=== PATIENT | male | born 1940 | race Two or more races ===

== ENCOUNTER 2016-10-23 18:45 | Observation (INO) | payer MEDICARE ==
[2016-10-23] MEDS ORDERED: KETOROLAC 30 MG/ML 1 ML VIAL IVP STA (19:10)
[2016-10-23] MEDS ORDERED: SODIUM CHLORIDE 0.9% 1,000 ML IV STA (19:10)
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
[2016-10-23 20:13] LABS: Basophils # (A) 0.1 k/uL (0-0.2); Basophils % (A) 1 %; CHCM 35.3; Eosinophils # (A) 0.3 k/uL (0-0.7); Eosinophils % (A) 3 %; HCT 35.2 % (39.0-53.0); HDW 2.99; HGB 11.7 gm/dL (13.0-17.5); Luc # (Auto) 0.11; Luc % (Auto) 1; Lymphocytes # (A) 1.9 k/uL (1.0-4.8); Lymphocytes % (A) 21 %; MCH 32.2 pg (25.0-35.0); MCHC 33.3 g/dL (31.0-37.0); MCV 96.9 fL (80.0-100.0); Mean Platelet Volume 9.2; Monocytes # (A) 0.6 k/uL (0-1.0); Monocytes % (A) 6 %; Neutrophils # (A) 6.1 k/uL (1.3-7.7); Neutrophils % (A) 68 %; RBC 3.63 m/uL (4.30-5.90); RDW 13.5 % (11.5-15.5)
--- NOTE | 2016-10-23 20:15 | XR ---
EXAMINATION TYPE: XR chest 2V DATE OF EXAM: 10/23/2016 8:05 PM COMPARISON: 02/18/2016 HISTORY: Chest pain TECHNIQUE: Frontal and lateral views of the chest are obtained. FINDINGS: There is no heart failure nor confluent pneumonic infiltrate. There is a small linear dens ity in the left lower lobe. There are no hilar masses. There are chest leads. Bony thorax is intact. IMPRESSION: Minimal subsegmental atelectasis at the left lung base is new compared to old exam. Norm al heart.
[2016-10-23 20:25] LABS: Calcium 8.7 mg/dL (8.4-10.2); Magnesium 2.1 mg/dL (1.6-2.3); Potassium 4.6 mmol/L (3.5-5.1); Total Bilirubin 0.4 mg/dL (0.2-1.3); Total Protein 6.5 g/dL (6.3-8.2)
[2016-10-23 20:29] LABS: Partial Thromboplastin Time 30.4 sec (22.0-30.0); Prothrombin Time 10.5 sec (9.0-12.0)
[2016-10-23 20:38] LABS: Creatine Kinase 53 U/L (55-170)
[2016-10-23 20:52] LABS: Creatine Kinase MB 0.6 ng/mL (0.0-2.4); Troponin I <0.012 ng/mL (0.000-0.034)
[2016-10-23] MEDS ORDERED: NITROGLYCERIN SL TABS 0.4 MG TAB SUBLINGUAL PRN (22:39)
[2016-10-23] MEDS ORDERED: LORazepam 1 MG TAB PO PRN (22:41)
[2016-10-23] MEDS ORDERED: ZOLPIDEM 10 MG TAB PO PRN (22:41)
[2016-10-23] MEDS ORDERED: HEPARIN SODIUM,PORCINE 5,000 UNIT/ML 1 ML VIAL IV STA (22:44)
[2016-10-23] MEDS: HEPARIN SODIUM,PORCINE/D5W PMX 25,000 UNIT in DEXTROSE/WATER 1 500ML.BAG IV SCH (23:23)
[2016-10-23 23:59] LABS: Glucose,Whole Blood 152 mg/dL (75-99)
[2016-10-24 00:30] VITALS: BMI 26.7
[2016-10-24 03:50] LABS: Creatine Kinase 54 U/L (55-170)
[2016-10-24 04:02] LABS: Creatine Kinase MB 0.7 ng/mL (0.0-2.4); Troponin I <0.012 ng/mL (0.000-0.034)
[2016-10-24] MEDS: NITROGLYCERIN OINT 1 INCH/GM PACKET TOPICAL SCH ×3 (05:59→19:24)
[2016-10-24 07:35] LABS: Glucose,Whole Blood 106 mg/dL (75-99)
[2016-10-24] MEDS: INSULIN LISPRO (humaLOG) 300 UNIT/3 ML VIAL SQ SCH ×4 (08:10→20:35)
[2016-10-24] MEDS: HEPARIN SODIUM,PORCINE/D5W PMX 25,000 UNIT in DEXTROSE/WATER 1 500ML.BAG IV SCH (08:17)
[2016-10-24 08:19] LABS: Cholesterol 117 mg/dL (<200); HDL Cholesterol 36 mg/dL (40-60); Triglycerides 153 mg/dL (<150)
[2016-10-24] MEDS ORDERED: ISOSORBIDE MONONITRATE ER 30 MG TAB.ER.24H PO SCH (09:00)
[2016-10-24 09:04] LABS: Creatine Kinase 73 U/L (55-170)
[2016-10-24 09:18] LABS: Creatine Kinase MB 1.2 ng/mL (0.0-2.4); Troponin I <0.012 ng/mL (0.000-0.034)
--- NOTE | 2016-10-24 10:03 | NM ---
EXAMINATION TYPE: NM pul vent and perfuse DATE OF EXAM: 10/24/2016 9:56 AM COMPARISON: Chest radiograph dated 10/23/2016 HISTORY: Chest pain TECHNIQUE: Utilizing inhalation of 71.2 mCi Tc 99m DTPA aerosol and intravenous injection of 5.4 mCi of Tc 99m MAA, ventilation and perfusion images are acquired post injection in multiple projections. FINDINGS: Small left basilar nonsegmental matched defect is present corresponding to the left basilar atelectas is seen on chest radiograph dated 10/23/2016. Otherwise there is normal radiotracer distribution is no latricia in the remainder of the lungs. There is no evidence of mismatched defects. IMPRESSION: 1. Single nonsegmental matched defect of the left lower lobe corresponding to the left basilar ectasi s noted on the chest radiograph of 10/23/2016. 2. No mismatched defects to suggest pulmonary embolus. Very low probability for pulmonary embolus.
[2016-10-24] MEDS: SODIUM BICARBONATE TAB 650 MG TAB PO SCH ×3 (10:49→20:25)
[2016-10-24] MEDS: ASPIRIN 325 MG TAB PO SCH (10:49)
[2016-10-24] MEDS: traMADol 50 MG TAB PO SCH ×3 (10:49→20:24)
[2016-10-24] MEDS: OXYBUTYNIN CHLORIDE 5 MG TAB PO SCH ×2 (10:50→20:23)
[2016-10-24] MEDS: CILOSTAZOL 100 MG TAB PO SCH ×2 (10:50→20:22)
[2016-10-24] MEDS: PROPRANOLOL 20 MG TAB PO SCH ×3 (10:51→20:25)
[2016-10-24] MEDS: LISINOPRIL 5 MG TAB PO SCH (10:51)
[2016-10-24] MEDS: ATORVASTATIN 40 MG TAB PO SCH (10:51)
[2016-10-24] MEDS: LINAGLIPTIN 5 MG TABLET PO SCH (10:51)
[2016-10-24] MEDS: SERTRALINE 100 MG TAB PO SCH ×2 (10:51→20:24)
[2016-10-24 12:23] LABS: Glucose,Whole Blood 117 mg/dL (75-99)
--- NOTE | 2016-10-24 13:14 | CONS ---
DATE OF CONSULTATION: CHIEF COMPLAINT: Chest pain. Sunday is a 76-year-old gentleman with history of coronary artery disease, status post angioplasty, hypertension, bipolar mood disorder and dyslipidemia who presented to the hospital complaining of chest pain. He describes it as a sharp, precordial pain without definite radiation to neck, arm or back, unrelated to exertion and associated with diaphoresis. He went with these symptoms to his county administrator recently and he was to undergo a stress test as outpatient. He states that the chest discomfort has responded to nitroglycerin but pain also seemed to be chest wall pain. EKG does not show any ischemic changes. Cardiac enzymes have been negative. A d-dimer was done that was slightly elevated. Hence, he went on to have a V/Q scan that is low probability. He had a chest x-ray, which I reviewed and seems fairly benign. EKG is within normal limits. Past medical history is significant for hypertension, diabetes, dyslipidemia, bipolar mood disorder, coronary artery disease, status post angioplasty. Medications include Januvia, Neurontin, tramadol, Requip, Ambien, Zoloft, Seroquel, Inderal, Ditropan, lisinopril, Ativan, Imdur, Pletal, Lipitor and aspirin. ALLERGIES: There are no known drug allergies. Family history is negative for premature coronary artery disease. Social history is negative for smoking, EtOH abuse, or drug abuse. REVIEW OF SYSTEMS: HEENT is unremarkable. CARDIAC: As described above. RESPIRATORY: Negative. GI: Negative. GENITOURINARY: Negative. ALLERGY/IMMUNOLOGY: Negative. SKIN: Negative. ENDOCRINE: Negative. DERM: Negative. CONSTITUTIONAL: Negative. Rest of the system review is not relevant. On exam, comfortable at rest. Vital signs are stable. There is no jugular venous distention. Carotid upstroke is normal. There is no bruit. Chest exam reveals good air entry bilaterally. Heart exam reveals first and second heart sounds. No gallop. No murmur. Abdomen is soft, nontender. Exam of the extremities did not reveal edema. Peripheral pulses are felt. Patient had an echo done which I reviewed, shows normal function and wall motion. EKG is normal. Cardiac enzymes are normal. ASSESSMENT: 1. Chest pain. 2. Coronary artery disease, status post angioplasty. 3. Uncontrolled hypertension. 4. Dyslipidemia. PLAN: Patient's chest discomfort seems atypical and probably noncardiac in origin. I am going to stop the IV heparin, increase the dose of Zestril to 10 mg daily for more optimal control of his blood pressure. He is stable to be discharged home, keep his outpatient followup with Dr. Chow in the office and have an outpatient stress test and followup.
[2016-10-24 13:59] LABS: Hemoglobin A1C 6.2 % (4.2-6.1)
--- NOTE | 2016-10-24 14:06 | ECHOF ---
Referral Reason:cp MEASUREMENTS -------- HEIGHT: 170.2 cm WEIGHT: 77.6 kg BP: 171/74 IVSd: 1.0 cm (0.6 - 1.1) LVIDd: 3.8 cm (3.9 - 5.3) LVPWd: 1.0 cm (0.6 - 1.1) LVIDs: 2.4 cm LA Diam: 3.3 cm (2.7 - 3.8) RVIDd: 2.7 cm (< 3.3) Ao Diam: 3.4 cm (2.0 - 3.7) AV Cusp: 2.4 cm (1.5 - 2.6) EPSS: 0.2 cm MV E Burton: 0.96 m/s MV DecT: 279 ms MV A Burton: 1.07 m/s MV E/A Ratio: 0.89 MV EF SLOPE: 92.75 mm/s (70 - 150) MV EXCURSION: 16.70 mm (> 18.000) FINDINGS -------- Sinus rhythm. This was a technically good study. The left ventricular size is normal. Left ventricular wall thickness is normal. Overall left ventricular systolic function is normal with, an EF between 55 - 60 %. The right ventricle is normal in size. The left atrium is normal in size. The right atrium is normal in size. Aortic valve is trileaflet and is mildly thickened. Mild mitral annular calcification present. There is trace mitral regurgitation. The tricuspid valve appears structurally normal. No regurgitation noted Trace/mild (physiologic) pulmonic regurgitation. CONCLUSIONS -------- 1. Sinus rhythm. 2. Mild mitral annular calcification present. 3. There is trace mitral regurgitation. 4. The tricuspid valve appears structurally normal. 5. Trace/mild (physiologic) pulmonic regurgitation. 6. This was a technically good study. 7. The left ventricular size is normal. 8. Left ventricular wall thickness is normal. 9. Overall left ventricular systolic function is normal with, an EF between 55 - 60 %. 10. The right ventricle is normal in size. 11. The left atrium is normal in size. 12. The right atrium is normal in size. 13. Aortic valve is trileaflet and is mildly thickened. IRRIGATOR VALVE PIPE: Janette Christine [facility]
--- NOTE | 2016-10-24 16:53 | HP ---
This dictation is both H&P and Discharge Summary. DATE OF ADMISSION: A 76-year-old gentleman came in with complaints of chest pain in the left substernal area, appears to be noncardiac and patient had an echocardiogram which is essentially within normal limits. Patient had chest pain which completely resolved at this point of time, was hypertensive and severe nonradiating, not associated with shortness of breath. Patient complained of a bit of pleuritic component because of which patient had a V/Q scan which is essentially negative. Patient's kidney function is not normal. Patient's baseline creatinine appears to be around 1.5 during his last hospitalization and it has gone up to 2.03 today and patient is complaining of multiple episodes of diarrhea today morning, which he says completely resolved at this point of time. Will try and obtain a C. diff testing and if patient does not have any diarrhea, patient will discharged later today in the next couple of hours and if patient's IV fluids are discontinued, I will continue with IV fluids until he is discharged home and also patient is on MAKEDA inhibitor, which will be discontinued, and will use amlodipine because of his kidney dysfunction which is acute renal failure and patient will follow with Dr. Reilly Higginbotham as an outpatient. Patient is cleared for discharge from cardiology perspective. Patient denied any shortness of breath. Patient's chest pain has been completely resolved at this point of time. Patient says it may be related to acid reflux, too. Patient denied any nausea. The patient denied any fever, chills. Patient denied any flulike symptoms. REVIEW OF SYSTEMS: CARDIOVASCULAR: As described in HPI. GASTROINTESTINAL: As described in HPI. CONSTITUTIONAL: No fever, no malaise, no fatigue. HEENT: No recent visual problems or hearing problems. Denied any sore throat. PULMONARY: No shortness of breath, no cough, no hemoptysis. NEUROLOGICAL: No headaches, no weakness, no numbness. HEMATOLOGICAL: Denies any bleeding or petechiae. GENITOURINARY: Denies any burning micturition, frequency, or urgency. MUSCULOSKELETAL/RHEUMATOLOGICAL: Denies any joint pain, swelling, or any muscle pain. ENDOCRINE: Denies any polyuria or polydipsia. The rest of the 14 point review of systems is negative. Home medications include: 1. Atorvastatin. 2. Isosorbide mononitrate. 3. Lorazepam. 4. Oxybutynin. 5. Propranolol. 6. Aspirin. 7. Sertraline. 8. Lisinopril. 9. Cilostazol. 10. Nitroglycerin. 11. Seroquel. 12. Ambien. 13. Ropinirole. 14. Gabapentin. 15. Sodium bicarbonate. 16. Sitagliptin. 17. Tramadol. ALLERGIES: No known drug allergies. 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 FAMILY HISTORY: Significant for mother with hyperlipidemia, hypertension, and brain cancer. Father with hyperlipidemia and hypertension. PHYSICAL EXAMINATION: VITAL SIGNS: Temperature 98.1, pulse of 88, respiratory rate of 18, blood pressure 187/83, saturating at 98% on room air. GENERAL: The patient is alert and oriented x3, not in any acute distress. Well developed, well nourished. HEENT: Pupils are round and equally reacting to light. EOMI. No scleral icterus. No conjunctival pallor. Normocephalic, atraumatic. No pharyngeal erythema. No thyromegaly. CARDIOVASCULAR: S1 and S2 present. No murmurs, rubs, or gallops. PULMONARY: Chest is clear to auscultation, no wheezing or crackles. ABDOMEN: Soft, nontender, nondistended, normoactive bowel sounds. No palpable organomegaly. MUSCULOSKELETAL: No joint swelling or deformity. EXTREMITIES: No cyanosis, clubbing, or pedal edema. NEUROLOGICAL: Gross neurological examination did not reveal any focal deficits. SKIN: No rashes. LABORATORY DATA: CBC, CMP are abnormal for elevated creatinine of 2.03. Baseline creatinine as mentioned above, BUN of 28. Troponins are negative. LDL is 50. EKG did not show any acute ST-T wave changes. ASSESSMENT AND PLAN: 1. Chest pain, appears to be noncardiac. Ruled out acute coronary artery syndrome and ruled out unstable angina. Patient is cleared for discharge from cardiology perspective. Patient had an echocardiogram, did not show any significant wall motion abnormalities. Patient will be discharged today. 2. Acute renal failure, chronic kidney disease. MAKEDA inhibitor will be discontinued and patient will be started on amlodipine instead and patient will be given IV hydration before his discharge, probably related to diarrhea. 3. Chronic kidney disease stage III, probably related to diabetic nephropathy and excessive dyslipidemia. 4. Coronary artery disease, status post angioplasty. 5. Hypertension. 6. Hyperlipidemia. Will repeat basic metabolic profile again. If there is improvement in creatinine or close to his baseline, then patient will be discharged and will make sure patient does not have any diarrhea, patient probably has viral diarrhea, and C. diff testing will be obtained if he has diarrhea again. Ini that situation, patient was hold his discharge. If patient is diarrhea free and if his creatinine improves close to his baseline, patient will be discharged today. DISCHARGE DIET: Cardiac and ADA 1800 calorie diet. Follow with Dr. Reilly Higginbotham in 3 to 5 days. Activity as tolerated. Follow with Cardiology as scheduled. Patient will be given 14 days of empiric Prilosec for possibility of gastroesophageal reflux disease contributing to his admission symptoms.
[2016-10-24 16:55] LABS: Glucose,Whole Blood 245 mg/dL (75-99)
[2016-10-24 17:05] LABS: Calcium 8.8 mg/dL (8.4-10.2); Potassium 4.9 mmol/L (3.5-5.1)
[2016-10-24] MEDS: SODIUM CHLORIDE 0.9% 1,000 ML IV SCH ×2 (19:23→20:39)
[2016-10-24 20:35] LABS: Glucose,Whole Blood 117 mg/dL (75-99)
[2016-10-24] MEDS ORDERED: QUEtiapine 50 MG TAB PO SCH (21:00)
[2016-10-24] MEDS ORDERED: GABAPENTIN 400 MG CAP PO SCH (21:00)
[2016-10-25] MEDS: traMADol 50 MG TAB PO SCH ×2 (05:18→09:06)
[2016-10-25 06:41] LABS: Glucose,Whole Blood 97 mg/dL (75-99)
[2016-10-25 07:31] LABS: Calcium 8.2 mg/dL (8.4-10.2); Potassium 4.2 mmol/L (3.5-5.1)
[2016-10-25 07:55] VITALS: RESP 18
--- NOTE | 2016-10-25 08:35 | PN ---
Sunday is a 76-year-old gentleman who is admitted to hospital with atypical chest pain, ruled out for myocardial infarction, doing well. Was supposed to go home, but did not apparently because of elevated BUN and creatinine. His echocardiogram shows normal LV function. On exam, comfortable at rest. Vital signs are stable. There is no jugular venous distention. Chest exam reveals good air entry bilaterally. Heart exam reveals first and second heart sounds. No gallop. Abdomen is soft, nontender. Exam of the extremities did not reveal any edema. Peripheral pulses are felt. ASSESSMENT: 1. Chest pain, myocardial infarction ruled out. 2. Renal insufficiency. PLAN: Patient already had outpatient echocardiogram stress test set. He is going to keep this appointment and pursue it further.
[2016-10-25] MEDS: INSULIN LISPRO (humaLOG) 300 UNIT/3 ML VIAL SQ SCH ×2 (08:59→13:30)
[2016-10-25] MEDS: SODIUM BICARBONATE TAB 650 MG TAB PO SCH (09:05)
[2016-10-25] MEDS: PROPRANOLOL 20 MG TAB PO SCH (09:05)
[2016-10-25] MEDS: SERTRALINE 100 MG TAB PO SCH (09:05)
[2016-10-25] MEDS: CILOSTAZOL 100 MG TAB PO SCH (09:05)
[2016-10-25] MEDS: OXYBUTYNIN CHLORIDE 5 MG TAB PO SCH (09:06)
[2016-10-25] MEDS: ASPIRIN 325 MG TAB PO SCH (09:06)
[2016-10-25] MEDS: LINAGLIPTIN 5 MG TABLET PO SCH (09:06)
[2016-10-25] MEDS: ATORVASTATIN 40 MG TAB PO SCH (09:06)
[2016-10-25] MEDS: LISINOPRIL 5 MG TAB PO SCH (10:59)
[2016-10-25 12:24] LABS: Glucose,Whole Blood 95 mg/dL (75-99)
[2016-10-25 12:56] VITALS: BP 181/80; TEMP 98.1
[2016-10-25 13:09] VITALS: PULSE 88
--- NOTE | 2016-10-26 12:49 | DS ---
DATE OF ADMISSION: 10/23/2016 DATE OF DISCHARGE: 10/25/2016 Patient is a 76-year-old admitted with diarrhea and chest pain. Patient was ruled out acute coronary artery syndrome and patient was cleared for discharge from Cardiology perspective. Patient's kidney function did not improve in spite of IV fluids. I will still go ahead and discharge the patient as patient's diarrhea resolved. I am hoping his kidney function will improve. Patient is insisting on discharge at this time and patient has mildly elevated creatinine from his baseline of around 1.6 to 2.08. I will repeat the BMP and encourage him to drink lots of water at home and repeat electrolytes will be done and patient will follow with Dr. Reilly Higginbotham as an outpatient. Because of the worsening renal function, I discontinued MAKEDA inhibitor. Patient was started on calcium channel bryan instead and patient is seen and examined on the day of discharge. Vitals are stable. PHYSICAL EXAMINATION: GENERAL: The patient is alert and oriented x3, not in any acute distress. Well developed, well nourished. HEENT: Pupils are round and equally reacting to light. EOMI. No scleral icterus. No conjunctival pallor. Normocephalic, atraumatic. No pharyngeal erythema. No thyromegaly. CARDIOVASCULAR: S1 and S2 present. No murmurs, rubs, or gallops. PULMONARY: Chest is clear to auscultation, no wheezing or crackles. ABDOMEN: Soft, nontender, nondistended, normoactive bowel sounds. No palpable organomegaly. MUSCULOSKELETAL: No joint swelling or deformity. EXTREMITIES: No cyanosis, clubbing, or pedal edema. NEUROLOGICAL: Gross neurological examination did not reveal any focal deficits. SKIN: No rashes. FINAL DIAGNOSES: 1. Chest pain, ruled out acute coronary artery syndrome, noncardiac in nature, probably musculoskeletal. 2. Acute renal failure on chronic kidney disease stage III secondary to diabetes mellitus and diabetic nephropathy. 3. Coronary artery disease. 4. Hypertension. 5. Hyperlipidemia. Please refer my to my depart summary for the list of the discharge medications. Activity as tolerated. Cardiac diet. Follow up with Dr. Reilly Higginbotham in 3 to 7 days.
== END 2016-10-25 14:15 | disposition home or self-care (01) ==
LOC: EC 18:45 → 3OBS 22:39
PROVIDERS: ADMIT Family Medicine; ATTEND Family Medicine
DX: R07.89 Other chest pain (principal); I12.9 Hypertensive chronic kidney disease with stage 1 through stage 4 chronic kidney disease, or unspecified chronic kidney disease; E11.22 Type 2 diabetes mellitus with diabetic chronic kidney disease; E11.21 Type 2 diabetes mellitus with diabetic nephropathy; N17.9 Acute kidney failure, unspecified; N18.3 Chronic kidney disease, stage 3 (moderate); E11.40 Type 2 diabetes mellitus with diabetic neuropathy, unspecified; R19.7 Diarrhea, unspecified; E78.5 Hyperlipidemia, unspecified; R79.89 Other specified abnormal findings of blood chemistry; F31.9 Bipolar disorder, unspecified; F41.9 Anxiety disorder, unspecified; G25.81 Restless legs syndrome; M54.9 Dorsalgia, unspecified; G89.29 Other chronic pain; I25.10 Atherosclerotic heart disease of native coronary artery without angina pectoris; Z79.82 Long term (current) use of aspirin; Z79.899 Other long term (current) drug therapy; Z79.84 Long term (current) use of oral hypoglycemic drugs; Z79.891 Long term (current) use of opiate analgesic; Z85.038 Personal history of other malignant neoplasm of large intestine; Z87.891 Personal history of nicotine dependence; Z98.61 Coronary angioplasty status; Z79.02 Long term (current) use of antithrombotics/antiplatelets; Z82.49 Family history of ischemic heart disease and other diseases of the circulatory system
CPT/HCPCS: 96375; 96376; 99285; 36415; 93005; 93306; 85379; 83880; 80061; 80053; 80048 ×2; 82150; 83036; 82550 ×2; 82553 ×2; 83690; 83735; 84484 ×2; 85025; 85610; 85730 ×2; 80299; 71020; 78582; G0378 ×3; A9540; A9567; J1644 ×3; J1885; 87324; 96366

== ENCOUNTER → 2016-12-04 | Outpatient (CLI) | payer MEDICARE ==
[2016-12-04 11:56] LABS: Basophils # (A) 0.1 k/uL (0-0.2); Basophils % (A) 1 %; CHCM 34.3; Eosinophils # (A) 0.3 k/uL (0-0.7); Eosinophils % (A) 4 %; HCT 37.5 % (39.0-53.0); HDW 3.15; HGB 12.4 gm/dL (13.0-17.5); Luc # (Auto) 0.11; Luc % (Auto) 1; Lymphocytes # (A) 1.5 k/uL (1.0-4.8); Lymphocytes % (A) 19 %; MCHC 33.1 g/dL (31.0-37.0); MCV 99.7 fL (80.0-100.0); Mean Platelet Volume 8.3; Monocytes # (A) 0.4 k/uL (0-1.0); Monocytes % (A) 4 %; Neutrophils % (A) 72 %; RBC 3.77 m/uL (4.30-5.90); WBC 8.3 k/uL (3.8-10.6); WBC (Perox) 8.29
[2016-12-04 12:13] LABS: Magnesium 2.3 mg/dL (1.6-2.3); Potassium 4.4 mmol/L (3.5-5.1); Uric Acid 5.8 mg/dL (3.5-8.5)
[2016-12-04 12:21] LABS: % Iron Saturation 45.6 % (20-50)
[2016-12-04 12:28] LABS: Appearance,Urine Clear (Clear); Bilirubin,Urine Negative (Negative); Glucose,Urine (UA) Negative (Negative); Ketones,Urine Negative (Negative); Leukocyte Esterase,Urine Negative (Negative); Nitrite,Urine Negative (Negative); Protein,Urine Negative (Negative); Specific Gravity,Urine 1.008 (1.001-1.035); UA Billing (MACRO vs. MICRO) CHEM; Urobilinogen,Urine <2.0 mg/dL (<2.0)
== END | disposition home or self-care (01) ==
LOC: LABWHC1 11:23
PROVIDERS: ATTEND Internal Medicine
DX: N18.4 Chronic kidney disease, stage 4 (severe) (principal); N39.0 Urinary tract infection, site not specified; D64.9 Anemia, unspecified; E55.9 Vitamin D deficiency, unspecified; E21.3 Hyperparathyroidism, unspecified; M10.9 Gout, unspecified
CPT/HCPCS: 36415; 80048; 81003; 82306; 82728; 83540; 83550; 83735; 83970; 84100; 84550; 85025

== ENCOUNTER 2017-01-25 06:47 | Day surgery (SDC) | payer MEDICARE ==
[2017-01-21 11:13] VITALS: BMI 27.8
[~2017-01-25 06:47] MED LIST: LACTATED RINGERS 1,000 ML IV SCH
[2017-01-25 07:22] VITALS: RESP 18; TEMP 98.1
[2017-01-25 07:22] LABS: Glucose,Whole Blood 144 mg/dL (75-99)
[2017-01-25] MEDS ORDERED: PHENYLEPHRINE-0.9% NACL SYG 1 MG/10 ML SYRINGE ONE (07:32)
[2017-01-25] MEDS ORDERED: GLYCOPYRROLATE 0.2 MG/ML 2 ML VIAL ONE (07:32)
[2017-01-25] MEDS ORDERED: ePHEDrine 50 MG/ML 1 ML AMP ONE (07:32)
[2017-01-25] MEDS ORDERED: PROPOFOL 10 MG/ML 20 ML VIAL IV ONE (07:32)
--- NOTE | 2017-01-25 08:04 | P.PCN ---
Date of Procedure: 01/25/17 Preoperative Diagnosis: Prior colon cancer Postoperative Diagnosis: Diverticuli, internal hemorrhoids, no recurrent cancer Procedure(s) Performed: Colonoscopy Implants: Anesthesia: MAC Surgeon: Lashon Robert Estimated Blood Loss (ml): 0 IV fluids (ml): 400 Pathology: none sent Condition: stable Disposition: PACU Indications for Procedure: History of colon cancer Operative Findings: No evidence of recurrent cancer, extensive diverticuli, internal hemorrhoids Description of Procedure: Mr. Duncan was taken to the endoscopy suite and was placed in the left lateral decubitus position. Sedation was administered. Rectal examination did not reveal any lesions of concern. Patient was noted to have good sphincter tone. Colonoscope was passed through the anus into the rectum. Was passed through the sigmoid colon up to the splenic flexure. Was passed through the transverse colon to the area of the anastomosis. Circumferential observation mucosa did not reveal any evidence of recurrent cancer at the anastomosis. No mucosal lesions of concern were seen in the transverse colon. As the scope was withdrawn no mucosal lesions of concern were seen in the left colon or sigmoid colon. The patient was noted to have moderate to extensive sigmoid diverticuli with some tortuosity of the sigmoid colon. The scope was brought down into the rectum where it was retroflexed. Internal hemorrhoids were identified. Approximately 6 minutes were taken to withdraw the scope from the area of the anastomosis to the rectum. We discussed preoperative with the the possibility of an EGD and this will most likely be performed at a later time. At this time the patient wished to proceed with colonoscopy. Impression/plan: 1. No evidence of recurrent cancer 2. Sigmoid diverticuli with tortuosity of the sigmoid colon 3. Internal hemorrhoids Plan: 1. Close surveillance 2. Conservative management of diverticuli and hemorrhoids
--- NOTE | 2017-01-25 08:05 | P.DS ---
Providers Attending physician: Lashon Robert Primary care physician: Stated None Plan - Discharge Summary Discharge Medication List Atorvastatin Calcium [Lipitor] 40 mg PO DAILY 01/28/14 [History] Isosorbide Mononitrate [Imdur] 30 mg PO DAILY 01/28/14 [History] LORazepam [Ativan] 2 mg PO BID PRN 01/28/14 [History] Oxybutynin Chloride [Ditropan] 5 mg PO TID 01/28/14 [History] Aspirin EC [Ecotrin] 325 mg PO DAILY 02/18/16 [History] Sertraline [Zoloft] 100 mg PO BID 02/18/16 [History] Cilostazol [Pletal] 50 mg PO BID 08/09/16 [History] Nitroglycerin Sl Tabs [Nitrostat] 0.4 mg SUBLINGUAL Q5M PRN 08/09/16 [History] QUEtiapine [SEROquel] 50 mg PO DAILY 08/09/16 [History] Zolpidem [Ambien] 10 mg PO HS 08/20/16 [History] rOPINIRole HCL [Requip] 0.5 mg PO HS 08/20/16 [History] Gabapentin 800 mg PO HS 10/23/16 [History] Sodium Bicarbonate Tab 300 mg PO TID 10/23/16 [History] sitaGLIPtin [Januvia] 50 mg PO DAILY 10/23/16 [History] traMADol HCL [traMADol HCL ER] 50 mg PO Q6H PRN 10/23/16 [History] Omeprazole [PriLOSEC] 40 mg PO [id number]-[id number] #14 capsule. 10/24/16 [Rx] Atenolol [Tenormin] 50 mg PO DAILY 01/21/17 [History] Ferrous Sulfate [Feosol] 325 mg PO DAILY 01/21/17 [History] Furosemide [Lasix] 40 mg PO BID 01/21/17 [History] HYDROcodone/APAP 10-325MG [[place] 10-325] 1 tab PO Q6H PRN 01/21/17 [History] Lisinopril [Zestril] 5 mg PO DAILY 01/21/17 [History] Multivitamins, Thera [Multivitamin (formulary)] 1 tab PO DAILY 01/21/17 [History ] Follow up Appointment(s)/Referral(s): Lashon Robert MD [STAFF PHYSICIAN] - 3 Days Activity/Diet/Wound Care/Special Instructions: Diverticular diet Discharge Disposition: HOME SELF-CARE
[2017-01-25 08:33] VITALS: BP 121/61; PULSE 62
== END 2017-01-25 08:57 | disposition home or self-care (01) ==
LOC: ORWHC2ENDO 06:47
PROVIDERS: ATTEND Surgery
DX: Z12.11 Encounter for screening for malignant neoplasm of colon (principal); Z85.038 Personal history of other malignant neoplasm of large intestine; K57.30 Diverticulosis of large intestine without perforation or abscess without bleeding; K64.8 Other hemorrhoids; Q43.8 Other specified congenital malformations of intestine; I10 Essential (primary) hypertension; E78.5 Hyperlipidemia, unspecified; I25.10 Atherosclerotic heart disease of native coronary artery without angina pectoris; E11.9 Type 2 diabetes mellitus without complications; N19 Unspecified kidney failure; K21.9 Gastro-esophageal reflux disease without esophagitis; Z79.84 Long term (current) use of oral hypoglycemic drugs; Z79.891 Long term (current) use of opiate analgesic; Z79.899 Other long term (current) drug therapy
CPT/HCPCS: J2370; J2704; G0105

== ENCOUNTER → 2017-02-04 | Outpatient (CLI) | payer MEDICARE ==
[2017-02-04 11:14] LABS: Appearance,Urine Clear (Clear); Bilirubin,Urine 2+ (Negative); Glucose,Urine (UA) Negative (Negative); Ketones,Urine Negative (Negative); Leukocyte Esterase,Urine Negative (Negative); Nitrite,Urine Negative (Negative); PH, Urine 5.5 (5.0-8.0); Protein,Urine Negative (Negative); Specific Gravity,Urine 1.009 (1.001-1.035); UA Billing (MACRO vs. MICRO) CHEM; Urobilinogen,Urine <2.0 mg/dL (<2.0)
[2017-02-04 11:15] LABS: Basophils % (A) 0 %; CH 34.2; CHCM 34.2; Eosinophils # (A) 0.2 k/uL (0-0.7); Eosinophils % (A) 3 %; HCT 36.8 % (39.0-53.0); HDW 2.99; HGB 12.4 gm/dL (13.0-17.5); Luc # (Auto) 0.06; Luc % (Auto) 1; Lymphocytes # (A) 1.1 k/uL (1.0-4.8); Lymphocytes % (A) 13 %; MCH 33.8 pg (25.0-35.0); MCHC 33.6 g/dL (31.0-37.0); MCV 100.7 fL (80.0-100.0); Monocytes # (A) 0.3 k/uL (0-1.0); Monocytes % (A) 4 %; Neutrophils # (A) 6.2 k/uL (1.3-7.7); Neutrophils % (A) 79 %; RBC 3.66 m/uL (4.30-5.90); RDW 13.6 % (11.5-15.5); WBC 7.9 k/uL (3.8-10.6); WBC (Perox) 8.51
[2017-02-04 11:47] LABS: Calcium 8.6 mg/dL (8.4-10.2); Magnesium 2.1 mg/dL (1.6-2.3); Phosphorous 4.6 mg/dL (2.5-4.5); Potassium 4.2 mmol/L (3.5-5.1); Uric Acid 7.5 mg/dL (3.5-8.5)
== END | disposition home or self-care (01) ==
LOC: LABWHC1 10:46
PROVIDERS: ATTEND Nurse Practitioner Family
DX: D64.9 Anemia, unspecified (principal); E83.39 Other disorders of phosphorus metabolism; E55.9 Vitamin D deficiency, unspecified; M10.9 Gout, unspecified; N39.0 Urinary tract infection, site not specified; N18.4 Chronic kidney disease, stage 4 (severe)
CPT/HCPCS: 36415; 80048; 81003; 82306; 82728; 83540; 83550; 83735; 83970; 84100; 84550; 85025

== ENCOUNTER 2017-02-19 04:38 | Emergency (ER) | payer MEDICARE ==
[2017-02-19 04:44] VITALS: BP 172/79; PULSE 61; RESP 20; TEMP 97.9
[2017-02-19] MEDS ORDERED: KETOROLAC 60 MG/2 ML VIAL IM STA (04:56)
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
== END 2017-02-19 05:08 | disposition home or self-care (01) ==
LOC: EC 04:38
DX: E11.40 Type 2 diabetes mellitus with diabetic neuropathy, unspecified (principal); I25.10 Atherosclerotic heart disease of native coronary artery without angina pectoris; E78.5 Hyperlipidemia, unspecified; I10 Essential (primary) hypertension; G25.81 Restless legs syndrome; F41.9 Anxiety disorder, unspecified; F32.9 Major depressive disorder, single episode, unspecified; N28.9 Disorder of kidney and ureter, unspecified; Z79.82 Long term (current) use of aspirin; Z79.84 Long term (current) use of oral hypoglycemic drugs; Z79.899 Other long term (current) drug therapy; Z87.891 Personal history of nicotine dependence
CPT/HCPCS: 99283; 96372; J1885

== ENCOUNTER 2017-03-18 02:08 | Emergency (ER) | payer MEDICARE ==
[2017-03-18 02:17] VITALS: BP 112/68; PULSE 70; RESP 18; TEMP 98.5
[2017-03-18] MEDS ORDERED: MORPHINE SULFATE 10 MG/ML SYRINGE IM STA (02:31)
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
== END 2017-03-18 03:04 | disposition home or self-care (01) ==
LOC: EC 02:08
DX: E11.40 Type 2 diabetes mellitus with diabetic neuropathy, unspecified (principal); I25.10 Atherosclerotic heart disease of native coronary artery without angina pectoris; E78.5 Hyperlipidemia, unspecified; G25.81 Restless legs syndrome; F41.9 Anxiety disorder, unspecified; F32.9 Major depressive disorder, single episode, unspecified; Z79.84 Long term (current) use of oral hypoglycemic drugs; Z79.899 Other long term (current) drug therapy; Z87.891 Personal history of nicotine dependence
CPT/HCPCS: 99283; 96372; J2270

== ENCOUNTER 2017-03-30 00:51 | Emergency (ER) | payer MEDICARE ==
[2017-03-30] MEDS ORDERED: KETOROLAC 30 MG/ML 1 ML VIAL IM STA (01:32)
[2017-03-30] MEDS ORDERED: MORPHINE SULFATE 4 MG/ML SYRINGE IM STA (01:33)
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
[2017-03-30 02:38] VITALS: BP 128/62; PULSE 64; RESP 15; TEMP 97.5
--- NOTE | 2017-03-30 02:45 | XR ---
EXAM: XR Right Knee, 3 views CLINICAL HISTORY: Reason: Right knee pain TECHNIQUE: Three views of the right knee. COMPARISON: No relevant prior studies available. FINDINGS: Bones/joints: The bones are osteopenic. There is advanced tricompartmental degenerative change, with slight medial shift of the femoral condyles in relation to the tibial plateau on the frontal view. No evidence of dislocation or acute fracture seen. Small suprapatellar joint effusion. Soft tissues: Unremarkable. Vasculature: Diffuse arterial vascular calcifications. IMPRESSION: 1. Osteopenia with marked tricompartmental degenerative changes. No superimposed acute fracture. 2. Small suprapatellar joint effusion is nonspecific.
== END 2017-03-30 02:37 | disposition home or self-care (01) ==
LOC: EC 00:51
DX: G62.9 Polyneuropathy, unspecified (principal); M17.11 Unilateral primary osteoarthritis, right knee; G25.81 Restless legs syndrome; I25.10 Atherosclerotic heart disease of native coronary artery without angina pectoris; E11.9 Type 2 diabetes mellitus without complications; E78.5 Hyperlipidemia, unspecified; I10 Essential (primary) hypertension; F32.9 Major depressive disorder, single episode, unspecified; F41.9 Anxiety disorder, unspecified; Z85.038 Personal history of other malignant neoplasm of large intestine; Z87.891 Personal history of nicotine dependence; Z79.82 Long term (current) use of aspirin; Z79.84 Long term (current) use of oral hypoglycemic drugs; Z79.899 Other long term (current) drug therapy
CPT/HCPCS: 99283; 96372 ×2; 73562; J2270; J1885

== ENCOUNTER → 2017-04-02 | Outpatient (CLI) | payer MEDICARE ==
[2017-04-02 12:04] LABS: Basophils % (A) 0 %; CHCM 34.4; Eosinophils # (A) 0.3 k/uL (0-0.7); Eosinophils % (A) 3 %; HCT 37.1 % (39.0-53.0); HDW 3.13; HGB 12.9 gm/dL (13.0-17.5); Luc # (Auto) 0.14; Luc % (Auto) 1; Lymphocytes # (A) 1.5 k/uL (1.0-4.8); Lymphocytes % (A) 14 %; MCH 34.7 pg (25.0-35.0); MCHC 34.8 g/dL (31.0-37.0); MCV 99.5 fL (80.0-100.0); Mean Platelet Volume 8.7; Monocytes # (A) 0.5 k/uL (0-1.0); Monocytes % (A) 4 %; Neutrophils # (A) 8.1 k/uL (1.3-7.7); Neutrophils % (A) 77 %; RBC 3.72 m/uL (4.30-5.90); RDW 13.8 % (11.5-15.5); WBC 10.5 k/uL (3.8-10.6)
[2017-04-02 12:06] LABS: Appearance,Urine Clear (Clear); Bilirubin,Urine 1+ (Negative); Glucose,Urine (UA) Negative (Negative); Ketones,Urine Negative (Negative); Leukocyte Esterase,Urine Negative (Negative); Nitrite,Urine Negative (Negative); Protein,Urine Trace (Negative); Specific Gravity,Urine 1.011 (1.001-1.035); UA Billing (MACRO vs. MICRO) CHEM; Urobilinogen,Urine <2.0 mg/dL (<2.0)
--- NOTE | 2017-04-02 12:07 | XR ---
EXAMINATION TYPE: XR knee complete RT DATE OF EXAM: 04/02/2017 CLINICAL HISTORY: pain TECHNIQUE: Three views of the right knee are obtained. COMPARISON: None. FINDINGS: There is no acute fracture/dislocation. Several degenerative narrowing all compartments. The overlying soft tissue appears unremarkable. IMPRESSION: There is no acute fracture or dislocation.ICD 10 NO FRACTURE, INITIAL EVALUATION
[2017-04-02 12:15] LABS: Magnesium 2.5 mg/dL (1.6-2.3); Phosphorous 3.9 mg/dL (2.5-4.5); Uric Acid 7.6 mg/dL (3.5-8.5)
[2017-04-02 13:01] LABS: Potassium 5.7 mmol/L (3.5-5.1)
== END | disposition home or self-care (01) ==
LOC: LABWHC1 11:22
PROVIDERS: ATTEND Family Medicine
DX: M23.91 Unspecified internal derangement of right knee (principal); N18.4 Chronic kidney disease, stage 4 (severe); D63.1 Anemia in chronic kidney disease; E55.9 Vitamin D deficiency, unspecified; E21.3 Hyperparathyroidism, unspecified; M10.9 Gout, unspecified; N39.0 Urinary tract infection, site not specified
CPT/HCPCS: 36415; 80048; 81003; 82728; 83540; 83550; 83735; 83970; 84100; 84550; 85025

== ENCOUNTER 2017-04-08 12:26 | Emergency (ER) | payer MEDICARE ==
[2017-04-08] MEDS ORDERED: ASPIRIN 325 MG TAB PO STA (13:19)
[2017-04-08] MEDS ORDERED: MORPHINE SULFATE 4 MG/ML SYRINGE IVP STA (13:19)
[2017-04-08 14:22] LABS: Appearance,Urine Clear (Clear); Bilirubin,Urine Negative (Negative); Glucose,Urine (UA) Negative (Negative); Ketones,Urine Negative (Negative); Leukocyte Esterase,Urine Negative (Negative); Nitrite,Urine Negative (Negative); Protein,Urine Negative (Negative); Specific Gravity,Urine 1.005 (1.001-1.035); UA Billing (MACRO vs. MICRO) CHEM; Urobilinogen,Urine <2.0 mg/dL (<2.0)
[2017-04-08 14:27] LABS: Basophils % (A) 1 %; CHCM 35.2; Eosinophils # (A) 0.2 k/uL (0-0.7); Eosinophils % (A) 3 %; HCT 34.6 % (39.0-53.0); HDW 2.93; HGB 12.1 gm/dL (13.0-17.5); Luc # (Auto) 0.06; Luc % (Auto) 1; Lymphocytes # (A) 1.1 k/uL (1.0-4.8); Lymphocytes % (A) 13 %; MCH 34.9 pg (25.0-35.0); MCHC 34.9 g/dL (31.0-37.0); MCV 100.1 fL (80.0-100.0); Mean Platelet Volume 9.4; Monocytes # (A) 0.3 k/uL (0-1.0); Monocytes % (A) 4 %; Neutrophils # (A) 6.8 k/uL (1.3-7.7); Neutrophils % (A) 79 %; RBC 3.46 m/uL (4.30-5.90); RDW 13.8 % (11.5-15.5); WBC 8.6 k/uL (3.8-10.6); WBC (Perox) 9.16
[2017-04-08 14:36] LABS: Calcium 8.2 mg/dL (8.4-10.2)
[2017-04-08 14:43] LABS: Potassium 4.8 mmol/L (3.5-5.1)
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
--- NOTE | 2017-04-08 15:30 | US ---
EXAMINATION TYPE: US venous doppler duplex LE BI DATE OF EXAM: 04/08/2017 3:15 PM COMPARISON: CLINICAL HISTORY: Pain. Bilateral leg pain, no hx of DVT or on blood thinners SIDE PERFORMED: Bilateral TECHNIQUE: The lower extremity deep venous system is examined utilizing real time linear array sonog johnathan with graded compression, doppler sonography and color-flow sonography. VESSELS IMAGED: External Iliac Vein (EIV) Common Femoral Vein Deep Femoral Vein Greater Saphenous Vein * Femoral Vein Popliteal Vein Small Saphenous Vein * Proximal Calf Veins (* superficial vessels) Right Leg: Appears negative for DVT Complex cystic lesion seen in posterior knee = 4.3x 2.8 x 1.6 cm Left Leg: Appears negative for DVT IMPRESSION: 1. THIS EXAMINATION IS NEGATIVE FOR DVT IN BOTH LEGS. 2. COMPLEX 4.3 CM POPLITEAL FOSSA CYST.
--- NOTE | 2017-04-08 15:32 | XR ---
EXAMINATION TYPE: XR chest 2V DATE OF EXAM: 04/08/2017 HISTORY: lower extremity pain. REFERENCE: Previous study dated 10/23/2016. FINDINGS: The patient has taken a relatively poor inspiration. Lungs appear clear. Pleural spaces are clear. The heart projects at the upper limits of normal. There is some unfolding of the thoracic aor ta. IMPRESSION: NO ACUTE INTRATHORACIC ABNORMALITY.
[2017-04-08 16:32] VITALS: BP 135/71; PULSE 62; RESP 16; TEMP 96.7
== END 2017-04-08 16:52 | disposition home or self-care (01) ==
LOC: EC 12:26
DX: G62.9 Polyneuropathy, unspecified (principal); E11.9 Type 2 diabetes mellitus without complications; E78.5 Hyperlipidemia, unspecified; I10 Essential (primary) hypertension; I25.10 Atherosclerotic heart disease of native coronary artery without angina pectoris; F41.9 Anxiety disorder, unspecified; F32.9 Major depressive disorder, single episode, unspecified; G25.81 Restless legs syndrome; Z85.038 Personal history of other malignant neoplasm of large intestine; Z87.891 Personal history of nicotine dependence; Z79.82 Long term (current) use of aspirin; Z79.84 Long term (current) use of oral hypoglycemic drugs; Z79.899 Other long term (current) drug therapy
CPT/HCPCS: 36415; 93005; 83880; 80048; 83605; 84484; 85025; 81003; 71020; 93970; 99284; 96374; J2270

== ENCOUNTER 2017-04-19 14:28 | Emergency (ER) | payer MEDICARE ==
[2017-04-19 14:46] VITALS: BP 118/76; PULSE 69; RESP 20; TEMP 97.4
[2017-04-19] MEDS ORDERED: LORazepam 2 MG/ML SYRINGE IM STA (15:07)
[2017-04-19] MEDS ORDERED: KETOROLAC 60 MG/2 ML VIAL IM STA (15:07)
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
== END 2017-04-19 15:25 | disposition home or self-care (01) ==
LOC: EC 14:28
DX: G25.81 Restless legs syndrome (principal); G62.9 Polyneuropathy, unspecified; F41.9 Anxiety disorder, unspecified; I25.10 Atherosclerotic heart disease of native coronary artery without angina pectoris; E11.9 Type 2 diabetes mellitus without complications; E78.5 Hyperlipidemia, unspecified; I10 Essential (primary) hypertension; Z85.038 Personal history of other malignant neoplasm of large intestine; Z87.891 Personal history of nicotine dependence; Z79.82 Long term (current) use of aspirin; Z79.84 Long term (current) use of oral hypoglycemic drugs; Z79.899 Other long term (current) drug therapy
CPT/HCPCS: 99283; 96372 ×2; J2060; J1885

== ENCOUNTER 2017-05-04 23:41 | Emergency (ER) | payer MEDICARE ==
[2017-05-05] MEDS ORDERED: SODIUM CHLORIDE 0.9% 1,000 ML IV STA ×2 (00:18)
[2017-05-05] MEDS ORDERED: ONDANSETRON 4 MG/2 ML VIAL IVP STA (00:18)
[2017-05-05 01:03] LABS: Basophils % (A) 0 %; CH 35.3; Eosinophils % (A) 0 %; HCT 34.9 % (39.0-53.0); HDW 2.89; HGB 11.7 gm/dL (13.0-17.5); Luc # (Auto) 0.04; Luc % (Auto) 0; Lymphocytes # (A) 0.7 k/uL (1.0-4.8); Lymphocytes % (A) 6 %; MCH 34.1 pg (25.0-35.0); MCHC 33.6 g/dL (31.0-37.0); MCV 101.5 fL (80.0-100.0); Macrocytosis Slight; Mean Platelet Volume 9.7; Monocytes # (A) 0.3 k/uL (0-1.0); Monocytes % (A) 2 %; Neutrophils # (A) 10.9 k/uL (1.3-7.7); Neutrophils % (A) 91 %; RBC 3.44 m/uL (4.30-5.90); RDW 13.6 % (11.5-15.5); WBC 11.9 k/uL (3.8-10.6); WBC (Perox) 12.12
[2017-05-05 01:14] LABS: Calcium 8.9 mg/dL (8.4-10.2); Potassium 4.3 mmol/L (3.5-5.1); Total Bilirubin 0.5 mg/dL (0.2-1.3); Total Protein 6.9 g/dL (6.3-8.2)
--- NOTE | 2017-05-05 01:21 | CT ---
EXAM: CT Head Without Intravenous Contrast CLINICAL HISTORY: Weakness TECHNIQUE: Axial computed tomography images of the head/brain without intravenous contrast. CTDI is 57.4 mGy and DLP is 957.5 mGy-cm. This CT exam was performed using one or more of the following dose reduction techniques: automated exposure control, adjustment of the mA and/or kV according to patient size, and/or use of iterative reconstruction technique. COMPARISON: 05/28/2014 FINDINGS: Brain: No acute intracranial hemorrhage, loss of lake-white differentiation, or significant mass effect. Ventricular and sulcal prominence commensurate with the patient's age. Areas of hypoattenuation in the periventricular white matter bilaterally are compatible with the sequela of chronic small vessel ischemic disease. Ventricles: Unremarkable. No ventriculomegaly. Bones/joints: The calvarium is intact. Soft tissues: Unremarkable. Sinuses: Mild mucosal thickening in the ethmoid sinuses. Mastoid air cells: Unremarkable. Orbits: Left globe prosthesis. Remote fracture of the medial wall of the left orbit. IMPRESSION: No acute intracranial abnormality.
--- NOTE | 2017-05-05 01:33 | XR ---
EXAM: XR Chest, 2 Views CLINICAL HISTORY: Reason: Weakness TECHNIQUE: Frontal and lateral views of the chest. COMPARISON: 04/08/2017 FINDINGS: Lungs: Unremarkable. No consolidation. Pleural space: Unremarkable. No pneumothorax. Heart: Stable cardiomediastinal silhouette. Mediastinum: See above. Bones/joints: No acute osseous abnormality. Upper abdomen: Persistent elevation of the right hemidiaphragm. IMPRESSION: No acute cardiopulmonary process.
[2017-05-05 01:37] LABS: Appearance,Urine Clear (Clear); Bilirubin,Urine Negative (Negative); Glucose,Urine (UA) 3+ (Negative); Ketones,Urine Negative (Negative); Leukocyte Esterase,Urine Negative (Negative); Nitrite,Urine Negative (Negative); Protein,Urine Negative (Negative); Specific Gravity,Urine 1.007 (1.001-1.035); UA Billing (MACRO vs. MICRO) CHEM; Urobilinogen,Urine <2.0 mg/dL (<2.0)
[2017-05-05 01:42] LABS: Creatine Kinase 64 U/L (55-170)
[2017-05-05] MEDS ORDERED: INSULIN REGULAR 100 UNIT/ML VIAL SQ ONE (01:50)
[2017-05-05 01:55] LABS: Creatine Kinase MB 0.8 ng/mL (0.0-2.4); Troponin I <0.012 ng/mL (0.000-0.034)
[2017-05-05 02:02] LABS: Partial Thromboplastin Time 32.3 sec (22.0-30.0); Prothrombin Time 10.6 sec (9.0-12.0)
[2017-05-05 02:40] LABS: Glucose,Whole Blood 239 mg/dL (75-99)
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
[2017-05-05 03:12] VITALS: BP 128/82; PULSE 80; RESP 16; TEMP 97.9
== END 2017-05-05 03:11 | disposition home or self-care (01) ==
LOC: EC 23:41
DX: E11.65 Type 2 diabetes mellitus with hyperglycemia (principal); R26.81 Unsteadiness on feet; I25.10 Atherosclerotic heart disease of native coronary artery without angina pectoris; E78.5 Hyperlipidemia, unspecified; I10 Essential (primary) hypertension; F32.9 Major depressive disorder, single episode, unspecified; F41.9 Anxiety disorder, unspecified; E11.40 Type 2 diabetes mellitus with diabetic neuropathy, unspecified; Z85.038 Personal history of other malignant neoplasm of large intestine; Z87.891 Personal history of nicotine dependence; Z79.82 Long term (current) use of aspirin; Z79.899 Other long term (current) drug therapy
CPT/HCPCS: 36415; 93005; 80053; 82550; 82553; 83605; 84484; 85025; 85610; 85730; 81003; 71020; 70450; 99285; 96374; 96361 ×2; J2405

== ENCOUNTER → 2017-05-28 | Outpatient (CLI) | payer MEDICARE ==
[2017-05-28 11:55] LABS: Calcium 8.8 mg/dL (8.4-10.2); Magnesium 2.6 mg/dL (1.6-2.3); Phosphorous 4.3 mg/dL (2.5-4.5); Potassium 4.8 mmol/L (3.5-5.1); Total Bilirubin 0.4 mg/dL (0.2-1.3); Uric Acid 8.2 mg/dL (3.5-8.5)
== END | disposition home or self-care (01) ==
LOC: LABWHC1 11:03
PROVIDERS: ATTEND Internal Medicine
DX: N18.4 Chronic kidney disease, stage 4 (severe) (principal); E21.3 Hyperparathyroidism, unspecified; E55.9 Vitamin D deficiency, unspecified; M10.9 Gout, unspecified
CPT/HCPCS: 36415; 80053; 82306; 83735; 83970; 84100; 84550

== ENCOUNTER → 2017-07-20 | Outpatient (CLI) | payer MEDICARE ==
[2017-07-20 14:43] LABS: Calcium 8.6 mg/dL (8.4-10.2); Magnesium 2.2 mg/dL (1.6-2.3); Phosphorus 3.7 mg/dL (2.5-4.5); Potassium 4.4 mmol/L (3.5-5.1); Total Bilirubin 0.3 mg/dL (0.2-1.3); Total Protein 6.5 g/dL (6.3-8.2); Uric Acid 4.8 mg/dL (3.5-8.5)
== END ==
LOC: LABWHC1 13:39
PROVIDERS: ATTEND Nurse Practitioner Family
DX: E55.9 Vitamin D deficiency, unspecified (principal); M10.9 Gout, unspecified; E21.3 Hyperparathyroidism, unspecified; N18.4 Chronic kidney disease, stage 4 (severe)
CPT/HCPCS: 36415; 80053; 82306; 83735; 83970; 84100; 84550

== ENCOUNTER → 2017-08-03 | Outpatient (CLI) | payer MEDICARE ==
--- NOTE | 2017-08-03 13:43 | XR ---
EXAMINATION TYPE: XR chest 2V DATE OF EXAM: 08/03/2017 COMPARISON: 05/05/2017 INDICATION: Acute bronchitis TECHNIQUE: Frontal and lateral views of the chest are obtained. FINDINGS: The heart size is normal. The pulmonary vasculature is normal. The lungs are clear. IMPRESSION: 1. No acute pulmonary process.
== END | disposition home or self-care (01) ==
LOC: RADXRMAIN 13:23
PROVIDERS: ATTEND Family Medicine
DX: J20.9 Acute bronchitis, unspecified (principal)
CPT/HCPCS: 71020

== ENCOUNTER 2017-08-28 16:47 | Emergency (ER) | payer MEDICARE ==
[2017-08-28 17:07] VITALS: RESP 18
[2017-08-28] MEDS ORDERED: ONDANSETRON 4 MG/2 ML VIAL IVP STA (17:21)
[2017-08-28] MEDS ORDERED: HYDROmorphone 1 MG/ML 1 ML SYRINGE IVP STA (17:24)
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
[2017-08-28 18:23] LABS: Basophils # (A) 0.1 k/uL (0-0.2); Basophils % (A) 1 %; CH 33.6; CHCM 32.5; Eosinophils # (A) 0.4 k/uL (0-0.7); Eosinophils % (A) 5 %; HCT 36.1 % (39.0-53.0); HDW 2.77; HGB 11.7 gm/dL (13.0-17.5); Luc # (Auto) 0.05; Luc % (Auto) 1; Lymphocytes % (A) 14 %; MCH 33.7 pg (25.0-35.0); MCHC 32.4 g/dL (31.0-37.0); MCV 104.1 fL (80.0-100.0); Macrocytosis Slight; Monocytes # (A) 0.3 k/uL (0-1.0); Monocytes % (A) 5 %; Neutrophils # (A) 5.3 k/uL (1.3-7.7); Neutrophils % (A) 75 %; RBC 3.47 m/uL (4.30-5.90); RDW 14.3 % (11.5-15.5); WBC 7.1 k/uL (3.8-10.6); WBC (Perox) 7.43
[2017-08-28 18:26] LABS: Appearance,Urine Clear (Clear); Bilirubin,Urine 3+ (Negative); Glucose,Urine (UA) Negative (Negative); Ketones,Urine Negative (Negative); Leukocyte Esterase,Urine Negative (Negative); Nitrite,Urine Negative (Negative); Protein,Urine Trace (Negative); Specific Gravity,Urine 1.018 (1.001-1.035); UA Billing (MACRO vs. MICRO) CHEM; Urobilinogen,Urine <2.0 mg/dL (<2.0)
[2017-08-28 18:34] LABS: Potassium 4.3 mmol/L (3.5-5.1); Total Bilirubin 0.4 mg/dL (0.2-1.3); Total Protein 6.9 g/dL (6.3-8.2)
--- NOTE | 2017-08-28 18:46 | XR ---
EXAMINATION TYPE: 3 views thoracic spine. 3 views lumbar spine. DATE OF EXAM: 08/28/2017 COMPARISON: NONE HISTORY: 77-year-old male with chronic back pain FINDINGS: Thoracic spine: 12 rib-bearing thoracic vertebral bodies. All pedicles are visualized. Gentle S-shaped angulation of the thoracolumbar spine. Moderate endplate spondylosis lower thoracic spine and thoracolumbar junctio n. Vertebral body heights are preserved. Cervical spondylosis is noted. Alignment appears maintained. Lumbar spine: Degenerated levoconvex curvature with 5 lumbar type vertebral bodies. Bulky left lateral endplate spo ndylosis. Severe disc/endplate degenerative change with multiple levels of significant disc interspac e narrowing and vacuum phenomenon with endplate sclerosis and spondylosis. Vertebral body heights are preserved and alignment is maintained. Hypertrophic facet arthropathy throughout. IMPRESSION: 1. Mild degenerated S-shaped curvature of the thoracolumbar spine. 2. No vertebral compression collapse or malalignment seen. 3. Moderate spondylotic change lower thoracic spine and thoracolumbar junction. 4. Moderate to severe disc/endplate degenerative change throughout the lumbar spine as well as hypert rophic facet arthropathy.
[2017-08-28 19:02] LABS: INR 1.1 (<1.2); Prothrombin Time 10.3 sec (9.0-12.0)
--- NOTE | 2017-08-28 20:26 | US ---
EXAMINATION TYPE: US abdomen limited DATE OF EXAM: 08/28/2017 COMPARISON: NONE CLINICAL HISTORY: 77-year-old male with back pain and abdominal pain with diarrhea . TECHNIQUE: Multiple sonographic images of the right upper quadrant are obtained. FINDINGS: CHANNELER OUTSOLE NOTES: Limited due to patient's ability to hold breath and bowel gas from patient eating four hours ago. Liver Length: 15.4 cm Gallbladder Wall: 0.3 cm CBD: 0.3 cm Right Kidney: 9.2 x 4.3 x 4.7 cm Pancreas: Obscured by bowel gas Liver: Only portions are visualized. The visualized portions show no gross abnormality. Gallbladder: No abnormal gallbladder distention, wall thickening, pericholecystic fluid, or shadowin g calculi. Evidence for sonographic Sal[place]'s sign: No CBD: Normal caliber. Right Kidney: Measures slightly small and appears increased echogenicity. Findings suggest underlyin g chronic medical renal disease. No hydronephrosis. IMPRESSION: 1. Exam limitations as mentioned above. There are limited views of the liver. The pancreas is obscure d. 2. No evidence for cholelithiasis, acute cholecystitis, or biliary ductal dilatation.
[2017-08-28 21:03] VITALS: BP 146/67; PULSE 67; TEMP 98
== END 2017-08-28 21:03 | disposition home or self-care (01) ==
LOC: EC 16:47
DX: K85.90 Acute pancreatitis without necrosis or infection, unspecified (principal); M47.815 Spondylosis without myelopathy or radiculopathy, thoracolumbar region; M46.96 Unspecified inflammatory spondylopathy, lumbar region; R74.8 Abnormal levels of other serum enzymes; R93.421 Abnormal radiologic findings on diagnostic imaging of right kidney; R19.7 Diarrhea, unspecified; E78.5 Hyperlipidemia, unspecified; I10 Essential (primary) hypertension; I25.10 Atherosclerotic heart disease of native coronary artery without angina pectoris; E11.9 Type 2 diabetes mellitus without complications; G25.81 Restless legs syndrome; G62.9 Polyneuropathy, unspecified; G89.29 Other chronic pain; N28.9 Disorder of kidney and ureter, unspecified; F32.9 Major depressive disorder, single episode, unspecified; F41.9 Anxiety disorder, unspecified; Z87.891 Personal history of nicotine dependence; Z79.1 Long term (current) use of non-steroidal anti-inflammatories (NSAID); Z79.82 Long term (current) use of aspirin; Z79.84 Long term (current) use of oral hypoglycemic drugs; Z79.899 Other long term (current) drug therapy; Z85.038 Personal history of other malignant neoplasm of large intestine; Z90.49 Acquired absence of other specified parts of digestive tract
CPT/HCPCS: 36415; 80053; 83690; 85025; 85610; 85730; 81003; 72072; 72100; 76705; 99284; 96374; 96375; J2405; J1170

== ENCOUNTER → 2017-09-19 | Outpatient (CLI) | payer MEDICARE ==
--- NOTE | 2017-09-19 12:51 | MR ---
EXAMINATION TYPE: MR lumbar spine wo con DATE OF EXAM: 09/19/2017 COMPARISON: Radiographs of the lumbar spine dated 08/28/2017 HISTORY: Radiculopathy, lumbar region. Chronic low back pain with no known injury. TECHNIQUE: Multiplanar, multisequence images of the lumbar spine were acquired. The lumbar spine maintains normal vertebral body heights and alignment. Bone marrow signal is within normal limits. Conus medullaris is unremarkable terminating at L1. Multilevel disc desiccation, inter vertebral disc space narrowing, anterior osteophytes, and facet arthropathy are noted. T12-L1: There is a broad-based disc bulge, left eccentric resulting in moderate left and mild right n eural foraminal narrowing. Facet arthropathy and ligamentum flavum buckling contribute to mild spinal canal stenosis at this level. L1-L2: There is a right eccentric broad-based disc bulge, facet arthropathy, and ligamentum flavum bu ckling that together create severe right neural foraminal narrowing, mild left neural foraminal narro wing, and moderate spinal canal stenosis with buckling of the nerve roots. L2-L3: There is near complete intervertebral disc height loss. Posterior disc osteophyte complexes pr otrude into the neural foramen bilaterally, right greater than left creating severe right neural fora katrin narrowing and moderate left neural foraminal narrowing. Facet arthropathy and ligamentum flavum buckling contribute to mild spinal canal stenosis and buckling of the nerve roots. L3-L4: There is a large right lateral disc herniation with a foraminal component resulting in severe right neural foraminal narrowing impinging upon the L3 nerve root. Mild left neural foraminal narrowi ng is seen. Extensive ligamentum flavum buckling and facet arthropathy are seen creating severe spina l canal stenosis at this level with buckling of the nerve roots. L4-L5: There is a right foraminal disc herniation superimposed upon a right eccentric broad-based dis c bulge. Facet arthropathy and ligamentum flavum buckling are also seen creating severe right neural foraminal narrowing and moderate left neural foraminal narrowing as well as severe spinal canal steno sis and buckling of the nerve roots. L5-S1: A broad-based disc bulge is seen in combination with facet arthropathy and ligamentum flavum b uckling creating mild spinal canal stenosis and mild bilateral neural foraminal narrowing. IMPRESSION: 1. Large right lateral disc herniation with a foraminal component at L3-L4 resulting in severe right neural foraminal narrowing impinging on the L3 nerve root. Ligamentum flavum buckling and facet arthr opathy contribute to severe spinal canal stenosis with buckling of the nerve roots at this level. 2. Right foraminal disc herniation superimposed on a broad-based disc bulge at L4-L5 creating severe right neural foraminal narrowing and moderate left neural foraminal narrowing is most severe spinal c anal stenosis and buckling of the nerve roots. 3. Multilevel degenerative disc disease creating variable degrees of neural foraminal stenosis as luz cribed above with mild spinal canal stenosis at T12-L1, moderate spinal canal stenosis at L1-L2, mild spinal canal stenosis at L2-L3, severe spinal canal stenosis at L3-L5, and mild spinal canal stenosi s at L5-S1.
== END | disposition home or self-care (01) ==
LOC: RADMRIMAIN 11:38
PROVIDERS: ATTEND Family Medicine
DX: M48.07 Spinal stenosis, lumbosacral region (principal); M48.04 Spinal stenosis, thoracic region; M99.73 Connective tissue and disc stenosis of intervertebral foramina of lumbar region; M51.15 Intervertebral disc disorders with radiculopathy, thoracolumbar region
CPT/HCPCS: 72148

== ENCOUNTER 2017-09-20 13:21 | Emergency (ER) | payer MEDICARE ==
[2017-09-20 14:01] VITALS: BP 107/58; PULSE 88; RESP 18; TEMP 98
[2017-09-20] MEDS ORDERED: KETOROLAC 30 MG/ML 1 ML VIAL IM STA (15:55)
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
== END 2017-09-20 16:39 | disposition home or self-care (01) ==
LOC: EC 13:21
DX: G89.29 Other chronic pain (principal); M54.5 Low back pain; I25.10 Atherosclerotic heart disease of native coronary artery without angina pectoris; E11.9 Type 2 diabetes mellitus without complications; E78.5 Hyperlipidemia, unspecified; I10 Essential (primary) hypertension; G25.81 Restless legs syndrome; F41.9 Anxiety disorder, unspecified; G62.9 Polyneuropathy, unspecified; F32.9 Major depressive disorder, single episode, unspecified; Z87.891 Personal history of nicotine dependence; Z85.038 Personal history of other malignant neoplasm of large intestine; Z79.52 Long term (current) use of systemic steroids; Z79.82 Long term (current) use of aspirin; Z79.84 Long term (current) use of oral hypoglycemic drugs; Z79.899 Other long term (current) drug therapy
CPT/HCPCS: 99283; 96372; J1885

== ENCOUNTER → 2017-10-22 | Outpatient (CLI) | payer MEDICARE ==
--- NOTE | 2017-10-22 14:37 | XR ---
EXAMINATION TYPE: XR chest 2V DATE OF EXAM: 10/22/2017 COMPARISON: 08/03/2017 HISTORY: Shortness of breath TECHNIQUE: Frontal and lateral views of the chest are obtained. FINDINGS: Scattered senescent parenchymal changes noted. Hyperinflation compatible with COPD. No evidence for infiltrate. No evidence for atelectasis. Heart size is stable. Mediastinal structures are stable and grossly unremarkable. No evidence for hilar prominence. Degenerative changes dorsal spine. IMPRESSION: 1. No evidence for acute pulmonary disease.
== END | disposition home or self-care (01) ==
LOC: RADXRMAIN 11:02
PROVIDERS: ATTEND Family Medicine
DX: J44.9 Chronic obstructive pulmonary disease, unspecified (principal)
CPT/HCPCS: 71046

== ENCOUNTER 2017-10-26 06:55 | Day surgery (SDC) | payer MEDICARE ==
[2017-10-24 10:08] VITALS: BMI 28.1
[2017-10-26 07:25] VITALS: TEMP 98
[2017-10-26 07:26] LABS: Glucose,Whole Blood 130 mg/dL (75-99)
[2017-10-26] MEDS ORDERED: PROPOFOL 10 MG/ML 20 ML VIAL IV ONE (07:41)
--- NOTE | 2017-10-26 07:59 | P.PCN ---
Date of Procedure: 10/26/17 Procedure(s) Performed: BRIEF HISTORY: Patient is a 77-year-old, pleasant, white male, scheduled for an upper endoscopy as a part of evaluation of intermittent dysphagia to solids for the last few months duration. He is hence scheduled for an upper endoscopy with a possible dilation. PROCEDURE PERFORMED: Esophagogastroduodenoscopy with biopsy. PREOPERATIVE DIAGNOSIS: Intermittent dysphagia to solids of 6 months duration. IV sedation per anesthesia. PROCEDURE: After informed consent was obtained, the patient was brought into the endoscopy unit. IV sedation was administered by Anesthesia under continuous monitoring. Initially the Olympus GIF-140 video endoscope was inserted into the mouth. Esophagus intubated without any difficulty. It was gradually advanced into the stomach and duodenum and carefully examined. The bulb and the second part of the duodenum appeared normal. The scope at this time was withdrawn to the stomach, adequately insufflated with air, and upon careful examination, mucosa of the antrum, had mild diffuse gastritis and biopsies were done from this area. The body, cardia and the fundus appeared normal. The scope was then withdrawn into the esophagus. The GE junction was located at 39 cm from the incisors. The esophagus appeared normal. There were no erosions or ulcerations seen and the patient tolerated the procedure well. IMPRESSION: 1. Mild antral gastritis. 2. Normal-appearing esophagus with no evidence of esophagitis or esophageal stricture. RECOMMENDATIONS: The findings of this examination were discussed with the patient as well as his family. He was advised to continue with Prilosec 20 mg daily and follow antireflux measures. He will be seen in office in 4-6 weeks.
[2017-10-26 08:14] VITALS: BP 162/77; PULSE 98; RESP 18
== END 2017-10-26 08:51 | disposition home or self-care (01) ==
LOC: ORWHC2ENDO 06:55
PROVIDERS: ATTEND Internal Medicine Gastroenterology
DX: K29.50 Unspecified chronic gastritis without bleeding (principal); I10 Essential (primary) hypertension; E78.5 Hyperlipidemia, unspecified; J44.9 Chronic obstructive pulmonary disease, unspecified; E11.9 Type 2 diabetes mellitus without complications; N19 Unspecified kidney failure; Z79.84 Long term (current) use of oral hypoglycemic drugs; Z79.891 Long term (current) use of opiate analgesic; Z79.899 Other long term (current) drug therapy
CPT/HCPCS: 88305; 43239; J2704

== ENCOUNTER 2017-11-18 10:39 | Emergency (ER) | payer MEDICARE ==
[2017-11-18 11:00] VITALS: BP 115/52; PULSE 61; RESP 18; TEMP 97.6
[2017-11-18] MEDS ORDERED: KETOROLAC 60 MG/2 ML VIAL IM STA (12:41)
[2017-11-18] MEDS ORDERED: ORPHENADRINE 30 MG/ML 2 ML VIAL IM STA (12:41)
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
== END 2017-11-18 13:14 | disposition home or self-care (01) ==
LOC: EC 10:39
DX: M54.9 Dorsalgia, unspecified (principal); M79.604 Pain in right leg; M79.605 Pain in left leg; R05 Cough; I25.10 Atherosclerotic heart disease of native coronary artery without angina pectoris; J44.9 Chronic obstructive pulmonary disease, unspecified; E78.5 Hyperlipidemia, unspecified; I10 Essential (primary) hypertension; G25.81 Restless legs syndrome; E11.40 Type 2 diabetes mellitus with diabetic neuropathy, unspecified; G20 Parkinson's disease; F32.9 Major depressive disorder, single episode, unspecified; F41.9 Anxiety disorder, unspecified; Z85.038 Personal history of other malignant neoplasm of large intestine; Z87.891 Personal history of nicotine dependence; Z79.84 Long term (current) use of oral hypoglycemic drugs; Z79.82 Long term (current) use of aspirin; Z79.899 Other long term (current) drug therapy
CPT/HCPCS: 99283; 96372 ×2; J2360; J1885

== ENCOUNTER 2017-11-23 22:32 | Emergency (ER) | payer MEDICARE ==
[2017-11-23 22:39] VITALS: PULSE 64; TEMP 99.8
[2017-11-23 22:46] LABS: Glucose,Whole Blood 185 mg/dL (75-99)
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
[2017-11-23 23:26] LABS: Basophils # (A) 0.1 k/uL (0-0.2); Basophils % (A) 1 %; Eosinophils # (A) 1.1 k/uL (0-0.7); Eosinophils % (A) 12 %; HCT 31.9 % (39.0-53.0); HGB 10.9 gm/dL (13.0-17.5); Lymphocytes # (A) 1.4 k/uL (1.0-4.8); Lymphocytes % (A) 16 %; MCH 34.5 pg (25.0-35.0); MCHC 34.3 g/dL (31.0-37.0); MCV 100.6 fL (80.0-100.0); Mean Platelet Volume 8.1; Monocytes # (A) 0.6 k/uL (0-1.0); Monocytes % (A) 6 %; Neutrophils # (A) 5.8 k/uL (1.3-7.7); Neutrophils % (A) 64 %; Platelet Count 348 k/uL (150-450); RBC 3.17 m/uL (4.30-5.90); RDW 13.3 % (11.5-15.5); VBG PH 7.33 (7.31-7.41); WBC 9.1 k/uL (3.8-10.6)
[2017-11-23 23:35] LABS: Albumin 3.9 g/dL (3.5-5.0); Calcium 8.7 mg/dL (8.4-10.2); Potassium 4.9 mmol/L (3.5-5.1); Total Bilirubin 0.2 mg/dL (0.2-1.3); Total Protein 6.5 g/dL (6.3-8.2)
[2017-11-24 00:05] VITALS: BP 158/70; RESP 16
== END 2017-11-24 00:18 | disposition home or self-care (01) ==
LOC: EC 22:32
DX: E11.65 Type 2 diabetes mellitus with hyperglycemia (principal); E11.22 Type 2 diabetes mellitus with diabetic chronic kidney disease; I25.10 Atherosclerotic heart disease of native coronary artery without angina pectoris; J44.9 Chronic obstructive pulmonary disease, unspecified; E78.5 Hyperlipidemia, unspecified; I12.9 Hypertensive chronic kidney disease with stage 1 through stage 4 chronic kidney disease, or unspecified chronic kidney disease; N18.6 End stage renal disease; G62.9 Polyneuropathy, unspecified; F41.9 Anxiety disorder, unspecified; G25.81 Restless legs syndrome; F32.9 Major depressive disorder, single episode, unspecified; Z87.891 Personal history of nicotine dependence; Z85.038 Personal history of other malignant neoplasm of large intestine; Z79.82 Long term (current) use of aspirin; Z79.84 Long term (current) use of oral hypoglycemic drugs; Z79.899 Other long term (current) drug therapy
CPT/HCPCS: 36415; 80053; 82803; 85025; 99284

== ENCOUNTER → 2017-11-29 | Outpatient (CLI) | payer MEDICARE ==
--- NOTE | 2017-11-29 16:06 | CT ---
EXAMINATION TYPE: CT chest wo con DATE OF EXAM: 11/29/2017 COMPARISON: Prior CTA chest abdomen and pelvis September 26, 2012. HISTORY: Dyspnea upon exertion CT DLP: 354.1 mGycm. Automated Exposure Control for Dose Reduction was Utilized. TECHNIQUE: CT scan of the thorax is performed without IV contrast. High resolution protocol with 1 m m sequences obtained at 10 mm intervals in supine technique. Patient could not perform prone sequence evaluation due to recent back surgery. FINDINGS: LUNGS: There are some bibasilar linear scarring and/or atelectasis. There is no suspicious peripheral reticulation or distortion otherwise identified. No significant focal consolidation is seen. There i s mild central cylindrical bronchiectasis seen best near axial image 16 new from prior. No large pare nchymal mass is present. No pleural effusion or pneumothorax is seen. MEDIASTINUM: Lack of IV contrast is noted to limit evaluation for mediastinal and especially hilar ad enopathy. There are no definitive greater than 1 cm hilar or mediastinal lymph nodes. No cardiomega ly or pericardial effusion is seen. There is severe three-vessel coronary artery calcification. OTHER: There is prominent multilevel spurring in the spine. IMPRESSION: New bibasilar linear scarring and/or atelectasis. New central mild bronchiectasis. No fernando picious peripheral fibrosis otherwise noted bilaterally.
== END | disposition home or self-care (01) ==
LOC: RADCTMAIN 15:37
PROVIDERS: ATTEND Internal Medicine Critical Care Medicine
DX: J47.9 Bronchiectasis, uncomplicated (principal); E11.9 Type 2 diabetes mellitus without complications
CPT/HCPCS: 71250

== ENCOUNTER → 2018-01-09 | Outpatient (CLI) | payer MEDICARE ==
[2018-01-09 12:02] LABS: HGB 11.1 gm/dL (13.0-17.5); MCH 33.2 pg (25.0-35.0); MCHC 32.7 g/dL (31.0-37.0); MCV 101.6 fL (80.0-100.0); Macrocytosis Slight; Mean Platelet Volume 9.6; Platelet Count 187 k/uL (150-450); RBC 3.35 m/uL (4.30-5.90); RDW 13.1 % (11.5-15.5)
[2018-01-09 12:04] LABS: Albumin 3.8 g/dL (3.5-5.0); Calcium 8.6 mg/dL (8.4-10.2); Magnesium 2.3 mg/dL (1.6-2.3); Phosphorus 4.2 mg/dL (2.5-4.5); Potassium 4.2 mmol/L (3.5-5.1); Total Bilirubin 0.4 mg/dL (0.2-1.3); Total Protein 6.3 g/dL (6.3-8.2); Uric Acid 6.9 mg/dL (3.5-8.5)
[2018-01-09 17:47] LABS: Parathyroid Hormone Intact 127.6 pg/mL (14.0-72.0)
[2018-01-09 17:48] LABS: Iron Saturation 13.29 (15.00-50.00)
[2018-01-09 17:56] LABS: Vitamin D 25 Hydroxy 22.1 ng/mL (30.0-100.0)
== END | disposition home or self-care (01) ==
LOC: LABWHC1 11:21
PROVIDERS: ATTEND Nurse Practitioner Family
DX: N39.0 Urinary tract infection, site not specified (principal); E83.39 Other disorders of phosphorus metabolism; M10.9 Gout, unspecified; N18.3 Chronic kidney disease, stage 3 (moderate); N25.81 Secondary hyperparathyroidism of renal origin; D63.1 Anemia in chronic kidney disease
CPT/HCPCS: 36415; 80053; 82306; 82728; 83540; 83550; 83735; 83970; 84100; 84550; 85027

== ENCOUNTER → 2018-02-11 | Outpatient (CLI) | payer MEDICARE ==
[2018-02-11 12:07] LABS: MCH 33.8 pg (25.0-35.0); MCHC 33.3 g/dL (31.0-37.0); MCV 101.5 fL (80.0-100.0); Macrocytosis Slight; Mean Platelet Volume 9.9; Platelet Count 165 k/uL (150-450); RBC 3.84 m/uL (4.30-5.90); RDW 13.7 % (11.5-15.5)
[2018-02-11 12:12] LABS: Appearance,Urine Clear (Clear); Bilirubin,Urine Negative (Negative); Blood,Urine Negative (Negative); Color,Urine Light Yellow; Glucose,Urine (UA) Negative (Negative); Ketones,Urine Negative (Negative); Leukocyte Esterase,Urine Negative (Negative); Nitrite,Urine Negative (Negative); Protein,Urine Negative (Negative); Urobilinogen,Urine <2.0 mg/dL (<2.0)
[2018-02-11 12:17] LABS: INR 1.1 (<1.2); Partial Thromboplastin Time 31.2 sec (22.0-30.0); Prothrombin Time 10.3 sec (9.0-12.0)
[2018-02-11 12:18] LABS: Albumin 4.3 g/dL (3.5-5.0); Calcium 9.1 mg/dL (8.4-10.2); Total Bilirubin 0.5 mg/dL (0.2-1.3); Total Protein 7.1 g/dL (6.3-8.2)
[2018-02-11 12:21] LABS: Potassium 4.7 mmol/L (3.5-5.1)
== END | disposition home or self-care (01) ==
LOC: LABWHC1 11:34
PROVIDERS: ATTEND Orthopaedic Surgery Sports Medicine
DX: Z01.812 Encounter for preprocedural laboratory examination (principal); Z79.01 Long term (current) use of anticoagulants
CPT/HCPCS: 36415; 80053; 81003; 85027; 85610; 85730; 87070

== ENCOUNTER 2018-02-22 06:54 | Day surgery (SDC) | payer MEDICARE ==
[2018-02-17 15:43] VITALS: BMI 28.1
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
[~2018-02-22 06:54] MED LIST changes: +LIDOCAINE 1% 20 ML VIAL (10MG/ML) FOR IV START INTRADERMA PRN; +MIDAZOLAM 2 MG/2 ML VIAL IV PRN
[2018-02-22 07:36] LABS: Glucose,Whole Blood 152 mg/dL (75-99)
[2018-02-22 08:02] VITALS: RESP 16; TEMP 98.1
[2018-02-22] MEDS ORDERED: PROPOFOL 10 MG/ML 20 ML VIAL IV ONE (08:57)
--- NOTE | 2018-02-22 09:31 | P.PCN ---
Date of Procedure: 02/22/18 Description of Procedure: PREOPERATIVE DIAGNOSIS: History of colon cancer Status post right hemicolectomy POSTOPERATIVE DIAGNOSIS: History of colon cancer Status post right hemicolectomy Multiple tubular adenomas throughout the colon. External hemorrhoids, grade 2. Poor colonic prep Severe sigmoid diverticulosis OPERATION: Colonoscopy to the ileocolic anastomosis Colonoscopy with multiple hot snare polypectomy Colonoscopy with multiple cold forceps biopsies. SURGEON: Santa Jorge MD. ANESTHESIA: MAC. INDICATIONS: The patient is a 77-year-old male with history of colon cancer. He presents for surveillance. Benefits and risks were described and informed consent was obtained. DESCRIPTION OF PROCEDURE: The patient had undergone Gatorade, MiraLAX and Dulcolax prep. He had been brought into the operating room and laid in the left lateral decubitus position. After adequate intravenous sedation, the rectum was examined with 2% lidocaine jelly. Prostatic fossa was without abnormality. No external hemorrhoids were encountered. The rectal tone was within normal limits. No lesions were palpated in the rectal vault. An Olympus colonoscope was advanced until the ileocecal anastomosis was viewed. The prep was poor with semisolid stool throughout the sigmoid colon. The scope was slowly withdrawn. Severe scattered diverticulosis was encountered. Multiple colonic polyps were found and cold forcep biopsy or snare polypectomy. No evidence of focal colitis was found. Retroflexion of the scope demonstrated grade 2 internal hemorrhoids without active bleeding or inflammation. The colon was desufflated. The patient had tolerated the procedure well. Withdrawal time was over 6 minutes. FINDINGS: Internal hemorrhoids, grade 2 No external hemorrhoids No arteriovenous malformations. Severe sigmoid diverticulosis. Ileocolic anastomosis without stricture. Removal of 5 polyps from the colon: - Snare polypectomy 10 cm from the anal verge, 8 mm tubulovillous adenoma polyp , rectum - Snare polypectomy 70 cm from the anal verge, 5 mm flat villous adenoma polyp, proximal transverse colon - Snare polypectomy 40 cm from the anal verge, 4 mm flat villous adenoma polyp, descending colon - Cold forceps biopsy at 41 cm from the anal verge, 4 mm polyp, descending, - Cold forceps biopsy at distal transverse colon, 4 mm polyp. No focal colitis. RECOMMENDATIONS: Given severity of tubular adenomas, recommend repeat colonoscopy 1 year, 2019. Plan - Discharge Summary New Discharge Prescriptions: No Action Oxybutynin Chloride [Ditropan] 5 mg PO TID Isosorbide Mononitrate [Imdur] 30 mg PO DAILY Atorvastatin Calcium [Lipitor] 40 mg PO DAILY Sertraline [Zoloft] 100 mg PO BID QUEtiapine [SEROquel] 50 mg PO DAILY Nitroglycerin Sl Tabs [Nitrostat] 0.4 mg SUBLINGUAL Q5M PRN PRN Reason: Chest Pain Cilostazol [Pletal] 50 mg PO DAILY rOPINIRole HCL [Requip] 0.5 mg PO HS sitaGLIPtin [Januvia] 25 mg PO BID Gabapentin 800 mg PO BID Omeprazole [PriLOSEC] 40 mg PO AC-BRKFST #14 capsule. Multivitamins, Thera [Multivitamin (formulary)] 1 tab PO DAILY Furosemide [Lasix] 40 mg PO DAILY Ferrous Sulfate [Iron (65 MG Elemental)] 325 mg PO DAILY Atenolol [Tenormin] 50 mg PO DAILY Lisinopril [Zestril] 5 mg PO DAILY Ergocalciferol (Vitamin D2) [Vitamin D2] 50,000 unit PO Q14D Albuterol Inhaler [Ventolin Hfa Inhaler] 2 puff INHALATION RT-Q6H PRN PRN Reason: Shortness Of Breath Albuterol Nebulized [Ventolin Nebulized] 2.5 mg INHALATION RT-TID Calcitriol 0.25 mcg PO MOFR Primidone [Mysoline] 150 mg PO BID Sodium Bicarb 0.5 tab PO TID ALPRAZolam 1 mg PO DAILY #30 tablet oxyCODONE-APAP 5-325MG [Percocet 5-325 mg] 1 tab PO Q12H PRN PRN Reason: Severe Pain Discharge Medication List Atorvastatin Calcium [Lipitor] 40 mg PO DAILY 01/28/14 [History] Isosorbide Mononitrate [Imdur] 30 mg PO DAILY 01/28/14 [History] Oxybutynin Chloride [Ditropan] 5 mg PO TID 01/28/14 [History] Sertraline [Zoloft] 100 mg PO BID 02/18/16 [History] Cilostazol [Pletal] 50 mg PO DAILY 08/09/16 [History] Nitroglycerin Sl Tabs [Nitrostat] 0.4 mg SUBLINGUAL Q5M PRN 11/28/16 [History] QUEtiapine [SEROquel] 50 mg PO DAILY 08/09/16 [History] rOPINIRole HCL [Requip] 0.5 mg PO HS 08/20/16 [History] Gabapentin 800 mg PO BID 10/23/16 [History] sitaGLIPtin [Januvia] 25 mg PO BID 10/23/16 [History] Omeprazole [PriLOSEC] 40 mg PO REECE #14 capsule. 10/24/16 [Rx] Atenolol [Tenormin] 50 mg PO DAILY 01/21/17 [History] Ferrous Sulfate [Iron (65 MG Elemental)] 325 mg PO DAILY 01/21/17 [History] Furosemide [Lasix] 40 mg PO DAILY 01/21/17 [History] Lisinopril [Zestril] 5 mg PO DAILY 01/21/17 [History] Multivitamins, Thera [Multivitamin (formulary)] 1 tab PO DAILY 01/21/17 [History ] Ergocalciferol (Vitamin D2) [Vitamin D2] 50,000 unit PO Q14D 04/08/17 [History] Albuterol Inhaler [Ventolin Hfa Inhaler] 2 puff INHALATION RT-Q6H PRN 10/27/17 [ History] Albuterol Nebulized [Ventolin Nebulized] 2.5 mg INHALATION RT-TID 10/27/17 [ History] Calcitriol 0.25 mcg PO MOFR 10/27/17 [History] Primidone [Mysoline] 150 mg PO BID 10/27/17 [History] Sodium Bicarb 0.5 tab PO TID 10/27/17 [History] ALPRAZolam 1 mg PO DAILY #30 tablet 11/07/17 [Rx] oxyCODONE-APAP 5-325MG [Percocet 5-325 mg] 1 tab PO Q12H PRN 11/23/17 [History]
[2018-02-22 10:00] VITALS: BP 146/82; PULSE 64
[2018-02-22 10:10] LABS: Glucose,Whole Blood 167 mg/dL (75-99)
== END 2018-02-22 10:05 | disposition home or self-care (01) ==
LOC: ORWHC2ENDO 06:54
PROVIDERS: ATTEND Surgery Plastic and Reconstructive Surgery
DX: Z12.11 Encounter for screening for malignant neoplasm of colon (principal); D12.8 Benign neoplasm of rectum; K63.5 Polyp of colon; N28.9 Disorder of kidney and ureter, unspecified; K21.9 Gastro-esophageal reflux disease without esophagitis; G47.33 Obstructive sleep apnea (adult) (pediatric); I25.10 Atherosclerotic heart disease of native coronary artery without angina pectoris; J44.9 Chronic obstructive pulmonary disease, unspecified; E11.9 Type 2 diabetes mellitus without complications; E78.5 Hyperlipidemia, unspecified; I10 Essential (primary) hypertension; G25.81 Restless legs syndrome; G89.29 Other chronic pain; K64.4 Residual hemorrhoidal skin tags; K57.30 Diverticulosis of large intestine without perforation or abscess without bleeding; K64.8 Other hemorrhoids; D12.3 Benign neoplasm of transverse colon; F32.9 Major depressive disorder, single episode, unspecified; Z85.038 Personal history of other malignant neoplasm of large intestine; Z95.5 Presence of coronary angioplasty implant and graft; Z87.891 Personal history of nicotine dependence; Z82.49 Family history of ischemic heart disease and other diseases of the circulatory system; Z90.49 Acquired absence of other specified parts of digestive tract; Z79.899 Other long term (current) drug therapy; Z79.84 Long term (current) use of oral hypoglycemic drugs
CPT/HCPCS: 88305; 45385; 45380; J2704

== ENCOUNTER 2018-03-02 10:01 | Inpatient (IN) | payer MEDICARE ==
[2018-02-22 10:09] VITALS: BMI 28.1
[~2018-03-02 10:01] MED LIST changes: -LACTATED RINGERS 1,000 ML IV SCH; -LIDOCAINE 1% 20 ML VIAL (10MG/ML) FOR IV START INTRADERMA PRN; -MIDAZOLAM 2 MG/2 ML VIAL IV PRN; +ROPIVACAINE 246.25 MG, EPINEPHrine 0.5 MG, KETOROLAC 30 MG, cloNIDine HCL/PF 80 MCG, WA... MISCELLANE ONE
[2018-03-02] MEDS ORDERED: LACTATED RINGERS 1,000 ML IV ONE ×2 (12:48→15:10)
[2018-03-02] MEDS ORDERED: LIDOCAINE 1% 20 ML VIAL (10MG/ML) FOR IV START INTRADERMA ONE (12:49)
[2018-03-02] MEDS ORDERED: INSULIN ASPART 100 UNIT/ML 1 ML 10 ML VIAL SQ ONE (12:51)
[2018-03-02 13:13] LABS: Glucose,Whole Blood 236 mg/dL (75-99)
[2018-03-02] MEDS ORDERED: ONDANSETRON 4 MG/2 ML VIAL ONE (13:19)
[2018-03-02] MEDS ORDERED: SUCCINYLCHOLINE CHLORIDE 100 MG/5 ML SYR IV ONE (13:24)
[2018-03-02] MEDS ORDERED: PROPOFOL 10 MG/ML 20 ML VIAL IV ONE (13:24)
[2018-03-02] MEDS ORDERED: MIDAZOLAM 2 MG/2 ML VIAL ONE (13:24)
[2018-03-02] MEDS ORDERED: NEOSTIGMINE 1 MG/ML 10 ML VIAL ONE (13:24)
[2018-03-02] MEDS ORDERED: GLYCOPYRROLATE 0.2 MG/ML 2 ML VIAL ONE (13:24)
[2018-03-02] MEDS ORDERED: fentaNYL (PF) 50 MCG/ML 2 ML AMP ONE (13:24)
[2018-03-02] MEDS ORDERED: HYDROmorphone (PF) 1 MG/ML ONE (13:24)
[2018-03-02] MEDS ORDERED: ePHEDrine SULFATE/0.9% NACL/PF 50 MG/5 ML SYRINGE IV ONE (13:24)
[2018-03-02] MEDS ORDERED: ROCURONIUM BROMIDE 10 MG/ML 10 ML VIAL IV ONE (13:24)
[2018-03-02] MEDS ORDERED: SODIUM CHLORIDE 0.9% 100 ML BAG ONE (13:24)
[2018-03-02] MEDS ORDERED: LIDOCAINE 1% INJ 10MG/ML (20 ML MDV) ONE (13:24)
[2018-03-02] MEDS ORDERED: TRANEXAMIC ACID 1,000 MG/10 ML VIAL ONE (13:24)
[2018-03-02] MEDS ORDERED: LABETALOL 5 MG/ML VIAL MDV ONE (13:24)
[2018-03-02] MEDS ORDERED: BISACODYL 10 MG SUPP RECTAL PRN (13:39)
[2018-03-02] MEDS ORDERED: MAGNESIUM HYDROXIDE 2,400 MG/10 ML CUP PO PRN (13:39)
[2018-03-02] MEDS ORDERED: HYDROmorphone 0.5 MG/0.5 ML SYRINGE IVP PRN ×3 (13:39)
[2018-03-02] MEDS ORDERED: NALOXONE 0.4 MG/ML 1 ML VIAL IV PRN (13:39)
[2018-03-02] MEDS ORDERED: traMADol 50 MG TAB PO PRN (13:39)
[2018-03-02] MEDS ORDERED: DIAZEPAM 5 MG TAB PO PRN (13:39)
[2018-03-02] MEDS ORDERED: NA PHOS,M-B/NA PHOS,DI-BA 133 ML ENEMA RECTAL PRN (13:39)
[2018-03-02] MEDS ORDERED: ONDANSETRON 4 MG/2 ML VIAL IVP PRN (13:39)
[2018-03-02] MEDS ORDERED: ACETAMINOPHEN TAB 325 MG TAB PO PRN (13:39)
[2018-03-02] MEDS ORDERED: hydrOXYzine PAMOATE 25 MG CAP PO PRN (13:39)
[2018-03-02] MEDS ORDERED: TEMAZEPAM 15 MG CAP PO PRN (13:39)
[2018-03-02] MEDS ORDERED: oxyCODONE-APAP 5-325MG 1 EACH TAB PO PRN (13:42)
[2018-03-02] MEDS ORDERED: ceFAZolin 3,000 MG in SODIUM CHLORIDE 0.9% IRRIGATIO 3,000 ML IRRIGATION ONE (13:55)
[2018-03-02] MEDS: HYDROmorphone 1 MG/ML 1 ML SYRINGE IVP ONE ×2 (15:32→15:36)
--- NOTE | 2018-03-02 15:39 | XR ---
EXAMINATION TYPE: XR knee limited RT DATE OF EXAM: 03/02/2018 CLINICAL HISTORY: Right knee pain and arthritis status post total knee replacement. TECHNIQUE: Portable AP and crosstable lateral views of the right knee are obtained immediately posto peratively. COMPARISON: None FINDINGS: Metallic hardware from total right knee arthroplasty is seen and appears satisfactory in a lignment and position. There is evidence of recent surgery with diffuse subcutaneous gas and soft ti ssue swelling noted. IMPRESSION: METALLIC HARDWARE FROM TOTAL RIGHT KNEE ARTHROPLASTY IS SATISFACTORY IN ALIGNMENT.
[2018-03-02 15:46] LABS: Glucose,Whole Blood 187 mg/dL (75-99)
--- NOTE | 2018-03-02 16:19 | OP ---
OPERATIVE REPORT DATE OF PROCEDURE: 03/02/2018 SURGEON: Heber Salinas MD. RAIL SPLITTER: ANDRESSA Acevedo. PREOPERATIVE DIAGNOSIS: Right knee osteoarthrosis. POSTOPERATIVE DIAGNOSIS: Right knee osteoarthrosis. OPERATION: Right total knee arthroplasty. ANESTHESIA: General endotracheal. ESTIMATED BLOOD LOSS: 100 mL. TOURNIQUET TIME: 52 minutes at 250 mmHg. COMPLICATIONS: None apparent. DRAINS: None. DISPOSITION: Postanesthesia care unit. INDICATIONS: Mr. Duncan is a very pleasant 77-year-old male with longstanding history of right knee pain. History and physical examination are consist with advanced right knee osteoarthrosis. He has been through a very significant course of nonoperative management up to this point. Further treatment options were discussed and he has decided to go forward with a right total knee arthroplasty. The risks of procedure were discussed with him in detail. These risks include, but are not limited to risk of infection, nerve damage, bleeding, pain and risk of deep vein thrombosis which could lead to fatal pulmonary embolism. There is also risk of loosening of the implant which could require revision operation. The patient understands these risks. All of his questions were answered to his satisfaction. An appropriate informed consent was obtained. The patient identified in the preoperative holding area. Surgical sites marked by both the patient and myself. He was given 2 g of Ancef IV for prophylactic purposes. He is then transferred for to the operative suite, where he was placed supine on the operative table. A general anesthetic was then administered and dosed per the Anesthesia Department without apparent complication. Examination under anesthesia was then performed. The patient was 5-7 degrees shy of full extension. He had 100 degrees of flexion. The medial collateral ligament, lateral collateral ligament posterior cruciate ligaments were stable. Tourniquet was then placed high on the right upper thigh well-padded in preparation for surgery. The patient's right lower extremity was then prepped and draped in usual sterile fashion. Standard surgical pause undertaken to ensure that we were operating the correct site and that appropriate preoperative antibiotics were given. All staff in the room agreement and we proceeded. The outlines of the of the patella were marked surgical pen. A planned 12 cm vertical incision centered over the patella was marked surgical pen. The leg was then exsanguinated with an Esmarch dressing. The knee was then flexed and the tourniquet was inflated to 250 mmHg. The total tourniquet time for the procedure was 52 minutes. Incision was then made with a 10 blade scalpel. Dissection was carried down sharply overlying fascia. Great care was taken to minimize the skin flaps. The knee was then exposed using a standard medial parapatellar approach. A small cuff of quadriceps tendon was left for suturing. He was in quite a bit of varus preoperatively. A standard medial release was then made. Superficial medial collateral ligament was dissected off of the bone around the posterior aspect of the proximal tibia. The medial meniscus was then excised as well. The lateral meniscus was also released anteriorly. The leg was then externally rotated. The patella was everted and the knee was flexed. The retractors were then placed to protect the collateral ligaments. I then proceeded to remove the infrapatellar fat pad. This was excised sharply tangentially with with fibers of the patellar tendon. I then proceeded to remove peripheral osteophytes. This was done with a rongeur. I then proceeded with the distal femoral resection. He did have a flexion contracture. I planned to take an extra 2 mm resection off the distal femur. The femoral canal was then entered in the midline of the femur approximately 10 mm anterior to the origin of the posterior cruciate ligament. The gavin was then advanced down the center of the femur and placed intramedullary. Based on the preoperative radiographs, the angle between the anatomic and mechanical axis of the femur was approximately 4-5 degrees. The valgus angle of the distal femoral cutting guide was then set at 4 degrees for the right knee. This distal femoral cutting guide was then advanced over the intramedullary gavin. This was seated firmly against the femur. I then as mentioned planned to take 11 mm off the distal femur. The cutting block was then secured onto the femur with pins. The jig was removed. The distal femoral cut was made through the slot of the block. The pins then removed the distal femoral cut. The cutting block was removed. The accuracy of the distal femoral cuts was checked with 2 flat bars. I then proceed with femoral sizing. Posterior referencing sizing guide was held firmly against the resected distal surface of the femur. The posterior condyles were resting on the posterior plane of the guide. The sizing stylus was then placed on the anterior femur. The size was measured as a size 8. I then assessed for femoral rotation. The plan was for 3 degrees of external rotation. Three degrees of external rotation was placed onto the jig. These holes were then marked. I then confirmed the rotation by 3 separate methods. This was done using epicondylar axis as well as Whitesides line and posterior referencing. It was deemed that the external rotation was proper. I then went forward with placing the femoral cutting block. This was placed over the previously placed pin holes. The Chris wing was then placed onto the anterior slots to ensure that we would not notch the anterior femur with the anterior femoral cut. I then proceeded with the anterior femoral cut. This was flush with the anterior cortex of the femur. The posterior cuts were then made followed by the anterior chamfer cut, then the posterior chamfer cut. The cutting block was then removed. Throughout the resection, the collateral ligaments were protected with retractors. I then placed a trial size 8 femur. It fit very nice medial-lateral and fit flush with the distal end of the femur. The drill holes were then made. I then proceeded with the tibial cut. I planned for cruciate retaining knee. The guide was then placed and set for varus valgus and for slope. The height was set for approximate 2 mm resection from the medial tibial plateau which was the lower side. I was happy with the alignment amount of resection. The cutting block was then pinned to the proximal tibia. The alignment gavin was removed. The proximal tibial region was resected with a reciprocating saw. Again this was done with retractors protecting the collateral ligaments as well as the posterior cruciate ligament. I then proceed that proceeded to evaluate the flexion extension gaps. A 10 mm block was placed. The flexion-extension gaps were equal. I then proceed to resection of the fairly extensive posterior osteophytes. This was done using a curved osteotome. This resected the posterior osteophytes and posterior capsule stripping was also done off the posterior aspect of the femur at this time. The osteophytes were then removed. I then proceeded with resection of patella. The thickness of patella was measured using the caliper. The thickness was 24 mm. The thickness of the anticipated patellar dome was taken into account. The resection was then performed and confirmed to be equal in 4 quadrants using a caliper. Approximately 14 mm of bone remained after the resection. A 29 x 8 mm standard patellar trial was then placed. The holes were drilled. The trial was then placed. I then proceeded with sizing the tibial plate. A size E tibial plate fit very nicely. I then placed the trial femur the tibial tray and patellar button. A 10 mm trial tibial insert was also placed. This was then increased up to a 12 mm trial tibial insert. The components fit very nicely. He had full extension and flexion. The extension and flexion gaps were equal and stable to both varus and valgus stress. The patella tracked appropriately. Tibial tray rotation was marked with a Bovie. This was externally rotated properly. I then proceeded with tibial preparation. I first drilled the femoral holes removed femoral component. The tibial tray was then set for proper external rotation as well as mediolateral placement onto the tibia. It was then pinned into place. I then proceeded with punching the keel. I then decided to proceed with cementing of all of our components. The knee was thoroughly irrigated with sterile saline solution via pulse lavage. The lateral geniculate artery was identified and cauterized. All blood was removed from the bone of the tibia femur and patella with pulse lavage. I then proceed with cementing. Two packs of antibiotic bone cement were prepared on the back table by the certified surgical technologist. I then proceed with cementing the tibia first. The cement was impacted into the keel as well as deeply seated into the bone. A second coat of cement was then placed. The tibia was then impacted into place. Excess cement was removed with [place]'s and jokers. I then proceeded with cementing the femoral component. The femoral component was also cemented using standard technique. Excess cement was removed. A 12 mm trial insert was then placed into the knee. It was brought into full extension with a constant axial load placed until the cement had hardened. The patellar component was then cemented. This was held firmly with a compressive device until the cement had dried. When the cement had dried, the knee was taken out of extension. All excess cement was removed from around the prosthesis. I then trialed the knee with a 12 mm insert. The knee came into full extension. It was stable to both varus and valgus stress. The flexion-extension gaps were appropriate. I decided to go for the 12 mm cross-linked cruciate-retaining tibial insert. Polyethylene was then placed onto the tibial tray and locked. The knee was then reduced. The knee was again further irrigated with sterile saline solution with antibiotic added. The tourniquet was then deflated. The total tourniquet time for the procedure was 52 minutes at 250 mmHg. Final components were Yulia Persona size 8 cruciate-retaining femoral component, a size E tibial tray, a 12 mm medial congruent cruciate-retaining polyethylene insert, and a 29 x 8 mm patella. I then proceeded with closure. Again, the knee was thoroughly irrigated. The quadriceps tendon and the medial retinaculum were reapproximated with #2 Ethibond suture. The extensor mechanism was then closed with a running Quill suture. Subcutaneous tissues were then closed with 2-0 Vicryl interrupted suture. The skin was closed with a running 3-0 Quill suture. Dermabond was applied to the incision. Sterile compressive dressings were applied. All sponge and needle counts were deemed correct prior to closure. The patient tolerated the procedure without apparent complication. He was transferred recovery room in stable condition. MMODL / IJN: [id number] /
[2018-03-02 16:59] LABS: Glucose,Whole Blood 186 mg/dL (75-99)
[2018-03-02] MEDS ORDERED: NITROGLYCERIN SL TABS 0.4 MG TAB SUBLINGUAL PRN (17:25)
[2018-03-02] MEDS: LACTATED RINGERS 1,000 ML IV SCH (17:45)
[2018-03-02] MEDS ORDERED: WARFARIN 5 MG TAB PO ONE (18:00)
[2018-03-02] MEDS: INSULIN ASPART 100 UNIT/ML 1 ML 10 ML VIAL SQ SCH ×2 (18:20→21:35)
[2018-03-02] MEDS: ALBUTEROL NEBULIZED 2.5 MG/3 ML INHALATION SCH (19:43)
[2018-03-02 21:11] LABS: Glucose,Whole Blood 190 mg/dL (75-99)
[2018-03-02] MEDS: GABAPENTIN 400 MG CAP PO SCH (21:38)
[2018-03-02] MEDS: SERTRALINE 100 MG TAB PO SCH (21:38)
[2018-03-02] MEDS: PRIMIDONE 50 MG TAB PO SCH (21:38)
[2018-03-02] MEDS: SENNOSIDES-DOCUSATE SODIUM 1 EACH TAB PO SCH (21:39)
--- NOTE | 2018-03-02 22:30 | CONS ---
CONSULTATION DATE OF SERVICE: 03/02/2018. I am covering for Dr. Higginbotham. REASON FOR CONSULTATION: Medical management regarding CAD and COPD, requested by Orthopedic Surgery. HISTORY OF PRESENT ILLNESS: This 77-year-old gentleman with a past history of CAD, COPD, diabetes mellitus, hypertension, hyperlipidemia, history of renal disease, history of colon cancer, back surgery, being for Dr. Reilly Higginbotham in the outpatient setting, is admitted after right knee surgery. The patient has taken Coumadin previously. There is no history of any fevers or rigors. No headache, loss of consciousness, chest pain , palpitations, hematochezia or melena at this time. Minimal hoarseness is complained of by the patient. PAST MEDICAL HISTORY: CAD, COPD, diabetes type 2, hypertension, hyperlipidemia, history of colon cancer, back surgery. HOME MEDICATIONS: 1. Januvia 25 mg p.o. daily. 2. Requip 0.5 mg at bedtime. 3. Oxycodone 5 mg b.i.d. p.r.n. 4. Coumadin 7.5 mg and 2.5 mg. 5. Sodium bicarbonate 325 mg p.o. t.i.d. 6. Zoloft 100 mg p.o. b.i.d. 7. Seroquel 50 mg p.o. daily. 8. Mysoline 150 mg p.o. b.i.d. 9. Ditropan 5 mg p.o. t.i.d. 10.Prilosec 40 mg p.o. breakfast. 11.Nitrostat 0.4 mg p.r.n. 12.Multivitamins 1 p.o. daily. 13.Zestril 5 mg p.o. daily. 14.Imdur 30 mg. 15.Gabapentin 800 mg p.o. b.i.d. 16.Lasix 40 mg p.o. daily. 17.Vitamin D2, 50,000 p.o. 14 days. 18.Pletal 50 mg p.o. daily. 19.Calcitriol 0.25 mcg p.o. Tuesday and Tuesday. 20.Lipitor 40 mg p.o. daily. 21.Tenormin 50 mg p.o. 22.Ventolin 2.5 t.i.d. 23.Ventolin HFA 2 puffs every 6 hours p.r.n. 24.Alprazolam 1 mg p.o. daily. ALLERGIES: None. FAMILY HISTORY: History of cancer, hypertension, hyperlipidemia, brain cancer in the family. SOCIAL HISTORY: Previous history of smoking, no history of current smoking. No alcohol intake. REVIEW OF SYSTEMS: ENT: No diminished hearing. No diminished vision. CARDIOVASCULAR: As mentioned. RESPIRATORY: As mentioned. GI: No nausea or vomiting. : No dysuria or hematuria. NERVOUS SYSTEM: As mentioned. ALLERGIES: No history of asthma or hayfever. MUSCULOSKELETAL: As mentioned. HEMATOLOGY: As mentioned. ENDOCRINE: History of diabetes. CONSTITUTIONAL: As mentioned earlier. RHEUMATOLOGY: Negative. PSYCHIATRY: As mentioned earlier. PHYSICAL EXAMINATION: Alert oriented x2. Pulse is 90, blood pressure is 160/84, respirations 20, temp is normal. Pulse ox is 98% on room air. HEENT: conjunctivae normal. Oral mucosa moist NECK: No jugular venous distention. No lymph node enlargement. CARDIOVASCULAR SYSTEM: S1 and S2. No S3 or S4. RESPIRATORY: Breath sounds diminished in the bases. Few scattered rhonchi. No crackles. ABDOMEN: Soft, nontender. No masses. EXTREMITIES: Status post right knee arthroplasty. NERVOUS SYSTEM: Higher functions as mentioned earlier. Moves all 4 limbs. No focal motor or sensory deficit. LYMPHATICS: No masses felt in the neck, axillae or groin. SKIN: No ulcer, rash or bleeding. LABS: Accu-Cheks 236, 187, 186. ASSESSMENT: 1. Status post right total knee arthroplasty. 2. Diabetes type 2. 3. Coronary artery disease. 4. Chronic obstructive pulmonary disease. 5. Diabetes type 2. 6. Hypertension. 7. Hyperlipidemia. 8. History of renal disease. 9. History of syndrome. 10.History of colon cancer. 11.History of peripheral neuropathy. 12.History of Parkinson disease. 13.Chronic back pain. 14.History of degenerative joint disease. 15.History of gait dysfunction. 16.History of bowel resection. 17.Status post left glass eye. 18.Anxiety, depression. 19.Remote history of nicotine dependence. RECOMMENDATIONS AND DISCUSSION: This 77-year-old gentleman who presented with multiple complex medical issues. We will monitor the patient closely. Continue the current management and symptomatic treatment. Resume resuming the home medications. PT/OT evaluation. Monitor blood sugars closely. I would also recommend repeat labs in the morning and continue to monitor. We will follow the patient closely with you. The patient has follow up with Dr. Reilly Higginbotham closely after discharge. Thank you, Dr. Salnias, for letting us participate in this care of this patient. MMODL / IJN: [id number] / MTDD
[2018-03-02] MEDS ORDERED: IPRATROPIUM-ALBUTEROL 3 ML NEB INHALATION PRN (23:21)
--- NOTE | 2018-03-02 23:25 | XR ---
EXAMINATION TYPE: XR chest 1V DATE OF EXAM: 03/02/2018 COMPARISON: 11/23/2017 HISTORY: Short of breath TECHNIQUE: Single frontal view of the chest is obtained. FINDINGS: There is no heart failure nor confluent pneumonic infiltrate. Heart size is normal. Thorac ic aorta is atheromatous. There is no evidence of pleural effusion. IMPRESSION: No active cardiopulmonary disease. No change.
[2018-03-03] MEDS: ceFAZolin IN SWFI 2 GM/20 ML SYRINGE IVP SCH ×2 (00:21→07:28)
[2018-03-03] MEDS: SODIUM BICARBONATE TAB 650 MG TAB PO SCH ×4 (00:22→22:27)
[2018-03-03] MEDS: OXYBUTYNIN CHLORIDE 5 MG TAB PO SCH ×4 (00:23→22:27)
[2018-03-03] MEDS: LACTATED RINGERS 1,000 ML IV SCH ×2 (04:23→20:03)
[2018-03-03] MEDS ORDERED: ACETAMINOPHEN TAB 500 MG TAB PO ONE (06:00)
[2018-03-03] MEDS ORDERED: ceFAZolin IN SWFI 2 GM/20 ML SYRINGE IVP ONE (06:00)
[2018-03-03] MEDS ORDERED: TRANEXAMIC ACID 1,000 MG in SODIUM CHLORIDE 0.9% 50 ML IVPB ONE ×4 (06:00)
[2018-03-03] MEDS ORDERED: ONDANSETRON 4 MG/2 ML VIAL IVP ONE (06:00)
[2018-03-03 07:06] LABS: Glucose,Whole Blood 277 mg/dL (75-99)
[2018-03-03 07:40] LABS: Basophils % (A) 0 %; Eosinophils # (A) 0.2 k/uL (0-0.7); Eosinophils % (A) 2 %; HCT 34.4 % (39.0-53.0); HGB 11.6 gm/dL (13.0-17.5); Lymphocytes # (A) 0.8 k/uL (1.0-4.8); Lymphocytes % (A) 7 %; MCH 33.7 pg (25.0-35.0); MCHC 33.7 g/dL (31.0-37.0); Mean Platelet Volume 8.9; Monocytes # (A) 0.6 k/uL (0-1.0); Monocytes % (A) 6 %; Neutrophils # (A) 8.9 k/uL (1.3-7.7); Neutrophils % (A) 84 %; Platelet Count 153 k/uL (150-450); RBC 3.44 m/uL (4.30-5.90); RDW 13.8 % (11.5-15.5); WBC 10.6 k/uL (3.8-10.6)
[2018-03-03] MEDS: ALBUTEROL NEBULIZED 2.5 MG/3 ML INHALATION SCH ×3 (07:43→18:45)
[2018-03-03 07:44] LABS: INR 1.6 (<1.2); Prothrombin Time 15.1 sec (9.0-12.0)
[2018-03-03] MEDS: INSULIN ASPART 100 UNIT/ML 1 ML 10 ML VIAL SQ SCH ×4 (07:47→20:29)
[2018-03-03] MEDS: PANTOPRAZOLE 40 MG TABLET PO SCH (07:48)
[2018-03-03 07:59] LABS: Albumin 3.9 g/dL (3.5-5.0); Calcium 8.7 mg/dL (8.4-10.2); Potassium 4.7 mmol/L (3.5-5.1); Total Bilirubin 0.3 mg/dL (0.2-1.3); Total Protein 6.2 g/dL (6.3-8.2)
[2018-03-03] MEDS ORDERED: CALCITRIOL 0.25 MCG CAP PO SCH (09:00)
[2018-03-03] MEDS: ATENOLOL 50 MG TAB PO SCH (09:20)
[2018-03-03] MEDS: ALPRAZolam 1 MG TAB PO SCH (09:20)
[2018-03-03] MEDS: ATORVASTATIN 40 MG TAB PO SCH (09:21)
[2018-03-03] MEDS: ISOSORBIDE MONONITRATE ER 30 MG TAB.ER.24H PO SCH (09:21)
[2018-03-03] MEDS: GABAPENTIN 400 MG CAP PO SCH ×2 (09:21→20:22)
[2018-03-03] MEDS: FUROSEMIDE 40 MG TAB PO SCH (09:21)
[2018-03-03] MEDS: LINAGLIPTIN 5 MG TABLET PO SCH (09:22)
[2018-03-03] MEDS: SERTRALINE 100 MG TAB PO SCH ×2 (09:22→20:22)
[2018-03-03] MEDS: PRIMIDONE 50 MG TAB PO SCH ×2 (09:22→20:22)
[2018-03-03] MEDS: QUEtiapine 50 MG TAB PO SCH (09:22)
[2018-03-03] MEDS: LISINOPRIL 5 MG TAB PO SCH (09:22)
[2018-03-03] MEDS: MULTIVITAMINS, THERA 1 EACH TAB PO SCH (09:23)
--- NOTE | 2018-03-03 09:38 | P.PN ---
Subjective Progress Note Date: 03/03/18 Principal diagnosis: S/P Right TKA Patient is seen at bedside this morning. He is postop day #1 from Right Total Knee arthroplasty. He has mild pain at the surgical site as expected but denies any new complaints. He denies numbness, tingling or calf pain. Review of systems is negative for fever, chills, chest pain, shortness of breath or other Objective - Vital Signs Vital signs: Vital Signs Temp 99.2 F 03/03/18 08:15 Pulse 83 03/03/18 08:15 Resp 16 03/03/18 08:15 BP 161/83 03/03/18 08:15 Pulse Ox 96 03/03/18 08:15 Intake & Output 03/02/18 03/03/18 03/03/18 18:59 06:59 18:59 Intake Total 1201 Output Total 100 450 Balance 1101 -450 Weight 81.647 kg Intake: IV 1201 Output: Urine 450 Estimated Blood Loss 100 Other: # Voids 3 - Exam Inspection reveals a benign surgical wound. There is no active bleeding or drainage. Neurovascular status is intact throughout the lower extremity with motor and sensation fully intact. Calf is soft and nontender. 2+ dorsalis pedis pulse and less than 2 second cap refill is present - Constitutional General appearance: Present: no acute distress - Psychiatric Psychiatric: Present: A&O x's 3, appropriate affect, intact judgment & insight - Labs CBC & Chem 7: 03/03/18 07:00 03/03/18 07:00 Labs: Abnormal Lab Results - Last 24 Hours (Table) 03/02/18 03/02/18 03/02/18 Range/Units 12:44 15:43 16:36 RBC (4.30-5.90) m/uL Hgb (13.0-17.5) gm/dL Hct (39.0-53.0) % Neutrophils # (1.3-7.7) k/uL Lymphocytes # (1.0-4.8) k/uL PT (9.0-12.0) sec INR (<1.2) BUN (9-20) mg/dL Creatinine (0.66-1.25) mg/dL Glucose (74-99) mg/dL POC Glucose (mg/dL) 236 H 187 H 186 H (75-99) mg/dL Alkaline Phosphatase (38-126) U/L Total Protein (6.3-8.2) g/dL 03/02/18 03/03/18 03/03/18 Range/Units 20:58 06:58 07:00 RBC (4.30-5.90) m/uL Hgb (13.0-17.5) gm/dL Hct (39.0-53.0) % Neutrophils # (1.3-7.7) k/uL Lymphocytes # (1.0-4.8) k/uL PT (9.0-12.0) sec INR (<1.2) BUN 30 H (9-20) mg/dL Creatinine 1.76 H (0.66-1.25) mg/dL Glucose 253 H (74-99) mg/dL POC Glucose (mg/dL) 190 H 277 H (75-99) mg/dL Alkaline Phosphatase 214 H (38-126) U/L Total Protein 6.2 L (6.3-8.2) g/dL 03/03/18 03/03/18 Range/Units 07:00 07:00 RBC 3.44 L (4.30-5.90) m/uL Hgb 11.6 L (13.0-17.5) gm/dL Hct 34.4 L (39.0-53.0) % Neutrophils # 8.9 H (1.3-7.7) k/uL Lymphocytes # 0.8 L (1.0-4.8) k/uL PT 15.1 H (9.0-12.0) sec INR 1.6 H (<1.2) BUN (9-20) mg/dL Creatinine (0.66-1.25) mg/dL Glucose (74-99) mg/dL POC Glucose (mg/dL) (75-99) mg/dL Alkaline Phosphatase (38-126) U/L Total Protein (6.3-8.2) g/dL Assessment and Plan (1) Osteoarthritis of right knee Narrative/Plan: He will continue with routine postop orthopedic protocol including pain management, wound care, physical therapy, DVT prophylaxis and medical management. Expect that he will D/C to home or Rehab in next few days. Current Visit: Yes Status: Acute Priority: Medium Code(s): M17.11 - UNILATERAL PRIMARY OSTEOARTHRITIS, RIGHT KNEE SNOMED Code(s): 789636000216667 Time with Patient: Less than 30
[2018-03-03] MEDS: oxyCODONE-APAP 5-325MG 1 EACH TAB PO PRN ×2 (10:11→17:49)
[2018-03-03 11:01] LABS: Glucose,Whole Blood 242 mg/dL (75-99)
--- NOTE | 2018-03-03 12:01 | CDI ---
Last Revision, August 2017 Documentation Clarification Form Date: 03/03/2018 12:00:00 AM From: Pamela Bacon RN, CCDS Admit Date: 03/02/2018 10:01:00 AM Patient Name: Sunday Duncan Visit Number: [id number] Discharge Date: ATTENTION: The Clinical Documentation Specialists (CDI) and [facility] Coding Staff appreciate your assistance in clarifying documentation. Please respond to the clarification below the line at the bottom and electronically sign. The CDI & [facility] Coding staff will review the response and follow-up if needed. Please note: Queries are made part of the Legal Health Record. If you have any questions, please contact the author of this message via ITS. Dr. Corrine Tubbs History/Risk Factors: Renal disease, CAD, COPD, Diabetes mellitus, Hypertension , Colon cancer Clinical Indicators: 03/02/18 your medical consultation has noted a history of renal failure with his current BUN 30, Cr 1.76, GFR 36 Baseline BUN/CR/GFR: not noted; Treatment: Monitor Labs IV fluids@ 75 mls/hr In order to capture the severity of condition, please further clarify if the condition signifies: CKD Stage 1 (GFR > 90) CKD Stage 2 (GFR 60-89) CKD Stage 3 (GFR 30-59) CKD Stage 4 (GFR 15-29) Other, please specify Unable to determine Please continue to document in your progress notes and discharge summary in order to capture severity of illness and risk of mortality. Include clinical findings that support your diagnosis. CKD Stage 3 (GFR 30-59) MTDD
--- NOTE | 2018-03-03 15:47 | PN ---
PROGRESS NOTE DATE OF SERVICE: 03/03/2018 This 77-year-old gentleman who was admitted after right total knee arthroplasty is being closely monitored. No chest pain. No palpitations. No fever. EXAM: Alert and oriented x3. Pulse 67, blood pressure 93/42, respirations 17, temperature 99.3, pulse ox 91% on room air. HEENT: Conjunctivae normal. NECK: No jugular venous distention. CARDIOVASCULAR: S1, S2 muffled. RESPIRATORY: Breath sounds diminished in the bases. A few rhonchi. No crackles. ABDOMEN: Soft. LEGS: Status post surgery. NERVOUS SYSTEM: No focal deficits. LABS: WBC 7.2, hemoglobin 7.8, INR is 1.76. ASSESSMENT: 1. Status post right total knee arthroplasty. 2. Diabetes mellitus type 2. 3. Coronary artery disease. 4. Chronic kidney stage 3. 5. Chronic obstructive pulmonary disease. 6. Hypertension. 7. Hyperlipidemia. 8. History of colon cancer. 9. History of peripheral neuropathy. 10.History of Parkinson's. 11.Chronic back pain. 12.Gait dysfunction. 13.History of degenerative joint disease. 14.History of bowel resection. 15.History of glass eye. 16.Anxiety, depression. 17.Remote history of nicotine dependence. 18.Restless legs syndrome. RECOMMENDATION AND DISCUSSION: Continue to monitor. Continue current medications. Monitor PT/INR closely. Otherwise monitor creatinine closely. Increase ambulation. Possible ECF rehab. The rest of the recommendations per Orthopedic surgery. Further recommendations to follow. MMNICAL / ANDREN: [id number] /
[2018-03-03 17:16] LABS: Glucose,Whole Blood 159 mg/dL (75-99)
[2018-03-03] MEDS ORDERED: WARFARIN 5 MG TAB PO ONE (18:00)
[2018-03-03 18:40] LABS: Hemoglobin A1C 7.7 % (4.0-6.0)
[2018-03-03 20:20] LABS: Glucose,Whole Blood 172 mg/dL (75-99)
[2018-03-03] MEDS: SENNOSIDES-DOCUSATE SODIUM 1 EACH TAB PO SCH (20:29)
[2018-03-04] MEDS: oxyCODONE-APAP 5-325MG 1 EACH TAB PO PRN (05:55)
[2018-03-04 07:11] LABS: Glucose,Whole Blood 195 mg/dL (75-99)
[2018-03-04] MEDS: ALBUTEROL NEBULIZED 2.5 MG/3 ML INHALATION SCH ×2 (07:57→13:40)
[2018-03-04 08:25] VITALS: BP 120/68; RESP 16; TEMP 99.2
[2018-03-04] MEDS: LACTATED RINGERS 1,000 ML IV SCH (08:28)
[2018-03-04] MEDS: GABAPENTIN 400 MG CAP PO SCH (08:40)
[2018-03-04] MEDS: ALPRAZolam 1 MG TAB PO SCH (08:40)
[2018-03-04] MEDS: FUROSEMIDE 40 MG TAB PO SCH (08:41)
[2018-03-04] MEDS: ATORVASTATIN 40 MG TAB PO SCH (08:41)
[2018-03-04] MEDS: ISOSORBIDE MONONITRATE ER 30 MG TAB.ER.24H PO SCH (08:41)
[2018-03-04] MEDS: SERTRALINE 100 MG TAB PO SCH (08:41)
[2018-03-04] MEDS: ATENOLOL 50 MG TAB PO SCH (08:41)
[2018-03-04] MEDS: LINAGLIPTIN 5 MG TABLET PO SCH (08:41)
[2018-03-04] MEDS: QUEtiapine 50 MG TAB PO SCH (08:41)
[2018-03-04] MEDS: PRIMIDONE 50 MG TAB PO SCH (08:42)
[2018-03-04] MEDS: PANTOPRAZOLE 40 MG TABLET PO SCH (08:42)
[2018-03-04] MEDS: SODIUM BICARBONATE TAB 650 MG TAB PO SCH (08:42)
[2018-03-04] MEDS: OXYBUTYNIN CHLORIDE 5 MG TAB PO SCH (08:42)
[2018-03-04] MEDS: LISINOPRIL 5 MG TAB PO SCH (08:43)
[2018-03-04] MEDS: INSULIN ASPART 100 UNIT/ML 1 ML 10 ML VIAL SQ SCH ×2 (08:46→12:54)
[2018-03-04 10:22] LABS: INR 2.8 (<1.2)
--- NOTE | 2018-03-04 11:21 | P.DS ---
Providers Date of admission: 03/02/18 10:01 Expected date of discharge: 03/04/18 Attending physician: Heber Salinas Consults: 03/02/18 13:39 Consult Physician Routine Consulting Provider: Reilly Higginbotham Consult Reason/Comments: post op medical management Do you want consulting provider notified?: Yes 03/02/18 17:11 Consult Physician Routine Consulting Provider: Corrine Tubbs Reason/Comments: medical management Do you want consulting provider notified?: Already Contacted Primary care physician: Reilly Higginbotham - Discharge Diagnosis(es) (1) Status post total knee replacement, right Current Visit: Yes Status: Acute (2) Osteoarthritis of right knee Current Visit: Yes Status: Acute Priority: Medium Hospital Course: This is a pleasant 77-year-old male who presented with right knee osteoarthritis who failed outpatient conservative therapy. He was admitted for a right total knee arthroplasty performed by Dr. Heber Salinas. The patient tolerated the procedure well and did well postoperatively. He continues to have some pain at the right knee. He does feel he is ready for discharge to [facility] rehabilitation facility today. His pain has been well-controlled. He has ambulated somewhat with the assistance of physical therapy. Condition on day of discharge stable. Patient will be discharged to [facility]. Patient was cleared preoperatively for surgery by Dr. Reilly Higginbotham. Patient currently denies any nausea, vomiting, fever, or chills. Patient is eating and voiding freely without difficulty. Patient should continue to keep incision over the right knee clean, dry, and intact. May continue to weight- bear as tolerated on the right lower extremity. He may shower without a dressing over the right knee if his dressing remained dry over the next 3 days. He should continue taking medications as prescribed. He will continue with Coumadin 2.5 mg as previous he prescribed an outpatient setting over the next 28 days postoperatively. Patient is known to take Percocet 5 mg/325 mg 1 tab every 12 hours for pain as prescribed in the outpatient setting for his right knee pain and low back pain. He'll be given a prescription for Percocet 5 mg/ 325 mg 1 tab every 6 hours as needed for pain at discharge over the next 7 days , dispensed #28 with plans to return to his baseline at Percocet 5 mg #25 mg 1 tablet every 12 hours as needed for pain following the completion of his Percocet prescription at discharge. An "Opioid Start Talking" form has been completed by the patient and myself. MAPS has been reviewed. Medicine will plan to prescribe his Xanax and complete the med rec prior to discharge. Physical Exam Total Knee Arthroplasty: Status post surgical day number 2 Patient is awake, alert, and oriented 3 Vital signs stable Good chest excursion with deep inspiration and expiration Abdomen soft nontender No signs or symptoms of DVT; no calf pain Dressing is clean, dry, and intact; no erythema, purulence, or signs of infection Some pain with movement of the right knee Patient has full foot and ankle motion without difficulty bilateral lower extremities Dorsiflexion, plantar flexion, and extensor hallucis longus positive sustained bilaterally Neurovascular status left lower extremity intact Capillary refill lower extremity is bilaterally less than 2 seconds Procedures: Right total knee arthroplasty Patient Condition at Discharge: Stable Plan - Discharge Summary Discharge Rx Participant: No New Discharge Prescriptions: New Bisacodyl [Dulcolax] 10 mg RECTAL DAILY PRN supp PRN Reason: Constipation Ipratropium-Albuterol Nebulize [Duoneb 0.5 mg-3 mg/3 ml Soln] 3 ml INHALATION RT-QID ampul.neb Magnesium Hydroxide [Milk of Magnesia Concentrate] 2,400 mg PO DAILY PRN ml PRN Reason: Constipation oxyCODONE-APAP 5-325MG [Percocet 5-325 mg] 1 tab PO Q6HR PRN #28 tab PRN Reason: Pain Continue Oxybutynin Chloride [Ditropan] 5 mg PO TID Isosorbide Mononitrate [Imdur] 30 mg PO DAILY Atorvastatin Calcium [Lipitor] 40 mg PO DAILY Sertraline [Zoloft] 100 mg PO BID QUEtiapine [SEROquel] 50 mg PO DAILY Nitroglycerin Sl Tabs [Nitrostat] 0.4 mg SUBLINGUAL Q5M PRN PRN Reason: Chest Pain Cilostazol [Pletal] 50 mg PO DAILY rOPINIRole HCL [Requip] 0.5 mg PO HS sitaGLIPtin [Januvia] 25 mg PO DAILY Gabapentin 800 mg PO BID Omeprazole [PriLOSEC] 40 mg PO AC-BRKFST #14 capsule. Multivitamins Thera [Multivitamin (formulary)] 1 tab PO DAILY Furosemide [Lasix] 40 mg PO DAILY Atenolol [Tenormin] 50 mg PO DAILY Lisinopril [Zestril] 5 mg PO DAILY Ergocalciferol (Vitamin D2) [Vitamin D2] 50,000 unit PO Q14D Albuterol Inhaler [Ventolin Hfa Inhaler] 2 puff INHALATION RT-Q6H PRN PRN Reason: Shortness Of Breath Calcitriol 0.25 mcg PO MOFR Primidone [Mysoline] 150 mg PO BID ALPRAZolam 1 mg PO DAILY #30 tablet oxyCODONE-APAP 5-325MG [Percocet 5-325 mg] 1 tab PO Q12H PRN PRN Reason: Severe Pain Sodium Bicarbonate 325 mg PO TID Warfarin [Coumadin] 2.5 mg PO ONCE Warfarin [Coumadin] 7.5 mg PO ONCE Discontinued Albuterol Nebulized [Ventolin Nebulized] 2.5 mg INHALATION RT-TID Discharge Medication List Atorvastatin Calcium [Lipitor] 40 mg PO DAILY 01/28/14 [History] Isosorbide Mononitrate [Imdur] 30 mg PO DAILY 01/28/14 [History] Oxybutynin Chloride [Ditropan] 5 mg PO TID 01/28/14 [History] Sertraline [Zoloft] 100 mg PO BID 02/18/16 [History] Cilostazol [Pletal] 50 mg PO DAILY 08/09/16 [History] Nitroglycerin Sl Tabs [Nitrostat] 0.4 mg SUBLINGUAL Q5M PRN 08/09/16 [History] QUEtiapine [SEROquel] 50 mg PO DAILY 08/09/16 [History] rOPINIRole HCL [Requip] 0.5 mg PO HS 08/20/16 [History] Gabapentin 800 mg PO BID 10/23/16 [History] sitaGLIPtin [Januvia] 25 mg PO DAILY 10/23/16 [History] Omeprazole [PriLOSEC] 40 mg PO CHITRA-MILTONKFSJunior #14 capsule. 10/24/16 [Rx] Atenolol [Tenormin] 50 mg PO DAILY 01/21/17 [History] Furosemide [Lasix] 40 mg PO DAILY 01/21/17 [History] Lisinopril [Zestril] 5 mg PO DAILY 01/21/17 [History] Multivitamins, Thera [Multivitamin (formulary)] 1 tab PO DAILY 01/21/17 [History ] Ergocalciferol (Vitamin D2) [Vitamin D2] 50,000 unit PO Q14D 04/08/17 [History] Albuterol Inhaler [Ventolin Hfa Inhaler] 2 puff INHALATION RT-Q6H PRN 10/27/17 [ History] Calcitriol 0.25 mcg PO MOFR 10/27/17 [History] Primidone [Mysoline] 150 mg PO BID 10/27/17 [History] ALPRAZolam 1 mg PO DAILY #30 tablet 11/07/17 [Rx] oxyCODONE-APAP 5-325MG [Percocet 5-325 mg] 1 tab PO Q12H PRN 11/23/17 [History] Sodium Bicarbonate 325 mg PO TID 02/27/18 [History] Warfarin [Coumadin] 2.5 mg PO ONCE 03/02/18 [History] Warfarin [Coumadin] 7.5 mg PO ONCE 03/02/18 [History] Bisacodyl [Dulcolax] 10 mg RECTAL DAILY PRN supp 03/04/18 [Rx] Ipratropium-Albuterol Nebulize [Duoneb 0.5 mg-3 mg/3 ml Soln] 3 ml INHALATION RT -QID ampul.neb 03/04/18 [Rx] Magnesium Hydroxide [Milk of Magnesia Concentrate] 2,400 mg PO DAILY PRN ml [Rx] oxyCODONE-APAP 5-325MG [Percocet 5-325 mg] 1 tab PO Q6HR PRN #28 tab 03/04/18 [ Rx] Follow up Appointment(s)/Referral(s): Heber Salinas MD [STAFF PHYSICIAN] - 10 Days Activity/Diet/Wound Care/Special Instructions: 1. Keep wound clean and dry 2. Take meds as directed 3. Follow-up with Dr. Salinas in office 4. Weight bear as tolerated 5. May shower in 3 days if no bleeding Discharge Disposition: TRANSFER TO SNF/ECF
[2018-03-04 11:41] LABS: Glucose,Whole Blood 146 mg/dL (75-99)
[2018-03-04] MEDS: MULTIVITAMINS, THERA 1 EACH TAB PO SCH (12:54)
[2018-03-04 13:54] VITALS: PULSE 75
--- NOTE | 2018-03-04 16:27 | PN ---
PROGRESS NOTE DATE OF SERVICE: 03/04/2018 This 77-year-old gentleman admitted after right total knee arthroplasty has improved significantly. Patient has diabetes mellitus, uncontrolled. The patient is also on Coumadin for DVT prophylaxis. Patient is being closely monitored. Blood sugar is being monitored. INR is 2.8. Past medical history reviewed. REVIEW OF SYSTEMS: CARDIOVASCULAR SYSTEM: No angina, palpitations. RESPIRATORY SYSTEM: As mentioned earlier. GI: As mentioned earlier. : No dysuria or retention. NERVOUS SYSTEM: No numbness, weakness. Current medications are reviewed and include: 1. Tylenol 650 q.4 p.r.n. 2. Ventolin. 3. DuoNeb q.i.d. and p.r.n. 4. Xanax 1 mg p.o. daily. 5. Tenormin 50 mg daily. 6. Lipitor 40 mg daily. 7. Dulcolax 10 mg p.r.n. 8. Rocaltrol 0.25 mcg Tuesday and Tuesday. 9. Valium 2.5 mg q.8 p.r.n. 10.Vitamin D2 50,000. 11.Lasix 40 mg p.o. daily. 13.Dilaudid. 14.Vistaril. 15.Imdur. 16.Zestril. 17.Milk of Magnesia. 18.Multivitamins. 19.Narcan. 20.Nitrostat. 21.P.r.n. medications. PHYSICAL EXAMINATION: Patient is alert and oriented x3. Pulse is 78, blood pressure 130/68, respirations 16, temperature 99.2, pulse ox 94% on room air. HEENT: Conjunctivae normal. Oral mucosa moist. NECK: No jugular venous distention. No carotid bruit. No lymph node enlargement. CARDIOVASCULAR SYSTEM: S1, S2 muffled. RESPIRATORY SYSTEM: Breath sounds diminished at the bases. A few rhonchi. No crackles. ABDOMEN: Soft, non-tender. LEGS: Status post knee arthroplasty. NERVOUS SYSTEM: Higher functions as mentioned earlier. Moves all 4 limbs. No focal motor or sensory deficit. LYMPHATICS: No lymph node palpable in neck, axillae or groin. SKIN: No ulcer, rash, bleeding. LABS: Accu-Cheks 172, 191, 146. WBC 10.6. Hemoglobin 11.6. INR 2.8. ASSESSMENT: 1. Status post right total knee arthroplasty. 2. Diabetes mellitus, type 2. 3. Coumadin monitoring. 4. Coronary artery disease. 5. Chronic kidney disease, stage III. 6. Chronic obstructive pulmonary disease. 7. Hypertension. 8. Hyperlipidemia. 9. History of colon cancer. 10.History of peripheral neuropathy. 11.History of Parkinson's. 12.History of chronic back pain. 13.History of gait dysfunction. 14.History of degenerative joint disease. 15.History of bowel resection. 16.History of glass eye. 17.History of anxiety, depression. 18.Remote history of nicotine dependence. 19.Restless legs syndrome. RECOMMENDATIONS AND DISCUSSION: In this 77-year-old gentleman who presented with multiple complex medical issues , we will monitor the patient closely, continue I would recommend bronchodilators, DVT prophylaxis. Monitor PT/INR closely. See orders for discharge recommendations. Prognosis guarded. Closely follow up with Dr. Diaz and Dr. Duncan in ECF and Dr. Higginbotham after discharge from [facility]. BRITTANY / ANDREN: [id number] / LORENA
[2018-03-04] MEDS ORDERED: WARFARIN 2.5 MG TAB PO ONE (18:00)
--- NOTE | 2018-03-07 07:24 | CDI ---
Last Revision, August 2017 Documentation Clarification Form Date: 03/07/18 From: Astrid Jimbo Tanvi Mackenzie, Handmade Tile Artist Hours-8:30 am & 5 pm MJt Admit Date: 03/02/2018 10:01:00 AM Patient Name: Sunday Duncan Visit Number: [id number] Discharge Date: 03/04/18 ATTENTION: The Clinical Documentation Specialists (CDI) and [facility] Coding Staff appreciate your assistance in clarifying documentation. Please respond to the clarification below the line at the bottom and electronically sign. The CDI & [facility] Coding staff will review the response and follow-up if needed. Please note: Queries are made part of the Legal Health Record. If you have any questions, please contact the author of this message via ITS. Dr. Corrine Tubbs The patient has diabetes Type II uncontrolled, as indicated in progress note on 03/04. POC glucose: 236, 187, 186, 190, 277, 242, 159, 172, 195, 146 Glucose: 253 Hemoglobin A1c: 7.7 Treatment: Cover with adult NovoLOG sliding scale Per [facility] 2016 - query the provider for clarification whether the patient has hyperglycemia or hypoglycemia so that the appropriate code may be reported - uncontrolled diabetes indicates that the patient's blood sugar is not at an acceptable level, because it is either too high or too low. In order to capture the severity of Illness and necessary documentation specificity, please clarify if Type 2 uncontrolled diabetes is: Hyperglycemia Hypoglycemia Other, please specify Unable to Determine Please continue to document in your progress notes and discharge summary in order to capture severity of illness and risk of mortality. Include clinical findings that support your diagnosis. Hyperglycemia MTDD
[2018-03-14] MEDS ORDERED: ERGOCALCIFEROL 50,000 UNIT CAP PO SCH (09:00)
== END 2018-03-04 14:06 | DRG 470 ==
LOC: 2ORMAIN 10:01 → 3SUR 15:20
PROVIDERS: ADMIT Orthopaedic Surgery Sports Medicine; ATTEND Orthopaedic Surgery Sports Medicine
PROC: 0SRC0J9 Replacement of Right Knee Joint with Synthetic Substitute, Cemented, Open Approach (ICD-10-PCS; principal; 2018-03-02 12:45)
DX: M17.11 Unilateral primary osteoarthritis, right knee (principal); E11.22 Type 2 diabetes mellitus with diabetic chronic kidney disease; E11.42 Type 2 diabetes mellitus with diabetic polyneuropathy; E11.65 Type 2 diabetes mellitus with hyperglycemia; J44.9 Chronic obstructive pulmonary disease, unspecified; G20 Parkinson's disease; N18.3 Chronic kidney disease, stage 3 (moderate); I12.9 Hypertensive chronic kidney disease with stage 1 through stage 4 chronic kidney disease, or unspecified chronic kidney disease; E78.2 Mixed hyperlipidemia; I25.10 Atherosclerotic heart disease of native coronary artery without angina pectoris; G89.29 Other chronic pain; M54.5 Low back pain; G25.81 Restless legs syndrome; K21.9 Gastro-esophageal reflux disease without esophagitis; F32.9 Major depressive disorder, single episode, unspecified; F41.9 Anxiety disorder, unspecified; H91.90 Unspecified hearing loss, unspecified ear; R26.81 Unsteadiness on feet; Z79.01 Long term (current) use of anticoagulants; Z79.82 Long term (current) use of aspirin; Z79.84 Long term (current) use of oral hypoglycemic drugs; Z79.899 Other long term (current) drug therapy; Z85.038 Personal history of other malignant neoplasm of large intestine; Z87.891 Personal history of nicotine dependence; Z90.49 Acquired absence of other specified parts of digestive tract; Z97.0 Presence of artificial eye; Z98.1 Arthrodesis status; Z82.49 Family history of ischemic heart disease and other diseases of the circulatory system; Z80.8 Family history of malignant neoplasm of other organs or systems; Z83.49 Family history of other endocrine, nutritional and metabolic diseases
CPT/HCPCS: 71045; 80053; 83036; 85025; 85610; 88305; 88311; 94640

== ENCOUNTER → 2018-03-31 | Outpatient (CLI) | payer MEDICARE ==
--- NOTE | 2018-03-31 08:41 | US ---
EXAMINATION TYPE: US duplex aorta DATE OF EXAM: 03/31/2018 COMPARISON: MRI lumbar spine September 19, 2017 CLINICAL HISTORY: I70.0 Atherosclerosis of the aorta. Atherosclerosis EXAM MEASUREMENTS: Abdominal Aorta: Proximal: 2.3 x 2.3cm Mid: 1.8 x 2.0cm Distal: 1.7 x 1.7cm Right Iliac: 1.0 x 1.2cm Left Iliac: 0.9 x 1.2cm Visualized portions of abdominal aorta and bilateral proximal iliac arteries appear wnl. IMPRESSION: No ultrasound evidence for abdominal aortic aneurysm. Findings correlate with MRI lumbar spine.
== END | disposition home or self-care (01) ==
LOC: RADUSWWP 07:43
PROVIDERS: ATTEND Family Medicine
DX: I70.0 Atherosclerosis of aorta (principal)
CPT/HCPCS: 93979

== ENCOUNTER → 2018-04-15 | Outpatient (CLI) | payer MEDICARE ==
[2018-04-15 12:07] LABS: HGB 11.2 gm/dL (13.0-17.5); MCH 33.5 pg (25.0-35.0); MCV 101.7 fL (80.0-100.0); RBC 3.34 m/uL (4.30-5.90); WBC 7.9 k/uL (3.8-10.6)
[2018-04-15 12:08] LABS: MCHC 32.9 g/dL (31.0-37.0); Macrocytosis Slight; Mean Platelet Volume 8.5; Platelet Count 219 k/uL (150-450); RDW 15.5 % (11.5-15.5)
[2018-04-15 12:19] LABS: Albumin 3.8 g/dL (3.5-5.0); Calcium 8.7 mg/dL (8.4-10.2); Magnesium 2.4 mg/dL (1.6-2.3); Phosphorus 4.7 mg/dL (2.5-4.5); Potassium 4.9 mmol/L (3.5-5.1); Total Bilirubin 0.2 mg/dL (0.2-1.3); Total Protein 6.3 g/dL (6.3-8.2)
[2018-04-15 16:38] LABS: Parathyroid Hormone Intact 92.5 pg/mL (14.0-72.0)
[2018-04-15 16:48] LABS: Iron Saturation 53.02 (15.00-50.00)
[2018-04-15 17:57] LABS: Vitamin D 25 Hydroxy 37.2 ng/mL (30.0-100.0)
== END | disposition home or self-care (01) ==
LOC: LABWHC1 11:25
PROVIDERS: ATTEND Nurse Practitioner Family
DX: N18.3 Chronic kidney disease, stage 3 (moderate) (principal); D63.1 Anemia in chronic kidney disease; N25.81 Secondary hyperparathyroidism of renal origin; M10.9 Gout, unspecified; E55.9 Vitamin D deficiency, unspecified
CPT/HCPCS: 36415; 80053; 82306; 82728; 83540; 83550; 83735; 83970; 84100; 84550; 85027

== ENCOUNTER 2018-04-27 13:24 | Emergency (ER) | payer MEDICARE ==
[2018-04-27 13:32] VITALS: RESP 18
[2018-04-27] MEDS ORDERED: ONDANSETRON 4 MG/2 ML VIAL IVP STA (13:48)
[2018-04-27] MEDS ORDERED: MORPHINE SULFATE 4 MG/ML SYRINGE IVP STA ×2 (13:48→16:05)
--- NOTE | 2018-04-27 14:02 | ED ---
Extremity Problem HPI - General Chief complaint: Extremity Problem,Nontraumatic Stated complaint: restless leg syndrome Time Seen by Provider: 04/27/18 13:39 Source: patient Mode of arrival: wheelchair Limitations: no limitations - History of Present Illness Initial comments: 78-year-old male patient presents the emergency department today for evaluation of bilateral lower extremity pain. Patient has a past medical history significant for diabetes mellitus, chronic kidney disease with neuropathy to the lower extremities and restless leg syndrome. Patient states that he had sudden onset of increased pain to the lower legs about 30 minutes prior to arrival. Patient states he is having pain from the knee down. Patient states that the right leg hurt worse on the left. Patient did have a knee replacement on the right approximately [address] Salinas. Patient states he's been taking [place] at home for pain but this did not help what he calls "neuropathic pain". Patient states he did have low-grade temperature at 99.5F last night. Patient states that the right knee has been hot and the right lower leg has been swollen. Patient is taking warfarin currently. Patient denies any significant low back pain. Denies any loss of bowel or bladder control. Denies any numbness to the lower extremities. Patient denies any recent rash, chills, shortness breath, chest pain, abdominal pain, nausea, vomiting, diarrhea, constipation, dizziness, weakness, hematuria, dysuria, urinary urgency, urinary frequency, headache, visual changes, or any other complaints. - Related Data Home Medications Medication Instructions Recorded Confirmed Atorvastatin Calcium [Lipitor] 40 mg PO DAILY 01/28/14 04/27/18 Isosorbide Mononitrate [Imdur] 30 mg PO DAILY 01/28/14 04/27/18 Oxybutynin Chloride [Ditropan] 5 mg PO TID 01/28/14 04/27/18 Sertraline [Zoloft] 100 mg PO BID 02/18/16 04/27/18 Nitroglycerin Sl Tabs [Nitrostat] 0.4 mg SUBLINGUAL Q5M PRN 08/09/16 04/27/18 QUEtiapine [SEROquel] 50 mg PO DAILY 08/09/16 04/27/18 rOPINIRole HCL [Requip] 0.5 mg PO HS 08/20/16 04/27/18 Gabapentin 800 mg PO BID 10/23/16 04/27/18 Atenolol [Tenormin] 50 mg PO DAILY 01/21/17 04/27/18 Furosemide [Lasix] 40 mg PO DAILY 01/21/17 04/27/18 Lisinopril [Zestril] 5 mg PO DAILY 01/21/17 04/27/18 Multivitamins, Thera [Multivitamin 1 tab PO DAILY 01/21/17 04/27/18 (formulary)] Ergocalciferol (Vitamin D2) 50,000 unit PO Q14D 04/08/17 04/27/18 [Vitamin D2] Albuterol Inhaler [Ventolin Hfa 2 puff INHALATION RT-Q6H PRN 10/27/17 04/27/18 Inhaler] Calcitriol 0.25 mcg PO MOFR 10/27/17 04/27/18 Primidone [Mysoline] 150 mg PO BID 10/27/17 04/27/18 oxyCODONE-APAP 5-325MG [Percocet 1 tab PO Q12H PRN 11/23/17 04/27/18 5-325 mg] Sodium Bicarbonate 325 mg PO TID 02/27/18 04/27/18 Warfarin [Coumadin] 5 mg PO DAILY 04/27/18 04/27/18 Previous Rx's Medication Instructions Recorded Omeprazole [PriLOSEC] 40 mg PO AC-BRKFST #14 capsule. 10/24/16 ALPRAZolam 1 mg PO DAILY #30 tablet 11/07/17 Bisacodyl [Dulcolax] 10 mg RECTAL DAILY PRN supp 03/04/18 Ipratropium-Albuterol Nebulize 3 ml INHALATION RT-QID ampul.neb 03/04/18 [Duoneb 0.5 mg-3 mg/3 ml Soln] Cephalexin [Keflex] 500 mg PO Q6H #40 cap 04/27/18 Allergies Allergy/AdvReac Type Severity Reaction Status Date / Time No Known Allergies Allergy Verified 04/27/18 13:39 Review of Systems ROS Statement: Those systems with pertinent positive or pertinent negative responses have been documented in the HPI. ROS Other: All systems not noted in ROS Statement are negative. Past Medical History Past Medical History: Diabetes Mellitus, Hyperlipidemia, Hypertension Additional Past Medical History / Comment(s): restless leg sydrome, COLON CANCER , neuropathy, parkinsons, chronic back pain, History of Any Multi-Drug Resistant Organisms: None Reported Past Surgical History: Back Surgery, Bowel Resection, Heart Catheterization, Joint Replacement, Prostate Surgery Additional Past Surgical History / Comment(s): right knee replaced Past Anesthesia/Blood Transfusion Reactions: Previous Problems w/ Anesthesia, Motion Sickness Additional Past Anesthesia/Blood Transfusion Reaction / Comment(s): "couldn't move left arm [post anesthesia]" Past Psychological History: Anxiety, Depression Smoking Status: Former smoker Past Alcohol Use History: None Reported Past Drug Use History: None Reported - Past Family History Mother Family Medical History: Cancer, Hyperlipidemia, Hypertension Additional Family Medical History / Comment(s): ca: brain Father Family Medical History: Hyperlipidemia, Hypertension General Exam Limitations: no limitations General appearance: alert, in no apparent distress, other (This is a well- developed, well-nourished elderly male patient in no acute distress. Vital signs upon presentation are temperature 98.2F, pulse 59, respirations 18, blood pressure 90/55, pulse ox 96% on room air.) Eye exam: Present: normal appearance, PERRL, EOMI. Absent: scleral icterus, conjunctival injection, periorbital swelling ENT exam: Present: normal exam, normal oropharynx, mucous membranes moist Respiratory exam: Present: normal lung sounds bilaterally. Absent: respiratory distress, wheezes, rales, rhonchi, stridor Cardiovascular Exam: Present: regular rate, normal rhythm, normal heart sounds. Absent: systolic murmur, diastolic murmur, rubs, gallop, clicks Extremities exam: Present: full ROM, tenderness (Right anterior knee tenderness) , normal capillary refill, other (There is mild nonpitting edema noted to the right lower leg and foot. Right knee is hot to touch with very mild erythema. Pedal posttibial pulses are 2+ and equal bilaterally. Remainder leg is pink, warm, and dry. Cap refills less than 3 seconds.). Absent: normal inspection, pedal edema, joint swelling, calf tenderness Neurological exam: Present: alert, oriented X3, CN II-XII intact Psychiatric exam: Present: normal affect, normal mood Skin exam: Present: warm, dry, intact, normal color. Absent: rash Course Vital Signs 08/16/18 08/16/18 08/16/18 13:28 15:31 17:37 Temperature 98.2 F 97.6 F Pulse Rate 59 L 66 56 L Respiratory 18 18 18 Rate Blood Pressure 90/55 120/66 146/67 O2 Sat by Pulse 96 96 97 Oximetry Medical Decision Making - Medical Decision Making 78-year-old male patient presented to the emergency department today for evaluation of increased pain related to peripheral neuropathy. Physical examination did reveal some swelling and warmth to the right knee. Patient is status post right total knee approximate 2 months ago. Patient states he has had some low-grade fevers over the last couple of days. Labs reviewed and showed a normal white blood cell count. ESR is 36, and CRP was 29.7. Patient does take warfarin for prevention of blood clots. No calf tenderness or pain. No posterior knee pain or tenderness. I did discuss the case with Dr. Mcclure orthopedic on-call for Dr. Salinas, he recommends placing patient on Keflex for possible joint infection. Patient does have an appointment with Dr. Salinas tomorrow. Patient is urged to keep this appointment. Patient's neuropathic pain is improved upon reevaluation. He will be discharged with instructions to follow-up with his primary care physician to discuss further pain management options related to the neuropathy. Return parameters were discussed in detail. Patient is discharged in stable condition. He verbalizes understanding and agrees with this plan. - Lab Data Result diagrams: 04/27/18 14:17 04/27/18 14:17 Lab Results 04/27/18 04/27/18 04/27/18 Range/Units 14:17 14:17 14:17 WBC 9.7 (3.8-10.6) k/uL RBC 3.40 L (4.30-5.90) m/uL Hgb 11.6 L (13.0-17.5) gm/dL Hct 34.1 L (39.0-53.0) % MCV 100.3 H (80.0-100.0) fL MCH 34.1 (25.0-35.0) pg MCHC 34.0 (31.0-37.0) g/dL RDW 15.1 (11.5-15.5) % Plt Count 188 (150-450) k/uL Neutrophils % 78 % Lymphocytes % 13 % Monocytes % 5 % Eosinophils % 3 % Basophils % 0 % Neutrophils # 7.6 (1.3-7.7) k/uL Lymphocytes # 1.2 (1.0-4.8) k/uL Monocytes # 0.5 (0-1.0) k/uL Eosinophils # 0.3 (0-0.7) k/uL Basophils # 0.0 (0-0.2) k/uL Macrocytosis Slight ESR Cancelled PT 13.1 H (9.0-12.0) sec INR 1.4 H (<1.2) APTT 35.6 H (22.0-30.0) sec Sodium 138 (137-145) mmol/L Potassium 5.2 H (3.5-5.1) mmol/L Chloride 108 H (98-107) mmol/L Carbon Dioxide 19 L (22-30) mmol/L Anion Gap 11 mmol/L BUN 28 H (9-20) mg/dL Creatinine 1.90 H (0.66-1.25) mg/dL Est GFR (CKD-EPI)AfAm 38 (>60 ml/min/1.73 sqM) Est GFR (CKD-EPI)NonAf 33 (>60 ml/min/1.73 sqM) Glucose 175 H (74-99) mg/dL Plasma Lactic Acid Adrian (0.7-2.0) mmol/L Calcium 8.5 (8.4-10.2) mg/dL Total Bilirubin 0.5 (0.2-1.3) mg/dL AST 27 (17-59) U/L ALT 22 (21-72) U/L Alkaline Phosphatase 178 H (38-126) U/L C-Reactive Protein 29.7 H (<10.0) mg/L Total Protein 6.9 (6.3-8.2) g/dL Albumin 4.2 (3.5-5.0) g/dL 04/27/18 04/27/18 Range/Units 14:17 Unknown WBC (3.8-10.6) k/uL RBC (4.30-5.90) m/uL Hgb (13.0-17.5) gm/dL Hct (39.0-53.0) % MCV (80.0-100.0) fL MCH (25.0-35.0) pg MCHC (31.0-37.0) g/dL RDW (11.5-15.5) % Plt Count (150-450) k/uL Neutrophils % % Lymphocytes % % Monocytes % % Eosinophils % % Basophils % % Neutrophils # (1.3-7.7) k/uL Lymphocytes # (1.0-4.8) k/uL Monocytes # (0-1.0) k/uL Eosinophils # (0-0.7) k/uL Basophils # (0-0.2) k/uL Macrocytosis ESR 36 H PT (9.0-12.0) sec INR (<1.2) APTT (22.0-30.0) sec Sodium (137-145) mmol/L Potassium (3.5-5.1) mmol/L Chloride (98-107) mmol/L Carbon Dioxide (22-30) mmol/L Anion Gap mmol/L BUN (9-20) mg/dL Creatinine (0.66-1.25) mg/dL Est GFR (CKD-EPI)AfAm (>60 ml/min/1.73 sqM) Est GFR (CKD-EPI)NonAf (>60 ml/min/1.73 sqM) Glucose (74-99) mg/dL Plasma Lactic Acid Adrian 1.5 (0.7-2.0) mmol/L Calcium (8.4-10.2) mg/dL Total Bilirubin (0.2-1.3) mg/dL AST (17-59) U/L ALT (21-72) U/L Alkaline Phosphatase (38-126) U/L C-Reactive Protein (<10.0) mg/L Total Protein (6.3-8.2) g/dL Albumin (3.5-5.0) g/dL Disposition Clinical Impression: Peripheral neuropathy, Inflammation of joint of right knee Disposition: HOME SELF-CARE Condition: Good Instructions: Peripheral Neuropathy (ED), Knee Pain (ED) Additional Instructions: Take medications as directed. Follow-up with your orthopedic surgeon as you have planned tomorrow. Return here immediately for any new, worsening, or concerning symptoms. Prescriptions: Cephalexin [Keflex] 500 mg PO Q6H #40 cap Is patient prescribed a controlled substance at d/c from ED?: No Referrals: Reilly Higginbotham MD [Primary Care Provider] - 1-2 days Heber Salinas MD [STAFF PHYSICIAN] - 1-2 days Time of Disposition: 17:26
[2018-04-27 14:27] LABS: Basophils % (A) 0 %; Eosinophils # (A) 0.3 k/uL (0-0.7); Eosinophils % (A) 3 %; HCT 34.1 % (39.0-53.0); HGB 11.6 gm/dL (13.0-17.5); Lymphocytes # (A) 1.2 k/uL (1.0-4.8); Lymphocytes % (A) 13 %; MCH 34.1 pg (25.0-35.0); MCV 100.3 fL (80.0-100.0); Macrocytosis Slight; Mean Platelet Volume 9.3; Monocytes # (A) 0.5 k/uL (0-1.0); Monocytes % (A) 5 %; Neutrophils # (A) 7.6 k/uL (1.3-7.7); Neutrophils % (A) 78 %; Platelet Count 188 k/uL (150-450); RDW 15.1 % (11.5-15.5); WBC 9.7 k/uL (3.8-10.6)
[2018-04-27 14:38] LABS: INR 1.4 (<1.2); Partial Thromboplastin Time 35.6 sec (22.0-30.0); Prothrombin Time 13.1 sec (9.0-12.0)
[2018-04-27 14:41] LABS: Albumin 4.2 g/dL (3.5-5.0); C Reactive Protein 29.7 mg/L (<10.0); Calcium 8.5 mg/dL (8.4-10.2); Total Bilirubin 0.5 mg/dL (0.2-1.3); Total Protein 6.9 g/dL (6.3-8.2)
[2018-04-27 14:45] LABS: Potassium 5.2 mmol/L (3.5-5.1)
[2018-04-27] MEDS ORDERED: CEPHALEXIN 500MG STARTER PACK 4 CAP BTL PO STA (17:24)
[2018-04-27 17:39] VITALS: BP 146/67; PULSE 56; TEMP 97.6
== END 2018-04-27 17:50 | disposition home or self-care (01) ==
LOC: EC 13:24
DX: M13.861 Other specified arthritis, right knee (principal); G62.9 Polyneuropathy, unspecified; E11.9 Type 2 diabetes mellitus without complications; E78.5 Hyperlipidemia, unspecified; I10 Essential (primary) hypertension; G25.81 Restless legs syndrome; G20 Parkinson's disease; F32.9 Major depressive disorder, single episode, unspecified; F41.9 Anxiety disorder, unspecified; Z85.038 Personal history of other malignant neoplasm of large intestine; Z87.891 Personal history of nicotine dependence; Z79.01 Long term (current) use of anticoagulants; Z79.899 Other long term (current) drug therapy; Z96.651 Presence of right artificial knee joint; Z95.818 Presence of other cardiac implants and grafts
CPT/HCPCS: 99283; 96374; 96375; 96376; 36415; 80053; 85652; 83605; 85025; 85610; 85730; 86140; 87040; J2270; J2405

== ENCOUNTER 2018-05-28 09:48 | Emergency (ER) | payer MEDICARE ==
[2018-05-28 09:56] VITALS: BP 146/77; PULSE 61; RESP 16; TEMP 97.9
--- NOTE | 2018-05-28 10:42 | ED ---
General Adult HPI - General Chief complaint: Extremity Injury, Upper Stated complaint: Left Arm Pain/Swelling Time Seen by Provider: 05/28/18 10:06 Source: patient, RN notes reviewed Mode of arrival: ambulatory Limitations: no limitations - History of Present Illness Initial comments: Patient is a 78-year-old male presented to the emergency room today with a chief complaint of swelling down the left hand. Patient does admit that he was bitten by his own dog 10 days ago. Patient states that he saw his family doctor following this. He states he has been on antibiotics. He states that the area where he was bitten to the left forearm seems to be healing well. He states that he noticed some swelling down the left hand yesterday. Patient states it has improved somewhat today. Does admit that is somewhat sore with certain movements. States he has been doing physical therapy for his knee. Patient denies any injury or trauma to the area. He denies any other complaints or symptoms. Patient denies any recent fever, chills, shortness of breath, chest pain, back pain, abdominal pain, nausea or vomiting, numbness or tingling, headaches or visual changes, or any other complaints. - Related Data Home Medications Medication Instructions Recorded Confirmed Atorvastatin Calcium [Lipitor] 40 mg PO DAILY 01/28/14 04/27/18 Isosorbide Mononitrate [Imdur] 30 mg PO DAILY 01/28/14 04/27/18 Oxybutynin Chloride [Ditropan] 5 mg PO TID 01/28/14 04/27/18 Sertraline [Zoloft] 100 mg PO BID 02/18/16 04/27/18 Nitroglycerin Sl Tabs [Nitrostat] 0.4 mg SUBLINGUAL Q5M PRN 08/09/16 04/27/18 QUEtiapine [SEROquel] 50 mg PO DAILY 08/09/16 04/27/18 rOPINIRole HCL [Requip] 0.5 mg PO HS 08/20/16 04/27/18 Gabapentin 800 mg PO BID 10/23/16 04/27/18 Atenolol [Tenormin] 50 mg PO DAILY 01/21/17 04/27/18 Furosemide [Lasix] 40 mg PO DAILY 01/21/17 04/27/18 Lisinopril [Zestril] 5 mg PO DAILY 01/21/17 04/27/18 Multivitamins, Thera [Multivitamin 1 tab PO DAILY 01/21/17 04/27/18 (formulary)] Ergocalciferol (Vitamin D2) 50,000 unit PO Q14D 04/08/17 04/27/18 [Vitamin D2] Albuterol Inhaler [Ventolin Hfa 2 puff INHALATION RT-Q6H PRN 10/27/17 04/27/18 Inhaler] Calcitriol 0.25 mcg PO MOFR 10/27/17 04/27/18 Primidone [Mysoline] 150 mg PO BID 10/27/17 04/27/18 oxyCODONE-APAP 5-325MG [Percocet 1 tab PO Q12H PRN 11/23/17 04/27/18 5-325 mg] Sodium Bicarbonate 325 mg PO TID 02/27/18 04/27/18 Warfarin [Coumadin] 5 mg PO DAILY 04/27/18 04/27/18 Previous Rx's Medication Instructions Recorded Omeprazole [PriLOSEC] 40 mg PO AC-BRKFST #14 capsule. 10/24/16 ALPRAZolam 1 mg PO DAILY #30 tablet 11/07/17 Bisacodyl [Dulcolax] 10 mg RECTAL DAILY PRN supp 03/04/18 Ipratropium-Albuterol Nebulize 3 ml INHALATION RT-QID ampul.neb 03/04/18 [Duoneb 0.5 mg-3 mg/3 ml Soln] Cephalexin [Keflex] 500 mg PO Q6H #40 cap 04/27/18 Allergies Allergy/AdvReac Type Severity Reaction Status Date / Time No Known Allergies Allergy Verified 05/28/18 09:53 Review of Systems ROS Statement: Those systems with pertinent positive or pertinent negative responses have been documented in the HPI. ROS Other: All systems not noted in ROS Statement are negative. Past Medical History Past Medical History: Diabetes Mellitus, Hyperlipidemia, Hypertension Additional Past Medical History / Comment(s): restless leg sydrome, COLON CANCER , neuropathy, parkinsons, chronic back pain, History of Any Multi-Drug Resistant Organisms: None Reported Past Surgical History: Back Surgery, Bowel Resection, Heart Catheterization, Joint Replacement, Prostate Surgery Additional Past Surgical History / Comment(s): right knee replaced Past Anesthesia/Blood Transfusion Reactions: Previous Problems w/ Anesthesia, Motion Sickness Additional Past Anesthesia/Blood Transfusion Reaction / Comment(s): "couldn't move left arm [post anesthesia]" Past Psychological History: Anxiety, Depression Smoking Status: Former smoker Past Alcohol Use History: None Reported Past Drug Use History: None Reported - Past Family History Mother Family Medical History: Cancer, Hyperlipidemia, Hypertension Additional Family Medical History / Comment(s): ca: brain Father Family Medical History: Hyperlipidemia, Hypertension General Exam - General Exam Comments Initial Comments: General: The patient is awake and alert, in no distress, and does not appear acutely ill. Eye: Extra-ocular movements are intact. No nystagmus. There is normal conjunctiva bilaterally. No signs of icterus. Ears, nose, mouth and throat: There are moist mucous membranes and no oral lesions. Neck: The neck is supple, there is no tenderness or JVD. Cardiovascular: There is a regular rate and rhythm. No murmur, rub or gallop is appreciated. Respiratory: Lungs are clear to auscultation, respirations are non-labored, breath sounds are equal. No wheezes, stridor, rales, or rhonchi. Musculoskeletal: Normal ROM, no tenderness. Sensation intact. Strength 5/5. Radial Pulses equal bilaterally 2+. Neurological: A&O x 3. CN II-XII intact, There are no obvious motor or sensory deficits. Coordination appears grossly intact. Speech is normal. Skin: Skin is warm and dry and no rashes or lesions are noted. No obvious swelling. No redness or erythema. Puncture wound to the left forearm from dog bite healing well. Psychiatric: Cooperative, appropriate mood & affect, normal judgment. Limitations: no limitations Course Vital Signs 05/28/18 09:53 Temperature 97.9 F Pulse Rate 61 Respiratory 16 Rate Blood Pressure 146/77 O2 Sat by Pulse 96 Oximetry Medical Decision Making - Medical Decision Making Patient doing well at this time. Patient exam unremarkable. Full range of motion. Strength 5/5. Pulses equal bilaterally. Patient will be discharged to follow-up the family physician advised continue previous to prescribe antibiotics. There is no sign of infection at this time. Advised if symptoms increase worsen to return here to the emergency room. Patient states understanding and is in agreement. Disposition Clinical Impression: Hand swelling Disposition: HOME SELF-CARE Condition: Good Instructions: Animal Bite (ED) Additional Instructions: Please follow-up the family doctor this coming week. Please elevate the arm and hand as discussed. Please return to emergency room if symptoms increase or worsen Is patient prescribed a controlled substance at d/c from ED?: No Referrals: Reilly Higginbotham MD [Primary Care Provider] - 1-2 days Time of Disposition: 10:42
== END 2018-05-28 10:48 | disposition home or self-care (01) ==
LOC: EC 09:48
DX: M79.89 Other specified soft tissue disorders (principal); M79.602 Pain in left arm; E78.5 Hyperlipidemia, unspecified; I10 Essential (primary) hypertension; E11.40 Type 2 diabetes mellitus with diabetic neuropathy, unspecified; G25.81 Restless legs syndrome; G20 Parkinson's disease; Z85.038 Personal history of other malignant neoplasm of large intestine; F32.9 Major depressive disorder, single episode, unspecified; F41.9 Anxiety disorder, unspecified; Z87.891 Personal history of nicotine dependence; Z79.899 Other long term (current) drug therapy; Z79.01 Long term (current) use of anticoagulants; Z95.818 Presence of other cardiac implants and grafts; Z96.651 Presence of right artificial knee joint
CPT/HCPCS: 99283

== ENCOUNTER → 2018-06-23 | Outpatient (CLI) | payer MEDICARE ==
[2018-06-23 16:48] LABS: Calcium 8.8 mg/dL (8.4-10.2); Potassium 4.6 mmol/L (3.5-5.1)
== END | disposition home or self-care (01) ==
LOC: LABWHC1 15:59
PROVIDERS: ATTEND Internal Medicine Critical Care Medicine
DX: R06.09 Other forms of dyspnea (principal)
CPT/HCPCS: 36415; 80048

== ENCOUNTER → 2018-07-08 | Outpatient (CLI) | payer MEDICARE ==
[2018-07-08 11:24] LABS: Appearance,Urine Clear (Clear); Bilirubin,Urine Negative (Negative); Blood,Urine Negative (Negative); Color,Urine Yellow; Glucose,Urine (UA) Negative (Negative); Ketones,Urine Negative (Negative); Leukocyte Esterase,Urine Negative (Negative); Mucus,Urine Rare /hpf; Nitrite,Urine Negative (Negative); PH, Urine 6.5 (5.0-8.0); Protein,Urine 1+ (Negative); Specific Gravity,Urine 1.015 (1.001-1.035); Urobilinogen,Urine <2.0 mg/dL (<2.0); WBC,Urine <1 /hpf (0-5)
[2018-07-08 11:28] LABS: HCT 41.3 % (39.0-53.0); HGB 13.6 gm/dL (13.0-17.5); MCH 33.5 pg (25.0-35.0); MCHC 32.9 g/dL (31.0-37.0); Macrocytosis Slight; Mean Platelet Volume 8.5; Platelet Count 196 k/uL (150-450); RBC 4.05 m/uL (4.30-5.90); RDW 13.3 % (11.5-15.5); WBC 9.2 k/uL (3.8-10.6)
[2018-07-08 17:29] LABS: Iron Saturation 53.11 (15.00-50.00)
[2018-07-08 17:36] LABS: Vitamin D 25 Hydroxy 58.8 ng/mL (30.0-100.0)
[2018-07-08 18:00] LABS: Albumin 4.6 g/dL (3.80-4.90); Albumin/Globulin Ratio 2.09 (1.20-2.10); Anion Gap 8.3 mmol/L (4.00-12.00); Calcium 9.2 mg/dL (8.7-10.3); Carbon Dioxide 25.7 mmol/L (21.6-31.8); Globulin 2.2 g/dL (2.1-3.7); Magnesium 2.5 mg/dL (1.5-2.4); Parathyroid Hormone Intact 116.5 pg/mL (14.0-72.0); Phosphorus 3.3 mg/dL (2.4-5.1); Potassium 5.2 mmol/L (3.5-5.5); Total Bilirubin 0.3 mg/dL (0.3-1.2); Total Protein 6.8 g/dL (6.2-8.2); Uric Acid 5.6 mg/dL (3.7-8.7)
== END | disposition home or self-care (01) ==
LOC: LABWHC1 10:11
PROVIDERS: ATTEND Internal Medicine
DX: N18.3 Chronic kidney disease, stage 3 (moderate) (principal); D63.1 Anemia in chronic kidney disease; N39.0 Urinary tract infection, site not specified; R80.9 Proteinuria, unspecified; E21.3 Hyperparathyroidism, unspecified; E55.9 Vitamin D deficiency, unspecified; M10.9 Gout, unspecified
CPT/HCPCS: 36415; 80053; 81001; 82043; 82306; 82570; 82728; 83540; 83550; 83735; 83970; 84100; 84550; 85027

== ENCOUNTER → 2018-10-07 | Outpatient (CLI) | payer MEDICARE ==
[2018-10-08 11:01] LABS: HCT 38.9 % (39.0-53.0); HGB 12.9 gm/dL (13.0-17.5); MCH 35.2 pg (25.0-35.0); MCHC 33.3 g/dL (31.0-37.0); MCV 105.8 fL (80.0-100.0); Macrocytosis Moderate; Mean Platelet Volume 10.6; Platelet Count 168 k/uL (150-450); RBC 3.68 m/uL (4.30-5.90); RDW 13.6 % (11.5-15.5); WBC 9.8 k/uL (3.8-10.6)
[2018-10-08 11:10] LABS: Appearance,Urine Clear (Clear); Bilirubin,Urine Negative (Negative); Blood,Urine Negative (Negative); Color,Urine Light Yellow; Glucose,Urine (UA) Negative (Negative); Ketones,Urine Negative (Negative); Leukocyte Esterase,Urine Negative (Negative); Nitrite,Urine Negative (Negative); PH, Urine 6.5 (5.0-8.0); Protein,Urine Negative (Negative); Specific Gravity,Urine 1.009 (1.001-1.035); Urobilinogen,Urine <2.0 mg/dL (<2.0)
[2018-10-09 10:02] LABS: Iron Saturation 56.13 (15.00-50.00)
[2018-10-09 10:03] LABS: Parathyroid Hormone Intact 210.5 pg/mL (14.0-72.0)
[2018-10-09 10:12] LABS: Vitamin D 25 Hydroxy 55.5 ng/mL (30.0-100.0)
[2018-10-09 12:07] LABS: Albumin 4.4 g/dL (3.80-4.90); Anion Gap 8.3 mmol/L (4.00-12.00); Calcium 8.7 mg/dL (8.7-10.3); Carbon Dioxide 26.7 mmol/L (21.6-31.8); Globulin 2.2 g/dL (1.6-3.3); Magnesium 2.5 mg/dL (1.5-2.4); Phosphorus 3.4 mg/dL (2.4-5.1); Potassium 4.8 mmol/L (3.5-5.5); Total Bilirubin 0.2 mg/dL (0.3-1.2); Total Protein 6.6 g/dL (6.2-8.2); Uric Acid 7.1 mg/dL (3.7-8.7)
== END ==
LOC: LABWHC1 10:36
PROVIDERS: ATTEND Nurse Practitioner Family
DX: N18.3 Chronic kidney disease, stage 3 (moderate) (principal); D63.1 Anemia in chronic kidney disease; N39.0 Urinary tract infection, site not specified; E21.3 Hyperparathyroidism, unspecified; E55.9 Vitamin D deficiency, unspecified; M10.9 Gout, unspecified; R80.9 Proteinuria, unspecified
CPT/HCPCS: 36415; 80053; 81003; 82043; 82306; 82570; 82728; 83540; 83550; 83735; 83970; 84100; 84550; 85027

== ENCOUNTER 2018-12-11 17:41 | Emergency (ER) | payer MEDICARE ==
[2018-12-11 17:53] VITALS: TEMP 98.6
[2018-12-11] MEDS ORDERED: SODIUM CHLORIDE 0.9% 1,000 ML IV STA (18:49)
--- NOTE | 2018-12-11 18:52 | ED ---
General Adult HPI - General Source: patient, family, RN notes reviewed, old records reviewed Mode of arrival: ambulatory Limitations: no limitations <Bao Hernandez - Last Filed: 12/11/18 21:33> <Aldo Cartagena - Last Filed: 12/12/18 07:26> - General Chief complaint: GI Bleed Stated complaint: Blood in stool Time Seen by Provider: 12/11/18 18:36 - History of Present Illness Initial comments: 78-year-old male patient with past medical history of hypertension, type 2 diabetes, atrial fibrillation on Coumadin presented to ED with 1 day of barton colored stools. Patient reports that he has had approximately 3 occurrences of this, first at approximately 8 AM. Patient reports that he had a colonoscopy last year by Dr. Jorge and is scheduled for another one this month. Patient denies any pain. Patient denies any chest pain, abdominal pain, shortness of breath. Patient was seen at this ER yesterday for a separate problem of left eye bleeding, patient is status post globe placement. Patient reports that he has had appropriate follow-up and he is not experiencing any bleeding from his eye. Patient denies other complaints. Systemic: Pt denies fatigue, myalgia, fever/chills, rash. Pt denies weakness, night sweats, weight loss. Neuro: Pt denies headache, visual disturbances, syncope or pre-syncope. HEENT: Pt denies ocular discharge or irritation, otalgia, rhinorrhea, pharyngitis or notable lymphadenopathy. Cardiopulmonary: Pt denies chest pain, SOB, heart palpitations, dyspnea on exertion. Abdominal/GI: Pt denies abdominal pain, n/v/d. : Pt denies dysuria, burning w/ urination, frequency/urgency. Denies new onset urinary or bowel incontinence. MSK: Pt denies myalgia, loss of strength or function in extremities. Neuro: Pt denies new onset weakness, paresthesias. (Bao Hernandez) - Related Data Home Medications Medication Instructions Recorded Confirmed Isosorbide Mononitrate [Imdur] 30 mg PO DAILY 01/28/14 12/11/18 Oxybutynin Chloride [Ditropan] 5 mg PO TID 01/28/14 12/11/18 Sertraline [Zoloft] 100 mg PO BID 02/18/16 12/11/18 QUEtiapine [SEROquel] 50 mg PO HS 08/09/16 12/11/18 rOPINIRole HCL [Requip] 0.5 mg PO HS 08/20/16 12/11/18 Lisinopril [Zestril] 5 mg PO DAILY 01/21/17 12/11/18 Ergocalciferol (Vitamin D2) 50,000 unit PO Q7D 04/08/17 12/11/18 [Vitamin D2] Albuterol Inhaler [Ventolin Hfa 2 puff INHALATION RT-Q6H PRN 10/27/17 12/11/18 Inhaler] Primidone [Mysoline] 150 mg PO BID 10/27/17 12/11/18 Warfarin [Coumadin] 5 mg PO DAILY 04/27/18 12/11/18 Albuterol Nebulized [Ventolin 2.5 mg INHALATION RT-TID 12/11/18 12/11/18 Nebulized] Atenolol [Tenormin] 25 mg PO DAILY 12/11/18 12/11/18 Atorvastatin [Lipitor] 40 mg PO DAILY 12/11/18 12/11/18 Calcitriol 0.25 mcg PO TUTH 12/11/18 12/11/18 Calcium Acetate [Phoslo] 667 mg PO DAILY 12/11/18 12/11/18 Levothyroxine Sodium [Synthroid] 50 mcg PO DAILY 12/11/18 12/11/18 Sodium Bicarbonate Tab 325 mg PO TID 12/11/18 12/11/18 oxyCODONE-APAP 5-325MG [Percocet 1 tab PO DAILY PRN 12/11/18 12/11/18 5-325 mg] traZODone HCL 50 mg PO HS 12/11/18 12/11/18 Previous Rx's Medication Instructions Recorded Omeprazole [PriLOSEC] 40 mg PO REECE #14 capsule. 10/24/16 Amoxic-Pot Clav 875-125Mg 1 tab PO Q12HR #20 tablet 12/09/18 [Augmentin 875-125] Allergies Allergy/AdvReac Type Severity Reaction Status Date / Time No Known Allergies Allergy Verified 12/11/18 19:53 Review of Systems ROS Other: All systems not noted in ROS Statement are negative. <Bao Hernandez - Last Filed: 12/11/18 21:33> ROS Other: All systems not noted in ROS Statement are negative. <Aldo Cartagena - Last Filed: 12/12/18 07:26> ROS Statement: Those systems with pertinent positive or pertinent negative responses have been documented in the HPI. Past Medical History Past Medical History: Diabetes Mellitus, Hyperlipidemia, Hypertension Additional Past Medical History / Comment(s): restless leg sydrome, COLON CANCER, neuropathy, parkinsons, chronic back pain, History of Any Multi-Drug Resistant Organisms: None Reported Past Surgical History: Back Surgery, Bowel Resection, Heart Catheterization, Joint Replacement, Prostate Surgery Additional Past Surgical History / Comment(s): right knee replaced Past Anesthesia/Blood Transfusion Reactions: Previous Problems w/ Anesthesia, Motion Sickness Additional Past Anesthesia/Blood Transfusion Reaction / Comment(s): "couldn't move left arm [post anesthesia]" Past Psychological History: Anxiety, Depression Smoking Status: Former smoker Past Alcohol Use History: None Reported Past Drug Use History: None Reported - Past Family History Mother Family Medical History: Cancer, Hyperlipidemia, Hypertension Additional Family Medical History / Comment(s): ca: brain Father Family Medical History: Hyperlipidemia, Hypertension <Bao Hernandez - Last Filed: 12/11/18 21:33> General Exam Limitations: no limitations <Bao Hernandez - Last Filed: 12/11/18 21:33> - General Exam Comments Initial Comments: Constitutional: NAD, AOX3, Pt has pleasant affect. HEENT: NC/AT, trachea midline, neck supple, no lymphadenopathy. Posterior phary nx non erythematous, without exudates. External ears appear normal, without discharge. Mucous membranes moist. Eyes PERRLA, EOM intact. There is no scleral icterus. No pallor noted. Cardiopulmonary: RRR, no murmurs, rubs or gallops, no JVD noted. Lungs CTAB in anterior and posterior raphael. No peripheral edema. Abdominal exam: Abdomen soft and non-distended. Abdomen non-tender to palpation in all 4 quadrants. Bowel sounds active in LLQ. No hepatosplenomegaly. No ecchymosis Neuro: CN II-XII grossly intact. No nuchal rigidity. MSK: No posterior calf tenderness bilaterally, homans sign negative bilaterally. Posterior tibialis and radial pulse +2 bilaterally. Sensation intact in upper and lower extremities. Full active ROM in upper and lower extremities, 5/5 stregnth. (Bao Hernandez) Course Vital Signs 12/11/18 12/11/18 12/11/18 17:49 19:41 19:59 Temperature 98.6 F Pulse Rate 66 59 L 59 L Respiratory 20 18 18 Rate Blood Pressure 175/86 142/73 154/86 O2 Sat by Pulse 98 96 96 Oximetry 12/11/18 21:49 Temperature 98.6 F Pulse Rate 64 Respiratory 18 Rate Blood Pressure 158/81 O2 Sat by Pulse 98 Oximetry Medical Decision Making - Lab Data Result diagrams: 12/11/18 19:40 12/11/18 19:40 - EKG Data -: EKG Interpreted by Me (and dr vargas) <Bao Hernandez - Last Filed: 12/11/18 21:33> - Lab Data Result diagrams: 12/11/18 19:40 12/11/18 19:40 <Aldo Cartagena - Last Filed: 12/12/18 07:26> - Medical Decision Making 78-year-old male patient with past medical history of hypertension, type 2 diabetes, atrial fibrillation on Coumadin presented to ED with 1 day of barton colored stools. Patient reports that he has had approximately 3 occurrences of this, first at approximately 8 AM. Patient reports that he had a colonoscopy last year by Dr. Jorge and is scheduled for another one this month. Patient denies any pain. Patient denies any chest pain, abdominal pain, shortness of breath. Patient was seen at this ER yesterday for a separate problem of left eye bleeding, patient is status post globe placement. Patient reports that he has had appropriate follow-up and he is not experiencing any bleeding from his eye. Patient denies other complaints. Patient vital signs stable, afebrile. Physical exam did not display acute pathology. Abdominal exam revealed nontender, soft abdomen. No ecchymoses. Laboratory investigations reveal non- impressive CBC, CMP, coagulation studies, UA. Occult blood negative. KUB favored no stridor bowel pattern. EKG not concerning for acute ischemia. Troponin negative. Further history taking revealed the patient has been using a MiraLAX with a red dye the last 2 days for constipation. It is likely that the change in stool colors due to dietary factors. Patient to be discharged, will follow-up with Dr. Jorge tomorrow. Patient also follow up with primary care provider in 1-2 days. Patient return to ER if condition worsens in anyway. Case discussed with Dr. Vargas. (Bao eHrnandez) I saw this patient in conjunction with the physician assistant property manager. I performed independent history and physical exam. Agree with case management. (Aldo Cartagena) - Lab Data Lab Results 12/11/18 12/11/18 12/11/18 Range/Units 19:40 19:40 19:40 WBC 7.3 (3.8-10.6) k/uL RBC 4.35 (4.30-5.90) m/uL Hgb 14.9 (13.0-17.5) gm/dL Hct 43.6 (39.0-53.0) % MCV 100.2 H (80.0-100.0) fL MCH 34.3 (25.0-35.0) pg MCHC 34.3 (31.0-37.0) g/dL RDW 13.6 (11.5-15.5) % Plt Count 147 L (150-450) k/uL Neutrophils % 68 % Lymphocytes % 18 % Monocytes % 6 % Eosinophils % 6 % Basophils % 1 % Neutrophils # 4.9 (1.3-7.7) k/uL Lymphocytes # 1.3 (1.0-4.8) k/uL Monocytes # 0.4 (0-1.0) k/uL Eosinophils # 0.5 (0-0.7) k/uL Basophils # 0.1 (0-0.2) k/uL PT (9.0-12.0) sec INR (<1.2) APTT (22.0-30.0) sec Sodium 140 (137-145) mmol/L Potassium 4.8 (3.5-5.1) mmol/L Chloride 107 (98-107) mmol/L Carbon Dioxide 22 (22-30) mmol/L Anion Gap 11 mmol/L BUN 23 H (9-20) mg/dL Creatinine 1.79 H (0.66-1.25) mg/dL Est GFR (CKD-EPI)AfAm 41 (>60 ml/min/1.73 sqM) Est GFR (CKD-EPI)NonAf 35 (>60 ml/min/1.73 sqM) Glucose 150 H (74-99) mg/dL Calcium 8.6 (8.4-10.2) mg/dL Magnesium 2.4 H (1.6-2.3) mg/dL Total Bilirubin 0.5 (0.2-1.3) mg/dL AST 25 (17-59) U/L ALT 27 (21-72) U/L Alkaline Phosphatase 239 H (38-126) U/L Troponin I (0.000-0.034) ng/mL Total Protein 7.3 (6.3-8.2) g/dL Albumin 4.4 (3.5-5.0) g/dL Urine Color Urine Appearance (Clear) Urine pH (5.0-8.0) Ur Specific [place] (1.001-1.035) Urine Protein (Negative) Urine Glucose (UA) (Negative) Urine Ketones (Negative) Urine Blood (Negative) Urine Nitrite (Negative) Urine Bilirubin (Negative) Urine Urobilinogen (<2.0) mg/dL Ur Leukocyte Esterase (Negative) Urine Mucus (None) /hpf Stool Occult Blood Negative (Negative) Blood Type Blood Type Recheck Antibody Screen Spec Expiration Date 12/11/18 12/11/18 12/11/18 Range/Units 19:40 19:40 19:40 WBC (3.8-10.6) k/uL RBC (4.30-5.90) m/uL Hgb (13.0-17.5) gm/dL Hct (39.0-53.0) % MCV (80.0-100.0) fL MCH (25.0-35.0) pg MCHC (31.0-37.0) g/dL RDW (11.5-15.5) % Plt Count (150-450) k/uL Neutrophils % % Lymphocytes % % Monocytes % % Eosinophils % % Basophils % % Neutrophils # (1.3-7.7) k/uL Lymphocytes # (1.0-4.8) k/uL Monocytes # (0-1.0) k/uL Eosinophils # (0-0.7) k/uL Basophils # (0-0.2) k/uL PT 12.2 H (9.0-12.0) sec INR 1.2 H (<1.2) APTT 42.2 H (22.0-30.0) sec Sodium (137-145) mmol/L Potassium (3.5-5.1) mmol/L Chloride (98-107) mmol/L Carbon Dioxide (22-30) mmol/L Anion Gap mmol/L BUN (9-20) mg/dL Creatinine (0.66-1.25) mg/dL Est GFR (CKD-EPI)AfAm (>60 ml/min/1.73 sqM) Est GFR (CKD-EPI)NonAf (>60 ml/min/1.73 sqM) Glucose (74-99) mg/dL Calcium (8.4-10.2) mg/dL Magnesium (1.6-2.3) mg/dL Total Bilirubin (0.2-1.3) mg/dL AST (17-59) U/L ALT (21-72) U/L Alkaline Phosphatase (38-126) U/L Troponin I <0.012 (0.000-0.034) ng/mL Total Protein (6.3-8.2) g/dL Albumin (3.5-5.0) g/dL Urine Color Urine Appearance (Clear) Urine pH (5.0-8.0) Ur Specific [place] (1.001-1.035) Urine Protein (Negative) Urine Glucose (UA) (Negative) Urine Ketones (Negative) Urine Blood (Negative) Urine Nitrite (Negative) Urine Bilirubin (Negative) Urine Urobilinogen (<2.0) mg/dL Ur Leukocyte Esterase (Negative) Urine Mucus (None) /hpf Stool Occult Blood (Negative) Blood Type O Positive Blood Type Recheck No Antibody Screen NEGATIVE Spec Expiration Date 12/14/2018 - 233912/11/18 Range/Units 20:32 WBC (3.8-10.6) k/uL RBC (4.30-5.90) m/uL Hgb (13.0-17.5) gm/dL Hct (39.0-53.0) % MCV (80.0-100.0) fL MCH (25.0-35.0) pg MCHC (31.0-37.0) g/dL RDW (11.5-15.5) % Plt Count (150-450) k/uL Neutrophils % % Lymphocytes % % Monocytes % % Eosinophils % % Basophils % % Neutrophils # (1.3-7.7) k/uL Lymphocytes # (1.0-4.8) k/uL Monocytes # (0-1.0) k/uL Eosinophils # (0-0.7) k/uL Basophils # (0-0.2) k/uL PT (9.0-12.0) sec INR (<1.2) APTT (22.0-30.0) sec Sodium (137-145) mmol/L Potassium (3.5-5.1) mmol/L Chloride (98-107) mmol/L Carbon Dioxide (22-30) mmol/L Anion Gap mmol/L BUN (9-20) mg/dL Creatinine (0.66-1.25) mg/dL Est GFR (CKD-EPI)AfAm (>60 ml/min/1.73 sqM) Est GFR (CKD-EPI)NonAf (>60 ml/min/1.73 sqM) Glucose (74-99) mg/dL Calcium (8.4-10.2) mg/dL Magnesium (1.6-2.3) mg/dL Total Bilirubin (0.2-1.3) mg/dL AST (17-59) U/L ALT (21-72) U/L Alkaline Phosphatase (38-126) U/L Troponin I (0.000-0.034) ng/mL Total Protein (6.3-8.2) g/dL Albumin (3.5-5.0) g/dL Urine Color Light Yellow Urine Appearance Clear (Clear) Urine pH 6.0 (5.0-8.0) Ur Specific [place] 1.014 (1.001-1.035) Urine Protein 1+ H (Negative) Urine Glucose (UA) Negative (Negative) Urine Ketones Negative (Negative) Urine Blood Negative (Negative) Urine Nitrite Negative (Negative) Urine Bilirubin Negative (Negative) Urine Urobilinogen <2.0 (<2.0) mg/dL Ur Leukocyte Esterase Negative (Negative) Urine Mucus Rare H (None) /hpf Stool Occult Blood (Negative) Blood Type Blood Type Recheck Antibody Screen Spec Expiration Date - EKG Data EKG Comments: Ventricular rate 62, VT interval 188, QRS 98, QT/QTC 414/420. Normal sinus rhythm, normal EKG. No concerns for acute ischemia. (Bao Hernandez) Disposition Is patient prescribed a controlled substance at d/c from ED?: No <Bao Hernandez - Last Filed: 12/11/18 21:33> <Aldo Cartagena - Last Filed: 12/12/18 07:26> Clinical Impression: Abnormal stool color Disposition: HOME SELF-CARE Condition: Stable Instructions (If sedation given, give patient instructions): Gastrointestinal Bleeding (ED) Additional Instructions: Patient to adhere to previously discussed treatment plan and will take medication(s) as directed. Patient to follow up with PCP in 1-2 days. Patient to return to ED if symptoms do not improve. Please follow-up with Dr. Jorge tomorrow and pcp in 1-2 days. Please return to ER if condition worsens in anyway. Please return to ER if any abdominal pain develops. Note that you did not have a GI bleed, instructions are provided for informational purposes regarding GI bleed. Referrals: Reilly Higginbotham MD [Primary Care Provider] - 1-2 days Santa Jorge MD [STAFF PHYSICIAN] - 1-2 days
[2018-12-11 19:42] VITALS: RESP 18
[2018-12-11 20:06] LABS: Basophils # (A) 0.1 k/uL (0-0.2); Basophils % (A) 1 %; Eosinophils # (A) 0.5 k/uL (0-0.7); Eosinophils % (A) 6 %; HCT 43.6 % (39.0-53.0); HGB 14.9 gm/dL (13.0-17.5); Lymphocytes # (A) 1.3 k/uL (1.0-4.8); Lymphocytes % (A) 18 %; MCH 34.3 pg (25.0-35.0); MCHC 34.3 g/dL (31.0-37.0); MCV 100.2 fL (80.0-100.0); Mean Platelet Volume 8.9; Monocytes # (A) 0.4 k/uL (0-1.0); Monocytes % (A) 6 %; Neutrophils # (A) 4.9 k/uL (1.3-7.7); Neutrophils % (A) 68 %; Platelet Count 147 k/uL (150-450); RBC 4.35 m/uL (4.30-5.90); RDW 13.6 % (11.5-15.5); WBC 7.3 k/uL (3.8-10.6)
[2018-12-11 20:15] LABS: INR 1.2 (<1.2); Partial Thromboplastin Time 42.2 sec (22.0-30.0); Prothrombin Time 12.2 sec (9.0-12.0)
[2018-12-11 20:18] LABS: Albumin 4.4 g/dL (3.5-5.0); Calcium 8.6 mg/dL (8.4-10.2); Magnesium 2.4 mg/dL (1.6-2.3); Potassium 4.8 mmol/L (3.5-5.1); Total Bilirubin 0.5 mg/dL (0.2-1.3); Total Protein 7.3 g/dL (6.3-8.2)
[2018-12-11 21:07] LABS: Appearance,Urine Clear (Clear); Bilirubin,Urine Negative (Negative); Blood,Urine Negative (Negative); Color,Urine Light Yellow; Glucose,Urine (UA) Negative (Negative); Ketones,Urine Negative (Negative); Leukocyte Esterase,Urine Negative (Negative); Mucus,Urine Rare /hpf; Nitrite,Urine Negative (Negative); Protein,Urine 1+ (Negative); Specific Gravity,Urine 1.014 (1.001-1.035); Urobilinogen,Urine <2.0 mg/dL (<2.0)
--- NOTE | 2018-12-11 21:10 | XR ---
EXAMINATION TYPE: XR KUB DATE OF EXAM: 12/11/2018 9:02 PM CLINICAL HISTORY: Blood in stool and pain. TECHNIQUE: Two Upright KUB images of the abdomen are obtained. COMPARISON: Abdominal x-ray December 29, 2014. CT abdomen and pelvis December 10, 2015. FINDINGS: Gas is seen in nondistended stomach. There is some paucity of small bowel gas. Gas is seen in nondistended colon along the periphery with scattered air-fluid levels. There is scoliotic curvatu re with multilevel spurring in the spine. Postsurgical change lower lumbar spine is present. Multilev el disc space narrowing and spurring is seen in the upper to mid lumbar spine. No pneumoperitoneum is present. Small right pleural effusion is not excluded. Some sclerosis and narrowing right sacroiliac joint is suspected. IMPRESSION: Overall nonspecific but favor nonobstructive bowel gas pattern.
[2018-12-11 21:50] VITALS: BP 158/81; PULSE 64
== END 2018-12-11 21:49 | disposition home or self-care (01) ==
LOC: EC 17:41
DX: R19.5 Other fecal abnormalities (principal); I48.91 Unspecified atrial fibrillation; E78.5 Hyperlipidemia, unspecified; I10 Essential (primary) hypertension; G25.81 Restless legs syndrome; F41.9 Anxiety disorder, unspecified; F32.9 Major depressive disorder, single episode, unspecified; Z85.038 Personal history of other malignant neoplasm of large intestine; Z95.818 Presence of other cardiac implants and grafts; Z96.651 Presence of right artificial knee joint; Z87.891 Personal history of nicotine dependence; Z79.01 Long term (current) use of anticoagulants; Z79.890 Hormone replacement therapy; Z79.899 Other long term (current) drug therapy
CPT/HCPCS: 36415; 74018; 80053; 81001; 82272; 83735; 84484; 85025; 85610; 85730; 86850; 86900; 86901; 93005; 96360; 99285

== ENCOUNTER 2018-12-18 10:09 | Day surgery (SDC) | payer MEDICARE ==
[2018-12-15 09:20] VITALS: BMI 29.1
[~2018-12-18 10:09] MED LIST changes: +LACTATED RINGERS 1,000 ML IV SCH; -ROPIVACAINE 246.25 MG, EPINEPHrine 0.5 MG, KETOROLAC 30 MG, cloNIDine HCL/PF 80 MCG, WA... MISCELLANE ONE
[2018-12-18] MEDS ORDERED: LACTATED RINGERS 1,000 ML IV ONE (10:29)
[2018-12-18 10:40] LABS: Glucose,Whole Blood 196 mg/dL (75-99)
[2018-12-18 10:46] VITALS: RESP 18; TEMP 97.8
[2018-12-18] MEDS ORDERED: LIDOCAINE 1% 20 ML VIAL (10MG/ML) FOR IV START INTRADERMA ONE (10:46)
[2018-12-18] MEDS ORDERED: LIDOCAINE 1% INJ 10MG/ML (20 ML MDV) ONE (12:35)
[2018-12-18] MEDS ORDERED: PROPOFOL 10 MG/ML 20 ML VIAL IV ONE (12:35)
--- NOTE | 2018-12-18 12:36 | P.GSHP ---
History of Present Illness H&P Date: 12/18/18 CHIEF COMPLAINT: GERD and colon screen HISTORY OF PRESENT ILLNESS: The patient is a 78-year-old male who presents with gastroesophageal reflux disease and need for colon screen. Upper and lower endoscopy were offered for further evaluation and management. PAST MEDICAL HISTORY: Please see list. PAST SURGICAL HISTORY: Please see list. MEDICATIONS: Please see list. ALLERGIES: Please see list. SOCIAL HISTORY: No illicit drug use FAMILY HISTORY: No reports of Crohn disease or ulcerative colitis. REVIEW OF ORGAN SYSTEMS: CONSTITUTIONAL: No reports of fevers or chills. GI: Denies any blood in stools or constipation. PHYSICAL EXAM: VITAL SIGNS: Stable GENERAL: Well-developed pleasant in no acute distress. HEENT: No scleral icterus. Extraocular movements grossly intact. Moist buccal mucosa. NECK: Supple without lymphadenopathy. CHEST: Unlabored respirations. Equal bilateral excursions. CARDIOVASCULAR: Regular rate and rhythm. Distal 2+ pulses. ABDOMEN: Soft, nondistended. MUSCULOSKELETAL: No clubbing, cyanosis, or edema. ASSESSMENT: 1. Gastroesophageal reflux disease 2. Colon screen. PLAN: 1. Recommend proceeding with an upper and lower endoscopy Past Medical History Past Medical History: Atrial Fibrillation, Cancer, Diabetes Mellitus, GERD/Reflux, Hyperlipidemia, Hypertension, Renal Disease, Thyroid Disorder Additional Past Medical History / Comment(s): artificial Left eye, recent bleeding from left eye globe, restless leg sydrome, COLON CANCER, neuropathy, parkinsons, chronic back pain, History of Any Multi-Drug Resistant Organisms: None Reported Past Surgical History: Back Surgery, Bowel Resection, Heart Catheterization, Joint Replacement, Prostate Surgery Additional Past Surgical History / Comment(s): right knee replaced, back sx with titanium gavin Past Anesthesia/Blood Transfusion Reactions: Previous Problems w/ Anesthesia, Motion Sickness Additional Past Anesthesia/Blood Transfusion Reaction / Comment(s): "couldn't move left arm [post anesthesia]" Smoking Status: Former smoker - Past Family History Mother Family Medical History: Cancer, Hyperlipidemia, Hypertension Additional Family Medical History / Comment(s): ca: brain Father Family Medical History: Hyperlipidemia, Hypertension Medications and Allergies Home Medications Medication Instructions Recorded Confirmed Type Isosorbide Mononitrate [Imdur] 30 mg PO DAILY 01/28/14 12/15/18 History Oxybutynin Chloride [Ditropan] 5 mg PO TID 01/28/14 12/15/18 History Sertraline [Zoloft] 100 mg PO BID 02/18/16 12/15/18 History QUEtiapine [SEROquel] 50 mg PO HS 08/09/16 12/15/18 History rOPINIRole HCL [Requip] 0.5 mg PO HS 08/20/16 12/15/18 History Omeprazole [PriLOSEC] 40 mg PO AC-MILTONKT #14 capsule. 10/24/16 12/15/18 Rx Lisinopril [Zestril] 5 mg PO DAILY 01/21/17 12/15/18 History Ergocalciferol (Vitamin D2) 50,000 unit PO WE 04/08/17 12/15/18 History [Vitamin D2] Albuterol Inhaler [Ventolin Hfa 2 puff INHALATION RT-Q6H PRN 10/27/17 12/15/18 History Inhaler] Primidone [Mysoline] 150 mg PO BID 10/27/17 12/15/18 History Warfarin [Coumadin] 5 mg PO DAILY 04/27/18 12/15/18 History Albuterol Nebulized [Ventolin 2.5 mg INHALATION RT-TID 12/11/18 12/15/18 History Nebulized] Atenolol [Tenormin] 25 mg PO DAILY 12/11/18 12/15/18 History Atorvastatin [Lipitor] 40 mg PO DAILY 12/11/18 12/15/18 History Calcitriol 0.25 mcg PO TUTH 12/11/18 12/15/18 History Calcium Acetate [Phoslo] 667 mg PO PC-SUPPER 12/11/18 12/15/18 History Levothyroxine Sodium [Synthroid] 50 mcg PO DAILY 12/11/18 12/15/18 History oxyCODONE-APAP 5-325MG [Percocet 1 tab PO DAILY PRN 12/11/18 12/15/18 History 5-325 mg] Furosemide [Lasix] 40 mg PO DAILY 12/15/18 12/15/18 History Gabapentin 600 mg PO BID 12/15/18 12/15/18 History Gabapentin 800 mg PO BID 12/15/18 12/15/18 History Linagliptin [Tradjenta] 5 mg PO DAILY 12/15/18 12/15/18 History Moxifloxacin HCl [Moxifloxacin] 1 drop LEFT EYE TID 12/15/18 12/15/18 History Suvorexant [Belsomra] 10 mg PO HS 12/15/18 12/15/18 History Allergies Allergy/AdvReac Type Severity Reaction Status Date / Time No Known Allergies Allergy Verified 12/15/18 09:12 Surgical - Exam Vital Signs Temp Pulse Resp BP Pulse Ox 97.8 F 59 L 18 168/86 97 12/18/18 10:30 12/18/18 10:30 12/18/18 10:30 12/18/18 10:30 12/18/18 10:30 Results - Labs Abnormal Lab Results - Last 24 Hours (Table) 12/18/18 Range/Units 10:38 POC Glucose (mg/dL) 196 H (75-99) mg/dL
--- NOTE | 2018-12-18 12:49 | P.PCN ---
Date of Procedure: 12/18/18 Description of Procedure: PREOPERATIVE DIAGNOSIS: Anemia History of chronic anticoagulant use POSTOPERATIVE DIAGNOSIS: Anemia History of chronic anticoagulant use Acute superficial gastritis with bleeding OPERATION: Esophagogastroduodenoscopy with biopsies along antrum. SURGEON: Santa Jorge MD ANESTHESIA: MAC. INDICATIONS: The patient is a 78-year-old male who presents with a history of anemia. Upper endoscopy over for anemia workup. Benefits and risks of the procedure were described. Informed consent was obtained. DESCRIPTION: The patient was brought into the endoscopy suite and laid in the left lateral decubitus position. An Olympus gastroscope was passed along the posterior oropharynx down to the distal esophagus where the squamocolumnar junction was encountered at 35 cm from the incisors. The stomach was entered and no bile reflux was found. Additional findings are listed below. Biopsies with cold forceps were obtained of the antrum. The first through third portion of the duodenum was examined and unremarkable. Retroflexion of the scope confirmed Hill grade 1 lower esophageal valve. The squamocolumnar junction demonstrated no LA grade A erosive esophagitis. The stomach was desufflated. The patient tolerated the procedure well. FINDINGS: Squamocolumnar junction 35 cm from the incisors. Diaphragmatic hiatus at 35 cm. Hill grade 1 lower esophageal valve. No LA grade A erosive esophagitis. No active duodenitis. Chronic gastritis with recent bleed, superficial and acute RECOMMENDATIONS: Upper endoscopy as needed.
--- NOTE | 2018-12-18 13:16 | P.PCN ---
Date of Procedure: 12/18/18 Description of Procedure: PREOPERATIVE DIAGNOSIS: Anemia History of colon cancer with partial colon resection Chronic constipation POSTOPERATIVE DIAGNOSIS: Anemia History of colon cancer with partial colon resection Chronic constipation Multiple tubular adenomas descending colon, transverse colon Internal hemorrhoids, stage 2. Sigmoid diverticulosis OPERATION: Colonoscopy to the ileocecal valve and appendiceal orifice. Colonoscopy with multiple hot snare polypectomies SURGEON: Santa Jorge MD. ANESTHESIA: MAC. INDICATIONS: The patient is a 78-year-old male who presents with anemia and history of colon cancer. Benefits and risks were described and informed consent was obtained. DESCRIPTION OF PROCEDURE: The patient had undergone Gatorade, MiraLAX and Dulcolax prep. He had been brought into the operating room and laid in the left lateral decubitus position. After adequate intravenous sedation, the rectum was examined with 2% lidocaine jelly. External hemorrhoids were encountered. The rectal tone was within normal limits. No lesions were palpated in the rectal vault. An Olympus colonoscope was advanced until the ileocecal valve and appendiceal orifice were clearly viewed. The prep was fair with visualization of the mucosal folds. The scope was removed with visualization of each mucosal fold. Sigmoid diverticulosis was encountered. Multiple colonic polyps were found and cold forcep biopsy or snare polypectomy. No evidence of focal colitis was found. Retroflexion of the scope demonstrated grade 1 internal hemorrhoids without active bleeding or inflammation. The colon was desufflated. The patient had tolerated the procedure well. Withdrawal time was over 6 minutes. FINDINGS: [place] preparation quality scale 2 (1-5) Internal hemorrhoids, grade 2 No external hemorrhoids No arteriovenous malformations Partial colon resection with ileocolic anastomosis Sigmoid diverticulosis Removal of 6 polyps: - Snare polypectomy at ileocolic anastomosis 2, 3 and 5 mm tubulovillous adenoma polyp. - Snare polypectomy at mid transverse colon and 3, 4-mm, 5-mm, and 4-mm flat villous adenoma polyp. - Snare polypectomy at 40 cm from the anal verge, descending colon, 5 mm flat villous adenoma polyp. RECOMMENDATIONS: Lower endoscopy as needed Plan - Discharge Summary Discharge Rx Participant: No New Discharge Prescriptions: No Action Oxybutynin Chloride [Ditropan] 5 mg PO TID Isosorbide Mononitrate [Imdur] 30 mg PO DAILY Sertraline [Zoloft] 100 mg PO BID QUEtiapine [SEROquel] 50 mg PO HS rOPINIRole HCL [Requip] 0.5 mg PO HS Omeprazole [PriLOSEC] 40 mg PO AC-BRKFST #14 capsule. Lisinopril [Zestril] 5 mg PO DAILY Ergocalciferol (Vitamin D2) [Vitamin D2] 50,000 unit PO WE Albuterol Inhaler [Ventolin Hfa Inhaler] 2 puff INHALATION RT-Q6H PRN PRN Reason: Shortness Of Breath Primidone [Mysoline] 150 mg PO BID Warfarin [Coumadin] 5 mg PO DAILY Albuterol Nebulized [Ventolin Nebulized] 2.5 mg INHALATION RT-TID oxyCODONE-APAP 5-325MG [Percocet 5-325 mg] 1 tab PO DAILY PRN PRN Reason: Pain Levothyroxine Sodium [Synthroid] 50 mcg PO DAILY Calcium Acetate [Phoslo] 667 mg PO PC-SUPPER Calcitriol 0.25 mcg PO TUTH Atorvastatin [Lipitor] 40 mg PO DAILY Atenolol [Tenormin] 25 mg PO DAILY Linagliptin [Tradjenta] 5 mg PO DAILY Suvorexant [Belsomra] 10 mg PO HS Gabapentin 800 mg PO BID Gabapentin 600 mg PO BID Furosemide [Lasix] 40 mg PO DAILY Moxifloxacin HCl [Moxifloxacin] 1 drop LEFT EYE TID Discharge Medication List Isosorbide Mononitrate [Imdur] 30 mg PO DAILY 01/28/14 [History] Oxybutynin Chloride [Ditropan] 5 mg PO TID 01/28/14 [History] Sertraline [Zoloft] 100 mg PO BID 02/18/16 [History] QUEtiapine [SEROquel] 50 mg PO HS 08/09/16 [History] rOPINIRole HCL [Requip] 0.5 mg PO HS 08/20/16 [History] Omeprazole [PriLOSEC] 40 mg PO AC-BRKFST #14 capsule. 10/24/16 [Rx] Lisinopril [Zestril] 5 mg PO DAILY 01/21/17 [History] Ergocalciferol (Vitamin D2) [Vitamin D2] 50,000 unit PO WE 04/08/17 [History] Albuterol Inhaler [Ventolin Hfa Inhaler] 2 puff INHALATION RT-Q6H PRN 10/27/17 [History] Primidone [Mysoline] 150 mg PO BID 10/27/17 [History] Warfarin [Coumadin] 5 mg PO DAILY 04/27/18 [History] Albuterol Nebulized [Ventolin Nebulized] 2.5 mg INHALATION RT-TID 12/11/18 [History] Atenolol [Tenormin] 25 mg PO DAILY 12/11/18 [History] Atorvastatin [Lipitor] 40 mg PO DAILY 12/11/18 [History] Calcitriol 0.25 mcg PO TUTH 12/11/18 [History] Calcium Acetate [Phoslo] 667 mg PO PC-SUPPER 12/11/18 [History] Levothyroxine Sodium [Synthroid] 50 mcg PO DAILY 12/11/18 [History] oxyCODONE-APAP 5-325MG [Percocet 5-325 mg] 1 tab PO DAILY PRN 12/11/18 [History] Furosemide [Lasix] 40 mg PO DAILY 12/15/18 [History] Gabapentin 600 mg PO BID 12/15/18 [History] Gabapentin 800 mg PO BID 12/15/18 [History] Linagliptin [Tradjenta] 5 mg PO DAILY 12/15/18 [History] Moxifloxacin HCl [Moxifloxacin] 1 drop LEFT EYE TID 12/15/18 [History] Suvorexant [Belsomra] 10 mg PO HS 12/15/18 [History] Follow up Appointment(s)/Referral(s): Santa Jorge MD [STAFF PHYSICIAN] - 01/09/19 Patient Instructions/Handouts: Colorectal Polyps (DC), Diverticulosis Diet (GEN), Diverticulosis (ED) Activity/Diet/Wound Care/Special Instructions: Restart any blood thinner in 2 days on 12/20/18. Discharge Disposition: HOME SELF-CARE
[2018-12-18 13:45] VITALS: BP 146/67; PULSE 55
== END 2018-12-18 14:18 | disposition home or self-care (01) ==
LOC: ORWHC2ENDO 10:09
PROVIDERS: ATTEND Surgery Plastic and Reconstructive Surgery
DX: K29.31 Chronic superficial gastritis with bleeding (principal); K29.01 Acute gastritis with bleeding; D12.0 Benign neoplasm of cecum; D12.3 Benign neoplasm of transverse colon; D37.4 Neoplasm of uncertain behavior of colon; K57.30 Diverticulosis of large intestine without perforation or abscess without bleeding; K64.1 Second degree hemorrhoids; Z85.038 Personal history of other malignant neoplasm of large intestine; Z98.0 Intestinal bypass and anastomosis status; K21.9 Gastro-esophageal reflux disease without esophagitis; I48.91 Unspecified atrial fibrillation; Z79.01 Long term (current) use of anticoagulants; I12.9 Hypertensive chronic kidney disease with stage 1 through stage 4 chronic kidney disease, or unspecified chronic kidney disease; E11.22 Type 2 diabetes mellitus with diabetic chronic kidney disease; N18.9 Chronic kidney disease, unspecified; E11.40 Type 2 diabetes mellitus with diabetic neuropathy, unspecified; Z79.84 Long term (current) use of oral hypoglycemic drugs; E78.5 Hyperlipidemia, unspecified; G25.81 Restless legs syndrome; E07.9 Disorder of thyroid, unspecified; Z87.891 Personal history of nicotine dependence; F32.9 Major depressive disorder, single episode, unspecified; G89.29 Other chronic pain; M54.9 Dorsalgia, unspecified; G20 Parkinson's disease; Z80.8 Family history of malignant neoplasm of other organs or systems; Z79.890 Hormone replacement therapy; Z79.899 Other long term (current) drug therapy
CPT/HCPCS: 88305; 45380; 45385; 43239; J2001; J2704

== ENCOUNTER → 2018-12-28 | Outpatient (CLI) | payer MEDICARE ==
--- NOTE | 2018-12-28 19:47 | CONS ---
CONSULTATION DATE OF SERVICE: 12/28/2018 78-year-old gentleman has been evaluated in [facility] for multiple sleep problems including difficulties to initiate sleep and multiple awakenings from sleep with nocturia and subsequent difficulty to fall asleep again. HISTORY OF PRESENT ILLNESS/SLEEP-WAKE EVALUATION: SLEEP SCHEDULE: Patient usually goes to bed around 11:30 pm. FALLING ASLEEP: No TV in bedroom, but he has difficulties to fall asleep. Then even if he is falling asleep, he started to wake up from sleep 3 times with nocturia. DURING SLEEP: He wakes up with dry mouth, episodes of panic attack and restless legs. DURING THE DAY/SLEEP WAKE EVALUATION: In the morning, patient wakes up tired, falling asleep during the day, worried about his sleep, has episodes of depression and anxiety. [place] Sleepiness Scale significantly increased to 13. PAST MEDICAL HISTORY: Positive for hypertension, hyperlipidemia, acid reflux, restless legs, according to patient, he has history of atrial fibrillation, COPD, hyperlipidemia. PAST SURGICAL HISTORY: Total right knee replacement. Neck surgery. CURRENT MEDICATIONS: Levothyroxine, lisinopril, isosorbide, atenolol, omeprazole, gabapentin, oxybutynin, furosemide, Ropinirole, Gabapentin, citrulline, Quetiapine, warfarin, Tradjenta, atorvastatin, vitamin D to supplement, Primidone, oxycodone, , albuterol. SOCIAL HISTORY: The patient quit smoking about 40 years ago. Alcohol consumption none. FAMILY HISTORY: Hypertension, hyperlipidemia, arthritis, sinus problems, sleep apnea, headaches, insomnia, acid reflux, diabetes, thyroid problems, restless legs. REVIEW OF SYSTEMS: Multiple awakenings from sleep. Difficulties to initiate sleep, tiredness and sleepiness during the day. Patient sometimes takes naps during the day. PHYSICAL EXAM: Patient in no distress. BP 137/85, HR 70, RR 16, height 64 inches and a half, weight 184.6 pounds, body mass index 31, temperature 97.8, oxygen saturation at room air 94%. Oropharynx showed extremely low position of soft palate. Mallampati 4. Wide neck is 17.25 inches in circumference. Neck Supple, no JVD. Thyroid is not palpable. LUNGS Clear to percussion and to auscultation. Good air exchange. No wheezing or rhonchi. HEART S1, S2 regular. No murmurs, gallops, or rubs. ABDOMEN: Obese. Soft and nontender. Bowel sounds are present. No organomegaly appreciated. EXTREMITIES No clubbing or cyanosis. SANDER MACHINE Awake, alert, and oriented X3. Cranial nerves 2 to 7 intact. There is no fasciculation or atrophy. noted. No focal deficits observed. IMPRESSION: 1. Multiple awakenings from sleep, extremely low position of soft palate, Mallampati 4, wide neck, excessive daytime sleepiness. [place] Sleepiness Scale is 13. Obstructive sleep apnea-hypopnea syndrome. 2. Mild obesity BMI 31. 3. Hypertension. 4. History of restless legs. 5. Hypothyroidism. 6. Acid reflux. 7. History of atrial fibrillation according to patient. 8. History of chronic obstructive pulmonary disease. 9. Status post total right knee replacement. 10.Status post neck surgery. PLAN: 1. Polysomnography for evaluation of patient's breathing during sleep. 2. CPAP/BiPAP titration if sleep study confirms obstructive sleep apnea-hypopnea syndrome. 3. Preferable position during sleep on the side. 4. No driving if patient feels any sleepiness. 5. I will see patient for follow up visit to explain results of testing and following plan. 6. Stimulus control. Paradoxical intention worry time for treatment of insomnia. Thank you very much for referring this patient for consultation. Sincerely, Yared Banks MD, PhD, FAASM Diplomat of [employer] [employer] [employer] [place] [facility] [place] MMODL / ANDREN: [id number] /
== END ==
LOC: SLEEP 13:20
PROVIDERS: ATTEND Internal Medicine
DX: G47.33 Obstructive sleep apnea (adult) (pediatric) (principal); E66.9 Obesity, unspecified; I10 Essential (primary) hypertension; G25.81 Restless legs syndrome; E03.9 Hypothyroidism, unspecified; K21.9 Gastro-esophageal reflux disease without esophagitis; I48.91 Unspecified atrial fibrillation; J44.9 Chronic obstructive pulmonary disease, unspecified; Z96.651 Presence of right artificial knee joint; Z98.890 Other specified postprocedural states; Z99.89 Dependence on other enabling machines and devices; Z68.31 Body mass index [BMI] 31.0-31.9, adult; Z87.891 Personal history of nicotine dependence; Z79.899 Other long term (current) drug therapy
CPT/HCPCS: 99211

== ENCOUNTER → 2019-01-13 | Outpatient (CLI) | payer MEDICARE ==
[2019-01-13 11:27] LABS: HCT 41.1 % (39.0-53.0); HGB 14.2 gm/dL (13.0-17.5); MCH 35.1 pg (25.0-35.0); MCHC 34.6 g/dL (31.0-37.0); MCV 101.3 fL (80.0-100.0); Macrocytosis Slight; Mean Platelet Volume 8.7; Platelet Count 174 k/uL (150-450); RBC 4.06 m/uL (4.30-5.90); RDW 13.2 % (11.5-15.5); WBC 8.7 k/uL (3.8-10.6)
[2019-01-13 12:52] LABS: Appearance,Urine Clear (Clear); Bilirubin,Urine Negative (Negative); Blood,Urine Negative (Negative); Color,Urine Light Yellow; Glucose,Urine (UA) Trace (Negative); Ketones,Urine Negative (Negative); Leukocyte Esterase,Urine Negative (Negative); Nitrite,Urine Negative (Negative); Protein,Urine Trace (Negative); Specific Gravity,Urine 1.007 (1.001-1.035); Urobilinogen,Urine <2.0 mg/dL (<2.0)
[2019-01-13 16:53] LABS: Iron Saturation 47.62 (15.00-50.00)
[2019-01-13 17:02] LABS: Vitamin D 25 Hydroxy 44.6 ng/mL (30.0-100.0)
[2019-01-13 17:32] LABS: Albumin 4.5 g/dL (3.80-4.90); Albumin/Globulin Ratio 2.37 (1.60-3.17); Anion Gap 7.8 mmol/L (4.00-12.00); Calcium 8.5 mg/dL (8.7-10.3); Carbon Dioxide 25.2 mmol/L (21.6-31.8); Globulin 1.9 g/dL (1.6-3.3); Magnesium 2.6 mg/dL (1.5-2.4); Parathyroid Hormone Intact 125.7 pg/mL (14.0-72.0); Phosphorus 3.2 mg/dL (2.4-5.1); Total Bilirubin 0.2 mg/dL (0.3-1.2); Total Protein 6.4 g/dL (6.2-8.2); Uric Acid 5.5 mg/dL (3.7-8.7)
== END | disposition home or self-care (01) ==
LOC: LABWHC1 10:54
PROVIDERS: ATTEND Nurse Practitioner Family
DX: N18.3 Chronic kidney disease, stage 3 (moderate) (principal); D63.1 Anemia in chronic kidney disease; N39.0 Urinary tract infection, site not specified; R80.9 Proteinuria, unspecified; E21.3 Hyperparathyroidism, unspecified; E55.9 Vitamin D deficiency, unspecified; M10.9 Gout, unspecified
CPT/HCPCS: 36415; 80053; 81003; 82043; 82306; 82570; 82728; 83540; 83550; 83735; 83970; 84100; 84550; 85027

== ENCOUNTER 2019-01-20 20:23 | Emergency (ER) | payer MEDICARE ==
[2019-01-20 20:32] VITALS: PULSE 60; TEMP 98.2
[2019-01-20 21:14] LABS: Basophils # (A) 0.1 k/uL (0-0.2); Basophils % (A) 1 %; Eosinophils # (A) 0.7 k/uL (0-0.7); Eosinophils % (A) 9 %; HCT 38.2 % (39.0-53.0); HGB 13.4 gm/dL (13.0-17.5); Lymphocytes # (A) 1.7 k/uL (1.0-4.8); Lymphocytes % (A) 20 %; MCH 35.3 pg (25.0-35.0); MCHC 35.2 g/dL (31.0-37.0); MCV 100.3 fL (80.0-100.0); Mean Platelet Volume 9.6; Monocytes # (A) 0.4 k/uL (0-1.0); Monocytes % (A) 4 %; Neutrophils # (A) 5.8 k/uL (1.3-7.7); Neutrophils % (A) 66 %; Platelet Count 174 k/uL (150-450); RBC 3.81 m/uL (4.30-5.90); RDW 13.6 % (11.5-15.5); WBC 8.8 k/uL (3.8-10.6)
[2019-01-20 21:24] LABS: Albumin 4.3 g/dL (3.5-5.0); Calcium 8.5 mg/dL (8.4-10.2); Magnesium 2.1 mg/dL (1.6-2.3); Potassium 4.6 mmol/L (3.5-5.1); Total Bilirubin 0.3 mg/dL (0.2-1.3)
[2019-01-20 21:28] LABS: Partial Thromboplastin Time 36.6 sec (22.0-30.0); Prothrombin Time 10.7 sec (9.0-12.0)
--- NOTE | 2019-01-20 21:46 | XR ---
EXAMINATION TYPE: XR chest 2V DATE OF EXAM: 01/20/2019 COMPARISON: 03/02/2018 HISTORY: 78-year-old male with chest pain TECHNIQUE: PA and lateral views FINDINGS: Low lung volumes with crowded vascular markings. Mild interstitial prominence appears to be chronic. Heart upper limits of normal in size. Aorta and pulmonary vasculature within normal limits. Eventrati on anterior right hemidiaphragm. Strandy atelectasis in lung bases. No consolidation or pleural effus ion. IMPRESSION: Low lung volumes and chronic appearing changes. No definite acute process.
[2019-01-21 01:22] VITALS: BP 137/76; RESP 10
--- NOTE | 2019-01-21 02:06 | ED ---
Chest Pain HPI - General Chief Complaint: Chest Pain Stated Complaint: Chest pain Time Seen by Provider: 01/20/19 20:51 Source: patient, family Mode of arrival: ambulatory Limitations: no limitations - History of Present Illness Initial Comments: The patient is an 78-year-old male who presents to emergency room with complaint of chest pain. The patient admits to a substernal chest pressure which started this morning. He did take 2 nitro around noon and his pain did subside. The pain then returned several hours later. He took 2 additional nitro and had his bring him to the emergency department as he has never had to take this amount of medication before. He does admit to previous history of heart catheterization however he is unsure if he has a stent placed in his heart. This was approximately 2 years ago. Admits to a stress test last year which was normal. He denies associated nausea, vomiting or diaphoresis with the chest pain. No ripping or tearing sensation to his back. Denies a pleuritic chest pain. Denies cough, hemoptysis, fevers or chills. Denies any abdominal pain. No changes in his bowel or bladder habits. No history of DVT or PE. No lower extremity swelling. The patient does have a history of A. fib and is on Coumadin. He has been taking his medications as instructed. He takes 5 mg every morning. He did take his medications this morning. Denies any recent medication changes. There are no alleviating, precipitating or modifying factors. - Related Data Home Medications Medication Instructions Recorded Confirmed Isosorbide Mononitrate [Imdur] 30 mg PO DAILY 01/28/14 01/20/19 Oxybutynin Chloride [Ditropan] 5 mg PO TID 01/28/14 01/20/19 Sertraline [Zoloft] 100 mg PO BID 02/18/16 01/20/19 QUEtiapine [SEROquel] 50 mg PO HS 08/09/16 01/20/19 rOPINIRole HCL [Requip] 0.5 mg PO HS 08/20/16 01/20/19 Lisinopril [Zestril] 5 mg PO DAILY 01/21/17 01/20/19 Ergocalciferol (Vitamin D2) 50,000 unit PO WE 04/08/17 01/20/19 [Vitamin D2] Albuterol Inhaler [Ventolin Hfa 2 puff INHALATION RT-Q6H PRN 10/27/17 01/20/19 Inhaler] Primidone [Mysoline] 150 mg PO BID 10/27/17 01/20/19 Warfarin [Coumadin] 5 mg PO DAILY 04/27/18 01/20/19 Albuterol Nebulized [Ventolin 2.5 mg INHALATION RT-TID 12/11/18 01/20/19 Nebulized] Atenolol [Tenormin] 25 mg PO DAILY 12/11/18 01/20/19 Atorvastatin [Lipitor] 40 mg PO DAILY 12/11/18 01/20/19 Calcitriol 0.25 mcg PO TUTH 12/11/18 01/20/19 Calcium Acetate [Phoslo] 667 mg PO PC-SUPPER 12/11/18 01/20/19 Levothyroxine Sodium [Synthroid] 50 mcg PO DAILY 12/11/18 01/20/19 oxyCODONE-APAP 5-325MG [Percocet 1 tab PO DAILY PRN 12/11/18 01/20/19 5-325 mg] Furosemide [Lasix] 40 mg PO DAILY 12/15/18 01/20/19 Gabapentin 600 mg PO BID 12/15/18 01/20/19 Gabapentin 800 mg PO BID 12/15/18 01/20/19 Linagliptin [Tradjenta] 5 mg PO DAILY 12/15/18 01/20/19 Suvorexant [Belsomra] 10 mg PO HS 12/15/18 01/20/19 Previous Rx's Medication Instructions Recorded Omeprazole [PriLOSEC] 40 mg PO -BRKFST #14 capsule. 10/24/16 Allergies Allergy/AdvReac Type Severity Reaction Status Date / Time No Known Allergies Allergy Verified 01/20/19 20:52 Review of Systems ROS Statement: Those systems with pertinent positive or pertinent negative responses have been documented in the HPI. ROS Other: All systems not noted in ROS Statement are negative. EKG Findings - EKG Comments: EKG Findings:: EKG demonstrates a normal sinus rhythm with a ventricular rate of 60. [place] interval 194. QRS 100. QTC 430. No acute ST segment elevations or depressions concerning for ischemic changes. Past Medical History Past Medical History: Atrial Fibrillation, Cancer, Diabetes Mellitus, GERD/Reflux, Hyperlipidemia, Hypertension, Renal Disease, Thyroid Disorder Additional Past Medical History / Comment(s): artificial Left eye, recent bleeding from left eye globe, restless leg sydrome, COLON CANCER, neuropathy, parkinsons, chronic back pain, History of Any Multi-Drug Resistant Organisms: None Reported Past Surgical History: Back Surgery, Bowel Resection, Heart Catheterization, Joint Replacement, Prostate Surgery Additional Past Surgical History / Comment(s): right knee replaced, back sx with titanium gavin Past Anesthesia/Blood Transfusion Reactions: Previous Problems w/ Anesthesia, Motion Sickness Additional Past Anesthesia/Blood Transfusion Reaction / Comment(s): "couldn't move left arm [post anesthesia]" Past Psychological History: Anxiety, Depression Smoking Status: Former smoker Past Alcohol Use History: None Reported Past Drug Use History: None Reported - Past Family History Mother Family Medical History: Cancer, Hyperlipidemia, Hypertension Additional Family Medical History / Comment(s): ca: brain Father Family Medical History: Hyperlipidemia, Hypertension General Exam Limitations: no limitations General appearance: alert, in no apparent distress Head exam: Present: atraumatic, normocephalic, normal inspection Eye exam: Present: normal appearance, PERRL, EOMI. Absent: scleral icterus, conjunctival injection, periorbital swelling ENT exam: Present: normal exam, mucous membranes moist Neck exam: Present: normal inspection. Absent: tenderness, meningismus, lymphadenopathy Respiratory exam: Present: normal lung sounds bilaterally. Absent: respiratory distress, wheezes, rales, rhonchi, stridor Cardiovascular Exam: Present: regular rate, normal rhythm, normal heart sounds. Absent: systolic murmur, diastolic murmur, rubs, gallop, clicks GI/Abdominal exam: Present: soft, normal bowel sounds. Absent: distended, tenderness, guarding, rebound, rigid Extremities exam: Present: normal inspection, full ROM, normal capillary refill. Absent: tenderness, pedal edema, joint swelling, calf tenderness Back exam: Present: normal inspection Neurological exam: Present: alert, oriented X3, CN II-XII intact Psychiatric exam: Present: normal affect, normal mood Skin exam: Present: warm, dry, intact, normal color. Absent: rash Course Vital Signs 01/20/19 01/20/19 01/20/19 20:27 20:48 20:50 Temperature 98.2 F Pulse Rate 60 60 59 L Respiratory 22 17 13 Rate Blood Pressure 142/76 137/76 O2 Sat by Pulse 97 95 Oximetry 01/20/19 01/20/19 01/20/19 21:00 21:10 21:20 Temperature Pulse Rate 60 56 L 57 L Respiratory 11 L 10 L 14 Rate Blood Pressure 137/76 137/76 137/76 O2 Sat by Pulse 94 L 96 95 Oximetry 01/20/19 01/20/19 01/20/19 21:30 21:40 21:50 Temperature Pulse Rate 60 Respiratory 10 L Rate Blood Pressure 137/76 137/76 137/76 O2 Sat by Pulse 94 L Oximetry 01/20/19 01/20/19 01/20/19 22:00 22:10 22:20 Temperature Pulse Rate Respiratory Rate Blood Pressure 137/76 137/76 137/76 O2 Sat by Pulse Oximetry 01/20/19 01/20/19 01/20/19 22:30 22:40 22:50 Temperature Pulse Rate Respiratory Rate Blood Pressure 137/76 137/76 137/76 O2 Sat by Pulse Oximetry 01/20/19 01/20/19 01/20/19 23:00 23:10 23:20 Temperature Pulse Rate Respiratory Rate Blood Pressure 137/76 137/76 137/76 O2 Sat by Pulse Oximetry 01/20/19 01/20/19 01/20/19 23:30 23:40 23:50 Temperature Pulse Rate Respiratory Rate Blood Pressure 137/76 137/76 137/76 O2 Sat by Pulse Oximetry 01/21/19 01/21/19 01/21/19 00:00 00:10 00:20 Temperature Pulse Rate Respiratory Rate Blood Pressure 137/76 137/76 137/76 O2 Sat by Pulse Oximetry 01/21/19 01/21/19 01/21/19 00:30 00:40 00:50 Temperature Pulse Rate Respiratory Rate Blood Pressure 137/76 137/76 137/76 O2 Sat by Pulse Oximetry 01/21/19 01/21/19 01/21/19 01:00 01:10 01:20 Temperature Pulse Rate Respiratory Rate Blood Pressure 137/76 137/76 137/76 O2 Sat by Pulse Oximetry Chest Pain MDM - Differential Diagnosis ACS, PE, Pleurisy-Other Subtherapeutic INR, Coumadin coagulopathy - [facility] Patient was placed into trauma 1. He is hooked up to continuous pulse ox and cardiac monitoring. A 12-lead EKG is performed. IV access is established. Laboratory studies were conducted. The patient is pain-free at this time. Chest x-ray was performed. Upon return of the results I did discuss them with the patient. I did recommend admission to the hospital however the patient adamantly refused. I did discuss risks to include increased morbidity or mortality. Patient understood and was able to recite the risks back to me. He demonstrates capacity to make his own decisions. His is at bedside. She does agree with his decision. The patient is willing to wait for a second troponin. This lab is drawn and is normal. The patient remained symptom-free throughout his entire stay. I did inform the patient that he would be leaving AGAINST MEDICAL ADVICE. The patient agreed to this. I informed him that his Coumadin is subtherapeutic. I did inform the patient that he is at risk for a stroke since he is not therapeutic. He must follow up with his primary care physician for repeat blood draws and management of his Coumadin dosing. His creatinine is 1.8 however this is the patient's baseline. The patient understood this. He needs to return to the emergency department should he agreed to admission or have any new or worsening symptoms. The patient was then discharged AGAINST MEDICAL ADVICE Disposition Clinical Impression: Chest pain Disposition: Left Against Medical Advice Condition: Stable Instructions (If sedation given, give patient instructions): Chest Pain (ED) Additional Instructions: Follow-up with your primary care doctor on Tuesday. Take your Coumadin as directed. They will need to recheck your INR level and adjust your Coumadin dose. Return to the emergency department should you have any new or worsening symptoms. I did recommend that you be admitted to the hospital Is patient prescribed a controlled substance at d/c from ED?: No Referrals: Reilly Higginbotham MD [Primary Care Provider] - 1-2 days Time of Disposition: 02:07
== END 2019-01-21 02:25 | disposition left against medical advice (07) ==
LOC: EC 20:23
DX: R07.89 Other chest pain (principal); I48.91 Unspecified atrial fibrillation; E78.5 Hyperlipidemia, unspecified; E11.40 Type 2 diabetes mellitus with diabetic neuropathy, unspecified; I10 Essential (primary) hypertension; E07.9 Disorder of thyroid, unspecified; G25.81 Restless legs syndrome; F41.9 Anxiety disorder, unspecified; F32.9 Major depressive disorder, single episode, unspecified; Z95.818 Presence of other cardiac implants and grafts; Z96.651 Presence of right artificial knee joint; Z85.038 Personal history of other malignant neoplasm of large intestine; Z87.891 Personal history of nicotine dependence; Z79.01 Long term (current) use of anticoagulants; Z79.890 Hormone replacement therapy; Z79.84 Long term (current) use of oral hypoglycemic drugs; Z79.899 Other long term (current) drug therapy
CPT/HCPCS: 36415; 71046; 80053; 83735; 83880; 84484; 85025; 85610; 85730; 93005; 99285

== ENCOUNTER 2019-01-28 18:24 | Observation (INO) | payer MEDICARE ==
--- NOTE | 2019-01-28 19:01 | ED ---
General Adult HPI - General Chief complaint: Chest Pain Stated complaint: CHEST PAIN Time Seen by Provider: 01/28/19 18:37 Source: patient Mode of arrival: ambulatory Limitations: no limitations - History of Present Illness Initial comments: Dictation was produced using [employer] dictation software. please excuse any grammatical, word or spelling errors. Chief Complaint: 78-year-old male with chief complaint of chest pain. History of Present Illness: He-year-old male past medical history of atrial fibrillation, diabetes, dyslipidemia, hypertension presents with chest pain. Patient reports that today he's been having intermittent episodes of dull substernal chest pressure with radiation down the left upper extremity. No associated diaphoresis. No associated nausea. She was seen here in emergency department last week for similar complaint. He was discharged at that time. 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 Patient had cardiac workup performed but however he left AGAINST MEDICAL ADVICE. Patient is pain-free at this time. It has any cough, chills or night sweats. No constitutional symptoms. No vomiting or diarrhea. The ROS documented in this emergency department record has been reviewed and confirmed by me. Those systems with pertinent positive or negative responses have been documented in the HPI. All other systems are other negative and/or noncontributory. PHYSICAL EXAM: General Impression: Alert and oriented x3, not in acute distress HEENT: Normocephalic atraumatic, extra-ocular movements intact, pupils equal and reactive to light bilaterally, mucous membranes moist. Cardiovascular: Heart regular rate and rhythm, S1&S2 audible, no murmurs, rubs or gallops Chest: Lungs clear to auscultation bilaterally, no rhonchi, no wheeze, no rales Abdomen: Bowel sounds present, abdomen soft, non-tender, non-distended, no organomegaly Musculoskeletal: Pulses present and equal in all extremities, no peripheral edema Motor: no focal deficits noted Neurological: CN II-XII grossly intact, no focal motor or sensory deficits noted Skin: Intact with no visualized rashes Psych: Normal affect and mood ED course: 78-year-old male presents chief complaint chest pain. Vital signs upon arrival shows findings within acceptable limits.Clinical presentation consistent with atypical chest pain with typical features. Patient has a lot of risk factors. Laboratory evaluation obtained. CBC coag panel metabolic panel was obtained. Patient has slight elevation of renal markers which appear to be patient's baseline. Cardiac enzymes negative. Chest x-ray shows subtle airspace disease which may represent early pneumonia. Patient denies any cough or pulmonary infectious type symptoms.. Patient reevaluated and denies any symptoms. Patient given aspirin. Patient case assessed with Dr. Roberts who is willing to accept admission. Patient be admitted for suture troponin and cardiology consultation. EKG interpretation: Ventricular rate 63, normal sinus rhythm,. Interval 194, QRS 100, QTC 421. No MT prolongation, no QTC prolongation, no ST or T-wave changes noted. EKG compared to 01/20/2019 showing no changes. Overall, this EKG is unremarkable - Related Data Home Medications Medication Instructions Recorded Confirmed Isosorbide Mononitrate [Imdur] 30 mg PO DAILY 01/28/14 01/28/19 Oxybutynin Chloride [Ditropan] 5 mg PO TID 01/28/14 01/28/19 Sertraline [Zoloft] 100 mg PO BID 02/18/16 01/28/19 QUEtiapine [SEROquel] 50 mg PO HS 08/09/16 01/28/19 rOPINIRole HCL [Requip] 0.5 mg PO HS 08/20/16 01/28/19 Lisinopril [Zestril] 5 mg PO DAILY 01/21/17 01/28/19 Ergocalciferol (Vitamin D2) 50,000 unit PO WE 04/08/17 01/28/19 [Vitamin D2] Albuterol Inhaler [Ventolin Hfa 2 puff INHALATION RT-Q6H PRN 10/27/17 01/28/19 Inhaler] Primidone [Mysoline] 150 mg PO BID 10/27/17 01/28/19 Albuterol Nebulized [Ventolin 2.5 mg INHALATION RT-TID 12/11/18 01/28/19 Nebulized] Atenolol [Tenormin] 25 mg PO DAILY 12/11/18 01/28/19 Atorvastatin [Lipitor] 40 mg PO DAILY 12/11/18 01/28/19 Calcitriol 0.25 mcg PO TUTH 12/11/18 01/28/19 Calcium Acetate [Phoslo] 667 mg PO PC-SUPPER 12/11/18 01/28/19 Levothyroxine Sodium [Synthroid] 50 mcg PO DAILY 12/11/18 01/28/19 oxyCODONE-APAP 5-325MG [Percocet 1 tab PO DAILY PRN 12/11/18 01/28/19 5-325 mg] Furosemide [Lasix] 40 mg PO DAILY 12/15/18 01/28/19 Gabapentin 600 mg PO BID 12/15/18 01/28/19 Gabapentin 800 mg PO BID 12/15/18 01/28/19 Linagliptin [Tradjenta] 5 mg PO DAILY 12/15/18 01/28/19 Suvorexant [Belsomra] 10 mg PO HS 12/15/18 01/28/19 Aspirin 81 mg PO DAILY 01/28/19 01/28/19 Previous Rx's Medication Instructions Recorded Omeprazole [PriLOSEC] 40 mg PO AC-BRKFST #14 capsule. 10/24/16 Allergies Allergy/AdvReac Type Severity Reaction Status Date / Time No Known Allergies Allergy Verified 01/28/19 18:53 Review of Systems ROS Statement: Those systems with pertinent positive or pertinent negative responses have been documented in the HPI. ROS Other: All systems not noted in ROS Statement are negative. Past Medical History Past Medical History: Atrial Fibrillation, Cancer, Diabetes Mellitus, GERD/Reflux, Hyperlipidemia, Hypertension, Renal Disease, Thyroid Disorder Additional Past Medical History / Comment(s): artificial Left eye, recent bleeding from left eye globe, restless leg sydrome, COLON CANCER, neuropathy, parkinsons, chronic back pain, History of Any Multi-Drug Resistant Organisms: None Reported Past Surgical History: Back Surgery, Bowel Resection, Heart Catheterization, Joint Replacement, Prostate Surgery Additional Past Surgical History / Comment(s): right knee replaced, back sx with titanium gavin Past Anesthesia/Blood Transfusion Reactions: Previous Problems w/ Anesthesia, Motion Sickness Additional Past Anesthesia/Blood Transfusion Reaction / Comment(s): "couldn't move left arm [post anesthesia]" Past Psychological History: Anxiety, Depression Smoking Status: Former smoker Past Alcohol Use History: None Reported Past Drug Use History: None Reported - Past Family History Mother Family Medical History: Cancer, Hyperlipidemia, Hypertension Additional Family Medical History / Comment(s): ca: brain Father Family Medical History: Hyperlipidemia, Hypertension General Exam Limitations: no limitations Course Vital Signs 01/28/19 01/28/19 18:30 18:58 Temperature 98.5 F Pulse Rate 60 Pulse Rate [ 62 [employer] ] Respiratory 18 Rate Blood Pressure 173/75 O2 Sat by Pulse 96 Oximetry Medical Decision Making - Lab Data Result diagrams: 01/28/19 19:23 01/28/19 19:23 Lab Results 01/28/19 01/28/19 01/28/19 Range/Units 19:23 19:23 19:23 WBC 9.5 (3.8-10.6) k/uL RBC 3.80 L (4.30-5.90) m/uL Hgb 12.9 L (13.0-17.5) gm/dL Hct 37.8 L (39.0-53.0) % MCV 99.6 (80.0-100.0) fL MCH 33.9 (25.0-35.0) pg MCHC 34.0 (31.0-37.0) g/dL RDW 13.3 (11.5-15.5) % Plt Count 165 (150-450) k/uL Neutrophils % 72 % Lymphocytes % 18 % Monocytes % 4 % Eosinophils % 5 % Basophils % 1 % Neutrophils # 6.8 (1.3-7.7) k/uL Lymphocytes # 1.7 (1.0-4.8) k/uL Monocytes # 0.4 (0-1.0) k/uL Eosinophils # 0.5 (0-0.7) k/uL Basophils # 0.1 (0-0.2) k/uL PT 10.6 (9.0-12.0) sec INR 1.0 (<1.2) APTT 37.3 H (22.0-30.0) sec Sodium 138 (137-145) mmol/L Potassium 5.0 (3.5-5.1) mmol/L Chloride 107 (98-107) mmol/L Carbon Dioxide 22 (22-30) mmol/L Anion Gap 9 mmol/L BUN 30 H (9-20) mg/dL Creatinine 1.97 H (0.66-1.25) mg/dL Est GFR (CKD-EPI)AfAm 36 (>60 ml/min/1.73 sqM) Est GFR (CKD-EPI)NonAf 31 (>60 ml/min/1.73 sqM) Glucose 171 H (74-99) mg/dL Calcium 8.5 (8.4-10.2) mg/dL Magnesium 2.4 H (1.6-2.3) mg/dL Total Bilirubin 0.3 (0.2-1.3) mg/dL AST 21 (17-59) U/L ALT 16 L (21-72) U/L Alkaline Phosphatase 216 H (38-126) U/L Troponin I (0.000-0.034) ng/mL Total Protein 6.8 (6.3-8.2) g/dL Albumin 4.2 (3.5-5.0) g/dL 01/28/19 Range/Units 19:23 WBC (3.8-10.6) k/uL RBC (4.30-5.90) m/uL Hgb (13.0-17.5) gm/dL Hct (39.0-53.0) % MCV (80.0-100.0) fL MCH (25.0-35.0) pg MCHC (31.0-37.0) g/dL RDW (11.5-15.5) % Plt Count (150-450) k/uL Neutrophils % % Lymphocytes % % Monocytes % % Eosinophils % % Basophils % % Neutrophils # (1.3-7.7) k/uL Lymphocytes # (1.0-4.8) k/uL Monocytes # (0-1.0) k/uL Eosinophils # (0-0.7) k/uL Basophils # (0-0.2) k/uL PT (9.0-12.0) sec INR (<1.2) APTT (22.0-30.0) sec Sodium (137-145) mmol/L Potassium (3.5-5.1) mmol/L Chloride (98-107) mmol/L Carbon Dioxide (22-30) mmol/L Anion Gap mmol/L BUN (9-20) mg/dL Creatinine (0.66-1.25) mg/dL Est GFR (CKD-EPI)AfAm (>60 ml/min/1.73 sqM) Est GFR (CKD-EPI)NonAf (>60 ml/min/1.73 sqM) Glucose (74-99) mg/dL Calcium (8.4-10.2) mg/dL Magnesium (1.6-2.3) mg/dL Total Bilirubin (0.2-1.3) mg/dL AST (17-59) U/L ALT (21-72) U/L Alkaline Phosphatase (38-126) U/L Troponin I <0.012 (0.000-0.034) ng/mL Total Protein (6.3-8.2) g/dL Albumin (3.5-5.0) g/dL Disposition Clinical Impression: Chest pain Disposition: ADMITTED IP TO THIS HOSP Condition: Fair Referrals: Reilly Higginbothma MD [Primary Care Provider] - 1-2 days Decision Time: 20:57
[2019-01-28 19:39] LABS: Basophils # (A) 0.1 k/uL (0-0.2); Basophils % (A) 1 %; Eosinophils # (A) 0.5 k/uL (0-0.7); Eosinophils % (A) 5 %; HCT 37.8 % (39.0-53.0); HGB 12.9 gm/dL (13.0-17.5); Lymphocytes # (A) 1.7 k/uL (1.0-4.8); Lymphocytes % (A) 18 %; MCH 33.9 pg (25.0-35.0); MCV 99.6 fL (80.0-100.0); Mean Platelet Volume 9.2; Monocytes # (A) 0.4 k/uL (0-1.0); Monocytes % (A) 4 %; Neutrophils # (A) 6.8 k/uL (1.3-7.7); Neutrophils % (A) 72 %; Platelet Count 165 k/uL (150-450); RDW 13.3 % (11.5-15.5); WBC 9.5 k/uL (3.8-10.6)
--- NOTE | 2019-01-28 19:43 | XR ---
EXAMINATION TYPE: XR chest 2V DATE OF EXAM: 01/28/2019 COMPARISON: NONE HISTORY: Chest pain and arm numbness TECHNIQUE: Frontal and lateral views of the chest are obtained. FINDINGS: Low lung volumes slightly limit evaluation. Airspace disease in the left lower lung. No pl eural effusion, or pneumothorax seen. The cardiac silhouette size is within normal limits. The oss eous structures are intact. IMPRESSION: Subtle airspace disease in the left lower lung. This may represent early pneumonia. Serial radiograph s are recommended.
[2019-01-28 19:46] LABS: Partial Thromboplastin Time 37.3 sec (22.0-30.0); Prothrombin Time 10.6 sec (9.0-12.0)
[2019-01-28 19:51] LABS: Albumin 4.2 g/dL (3.5-5.0); Calcium 8.5 mg/dL (8.4-10.2); Magnesium 2.4 mg/dL (1.6-2.3); Total Bilirubin 0.3 mg/dL (0.2-1.3); Total Protein 6.8 g/dL (6.3-8.2)
[2019-01-28] MEDS ORDERED: ASPIRIN 81 MG PO STA (20:54)
[2019-01-28] MEDS ORDERED: NITROGLYCERIN SL TABS 0.4 MG TAB SUBLINGUAL PRN (20:54)
[2019-01-29 00:07] LABS: Cholesterol 173 mg/dL (<200); HDL Cholesterol 26 mg/dL (40-60)
[2019-01-29] MEDS ORDERED: ALBUTEROL NEBULIZED 2.5 MG/3 ML INHALATION PRN (00:07)
[2019-01-29] MEDS ORDERED: QUEtiapine 50 MG TAB PO SCH (00:15)
[2019-01-29] MEDS ORDERED: SUVOREXANT 10 MG PO SCH (00:15)
[2019-01-29 00:22] LABS: Triglycerides 695 mg/dL (<150)
[2019-01-29] MEDS: SERTRALINE 100 MG TAB PO SCH ×2 (01:00→11:44)
[2019-01-29] MEDS: PRIMIDONE 50 MG TAB PO SCH ×2 (01:00→11:43)
[2019-01-29] MEDS: OXYBUTYNIN CHLORIDE 5 MG TAB PO SCH ×2 (01:16→11:43)
[2019-01-29 06:50] LABS: Glucose,Whole Blood 178 mg/dL (75-99)
[2019-01-29] MEDS: ALBUTEROL NEBULIZED 2.5 MG/3 ML INHALATION SCH ×2 (07:07→13:21)
[2019-01-29] MEDS ORDERED: PANTOPRAZOLE 40 MG TABLET PO SCH (07:30)
[2019-01-29 08:15] VITALS: RESP 18
[2019-01-29] MEDS ORDERED: CAFFEINE CITRATE 60 MG/3 ML VIAL IV PRN ×2 (08:17→08:28)
[2019-01-29] MEDS ORDERED: AMINOPHYLLINE 500 MG/20 ML VIAL IV PRN ×2 (08:17→08:28)
[2019-01-29] MEDS ORDERED: REGADENOSON 0.4 MG/5 ML SYRINGE IV ONE (08:17)
[2019-01-29] MEDS ORDERED: DIPYRIDAMOLE IV ONE (09:00)
[2019-01-29] MEDS ORDERED: SODIUM CHLORIDE 0.9% IV ONE (09:00)
[2019-01-29] MEDS ORDERED: ASPIRIN 325 MG TAB PO SCH (09:00)
--- NOTE | 2019-01-29 09:03 | CONS ---
CONSULTATION CHIEF COMPLAINT: Chest pain. Sunday is an 78-year-old gentleman with history of atrial fibrillation, hypertension, hypothyroidism, dyslipidemia who is admitted to hospital complaining of chest pain. He describes it as precordial chest pain that is sharp, mild intensity, intermittent that radiated to left upper arm. The patient was in the emergency room a week ago and apparently left against medical advice. At the time of my evaluation this morning, he is chest pain-free and hemodynamically stable. EKG shows sinus rhythm with nonspecific intraventricular conduction delay. Three sets of troponins are negative. His triglycerides are elevated at 695. I advised the patient to undergo a stress test for further evaluation and if the stress test shows ischemia, I will ask Dr. Green to do a cardiac cath. PAST MEDICAL HISTORY: Significant for atrial fibrillation, hypertension, dyslipidemia, hypothyroidism. MEDICATIONS: Medications at home include Requip, Percocet, Zoloft, Seroquel, Mysoline, Ditropan, Prilosec, Zestril, Tradjenta, Imdur, Synthroid, Neurontin, Lasix. Lipitor and albuterol. ALLERGIES: There are no known drug allergies. FAMILY HISTORY: Negative for premature coronary artery disease. SOCIAL HISTORY: Negative for smoking, EtOH abuse, or drug abuse. REVIEW OF SYSTEMS: HEENT is unremarkable. CARDIAC: As described above. RESPIRATORY: As described above. GI: Negative. GENITOURINARY: Negative. ALLERGY/IMMUNOLOGY: Negative. SKIN: Negative. MUSCULOSKELETAL: Significant for arthritis. PSYCHOSOCIAL: Negative. ENDOCRINE: Negative. DERM: Negative. CONSTITUTIONAL: Negative. ONCOLOGICAL: Negative. Rest of the system review is not relevant. PHYSICAL EXAMINATION: On exam, patient is comfortable at rest. Afebrile. Vital signs are stable. There is no jugular venous distention. Carotid upstroke is normal. There is no bruit. Chest exam reveals good air entry bilaterally. Heart exam reveals first and second heart sounds. No gallop. Has a systolic murmur at the left lower sternal border. Abdomen is soft. Examination of extremities did not reveal edema. Peripheral pulses are felt. LABS: Labs show that cardiac enzymes are negative. EKG does not reveal acute ischemic changes. ASSESSMENT: Precordial chest pain. PLAN: Patient will have an echocardiogram and stress test for further evaluation. If necessary, he will undergo cardiac catheterization. MMODL / IJN: [id number] /
[2019-01-29] MEDS ORDERED: AMINOPHYLLINE 250 MG/10 ML VIAL IV ONE (10:18)
--- NOTE | 2019-01-29 11:34 | ECHOF ---
Referral Reason: MEASUREMENTS -------- HEIGHT: 170.2 cm WEIGHT: 81.6 kg BP: IVSd: 1.4 cm (0.6 - 1.1) LVIDd: 3.4 cm (3.9 - 5.3) LVPWd: 1.6 cm (0.6 - 1.1) IVSs: 1.4 cm LVIDs: 1.3 cm LVPWs: 1.7 cm LAESV Index (A-L): 16.73 ml/m Ao Diam: 2.5 cm (2.0 - 3.7) AV Cusp: 1.5 cm (1.5 - 2.6) LA Diam: 3.2 cm (2.7 - 3.8) MV EXCURSION: 17.007 mm (> 18.000) MV EF SLOPE: 102 mm/s (70 - 150) EPSS: 0.6 cm MV E Burton: 1.04 m/s MV DecT: 159 ms MV A Burton: 1.11 m/s MV E/A Ratio: 0.94 RAP: 5.00 mmHg RVSP: 10.49 mmHg FINDINGS -------- Sinus rhythm. This was a technically difficult study with suboptimal views. The left ventricular size is normal. There is moderate concentric left ventricular hypertrophy. O verall left ventricular systolic function is normal with, an EF between 55 - 60 %. The right ventricle is normal in size. Normal LA size by volume 22+/-6 ml/m2. The right atrial size is normal. Lumason used Interatrial and interventricular septum intact. The aortic valve is trileaflet and appears structurally normal. There is trace mitral regurgitation. Trace tricuspid regurgitation present. The right ventricular systolic pressure, as measured by Dopp ler, is 10.49mmHg. There is no pulmonic regurgitation present. The aortic root size is normal. IVC Not well visulized. There is no pericardial effusion. CONCLUSIONS -------- 1. Sinus rhythm. 2. This was a technically difficult study with suboptimal views. 3. The left ventricular size is normal. 4. There is moderate concentric left ventricular hypertrophy. 5. Overall left ventricular systolic function is normal with, an EF between 55 - 60 %. 6. The right ventricle is normal in size. 7. Normal LA size by volume 22+/-6 ml/m2. 8. The right atrial size is normal. 9. Lumason used 10. Interatrial and interventricular septum intact. 11. The aortic valve is trileaflet and appears structurally normal. 12. There is trace mitral regurgitation. 13. Trace tricuspid regurgitation present. 14. The right ventricular systolic pressure, as measured by Doppler, is 10.49mmHg. 15. There is no pulmonic regurgitation present. 16. The aortic root size is normal. 17. IVC Not well visulized. 18. There is no pericardial effusion. ONLINE RETAILER: Zaida Miguel RDCS
[2019-01-29 11:56] LABS: Glucose,Whole Blood 192 mg/dL (75-99)
[2019-01-29 12:07] VITALS: BP 167/84; TEMP 98
--- NOTE | 2019-01-29 12:27 | P.HPIM ---
History of Present Illness 78-year-old male presented the emergency room with complaints of chest pain. States he took 3 nitro at home they relief pain for a while and then the pain returned. Patient states she had shortness of breath and not left arm heaviness with some nausea. Patient does has a history of atrial fib intermittent. Patient is a diabetic with hyperlipidemia and hypertension. Also has renal disease and history of colon cancer Review of Systems Cardiovascular: Reports chest pain Respiratory: Reports dyspnea Gastrointestinal: Reports nausea Past Medical History Past Medical History: Atrial Fibrillation, Cancer, Diabetes Mellitus, GERD/Reflux, Hyperlipidemia, Hypertension, Renal Disease, Thyroid Disorder Additional Past Medical History / Comment(s): artificial Left eye, recent bleeding from left eye globe, restless leg sydrome, COLON CANCER, neuropathy, parkinsons, chronic back pain, History of Any Multi-Drug Resistant Organisms: None Reported Past Surgical History: Back Surgery, Bowel Resection, Heart Catheterization, Joint Replacement, Prostate Surgery Additional Past Surgical History / Comment(s): right knee replaced, back sx with titanium gavin Past Anesthesia/Blood Transfusion Reactions: Previous Problems w/ Anesthesia, Motion Sickness Additional Past Anesthesia/Blood Transfusion Reaction / Comment(s): "couldn't move left arm [post anesthesia]" Past Psychological History: Anxiety, Depression Smoking Status: Former smoker Past Alcohol Use History: None Reported Additional Past Alcohol Use History / Comment(s): smoking: started 1961 stopped 1974 Past Drug Use History: None Reported - Past Family History Mother Family Medical History: Cancer, Hyperlipidemia, Hypertension Additional Family Medical History / Comment(s): ca: brain Father Family Medical History: Hyperlipidemia, Hypertension Medications and Allergies Home Medications Medication Instructions Recorded Confirmed Type Isosorbide Mononitrate [Imdur] 30 mg PO DAILY 01/28/14 01/28/19 History Oxybutynin Chloride [Ditropan] 5 mg PO TID 01/28/14 01/28/19 History Sertraline [Zoloft] 100 mg PO BID 02/18/16 01/28/19 History QUEtiapine [SEROquel] 50 mg PO HS 08/09/16 01/28/19 History rOPINIRole HCL [Requip] 0.5 mg PO HS 08/20/16 01/28/19 History Omeprazole [PriLOSEC] 40 mg PO KEKFST #14 capsule. 10/24/16 01/28/19 Rx Lisinopril [Zestril] 5 mg PO DAILY 01/21/17 01/28/19 History Ergocalciferol (Vitamin D2) 50,000 unit PO WE 04/08/17 01/28/19 History [Vitamin D2] Albuterol Inhaler [Ventolin Hfa 2 puff INHALATION RT-Q6H PRN 10/27/17 01/28/19 History Inhaler] Primidone [Mysoline] 150 mg PO BID 10/27/17 01/28/19 History Albuterol Nebulized [Ventolin 2.5 mg INHALATION RT-TID 12/11/18 01/28/19 History Nebulized] Atenolol [Tenormin] 25 mg PO DAILY 12/11/18 01/28/19 History Atorvastatin [Lipitor] 40 mg PO DAILY 12/11/18 01/28/19 History Calcitriol 0.25 mcg PO TUTH 12/11/18 01/28/19 History Calcium Acetate [Phoslo] 667 mg PO PC-SUPPER 12/11/18 01/28/19 History Levothyroxine Sodium [Synthroid] 50 mcg PO DAILY 12/11/18 01/28/19 History oxyCODONE-APAP 5-325MG [Percocet 1 tab PO DAILY PRN 12/11/18 01/28/19 History 5-325 mg] Furosemide [Lasix] 40 mg PO DAILY 12/15/18 01/28/19 History Gabapentin 600 mg PO BID 12/15/18 01/28/19 History Gabapentin 800 mg PO BID 12/15/18 01/28/19 History Linagliptin [Tradjenta] 5 mg PO DAILY 12/15/18 01/28/19 History Suvorexant [Belsomra] 10 mg PO HS 12/15/18 01/28/19 History Aspirin 81 mg PO DAILY 01/28/19 01/28/19 History Allergies Allergy/AdvReac Type Severity Reaction Status Date / Time No Known Allergies Allergy Verified 01/28/19 18:53 Physical Exam Vitals: Vital Signs Temp Pulse Pulse Pulse Resp BP BP 01/29/19 12:00 73 55 L 18 01/29/19 11:45 98.0 F 63 18 01/29/19 08:00 73 55 L 18 01/29/19 07:35 98.1 F 55 L 18 01/29/19 04:00 97.8 F 73 15 163/79 01/29/19 03:57 57 L 15 01/29/19 00:00 57 L 15 01/28/19 23:22 148/65 01/28/19 23:01 98.0 F 57 L 15 166/72 01/28/19 22:37 98.2 F 58 L 18 142/87 01/28/19 21:10 98 F 56 L 18 157/77 01/28/19 19:30 62 18 160/87 01/28/19 18:58 62 01/28/19 18:30 98.5 F 60 18 173/75 BP Pulse Ox 01/29/19 12:00 01/29/19 11:45 167/84 99 01/29/19 08:00 01/29/19 07:35 144/81 97 01/29/19 04:00 97 01/29/19 03:57 01/29/19 00:00 01/28/19 23:22 01/28/19 23:01 98 01/28/19 22:37 98 01/28/19 21:10 98 01/28/19 19:30 98 01/28/19 18:58 01/28/19 18:30 96 Intake and Output 01/28/19 01/29/19 01/29/19 22:59 06:59 14:59 Intake Total 240 Balance 240 Intake: Oral 240 Other: Voiding Method Toilet Toilet # Voids 1 1 Weight 81.647 kg 81.647 kg - Constitutional General appearance: mild distress - EENT Artificial left eye ENT: normal oropharynx Ears: bilateral: normal - Neck Neck: normal ROM - Respiratory Respiratory: bilateral: CTA - Cardiovascular Rhythm: regular - Gastrointestinal General gastrointestinal: soft - Integumentary Integumentary: normal - Neurologic Neurologic: CNII-XII intact - Musculoskeletal Musculoskeletal: gait normal - Psychiatric Psychiatric: A&O x's 3, appropriate affect, intact judgment & insight Results CBC & Chem 7: 01/28/19 19:23 01/28/19 19:23 Labs: Abnormal Lab Results - Last 24 Hours (Table) 01/28/19 01/28/19 01/28/19 Range/Units 19:23 19:23 19:23 RBC 3.80 L (4.30-5.90) m/uL Hgb 12.9 L (13.0-17.5) gm/dL Hct 37.8 L (39.0-53.0) % APTT 37.3 H (22.0-30.0) sec BUN 30 H (9-20) mg/dL Creatinine 1.97 H (0.66-1.25) mg/dL Glucose 171 H (74-99) mg/dL POC Glucose (mg/dL) (75-99) mg/dL Magnesium 2.4 H (1.6-2.3) mg/dL ALT 16 L (21-72) U/L Alkaline Phosphatase 216 H (38-126) U/L Triglycerides (<150) mg/dL HDL Cholesterol (40-60) mg/dL 01/28/19 01/29/19 01/29/19 Range/Units 19:23 06:45 11:36 RBC (4.30-5.90) m/uL Hgb (13.0-17.5) gm/dL Hct (39.0-53.0) % APTT (22.0-30.0) sec BUN (9-20) mg/dL Creatinine (0.66-1.25) mg/dL Glucose (74-99) mg/dL POC Glucose (mg/dL) 178 H 192 H (75-99) mg/dL Magnesium (1.6-2.3) mg/dL ALT (21-72) U/L Alkaline Phosphatase (38-126) U/L Triglycerides 695 H (<150) mg/dL HDL Cholesterol 26 L (40-60) mg/dL Chest x-ray: report reviewed Thrombosis Risk Factor Assmnt - Choose All That Apply Any of the Below Risk Factors Present?: Yes Each Factor Represents 1 point: Obesity (BMI >25) Other Risk Factors: Yes Each Risk Factor Represents 3 Points: Age 75 years or older Other congenital or acquired thrombophilia - If yes, enter type in comment: No Thrombosis Risk Factor Assessment Total Risk Factor Score: 4 Thrombosis Risk Factor Assessment Level: Moderate Risk Assessment and Plan Plan: Assessment Chest pain troponin negative 3 Atrial fib paroxysmal intermittent Diabetes type 2 GERD Hypertension Hyperlipidemia Renal disease Hypothyroidism History of colon cancer Plan Patient has had stress test awaiting report from cardiology Hopeful discharge soon
--- NOTE | 2019-01-29 12:34 | EST ---
EXERCISE STRESS AGE: 78 SEX: M HT: 5'7" WT: 180 PROTOCOL: Persantine Cardiolite Stress Test HEART RATE REST: 59 BLOOD PRESSURE REST: 144/81 MAXIMUM HEART RATE ACHIEVED: 86 MAXIMUM BLOOD PRESSURE: 162/79 85% MPHR: 119 100% MPHR: 140 INDICATIONS: Chest tightness CLINICAL INFORMATION: Baseline EKG shows sinus rhythm, normal axis, normal intervals. Patient was given intravenous Persantine as per protocol. Did not have chest pain or diagnostic ST- segment depression. CONCLUSION: 1. Negative stress test by EKG criteria. 2. Cardiolite portion of the stress test will be reported separately. MMODL / IJN: [id number] /
--- NOTE | 2019-01-29 13:10 | NM ---
EXAMINATION TYPE: NM stress persantine cardiolite DATE OF EXAM: 01/29/2019 COMPARISON: 02/28/2013 HISTORY: Chest pain TECHNIQUE: After the intravenous administration of 9.5 mCi Tc 99m Sestamibi - Cardiolite resting SPE CT images acquired 45 minutes post injection. The patient received 46.5 mg Persantine and 100 mg of Aminophyllin. 24.8 mCi Tc 99m Sestamibi - Stres s images obtained 45 minutes post injection FINDINGS: No fixed or reversible perfusion defects are evident. Gated wall motion appears normal. The ejection fraction of 61% is normal. IMPRESSION: 1. No stress-induced ischemic changes.
[2019-01-29 13:35] VITALS: PULSE 78
[2019-01-29] MEDS ORDERED: CALCIUM CARBONATE 500 MG CHEWABLE PO PRN (13:41)
[2019-01-29] MEDS ORDERED: ACETAMINOPHEN TAB 325 MG TAB PO PRN (13:41)
--- NOTE | 2019-01-29 18:10 | P.DS ---
Providers Date of admission: 01/28/19 20:56 Expected date of discharge: 01/29/19 Attending physician: Reilly Higginbotham Consults: 01/28/19 20:54 Consult Physician Urgent Consulting Provider: Feliciano Green Consult Reason/Comments: chest pain Do you want consulting provider notified?: Yes Primary care physician: Reilly Higginbotham [facility] Course: 78-year-old male presented to the emergency room with complaints of chest pain shortness breath left arm heaviness with nausea patient stated he took nitroglycerin 3 had short amount of relief. Patient was evaluated by cardiology they did Lexiscan negative stress test reported patient cleared for discharge Assessment Chest pain troponin negative 3 negative stress tests Patient atrial fibrillation paroxysmal intermittent Diabetes type 2 GERD History of colon cancer with resection Hypertension Hyperlipidemia History of renal disease Hypothyroidism Plan Follow-up with family physician Dr. Reilly Higginbotham and cardiology Patient Condition at Discharge: Fair Plan - Discharge Summary New Discharge Prescriptions: New Nitroglycerin Sl Tabs [Nitrostat] 0.4 mg SUBLINGUAL Q5M PRN tab PRN Reason: Chest Pain Acetaminophen Tab [Tylenol] 650 mg PO Q6HR PRN tab PRN Reason: Fever And/ Or Pain Continue Oxybutynin Chloride [Ditropan] 5 mg PO TID Isosorbide Mononitrate [Imdur] 30 mg PO DAILY Sertraline [Zoloft] 100 mg PO BID QUEtiapine [SEROquel] 50 mg PO HS rOPINIRole HCL [Requip] 0.5 mg PO HS Omeprazole [PriLOSEC] 40 mg PO AC-BRKFST #14 capsule. Lisinopril [Zestril] 5 mg PO DAILY Ergocalciferol (Vitamin D2) [Vitamin D2] 50,000 unit PO WE Albuterol Inhaler [Ventolin Hfa Inhaler] 2 puff INHALATION RT-Q6H PRN PRN Reason: Shortness Of Breath Primidone [Mysoline] 150 mg PO BID Albuterol Nebulized [Ventolin Nebulized] 2.5 mg INHALATION RT-TID oxyCODONE-APAP 5-325MG [Percocet 5-325 mg] 1 tab PO DAILY PRN PRN Reason: Pain Levothyroxine Sodium [Synthroid] 50 mcg PO DAILY Calcium Acetate [PhosLo] 667 mg PO PC-SUPPER Calcitriol 0.25 mcg PO TUTH Atorvastatin [Lipitor] 40 mg PO DAILY Atenolol [Tenormin] 25 mg PO DAILY Linagliptin [Tradjenta] 5 mg PO DAILY Suvorexant [Belsomra] 10 mg PO HS Gabapentin 600 mg PO BID Furosemide [Lasix] 40 mg PO DAILY Aspirin 81 mg PO DAILY Discontinued Gabapentin 800 mg PO BID Discharge Medication List Isosorbide Mononitrate [Imdur] 30 mg PO DAILY 01/28/14 [History] Oxybutynin Chloride [Ditropan] 5 mg PO TID 01/28/14 [History] Sertraline [Zoloft] 100 mg PO BID 02/18/16 [History] QUEtiapine [SEROquel] 50 mg PO HS 08/09/16 [History] rOPINIRole HCL [Requip] 0.5 mg PO HS 08/20/16 [History] Omeprazole [PriLOSEC] 40 mg PO KEKFSJunior #14 capsule. 10/24/16 [Rx] Lisinopril [Zestril] 5 mg PO DAILY 01/21/17 [History] Ergocalciferol (Vitamin D2) [Vitamin D2] 50,000 unit PO WE 04/08/17 [History] Albuterol Inhaler [Ventolin Hfa Inhaler] 2 puff INHALATION RT-Q6H PRN 10/27/17 [History] Primidone [Mysoline] 150 mg PO BID 10/27/17 [History] Albuterol Nebulized [Ventolin Nebulized] 2.5 mg INHALATION RT-TID 12/11/18 [History] Atenolol [Tenormin] 25 mg PO DAILY 12/11/18 [History] Atorvastatin [Lipitor] 40 mg PO DAILY 12/11/18 [History] Calcitriol 0.25 mcg PO TUTH 12/11/18 [History] Calcium Acetate [PhosLo] 667 mg PO PC-SUPPER 12/11/18 [History] Levothyroxine Sodium [Synthroid] 50 mcg PO DAILY 12/11/18 [History] oxyCODONE-APAP 5-325MG [Percocet 5-325 mg] 1 tab PO DAILY PRN 12/11/18 [History] Furosemide [Lasix] 40 mg PO DAILY 12/15/18 [History] Gabapentin 600 mg PO BID 12/15/18 [History] Linagliptin [Tradjenta] 5 mg PO DAILY 12/15/18 [History] Suvorexant [Belsomra] 10 mg PO HS 12/15/18 [History] Aspirin 81 mg PO DAILY 01/28/19 [History] Acetaminophen Tab [Tylenol] 650 mg PO Q6HR PRN tab 01/29/19 [Rx] Nitroglycerin Sl Tabs [Nitrostat] 0.4 mg SUBLINGUAL Q5M PRN tab 01/29/19 [Rx] Follow up Appointment(s)/Referral(s): Reilly Higginbotham MD [Primary Care Provider] - 02/02/19 9:10 am Feliciano Green MD [STAFF PHYSICIAN] - 2 Weeks Discharge Disposition: HOME SELF-CARE
== END 2019-01-29 15:16 | disposition home or self-care (01) ==
LOC: EC 18:24 → 1SOBS 20:56
PROVIDERS: ADMIT Family Medicine; ATTEND Family Medicine
DX: R07.89 Other chest pain (principal); I48.0 Paroxysmal atrial fibrillation; I10 Essential (primary) hypertension; I45.9 Conduction disorder, unspecified; K21.9 Gastro-esophageal reflux disease without esophagitis; E78.5 Hyperlipidemia, unspecified; E11.42 Type 2 diabetes mellitus with diabetic polyneuropathy; G25.81 Restless legs syndrome; G20 Parkinson's disease; G89.29 Other chronic pain; M54.9 Dorsalgia, unspecified; F41.9 Anxiety disorder, unspecified; F32.9 Major depressive disorder, single episode, unspecified; E03.9 Hypothyroidism, unspecified; N28.9 Disorder of kidney and ureter, unspecified; E78.1 Pure hyperglyceridemia; Z79.82 Long term (current) use of aspirin; Z79.84 Long term (current) use of oral hypoglycemic drugs; Z79.890 Hormone replacement therapy; Z79.891 Long term (current) use of opiate analgesic; Z79.899 Other long term (current) drug therapy; Z97.0 Presence of artificial eye; Z85.038 Personal history of other malignant neoplasm of large intestine; Z96.651 Presence of right artificial knee joint; Z87.891 Personal history of nicotine dependence; Z90.49 Acquired absence of other specified parts of digestive tract; Z82.49 Family history of ischemic heart disease and other diseases of the circulatory system; Z80.8 Family history of malignant neoplasm of other organs or systems; Z83.49 Family history of other endocrine, nutritional and metabolic diseases
CPT/HCPCS: 99285; 36415; 94640; 93005; 93017; 80061; 80053; 83735; 84484 ×2; 85025; 85610; 85730; 71046; 78452; G0378 ×2; C8929; A9500; J0280; Q9950; 93306

== ENCOUNTER 2019-02-08 16:52 | Observation (INO) | payer MEDICARE ==
[2019-02-08 17:28] LABS: Basophils # (A) 0.1 k/uL (0-0.2); Basophils % (A) 1 %; Eosinophils # (A) 0.5 k/uL (0-0.7); Eosinophils % (A) 5 %; HCT 39.9 % (39.0-53.0); HGB 13.2 gm/dL (13.0-17.5); Lymphocytes # (A) 1.9 k/uL (1.0-4.8); Lymphocytes % (A) 20 %; MCH 32.6 pg (25.0-35.0); MCV 98.7 fL (80.0-100.0); Mean Platelet Volume 9.2; Monocytes # (A) 0.4 k/uL (0-1.0); Monocytes % (A) 4 %; Neutrophils # (A) 6.4 k/uL (1.3-7.7); Neutrophils % (A) 69 %; Platelet Count 182 k/uL (150-450); RBC 4.05 m/uL (4.30-5.90); RDW 13.5 % (11.5-15.5); WBC 9.3 k/uL (3.8-10.6)
[2019-02-08 17:35] LABS: INR 0.9 (<1.2); Partial Thromboplastin Time 34.6 sec (22.0-30.0); Prothrombin Time 10.2 sec (9.0-12.0)
[2019-02-08 17:39] LABS: Albumin 4.2 g/dL (3.5-5.0); Calcium 8.8 mg/dL (8.4-10.2); Potassium 5.3 mmol/L (3.5-5.1); Total Bilirubin 0.3 mg/dL (0.2-1.3); Total Protein 6.9 g/dL (6.3-8.2)
[2019-02-08] MEDS ORDERED: ASPIRIN 81 MG PO STA (17:49)
[2019-02-08] MEDS ORDERED: NITROGLYCERIN OINT 1 INCH/GM PACKET TOPICAL STA (17:49)
--- NOTE | 2019-02-08 17:52 | ED ---
General Adult HPI - General Chief complaint: Chest Pain Stated complaint: Chest Pain Time Seen by Provider: 02/08/19 17:30 Source: patient, RN notes reviewed Mode of arrival: wheelchair Limitations: no limitations - History of Present Illness Initial comments: Patient is a pleasant 78-year-old male presenting to the emergency Department with chest discomfort. Patient has been having symptoms intermittently over the past couple of days. Discomfort is not present at this time. Discomfort is somewhat worse exertion. Discomfort feels like pressure in the left central chest. No radiation. Mild associated dyspnea. No nausea or diaphoresis. Patient has had similar symptoms several times over the past couple of months. Patient states he did have a stress test within the past couple of months with Dr. Green. - Related Data Home Medications Medication Instructions Recorded Confirmed Isosorbide Mononitrate [Imdur] 30 mg PO DAILY 01/28/14 02/08/19 Oxybutynin Chloride [Ditropan] 5 mg PO TID 01/28/14 02/08/19 Sertraline [Zoloft] 100 mg PO BID 02/18/16 02/08/19 QUEtiapine [SEROquel] 50 mg PO HS 08/09/16 02/08/19 rOPINIRole HCL [Requip] 0.5 mg PO HS 08/20/16 02/08/19 Lisinopril [Zestril] 5 mg PO DAILY 01/21/17 02/08/19 Ergocalciferol (Vitamin D2) 50,000 unit PO WE 04/08/17 02/08/19 [Vitamin D2] Albuterol Inhaler [Ventolin Hfa 2 puff INHALATION RT-Q6H PRN 10/27/17 02/08/19 Inhaler] Primidone [Mysoline] 150 mg PO BID 10/27/17 02/08/19 Albuterol Nebulized [Ventolin 2.5 mg INHALATION RT-TID 12/11/18 02/08/19 Nebulized] Atenolol [Tenormin] 25 mg PO DAILY 12/11/18 02/08/19 Atorvastatin [Lipitor] 40 mg PO DAILY 12/11/18 02/08/19 Calcitriol 0.25 mcg PO TUTH 12/11/18 02/08/19 Calcium Acetate [PhosLo] 667 mg PO PC-SUPPER 12/11/18 02/08/19 Levothyroxine Sodium [Synthroid] 50 mcg PO DAILY 12/11/18 02/08/19 oxyCODONE-APAP 5-325MG [Percocet 1 tab PO DAILY PRN 12/11/18 02/08/19 5-325 mg] Furosemide [Lasix] 40 mg PO DAILY 12/15/18 02/08/19 Gabapentin 600 mg PO BID 12/15/18 02/08/19 Linagliptin [Tradjenta] 5 mg PO DAILY 12/15/18 02/08/19 Suvorexant [Belsomra] 10 mg PO HS 12/15/18 02/08/19 Aspirin 81 mg PO DAILY 01/28/19 02/08/19 Previous Rx's Medication Instructions Recorded Omeprazole [PriLOSEC] 40 mg PO AC-BRKFST #14 capsule. 10/24/16 Acetaminophen Tab [Tylenol] 650 mg PO Q6HR PRN tab 01/29/19 Nitroglycerin Sl Tabs [Nitrostat] 0.4 mg SUBLINGUAL Q5M PRN tab 01/29/19 Allergies Allergy/AdvReac Type Severity Reaction Status Date / Time No Known Allergies Allergy Verified 02/08/19 17:50 Review of Systems ROS Statement: Those systems with pertinent positive or pertinent negative responses have been documented in the HPI. ROS Other: All systems not noted in ROS Statement are negative. Constitutional: Denies: fever Eyes: Denies: eye pain ENT: Denies: ear pain Respiratory: Reports: as per HPI Cardiovascular: Reports: chest pain Endocrine: Denies: fatigue Gastrointestinal: Denies: abdominal pain Genitourinary: Denies: dysuria Musculoskeletal: Denies: back pain Skin: Denies: rash Neurological: Denies: weakness Past Medical History Past Medical History: Atrial Fibrillation, Cancer, Diabetes Mellitus, GERD/Reflux, Hyperlipidemia, Hypertension, Renal Disease, Thyroid Disorder Additional Past Medical History / Comment(s): artificial Left eye, recent bleeding from left eye globe, restless leg sydrome, COLON CANCER, neuropathy, parkinsons, chronic back pain, History of Any Multi-Drug Resistant Organisms: None Reported Past Surgical History: Back Surgery, Bowel Resection, Heart Catheterization, J oint Replacement, Prostate Surgery Additional Past Surgical History / Comment(s): right knee replaced, back sx with titanium gavin Past Anesthesia/Blood Transfusion Reactions: Previous Problems w/ Anesthesia, Motion Sickness Additional Past Anesthesia/Blood Transfusion Reaction / Comment(s): "couldn't move left arm [post anesthesia]" Past Psychological History: Anxiety, Depression Smoking Status: Former smoker Past Alcohol Use History: None Reported Past Drug Use History: None Reported - Past Family History Mother Family Medical History: Cancer, Hyperlipidemia, Hypertension Additional Family Medical History / Comment(s): ca: brain Father Family Medical History: Hyperlipidemia, Hypertension General Exam Limitations: no limitations General appearance: alert, in no apparent distress Head exam: Present: normocephalic Eye exam: Present: normal appearance, PERRL ENT exam: Present: normal oropharynx Neck exam: Present: normal inspection Respiratory exam: Present: normal lung sounds bilaterally. Absent: chest wall tenderness Cardiovascular Exam: Present: regular rate, normal rhythm Expanded Peripheral pulses: 2+: Radial (R), Radial (L), Posterior Tibialis (R), Posterior Tibialis (L) GI/Abdominal exam: Present: soft. Absent: tenderness Extremities exam: Present: normal inspection. Absent: pedal edema, calf tenderness Neurological exam: Present: alert Psychiatric exam: Present: normal affect, normal mood Skin exam: Present: normal color Course Vital Signs 02/08/19 16:59 Temperature 99 F Pulse Rate 64 Respiratory 18 Rate Blood Pressure 171/88 O2 Sat by Pulse 99 Oximetry - Reevaluation(s) Reevaluation #1: 02/08/19 18:55 Case was also discussed with Dr. Kam, who will admit covering for Dr. Higginbotham. EKG Findings - EKG Comments: EKG Findings:: Normal sinus rhythm at 64. DE 182. QRS 92. QT 386. QTc 408. Normal axis. Normal QRS. No acute ST change. Medical Decision Making - Medical Decision Making Patient reevaluated and updated. Case was discussed in detail with Dr. Higginbotham who will admit however does request notifying hospitalist group who is now covering for him. - Lab Data Result diagrams: 02/08/19 17:17 02/08/19 17:17 Lab Results 02/08/19 02/08/19 02/08/19 Range/Units 17:17 17:17 17:17 WBC 9.3 (3.8-10.6) k/uL RBC 4.05 L (4.30-5.90) m/uL Hgb 13.2 (13.0-17.5) gm/dL Hct 39.9 (39.0-53.0) % MCV 98.7 (80.0-100.0) fL MCH 32.6 (25.0-35.0) pg MCHC 33.0 (31.0-37.0) g/dL RDW 13.5 (11.5-15.5) % Plt Count 182 (150-450) k/uL Neutrophils % 69 % Lymphocytes % 20 % Monocytes % 4 % Eosinophils % 5 % Basophils % 1 % Neutrophils # 6.4 (1.3-7.7) k/uL Lymphocytes # 1.9 (1.0-4.8) k/uL Monocytes # 0.4 (0-1.0) k/uL Eosinophils # 0.5 (0-0.7) k/uL Basophils # 0.1 (0-0.2) k/uL PT 10.2 (9.0-12.0) sec INR 0.9 (<1.2) APTT 34.6 H (22.0-30.0) sec Sodium 139 (137-145) mmol/L Potassium 5.3 H (3.5-5.1) mmol/L Chloride 108 H (98-107) mmol/L Carbon Dioxide 22 (22-30) mmol/L Anion Gap 9 mmol/L BUN 25 H (9-20) mg/dL Creatinine 1.66 H (0.66-1.25) mg/dL Est GFR (CKD-EPI)AfAm 44 (>60 ml/min/1.73 sqM) Est GFR (CKD-EPI)NonAf 38 (>60 ml/min/1.73 sqM) Glucose 116 H (74-99) mg/dL Calcium 8.8 (8.4-10.2) mg/dL Total Bilirubin 0.3 (0.2-1.3) mg/dL AST 22 (17-59) U/L ALT 13 L (21-72) U/L Alkaline Phosphatase 183 H (38-126) U/L Troponin I (0.000-0.034) ng/mL NT-Pro-B Natriuret Pep pg/mL Total Protein 6.9 (6.3-8.2) g/dL Albumin 4.2 (3.5-5.0) g/dL 02/08/19 02/08/19 Range/Units 17:17 17:17 WBC (3.8-10.6) k/uL RBC (4.30-5.90) m/uL Hgb (13.0-17.5) gm/dL Hct (39.0-53.0) % MCV (80.0-100.0) fL MCH (25.0-35.0) pg MCHC (31.0-37.0) g/dL RDW (11.5-15.5) % Plt Count (150-450) k/uL Neutrophils % % Lymphocytes % % Monocytes % % Eosinophils % % Basophils % % Neutrophils # (1.3-7.7) k/uL Lymphocytes # (1.0-4.8) k/uL Monocytes # (0-1.0) k/uL Eosinophils # (0-0.7) k/uL Basophils # (0-0.2) k/uL PT (9.0-12.0) sec INR (<1.2) APTT (22.0-30.0) sec Sodium (137-145) mmol/L Potassium (3.5-5.1) mmol/L Chloride (98-107) mmol/L Carbon Dioxide (22-30) mmol/L Anion Gap mmol/L BUN (9-20) mg/dL Creatinine (0.66-1.25) mg/dL Est GFR (CKD-EPI)AfAm (>60 ml/min/1.73 sqM) Est GFR (CKD-EPI)NonAf (>60 ml/min/1.73 sqM) Glucose (74-99) mg/dL Calcium (8.4-10.2) mg/dL Total Bilirubin (0.2-1.3) mg/dL AST (17-59) U/L ALT (21-72) U/L Alkaline Phosphatase (38-126) U/L Troponin I <0.012 (0.000-0.034) ng/mL NT-Pro-B Natriuret Pep 240 pg/mL Total Protein (6.3-8.2) g/dL Albumin (3.5-5.0) g/dL - Radiology Data Interpreted by me: X-ray interpreted by myself reveals no acute process. Disposition Clinical Impression: Chest pain Disposition: ADMITTED IP TO THIS HOSP Is patient prescribed a controlled substance at d/c from ED?: No Referrals: Reilly Higginbotham MD [Primary Care Provider] - 1-2 days Decision Time: 18:41
[2019-02-08] MEDS ORDERED: NITROGLYCERIN SL TABS 0.4 MG TAB SUBLINGUAL PRN ×2 (18:41→20:57)
[2019-02-08 19:00] LABS: Magnesium 2.7 mg/dL (1.6-2.3)
--- NOTE | 2019-02-08 19:02 | XR ---
EXAMINATION TYPE: XR chest 2V DATE OF EXAM: 02/08/2019 COMPARISON: 01/28/2019 HISTORY: Chest pain TECHNIQUE: Frontal and lateral views of the chest are obtained. FINDINGS: Heart is normal. Lungs are clear of consolidation. There is no pleural effusion. Thoracic aorta is atheromatous. Bony thorax is intact. There is bilateral subacromial joint space narrowing. IMPRESSION: No active cardiopulmonary disease. Normal heart. No change.
--- NOTE | 2019-02-08 19:51 | P.CRDCN ---
History of Present Illness Consult date: 02/08/19 Chief complaint: Chest pain History of present illness: This is a pleasant 78-year-old gentleman who sees Dr. Green in the office on regular basis with a past medical history significant for paroxysmal atrial fibrillation, diabetes, hypertension, and dyslipidemia, as well as panic disorder, resented to the hospital with multiple symptoms. The patient was admitted to the hospital last week with a chest discomfort and he was ruled out for acute non-ST patient myocardial infarction and subsequently underwent myocardial perfusion imaging stress test and that came in to be unremarkable. He was discharged in stable medical condition. This time he presented to the emergency room again not feeling well. He has been experiencing upper resp iratory infection including sore throat and runny nose for the last 2 weeks. He was seen by his primary care physician, Dr. Higginbotham who told the patient that he does have sinus infection. Earlier today, he was experiencing what it seems to be abdominal discomfort with some radiation to the chest. No shortness of breath, dizziness, heart racing, or syncope. No fever and no chills. No nausea or vomiting. No diarrhea as well as. The EKG showed sinus rhythm without any ischemic ST or T-wave abnormalities. We have only one set of troponin came in to be unremarkable. The chest x-ray did not show any acute abnormalities. Past Medical History Past Medical History: Atrial Fibrillation, Cancer, Diabetes Mellitus, GERD/Reflux, Hyperlipidemia, Hypertension, Renal Disease, Thyroid Disorder Additional Past Medical History / Comment(s): artificial Left eye, recent bleeding from left eye globe, restless leg sydrome, COLON CANCER, neuropathy, parkinsons, chronic back pain, History of Any Multi-Drug Resistant Organisms: None Reported Past Surgical History: Back Surgery, Bowel Resection, Heart Catheterization, Joint Replacement, Prostate Surgery Additional Past Surgical History / Comment(s): right knee replaced, back sx with titanium gavin Past Anesthesia/Blood Transfusion Reactions: Previous Problems w/ Anesthesia, Motion Sickness Additional Past Anesthesia/Blood Transfusion Reaction / Comment(s): "couldn't move left arm [post anesthesia]" Past Psychological History: Anxiety, Depression Smoking Status: Former smoker Past Alcohol Use History: None Reported Past Drug Use History: None Reported - Past Family History Mother Family Medical History: Cancer, Hyperlipidemia, Hypertension Additional Family Medical History / Comment(s): ca: brain Father Family Medical History: Hyperlipidemia, Hypertension Medications and Allergies Home Medications Medication Instructions Recorded Confirmed Type Isosorbide Mononitrate [Imdur] 30 mg PO DAILY 01/28/14 02/08/19 History Oxybutynin Chloride [Ditropan] 5 mg PO TID 01/28/14 02/08/19 History Sertraline [Zoloft] 100 mg PO BID 02/18/16 02/08/19 History QUEtiapine [SEROquel] 50 mg PO HS 08/09/16 02/08/19 History rOPINIRole HCL [Requip] 0.5 mg PO HS 08/20/16 02/08/19 History Omeprazole [PriLOSEC] 40 mg PO CHITRA-JAZJunior #14 capsule. 10/24/16 02/08/19 Rx Lisinopril [Zestril] 5 mg PO DAILY 01/21/17 02/08/19 History Ergocalciferol (Vitamin D2) 50,000 unit PO WE 04/08/17 02/08/19 History [Vitamin D2] Albuterol Inhaler [Ventolin Hfa 2 puff INHALATION RT-Q6H PRN 10/27/17 02/08/19 History Inhaler] Primidone [Mysoline] 150 mg PO BID 10/27/17 02/08/19 History Albuterol Nebulized [Ventolin 2.5 mg INHALATION RT-TID 12/11/18 02/08/19 History Nebulized] Atenolol [Tenormin] 25 mg PO DAILY 12/11/18 02/08/19 History Atorvastatin [Lipitor] 40 mg PO DAILY 12/11/18 02/08/19 History Calcitriol 0.25 mcg PO TUTH 12/11/18 02/08/19 History Calcium Acetate [PhosLo] 667 mg PO PC-SUPPER 12/11/18 02/08/19 History Levothyroxine Sodium [Synthroid] 50 mcg PO DAILY 12/11/18 02/08/19 History oxyCODONE-APAP 5-325MG [Percocet 1 tab PO DAILY PRN 12/11/18 02/08/19 History 5-325 mg] Furosemide [Lasix] 40 mg PO DAILY 12/15/18 02/08/19 History Gabapentin 600 mg PO BID 12/15/18 02/08/19 History Linagliptin [Tradjenta] 5 mg PO DAILY 12/15/18 02/08/19 History Suvorexant [Belsomra] 10 mg PO HS 12/15/18 02/08/19 History Aspirin 81 mg PO DAILY 01/28/19 02/08/19 History Acetaminophen Tab [Tylenol] 650 mg PO Q6HR PRN tab 01/29/19 02/08/19 Rx Nitroglycerin Sl Tabs [Nitrostat] 0.4 mg SUBLINGUAL Q5M PRN tab 01/29/19 02/08/19 Rx Allergies Allergy/AdvReac Type Severity Reaction Status Date / Time No Known Allergies Allergy Verified 02/08/19 17:50 Physical Exam Vitals: Vital Signs Temp Pulse Resp BP Pulse Ox 02/08/19 19:27 99 F 64 18 171/88 99 02/08/19 16:59 99 F 64 18 171/88 99 Intake and Output 02/08/19 02/08/19 02/08/19 06:59 14:59 22:59 Other: Weight 79.379 kg - Constitutional General appearance: no acute distress - Respiratory Respiratory: bilateral: CTA - Cardiovascular Rhythm: regular Heart sounds: normal: S1, S2 Results 02/08/19 17:17 02/08/19 17:17 Cardiac Enzymes 02/08/19 02/08/19 Range/Units 17:17 17:17 AST 22 (17-59) U/L Troponin I <0.012 (0.000-0.034) ng/mL Coagulation 02/08/19 Range/Units 17:17 PT 10.2 (9.0-12.0) sec APTT 34.6 H (22.0-30.0) sec CBC 02/08/19 Range/Units 17:17 WBC 9.3 (3.8-10.6) k/uL RBC 4.05 L (4.30-5.90) m/uL Hgb 13.2 (13.0-17.5) gm/dL Hct 39.9 (39.0-53.0) % Plt Count 182 (150-450) k/uL Comprehensive Metabolic Panel 02/08/19 Range/Units 17:17 Sodium 139 (137-145) mmol/L Potassium 5.3 H (3.5-5.1) mmol/L Chloride 108 H (98-107) mmol/L Carbon Dioxide 22 (22-30) mmol/L BUN 25 H (9-20) mg/dL Creatinine 1.66 H (0.66-1.25) mg/dL Glucose 116 H (74-99) mg/dL Calcium 8.8 (8.4-10.2) mg/dL AST 22 (17-59) U/L ALT 13 L (21-72) U/L Alkaline Phosphatase 183 H (38-126) U/L Total Protein 6.9 (6.3-8.2) g/dL Albumin 4.2 (3.5-5.0) g/dL Current Medications Generic Name Dose Route Start Last Admin Trade Name Freq PRN Reason Stop Dose Admin Aspirin 325 mg 02/09/19 09:00 Aspirin PO DAILY OCTAVIO Nitroglycerin 1 inch 02/09/19 00:00 Nitro-Bid Oint TOPICAL Q6HR OCTAVIO Nitroglycerin 0.4 mg 02/08/19 18:41 Nitrostat SUBLINGUAL Q5M PRN Chest Pain Intake and Output 02/08/19 02/08/19 02/08/19 06:59 14:59 22:59 Other: Weight 79.379 kg Patient Weight 02/09/19 06:59 Weight 79.379 kg 02/08/19 17:17 02/08/19 17:17 Assessment and Plan Assessment: Assessment #1 atypical chest discomfort #2 abdominal discomfort #3 upper respiratory infection #4 multiple comorbid conditions Plan #1 the EKG did not show any ischemic ST or T-wave abnormalities #2 the first set of troponin came in to be unremarkable. #3 the patient expressed the feeling that he would like to go home. He underwent last week a stress test came in to be unremarkable #4 currently he is chest pain-free. I did tell the patient if he is getting up and around and walking and not experiencing any chest discomfort he might be able to be discharged home. Thank you for allowing us participate in his care and we will continue following up with the patient
[2019-02-08] MEDS ORDERED: oxyCODONE-APAP 5-325MG 1 EACH TAB PO PRN (20:57)
[2019-02-08] MEDS ORDERED: ALBUTEROL NEBULIZED 2.5 MG/3 ML INHALATION PRN (20:57)
[2019-02-08] MEDS ORDERED: ACETAMINOPHEN TAB 325 MG TAB PO PRN (20:57)
[2019-02-08] MEDS ORDERED: QUEtiapine 50 MG TAB PO SCH (21:15)
[2019-02-08] MEDS ORDERED: Suvorexant [Belsomra] 10 MG PO SCH (21:15)
[2019-02-08 21:28] LABS: Glucose,Whole Blood 112 mg/dL (75-99)
[2019-02-08] MEDS: GABAPENTIN 300 MG CAP PO SCH (22:42)
[2019-02-08] MEDS: SERTRALINE 100 MG TAB PO SCH (22:43)
[2019-02-08] MEDS: PRIMIDONE 50 MG TAB PO SCH (22:43)
[2019-02-08] MEDS: OXYBUTYNIN CHLORIDE 5 MG TAB PO SCH (22:43)
[2019-02-08] MEDS: NITROGLYCERIN OINT 1 INCH/GM PACKET TOPICAL SCH (23:44)
[2019-02-09] MEDS: NITROGLYCERIN OINT 1 INCH/GM PACKET TOPICAL SCH ×2 (05:42→11:07)
[2019-02-09 06:09] LABS: Cholesterol 149 mg/dL (<200); HDL Cholesterol 24 mg/dL (40-60); Triglycerides 502 mg/dL (<150)
[2019-02-09] MEDS ORDERED: LEVOTHYROXINE 50 MCG TAB PO SCH (06:30)
[2019-02-09 06:55] LABS: Glucose,Whole Blood 150 mg/dL (75-99)
[2019-02-09] MEDS ORDERED: PANTOPRAZOLE 40 MG TABLET PO SCH (07:30)
--- NOTE | 2019-02-09 07:32 | P.PN ---
Subjective Progress Note Date: 02/09/19 Principal diagnosis: Chest discomfort This is a pleasant 78-year-old gentleman with diabetes, hypertension, dyslipidemia, and paroxysmal atrial fibrillation, who was admitted to the hospital yesterday with symptoms of upper respiratory infection, generalized fatigue, and atypical chest discomfort. He was ruled out for acute coronary syndrome. He underwent a stress test recently and that came in to be unremarkable. On follow-up with him today, he is feeling overall better. He is chest pain- free. He would like to be discharged home. From a cardiovascular standpoint of view, I would get the patient up and around and if she is asymptomatic he might be able to be discharged home. Objective - Vital Signs Vital signs: Vital Signs Temp 97.5 F L 02/09/19 03:29 Pulse 61 02/09/19 06:59 Resp 16 02/09/19 06:59 BP 153/71 02/09/19 03:29 Pulse Ox 95 02/09/19 06:49 Intake & Output 02/08/19 02/09/19 02/09/19 18:59 06:59 18:59 Weight 79.379 kg Other: Voiding Method Toilet Urinal # Voids 1 - Constitutional General appearance: Present: no acute distress - Respiratory Respiratory: bilateral: CTA - Cardiovascular Rhythm: regular Heart sounds: normal: S1, S2 - Labs CBC & Chem 7: 02/08/19 17:17 02/08/19 17:17 Labs: Abnormal Lab Results - Last 24 Hours (Table) 02/08/19 02/08/19 02/08/19 Range/Units 17:17 17:17 17:17 RBC 4.05 L (4.30-5.90) m/uL APTT 34.6 H (22.0-30.0) sec Potassium 5.3 H (3.5-5.1) mmol/L Chloride 108 H (98-107) mmol/L BUN 25 H (9-20) mg/dL Creatinine 1.66 H (0.66-1.25) mg/dL Glucose 116 H (74-99) mg/dL POC Glucose (mg/dL) (75-99) mg/dL Magnesium (1.6-2.3) mg/dL ALT 13 L (21-72) U/L Alkaline Phosphatase 183 H (38-126) U/L Triglycerides (<150) mg/dL HDL Cholesterol (40-60) mg/dL 02/08/19 02/08/19 02/09/19 Range/Units 17:17 21:00 05:20 RBC (4.30-5.90) m/uL APTT (22.0-30.0) sec Potassium (3.5-5.1) mmol/L Chloride (98-107) mmol/L BUN (9-20) mg/dL Creatinine (0.66-1.25) mg/dL Glucose (74-99) mg/dL POC Glucose (mg/dL) 112 H (75-99) mg/dL Magnesium 2.7 H (1.6-2.3) mg/dL ALT (21-72) U/L Alkaline Phosphatase (38-126) U/L Triglycerides 502 H (<150) mg/dL HDL Cholesterol 24 L (40-60) mg/dL 02/09/19 Range/Units 06:53 RBC (4.30-5.90) m/uL APTT (22.0-30.0) sec Potassium (3.5-5.1) mmol/L Chloride (98-107) mmol/L BUN (9-20) mg/dL Creatinine (0.66-1.25) mg/dL Glucose (74-99) mg/dL POC Glucose (mg/dL) 150 H (75-99) mg/dL Magnesium (1.6-2.3) mg/dL ALT (21-72) U/L Alkaline Phosphatase (38-126) U/L Triglycerides (<150) mg/dL HDL Cholesterol (40-60) mg/dL Assessment and Plan Assessment: Assessment #1 atypical chest discomfort #2 abdominal discomfort #3 upper respiratory infection #4 multiple comorbid conditions Plan #1 the EKG did not show any ischemic ST or T-wave abnormalities #2 the first set of troponin came in to be unremarkable. #3 from the cardiac standpoint, the patient can be sharp home
[2019-02-09] MEDS ORDERED: ALBUTEROL NEBULIZED 2.5 MG/3 ML INHALATION SCH (08:00)
[2019-02-09 08:11] VITALS: RESP 18; TEMP 97.7
[2019-02-09] MEDS ORDERED: LINAGLIPTIN 5 MG TABLET PO SCH (09:00)
[2019-02-09] MEDS ORDERED: LISINOPRIL 5 MG TAB PO SCH (09:00)
[2019-02-09] MEDS ORDERED: ISOSORBIDE MONONITRATE ER 60 MG TAB.ER.24H PO SCH (09:00)
[2019-02-09] MEDS: SERTRALINE 100 MG TAB PO SCH (09:00)
[2019-02-09] MEDS ORDERED: ATENOLOL 25 MG TAB PO SCH (09:00)
[2019-02-09] MEDS ORDERED: ASPIRIN 325 MG TAB PO SCH (09:00)
[2019-02-09] MEDS: PRIMIDONE 50 MG TAB PO SCH (09:00)
[2019-02-09] MEDS ORDERED: ATORVASTATIN 40 MG TAB PO SCH (09:00)
[2019-02-09] MEDS ORDERED: ISOSORBIDE MONONITRATE ER 30 MG TAB.ER.24H PO SCH (09:00)
[2019-02-09] MEDS ORDERED: ASPIRIN 81 MG PO SCH (09:00)
[2019-02-09] MEDS ORDERED: FUROSEMIDE 40 MG TAB PO SCH (09:00)
[2019-02-09] MEDS: GABAPENTIN 300 MG CAP PO SCH (09:01)
[2019-02-09] MEDS: OXYBUTYNIN CHLORIDE 5 MG TAB PO SCH (09:02)
[2019-02-09 11:00] VITALS: BP 151/73; PULSE 65
[2019-02-09 12:00] LABS: Glucose,Whole Blood 185 mg/dL (75-99)
--- NOTE | 2019-02-09 14:35 | P.DS ---
Providers Date of admission: 02/08/19 18:41 Attending physician: Reilly Higginbotham Consults: 02/08/19 18:41 Consult Physician Urgent Consulting Provider: Domenico Hutchinson Consult Reason/Comments: cp Do you want consulting provider notified?: Yes Primary care physician: Reilly Higginbotham Hospital Course: Please refer to my HPI Plan - Discharge Summary Discharge Rx Participant: No New Discharge Prescriptions: New Isosorbide Mononitrate ER [Imdur] 60 mg PO DAILY #30 tab.er.24h Omeprazole [PriLOSEC] 40 mg PO AC-BRKFST #14 capsule. Continue Oxybutynin Chloride [Ditropan] 5 mg PO TID Sertraline [Zoloft] 100 mg PO BID QUEtiapine [SEROquel] 50 mg PO HS rOPINIRole HCL [Requip] 0.5 mg PO HS Omeprazole [PriLOSEC] 40 mg PO AC-BRKFST #14 capsule. Ergocalciferol (Vitamin D2) [Vitamin D2] 50,000 unit PO QMONTH Albuterol Inhaler [Ventolin Hfa Inhaler] 2 puff INHALATION RT-Q6H PRN PRN Reason: Shortness Of Breath Primidone [Mysoline] 150 mg PO BID Albuterol Nebulized [Ventolin Nebulized] 2.5 mg INHALATION RT-TID oxyCODONE-APAP 5-325MG [Percocet 5-325 mg] 1 tab PO DAILY PRN PRN Reason: Pain Levothyroxine Sodium [Synthroid] 50 mcg PO DAILY Calcium Acetate [PhosLo] 667 mg PO PC-SUPPER Calcitriol 0.25 mcg PO TUTH Atorvastatin [Lipitor] 40 mg PO DAILY Atenolol [Tenormin] 25 mg PO DAILY Linagliptin [Tradjenta] 5 mg PO DAILY Suvorexant [Belsomra] 10 mg PO HS Gabapentin 600 mg PO BID Furosemide [Lasix] 40 mg PO DAILY Aspirin 81 mg PO DAILY Nitroglycerin Sl Tabs [Nitrostat] 0.4 mg SUBLINGUAL Q5M PRN tab PRN Reason: Chest Pain Acetaminophen Tab [Tylenol] 650 mg PO Q6HR PRN tab PRN Reason: Fever And/ Or Pain Discontinued Isosorbide Mononitrate [Imdur] 30 mg PO DAILY Lisinopril [Zestril] 5 mg PO DAILY Discharge Medication List Oxybutynin Chloride [Ditropan] 5 mg PO TID 01/28/14 [History] Sertraline [Zoloft] 100 mg PO BID 02/18/16 [History] QUEtiapine [SEROquel] 50 mg PO HS 08/09/16 [History] rOPINIRole HCL [Requip] 0.5 mg PO HS 08/20/16 [History] Omeprazole [PriLOSEC] 40 mg PO TIMFSJunior #14 capsule. 10/24/16 [Rx] Ergocalciferol (Vitamin D2) [Vitamin D2] 50,000 unit PO QMONTH 04/08/17 [History] Albuterol Inhaler [Ventolin Hfa Inhaler] 2 puff INHALATION RT-Q6H PRN 10/27/17 [History] Primidone [Mysoline] 150 mg PO BID 10/27/17 [History] Albuterol Nebulized [Ventolin Nebulized] 2.5 mg INHALATION RT-TID 12/11/18 [History] Atenolol [Tenormin] 25 mg PO DAILY 12/11/18 [History] Atorvastatin [Lipitor] 40 mg PO DAILY 12/11/18 [History] Calcitriol 0.25 mcg PO TUTH 12/11/18 [History] Calcium Acetate [PhosLo] 667 mg PO PC-SUPPER 12/11/18 [History] Levothyroxine Sodium [Synthroid] 50 mcg PO DAILY 12/11/18 [History] oxyCODONE-APAP 5-325MG [Percocet 5-325 mg] 1 tab PO DAILY PRN 12/11/18 [History] Furosemide [Lasix] 40 mg PO DAILY 12/15/18 [History] Gabapentin 600 mg PO BID 12/15/18 [History] Linagliptin [Tradjenta] 5 mg PO DAILY 12/15/18 [History] Suvorexant [Belsomra] 10 mg PO HS 12/15/18 [History] Aspirin 81 mg PO DAILY 01/28/19 [History] Acetaminophen Tab [Tylenol] 650 mg PO Q6HR PRN tab 01/29/19 [Rx] Nitroglycerin Sl Tabs [Nitrostat] 0.4 mg SUBLINGUAL Q5M PRN tab 01/29/19 [Rx] Isosorbide Mononitrate ER [Imdur] 60 mg PO DAILY #30 tab.er.24h 02/09/19 [Rx] Omeprazole [PriLOSEC] 40 mg PO AC-BRKFST #14 capsule.dr 02/09/19 [Rx] Follow up Appointment(s)/Referral(s): Reilly Higginbotham MD [Primary Care Provider] - 3 Days Discharge Disposition: HOME SELF-CARE
--- NOTE | 2019-02-09 14:35 | P.HPIM ---
History of Present Illness 78-year-old pleasant gentleman has multiple hospitalizations in the past of her chest pain came in again with pressure-like chest pain. Patient was a valid by cardiology patient also has some epigastric abdominal pain. Patient has history of the proximal atrial fibrillation as well. Patient had a recent stress test that was negative. Patient appears to have some anxiety which is contributing to his chest pain chest pain is noncardiac not associated with food not associated with the deep breathing denied any lightheadedness diaphoresis associated with that patient was evaluated by cardiology and cleared for discharge. Patient before discharge has some hematuria which are resolved. Patient will be referred to urology patient does not have any UTI symptoms at this time. Patient's serum creatinine is 1.66 which is his baseline and patient's serum potassium is 5.3 because of which I'm discontinuing lisinopril basic metabolic profile need to be retested again probably can be started on a low-dose of lisinopril as an outpatient. Patient to as an have any systolic dysfunction. Patient's chest pain resolved at this time. Review of Systems REVIEW OF SYSTEMS: CONSTITUTIONAL: No fever, no malaise, no fatigue. HEENT: No recent visual problems or hearing problems. Denied any sore throat. CARDIOVASCULAR: No orthopnea, PND, no palpitations, no syncope. PULMONARY: No shortness of breath, no cough, no hemoptysis. GASTROINTESTINAL: No diarrhea, no nausea, no vomiting. NEUROLOGICAL: No headaches, no weakness, no numbness. HEMATOLOGICAL: Denies any bleeding or petechiae. GENITOURINARY: Denies any burning micturition, frequency, or urgency. MUSCULOSKELETAL/RHEUMATOLOGICAL: Denies any joint pain, swelling, or any muscle pain. ENDOCRINE: Denies any polyuria or polydipsia. The rest of the 14-point review of systems is negative. Past Medical History Past Medical History: Atrial Fibrillation, Cancer, Diabetes Mellitus, GERD/Reflux, Hyperlipidemia, Hypertension, Renal Disease, Thyroid Disorder Additional Past Medical History / Comment(s): artificial Left eye, recent bleeding from left eye globe, restless leg sydrome, COLON CANCER, neuropathy, parkinsons, chronic back pain, History of Any Multi-Drug Resistant Organisms: None Reported Past Surgical History: Back Surgery, Bowel Resection, Heart Catheterization, Joint Replacement, Prostate Surgery Additional Past Surgical History / Comment(s): right knee replaced, back sx with titanium gavin Past Anesthesia/Blood Transfusion Reactions: Previous Problems w/ Anesthesia, Motion Sickness Additional Past Anesthesia/Blood Transfusion Reaction / Comment(s): "couldn't move left arm [post anesthesia]" Past Psychological History: Anxiety, Depression Smoking Status: Former smoker Past Alcohol Use History: None Reported Past Drug Use History: None Reported - Past Family History Mother Family Medical History: Cancer, Hyperlipidemia, Hypertension Additional Family Medical History / Comment(s): ca: brain Father Family Medical History: Hyperlipidemia, Hypertension Medications and Allergies Home Medications Medication Instructions Recorded Confirmed Type Oxybutynin Chloride [Ditropan] 5 mg PO TID 01/28/14 02/08/19 History Sertraline [Zoloft] 100 mg PO BID 02/18/16 02/08/19 History QUEtiapine [SEROquel] 50 mg PO HS 08/09/16 02/08/19 History rOPINIRole HCL [Requip] 0.5 mg PO HS 08/20/16 02/08/19 History Omeprazole [PriLOSEC] 40 mg PO REECE #14 capsule. 10/24/16 02/08/19 Rx Ergocalciferol (Vitamin D2) 50,000 unit PO QMONTH 04/08/17 02/08/19 History [Vitamin D2] Albuterol Inhaler [Ventolin Hfa 2 puff INHALATION RT-Q6H PRN 10/27/17 02/08/19 History Inhaler] Primidone [Mysoline] 150 mg PO BID 10/27/17 02/08/19 History Albuterol Nebulized [Ventolin 2.5 mg INHALATION RT-TID 12/11/18 02/08/19 History Nebulized] Atenolol [Tenormin] 25 mg PO DAILY 12/11/18 02/08/19 History Atorvastatin [Lipitor] 40 mg PO DAILY 12/11/18 02/08/19 History Calcitriol 0.25 mcg PO TUTH 12/11/18 02/08/19 History Calcium Acetate [PhosLo] 667 mg PO PC-SUPPER 12/11/18 02/08/19 History Levothyroxine Sodium [Synthroid] 50 mcg PO DAILY 12/11/18 02/08/19 History oxyCODONE-APAP 5-325MG [Percocet 1 tab PO DAILY PRN 12/11/18 02/08/19 History 5-325 mg] Furosemide [Lasix] 40 mg PO DAILY 12/15/18 02/08/19 History Gabapentin 600 mg PO BID 12/15/18 02/08/19 History Linagliptin [Tradjenta] 5 mg PO DAILY 12/15/18 02/08/19 History Suvorexant [Belsomra] 10 mg PO HS 12/15/18 02/08/19 History Aspirin 81 mg PO DAILY 01/28/19 02/08/19 History Acetaminophen Tab [Tylenol] 650 mg PO Q6HR PRN tab 01/29/19 02/08/19 Rx Nitroglycerin Sl Tabs [Nitrostat] 0.4 mg SUBLINGUAL Q5M PRN tab 01/29/19 02/08/19 Rx Isosorbide Mononitrate ER [Imdur] 60 mg PO DAILY #30 tab.er.24h 02/09/19 Rx Omeprazole [PriLOSEC] 40 mg PO AC-BRKFST #14 capsule. 02/09/19 Rx Allergies Allergy/AdvReac Type Severity Reaction Status Date / Time No Known Allergies Allergy Verified 02/08/19 17:50 Physical Exam Vitals: Vital Signs Temp Pulse Pulse Resp BP BP Pulse Ox 02/09/19 10:59 65 18 151/73 97 02/09/19 08:00 97.7 F 54 L 18 118/58 99 02/09/19 06:59 61 16 02/09/19 06:49 58 L 16 95 02/09/19 03:42 16 02/09/19 03:29 97.5 F L 52 L 16 153/71 96 02/09/19 00:00 16 02/08/19 23:26 98.1 F 62 16 169/81 96 02/08/19 20:00 16 02/08/19 19:59 98.1 F 61 16 165/78 96 02/08/19 19:27 99 F 64 18 171/88 99 02/08/19 16:59 99 F 64 18 171/88 99 Intake and Output 02/08/19 02/09/19 02/09/19 22:59 06:59 14:59 Intake Total 240 Balance 240 Intake: Oral 240 Other: Voiding Method Toilet Toilet Toilet Urinal Urinal Urinal # Voids 1 1 Weight 79.379 kg PHYSICAL EXAMINATION: GENERAL: The patient is alert and oriented x3, not in any acute distress. Well developed, well nourished. HEENT: Pupils are round and equally reacting to light. EOMI. No scleral icterus. No conjunctival pallor. Normocephalic, atraumatic. No pharyngeal erythema. No thyromegaly. CARDIOVASCULAR: S1 and S2 present. No murmurs, rubs, or gallops. PULMONARY: Chest is clear to auscultation, no wheezing or crackles. ABDOMEN: Soft, nontender, nondistended, normoactive bowel sounds. No palpable organomegaly. MUSCULOSKELETAL: No joint swelling or deformity. EXTREMITIES: No cyanosis, clubbing, or pedal edema. NEUROLOGICAL: Gross neurological examination did not reveal any focal deficits. SKIN: No rashes. Results CBC & Chem 7: 02/08/19 17:17 02/08/19 17:17 Labs: Abnormal Lab Results - Last 24 Hours (Table) 02/08/19 02/08/19 02/08/19 Range/Units 17:17 17:17 17:17 RBC 4.05 L (4.30-5.90) m/uL APTT 34.6 H (22.0-30.0) sec Potassium 5.3 H (3.5-5.1) mmol/L Chloride 108 H (98-107) mmol/L BUN 25 H (9-20) mg/dL Creatinine 1.66 H (0.66-1.25) mg/dL Glucose 116 H (74-99) mg/dL POC Glucose (mg/dL) (75-99) mg/dL Magnesium (1.6-2.3) mg/dL ALT 13 L (21-72) U/L Alkaline Phosphatase 183 H (38-126) U/L Triglycerides (<150) mg/dL HDL Cholesterol (40-60) mg/dL 02/08/19 02/08/19 02/09/19 Range/Units 17:17 21:00 05:20 RBC (4.30-5.90) m/uL APTT (22.0-30.0) sec Potassium (3.5-5.1) mmol/L Chloride (98-107) mmol/L BUN (9-20) mg/dL Creatinine (0.66-1.25) mg/dL Glucose (74-99) mg/dL POC Glucose (mg/dL) 112 H (75-99) mg/dL Magnesium 2.7 H (1.6-2.3) mg/dL ALT (21-72) U/L Alkaline Phosphatase (38-126) U/L Triglycerides 502 H (<150) mg/dL HDL Cholesterol 24 L (40-60) mg/dL 02/09/19 02/09/19 Range/Units 06:53 11:59 RBC (4.30-5.90) m/uL APTT (22.0-30.0) sec Potassium (3.5-5.1) mmol/L Chloride (98-107) mmol/L BUN (9-20) mg/dL Creatinine (0.66-1.25) mg/dL Glucose (74-99) mg/dL POC Glucose (mg/dL) 150 H 185 H (75-99) mg/dL Magnesium (1.6-2.3) mg/dL ALT (21-72) U/L Alkaline Phosphatase (38-126) U/L Triglycerides (<150) mg/dL HDL Cholesterol (40-60) mg/dL Thrombosis Risk Factor Assmnt - Choose All That Apply Any of the Below Risk Factors Present?: Yes Each Factor Represents 1 point: Obesity (BMI >25) Each Risk Factor Represents 3 Points: Age 75 years or older Thrombosis Risk Factor Assessment Total Risk Factor Score: 4 Thrombosis Risk Factor Assessment Level: Moderate Risk Assessment and Plan Plan: -Chest pain ruled out acute coronary syndromes, patient had a atypical pain. I cannot completely rule rule out gases with reflux disease because of the gym discharging him on a proton pump inhibitor her chest pain may be related to anxiety as well. -Atrial fibrillation presently rate controlled patient is not on any anticoagulation at this time patient appears to proximal A. fib anti-correlation issues please refer to cardiology documentation and PCPs documentation -Chronic kidney disease patient's creatinine is at his baseline -Mild 1 episode of hematuria which resolved no evidence of urinary tract infection patient will follow-up with urology as an outpatient Gastroesophageal reflux disease-Type 2 Diabetes Mellitus -Hyperkalemia Lisinopril Will Be Discontinued Patient Had Normal Systolic Function the past. If Needed Can Be Started on Low-Dose of Lisinopril As an Outpatient -Chronic Kidney Disease Stage III Secondary to Diabetic Nephropathy -Hypothyroidism -Hypertension -Anxiety disorder Have depression Patient is being discharged today.
[2019-02-09] MEDS ORDERED: CALCIUM ACETATE 667 MG CAP PO SCH (18:30)
[2019-02-13] MEDS ORDERED: CALCITRIOL 0.25 MCG CAP PO SCH (09:00)
[2019-03-10] MEDS ORDERED: ERGOCALCIFEROL 50,000 UNIT CAP PO SCH (09:00)
== END 2019-02-09 13:10 | disposition home or self-care (01) ==
LOC: EC 16:52 → 1SOBS 18:41
PROVIDERS: ADMIT Family Medicine; ATTEND Family Medicine
DX: R07.89 Other chest pain (principal); J06.9 Acute upper respiratory infection, unspecified; I48.0 Paroxysmal atrial fibrillation; I12.9 Hypertensive chronic kidney disease with stage 1 through stage 4 chronic kidney disease, or unspecified chronic kidney disease; E11.21 Type 2 diabetes mellitus with diabetic nephropathy; E11.22 Type 2 diabetes mellitus with diabetic chronic kidney disease; N18.3 Chronic kidney disease, stage 3 (moderate); E03.9 Hypothyroidism, unspecified; R31.9 Hematuria, unspecified; E78.5 Hyperlipidemia, unspecified; G25.81 Restless legs syndrome; E87.5 Hyperkalemia; G89.29 Other chronic pain; M54.9 Dorsalgia, unspecified; G20 Parkinson's disease; E11.40 Type 2 diabetes mellitus with diabetic neuropathy, unspecified; G62.9 Polyneuropathy, unspecified; F41.0 Panic disorder [episodic paroxysmal anxiety]; F32.9 Major depressive disorder, single episode, unspecified; E66.9 Obesity, unspecified; Z68.30 Body mass index [BMI] 30.0-30.9, adult; K21.9 Gastro-esophageal reflux disease without esophagitis; Z79.899 Other long term (current) drug therapy; Z79.890 Hormone replacement therapy; Z79.84 Long term (current) use of oral hypoglycemic drugs; Z79.82 Long term (current) use of aspirin; Z79.891 Long term (current) use of opiate analgesic; Z85.038 Personal history of other malignant neoplasm of large intestine; Z87.891 Personal history of nicotine dependence; Z97.0 Presence of artificial eye; Z98.0 Intestinal bypass and anastomosis status; Z80.8 Family history of malignant neoplasm of other organs or systems; Z82.49 Family history of ischemic heart disease and other diseases of the circulatory system
CPT/HCPCS: 99285; 36415; 94640; 94760; 93005; 83880; 80061; 80053; 82150; 83690; 83735; 84484 ×2; 85025; 85610; 85730; 71046; G0378 ×2

== ENCOUNTER 2019-03-09 14:06 | Emergency (ER) | payer MEDICARE ==
[2019-03-09 14:57] VITALS: PULSE 58; RESP 18
[2019-03-09] MEDS ORDERED: ACETAMINOPHEN TAB 325 MG TAB PO STA (16:04)
[2019-03-09] MEDS ORDERED: SODIUM CHLORIDE 0.9% 1,000 ML IV ONE (16:04)
--- NOTE | 2019-03-09 16:10 | ED ---
General Adult HPI - General Chief complaint: Headache Stated complaint: Arm pain, headache, hypertension Time Seen by Provider: 03/09/19 15:54 Source: patient Mode of arrival: ambulatory Limitations: no limitations - History of Present Illness Initial comments: 79-year-old male presenting with a tension throbbing headache that began 1-1/2 hours prior to arrival, is accompanied by left arm throbbing, was not alleviated by taking 2 Aleve's. He states he normally does get headaches and left arm pain but states this time is different secondary to the throbbing. It's the throbbing is causing him to have some sensations of numbness and weakness. Denies any history of CVA. He denies any vision change, head trauma, nausea, vomiting, chest pain. Patient states he is not on any blood thinners. He states that he had symptoms similar to this in the past they told him he was having a panic attack, however he does not know anxious at this time. - Related Data Home Medications Medication Instructions Recorded Confirmed Oxybutynin Chloride [Ditropan] 5 mg PO TID 01/28/14 02/08/19 Sertraline [Zoloft] 100 mg PO BID 02/18/16 02/08/19 QUEtiapine [SEROquel] 50 mg PO HS 08/09/16 02/08/19 rOPINIRole HCL [Requip] 0.5 mg PO HS 08/20/16 02/08/19 Ergocalciferol (Vitamin D2) 50,000 unit PO QMONTH 04/08/17 02/08/19 [Vitamin D2] Albuterol Inhaler [Ventolin Hfa 2 puff INHALATION RT-Q6H PRN 10/27/17 02/08/19 Inhaler] Primidone [Mysoline] 150 mg PO BID 10/27/17 02/08/19 Albuterol Nebulized [Ventolin 2.5 mg INHALATION RT-TID 12/11/18 02/08/19 Nebulized] Atenolol [Tenormin] 25 mg PO DAILY 12/11/18 02/08/19 Atorvastatin [Lipitor] 40 mg PO DAILY 12/11/18 02/08/19 Calcitriol 0.25 mcg PO TUTH 12/11/18 02/08/19 Calcium Acetate [PhosLo] 667 mg PO PC-SUPPER 12/11/18 02/08/19 Levothyroxine Sodium [Synthroid] 50 mcg PO DAILY 12/11/18 02/08/19 oxyCODONE-APAP 5-325MG [Percocet 1 tab PO DAILY PRN 12/11/18 02/08/19 5-325 mg] Furosemide [Lasix] 40 mg PO DAILY 12/15/18 02/08/19 Gabapentin 600 mg PO BID 12/15/18 02/08/19 Linagliptin [Tradjenta] 5 mg PO DAILY 12/15/18 02/08/19 Suvorexant [Belsomra] 10 mg PO HS 12/15/18 02/08/19 Aspirin 81 mg PO DAILY 01/28/19 02/08/19 Previous Rx's Medication Instructions Recorded Omeprazole [PriLOSEC] 40 mg PO AC-BRKFST #14 capsule. 10/24/16 Acetaminophen Tab [Tylenol] 650 mg PO Q6HR PRN tab 01/29/19 Nitroglycerin Sl Tabs [Nitrostat] 0.4 mg SUBLINGUAL Q5M PRN tab 01/29/19 Isosorbide Mononitrate ER [Imdur] 60 mg PO DAILY #30 tab.er.24h 02/09/19 Omeprazole [PriLOSEC] 40 mg PO AC-BRKFST #14 capsule. 02/09/19 Allergies Allergy/AdvReac Type Severity Reaction Status Date / Time No Known Allergies Allergy Verified 03/09/19 14:57 Review of Systems ROS Statement: Those systems with pertinent positive or pertinent negative responses have been documented in the HPI. Review of Systems Constitutional: Denies fever, chills Eyes: Denies change in vision, Denies pain Ears, nose, mouth, throat: Positive headaches, Denies sore throat Cardiovascular: Denies chest pain. Denies palpitations Respiratory: Denies shortness of breath, Denies cough Gastrointestinal: Denies abdominal pain. Denies nausea, vomiting, diarrhea. Genitourinary: Denies hematuria, Denies infections Musculoskeletal: Positive pain, Denies swelling Integumentary: Denies rash Neurological: Denies headache, focal weakness, focal numbness Psychiatric: Denies anxiety, Denies depression Hematologic/Lymphatic: Denies easy bleeding or bruising ROS Other: All systems not noted in ROS Statement are negative. Past Medical History Past Medical History: Atrial Fibrillation, Cancer, Diabetes Mellitus, GERD/Reflux, Hyperlipidemia, Hypertension, Renal Disease, Thyroid Disorder Additional Past Medical History / Comment(s): artificial Left eye, recent bleeding from left eye globe, restless leg sydrome, COLON CANCER, neuropathy, parkinsons, chronic back pain, History of Any Multi-Drug Resistant Organisms: None Reported Past Surgical History: Back Surgery, Bowel Resection, Heart Catheterization, Joint Replacement, Prostate Surgery Additional Past Surgical History / Comment(s): right knee replaced, back sx with titanium gavin Past Anesthesia/Blood Transfusion Reactions: Previous Problems w/ Anesthesia, Motion Sickness Additional Past Anesthesia/Blood Transfusion Reaction / Comment(s): "couldn't move left arm [post anesthesia]" Past Psychological History: Anxiety, Depression Smoking Status: Former smoker Past Alcohol Use History: None Reported Past Drug Use History: None Reported - Past Family History Mother Family Medical History: Cancer, Hyperlipidemia, Hypertension Additional Family Medical History / Comment(s): ca: brain Father Family Medical History: Hyperlipidemia, Hypertension General Exam - General Exam Comments Initial Comments: General: Awake, alert, No acute Distress HENT: Normocephalic. Atraumatic Eyes: PERRL on right. EOMI on right. Left eye artificial No scleral icterus. No injected conjunctiva Neck: Full ROM Chest/Lungs: Clear to auscultation bilaterally. No wheezing, rhonchi, or rales Cardiac: Regular rate, rhythm. No murmurs or rubs Abdomen/GI: Soft, nontender, nondistended. No rebound, guarding, or rigidity. Musculoskeletal: Full ROM Skin: Warm, dry, intact Neurologic: A/Ox3, no weakness, no sensory deficit, no abnormal gait, no coordination deficit. No pronator drift, finger to nose intact bilaterally, C5 through T1 sensation intact bilaterally. NIHSS 0. Limitations: no limitations Course Vital Signs 03/09/19 03/09/19 14:55 19:49 Temperature 98.2 F 98.1 F Pulse Rate 58 L 58 L Respiratory 18 18 Rate Blood Pressure 164/82 163/95 O2 Sat by Pulse 97 98 Oximetry EKG Findings - EKG Comments: EKG Findings:: EKG shows sinus bradycardia at a rate of 56 bpm. IA interval 196 ms. QRS duration 98 ms. QT/QTc 422/407.No ST segment elevation, depression. No prolonged QT/QTc or IA interval. No dysrythmia noted. Medical Decision Making - Medical Decision Making 79-year-old male presenting with headache and left arm throbbing and numbness. His exam the patient is awake, alert, no acute distress. VSS. Patient's NIH stroke scale is 0. There is no measurable numbness or weakness of his left upper extremity. At this time there is no indication for TPA and a code stroke was not called. Patient's laboratory workup is unremarkable. His CT was negative for acute process. I was unable to CTA him as his GFR was 35. Patient had no carotid bruit and it is unlikely he is having a large vessel occlusion as his NIHSS is o. Patient's symptoms resolved in the department. At this time I do not feel that they were secondary to a TIA, as he has been having a separate arm pain and separate headache in the past. There is no measurable deficit on exam, as stated previously. At this time no further emergent workup indicated. The patient is stable to follow up with his primary care physician. - Lab Data Result diagrams: 03/09/19 16:29 03/09/19 16:29 Lab Results 03/09/19 03/09/19 03/09/19 Range/Units 16:29 16:29 16:29 WBC 9.5 (3.8-10.6) k/uL RBC 3.84 L (4.30-5.90) m/uL Hgb 12.7 L (13.0-17.5) gm/dL Hct 39.3 (39.0-53.0) % MCV 102.2 H (80.0-100.0) fL MCH 33.2 (25.0-35.0) pg MCHC 32.5 (31.0-37.0) g/dL RDW 13.0 (11.5-15.5) % Plt Count 185 (150-450) k/uL Neutrophils % 75 % Lymphocytes % 15 % Monocytes % 3 % Eosinophils % 5 % Basophils % 1 % Neutrophils # 7.1 (1.3-7.7) k/uL Lymphocytes # 1.4 (1.0-4.8) k/uL Monocytes # 0.3 (0-1.0) k/uL Eosinophils # 0.4 (0-0.7) k/uL Basophils # 0.1 (0-0.2) k/uL Macrocytosis Slight Sodium 139 (137-145) mmol/L Potassium 4.6 (3.5-5.1) mmol/L Chloride 106 (98-107) mmol/L Carbon Dioxide 24 (22-30) mmol/L Anion Gap 9 mmol/L BUN 25 H (9-20) mg/dL Creatinine 1.77 H (0.66-1.25) mg/dL Est GFR (CKD-EPI)AfAm 41 (>60 ml/min/1.73 sqM) Est GFR (CKD-EPI)NonAf 35 (>60 ml/min/1.73 sqM) Glucose 148 H (74-99) mg/dL Calcium 8.3 L (8.4-10.2) mg/dL Troponin I <0.012 (0.000-0.034) ng/mL NT-Pro-B Natriuret Pep pg/mL 03/09/19 Range/Units 16:29 WBC (3.8-10.6) k/uL RBC (4.30-5.90) m/uL Hgb (13.0-17.5) gm/dL Hct (39.0-53.0) % MCV (80.0-100.0) fL MCH (25.0-35.0) pg MCHC (31.0-37.0) g/dL RDW (11.5-15.5) % Plt Count (150-450) k/uL Neutrophils % % Lymphocytes % % Monocytes % % Eosinophils % % Basophils % % Neutrophils # (1.3-7.7) k/uL Lymphocytes # (1.0-4.8) k/uL Monocytes # (0-1.0) k/uL Eosinophils # (0-0.7) k/uL Basophils # (0-0.2) k/uL Macrocytosis Sodium (137-145) mmol/L Potassium (3.5-5.1) mmol/L Chloride (98-107) mmol/L Carbon Dioxide (22-30) mmol/L Anion Gap mmol/L BUN (9-20) mg/dL Creatinine (0.66-1.25) mg/dL Est GFR (CKD-EPI)AfAm (>60 ml/min/1.73 sqM) Est GFR (CKD-EPI)NonAf (>60 ml/min/1.73 sqM) Glucose (74-99) mg/dL Calcium (8.4-10.2) mg/dL Troponin I (0.000-0.034) ng/mL NT-Pro-B Natriuret Pep 335 pg/mL Disposition Clinical Impression: Headache, CKD (chronic kidney disease) Disposition: HOME SELF-CARE Instructions (If sedation given, give patient instructions): Acute Headache (ED) Additional Instructions: Return to the emergency department if you have weakness in one arm or leg, if you have a facial droop, or if you develop slurred speech Is patient prescribed a controlled substance at d/c from ED?: No Referrals: Reilly Higginbotham MD [Primary Care Provider] - 1-2 days
[2019-03-09 16:54] LABS: Basophils # (A) 0.1 k/uL (0-0.2); Basophils % (A) 1 %; Eosinophils # (A) 0.4 k/uL (0-0.7); Eosinophils % (A) 5 %; HCT 39.3 % (39.0-53.0); HGB 12.7 gm/dL (13.0-17.5); Lymphocytes # (A) 1.4 k/uL (1.0-4.8); Lymphocytes % (A) 15 %; MCH 33.2 pg (25.0-35.0); MCHC 32.5 g/dL (31.0-37.0); MCV 102.2 fL (80.0-100.0); Macrocytosis Slight; Mean Platelet Volume 8.7; Monocytes # (A) 0.3 k/uL (0-1.0); Monocytes % (A) 3 %; Neutrophils # (A) 7.1 k/uL (1.3-7.7); Neutrophils % (A) 75 %; Platelet Count 185 k/uL (150-450); RBC 3.84 m/uL (4.30-5.90); WBC 9.5 k/uL (3.8-10.6)
[2019-03-09 17:02] LABS: Calcium 8.3 mg/dL (8.4-10.2); Potassium 4.6 mmol/L (3.5-5.1)
--- NOTE | 2019-03-09 18:06 | XR ---
EXAMINATION: XR chest 2V DATE AND TIME: 03/09/2019 4:52 PM CLINICAL INDICATION: PHH; Pain TECHNIQUE: Departmental protocol COMPARISON: 02/08/2019 FINDINGS: The lungs are clear. The pleural spaces are negative. The cardiac silhouette is mild-moderately enlarged. The remainder of the mediastinal silhouette is un remarkable. The skeletal structures and soft tissues are negative for acute findings. IMPRESSION: NO ACUTE PROCESS.
[2019-03-09 19:51] VITALS: BP 163/95; TEMP 98.1
--- NOTE | 2019-03-09 19:52 | CT ---
EXAMINATION: CT brain wo con DATE AND TIME: 03/09/2019 6:39 PM CLINICAL INDICATION: PHH; Papilledema TECHNIQUE: Standard departmental protocol COMPARISON: 05/05/2017 FINDINGS: The calvarium is intact. There is no intracranial hemorrhage. There is no intracranial mass or mass effect. No definite new intra-axial attenuation defect. The ventricular system and its relationship with the sulcal pattern and cisterns are all similar to t he prior study. The paranasal sinuses, middle ear cavities, and mastoid sinus air cells are clear. The orbits are unremarkable. IMPRESSION: NO ACUTE PROCESS.
== END 2019-03-09 20:34 | disposition home or self-care (01) ==
LOC: EC 14:06
DX: I12.9 Hypertensive chronic kidney disease with stage 1 through stage 4 chronic kidney disease, or unspecified chronic kidney disease (principal); N18.9 Chronic kidney disease, unspecified; R51 Headache; M79.602 Pain in left arm; R20.0 Anesthesia of skin; R53.1 Weakness; I48.91 Unspecified atrial fibrillation; E78.5 Hyperlipidemia, unspecified; E07.9 Disorder of thyroid, unspecified; G25.81 Restless legs syndrome; E11.40 Type 2 diabetes mellitus with diabetic neuropathy, unspecified; E11.22 Type 2 diabetes mellitus with diabetic chronic kidney disease; F41.9 Anxiety disorder, unspecified; F32.9 Major depressive disorder, single episode, unspecified; Z85.038 Personal history of other malignant neoplasm of large intestine; Z95.818 Presence of other cardiac implants and grafts; Z96.651 Presence of right artificial knee joint; Z87.891 Personal history of nicotine dependence; Z79.899 Other long term (current) drug therapy; Z79.890 Hormone replacement therapy; Z79.82 Long term (current) use of aspirin; Z79.84 Long term (current) use of oral hypoglycemic drugs
CPT/HCPCS: 36415; 70450; 71046; 80048; 83880; 84484; 85025; 93005; 96360; 96361; 99284

== ENCOUNTER → 2019-04-05 | Outpatient (CLI) | payer MEDICARE ==
--- NOTE | 2019-04-05 18:37 | PN ---
PROGRESS NOTE DATE OF SERVICE: 04/05/2019 79-year-old gentleman has been followed in the sleep Center for treatment of extremely severe obstructive sleep apnea-hypopnea syndrome. Recently, patient had a polysomnogram and CPAP titration and I discussed results of sleep studies with patient in detail. Today is his first visit after he was started on treatment with CPAP, he feels better with the machine, but does not like the mask and tube. He feels discomfort the tube is in his way when he is sleeping. I checked his CPAP unit. CPAP pressure is 10 cm of water. Usage is 24/30 nights but only 6 out of 30 nights more than 4 hours with average usage 2.7 hours. Leak is 25 L/minute. Apnea-hypopnea index only 1.3, which is absolutely normal. [place] Sleepiness Scale 9. MEDICATIONS: Levothyroxine, lisinopril, isosorbide, atenolol, omeprazole, gabapentin, oxybutynin, furosemide, ropinirole, sertraline, quetiapine, warfarin, Tradjenta, atorvastatin, Primidone, oxycodone, Belsomra, albuterol. PHYSICAL EXAM: Patient in no distress. BP 133/70, HR 56, RR 16, weight 178, temp 98.3, oxygen saturation at room air 96%. OROPHARYNX: Extremely low position of soft palate. Mallampati 4. Neck: Supple, no JVD. Thyroid is not palpable. LUNGS Clear to percussion and to auscultation. Good air exchange. No wheezing or rhonchi. HEART S1, S2 regular. No murmurs, gallops, or rubs. ABDOMEN Soft and nontender. Bowel sounds are present. No organomegaly appreciated. EXTREMITIES No clubbing or cyanosis. 1+ ankle edema bilaterally. CARE TRANSITIONS NURSE Awake, alert, and oriented X3. Cranial nerves 2 to 7 intact. There is no fasciculation or atrophy. noted. No focal deficits observed. IMPRESSION: 1. Extremely severe obstructive sleep apnea-hypopnea syndrome. Apnea-hypopnea index 71.1 with oxygen desaturation 67.3% on full control with CPAP at 10 cm of water. The patient started to use equipment but has some discomfort with the mask. 2. Hypertension. 3. Mild obesity. 4. Acid reflux. 5. Hypothyroidism. 6. History of atrial fibrillation in the past according to patient. 7. History of chronic obstructive pulmonary disease. 8. Status post total right knee replacement. 9. Status post knee surgery. 10.Status post neck surgery and back surgery. PLAN: 1. We will try Dream Wear nasal pillow mask. 2. Patient should continue to use CPAP equipment every night. 3. Sleep hygiene with regular time in bed for 7.5 to 8 hours. 4. Full precautions related to driving. No driving if feeling sleepiness. 5. Watching weight. Thank you very much for allowing me to participate in the management of your patient. Sincerely, Yared Banks MD, PhD, FAASM Diplomat of [employer] Inspector [place] [facility] [place] MMODL / IJN: [id number] /
== END | disposition home or self-care (01) ==
LOC: SLEEP 13:55
PROVIDERS: ATTEND Internal Medicine
DX: G47.33 Obstructive sleep apnea (adult) (pediatric) (principal); I10 Essential (primary) hypertension; E66.9 Obesity, unspecified; K21.9 Gastro-esophageal reflux disease without esophagitis; E03.9 Hypothyroidism, unspecified; Z86.79 Personal history of other diseases of the circulatory system; Z87.09 Personal history of other diseases of the respiratory system; Z79.01 Long term (current) use of anticoagulants; Z79.899 Other long term (current) drug therapy; Z96.651 Presence of right artificial knee joint; Z98.890 Other specified postprocedural states; Z99.89 Dependence on other enabling machines and devices

== ENCOUNTER 2019-04-18 07:50 | Day surgery (SDC) | payer MEDICARE ==
[2019-04-17 08:58] VITALS: BMI 28.1
[~2019-04-18 07:50] MED LIST changes: +LIDOCAINE 1% 20 ML VIAL (10MG/ML) FOR IV START INTRADERMA PRN
[2019-04-18] MEDS ORDERED: LACTATED RINGERS 1,000 ML IV ONE ×2 (08:20)
[2019-04-18 08:23] VITALS: TEMP 98.7
[2019-04-18 08:25] LABS: Glucose,Whole Blood 146 mg/dL (75-99)
[2019-04-18] MEDS ORDERED: PROPOFOL 10 MG/ML 20 ML VIAL IV ONE (08:28)
--- NOTE | 2019-04-18 08:39 | P.GSHP ---
History of Present Illness H&P Date: 04/18/19 CHIEF COMPLAINT: History of colon cancer HISTORY OF PRESENT ILLNESS: The patient is a 79-year-old male who presents for history of colon cancer and change in bowel habits. Lower endoscopy was offered for further evaluation and management. PAST MEDICAL HISTORY: Please see list. PAST SURGICAL HISTORY: Please see list. MEDICATIONS: Please see list. ALLERGIES: Please see list. SOCIAL HISTORY: No illicit drug use FAMILY HISTORY: No reports of Crohn disease or ulcerative colitis. REVIEW OF ORGAN SYSTEMS: CONSTITUTIONAL: No reports of fevers or chills. PHYSICAL EXAM: VITAL SIGNS: Stable GENERAL: Well-developed pleasant in no acute distress. HEENT: No scleral icterus. Extraocular movements grossly intact. Moist buccal mucosa. NECK: Supple without lymphadenopathy. CHEST: Unlabored respirations. Equal bilateral excursions. CARDIOVASCULAR: Regular rate and rhythm. Distal 2+ pulses. ABDOMEN: Soft, nontender, nondistended. MUSCULOSKELETAL: No clubbing, cyanosis, or edema. ASSESSMENT: 1. History of colon cancer. PLAN: 1. Recommend proceeding with a lower endoscopy Past Medical History Past Medical History: Atrial Fibrillation, Cancer, Diabetes Mellitus, GERD/Reflux, Hyperlipidemia, Hypertension, Renal Disease, Thyroid Disorder Additional Past Medical History / Comment(s): artificial Left eye,hx bleeding from left eye globe, restless leg sydrome, COLON CANCER-no chemo or radiation, neuropathy, parkinsons, chronic back pain, History of Any Multi-Drug Resistant Organisms: None Reported Past Surgical History: Back Surgery, Bowel Resection, Heart Catheterization, Joint Replacement, Prostate Surgery Additional Past Surgical History / Comment(s): right knee replaced, back sx with titanium gavin Past Anesthesia/Blood Transfusion Reactions: Previous Problems w/ Anesthesia Additional Past Anesthesia/Blood Transfusion Reaction / Comment(s): "couldn't move left arm after knee or back surgery lasted approx 1 hour post op- resolved",no hx blood transfusion Smoking Status: Former smoker - Past Family History Mother Family Medical History: Cancer, Hyperlipidemia, Hypertension Additional Family Medical History / Comment(s): ca: brain Father Family Medical History: Hyperlipidemia, Hypertension Medications and Allergies Home Medications Medication Instructions Recorded Confirmed Type Oxybutynin Chloride [Ditropan] 5 mg PO TID 01/28/14 04/17/19 History Sertraline [Zoloft] 100 mg PO BID 02/18/16 04/17/19 History QUEtiapine [SEROquel] 50 mg PO HS 08/09/16 04/17/19 History rOPINIRole HCL [Requip] 0.5 mg PO HS 08/20/16 04/17/19 History Albuterol Inhaler [Ventolin Hfa 2 puff INHALATION RT-Q6H PRN 10/27/17 04/17/19 History Inhaler] Primidone [Mysoline] 150 mg PO BID 10/27/17 04/17/19 History Albuterol Nebulized [Ventolin 2.5 mg INHALATION RT-TID 12/11/18 04/17/19 History Nebulized] Atenolol [Tenormin] 25 mg PO QAM 12/11/18 04/17/19 History Atorvastatin [Lipitor] 40 mg PO DAILY 12/11/18 04/17/19 History Calcitriol 0.25 mcg PO TUTH 12/11/18 04/17/19 History Calcium Acetate [PhosLo] 667 mg PO PC-SUPPER 12/11/18 04/17/19 History Levothyroxine Sodium [Synthroid] 50 mcg PO QAM 12/11/18 04/17/19 History oxyCODONE-APAP 5-325MG [Percocet 1 tab PO DAILY PRN 12/11/18 04/17/19 History 5-325 mg] Furosemide [Lasix] 40 mg PO DAILY 12/15/18 04/17/19 History Gabapentin 600 mg PO BID 12/15/18 04/17/19 History Linagliptin [Tradjenta] 5 mg PO DAILY 12/15/18 04/17/19 History Aspirin 81 mg PO DAILY 01/28/19 04/17/19 History Acetaminophen Tab [Tylenol] 650 mg PO Q6HR PRN tab 01/29/19 04/17/19 Rx Nitroglycerin Sl Tabs [Nitrostat] 0.4 mg SUBLINGUAL Q5M PRN tab 01/29/19 04/17/19 Rx Omeprazole [PriLOSEC] 40 mg PO AC-BRKFST #14 capsule. 02/09/19 04/17/19 Rx Ergocalciferol [Vitamin D2] 50,000 unit PO Q7D 04/17/19 04/17/19 History Lisinopril [Zestril] 5 mg PO QAM 04/17/19 04/17/19 History Allergies Allergy/AdvReac Type Severity Reaction Status Date / Time No Known Allergies Allergy Verified 04/17/19 08:43 Surgical - Exam Vital Signs Pulse Resp BP Pulse Ox 90 18 151/86 95 04/18/19 08:17 04/18/19 08:17 04/18/19 08:17 04/18/19 08:17 Results - Labs Abnormal Lab Results - Last 24 Hours (Table) 04/18/19 Range/Units 08:20 POC Glucose (mg/dL) 146 H (75-99) mg/dL
--- NOTE | 2019-04-18 08:55 | P.PCN ---
Date of Procedure: 04/18/19 Description of Procedure: PREOPERATIVE DIAGNOSIS: History of colon cancer Change in bowel habits POSTOPERATIVE DIAGNOSIS: History of right hemicolectomy History of colon cancer Change in bowel habits Sigmoid diverticulosis OPERATION: Colonoscopy to ileocolic anastomosis SURGEON: Santa Jorge MD. ANESTHESIA: MAC. INDICATIONS: The patient is a 79-year-old male who presents for colonoscopy evaluation with history of colon cancer and a change in bowel habits. Benefits and risks were described and informed consent was obtained. DESCRIPTION OF PROCEDURE: The patient had undergone Suprep. He had been brought into the operating room and laid in the left lateral decubitus position. After adequate intravenous sedation, the rectum was examined with 2% lidocaine jelly. the prostate was unremarkable. No external hemorrhoids were encountered. The rectal tone was within normal limits. No lesions were palpated in the rectal vault. An Olympus colonoscope was advance to the ileocecal anastomosis. The scope was removed with visualization of each mucosal fold. Moderate sigmoid diverticulosis was encountered. No colonic polyps were found. No evidence of focal colitis was found. Retroflexion of the scope demonstrated grade 1 internal hemorrhoids without active bleeding or inflammation. The colon was desufflated. The patient had tolerated the procedure well. Withdrawal time was over 6 minutes. FINDINGS: Aronchick preparation quality scale 2 (1-5) Internal hemorrhoids, grade 1 No external prolapsed hemorrhoids. No arteriovenous malformations. No adenomatous polyps. No focal colitis. Moderate sigmoid diverticulosis without diverticulitis RECOMMENDATIONS: Lower endoscopy in 5 years, 2023 Plan - Discharge Summary Discharge Rx Participant: No New Discharge Prescriptions: New Polyethylene Glycol 3350 [Miralax] 17 gm PO DAILY #30 packet Sennosides/Docusate Sodium [Denise Colace] 1 tab PO DAILY #30 tab No Action Oxybutynin Chloride [Ditropan] 5 mg PO TID Sertraline [Zoloft] 100 mg PO BID QUEtiapine [SEROquel] 50 mg PO HS rOPINIRole HCL [Requip] 0.5 mg PO HS Albuterol Inhaler [Ventolin Hfa Inhaler] 2 puff INHALATION RT-Q6H PRN PRN Reason: Shortness Of Breath Primidone [Mysoline] 150 mg PO BID Albuterol Nebulized [Ventolin Nebulized] 2.5 mg INHALATION RT-TID oxyCODONE-APAP 5-325MG [Percocet 5-325 mg] 1 tab PO DAILY PRN PRN Reason: Pain Levothyroxine Sodium [Synthroid] 50 mcg PO QAM Calcium Acetate [PhosLo] 667 mg PO PC-SUPPER Calcitriol 0.25 mcg PO TUTH Atorvastatin [Lipitor] 40 mg PO DAILY Atenolol [Tenormin] 25 mg PO QAM Linagliptin [Tradjenta] 5 mg PO DAILY Gabapentin 600 mg PO BID Furosemide [Lasix] 40 mg PO DAILY Aspirin 81 mg PO DAILY Nitroglycerin Sl Tabs [Nitrostat] 0.4 mg SUBLINGUAL Q5M PRN tab PRN Reason: Chest Pain Acetaminophen Tab [Tylenol] 650 mg PO Q6HR PRN tab PRN Reason: Fever And/ Or Pain Omeprazole [PriLOSEC] 40 mg PO AC-BRKFST #14 capsule. Ergocalciferol [Vitamin D2] 50,000 unit PO Q7D Lisinopril [Zestril] 5 mg PO QAM Discharge Medication List Oxybutynin Chloride [Ditropan] 5 mg PO TID 01/28/14 [History] Sertraline [Zoloft] 100 mg PO BID 02/18/16 [History] QUEtiapine [SEROquel] 50 mg PO HS 08/09/16 [History] rOPINIRole HCL [Requip] 0.5 mg PO HS 08/20/16 [History] Albuterol Inhaler [Ventolin Hfa Inhaler] 2 puff INHALATION RT-Q6H PRN 10/27/17 [History] Primidone [Mysoline] 150 mg PO BID 10/27/17 [History] Albuterol Nebulized [Ventolin Nebulized] 2.5 mg INHALATION RT-TID 12/11/18 [History] Atenolol [Tenormin] 25 mg PO QAM 12/11/18 [History] Atorvastatin [Lipitor] 40 mg PO DAILY 12/11/18 [History] Calcitriol 0.25 mcg PO TUTH 12/11/18 [History] Calcium Acetate [PhosLo] 667 mg PO PC-SUPPER 12/11/18 [History] Levothyroxine Sodium [Synthroid] 50 mcg PO QAM 12/11/18 [History] oxyCODONE-APAP 5-325MG [Percocet 5-325 mg] 1 tab PO DAILY PRN 12/11/18 [History] Furosemide [Lasix] 40 mg PO DAILY 12/15/18 [History] Gabapentin 600 mg PO BID 12/15/18 [History] Linagliptin [Tradjenta] 5 mg PO DAILY 12/15/18 [History] Aspirin 81 mg PO DAILY 01/28/19 [History] Acetaminophen Tab [Tylenol] 650 mg PO Q6HR PRN tab 01/29/19 [Rx] Nitroglycerin Sl Tabs [Nitrostat] 0.4 mg SUBLINGUAL Q5M PRN tab 01/29/19 [Rx] Omeprazole [PriLOSEC] 40 mg PO AC-BRKFST #14 capsule. 02/09/19 [Rx] Ergocalciferol [Vitamin D2] 50,000 unit PO Q7D 04/17/19 [History] Lisinopril [Zestril] 5 mg PO QAM 04/17/19 [History] Polyethylene Glycol 3350 [Miralax] 17 gm PO DAILY #30 packet 04/18/19 [Rx] Sennosides/Docusate Sodium [Denise Colace] 1 tab PO DAILY #30 tab 04/18/19 [Rx] Follow up Appointment(s)/Referral(s): Santa Jorge MD [STAFF PHYSICIAN] - 05/01/19 Patient Instructions/Handouts: Constipation (DC), Diverticulosis (DC) Activity/Diet/Wound Care/Special Instructions: Please take new medications for constipation. Drink 8 cups of water today. Discharge Disposition: HOME SELF-CARE
[2019-04-18 08:57] VITALS: RESP 16
[2019-04-18 09:14] VITALS: BP 124/78; PULSE 72
== END 2019-04-18 09:44 | disposition home or self-care (01) ==
LOC: ORWHC2ENDO 07:50
PROVIDERS: ATTEND Surgery Plastic and Reconstructive Surgery
DX: K57.30 Diverticulosis of large intestine without perforation or abscess without bleeding (principal); K64.8 Other hemorrhoids; Z85.038 Personal history of other malignant neoplasm of large intestine; Z90.49 Acquired absence of other specified parts of digestive tract; Z98.0 Intestinal bypass and anastomosis status; I12.9 Hypertensive chronic kidney disease with stage 1 through stage 4 chronic kidney disease, or unspecified chronic kidney disease; E11.22 Type 2 diabetes mellitus with diabetic chronic kidney disease; N18.9 Chronic kidney disease, unspecified; E78.5 Hyperlipidemia, unspecified; I48.91 Unspecified atrial fibrillation; K21.9 Gastro-esophageal reflux disease without esophagitis; E11.40 Type 2 diabetes mellitus with diabetic neuropathy, unspecified; E07.9 Disorder of thyroid, unspecified; G20 Parkinson's disease; G25.81 Restless legs syndrome; G89.29 Other chronic pain; M54.9 Dorsalgia, unspecified; G47.33 Obstructive sleep apnea (adult) (pediatric); Z87.891 Personal history of nicotine dependence; Z79.890 Hormone replacement therapy; Z79.82 Long term (current) use of aspirin; Z79.84 Long term (current) use of oral hypoglycemic drugs; Z79.899 Other long term (current) drug therapy; Z79.891 Long term (current) use of opiate analgesic; Z96.651 Presence of right artificial knee joint; Z97.0 Presence of artificial eye; Z98.1 Arthrodesis status; Z80.8 Family history of malignant neoplasm of other organs or systems; Z83.438 Family history of other disorder of lipoprotein metabolism and other lipidemia; Z82.49 Family history of ischemic heart disease and other diseases of the circulatory system
CPT/HCPCS: 45378; J2704

== ENCOUNTER 2019-06-22 16:19 | Observation (INO) | payer MEDICARE ==
[2019-06-22] MEDS ORDERED: NITROGLYCERIN OINT 1 INCH/GM PACKET TOPICAL STA (16:55)
[2019-06-22] MEDS ORDERED: ASPIRIN 81 MG PO STA (16:55)
--- NOTE | 2019-06-22 17:03 | ED ---
General Adult HPI - General Chief complaint: Chest Pain Stated complaint: chest pain Time Seen by Provider: 06/22/19 16:30 Source: patient, family, RN notes reviewed Mode of arrival: ambulatory Limitations: no limitations - History of Present Illness Initial comments: Patient is a pleasant 79-year-old male presenting to the emergency Department with complaints of chest discomfort. Patient does have had congestion starting yesterday and some chills. Patient has noticed some chest discomfort throughout the day today. Discomfort is mild and feels like a throbbing. Discomfort is left upper chest. No associated dyspnea or nausea. Patient was a little bit sweaty earlier today. No history of similar symptoms previously. Patient denies any history of cardiac problems. Discomfort is mild without radiation. - Related Data Home Medications Medication Instructions Recorded Confirmed Oxybutynin Chloride [Ditropan] 5 mg PO TID 01/28/14 06/22/19 Sertraline [Zoloft] 100 mg PO BID 02/18/16 06/22/19 QUEtiapine [SEROquel] 50 mg PO HS 08/09/16 06/22/19 rOPINIRole HCL [Requip] 0.5 mg PO HS 08/20/16 06/22/19 Primidone [Mysoline] 150 mg PO BID 10/27/17 06/22/19 Albuterol Nebulized [Ventolin 2.5 mg INHALATION RT-TID 12/11/18 06/22/19 Nebulized] Atenolol [Tenormin] 25 mg PO QAM 12/11/18 06/22/19 Atorvastatin [Lipitor] 40 mg PO DAILY 12/11/18 06/22/19 Calcitriol 0.25 mcg PO MOFR 12/11/18 06/22/19 Calcium Acetate [PhosLo] 667 mg PO PC-SUPPER 12/11/18 06/22/19 Levothyroxine Sodium [Synthroid] 50 mcg PO QAM 12/11/18 06/22/19 oxyCODONE-APAP 5-325MG [Percocet 1 tab PO DAILY PRN 12/11/18 06/22/19 5-325 mg] Furosemide [Lasix] 40 mg PO DAILY 12/15/18 06/22/19 Gabapentin 600 mg PO BID 12/15/18 06/22/19 Ergocalciferol [Vitamin D2] 50,000 unit PO WE 04/17/19 06/22/19 Lisinopril [Zestril] 5 mg PO QAM 04/17/19 06/22/19 Insulin NPH Hum/Reg Insulin Hm 20 unit SQ QAM 06/22/19 06/22/19 [NovoLIN 70-30 100 UNIT/ML VIAL] Therabreath Dry Mouth 1 spray PO DAILY 06/22/19 06/22/19 Previous Rx's Medication Instructions Recorded Omeprazole [PriLOSEC] 40 mg PO AC-BRKFST #14 capsule. 02/09/19 Allergies Allergy/AdvReac Type Severity Reaction Status Date / Time No Known Allergies Allergy Verified 06/22/19 17:07 Review of Systems ROS Statement: Those systems with pertinent positive or pertinent negative responses have been documented in the HPI. ROS Other: All systems not noted in ROS Statement are negative. Constitutional: Denies: fever Eyes: Denies: eye pain ENT: Denies: ear pain Respiratory: Denies: dyspnea Cardiovascular: Reports: chest pain Endocrine: Reports: fatigue Gastrointestinal: Denies: abdominal pain Musculoskeletal: Denies: back pain Skin: Denies: rash Neurological: Denies: weakness Past Medical History Past Medical History: Atrial Fibrillation, Cancer, Diabetes Mellitus, GERD/Reflux, Hyperlipidemia, Hypertension, Renal Disease, Thyroid Disorder Additional Past Medical History / Comment(s): artificial Left eye,hx bleeding from left eye globe, restless leg sydrome, COLON CANCER-no chemo or radiation, neuropathy, parkinsons, chronic back pain, History of Any Multi-Drug Resistant Organisms: None Reported Past Surgical History: Back Surgery, Bowel Resection, Heart Catheterization, Joint Replacement, Prostate Surgery Additional Past Surgical History / Comment(s): right knee replaced, back sx with titanium gavin Past Anesthesia/Blood Transfusion Reactions: Previous Problems w/ Anesthesia Additional Past Anesthesia/Blood Transfusion Reaction / Comment(s): "couldn't m ove left arm after knee or back surgery lasted approx 1 hour post op- resolved",no hx blood transfusion Past Psychological History: Anxiety, Depression Smoking Status: Former smoker Past Alcohol Use History: None Reported Past Drug Use History: None Reported - Past Family History Mother Family Medical History: Cancer, Hyperlipidemia, Hypertension Additional Family Medical History / Comment(s): ca: brain Father Family Medical History: Hyperlipidemia, Hypertension General Exam Limitations: no limitations General appearance: alert, in no apparent distress Head exam: Present: normocephalic Eye exam: Present: normal appearance, PERRL ENT exam: Present: normal oropharynx Neck exam: Present: normal inspection Respiratory exam: Present: normal lung sounds bilaterally. Absent: chest wall tenderness Cardiovascular Exam: Present: regular rate, normal rhythm Expanded Peripheral pulses: 2+: Radial (R), Radial (L), Posterior Tibialis (R), Posterior Tibialis (L), Dorsalis Pedis (R), Dorsalis Pedis (L) GI/Abdominal exam: Present: soft. Absent: tenderness Extremities exam: Present: normal inspection. Absent: pedal edema, calf tenderness Back exam: Present: normal inspection Neurological exam: Present: alert Psychiatric exam: Present: normal affect, normal mood Skin exam: Present: normal color Course Vital Signs 06/22/19 06/22/19 16:22 18:21 Temperature 97.9 F Pulse Rate 58 L 56 L Respiratory 20 18 Rate Blood Pressure 166/68 169/83 O2 Sat by Pulse 98 97 Oximetry EKG Findings - EKG Comments: EKG Findings:: Sinus bradycardia 56. NJ 202, first AV block. QRS 98. QT 420. QTc 405. Normal axis. Normal QRS. No acute ST change. Medical Decision Making - Medical Decision Making Patient reevaluated and resting comfortably in bed. Patient and family updated on results and plan. Case was discussed with practitioner Tesha, covering for Dr. Colon, covering for Dr. Higginbotham, who will admit. - Lab Data Result diagrams: 06/22/19 17:14 06/22/19 17:14 Lab Results 06/22/19 06/22/19 06/22/19 Range/Units 17:14 17:14 17:14 WBC 7.2 (3.8-10.6) k/uL RBC 3.62 L (4.30-5.90) m/uL Hgb 12.5 L (13.0-17.5) gm/dL Hct 36.5 L (39.0-53.0) % MCV 100.8 H (80.0-100.0) fL MCH 34.5 (25.0-35.0) pg MCHC 34.2 (31.0-37.0) g/dL RDW 13.4 (11.5-15.5) % Plt Count 220 (150-450) k/uL Neutrophils % 68 % Lymphocytes % 22 % Monocytes % 5 % Eosinophils % 4 % Basophils % 1 % Neutrophils # 4.9 (1.3-7.7) k/uL Lymphocytes # 1.6 (1.0-4.8) k/uL Monocytes # 0.3 (0-1.0) k/uL Eosinophils # 0.3 (0-0.7) k/uL Basophils # 0.1 (0-0.2) k/uL PT (9.0-12.0) sec INR (<1.2) APTT (22.0-30.0) sec Sodium 140 (137-145) mmol/L Potassium 4.4 (3.5-5.1) mmol/L Chloride 108 H (98-107) mmol/L Carbon Dioxide 20 L (22-30) mmol/L Anion Gap 12 mmol/L BUN 25 H (9-20) mg/dL Creatinine 1.89 H (0.66-1.25) mg/dL Est GFR (CKD-EPI)AfAm 38 (>60 ml/min/1.73 sqM) Est GFR (CKD-EPI)NonAf 33 (>60 ml/min/1.73 sqM) Glucose 156 H (74-99) mg/dL Calcium 8.4 (8.4-10.2) mg/dL Magnesium 2.6 H (1.6-2.3) mg/dL Total Bilirubin 0.2 (0.2-1.3) mg/dL AST 20 (17-59) U/L ALT 23 (21-72) U/L Alkaline Phosphatase 196 H (38-126) U/L Troponin I (0.000-0.034) ng/mL Total Protein 7.2 (6.3-8.2) g/dL Albumin 4.3 (3.5-5.0) g/dL Influenza Type A RNA Not Detected (Not Detectd) Influenza Type B (PCR) Not Detected (Not Detectd) 06/22/19 06/22/19 Range/Units 17:14 17:14 WBC (3.8-10.6) k/uL RBC (4.30-5.90) m/uL Hgb (13.0-17.5) gm/dL Hct (39.0-53.0) % MCV (80.0-100.0) fL MCH (25.0-35.0) pg MCHC (31.0-37.0) g/dL RDW (11.5-15.5) % Plt Count (150-450) k/uL Neutrophils % % Lymphocytes % % Monocytes % % Eosinophils % % Basophils % % Neutrophils # (1.3-7.7) k/uL Lymphocytes # (1.0-4.8) k/uL Monocytes # (0-1.0) k/uL Eosinophils # (0-0.7) k/uL Basophils # (0-0.2) k/uL PT 10.3 (9.0-12.0) sec INR 1.0 (<1.2) APTT 40.1 H (22.0-30.0) sec Sodium (137-145) mmol/L Potassium (3.5-5.1) mmol/L Chloride (98-107) mmol/L Carbon Dioxide (22-30) mmol/L Anion Gap mmol/L BUN (9-20) mg/dL Creatinine (0.66-1.25) mg/dL Est GFR (CKD-EPI)AfAm (>60 ml/min/1.73 sqM) Est GFR (CKD-EPI)NonAf (>60 ml/min/1.73 sqM) Glucose (74-99) mg/dL Calcium (8.4-10.2) mg/dL Magnesium (1.6-2.3) mg/dL Total Bilirubin (0.2-1.3) mg/dL AST (17-59) U/L ALT (21-72) U/L Alkaline Phosphatase (38-126) U/L Troponin I <0.012 (0.000-0.034) ng/mL Total Protein (6.3-8.2) g/dL Albumin (3.5-5.0) g/dL Influenza Type A RNA (Not Detectd) Influenza Type B (PCR) (Not Detectd) - Radiology Data Radiology results: image reviewed (X-ray shows no acute process) Disposition Clinical Impression: Chest pain Disposition: ADMITTED IP TO THIS [facility] Is patient prescribed a controlled substance at d/c from ED?: No Referrals: Reilly Higginbotham MD [Primary Care Provider] - 1-2 days Decision Time: 19:16
[2019-06-22 17:24] LABS: Basophils # (A) 0.1 k/uL (0-0.2); Basophils % (A) 1 %; Eosinophils # (A) 0.3 k/uL (0-0.7); Eosinophils % (A) 4 %; HCT 36.5 % (39.0-53.0); HGB 12.5 gm/dL (13.0-17.5); Lymphocytes # (A) 1.6 k/uL (1.0-4.8); Lymphocytes % (A) 22 %; MCH 34.5 pg (25.0-35.0); MCHC 34.2 g/dL (31.0-37.0); MCV 100.8 fL (80.0-100.0); Mean Platelet Volume 7.7; Monocytes # (A) 0.3 k/uL (0-1.0); Monocytes % (A) 5 %; Neutrophils # (A) 4.9 k/uL (1.3-7.7); Neutrophils % (A) 68 %; Platelet Count 220 k/uL (150-450); RBC 3.62 m/uL (4.30-5.90); RDW 13.4 % (11.5-15.5); WBC 7.2 k/uL (3.8-10.6)
[2019-06-22 17:30] LABS: Partial Thromboplastin Time 40.1 sec (22.0-30.0); Prothrombin Time 10.3 sec (9.0-12.0)
[2019-06-22 17:40] LABS: Albumin 4.3 g/dL (3.5-5.0); Calcium 8.4 mg/dL (8.4-10.2); Magnesium 2.6 mg/dL (1.6-2.3); Potassium 4.4 mmol/L (3.5-5.1); Total Bilirubin 0.2 mg/dL (0.2-1.3); Total Protein 7.2 g/dL (6.3-8.2)
--- NOTE | 2019-06-22 17:44 | XR ---
EXAMINATION TYPE: XR chest 2V DATE OF EXAM: 06/22/2019 COMPARISON: 03/01/2019 HISTORY: Chest pain TECHNIQUE: Frontal and lateral views of the chest are obtained. FINDINGS: There is no heart failure. There are chest leads. Thoracic aorta is atheromatous. There is no sign of pleural effusion. There is small 1.5 cm infiltrate at the left lung base. The bony thorax is intact. There are chest leads. IMPRESSION: Small infiltrate left lower lobe probably not changed compared to 03/01/2019 and related to scarring. Also not changed compared to 08/03/2017. No evidence of active cardiopulmonary disease.
[2019-06-22] MEDS ORDERED: NITROGLYCERIN SL TABS 0.4 MG TAB SUBLINGUAL PRN (20:45)
[2019-06-22 22:16] VITALS: BMI 29.3
[2019-06-22] MEDS ORDERED: oxyCODONE-APAP 5-325MG 1 EACH TAB PO PRN (22:33)
[2019-06-22] MEDS ORDERED: QUEtiapine 50 MG TAB PO SCH (22:45)
[2019-06-22] MEDS: SERTRALINE 100 MG TAB PO SCH (23:48)
[2019-06-22] MEDS: GABAPENTIN 300 MG CAP PO SCH (23:48)
[2019-06-22] MEDS: PRIMIDONE 50 MG TAB PO SCH (23:48)
[2019-06-22] MEDS: ATORVASTATIN 40 MG TAB PO SCH (23:49)
[2019-06-23] MEDS: NITROGLYCERIN OINT 1 INCH/GM PACKET TOPICAL SCH ×3 (01:31→12:08)
[2019-06-23 06:23] LABS: Cholesterol 150 mg/dL (<200); HDL Cholesterol 22 mg/dL (40-60); Triglycerides 432 mg/dL (<150)
[2019-06-23] MEDS ORDERED: LEVOTHYROXINE 50 MCG TAB PO SCH (06:30)
[2019-06-23 06:35] LABS: Glucose,Whole Blood 148 mg/dL (75-99)
[2019-06-23] MEDS: ALBUTEROL NEBULIZED 2.5 MG/3 ML INHALATION SCH ×2 (07:03→13:20)
--- NOTE | 2019-06-23 07:25 | P.CRDCN ---
History of Present Illness Consult date: 06/23/19 Chief complaint: chest pain History of present illness: This is a pleasant 79-year-old gentleman who sees Dr. Green in the office as an outpatient with a past medical history significant for paroxysmal atrial fibrillation, hypertension, and dyslipidemia, presented to the hospital because he was not feeling well. The patient describes "fluttering sensation" in the chest without any discomfort in the chest. No shortness of breath. No dizzi ness or lightheadedness. And no syncope. He was admitted to the hospital a few months ago with a chest discomfort and at that point he was ruled out for acute coronary event. In January 2019 he underwent a myocardial perfusion imaging stress test and that came in to be unremarkable. During this admission he was ruled out for acute coronary event. The EKG showed sinus mechanism without ischemic ST or T-wave abnormalities. 3 sets of cardiac enzymes came in to be unremarkable. The chest x-ray did not show any acute abnormalities. The rest of the blood work came in to be unremarkable. The patient expressed the wishes that he would like to go home. Currently he is chest pain-free. From a cardiovascular standpoint of view, the patient can be discharged home and follow with Dr. Green as an outpatient. Past Medical History Past Medical History: Atrial Fibrillation, Cancer, Diabetes Mellitus, GERD/Reflux, Hyperlipidemia, Hypertension, Renal Disease, Thyroid Disorder Additional Past Medical History / Comment(s): artificial Left eye,hx bleeding from left eye globe, restless leg sydrome, COLON CANCER-no chemo or radiation, neuropathy, parkinsons, chronic back pain, History of Any Multi-Drug Resistant Organisms: None Reported Past Surgical History: Back Surgery, Bowel Resection, Heart Catheterization, Joint Replacement, Prostate Surgery Additional Past Surgical History / Comment(s): right knee replaced, back sx with titanium gavin Past Anesthesia/Blood Transfusion Reactions: Previous Problems w/ Anesthesia Additional Past Anesthesia/Blood Transfusion Reaction / Comment(s): "couldn't move left arm after knee or back surgery lasted approx 1 hour post op- resolved",no hx blood transfusion Past Psychological History: Anxiety, Depression Smoking Status: Former smoker Past Alcohol Use History: None Reported Additional Past Alcohol Use History / Comment(s): smoking: started 1961 stopped 1974 Past Drug Use History: None Reported - Past Family History Mother Family Medical History: Cancer, Hyperlipidemia, Hypertension Additional Family Medical History / Comment(s): ca: brain Father Family Medical History: Hyperlipidemia, Hypertension Medications and Allergies Home Medications Medication Instructions Recorded Confirmed Type Oxybutynin Chloride [Ditropan] 5 mg PO TID 01/28/14 06/22/19 History Sertraline [Zoloft] 100 mg PO BID 02/18/16 06/22/19 History QUEtiapine [SEROquel] 50 mg PO HS 08/09/16 06/22/19 History rOPINIRole HCL [Requip] 0.5 mg PO HS 08/20/16 06/22/19 History Primidone [Mysoline] 150 mg PO BID 10/27/17 06/22/19 History Albuterol Nebulized [Ventolin 2.5 mg INHALATION RT-TID 12/11/18 06/22/19 History Nebulized] Atenolol [Tenormin] 25 mg PO QAM 12/11/18 06/22/19 History Atorvastatin [Lipitor] 40 mg PO DAILY 12/11/18 06/22/19 History Calcitriol 0.25 mcg PO MOFR 12/11/18 06/22/19 History Calcium Acetate [PhosLo] 667 mg PO PC-SUPPER 12/11/18 06/22/19 History Levothyroxine Sodium [Synthroid] 50 mcg PO QAM 12/11/18 06/22/19 History oxyCODONE-APAP 5-325MG [Percocet 1 tab PO DAILY PRN 12/11/18 06/22/19 History 5-325 mg] Furosemide [Lasix] 40 mg PO DAILY 12/15/18 06/22/19 History Gabapentin 600 mg PO BID 12/15/18 06/22/19 History Omeprazole [PriLOSEC] 40 mg PO AC-BRKFST #14 capsule. 02/09/19 06/22/19 Rx Ergocalciferol [Vitamin D2] 50,000 unit PO WE 04/17/19 06/22/19 History Lisinopril [Zestril] 5 mg PO QAM 04/17/19 06/22/19 History Insulin NPH Hum/Reg Insulin Hm 20 unit SQ QAM 06/22/19 06/22/19 History [NovoLIN 70-30 100 UNIT/ML VIAL] Therabreath Dry Mouth 1 spray PO DAILY 06/22/19 06/22/19 History Allergies Allergy/AdvReac Type Severity Reaction Status Date / Time No Known Allergies Allergy Verified 06/22/19 17:07 Physical Exam Vitals: Vital Signs Temp Pulse Pulse Resp BP BP Pulse Ox 06/23/19 07:12 60 16 06/23/19 07:03 56 L 16 96 06/23/19 04:00 98.0 F 55 L 15 132/63 98 06/22/19 22:10 63 06/22/19 21:58 97.5 F L 66 15 145/48 97 06/22/19 21:53 98 F 63 18 183/91 98 06/22/19 20:14 98.2 F 56 L 18 161/80 97 06/22/19 18:21 56 L 18 169/83 97 06/22/19 16:22 97.9 F 58 L 20 166/68 98 Intake and Output 06/22/19 06/23/19 06/23/19 22:59 06:59 14:59 Other: # Voids 1 Weight 77.564 kg - Constitutional General appearance: no acute distress - Respiratory Respiratory: bilateral: CTA - Cardiovascular Rhythm: regular Heart sounds: normal: S1, S2 Results 06/22/19 17:14 06/22/19 17:14 Cardiac Enzymes 06/22/19 06/22/19 06/22/19 Range/Units 17:14 17:14 23:30 AST 20 (17-59) U/L Troponin I <0.012 <0.012 (0.000-0.034) ng/mL 06/23/19 Range/Units 05:33 AST (17-59) U/L Troponin I <0.012 (0.000-0.034) ng/mL Coagulation 06/22/19 Range/Units 17:14 PT 10.3 (9.0-12.0) sec APTT 40.1 H (22.0-30.0) sec Lipids 06/23/19 Range/Units 05:33 Triglycerides 432 H (<150) mg/dL Cholesterol 150 (<200) mg/dL HDL Cholesterol 22 L (40-60) mg/dL CBC 06/22/19 Range/Units 17:14 WBC 7.2 (3.8-10.6) k/uL RBC 3.62 L (4.30-5.90) m/uL Hgb 12.5 L (13.0-17.5) gm/dL Hct 36.5 L (39.0-53.0) % Plt Count 220 (150-450) k/uL Comprehensive Metabolic Panel 06/22/19 Range/Units 17:14 Sodium 140 (137-145) mmol/L Potassium 4.4 (3.5-5.1) mmol/L Chloride 108 H (98-107) mmol/L Carbon Dioxide 20 L (22-30) mmol/L BUN 25 H (9-20) mg/dL Creatinine 1.89 H (0.66-1.25) mg/dL Glucose 156 H (74-99) mg/dL Calcium 8.4 (8.4-10.2) mg/dL AST 20 (17-59) U/L ALT 23 (21-72) U/L Alkaline Phosphatase 196 H (38-126) U/L Total Protein 7.2 (6.3-8.2) g/dL Albumin 4.3 (3.5-5.0) g/dL Current Medications Generic Name Dose Route Start Last Admin Trade Name Freq PRN Reason Stop Dose Admin Albuterol Sulfate 2.5 mg 06/23/19 08:00 06/23/19 07:03 Ventolin Nebulized INHALATION 2.5 mg RT-TID OCTAVIO Administration Aspirin 325 mg 06/23/19 09:00 Aspirin PO DAILY [facility] Atorvastatin Calcium 40 mg 06/22/19 22:45 06/22/19 23:49 Lipitor PO 40 mg DAILY OCTAVIO Administration Calcitriol 0.25 mcg 06/25/19 09:00 Rocaltrol PO MoFr@0900 [facility] Ergocalciferol 50,000 unit 06/27/19 09:00 Vitamin D2 PO We@0900 [facility] Famotidine 20 mg 06/23/19 09:00 Pepcid PO DAILY [facility] Gabapentin 600 mg 06/22/19 22:45 06/22/19 23:48 Neurontin PO 600 mg BID OCTAVIO Administration Insulin Aspart 0 unit 06/23/19 07:30 Novolog SQ ACHS [facility] Protocol Levothyroxine Sodium 50 mcg 06/23/19 06:30 06/23/19 05:45 Synthroid PO 50 mcg QAM@0630 [facility] Administration Nitroglycerin 0.4 mg 06/22/19 20:45 Nitrostat SUBLINGUAL Q5M PRN Chest Pain Nitroglycerin 1 inch 06/23/19 00:00 06/23/19 05:46 Nitro-Bid Oint TOPICAL Not Given Q6HR [facility] Oxybutynin Chloride 5 mg 06/23/19 09:00 Ditropan PO TID OCTAVIO Oxycodone/Acetaminophen 1 each 06/22/19 22:33 Percocet 5-325 PO DAILY PRN Pain Primidone 150 mg 06/22/19 22:45 06/22/19 23:48 Mysoline PO 150 mg BID OCT[facility]IO Administration Quetiapine Fumarate 50 mg 06/22/19 22:45 06/22/19 23:47 Seroquel PO 50 mg HS OCT[facility]IO Administration Ropinirole HCl 0.5 mg 06/22/19 22:45 06/22/19 23:48 Requip PO 0.5 mg HS OCTAVIO Administration Sertraline HCl 100 mg 06/22/19 22:45 06/22/19 23:48 Zoloft PO 100 mg BID OCT[facility]IO Administration Sodium Chloride 10 ml 06/22/19 21:00 06/22/19 22:16 Saline Flush IV 10 ml BID OCTAVIO Administration Intake and Output 06/22/19 06/23/19 06/23/19 22:59 06:59 14:59 Other: # Voids 1 Weight 77.564 kg 06/22/19 17:14 06/22/19 17:14 Assessment and Plan Assessment: Assessment #1 atypical chest discomfort which has resolved #2 paroxysmal atrial fibrillation #3 hypertension #4 dyslipidemia Plan Acute coronary event was ruled out The patient would like to be discharged home From the cardiovascular standpoint of view, the patient can be discharged home.
[2019-06-23 08:15] VITALS: RESP 18
[2019-06-23] MEDS: INSULIN ASPART (NovoLOG) 100 UNIT/ML VIAL SQ SCH ×2 (08:31→12:15)
[2019-06-23] MEDS ORDERED: FAMOTIDINE 20 MG TAB PO SCH (09:00)
[2019-06-23] MEDS ORDERED: OXYBUTYNIN CHLORIDE 5 MG TAB PO SCH (09:00)
[2019-06-23] MEDS ORDERED: ASPIRIN 325 MG TAB PO SCH (09:00)
[2019-06-23] MEDS: PRIMIDONE 50 MG TAB PO SCH (09:08)
[2019-06-23] MEDS: SERTRALINE 100 MG TAB PO SCH (09:08)
[2019-06-23] MEDS: GABAPENTIN 300 MG CAP PO SCH (09:08)
[2019-06-23] MEDS: ATORVASTATIN 40 MG TAB PO SCH (09:08)
[2019-06-23 11:29] LABS: Glucose,Whole Blood 224 mg/dL (75-99)
[2019-06-23 12:03] VITALS: BP 166/75; PULSE 64; TEMP 98.3
--- NOTE | 2019-06-23 13:03 | P.HPIM ---
History of Present Illness H&P Date: 06/23/19 Chief Complaint: Chest discomfort Mr. Duncan is an 79-year-old male with a past medical history of atrial fibrillation, diabetes mellitus, hypertension, hyperlipidemia, thyroid disorder, restless leg, colon cancer history, chronic low back pain coming into the hospital with a chief complaint of chest discomfort. Patient stated that he was having chest Discomfort all through the day substernal that was throbbing in nature and it was radiating to his upper chest. Patient denied having any associated dizziness or difficulty in breathing. No nausea vomiting. Patient does not have any history of coronary artery disease. Patient had a stress test done in January 2019 that was unremarkable. And during this admission patient had an EKG that was within normal limits and 3 sets of cardiac enzymes that are within normal limits. Currently the patient is sitting in the bed and states that his chest pain free and wants to go home. Patient's labs were reviewed and within normal limits. Patient denied having any fevers chills or rigors. No cough or difficulty in breathing. No abdominal pain nausea vomiting or diarrhea. No dysuria or hematuria. Patient denies having any headaches blurring of vision or weakness of his extremities. Patient was evaluated by cardiology Dr. Flood and was stable for discharge. He is advised to follow-up with his senior reliability engineer Dr. Green. Review of Systems REVIEW OF SYSTEMS: PSYCH: No anxiety or depression NEURO:No c/o weakness of the extremties, No facial droop, No speech abnormalities. VASCULAR: Peripheral nervous system within the normal limits no edema HEMATOLOGIC: No history of easy bleeding and bruising . No recent infections . RESPIRATORY: No cough, No SOB, No chest discomfort. IMMUNE: No infections INTEGUMENT: no rashes OPHTHALMOLOGIC: No blurry vision and no eye discharge : No dysuria or hematuria CARDIAC: As per HPI MUSCULOSKELETAL : No Aches or pains in the joints or muscles. GI: No abdominal pain, Nausea or vomiting. No constipation or diarrhea. All 13 review of systems are negative except for the ones mentioned above Past Medical History Past Medical History: Atrial Fibrillation, Cancer, Diabetes Mellitus, GERD/Reflux, Hyperlipidemia, Hypertension, Renal Disease, Thyroid Disorder Additional Past Medical History / Comment(s): artificial Left eye,hx bleeding from left eye globe, restless leg sydrome, COLON CANCER-no chemo or radiation, neuropathy, parkinsons, chronic back pain, History of Any Multi-Drug Resistant Organisms: None Reported Past Surgical History: Back Surgery, Bowel Resection, Heart Catheterization, Joint Replacement, Prostate Surgery Additional Past Surgical History / Comment(s): right knee replaced, back sx with titanium gavin Past Anesthesia/Blood Transfusion Reactions: Previous Problems w/ Anesthesia Additional Past Anesthesia/Blood Transfusion Reaction / Comment(s): "couldn't move left arm after knee or back surgery lasted approx 1 hour post op-re solved",no hx blood transfusion Past Psychological History: Anxiety, Depression Smoking Status: Former smoker Past Alcohol Use History: None Reported Additional Past Alcohol Use History / Comment(s): smoking: started 1961 stopped 1974 Past Drug Use History: None Reported - Past Family History Mother Family Medical History: Cancer, Hyperlipidemia, Hypertension Additional Family Medical History / Comment(s): ca: brain Father Family Medical History: Hyperlipidemia, Hypertension Medications and Allergies Home Medications Medication Instructions Recorded Confirmed Type Oxybutynin Chloride [Ditropan] 5 mg PO TID 01/28/14 06/22/19 History Sertraline [Zoloft] 100 mg PO BID 02/18/16 06/22/19 History QUEtiapine [SEROquel] 50 mg PO HS 08/09/16 06/22/19 History rOPINIRole HCL [Requip] 0.5 mg PO HS 08/20/16 06/22/19 History Primidone [Mysoline] 150 mg PO BID 10/27/17 06/22/19 History Albuterol Nebulized [Ventolin 2.5 mg INHALATION RT-TID 12/11/18 06/22/19 History Nebulized] Atenolol [Tenormin] 25 mg PO QAM 12/11/18 06/22/19 History Atorvastatin [Lipitor] 40 mg PO DAILY 12/11/18 06/22/19 History Calcitriol 0.25 mcg PO MOFR 12/11/18 06/22/19 History Calcium Acetate [PhosLo] 667 mg PO PC-SUPPER 12/11/18 06/22/19 History Levothyroxine Sodium [Synthroid] 50 mcg PO QAM 12/11/18 06/22/19 History oxyCODONE-APAP 5-325MG [Percocet 1 tab PO DAILY PRN 12/11/18 06/22/19 History 5-325 mg] Furosemide [Lasix] 40 mg PO DAILY 12/15/18 06/22/19 History Gabapentin 600 mg PO BID 12/15/18 06/22/19 History Omeprazole [PriLOSEC] 40 mg PO MARCOSBRKFST #14 capsule. 02/09/19 06/22/19 Rx Ergocalciferol [Vitamin D2] 50,000 unit PO WE 04/17/19 06/22/19 History Lisinopril [Zestril] 5 mg PO QAM 04/17/19 06/22/19 History Insulin NPH Hum/Reg Insulin Hm 20 unit SQ QAM 06/22/19 06/22/19 History [NovoLIN 70-30 100 UNIT/ML VIAL] Therabreath Dry Mouth 1 spray PO DAILY 06/22/19 06/22/19 History Allergies Allergy/AdvReac Type Severity Reaction Status Date / Time No Known Allergies Allergy Verified 06/22/19 17:07 Physical Exam Vitals: Vital Signs Temp Pulse Pulse Pulse Resp BP BP 06/23/19 12:00 98.3 F 64 18 166/75 06/23/19 08:00 98.0 F 67 18 150/74 06/23/19 07:12 60 16 06/23/19 07:03 56 L 16 06/23/19 04:00 98.0 F 55 L 15 132/63 06/22/19 22:10 63 06/22/19 21:58 97.5 F L 66 15 145/48 06/22/19 21:53 98 F 63 18 183/91 06/22/19 20:14 98.2 F 56 L 18 161/80 06/22/19 18:21 56 L 18 169/83 06/22/19 16:22 97.9 F 58 L 20 166/68 Pulse Ox 06/23/19 12:00 94 L 06/23/19 08:00 94 L 06/23/19 07:12 06/23/19 07:03 96 06/23/19 04:00 98 06/22/19 22:10 06/22/19 21:58 97 06/22/19 21:53 98 06/22/19 20:14 97 06/22/19 18:21 97 06/22/19 16:22 98 Intake and Output 06/22/19 06/23/19 06/23/19 22:59 06:59 14:59 Other: Voiding Method Toilet # Voids 1 1 Weight 77.564 kg GEN. APPEARANCE: alert, in no apparent distress HEAD EXAM: atraumatic, normocephalic, normal inspection EYE EXAM: No pallor. No icterus ENT EXAM: normal exam, mucous membranes moist NECK EXAM: No JVD. RESPIRATORY EXAM: Bilateral breath sounds are positive. No wheeze or crackles. CARDIOVASCULAR EXAM: S1-S2 heard. GI/ABDOMINAL EXAM: Abdomen is soft nontender. Normal bowel sounds. EXTREMITIES EXAM: No edema. NEUROLOGICAL EXAM: alert, oriented X3, no focal neurological deficits. PSYCHIATRIC EXAM: normal affect, normal mood SKIN EXAM: warm, dry, intact, normal color. Absent: rash Results CBC & Chem 7: 06/22/19 17:14 06/22/19 17:14 Labs: Abnormal Lab Results - Last 24 Hours (Table) 06/22/19 06/22/19 06/22/19 Range/Units 17:14 17:14 17:14 RBC 3.62 L (4.30-5.90) m/uL Hgb 12.5 L (13.0-17.5) gm/dL Hct 36.5 L (39.0-53.0) % MCV 100.8 H (80.0-100.0) fL APTT 40.1 H (22.0-30.0) sec Chloride 108 H (98-107) mmol/L Carbon Dioxide 20 L (22-30) mmol/L BUN 25 H (9-20) mg/dL Creatinine 1.89 H (0.66-1.25) mg/dL Glucose 156 H (74-99) mg/dL POC Glucose (mg/dL) (75-99) mg/dL Magnesium 2.6 H (1.6-2.3) mg/dL Alkaline Phosphatase 196 H (38-126) U/L Triglycerides (<150) mg/dL HDL Cholesterol (40-60) mg/dL 06/23/19 06/23/19 06/23/19 Range/Units 05:33 06:33 11:27 RBC (4.30-5.90) m/uL Hgb (13.0-17.5) gm/dL Hct (39.0-53.0) % MCV (80.0-100.0) fL APTT (22.0-30.0) sec Chloride (98-107) mmol/L Carbon Dioxide (22-30) mmol/L BUN (9-20) mg/dL Creatinine (0.66-1.25) mg/dL Glucose (74-99) mg/dL POC Glucose (mg/dL) 148 H 224 H (75-99) mg/dL Magnesium (1.6-2.3) mg/dL Alkaline Phosphatase (38-126) U/L Triglycerides 432 H (<150) mg/dL HDL Cholesterol 22 L (40-60) mg/dL Thrombosis Risk Factor Assmnt - Choose All That Apply Any of the Below Risk Factors Present?: No Other Risk Factors: (decreased mobility) Other congenital or acquired thrombophilia - If yes, enter type in comment: No Assessment and Plan Assessment: ASSESSMENT Atypical chest pain Paroxysmal atrial fibrillation Hypertension Hyperlipidemia Type 2 diabetes mellitus Thyroid disorder History of colon cancer Restless leg syndrome Chronic low back pain GERD PLAN: Patient had serial EKGs and troponins that were within normal limits he was cleared by cardiology to be discharged home. Patient is chest pain-free. Patient had a stress test done in January 2019 that was unremarkable. He is advised of follow-up with his senior reliability engineer Dr. Green in 2-3 days. No changes in his medications made. Patient is being discharged home in a stable condition.
--- NOTE | 2019-06-23 13:05 | P.DS ---
Providers Date of admission: 06/22/19 20:45 Expected date of discharge: 06/23/19 Attending physician: Parth Colon Consults: 06/22/19 20:45 Consult Physician Urgent Consulting Provider: Vicky Chow Consult Reason/Comments: Cardiology evaluation and treatment Do you want consulting provider notified?: Yes Primary care physician: Reilly Higginbotham [facility] Course: Mr. Duncan is an 79-year-old male with a past medical history of atrial fibrillation, diabetes mellitus, hypertension, hyperlipidemia, thyroid disorder, restless leg, colon cancer history, chronic low back pain coming into the hospital with a chief complaint of chest discomfort. Patient stated that he was having chest Discomfort all through the day substernal that was throbbing in nature and it was radiating to his upper chest. Patient denied having any associated dizziness or difficulty in breathing. No nausea vomiting. Patient does not have any history of coronary artery disease. Patient had a stress test done in January 2019 that was unremarkable. And during this admission patient had an EKG that was within normal limits and 3 sets of cardiac enzymes that are within normal limits. Currently the patient is sitting in the bed and states that his chest pain free and wants to go home. Patient's labs were reviewed and within normal limits. Patient denied having any fevers chills or rigors. No cough or difficulty in breathing. No abdominal pain nausea vomiting or diarrhea. No dysuria or hematuria. Patient denies having any headaches blurring of vision or weakness of his extremities. Patient was evaluated by cardiology Dr. Flood and was stable for discharge. He is advised to follow-up with his food service steward Dr. Green. DISCHARGE DIAGNOSIS Atypical chest pain Paroxysmal atrial fibrillation Hypertension Hyperlipidemia Type 2 diabetes mellitus Thyroid disorder History of colon cancer Restless leg syndrome Chronic low back pain GERD PLAN: Patient had serial EKGs and troponins that were within normal limits he was cleared by cardiology to be discharged home. Patient is chest pain-free. Patient had a stress test done in January 2019 that was unremarkable. He is advised of follow-up with his food service steward Dr. Green in 2-3 days. No changes in his medications made. Patient is being discharged home in a stable condition. Plan - Discharge Summary Discharge Rx Participant: No New Discharge Prescriptions: No Action Oxybutynin Chloride [Ditropan] 5 mg PO TID Sertraline [Zoloft] 100 mg PO BID QUEtiapine [SEROquel] 50 mg PO HS rOPINIRole HCL [Requip] 0.5 mg PO HS Primidone [Mysoline] 150 mg PO BID Albuterol Nebulized [Ventolin Nebulized] 2.5 mg INHALATION RT-TID oxyCODONE-APAP 5-325MG [Percocet 5-325 mg] 1 tab PO DAILY PRN PRN Reason: Pain Levothyroxine Sodium [Synthroid] 50 mcg PO QAM Calcium Acetate [PhosLo] 667 mg PO PC-SUPPER Calcitriol 0.25 mcg PO MOFR Atorvastatin [Lipitor] 40 mg PO DAILY Atenolol [Tenormin] 25 mg PO QAM Gabapentin 600 mg PO BID Furosemide [Lasix] 40 mg PO DAILY Omeprazole [PriLOSEC] 40 mg PO AC-BRKFST #14 capsule. Ergocalciferol [Vitamin D2] 50,000 unit PO WE Lisinopril [Zestril] 5 mg PO QAM Therabreath Dry Mouth 1 spray PO DAILY Insulin NPH Hum/Reg Insulin Hm [NovoLIN 70-30 100 UNIT/ML VIAL] 20 unit SQ QAM Discharge Medication List Oxybutynin Chloride [Ditropan] 5 mg PO TID 01/28/14 [History] Sertraline [Zoloft] 100 mg PO BID 02/18/16 [History] QUEtiapine [SEROquel] 50 mg PO HS 08/09/16 [History] rOPINIRole HCL [Requip] 0.5 mg PO HS 08/20/16 [History] Primidone [Mysoline] 150 mg PO BID 10/27/17 [History] Albuterol Nebulized [Ventolin Nebulized] 2.5 mg INHALATION RT-TID 12/11/18 [History] Atenolol [Tenormin] 25 mg PO QAM 12/11/18 [History] Atorvastatin [Lipitor] 40 mg PO DAILY 12/11/18 [History] Calcitriol 0.25 mcg PO MOFR 12/11/18 [History] Calcium Acetate [PhosLo] 667 mg PO PC-SUPPER 12/11/18 [History] Levothyroxine Sodium [Synthroid] 50 mcg PO QAM 12/11/18 [History] oxyCODONE-APAP 5-325MG [Percocet 5-325 mg] 1 tab PO DAILY PRN 12/11/18 [History] Furosemide [Lasix] 40 mg PO DAILY 12/15/18 [History] Gabapentin 600 mg PO BID 12/15/18 [History] Omeprazole [PriLOSEC] 40 mg PO AC-BRKFST #14 capsule. 02/09/19 [Rx] Ergocalciferol [Vitamin D2] 50,000 unit PO WE 04/17/19 [History] Lisinopril [Zestril] 5 mg PO QAM 04/17/19 [History] Insulin NPH Hum/Reg Insulin Hm [NovoLIN 70-30 100 UNIT/ML VIAL] 20 unit SQ QAM 06/22/19 [History] Therabreath Dry Mouth 1 spray PO DAILY 06/22/19 [History] Follow up Appointment(s)/Referral(s): Reilly Higginbotham MD [Primary Care Provider] - 1-2 days Feliciano Green MD [STAFF PHYSICIAN] - 1 Week
[2019-06-25] MEDS ORDERED: CALCITRIOL 0.25 MCG CAP PO SCH (09:00)
[2019-06-27] MEDS ORDERED: ERGOCALCIFEROL 50,000 UNIT CAP PO SCH (09:00)
== END 2019-06-23 13:18 | disposition home or self-care (01) ==
LOC: EC 16:19 → 1SOBS 20:45
PROVIDERS: ADMIT Internal Medicine; ATTEND Internal Medicine
DX: R07.89 Other chest pain (principal); I48.0 Paroxysmal atrial fibrillation; I10 Essential (primary) hypertension; E78.5 Hyperlipidemia, unspecified; E11.42 Type 2 diabetes mellitus with diabetic polyneuropathy; G25.81 Restless legs syndrome; K21.9 Gastro-esophageal reflux disease without esophagitis; G89.29 Other chronic pain; M54.5 Low back pain; E07.9 Disorder of thyroid, unspecified; G20 Parkinson's disease; F41.9 Anxiety disorder, unspecified; F32.9 Major depressive disorder, single episode, unspecified; Z79.890 Hormone replacement therapy; Z79.4 Long term (current) use of insulin; Z79.899 Other long term (current) drug therapy; Z79.891 Long term (current) use of opiate analgesic; Z85.038 Personal history of other malignant neoplasm of large intestine; Z87.448 Personal history of other diseases of urinary system; Z97.0 Presence of artificial eye; Z96.651 Presence of right artificial knee joint; Z87.891 Personal history of nicotine dependence; Z83.49 Family history of other endocrine, nutritional and metabolic diseases; Z80.8 Family history of malignant neoplasm of other organs or systems; Z82.49 Family history of ischemic heart disease and other diseases of the circulatory system
CPT/HCPCS: 93005 ×2; 99285; 36415; 94640; 94760; 80061; 80053; 83735; 84484 ×2; 85025; 85610; 85730; 87502; 71046; G0378 ×2

== ENCOUNTER 2019-06-25 19:28 | Emergency (ER) | payer MEDICARE ==
[2019-06-25 19:32] VITALS: TEMP 98.2
[2019-06-25] MEDS ORDERED: ONDANSETRON 4 MG/2 ML VIAL IVP STA (19:51)
[2019-06-25] MEDS ORDERED: SODIUM CHLORIDE 0.9% 1,000 ML IV STA (19:51)
--- NOTE | 2019-06-25 20:05 | ED ---
Weakness HPI - General Chief complaint: Nausea/Vomiting/Diarrhea Stated complaint: Diarrhea, not feeling good Time Seen by Provider: 06/25/19 19:35 Source: patient, RN notes reviewed, old records reviewed Mode of arrival: ambulatory Limitations: no limitations - History of Present Illness Initial comments: This is an 79-year-old male the ER for evaluation as patient resents today for evaluation regards to weakness not feeling well. Patient is calm. Medical history recently discharged from hospital on Tuesday. Not feeling well today with nausea vomiting and diarrhea weakness numbness tingling. No other recent change in medications no fevers no complaints of chest pain or shortness of breath or abdominal pain. MD Complaint: generalized weakness -: minutes(s) Location: generalized Severity: moderate Severity scale (1-10): 4 Consistency: constant Improves with: none Worsens with: none Context: new medication, recent illness Associated Symptoms: denies other symptoms - Related Data Home Medications Medication Instructions Recorded Confirmed Oxybutynin Chloride [Ditropan] 5 mg PO TID 01/28/14 06/25/19 Sertraline [Zoloft] 100 mg PO BID 02/18/16 06/25/19 QUEtiapine [SEROquel] 50 mg PO HS 08/09/16 06/25/19 rOPINIRole HCL [Requip] 0.5 mg PO HS 08/20/16 06/25/19 Primidone [Mysoline] 150 mg PO BID 10/27/17 06/25/19 Albuterol Nebulized [Ventolin 2.5 mg INHALATION RT-TID 12/11/18 06/25/19 Nebulized] Atenolol [Tenormin] 25 mg PO QAM 12/11/18 06/25/19 Atorvastatin [Lipitor] 40 mg PO DAILY 12/11/18 06/25/19 Calcitriol 0.25 mcg PO MOFR 12/11/18 06/25/19 Calcium Acetate [PhosLo] 667 mg PO PC-SUPPER 12/11/18 06/25/19 Levothyroxine Sodium [Synthroid] 50 mcg PO QAM 12/11/18 06/25/19 oxyCODONE-APAP 5-325MG [Percocet 1 tab PO DAILY PRN 12/11/18 06/25/19 5-325 mg] Furosemide [Lasix] 40 mg PO DAILY 12/15/18 06/25/19 Gabapentin 600 mg PO BID 12/15/18 06/25/19 Ergocalciferol [Vitamin D2 50,000 unit PO WE 04/17/19 06/25/19 (DRISDOL)] Lisinopril [Zestril] 5 mg PO QAM 04/17/19 06/25/19 Insulin NPH Hum/Reg Insulin Hm 20 unit SQ QAM 06/22/19 06/25/19 [NovoLIN 70-30 100 UNIT/ML VIAL] Therabreath Dry Mouth 1 spray PO DAILY 06/22/19 06/25/19 Previous Rx's Medication Instructions Recorded Omeprazole [PriLOSEC] 40 mg PO AC-BRKFST #14 capsule. 02/09/19 Allergies Allergy/AdvReac Type Severity Reaction Status Date / Time No Known Allergies Allergy Verified 06/25/19 19:40 Review of Systems ROS Statement: Those systems with pertinent positive or pertinent negative responses have been documented in the HPI. ROS Other: All systems not noted in ROS Statement are negative. Past Medical History Past Medical History: Atrial Fibrillation, Cancer, Diabetes Mellitus, GERD/Reflux, Hyperlipidemia, Hypertension, Renal Disease, Thyroid Disorder Additional Past Medical History / Comment(s): artificial Left eye,hx bleeding from left eye globe, restless leg sydrome, COLON CANCER-no chemo or radiation, neuropathy, parkinsons, chronic back pain, History of Any Multi-Drug Resistant Organisms: None Reported Past Surgical History: Back Surgery, Bowel Resection, Heart Catheterization, Joint Replacement, Prostate Surgery Additional Past Surgical History / Comment(s): right knee replaced, back sx with titanium gavin Past Anesthesia/Blood Transfusion Reactions: Previous Problems w/ Anesthesia Additional Past Anesthesia/Blood Transfusion Reaction / Comment(s): "couldn't move left arm after knee or back surgery lasted approx 1 hour post op- resolved",no hx blood transfusion Past Psychological History: Anxiety, Depression Smoking Status: Former smoker Past Alcohol Use History: None Reported Past Drug Use History: None Reported - Past Family History Mother Family Medical History: Cancer, Hyperlipidemia, Hypertension Additional Family Medical History / Comment(s): ca: brain Father Family Medical History: Hyperlipidemia, Hypertension General Exam Limitations: no limitations General appearance: alert, in no apparent distress Head exam: Present: atraumatic, normocephalic, normal inspection Eye exam: Present: normal appearance, PERRL, EOMI. Absent: scleral icterus, conjunctival injection, periorbital swelling ENT exam: Present: normal exam, mucous membranes moist Neck exam: Present: normal inspection. Absent: tenderness, meningismus, lymphadenopathy Respiratory exam: Present: normal lung sounds bilaterally. Absent: respiratory distress, wheezes, rales, rhonchi, stridor Cardiovascular Exam: Present: normal rhythm, bradycardia, normal heart sounds. Absent: systolic murmur, diastolic murmur, rubs, gallop, clicks GI/Abdominal exam: Present: soft, normal bowel sounds. Absent: distended, tenderness, guarding, rebound, rigid Extremities exam: Present: normal inspection, full ROM, normal capillary refill. Absent: tenderness, pedal edema, joint swelling, calf tenderness Back exam: Present: normal inspection Neurological exam: Present: alert, oriented X3, CN II-XII intact Psychiatric exam: Present: normal affect, normal mood Skin exam: Present: warm, dry, intact, normal color. Absent: rash Course Vital Signs 06/25/19 19:30 Temperature 98.2 F Pulse Rate 56 L Respiratory 16 Rate Blood Pressure 148/73 O2 Sat by Pulse 97 Oximetry - Reevaluation(s) Reevaluation #1: 06/25/19 21:57 Medical records reviewed including recent hospital admission Reevaluation #2: 06/25/19 21:57 Spoke with patient, feeling improved, okay for discharge EKG Findings - EKG Comments: EKG Findings:: EKG shows sinus bradycardia rate of 55, AK 200, QRS 100, QTC 413 Medical Decision Making - Medical Decision Making 79 male to the ED for evaluation of nausea vomiting and diarrhea. Patient this time states his symptoms are improved is eating here in the ER labwork is normal. Patient can be discharged home - Lab Data Result diagrams: 06/25/19 19:57 06/25/19 19:57 Lab Results 06/25/19 06/25/19 06/25/19 Range/Units 19:57 19:57 19:57 WBC 9.7 (3.8-10.6) k/uL RBC 3.68 L (4.30-5.90) m/uL Hgb 12.2 L (13.0-17.5) gm/dL Hct 37.4 L (39.0-53.0) % MCV 101.4 H (80.0-100.0) fL MCH 33.2 (25.0-35.0) pg MCHC 32.8 (31.0-37.0) g/dL RDW 13.6 (11.5-15.5) % Plt Count 208 (150-450) k/uL Neutrophils % 63 % Lymphocytes % 25 % Monocytes % 5 % Eosinophils % 4 % Basophils % 1 % Neutrophils # 6.1 (1.3-7.7) k/uL Lymphocytes # 2.4 (1.0-4.8) k/uL Monocytes # 0.5 (0-1.0) k/uL Eosinophils # 0.4 (0-0.7) k/uL Basophils # 0.1 (0-0.2) k/uL Macrocytosis Slight PT 10.6 (9.0-12.0) sec INR 1.0 (<1.2) APTT 40.8 H (22.0-30.0) sec Sodium 138 (137-145) mmol/L Potassium 4.2 (3.5-5.1) mmol/L Chloride 105 (98-107) mmol/L Carbon Dioxide 23 (22-30) mmol/L Anion Gap 10 mmol/L BUN 25 H (9-20) mg/dL Creatinine 1.93 H (0.66-1.25) mg/dL Est GFR (CKD-EPI)AfAm 37 (>60 ml/min/1.73 sqM) Est GFR (CKD-EPI)NonAf 32 (>60 ml/min/1.73 sqM) Glucose 102 H (74-99) mg/dL Calcium 8.9 (8.4-10.2) mg/dL Phosphorus 3.6 (2.5-4.5) mg/dL Magnesium 2.3 (1.6-2.3) mg/dL Total Bilirubin 0.2 (0.2-1.3) mg/dL AST 19 (17-59) U/L ALT 21 (21-72) U/L Alkaline Phosphatase 180 H (38-126) U/L Creatine Kinase 57 (55-170) U/L Troponin I (0.000-0.034) ng/mL Total Protein 7.1 (6.3-8.2) g/dL Albumin 4.3 (3.5-5.0) g/dL TSH 5.920 H (0.465-4.680) mIU/L Urine Color Urine Appearance (Clear) Urine pH (5.0-8.0) Ur Specific Julian (1.001-1.035) Urine Protein (Negative) Urine Glucose (UA) (Negative) Urine Ketones (Negative) Urine Blood (Negative) Urine Nitrite (Negative) Urine Bilirubin (Negative) Urine Urobilinogen (<2.0) mg/dL Ur Leukocyte Esterase (Negative) 06/25/19 06/25/19 Range/Units 19:57 20:33 WBC (3.8-10.6) k/uL RBC (4.30-5.90) m/uL Hgb (13.0-17.5) gm/dL Hct (39.0-53.0) % MCV (80.0-100.0) fL MCH (25.0-35.0) pg MCHC (31.0-37.0) g/dL RDW (11.5-15.5) % Plt Count (150-450) k/uL Neutrophils % % Lymphocytes % % Monocytes % % Eosinophils % % Basophils % % Neutrophils # (1.3-7.7) k/uL Lymphocytes # (1.0-4.8) k/uL Monocytes # (0-1.0) k/uL Eosinophils # (0-0.7) k/uL Basophils # (0-0.2) k/uL Macrocytosis PT (9.0-12.0) sec INR (<1.2) APTT (22.0-30.0) sec Sodium (137-145) mmol/L Potassium (3.5-5.1) mmol/L Chloride (98-107) mmol/L Carbon Dioxide (22-30) mmol/L Anion Gap mmol/L BUN (9-20) mg/dL Creatinine (0.66-1.25) mg/dL Est GFR (CKD-EPI)AfAm (>60 ml/min/1.73 sqM) Est GFR (CKD-EPI)NonAf (>60 ml/min/1.73 sqM) Glucose (74-99) mg/dL Calcium (8.4-10.2) mg/dL Phosphorus (2.5-4.5) mg/dL Magnesium (1.6-2.3) mg/dL Total Bilirubin (0.2-1.3) mg/dL AST (17-59) U/L ALT (21-72) U/L Alkaline Phosphatase (38-126) U/L Creatine Kinase (55-170) U/L Troponin I <0.012 (0.000-0.034) ng/mL Total Protein (6.3-8.2) g/dL Albumin (3.5-5.0) g/dL TSH (0.465-4.680) mIU/L Urine Color Light Yellow Urine Appearance Clear (Clear) Urine pH 5.5 (5.0-8.0) Ur Specific Julian 1.005 (1.001-1.035) Urine Protein Negative (Negative) Urine Glucose (UA) Negative (Negative) Urine Ketones Negative (Negative) Urine Blood Negative (Negative) Urine Nitrite Negative (Negative) Urine Bilirubin Negative (Negative) Urine Urobilinogen <2.0 (<2.0) mg/dL Ur Leukocyte Esterase Negative (Negative) Disposition Clinical Impression: Dehydration, Gastroenteritis Disposition: HOME SELF-CARE Condition: Good Instructions (If sedation given, give patient instructions): Acute Nausea and Vomiting (ED), Acute Diarrhea (ED) Is patient prescribed a controlled substance at d/c from ED?: No Referrals: Reilly Higginbotham MD [Primary Care Provider] - 1-2 days
[2019-06-25 20:07] LABS: Basophils # (A) 0.1 k/uL (0-0.2); Basophils % (A) 1 %; Eosinophils # (A) 0.4 k/uL (0-0.7); Eosinophils % (A) 4 %; HCT 37.4 % (39.0-53.0); HGB 12.2 gm/dL (13.0-17.5); Lymphocytes # (A) 2.4 k/uL (1.0-4.8); Lymphocytes % (A) 25 %; MCH 33.2 pg (25.0-35.0); MCHC 32.8 g/dL (31.0-37.0); MCV 101.4 fL (80.0-100.0); Macrocytosis Slight; Mean Platelet Volume 8.5; Monocytes # (A) 0.5 k/uL (0-1.0); Monocytes % (A) 5 %; Neutrophils # (A) 6.1 k/uL (1.3-7.7); Neutrophils % (A) 63 %; Platelet Count 208 k/uL (150-450); RBC 3.68 m/uL (4.30-5.90); RDW 13.6 % (11.5-15.5); WBC 9.7 k/uL (3.8-10.6)
[2019-06-25 20:17] LABS: Albumin 4.3 g/dL (3.5-5.0); Calcium 8.9 mg/dL (8.4-10.2); Magnesium 2.3 mg/dL (1.6-2.3); Partial Thromboplastin Time 40.8 sec (22.0-30.0); Phosphorus 3.6 mg/dL (2.5-4.5); Potassium 4.2 mmol/L (3.5-5.1); Prothrombin Time 10.6 sec (9.0-12.0); Total Bilirubin 0.2 mg/dL (0.2-1.3); Total Protein 7.1 g/dL (6.3-8.2)
[2019-06-25 20:43] LABS: Appearance,Urine Clear (Clear); Bilirubin,Urine Negative (Negative); Blood,Urine Negative (Negative); Color,Urine Light Yellow; Glucose,Urine (UA) Negative (Negative); Ketones,Urine Negative (Negative); Leukocyte Esterase,Urine Negative (Negative); Nitrite,Urine Negative (Negative); PH, Urine 5.5 (5.0-8.0); Protein,Urine Negative (Negative); Specific Gravity,Urine 1.005 (1.001-1.035); Urobilinogen,Urine <2.0 mg/dL (<2.0)
[2019-06-25] MEDS ORDERED: ONDANSETRON 4 MG ODT STARTER PACK 2 TAB BTL PO STA (21:58)
[2019-06-25] MEDS ORDERED: ONDANSETRON ODT 4 MG TAB PO STA (21:58)
[2019-06-25 22:16] VITALS: BP 161/78; PULSE 58; RESP 18
== END 2019-06-25 22:16 | disposition home or self-care (01) ==
LOC: EC 19:28
DX: K52.9 Noninfective gastroenteritis and colitis, unspecified (principal); E86.0 Dehydration; I48.91 Unspecified atrial fibrillation; I10 Essential (primary) hypertension; E78.5 Hyperlipidemia, unspecified; K21.9 Gastro-esophageal reflux disease without esophagitis; F41.9 Anxiety disorder, unspecified; F32.9 Major depressive disorder, single episode, unspecified; E07.9 Disorder of thyroid, unspecified; E11.40 Type 2 diabetes mellitus with diabetic neuropathy, unspecified; Z79.4 Long term (current) use of insulin; Z79.899 Other long term (current) drug therapy; Z79.890 Hormone replacement therapy; Z87.891 Personal history of nicotine dependence; Z85.038 Personal history of other malignant neoplasm of large intestine; Z96.651 Presence of right artificial knee joint
CPT/HCPCS: 36415; 93005; 80053; 82550; 83735; 84100; 84443; 84484; 85025; 85610; 85730; 81003; 99284; 96374; 96361 ×2; J2405; S0119

== ENCOUNTER → 2019-10-13 | Outpatient (CLI) | payer MEDICARE ==
[2019-10-13 12:17] LABS: HCT 36.9 % (39.0-53.0); MCH 33.6 pg (25.0-35.0); MCHC 32.5 g/dL (31.0-37.0); MCV 103.4 fL (80.0-100.0); Macrocytosis Slight; Mean Platelet Volume 9.9; Platelet Count 155 k/uL (150-450); RBC 3.57 m/uL (4.30-5.90); RDW 12.7 % (11.5-15.5); WBC 5.8 k/uL (3.8-10.6)
[2019-10-13 14:43] LABS: Appearance,Urine Clear (Clear); Bilirubin,Urine Negative (Negative); Blood,Urine Negative (Negative); Color,Urine Light Yellow; Glucose,Urine (UA) Negative (Negative); Ketones,Urine Negative (Negative); Leukocyte Esterase,Urine Negative (Negative); Nitrite,Urine Negative (Negative); PH, Urine 5.5 (5.0-8.0); Protein,Urine Negative (Negative); Urobilinogen,Urine <2.0 mg/dL (<2.0)
[2019-10-13 23:22] LABS: % Iron Saturation 52.19 (15.00-50.00); African American GFR (CKD) 42.9 (60.0-200.0); Albumin 4.5 g/dL (3.80-4.90); Albumin/Globulin Ratio 2.5 (1.60-3.17); Anion Gap 6.4 mmol/L (4.00-12.00); BUN/Creat Ratio 17.06 Ratio (12.00-20.00); Calcium 8.5 mg/dL (8.7-10.3); Carbon Dioxide 24.6 mmol/L (21.6-31.8); Globulin 1.8 g/dL (1.6-3.3); Magnesium 2.4 mg/dL (1.5-2.4); Phosphorus 3.5 mg/dL (2.4-5.1); Potassium 4.5 mmol/L (3.5-5.5); Total Bilirubin 0.2 mg/dL (0.2-1.2); Total Protein 6.3 g/dL (6.2-8.2); Uric Acid 5.9 mg/dL (3.7-8.7)
[2019-10-13 23:23] LABS: Ferritin 199.8 ng/mL (22.0-322.0)
[2019-10-13 23:39] LABS: Urine Creatinine 35.8 mg/dL
== END | disposition home or self-care (01) ==
LOC: LABWHC1 11:32
PROVIDERS: ATTEND Nurse Practitioner Family
DX: N18.3 Chronic kidney disease, stage 3 (moderate) (principal); D63.1 Anemia in chronic kidney disease; N39.0 Urinary tract infection, site not specified; R80.9 Proteinuria, unspecified; N25.81 Secondary hyperparathyroidism of renal origin; M10.9 Gout, unspecified
CPT/HCPCS: 36415; 80053; 81003; 82043; 82570; 82728; 83540; 83550; 83735; 83970; 84100; 84550; 85027

== ENCOUNTER → 2019-12-14 | Outpatient (CLI) | payer MEDICARE ==
[2019-12-14 10:02] LABS: HCT 39.5 % (39.0-53.0); MCH 33.8 pg (25.0-35.0); MCV 102.5 fL (80.0-100.0); Macrocytosis Slight; Mean Platelet Volume 9.2; Platelet Count 198 k/uL (150-450); RBC 3.85 m/uL (4.30-5.90); RDW 13.2 % (11.5-15.5); WBC 8.7 k/uL (3.8-10.6)
[2019-12-14 16:09] LABS: African American GFR (CKD) 37.5 (60.0-200.0); Albumin 4.6 g/dL (3.80-4.90); Albumin/Globulin Ratio 2.09 (1.60-3.17); Anion Gap 9.9 mmol/L (4.00-12.00); BUN/Creat Ratio 17.37 Ratio (12.00-20.00); Calcium 8.5 mg/dL (8.7-10.3); Carbon Dioxide 22.1 mmol/L (21.6-31.8); Globulin 2.2 g/dL (1.6-3.3); Non-African American GFR(CKD) 32.3 (60.0-200.0); Potassium 4.4 mmol/L (3.5-5.5); Total Bilirubin 0.2 mg/dL (0.3-1.2); Total Protein 6.8 g/dL (6.2-8.2)
== END | disposition home or self-care (01) ==
LOC: LABWHC1 09:41
PROVIDERS: ATTEND Nurse Practitioner Family
DX: N18.3 Chronic kidney disease, stage 3 (moderate) (principal); D64.9 Anemia, unspecified
CPT/HCPCS: 36415; 80053; 85027

== ENCOUNTER → 2020-03-21 | Outpatient (CLI) | payer MEDICARE ==
[2020-03-21 14:31] LABS: HCT 38.8 % (39.0-53.0); HGB 12.8 gm/dL (13.0-17.5); MCH 34.2 pg (25.0-35.0); MCHC 32.9 g/dL (31.0-37.0); MCV 104.1 fL (80.0-100.0); Macrocytosis Slight; Mean Platelet Volume 9.4; Platelet Count 160 k/uL (150-450); RBC 3.73 m/uL (4.30-5.90); WBC 8.3 k/uL (3.8-10.6)
[2020-03-21 14:34] LABS: Appearance,Urine Clear (Clear); Bilirubin,Urine Negative (Negative); Blood,Urine Negative (Negative); Color,Urine Colorless; Glucose,Urine (UA) Negative (Negative); Ketones,Urine Negative (Negative); Leukocyte Esterase,Urine Negative (Negative); Nitrite,Urine Negative (Negative); Protein,Urine Negative (Negative); Specific Gravity,Urine 1.005 (1.001-1.035); Urobilinogen,Urine <2.0 mg/dL (<2.0)
[2020-03-21 19:44] LABS: Ferritin 144.2 ng/mL (22.0-322.0)
[2020-03-21 19:46] LABS: % Iron Saturation 39.13 (15.00-50.00); Albumin 4.6 g/dL (3.80-4.90); Albumin/Globulin Ratio 2.09 (1.60-3.17); BUN/Creat Ratio 16.5 Ratio (12.00-20.00); Calcium 8.7 mg/dL (8.7-10.3); Globulin 2.2 g/dL (1.6-3.3); Magnesium 2.4 mg/dL (1.5-2.4); Non-African American GFR(CKD) 30.2 (60.0-200.0); Phosphorus 4.7 mg/dL (2.4-5.1); Potassium 5.1 mmol/L (3.5-5.5); Total Bilirubin 0.2 mg/dL (0.3-1.2); Total Protein 6.8 g/dL (6.2-8.2); Uric Acid 6.3 mg/dL (3.7-8.7)
[2020-03-22 00:14] LABS: Urine Creatinine 20.2 mg/dL
== END | disposition home or self-care (01) ==
LOC: LABWHC1 12:32
PROVIDERS: ATTEND Internal Medicine
DX: N18.3 Chronic kidney disease, stage 3 (moderate) (principal); D63.1 Anemia in chronic kidney disease; N39.0 Urinary tract infection, site not specified; R80.9 Proteinuria, unspecified; N25.81 Secondary hyperparathyroidism of renal origin; E55.9 Vitamin D deficiency, unspecified; M10.9 Gout, unspecified
CPT/HCPCS: 36415; 80053; 81003; 82043; 82306; 82570; 82728; 83540; 83550; 83735; 83970; 84100; 84550; 85027

== ENCOUNTER 2020-04-14 17:51 | Emergency (ER) | payer MEDICARE ==
[2020-04-14] MEDS ORDERED: ACETAMINOPHEN TAB 500 MG TAB PO STA (18:51)
--- NOTE | 2020-04-14 19:12 | ED ---
Upper Extremity HPI - General Chief Complaint: Extremity Injury, Upper Stated Complaint: Right hand injury Time Seen by Provider: 04/14/20 18:22 Source: patient Mode of arrival: ambulatory Limitations: no limitations - History of Present Illness Initial Comments: 80-year-old female patient presents to the emergency department today for evaluation of injury to the right pinky finger. Patient states that he was coming down the stairs when he missed the last step and fell forward hitting his hand on the wall. Patient states he is having pain at the base of the finger. Denies taking anything for pain. Denies any other injuries with this. Patient denies any headache, neck pain, back pain, chest pain, shortness of breath, dizziness, weakness, abdominal pain, nausea, vomiting, or difficulties with bowel movements or urination. - Related Data Home Medications Medication Instructions Recorded Confirmed Oxybutynin Chloride [Ditropan] 5 mg PO TID 01/28/14 06/25/19 Sertraline [Zoloft] 100 mg PO BID 02/18/16 06/25/19 QUEtiapine [SEROquel] 50 mg PO HS 08/09/16 06/25/19 rOPINIRole HCL [Requip] 0.5 mg PO HS 08/20/16 06/25/19 Primidone [Mysoline] 150 mg PO BID 10/27/17 06/25/19 Albuterol Nebulized [Ventolin 2.5 mg INHALATION RT-TID 12/11/18 06/25/19 Nebulized] Atorvastatin [Lipitor] 40 mg PO DAILY 12/11/18 06/25/19 Calcium Acetate [PhosLo] 667 mg PO PC-SUPPER 12/11/18 06/25/19 Levothyroxine Sodium [Synthroid] 50 mcg PO QAM 12/11/18 06/25/19 atenoloL [Tenormin] 25 mg PO QAM 12/11/18 06/25/19 calcitrioL [Calcitriol] 0.25 mcg PO MOFR 12/11/18 06/25/19 oxyCODONE-APAP 5-325MG [Percocet 1 tab PO DAILY PRN 12/11/18 06/25/19 5-325 mg] Furosemide [Lasix] 40 mg PO DAILY 12/15/18 06/25/19 Gabapentin 600 mg PO BID 12/15/18 06/25/19 Ergocalciferol [Vitamin D2 50,000 unit PO WE 04/17/19 06/25/19 (DRISDOL)] lisinopriL [Zestril] 5 mg PO QAM 04/17/19 06/25/19 Insulin NPH Hum/Reg Insulin Hm 20 unit SQ QAM 06/22/19 06/25/19 [NovoLIN 70-30 100 UNIT/ML VIAL] Therabreath Dry Mouth 1 spray PO DAILY 06/22/19 06/25/19 Previous Rx's Medication Instructions Recorded Omeprazole [PriLOSEC] 40 mg PO AC-BRKFST #14 capsule. 02/09/19 Allergies Allergy/AdvReac Type Severity Reaction Status Date / Time No Known Allergies Allergy Verified 04/14/20 18:07 Review of Systems ROS Statement: Those systems with pertinent positive or pertinent negative responses have been documented in the HPI. ROS Other: All systems not noted in ROS Statement are negative. Past Medical History Past Medical History: Atrial Fibrillation, Cancer, Diabetes Mellitus, GERD/Reflux, Hyperlipidemia, Hypertension, Renal Disease, Thyroid Disorder Additional Past Medical History / Comment(s): artificial Left eye,hx bleeding from left eye globe, restless leg sydrome, COLON CANCER-no chemo or radiation, neuropathy, parkinsons, chronic back pain, History of Any Multi-Drug Resistant Organisms: None Reported Past Surgical History: Back Surgery, Bowel Resection, Heart Catheterization, Joint Replacement, Prostate Surgery Additional Past Surgical History / Comment(s): right knee replaced, back sx with titanium gavin Past Anesthesia/Blood Transfusion Reactions: Previous Problems w/ Anesthesia Additional Past Anesthesia/Blood Transfusion Reaction / Comment(s): "couldn't move left arm after knee or back surgery lasted approx 1 hour post op- resolved",no hx blood transfusion Past Psychological History: Anxiety, Depression Past Alcohol Use History: None Reported Past Drug Use History: None Reported - Past Family History Mother Family Medical History: Cancer, Hyperlipidemia, Hypertension Additional Family Medical History / Comment(s): ca: brain Father Family Medical History: Hyperlipidemia, Hypertension General Exam Limitations: no limitations General appearance: alert, in no apparent distress, other (This is a well- developed, well-nourished elderly male patient in no acute distress. Vital signs upon presentation are temperature 98.7F, pulse 57, respirations 20, blood pressure 155/71, pulse ox 97% on room air.) Respiratory exam: Present: normal lung sounds bilaterally. Absent: respiratory distress, wheezes, rales, rhonchi, stridor Cardiovascular Exam: Present: regular rate, normal rhythm, normal heart sounds. Absent: systolic murmur, diastolic murmur, rubs, gallop, clicks Extremities exam: Present: full ROM, tenderness (Over the base of the right fifth digit.), normal capillary refill, other (There is mild soft tissue sw elling and ecchymosis noted over the dorsal aspect of the right hand at the base of the right fifth digit extending up onto the finger. Skin is otherwise pink, warm, dry. Cap refills less than 3 seconds. Radial pulses 2+ and equal bilaterally.). Absent: normal inspection, pedal edema, joint swelling, calf tenderness Neurological exam: Present: alert, oriented X3, CN II-XII intact Psychiatric exam: Present: normal affect, normal mood Skin exam: Present: warm, dry, intact, normal color. Absent: rash Course Vital Signs 04/14/20 04/14/20 18:03 19:47 Temperature 98.7 F 98.2 F Pulse Rate 57 L 52 L Respiratory 20 18 Rate Blood Pressure 155/71 157/78 O2 Sat by Pulse 97 96 Oximetry Medical Decision Making - Medical Decision Making 80-year-old male patient presents to the emergency department today for evaluation of injury to the right fifth digit. Physical examination did reveal mild soft tissue swelling and ecchymosis over the base of the finger. X-ray was obtained and did show an intra-articular fracture of the proximal phalanx. He will be placed in a splint. Patient will be discharged to follow up with his primary care physician for recheck in 1-2 days. Return parameters were discu ssed in detail. Patient verbalizes understanding and agrees with this plan. Disposition Clinical Impression: Fracture of proximal phalanx of right little finger Disposition: HOME SELF-CARE Condition: Good Instructions (If sedation given, give patient instructions): Finger Fracture (ED) Additional Instructions: Rest, elevate, ice the right hand. Wear the splint for comfort and support. HER primary care physician for recheck in 1-2 days. Return to the emergency department immediately for any new, worsening, or concerning symptoms. Is patient prescribed a controlled substance at d/c from ED?: No Referrals: Reilly Higginbotham MD [Primary Care Provider] - 1-2 days Time of Disposition: 19:37
--- NOTE | 2020-04-14 19:15 | XR ---
EXAMINATION TYPE: XR finger RT DATE OF EXAM: 04/14/2020 COMPARISON: NONE HISTORY: Trauma. Pain. TECHNIQUE: 3 views. FINDINGS: There is nondisplaced oblique fracture of the proximal shaft of the proximal phalanx of the little fi nger right hand. Fracture line extends to the MP joints. There is no dislocation. IMPRESSION: Acute nondisplaced intra-articular fracture of the proximal phalanx of the little finger right hand.
[2020-04-14] MEDS ORDERED: ACET/COD 300 MG/30 MG STARTER PACK 6 TAB BTL PO STA (19:38)
[2020-04-14 19:48] VITALS: BP 157/78; PULSE 52; RESP 18; TEMP 98.2
== END 2020-04-14 19:55 | disposition home or self-care (01) ==
LOC: EC 17:51
DX: S62.646A Nondisplaced fracture of proximal phalanx of right little finger, initial encounter for closed fracture (principal); F41.9 Anxiety disorder, unspecified; F32.9 Major depressive disorder, single episode, unspecified; E11.40 Type 2 diabetes mellitus with diabetic neuropathy, unspecified; K21.9 Gastro-esophageal reflux disease without esophagitis; E78.5 Hyperlipidemia, unspecified; G20 Parkinson's disease; I10 Essential (primary) hypertension; E07.9 Disorder of thyroid, unspecified; Z79.4 Long term (current) use of insulin; Z79.890 Hormone replacement therapy; Z79.899 Other long term (current) drug therapy; Z95.5 Presence of coronary angioplasty implant and graft; Z85.038 Personal history of other malignant neoplasm of large intestine; Z96.651 Presence of right artificial knee joint; W10.9XXA Fall (on) (from) unspecified stairs and steps, initial encounter; Y92.009 Unspecified place in unspecified non-institutional (private) residence as the place of occurrence of the external cause; Z80.8 Family history of malignant neoplasm of other organs or systems
CPT/HCPCS: 99283

== ENCOUNTER → 2020-07-03 | Outpatient (CLI) | payer MEDICARE ==
[2020-07-03 15:17] LABS: HCT 37.6 % (39.0-53.0); HGB 12.5 gm/dL (13.0-17.5); MCH 34.5 pg (25.0-35.0); MCHC 33.2 g/dL (31.0-37.0); Macrocytosis Slight; Mean Platelet Volume 9.2; Platelet Count 166 k/uL (150-450); RBC 3.61 m/uL (4.30-5.90); RDW 12.9 % (11.5-15.5); WBC 8.8 k/uL (3.8-10.6)
[2020-07-03 15:59] LABS: Appearance,Urine Clear (Clear); Bilirubin,Urine Negative (Negative); Blood,Urine Negative (Negative); Color,Urine Light Yellow; Glucose,Urine (UA) Negative (Negative); Ketones,Urine Negative (Negative); Leukocyte Esterase,Urine Negative (Negative); Nitrite,Urine Negative (Negative); PH, Urine 5.5 (5.0-8.0); Protein,Urine Trace (Negative); Urobilinogen,Urine <2.0 mg/dL (<2.0)
[2020-07-03 20:47] LABS: % Iron Saturation 37.89 (15.00-50.00); African American GFR (CKD) 42.6 (60.0-200.0); Albumin 4.3 g/dL (3.80-4.90); Albumin/Globulin Ratio 1.95 (1.60-3.17); BUN/Creat Ratio 17.65 Ratio (12.00-20.00); Calcium 8.6 mg/dL (8.7-10.3); Globulin 2.2 g/dL (1.6-3.3); Magnesium 2.3 mg/dL (1.5-2.4); Non-African American GFR(CKD) 36.7 (60.0-200.0); Phosphorus 3.9 mg/dL (2.4-5.1); Potassium 4.5 mmol/L (3.5-5.5); Total Bilirubin 0.2 mg/dL (0.2-1.2); Total Protein 6.5 g/dL (6.2-8.2); Uric Acid 6.4 mg/dL (3.7-8.7)
[2020-07-03 21:15] LABS: Urine Creatinine 41.3 mg/dL
== END | disposition home or self-care (01) ==
LOC: LABWHC1 13:38
PROVIDERS: ATTEND Internal Medicine
DX: N18.30 Chronic kidney disease, stage 3 unspecified (principal)
CPT/HCPCS: 36415; 80053; 81003; 82043; 82306; 82570; 82728; 83540; 83550; 83735; 83970; 84100; 84550; 85027

== ENCOUNTER 2020-07-11 10:32 | Inpatient (IN) | payer MEDICARE ==
--- NOTE | 2020-07-11 11:12 | ED ---
Abdominal Pain HPI - General Chief Complaint: Abdominal Pain Stated Complaint: no appetite/nausea Time Seen by Provider: 07/11/20 10:42 Source: patient, RN notes reviewed, old records reviewed Mode of arrival: ambulatory Limitations: no limitations - History of Present Illness Initial Comments: Patient's an 80-year-old male presents emergency department today for evaluation with complaints of nausea and body aches and runny nose feeling unwell for the past 2 days. He reports hea feals weak. Patient reports he has no current pain at this time. He states that he just has multiple body aches movements. He did take some Motrin earlier today. Patient did mention that last week he was under a lot of stress and reports a family member recently . He felt that at times last week his heart was racing. He denies any chest pain or heart racing symptoms at this time. - Related Data Home Medications Medication Instructions Recorded Confirmed Sertraline [Zoloft] 100 mg PO BID 02/18/16 07/11/20 QUEtiapine [SEROquel] 50 mg PO HS 08/09/16 07/11/20 rOPINIRole HCL [Requip] 0.5 mg PO HS 08/20/16 07/11/20 Primidone [Mysoline] 150 mg PO BID 10/27/17 07/11/20 Albuterol Nebulized [Ventolin 2.5 mg INHALATION RT-TID 12/11/18 07/11/20 Nebulized] Levothyroxine Sodium [Synthroid] 50 mcg PO QAM 12/11/18 07/11/20 atenoloL [Tenormin] 25 mg PO QAM 12/11/18 07/11/20 calcitrioL [Calcitriol] 0.25 mcg PO MOFR 12/11/18 07/11/20 Furosemide [Lasix] 40 mg PO DAILY 12/15/18 07/11/20 Gabapentin 600 mg PO BID 12/15/18 07/11/20 Ergocalciferol [Vitamin D2 50,000 unit PO WE 04/17/19 07/11/20 (DRISDOL)] lisinopriL [Zestril] 5 mg PO QAM 04/17/19 07/11/20 Therabreath Dry Mouth 1 spray PO DAILY 06/22/19 07/11/20 Diclofenac Sodium Gel [Voltaren 2 gm TOPICAL QID 07/11/20 07/11/20 Gel] Fluticasone Propionate 2 spray EA NOSTRIL DAILY 07/11/20 07/11/20 Insulin Glargine,Hum.rec.anlog 40 unit SQ HS 07/11/20 07/11/20 [Lantus Solostar] Lactulose [Constulose] 20 gm PO TID-W/MEALS 07/11/20 07/11/20 Nitroglycerin Sl Tabs [Nitrostat] 0.4 mg SUBLINGUAL Q5M PRN 07/11/20 07/11/20 Rosuvastatin [Crestor] 20 mg PO DAILY 07/11/20 07/11/20 Tamsulosin [Flomax] 0.4 mg PO BID 07/11/20 07/11/20 traZODone HCL [Desyrel] 50 mg PO HS 07/11/20 07/11/20 Previous Rx's Medication Instructions Recorded Omeprazole [PriLOSEC] 40 mg PO AC-BRKFST #14 capsule. 02/09/19 Allergies Allergy/AdvReac Type Severity Reaction Status Date / Time No Known Allergies Allergy Verified 07/11/20 10:37 Review of Systems ROS Statement: Those systems with pertinent positive or pertinent negative responses have been documented in the HPI. ROS Other: All systems not noted in ROS Statement are negative. Past Medical History Past Medical History: Atrial Fibrillation, Cancer, Diabetes Mellitus, GERD/Reflux, Hyperlipidemia, Hypertension, Renal Disease, Thyroid Disorder Additional Past Medical History / Comment(s): artificial Left eye,hx bleeding from left eye globe, restless leg sydrome, COLON CANCER-no chemo or radiation, neuropathy, parkinsons, chronic back pain, History of Any Multi-Drug Resistant Organisms: None Reported Past Surgical History: Back Surgery, Bowel Resection, Heart Catheterization, Joint Replacement, Prostate Surgery Additional Past Surgical History / Comment(s): right knee replaced, back sx with titanium gavin Past Anesthesia/Blood Transfusion Reactions: Previous Problems w/ Anesthesia Additional Past Anesthesia/Blood Transfusion Reaction / Comment(s): "couldn't move left arm after knee or back surgery lasted approx 1 hour post op- resolved",no hx blood transfusion Past Psychological History: Anxiety, Depression Smoking Status: Never smoker Past Alcohol Use History: None Reported Past Drug Use History: None Reported - Past Family History Mother Family Medical History: Cancer, Hyperlipidemia, Hypertension Additional Family Medical History / Comment(s): ca: brain Father Family Medical History: Hyperlipidemia, Hypertension General Exam - General Exam Comments Initial Comments: 80 year old male, no distress. Limitations: no limitations General appearance: alert, in no apparent distress Head exam: Present: atraumatic, normocephalic, normal inspection Eye exam: Present: normal appearance, PERRL, EOMI. Absent: scleral icterus, conjunctival injection, periorbital swelling ENT exam: Present: normal exam, mucous membranes moist Neck exam: Present: normal inspection. Absent: tenderness, meningismus, lymphadenopathy Respiratory exam: Present: normal lung sounds bilaterally. Absent: respiratory distress, wheezes, rales, rhonchi, stridor Cardiovascular Exam: Present: regular rate, normal rhythm, normal heart sounds. Absent: systolic murmur, diastolic murmur, rubs, gallop, clicks GI/Abdominal exam: Present: soft, normal bowel sounds. Absent: distended, tenderness, guarding, rebound, rigid Extremities exam: Present: normal inspection, full ROM, normal capillary refill. Absent: tenderness, pedal edema, joint swelling, calf tenderness Back exam: Present: normal inspection Neurological exam: Present: alert, oriented X3, CN II-XII intact Psychiatric exam: Present: normal affect, normal mood Skin exam: Present: warm, dry, intact, normal color. Absent: rash Course Vital Signs 07/11/20 07/11/20 07/11/20 10:35 10:56 12:28 Temperature 97.9 F 98.4 F Pulse Rate 62 65 Respiratory 24 18 Rate Blood Pressure 181/85 159/79 O2 Sat by Pulse 100 97 Oximetry Medical Decision Making - Medical Decision Making 6-year-old male presents with weakness fatigue and poor appetite upper res piratory congestion for the past 2 days. Patient's labs reviewed and otherwise unremarkable. Chest x-ray shows atypical pneumonia appearance. Discussed possible to covert [address] Riggs discussed with [employer] for Dr. Higginbotham. Patient will be admitted at this time. - Lab Data Result diagrams: 07/11/20 11:50 07/11/20 11:50 Lab Results 07/11/20 07/11/20 07/11/20 Range/Units 11:50 11:50 11:50 WBC 9.3 (3.8-10.6) k/uL RBC 3.95 L (4.30-5.90) m/uL Hgb 13.5 (13.0-17.5) gm/dL Hct 40.2 (39.0-53.0) % MCV 101.9 H (80.0-100.0) fL MCH 34.2 (25.0-35.0) pg MCHC 33.5 (31.0-37.0) g/dL RDW 12.9 (11.5-15.5) % Plt Count 179 (150-450) k/uL Neutrophils % 71 % Lymphocytes % 19 % Monocytes % 5 % Eosinophils % 3 % Basophils % 1 % Neutrophils # 6.7 (1.3-7.7) k/uL Lymphocytes # 1.8 (1.0-4.8) k/uL Monocytes # 0.4 (0-1.0) k/uL Eosinophils # 0.3 (0-0.7) k/uL Basophils # 0.1 (0-0.2) k/uL Macrocytosis Slight PT 10.1 (9.0-12.0) sec INR 1.0 (<1.2) APTT 35.8 H (22.0-30.0) sec Sodium 139 (137-145) mmol/L Potassium 4.6 (3.5-5.1) mmol/L Chloride 110 H (98-107) mmol/L Carbon Dioxide 19 L (22-30) mmol/L Anion Gap 10 mmol/L BUN 26 H (9-20) mg/dL Creatinine 1.79 H (0.66-1.25) mg/dL Est GFR (CKD-EPI)AfAm 40 (>60 ml/min/1.73 sqM) Est GFR (CKD-EPI)NonAf 35 (>60 ml/min/1.73 sqM) Glucose 138 H (74-99) mg/dL Plasma Lactic Acid Adrian (0.7-2.0) mmol/L Calcium 8.9 (8.4-10.2) mg/dL Magnesium 2.4 H (1.6-2.3) mg/dL Total Bilirubin 0.4 (0.2-1.3) mg/dL AST 23 (17-59) U/L ALT 13 (4-49) U/L Alkaline Phosphatase 179 H (38-126) U/L Lactate Dehydrogenase 414 (313-618) U/L Troponin I (0.000-0.034) ng/mL C-Reactive Protein 17.7 H (<10.0) mg/L Total Protein 7.1 (6.3-8.2) g/dL Albumin 4.2 (3.5-5.0) g/dL 07/11/20 07/11/20 Range/Units 11:50 11:50 WBC (3.8-10.6) k/uL RBC (4.30-5.90) m/uL Hgb (13.0-17.5) gm/dL Hct (39.0-53.0) % MCV (80.0-100.0) fL MCH (25.0-35.0) pg MCHC (31.0-37.0) g/dL RDW (11.5-15.5) % Plt Count (150-450) k/uL Neutrophils % % Lymphocytes % % Monocytes % % Eosinophils % % Basophils % % Neutrophils # (1.3-7.7) k/uL Lymphocytes # (1.0-4.8) k/uL Monocytes # (0-1.0) k/uL Eosinophils # (0-0.7) k/uL Basophils # (0-0.2) k/uL Macrocytosis PT (9.0-12.0) sec INR (<1.2) APTT (22.0-30.0) sec Sodium (137-145) mmol/L Potassium (3.5-5.1) mmol/L Chloride (98-107) mmol/L Carbon Dioxide (22-30) mmol/L Anion Gap mmol/L BUN (9-20) mg/dL Creatinine (0.66-1.25) mg/dL Est GFR (CKD-EPI)AfAm (>60 ml/min/1.73 sqM) Est GFR (CKD-EPI)NonAf (>60 ml/min/1.73 sqM) Glucose (74-99) mg/dL Plasma Lactic Acid Adrian 1.0 (0.7-2.0) mmol/L Calcium (8.4-10.2) mg/dL Magnesium (1.6-2.3) mg/dL Total Bilirubin (0.2-1.3) mg/dL AST (17-59) U/L ALT (4-49) U/L Alkaline Phosphatase (38-126) U/L Lactate Dehydrogenase (313-618) U/L Troponin I <0.012 (0.000-0.034) ng/mL C-Reactive Protein (<10.0) mg/L Total Protein (6.3-8.2) g/dL Albumin (3.5-5.0) g/dL 07/11/20 11:26 EKG shows sinus bradycardia left bundle-branch block. Abnormal EKG. Ventricular rate of 57 bpm. Pulse 206 ms. QS duration is 164 ms. QT QTc is 444/441 ms. - Radiology Data Radiology results: report reviewed Disposition Clinical Impression: Pneumonia Disposition: ADMITTED IP TO THIS HOSP Condition: Stable Is patient prescribed a controlled substance at d/c from ED?: No Referrals: Reilly Higginbotham MD [Primary Care Provider] - 1-2 days Time of Disposition: 13:34
[2020-07-11] MEDS ORDERED: ACETAMINOPHEN TAB 500 MG TAB PO STA (11:23)
[2020-07-11] MEDS ORDERED: ONDANSETRON 4 MG/2 ML VIAL IVP STA (11:23)
--- NOTE | 2020-07-11 12:00 | XR ---
EXAMINATION TYPE: XR chest 1V portable DATE OF EXAM: 07/11/2020 CLINICAL HISTORY: Suspected COVID-19 pneumonia. TECHNIQUE: Portable frontal view of the chest. COMPARISON: 06/22/2019 chest radiograph FINDINGS: The cardiomediastinal silhouette is within normal limits for size. There are diffuse incre ased interstitial opacities of the bilateral lungs. No pleural effusion, or pneumothorax seen. Degene rative change of the shoulders. IMPRESSION: Hazy appearance of the lungs with interstitial opacities. Findings likely represent atyp ical pneumonia, including Covid 19 viral infection.
[2020-07-11 12:10] LABS: Basophils # (A) 0.1 k/uL (0-0.2); Basophils % (A) 1 %; Eosinophils # (A) 0.3 k/uL (0-0.7); Eosinophils % (A) 3 %; HCT 40.2 % (39.0-53.0); HGB 13.5 gm/dL (13.0-17.5); Lymphocytes # (A) 1.8 k/uL (1.0-4.8); Lymphocytes % (A) 19 %; MCH 34.2 pg (25.0-35.0); MCHC 33.5 g/dL (31.0-37.0); MCV 101.9 fL (80.0-100.0); Macrocytosis Slight; Mean Platelet Volume 9.4; Monocytes # (A) 0.4 k/uL (0-1.0); Monocytes % (A) 5 %; Neutrophils # (A) 6.7 k/uL (1.3-7.7); Neutrophils % (A) 71 %; Platelet Count 179 k/uL (150-450); RBC 3.95 m/uL (4.30-5.90); RDW 12.9 % (11.5-15.5); WBC 9.3 k/uL (3.8-10.6)
[2020-07-11 12:16] LABS: Albumin 4.2 g/dL (3.5-5.0); C Reactive Protein 17.7 mg/L (<10.0); Calcium 8.9 mg/dL (8.4-10.2); Magnesium 2.4 mg/dL (1.6-2.3); Potassium 4.6 mmol/L (3.5-5.1); Total Bilirubin 0.4 mg/dL (0.2-1.3); Total Protein 7.1 g/dL (6.3-8.2)
[2020-07-11 12:18] LABS: Partial Thromboplastin Time 35.8 sec (22.0-30.0); Prothrombin Time 10.1 sec (9.0-12.0)
[2020-07-11] MEDS ORDERED: SODIUM CHLORIDE 0.9% 1,000 ML IV ONE (13:23)
[2020-07-11] MEDS: SODIUM CHLORIDE 0.9% 1,000 ML IV SCH (13:32)
[2020-07-11] MEDS ORDERED: AZITHROMYCIN 500 MG in SODIUM CHLORIDE 0.9% 250 ML IVPB STA (13:33)
[2020-07-11] MEDS ORDERED: IBUPROFEN 400 MG TAB PO PRN (13:38)
[2020-07-11] MEDS ORDERED: ONDANSETRON 4 MG/2 ML VIAL IVP PRN (13:38)
[2020-07-11] MEDS ORDERED: ACETAMINOPHEN TAB 325 MG TAB PO PRN (13:38)
[2020-07-11] MEDS ORDERED: NALOXONE 0.4 MG/ML 1 ML VIAL IV PRN (13:38)
[2020-07-11] MEDS ORDERED: NITROGLYCERIN SL TABS 0.4 MG TAB SUBLINGUAL PRN (13:40)
[2020-07-11 14:33] LABS: Glucose,Whole Blood 172 mg/dL (75-99)
[2020-07-11] MEDS: IBUPROFEN 400 MG TAB PO PRN (15:31)
[2020-07-11] MEDS: FUROSEMIDE 40 MG TAB PO SCH (15:31)
[2020-07-11] MEDS: GABAPENTIN 300 MG CAP PO SCH ×2 (15:32→21:17)
[2020-07-11] MEDS: PRIMIDONE 50 MG TAB PO SCH ×2 (15:36→21:17)
[2020-07-11] MEDS: MORPHINE SULFATE 4 MG/ML SYRINGE IV PRN ×2 (16:42→21:20)
[2020-07-11 16:43] LABS: Glucose,Whole Blood 131 mg/dL (75-99)
[2020-07-11] MEDS: INSULIN ASPART (NovoLOG) 100 UNIT/ML VIAL SQ SCH ×2 (17:44→21:19)
[2020-07-11] MEDS: LACTULOSE 20 GM/30 ML CUP PO SCH (17:51)
[2020-07-11] MEDS: DICLOFENAC SODIUM GEL 100 GM TUBE TOPICAL SCH ×2 (17:51→21:19)
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
[2020-07-11 20:36] LABS: Glucose,Whole Blood 156 mg/dL (75-99)
[2020-07-11] MEDS: ALBUTEROL NEBULIZED 2.5 MG/3 ML INHALATION SCH (20:58)
[2020-07-11] MEDS ORDERED: PRIMIDONE 50 MG TAB PO SCH (21:00)
[2020-07-11] MEDS ORDERED: GABAPENTIN 300 MG CAP PO SCH (21:00)
[2020-07-11] MEDS: traZODone HCL 50 MG TAB PO SCH (21:17)
[2020-07-11] MEDS: SERTRALINE 100 MG TAB PO SCH (21:17)
[2020-07-11] MEDS: INSULIN DETEMIR (LEVEMIR) 100 UNIT/ML SYR SQ SCH (21:18)
[2020-07-11] MEDS: TAMSULOSIN 0.4 MG CAP.ER.24H PO SCH (21:18)
[2020-07-11 21:54] LABS: Ferritin 134.9 ng/mL (22.0-322.0)
[2020-07-12] MEDS: SODIUM CHLORIDE 0.9% 1,000 ML IV SCH ×3 (01:07→21:00)
[2020-07-12] MEDS: QUEtiapine 50 MG TAB PO SCH ×2 (01:07→20:59)
[2020-07-12] MEDS: LEVOTHYROXINE 50 MCG TAB PO SCH (05:19)
[2020-07-12 07:20] LABS: Basophils # (A) 0.1 k/uL (0-0.2); Basophils % (A) 1 %; Eosinophils # (A) 0.4 k/uL (0-0.7); Eosinophils % (A) 5 %; HCT 37.6 % (39.0-53.0); HGB 12.2 gm/dL (13.0-17.5); Lymphocytes # (A) 1.7 k/uL (1.0-4.8); Lymphocytes % (A) 21 %; MCH 33.6 pg (25.0-35.0); MCHC 32.4 g/dL (31.0-37.0); MCV 103.7 fL (80.0-100.0); Macrocytosis Slight; Mean Platelet Volume 9.3; Monocytes # (A) 0.5 k/uL (0-1.0); Monocytes % (A) 7 %; Neutrophils # (A) 5.1 k/uL (1.3-7.7); Neutrophils % (A) 65 %; Platelet Count 166 k/uL (150-450); RBC 3.62 m/uL (4.30-5.90); RDW 13.1 % (11.5-15.5); WBC 7.8 k/uL (3.8-10.6)
[2020-07-12 07:35] LABS: Glucose,Whole Blood 58 mg/dL (75-99)
[2020-07-12 07:53] LABS: Glucose,Whole Blood 62 mg/dL (75-99)
[2020-07-12 08:06] LABS: Glucose,Whole Blood 71 mg/dL (75-99)
[2020-07-12] MEDS: INSULIN ASPART (NovoLOG) 100 UNIT/ML VIAL SQ SCH ×4 (08:23→21:00)
[2020-07-12] MEDS: GABAPENTIN 300 MG CAP PO SCH ×2 (08:31→21:00)
[2020-07-12] MEDS: atenoloL 25 MG TAB PO SCH (08:32)
[2020-07-12] MEDS: AZITHROMYCIN 500 MG TAB PO SCH (08:32)
[2020-07-12] MEDS: lisinopriL 5 MG TAB PO SCH (08:32)
[2020-07-12] MEDS: ATORVASTATIN 40 MG TAB PO SCH (08:32)
[2020-07-12] MEDS: TAMSULOSIN 0.4 MG CAP.ER.24H PO SCH ×2 (08:32→20:59)
[2020-07-12] MEDS: PRIMIDONE 50 MG TAB PO SCH ×2 (08:32→21:00)
[2020-07-12] MEDS: SERTRALINE 100 MG TAB PO SCH ×2 (08:32→20:59)
[2020-07-12] MEDS: FUROSEMIDE 40 MG TAB PO SCH (08:32)
[2020-07-12] MEDS: PANTOPRAZOLE 40 MG TABLET PO SCH (08:33)
[2020-07-12] MEDS: FLUTICASONE 50MCG/SPRAY NASAL 16GM EA NOSTRIL SCH (08:33)
[2020-07-12] MEDS: LACTULOSE 20 GM/30 ML CUP PO SCH ×3 (08:33→17:12)
[2020-07-12] MEDS: DICLOFENAC SODIUM GEL 100 GM TUBE TOPICAL SCH ×4 (08:34→21:01)
[2020-07-12] MEDS ORDERED: FUROSEMIDE 40 MG TAB PO SCH (09:00)
[2020-07-12] MEDS ORDERED: [UNRECOGNIZED DRUG - OTHER] PO SCH (09:00)
[2020-07-12 09:01] LABS: ALT 11 U/L (4-49); AST 20 U/L (17-59); African American GFR (CKD) 43 (>60 ml/min/1.73 sqM); Albumin 3.6 g/dL (3.5-5.0); Albumin/Globulin Ratio 1.4; Alkaline Phosphatase 137 U/L (38-126); Anion Gap 5 mmol/L; Blood Urea Nitrogen 21 mg/dL (9-20); Calcium 8.1 mg/dL (8.4-10.2); Carbon Dioxide 24 mmol/L (22-30); Chloride 113 mmol/L (98-107); Globulin 2.5 g/dL; Glucose 59 mg/dL (74-99); Non-African American GFR(CKD) 37 (>60 ml/min/1.73 sqM); Potassium 3.6 mmol/L (3.5-5.1); Sodium 142 mmol/L (137-145); Total Bilirubin 0.3 mg/dL (0.2-1.3); Total Protein 6.1 g/dL (6.3-8.2)
[2020-07-12] MEDS: ALBUTEROL NEBULIZED 2.5 MG/3 ML INHALATION SCH ×3 (09:59→20:51)
[2020-07-12 10:42] LABS: Glucose,Whole Blood 143 mg/dL (75-99)
[2020-07-12 11:58] LABS: Glucose,Whole Blood 138 mg/dL (75-99)
[2020-07-12 12:33] VITALS: BMI 27.8
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
[2020-07-12 16:59] LABS: Glucose,Whole Blood 107 mg/dL (75-99)
[2020-07-12 20:45] LABS: Glucose,Whole Blood 158 mg/dL (75-99)
[2020-07-12] MEDS: traZODone HCL 50 MG TAB PO SCH (20:59)
[2020-07-12] MEDS: INSULIN DETEMIR (LEVEMIR) 100 UNIT/ML SYR SQ SCH (21:01)
--- NOTE | 2020-07-13 00:31 | P.PN ---
Subjective Progress Note Date: 07/12/20 Mr. Duncan is a 80-year-old male with past medical history of atrial fibrillation, diabetes mellitus, GERD, hypertension, hyperlipidemia, sleep apnea, thyroid disorder coming into the hospital with a chief complaint of nausea myalgia rhinorrhea and generalized malaise for 2 days. Patient had a chest x-ray showing hazy appearance of the lungs with interstitial opacities for possible COVID-19 viral infection versus atypical pneumonia. Patient was started on ceftriaxone and Zithromax and admitted for further work-up. On 07/12/2020-patient is resting comfortably in bed appears to be no acute distress. No acute events reported by nursing staff overnight. Patient denies having any cough difficulty in breathing. No abdominal pain nausea vomiting or diarrhea. Not dysuria or hematuria. Patient's vitals reviewed from this morning showing temperature of 98.1, heart rate 64, respiratory rate 17, saturating at 90/72. Patient's labs from this morning show a white count of 7.8 hemoglobin 12.2, platelets 166. Sodium 142, potassium 3.6, chloride 113, bicarb 24, BUN 21, creatinine 1.69. Active Medications Acetaminophen (Acetaminophen Tab 325 Mg Tab) 650 mg PO Q6HR PRN PRN Reason: Mild Pain or Fever > 100.5 Albuterol Sulfate (Albuterol Nebulized 2.5 Mg/3 Ml) 2.5 mg INHALATION RT-TID [facility] Last Admin: 07/12/20 20:51 Dose: 2.5 mg Documented by: Atenolol (Atenolol 25 Mg Tab) 25 mg PO QAM [facility] Last Admin: 07/12/20 08:32 Dose: 25 mg Documented by: Atorvastatin Calcium (Atorvastatin 40 Mg Tab) 40 mg PO DAILY [facility] Last Admin: 07/12/20 08:32 Dose: 40 mg Documented by: Azithromycin (Azithromycin 500 Mg Tab) 500 mg PO DAILY [facility] Last Admin: 07/12/20 08:32 Dose: 500 mg Documented by: Calcitriol (Calcitriol 0.25 Mcg Cap) 0.25 mcg PO MOFR [facility] Last Admin: 07/11/20 15:37 Dose: Not Given Documented by: Diclofenac Sodium (Diclofenac Sodium Gel 100 Gm Tube) 2 gm TOPICAL QID [facility] Last Admin: 07/12/20 21:01 Dose: 2 gm Documented by: Ergocalciferol (Ergocalciferol 50,000 Unit Cap) 50,000 unit PO WE [facility] Fluticasone Propionate (Fluticasone 50mcg/[place] Nasal 16gm) 2 spray EA NOSTRIL DAILY [facility] Last Admin: 07/12/20 08:33 Dose: 2 spray Documented by: Furosemide (Furosemide 40 Mg Tab) 40 mg PO DAILY [facility] Last Admin: 07/12/20 08:32 Dose: 40 mg Documented by: Gabapentin (Gabapentin 300 Mg Cap) 600 mg PO BID [facility] Last Admin: 07/12/20 21:00 Dose: 600 mg Documented by: Sodium Chloride (Saline 0.9%) 1,000 mls @ 100 mls/hr IV .Q10H [facility] Last Admin: 07/12/20 21:00 Dose: 100 mls/hr Documented by: Ceftriaxone Sodium 1 gm/ (Sodium Chloride) 50 mls @ 100 mls/hr IVPB Q24HR [facility] Last Admin: 07/12/20 08:31 Dose: 100 mls/hr Documented by: Ibuprofen (Ibuprofen 400 Mg Tab) 400 mg PO Q6HR PRN PRN Reason: Mild Pain or Fever > 100.5 Last Admin: 07/11/20 15:31 Dose: 400 mg Documented by: Insulin Aspart (Insulin Aspart (Novolog) 100 Unit/Ml Vial) 0 unit SQ [facility]; Protocol Last Admin: 07/12/20 21:00 Dose: 1 unit Documented by: Insulin Detemir (Insulin Detemir (Levemir) 100 Unit/Ml Syr) 40 unit SQ [facility] Last Admin: 07/12/20 21:01 Dose: 40 unit Documented by: Lactulose (Lactulose 20 Gm/30 Ml Cup) 20 gm PO TID-W/MEALS [facility] Last Admin: 07/12/20 17:12 Dose: Not Given Documented by: Levothyroxine Sodium (Levothyroxine 50 Mcg Tab) 50 mcg PO QAM@0630 [facility] Last Admin: 07/12/20 05:19 Dose: 50 mcg Documented by: Lisinopril (Lisinopril 5 Mg Tab) 5 mg PO QAM [facility] Last Admin: 07/12/20 08:32 Dose: 5 mg Documented by: Morphine Sulfate (Morphine Sulfate 4 Mg/Ml Syringe) 4 mg IV Q4HR PRN PRN Reason: Severe Pain Last Admin: 07/11/20 21:20 Dose: 4 mg Documented by: Naloxone HCl (Naloxone 0.4 Mg/Ml 1 Ml Vial) 0.2 mg IV Q2M PRN PRN Reason: Opioid Reversal Nitroglycerin (Nitroglycerin Sl Tabs 0.4 Mg Tab) 0.4 mg SUBLINGUAL Q5M PRN PRN Reason: Chest Pain Ondansetron HCl (Ondansetron 4 Mg/2 Ml Vial) 4 mg IVP Q8HR PRN PRN Reason: Nausea And Vomiting Pantoprazole Sodium (Pantoprazole 40 Mg Tablet) 40 mg PO AC-BRKFST [facility] Last Admin: 07/12/20 08:33 Dose: 40 mg Documented by: Primidone (Primidone 50 Mg Tab) 150 mg PO BID [facility] Last Admin: 07/12/20 21:00 Dose: 150 mg Documented by: Quetiapine Fumarate (Quetiapine 50 Mg Tab) 50 mg PO [facility] Last Admin: 07/12/20 20:59 Dose: 50 mg Documented by: Ropinirole HCl (Ropinirole Hcl 0.25 Mg Tab) 0.5 mg PO [facility] Last Admin: 07/12/20 20:59 Dose: 0.5 mg Documented by: Sertraline HCl (Sertraline 100 Mg Tab) 100 mg PO BID [facility] Last Admin: 07/12/20 20:59 Dose: 100 mg Documented by: Tamsulosin HCl (Tamsulosin 0.4 Mg Cap.Er.24h) 0.4 mg PO BID [facility] Last Admin: 07/12/20 20:59 Dose: 0.4 mg Documented by: Trazodone HCl (Trazodone Hcl 50 Mg Tab) 50 mg PO [facility] Last Admin: 07/12/20 20:59 Dose: 50 mg Documented by: Objective - Vital Signs Vital signs: Vital Signs Temp 98.1 F 07/12/20 15:00 Pulse 62 07/12/20 15:00 Resp 18 07/11/20 23:12 BP 158/69 07/12/20 15:00 Pulse Ox 97 07/12/20 15:00 Intake & Output 07/11/20 07/12/20 07/12/20 18:59 06:59 18:59 Intake Total 500 Balance 500 Weight 80.739 kg 80.739 kg Intake: Intake, IV Titration 200 Amount Sodium Chloride 0.9% 1, 200 000 ml @ 100 mls/hr IV . Q10H [facility] Rx#:[id number] Oral 300 Other: Voiding Method Toilet - Exam GENERAL: no acute distress, obese HEENT: Pupils are round and equally reacting to light. EOMI. No scleral icterus. No conjunctival pallor. Normocephalic, atraumatic. No pharyngeal erythema. No thyromegaly. CARDIOVASCULAR: S1 and S2 present. No murmurs, rubs, or gallops. PULMONARY: Chest is clear to auscultation, no wheezing or crackles. ABDOMEN: Soft, nontender, nondistended, normoactive bowel sounds. No palpable organomegaly. MUSCULOSKELETAL: No joint swelling or deformity. -EXTREMITIES: No cyanosis, clubbing,. No edema NEUROLOGICAL: Alert,awake and orieneted X 3. No focal deficits. SKIN: No rashes. No petechiae - Labs CBC & Chem 7: 07/12/20 06:49 07/12/20 06:49 Labs: Abnormal Lab Results - Last 24 Hours (Table) 07/11/20 07/11/20 07/12/20 Range/Units 16:41 20:34 06:49 RBC 3.62 L (4.30-5.90) m/uL Hgb 12.2 L (13.0-17.5) gm/dL Hct 37.6 L (39.0-53.0) % MCV 103.7 H (80.0-100.0) fL Chloride (98-107) mmol/L BUN (9-20) mg/dL Creatinine (0.66-1.25) mg/dL Glucose (74-99) mg/dL POC Glucose (mg/dL) 131 H 156 H (75-99) mg/dL Calcium (8.4-10.2) mg/dL Alkaline Phosphatase (38-126) U/L Total Protein (6.3-8.2) g/dL 07/12/20 07/12/20 07/12/20 Range/Units 06:49 07:34 07:52 RBC (4.30-5.90) m/uL Hgb (13.0-17.5) gm/dL Hct (39.0-53.0) % MCV (80.0-100.0) fL Chloride 113 H (98-107) mmol/L BUN 21 H (9-20) mg/dL Creatinine 1.69 H (0.66-1.25) mg/dL Glucose 59 L (74-99) mg/dL POC Glucose (mg/dL) 58 L 62 L (75-99) mg/dL Calcium 8.1 L (8.4-10.2) mg/dL Alkaline Phosphatase 137 H (38-126) U/L Total Protein 6.1 L (6.3-8.2) g/dL 07/12/20 07/12/20 07/12/20 Range/Units 08:05 10:38 11:57 RBC (4.30-5.90) m/uL Hgb (13.0-17.5) gm/dL Hct (39.0-53.0) % MCV (80.0-100.0) fL Chloride (98-107) mmol/L BUN (9-20) mg/dL Creatinine (0.66-1.25) mg/dL Glucose (74-99) mg/dL POC Glucose (mg/dL) 71 L 143 H 138 H (75-99) mg/dL Calcium (8.4-10.2) mg/dL Alkaline Phosphatase (38-126) U/L Total Protein (6.3-8.2) g/dL Microbiology - Last 24 Hours (Table) 07/11/20 11:50 Blood Culture - Preliminary Blood No Growth after 24 hours Assessment and Plan Assessment: ASSESSMENT Pneumonia-atypical pattern Covid 19 pending results Anemia Angina Asthma Atherosclerosis of the aorta Cerebro-vascular accident Diabetes type 2 Chronic kidney disease with GFR of 39-stage III Anxiety Degeneration of lumbar intervertebral disc Depressive disorder Hypertension Hyperlipidemia GERD Hypothyroidism Plan: Continue with ceftriaxone and Zithromax. COVID-19 results pending. Continue with the current medication regimen. Further recommendations to follow depending on the progress of the patient. Anticipate discharge in the next 24 hours.
[2020-07-13] MEDS: SODIUM CHLORIDE 0.9% 1,000 ML IV SCH ×2 (05:36→16:34)
[2020-07-13] MEDS: LEVOTHYROXINE 50 MCG TAB PO SCH (05:36)
[2020-07-13 06:27] LABS: Basophils % (A) 1 %; Eosinophils # (A) 0.4 k/uL (0-0.7); Eosinophils % (A) 6 %; HCT 36.9 % (39.0-53.0); HGB 12.1 gm/dL (13.0-17.5); Lymphocytes % (A) 25 %; MCH 34.1 pg (25.0-35.0); MCHC 32.8 g/dL (31.0-37.0); Macrocytosis Slight; Mean Platelet Volume 8.9; Monocytes # (A) 0.5 k/uL (0-1.0); Monocytes % (A) 6 %; Neutrophils # (A) 4.9 k/uL (1.3-7.7); Neutrophils % (A) 61 %; Platelet Count 170 k/uL (150-450); RBC 3.54 m/uL (4.30-5.90); RDW 13.2 % (11.5-15.5)
[2020-07-13 07:04] LABS: Glucose,Whole Blood 95 mg/dL (75-99)
[2020-07-13] MEDS: INSULIN ASPART (NovoLOG) 100 UNIT/ML VIAL SQ SCH ×2 (07:13→11:58)
[2020-07-13] MEDS: LACTULOSE 20 GM/30 ML CUP PO SCH ×2 (07:17→11:59)
[2020-07-13] MEDS: ATORVASTATIN 40 MG TAB PO SCH (07:20)
[2020-07-13] MEDS: lisinopriL 5 MG TAB PO SCH (07:20)
[2020-07-13] MEDS: PRIMIDONE 50 MG TAB PO SCH (07:20)
[2020-07-13] MEDS: AZITHROMYCIN 500 MG TAB PO SCH (07:20)
[2020-07-13] MEDS: TAMSULOSIN 0.4 MG CAP.ER.24H PO SCH (07:20)
[2020-07-13] MEDS: FLUTICASONE 50MCG/SPRAY NASAL 16GM EA NOSTRIL SCH (07:21)
[2020-07-13] MEDS: atenoloL 25 MG TAB PO SCH (07:21)
[2020-07-13] MEDS: DICLOFENAC SODIUM GEL 100 GM TUBE TOPICAL SCH ×2 (07:21→11:59)
[2020-07-13] MEDS: GABAPENTIN 300 MG CAP PO SCH (07:21)
[2020-07-13] MEDS: PANTOPRAZOLE 40 MG TABLET PO SCH (07:21)
[2020-07-13] MEDS: SERTRALINE 100 MG TAB PO SCH (07:21)
[2020-07-13] MEDS: FUROSEMIDE 40 MG TAB PO SCH (07:21)
[2020-07-13] MEDS: ALBUTEROL NEBULIZED 2.5 MG/3 ML INHALATION SCH ×2 (08:25→12:12)
[2020-07-13 08:41] VITALS: RESP 20
[2020-07-13 10:47] LABS: African American GFR (CKD) 42.6 (60.0-200.0); Anion Gap 9.4 mmol/L (4.00-12.00); BUN/Creat Ratio 13.53 Ratio (12.00-20.00); Calcium 8.2 mg/dL (8.7-10.3); Carbon Dioxide 22.6 mmol/L (21.6-31.8); Non-African American GFR(CKD) 36.7 (60.0-200.0); Potassium 4.1 mmol/L (3.5-5.5)
[2020-07-13 11:51] LABS: Glucose,Whole Blood 111 mg/dL (75-99)
--- NOTE | 2020-07-13 11:51 | P.PN ---
Subjective Progress Note Date: 07/13/20 Principal diagnosis: Generalized aches and pains, nausea This is a very pleasant 80-year-old gentleman who follows with Dr. Higginbotham as his primary care provider. He has a history of depression, hypothyroidism, hypertension, diabetes mellitus, atrial fibrillation, hyperlipidemia, colon cancer with bowel resection, chronic renal failure, obstructive sleep apnea no longer on CPAP. Former smoker. He presented here to the emergency room yesterday with a 2 day history of nausea, body aches, weakness. He denies any CoVID 19 exposures. He had recently traveled to [place] and back. Chest x- ray revealed hazy appearance of lungs with interstitial opacities and possible Covid 19 viral infection versus atypical pneumonia. We are consulted for the same. He is seen today on the regular medical floor. He is awake and alert in no acute distress. Denies any shortness of breath, cough or congestion. No fever, chills or night sweats. Maintaining O2 saturations in the mid 90s on room air. He's afebrile. Hemodynamically stable. White count 7.8. Hemoglobin 12.2. Lymphocytes 1.7. INR 1.0. Sodium 142. Potassium 3.6. Creatinine 1.69. LDH 414. C-reactive protein 17.7. Calcitonin 0.07. He was initiated on ceftriaxone and azithromycin. The patient is seen today 07/13/2020 in follow-up on the regular medical floor. He is awake and alert in no acute distress. Up ambulating in his room. He denies any shortness of breath, cough or congestion. Maintaining O2 saturations in the 90s on room air. His appetite is good. His been afebrile. Hemodynamically stable. Blood culture reveals no growth. Count 8.0. Hemoglobin 12.1. Sodium 144. Potassium 4.1. Creatinine 1.7. He remains on ceftriaxone and azithromycin. Covid 19 screen still pending. Objective - Vital Signs Vital signs: Vital Signs Temp 98.0 F 07/13/20 07:00 Pulse 68 07/13/20 08:41 Resp 20 07/13/20 07:00 BP 130/61 07/13/20 07:00 Pulse Ox 96 07/13/20 07:00 Intake & Output 07/12/20 07/13/20 07/13/20 19:59 06:59 18:59 Intake Total Balance Weight Intake: Oral Other: Voiding Method # Voids 1 - Exam GENERAL EXAM: Alert, active, very pleasant 80-year-old gentleman, on room air, comfortable in no apparent distress. HEAD: Normocephalic. EYES: Normal reaction of pupil, prosthetic left eye. NOSE: Clear with pink turbinates. THROAT: No erythema or exudates. NECK: No masses, no JVD. CHEST: No chest wall deformity. LUNGS: Equal air entry with no crackles, wheeze, rhonchi or dullness. CVS: S1 and S2 normal with no audible murmur, regular rhythm. ABDOMEN: No hepatosplenomegaly, normal bowel sounds, no guarding or rigidity. SPINE: No scoliosis or deformity SKIN: No rashes CENTRAL NERVOUS SYSTEM: No focal deficits, tone is normal in all 4 extremities. EXTREMITIES: There is no peripheral edema. No clubbing, no cyanosis. Peripheral pulses are intact. - Labs CBC & Chem 7: 07/13/20 05:57 07/13/20 05:57 Labs: Abnormal Lab Results - Last 24 Hours (Table) 07/12/20 07/12/20 07/13/20 Range/Units 16:58 20:41 05:57 RBC 3.54 L (4.30-5.90) m/uL Hgb 12.1 L (13.0-17.5) gm/dL Hct 36.9 L (39.0-53.0) % MCV 104.0 H (80.0-100.0) fL Chloride (96-109) mmol/L Creatinine (0.6-1.5) mg/dL Est GFR (CKD-EPI)AfAm (60.0-200.0) Est GFR (CKD-EPI)NonAf (60.0-200.0) POC Glucose (mg/dL) 107 H 158 H (75-99) mg/dL Calcium (8.7-10.3) mg/dL 07/13/20 Range/Units 05:57 RBC (4.30-5.90) m/uL Hgb (13.0-17.5) gm/dL Hct (39.0-53.0) % MCV (80.0-100.0) fL Chloride 112 H (96-109) mmol/L Creatinine 1.7 H (0.6-1.5) mg/dL Est GFR (CKD-EPI)AfAm 42.6 L (60.0-200.0) Est GFR (CKD-EPI)NonAf 36.7 L (60.0-200.0) POC Glucose (mg/dL) (75-99) mg/dL Calcium 8.2 L (8.7-10.3) mg/dL Microbiology - Last 24 Hours (Table) 07/11/20 11:50 Blood Culture - Preliminary Blood No Growth after 24 hours Assessment and Plan Assessment: 1 Generalized malaise, myalgias, nausea of unclear etiology. CoVID 19 screen still pending 2 Diabetes mellitus 3 Hypertension 4 Hyperlipidemia 5 Hypothyroidism 6 History of depression 7 History of colon cancer status post resection 8 History of obstructive sleep apnea, no longer using CPAP Plan: The patient was seen and evaluated by Dr. Manan Chung from the pulmonary standpoint, on room air Covid 19 screen pending Cleared for discharge from the pulmonary standpoint I, the cosigning physician, performed a history & physical examination of the patient. Lungs sounds are clear. Maintaining good O2 saturations in the 90s on room air. I discussed the assessment and plan of care with my nurse practitioner, Alma Saeed. I attest to the above consultation as dictated by her.
[2020-07-13 16:05] VITALS: BP 156/74; PULSE 60; TEMP 98.2
[2020-07-13] MEDS: IBUPROFEN 400 MG TAB PO PRN (16:29)
[2020-07-16] MEDS ORDERED: ERGOCALCIFEROL 50,000 UNIT CAP PO SCH (09:00)
--- NOTE | 2020-07-29 21:42 | P.DS ---
Providers Date of admission: 07/11/20 13:35 Expected date of discharge: 07/13/20 Attending physician: Reilly Higginbotham Consults: 07/11/20 13:33 Consult Physician Routine Consulting Provider: Griffin Hinkle Consult Reason/Comments: atypical pneumonia, possible COVID Do you want consulting provider notified?: Yes Primary care physician: Reilly Higginbotham [facility] Hospital Course: Mr. Duncan is a very pleasant 80-year-old gentleman who follows with Dr. Higginbotham as his primary care provider. He has a history of depression, hypothyroidism, hypertension, diabetes mellitus, atrial fibrillation, hyperlipidemia, colon cancer with bowel resection, chronic renal failure, obstructive sleep apnea no longer on CPAP. Former smoker. He presented here to the emergency room yesterday with a 2 day history of nausea, body aches, weakness. He denies any CoVID 19 exposures. He had recently traveled to [place] and back. Chest x- ray revealed hazy appearance of lungs with interstitial opacities and possible Covid 19 viral infection versus atypical pneumonia. We are consulted for the same. He is seen today on the regular medical floor. He is awake and alert in no acute distress. Denies any shortness of breath, cough or congestion. No fever, chills or night sweats. Maintaining O2 saturations in the mid 90s on room air. He's afebrile. Hemodynamically stable. White count 7.8. Hemoglobin 12.2. Lymphocytes 1.7. INR 1.0. Sodium 142. Potassium 3.6. Creatinine 1.69. LDH 414. C-reactive protein 17.7. Calcitonin 0.07. He was initiated on ceftriaxone and azithromycin. Hospital course - patient was continued on the Abx and COVID -19 was pending. His symptoms improved and Pulmonary followed him and cleared him for discharge. DISCHARGE DIAGNOSIS Pneumonia-atypical pattern Covid 19 pending results Anemia Angina Asthma Atherosclerosis of the aorta Cerebro-vascular accident Diabetes type 2 Chronic kidney disease with GFR of 39-stage III Anxiety Degeneration of lumbar intervertebral disc Depressive disorder Hypertension Hyperlipidemia GERD Hypothyroidism Follow up - he is advised to complete his Abx course and to follow up with his PCP in 3-4 days for COVID -19 results. Patient Condition at Discharge: Stable Plan - Discharge Summary New Discharge Prescriptions: New Azithromycin [Zithromax] 250 mg PO DAILY 3 Days #3 tab Continue Sertraline [Zoloft] 100 mg PO BID QUEtiapine [SEROquel] 50 mg PO HS rOPINIRole HCL [Requip] 0.5 mg PO HS Primidone [Mysoline] 150 mg PO BID Albuterol Nebulized [Ventolin Nebulized] 2.5 mg INHALATION RT-TID Levothyroxine Sodium [Synthroid] 50 mcg PO QAM calcitrioL [Calcitriol] 0.25 mcg PO MOFR atenoloL [Tenormin] 25 mg PO QAM Gabapentin 600 mg PO BID Furosemide [Lasix] 40 mg PO DAILY Omeprazole [PriLOSEC] 40 mg PO AC-BRKFST #14 capsule. Ergocalciferol [Vitamin D2 (DRISDOL)] 50,000 unit PO WE lisinopriL [Zestril] 5 mg PO QAM Therabreath Dry Mouth 1 spray PO DAILY traZODone HCL [Desyrel] 50 mg PO HS Tamsulosin [Flomax] 0.4 mg PO BID Nitroglycerin Sl Tabs [Nitrostat] 0.4 mg SUBLINGUAL Q5M PRN PRN Reason: Chest Pain Insulin Glargine,Hum.rec.anlog [Lantus Solostar] 40 unit SQ HS Lactulose [Constulose] 20 gm PO TID-W/MEALS Rosuvastatin [Crestor] 20 mg PO DAILY Fluticasone Propionate 2 spray EA NOSTRIL DAILY Diclofenac Sodium Gel [Voltaren Gel] 2 gm TOPICAL QID Discharge Medication List Sertraline [Zoloft] 100 mg PO BID 02/18/16 [History] QUEtiapine [SEROquel] 50 mg PO HS 08/09/16 [History] rOPINIRole HCL [Requip] 0.5 mg PO HS 08/20/16 [History] Primidone [Mysoline] 150 mg PO BID 10/27/17 [History] Albuterol Nebulized [Ventolin Nebulized] 2.5 mg INHALATION RT-TID 12/11/18 [History] Levothyroxine Sodium [Synthroid] 50 mcg PO QAM 12/11/18 [History] atenoloL [Tenormin] 25 mg PO QAM 12/11/18 [History] calcitrioL [Calcitriol] 0.25 mcg PO MOFR 12/11/18 [History] Furosemide [Lasix] 40 mg PO DAILY 12/15/18 [History] Gabapentin 600 mg PO BID 12/15/18 [History] Omeprazole [PriLOSEC] 40 mg PO CHITRA-MILTONKFSJunior #14 capsule. 02/09/19 [Rx] Ergocalciferol [Vitamin D2 (DRISDOL)] 50,000 unit PO WE 04/17/19 [History] lisinopriL [Zestril] 5 mg PO QAM 04/17/19 [History] Therabreath Dry Mouth 1 spray PO DAILY 06/22/19 [History] Diclofenac Sodium Gel [Voltaren Gel] 2 gm TOPICAL QID 07/11/20 [History] Fluticasone Propionate 2 spray EA NOSTRIL DAILY 07/11/20 [History] Insulin Glargine,Hum.rec.anlog [Lantus Solostar] 40 unit SQ HS 07/11/20 [His tory] Lactulose [Constulose] 20 gm PO TID-W/MEALS 07/11/20 [History] Nitroglycerin Sl Tabs [Nitrostat] 0.4 mg SUBLINGUAL Q5M PRN 07/11/20 [History] Rosuvastatin [Crestor] 20 mg PO DAILY 07/11/20 [History] Tamsulosin [Flomax] 0.4 mg PO BID 07/11/20 [History] traZODone HCL [Desyrel] 50 mg PO HS 07/11/20 [History] Azithromycin [Zithromax] 250 mg PO DAILY 3 Days #3 tab 07/13/20 [Rx] Follow up Appointment(s)/Referral(s): Reilly Higginbotham MD [Primary Care Provider] - 1-2 days Discharge Disposition: HOME SELF-CARE
== END 2020-07-13 16:50 | disposition home or self-care (01) | DRG 195 ==
LOC: EC 10:32 → 4SSUR 13:35
PROVIDERS: ADMIT Family Medicine; ATTEND Family Medicine
DX: J18.9 Pneumonia, unspecified organism (principal); I20.9 Angina pectoris, unspecified; I48.91 Unspecified atrial fibrillation; I70.0 Atherosclerosis of aorta; J45.909 Unspecified asthma, uncomplicated; K21.9 Gastro-esophageal reflux disease without esophagitis; M51.36 Other intervertebral disc degeneration, lumbar region; Z20.828 Contact with and (suspected) exposure to other viral communicable diseases; G89.29 Other chronic pain; N18.30 Chronic kidney disease, stage 3 unspecified; D64.9 Anemia, unspecified; E03.9 Hypothyroidism, unspecified; E11.22 Type 2 diabetes mellitus with diabetic chronic kidney disease; E78.5 Hyperlipidemia, unspecified; E11.40 Type 2 diabetes mellitus with diabetic neuropathy, unspecified; Z79.4 Long term (current) use of insulin; F32.9 Major depressive disorder, single episode, unspecified; F41.9 Anxiety disorder, unspecified; G25.81 Restless legs syndrome; I12.9 Hypertensive chronic kidney disease with stage 1 through stage 4 chronic kidney disease, or unspecified chronic kidney disease; Z86.73 Personal history of transient ischemic attack (TIA), and cerebral infarction without residual deficits; N40.0 Benign prostatic hyperplasia without lower urinary tract symptoms; Z90.79 Acquired absence of other genital organ(s); G47.33 Obstructive sleep apnea (adult) (pediatric); Z79.890 Hormone replacement therapy; Z79.899 Other long term (current) drug therapy; Z80.8 Family history of malignant neoplasm of other organs or systems; Z82.49 Family history of ischemic heart disease and other diseases of the circulatory system; Z85.038 Personal history of other malignant neoplasm of large intestine; Z87.891 Personal history of nicotine dependence; Z97.0 Presence of artificial eye; Z96.651 Presence of right artificial knee joint; Z98.41 Cataract extraction status, right eye; Z96.1 Presence of intraocular lens; I44.7 Left bundle-branch block, unspecified; K57.90 Diverticulosis of intestine, part unspecified, without perforation or abscess without bleeding; Z90.49 Acquired absence of other specified parts of digestive tract; G20 Parkinson's disease; K44.9 Diaphragmatic hernia without obstruction or gangrene
CPT/HCPCS: 36415; 71045; 80048; 80053; 82728; 83605; 83615; 83735; 84145; 84484; 85025; 85610; 85730; 86140; 87040; 93005; 94640; 96361; 96365; 96367; 96375; 99285

== ENCOUNTER → 2020-08-06 | Outpatient (CLI) | payer MEDICARE ==
[2020-08-06 07:49] LABS: Appearance,Urine Clear (Clear); Bilirubin,Urine Negative (Negative); Blood,Urine Negative (Negative); Color,Urine Colorless; Glucose,Urine (UA) Negative (Negative); Ketones,Urine Negative (Negative); Leukocyte Esterase,Urine Negative (Negative); Nitrite,Urine Negative (Negative); PH, Urine 5.5 (5.0-8.0); Protein,Urine Negative (Negative); Specific Gravity,Urine 1.005 (1.001-1.035); Urobilinogen,Urine <2.0 mg/dL (<2.0)
--- NOTE | 2020-08-06 07:55 | US ---
EXAMINATION TYPE: US kidneys/renal and bladder DATE OF EXAM: 08/06/2020 COMPARISON: US CLINICAL HISTORY: N18.3 chronic kidney diease stage 3. EXAM MEASUREMENTS: Right Kidney: 10.2 x 4.6 x 4.5 cm Left Kidney: 10.2 x 4.4 x 5.7 cm Thinned cortex bilaterally. Right Kidney: No hydronephrosis or masses seen Left Kidney: No hydronephrosis or masses seen Bladder: wnl Bilateral Jets seen: Yes There is no evidence for hydronephrosis at this point in time. No nephrolithiasis is seen. No melvina s are identified. The urinary bladder is anechoic. Bilateral ureteral jets are seen. IMPRESSION: No distinct abnormality appreciated.
== END | disposition home or self-care (01) ==
LOC: RADUSWWP 07:15
PROVIDERS: ATTEND Nurse Practitioner Family
DX: N18.30 Chronic kidney disease, stage 3 unspecified (principal)
CPT/HCPCS: 76770; 81003; 87086

== ENCOUNTER → 2020-08-11 | Outpatient (CLI) | payer MEDICARE ==
--- NOTE | 2020-08-11 15:33 | XR ---
EXAMINATION TYPE: XR lumbar spine 2 or 3V DATE OF EXAM: 08/11/2020 COMPARISON: 11/02/2017 HISTORY: Lumbar surgery, fall pain TECHNIQUE: Three-view lumbar spine FINDINGS: Prior lumbar surgery L3-L5 is evident. Degenerative disc changes are present L1-2 L2-3 with chronic changes L3-4 L4-5. Disc space narrowing T12-L1 is present. Large spur transverses the L1-2 l evel. Kyphosis at the thoracolumbar junction is noted. IMPRESSION: 1. No acute osseous abnormality. 2. Postsurgical changes L3-L5. 3. Degenerative disc changes diffusely throughout the lumbar spine
== END | disposition home or self-care (01) ==
LOC: RADXRWHC 14:51
PROVIDERS: ATTEND Nurse Practitioner
DX: M47.816 Spondylosis without myelopathy or radiculopathy, lumbar region (principal); Z98.890 Other specified postprocedural states
CPT/HCPCS: 72100

== ENCOUNTER 2020-08-20 14:52 | Emergency (ER) | payer MEDICARE ==
[2020-08-20 15:02] VITALS: TEMP 98.6
[2020-08-20 16:47] LABS: Basophils # (A) 0.1 k/uL (0-0.2); Basophils % (A) 1 %; Eosinophils # (A) 0.4 k/uL (0-0.7); Eosinophils % (A) 5 %; HGB 12.8 gm/dL (13.0-17.5); Lymphocytes # (A) 1.9 k/uL (1.0-4.8); Lymphocytes % (A) 26 %; MCHC 34.7 g/dL (31.0-37.0); Mean Platelet Volume 9.2; Monocytes # (A) 0.4 k/uL (0-1.0); Monocytes % (A) 5 %; Neutrophils # (A) 4.7 k/uL (1.3-7.7); Neutrophils % (A) 62 %; Platelet Count 165 k/uL (150-450); RBC 3.77 m/uL (4.30-5.90); RDW 13.2 % (11.5-15.5); WBC 7.5 k/uL (3.8-10.6)
[2020-08-20 16:56] LABS: Partial Thromboplastin Time 38.1 sec (22.0-30.0); Prothrombin Time 10.6 sec (9.0-12.0)
[2020-08-20 16:58] LABS: MCV 98.1 fL (80.0-100.0)
[2020-08-20 17:12] LABS: Albumin 4.3 g/dL (3.5-5.0); Calcium 8.8 mg/dL (8.4-10.2); Magnesium 2.4 mg/dL (1.6-2.3); Potassium 4.7 mmol/L (3.5-5.1); Total Bilirubin 0.4 mg/dL (0.2-1.3); Total Protein 7.2 g/dL (6.3-8.2)
--- NOTE | 2020-08-20 17:33 | XR ---
EXAMINATION TYPE: XR chest 2V DATE OF EXAM: 08/20/2020 COMPARISON: 03/01/2019 HISTORY: Chest pain TECHNIQUE: FINDINGS: There is poor inspiration. There is minimal subsegmental atelectasis at the lung bases. Hea rt size is normal. There is no heart failure. Thoracic aorta is atheromatous. There are no hilar mass es. IMPRESSION: Minimal subsegmental atelectasis at the lung bases unchanged. Normal heart.
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
[2020-08-20 17:59] VITALS: BP 133/80; PULSE 59; RESP 16
== END 2020-08-20 18:03 | disposition home or self-care (01) ==
LOC: EC 14:52
DX: I44.7 Left bundle-branch block, unspecified (principal); I12.9 Hypertensive chronic kidney disease with stage 1 through stage 4 chronic kidney disease, or unspecified chronic kidney disease; E11.22 Type 2 diabetes mellitus with diabetic chronic kidney disease; N18.9 Chronic kidney disease, unspecified; E03.9 Hypothyroidism, unspecified; G43.909 Migraine, unspecified, not intractable, without status migrainosus; E78.5 Hyperlipidemia, unspecified; G47.33 Obstructive sleep apnea (adult) (pediatric); G25.81 Restless legs syndrome; N40.0 Benign prostatic hyperplasia without lower urinary tract symptoms; F41.9 Anxiety disorder, unspecified; F32.9 Major depressive disorder, single episode, unspecified; Z79.51 Long term (current) use of inhaled steroids; Z79.899 Other long term (current) drug therapy; Z79.890 Hormone replacement therapy; Z79.4 Long term (current) use of insulin; Z85.038 Personal history of other malignant neoplasm of large intestine; Z87.891 Personal history of nicotine dependence; Z99.89 Dependence on other enabling machines and devices; Z96.651 Presence of right artificial knee joint
CPT/HCPCS: 36415; 71046; 80053; 83735; 83880; 84484; 85025; 85610; 85730; 93005; 99285

== ENCOUNTER → 2020-10-03 | Outpatient (CLI) | payer MEDICARE ==
--- NOTE | 2020-10-03 15:13 | CT ---
EXAMINATION TYPE: CT abdomen pelvis wo con DATE OF EXAM: 10/03/2020 HISTORY: Unspecified abdominal pain CT DLP: 682.3 mGycm. Automated Exposure Control for Dose Reduction was Utilized. TECHNIQUE: CT scan of the abdomen and pelvis is performed with oral but without IV contrast. COMPARISON: CT abdomen and pelvis December 10, 2015 FINDINGS: Within the limitations of a non-contrast study, the following observations are made. LUNG BASES: At least moderate three-vessel coronary artery calcification redemonstrated. LIVER/GB: No significant abnormality is appreciated. PANCREAS: Mild to moderate generalized fat replaced atrophy redemonstrated. SPLEEN: No significant abnormality is seen. ADRENALS: No significant abnormality is seen. KIDNEYS: Cortical thinning in both kidneys again seen. BOWEL: Oral contrast reaches level of the sigmoid colon. No suspicious small or large bowel dilatatio n. Diverticulosis in the proximal to mid sigmoid colon. No CT evidence for acute diverticulitis. GENITAL ORGANS: Prostate gland upper limits of normal in size. LYMPH NODES: No greater than 1cm abdominal or pelvic lymph nodes are appreciated. OSSEOUS STRUCTURES: Osseous structures are demineralized. Postsurgical change L3-L5 levels now presen t. Straightened alignment seen. Severe disc space narrowing L2-L3 level remains present. Moderate dis c space narrowing L1-L2 level with severe anterior spurring and sclerosis is now identified. Narrowin g and spurring of both sacroiliac joints. OTHER: Small fat-containing right inguinal hernia redemonstrated. Mild/moderate calcified plaque of t he abdominal aorta extends into branch vessels. IMPRESSION: No new or acute findings identified on this study to account for patient's symptoms of no nspecific pain.
== END | disposition home or self-care (01) ==
LOC: RADCTMAIN 12:07
PROVIDERS: ATTEND Family Medicine
DX: R10.9 Unspecified abdominal pain (principal)
CPT/HCPCS: 74176

== ENCOUNTER 2020-12-05 15:51 | Emergency (ER) | payer MEDICARE ==
[2020-12-05 15:59] VITALS: PULSE 89; RESP 16; TEMP 98.5
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
[2020-12-05 16:46] VITALS: BP 155/93
== END 2020-12-05 17:04 | disposition home or self-care (01) ==
LOC: EC 15:51
DX: R03.0 Elevated blood-pressure reading, without diagnosis of hypertension (principal); F41.9 Anxiety disorder, unspecified; F32.9 Major depressive disorder, single episode, unspecified; I48.91 Unspecified atrial fibrillation; K21.9 Gastro-esophageal reflux disease without esophagitis; E78.5 Hyperlipidemia, unspecified; M19.90 Unspecified osteoarthritis, unspecified site; E11.42 Type 2 diabetes mellitus with diabetic polyneuropathy; I12.9 Hypertensive chronic kidney disease with stage 1 through stage 4 chronic kidney disease, or unspecified chronic kidney disease; N18.9 Chronic kidney disease, unspecified; E03.9 Hypothyroidism, unspecified; N40.0 Benign prostatic hyperplasia without lower urinary tract symptoms; G89.29 Other chronic pain; M54.9 Dorsalgia, unspecified; G25.81 Restless legs syndrome; Z79.890 Hormone replacement therapy; Z79.899 Other long term (current) drug therapy; Z79.4 Long term (current) use of insulin; Z82.49 Family history of ischemic heart disease and other diseases of the circulatory system; Z95.5 Presence of coronary angioplasty implant and graft; Z96.651 Presence of right artificial knee joint; Z87.891 Personal history of nicotine dependence
CPT/HCPCS: 99283

== ENCOUNTER 2021-01-28 07:51 | Day surgery (SDC) | payer MEDICARE ==
[~2021-01-28 07:51] MED LIST changes: -LIDOCAINE 1% 20 ML VIAL (10MG/ML) FOR IV START INTRADERMA PRN
[2021-01-28 08:31] VITALS: RESP 16; TEMP 98.1
[2021-01-28] MEDS ORDERED: PROPOFOL 10 MG/ML 20 ML VIAL IV ONE (08:43)
[2021-01-28 08:46] LABS: Glucose,Whole Blood 101 mg/dL (75-99)
--- NOTE | 2021-01-28 09:00 | P.PCN ---
Date of Procedure: 01/28/21 Procedure(s) Performed: BRIEF HISTORY: Patient is a 80-year-old pleasant male scheduled for an elective colonoscopy as a part of evaluation of prior history of colon polyps and change in bowel habits. His been having intermittent chronic diarrhea for the last few months duration. His weight loss of about 10 pounds. PROCEDURE PERFORMED: Colonoscopy with random biopsies. PREOPERATIVE DIAGNOSIS: History of colon polyps/chronic diarrhea centimeter. IV sedation per Anesthesia. PROCEDURE: After informed consent was obtained, the patient, was brought into the endoscopy unit. IV sedation was administered by Anesthesia under continuous monitoring. Digital rectal examination was normal. Initially the Olympus CF-160 flexible video colonoscope was then inserted in the rectum, gradually advanced into the right colon with ileocolic anastomosis was identified which appeared normal. Mucosa of the ascending colon, transverse colon, descending colon, sigmoid colon, and rectum appeared normal. Random biopsies were done from ascending and descending colon to rule out microscopic/collagenous colitis. Scattered sigmoid diverticulosis seen. Retroflexion was performed in the rectum and no lesions were seen. The patient tolerated the procedure well. IMPRESSION: Normal-appearing colon from rectum to the right colon With no evidence of colitis or colorectal neoplasia Scattered left-sided diverticulosis Normal ileocolic anastomosis RECOMMENDATIONS: Findings of this examination were discussed with the patient as well as his family. He was advised to follow with the biopsy results. He can use [id number] Imodium as needed for the diarrhea..
[2021-01-28 09:19] VITALS: BP 152/72; PULSE 56
== END 2021-01-28 09:41 | disposition home or self-care (01) ==
LOC: ORWHC2ENDO 07:51
PROVIDERS: ATTEND Internal Medicine Gastroenterology
DX: R19.7 Diarrhea, unspecified (principal); K57.90 Diverticulosis of intestine, part unspecified, without perforation or abscess without bleeding; Z86.010 Personal history of colon polyps; E11.9 Type 2 diabetes mellitus without complications; E78.5 Hyperlipidemia, unspecified; E03.9 Hypothyroidism, unspecified; I10 Essential (primary) hypertension; Z79.4 Long term (current) use of insulin; Z79.899 Other long term (current) drug therapy; N40.0 Benign prostatic hyperplasia without lower urinary tract symptoms
CPT/HCPCS: 88305; 45380; J2704

== ENCOUNTER 2021-05-15 11:39 | Observation (INO) | payer MEDICARE ==
[2021-05-15] MEDS ORDERED: SODIUM CHLORIDE 0.9% 1,000 ML IV STA (13:16)
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
[2021-05-15 13:49] LABS: Basophils # (A) 0.1 k/uL (0-0.2); Basophils % (A) 1 %; Eosinophils # (A) 0.4 k/uL (0-0.7); Eosinophils % (A) 5 %; HCT 40.8 % (39.0-53.0); HGB 13.7 gm/dL (13.0-17.5); Lymphocytes % (A) 23 %; MCH 34.9 pg (25.0-35.0); MCHC 33.6 g/dL (31.0-37.0); MCV 103.9 fL (80.0-100.0); Macrocytosis Slight; Mean Platelet Volume 9.3; Monocytes # (A) 0.3 k/uL (0-1.0); Monocytes % (A) 4 %; Neutrophils # (A) 5.8 k/uL (1.3-7.7); Neutrophils % (A) 67 %; Platelet Count 211 k/uL (150-450); RBC 3.92 m/uL (4.30-5.90); RDW 14.2 % (11.5-15.5); WBC 8.7 k/uL (3.8-10.6)
[2021-05-15 13:53] LABS: Appearance,Urine Clear (Clear); Bilirubin,Urine Negative (Negative); Blood,Urine Trace (Negative); Color,Urine Light Yellow; Glucose,Urine (UA) Negative (Negative); Ketones,Urine Negative (Negative); Leukocyte Esterase,Urine Negative (Negative); Mucus,Urine Rare /hpf; Nitrite,Urine Negative (Negative); PH, Urine 5.5 (5.0-8.0); Protein,Urine 1+ (Negative); RBC,Urine <1 /hpf (0-5); Specific Gravity,Urine 1.013 (1.001-1.035); Squamous Epithelial Cell,Urine <1 /hpf (0-4); Urobilinogen,Urine <2.0 mg/dL (<2.0); WBC,Urine 1 /hpf (0-5)
[2021-05-15 13:59] LABS: Albumin 4.7 g/dL (3.5-5.0); Calcium 8.9 mg/dL (8.4-10.2); INR 0.9 (<1.2); Magnesium 2.4 mg/dL (1.6-2.3); Partial Thromboplastin Time 35.3 sec (22.0-30.0); Potassium 4.4 mmol/L (3.5-5.1); Prothrombin Time 10.1 sec (9.0-12.0); Total Bilirubin 0.2 mg/dL (0.2-1.3); Total Protein 7.3 g/dL (6.3-8.2)
--- NOTE | 2021-05-15 14:41 | CT ---
EXAMINATION TYPE: CT abdomen pelvis wo con DATE OF EXAM: 05/15/2021 COMPARISON: 10/03/2020 HISTORY: Abd pain, diarrhea CT DLP: 706.3 mGycm Examination of the solid and hollow viscera is limited given the lack of contrast. FINDINGS: LUNG BASES: No evidence for nodule. No evidence for infiltrate. There is evidence of cardiomegaly. LIVER/GB: The gallbladder is unremarkable. No space-occupying hepatic lesion. PANCREAS: No pancreatic mass identified. No inflammatory process seen. SPLEEN: No evidence for splenomegaly. No intrasplenic lesions seen. ADRENALS: No adrenal nodules identified. No evidence for thickening. KIDNEYS: No evidence for renal mass. No nephrolithiasis. No hydronephrosis. BOWEL: Partial right hemicolectomy. Sigmoid diverticulosis without diverticulitis. No evidence of bow el obstruction. No inflammatory process. Lymph nodes: No evidence for adenopathy greater than 1 cm. Abdominal aorta: Atheromatous changes seen. No evidence for aneurysm. Genital organs: No significant abnormality. Other: No significant abnormality. IMPRESSION: No significant abnormality identified to account for the patient's symptoms.
--- NOTE | 2021-05-15 15:11 | XR ---
EXAMINATION TYPE: XR chest 2V DATE OF EXAM: 05/15/2021 COMPARISON: 08/20/2020 HISTORY: Shortness of breath TECHNIQUE: Frontal and lateral views of the chest are obtained. FINDINGS: Scattered senescent parenchymal changes noted. Hyperinflation compatible with COPD. No evidence for infiltrate. No evidence for atelectasis. Heart size is stable. Mediastinal structures are stable and grossly unremarkable. No evidence for hilar prominence. Degenerative changes dorsal spine. IMPRESSION: 1. No evidence for acute pulmonary disease.
[2021-05-15] MEDS ORDERED: NALOXONE 0.4 MG/ML 1 ML VIAL IV PRN (15:18)
[2021-05-15] MEDS ORDERED: ASPIRIN 81 MG PO STA (15:19)
[2021-05-15] MEDS ORDERED: FLUTICASONE 50MCG/SPRAY NASAL 16GM EA NOSTRIL PRN (15:42)
[2021-05-15] MEDS: SODIUM CHLORIDE 0.9% 1,000 ML IV SCH (16:52)
[2021-05-15] MEDS: INSULIN ASPART (NovoLOG) 100 UNIT/ML VIAL SQ SCH ×2 (16:56→21:26)
[2021-05-15 17:06] LABS: Glucose,Whole Blood 106 mg/dL (75-99)
[2021-05-15] MEDS: TAMSULOSIN 0.4 MG CAP.ER.24H PO SCH ×2 (17:19→21:23)
[2021-05-15] MEDS: CHOLECALCIFEROL 25 MCG (1000 IU) TABLET PO SCH ×2 (17:19→21:22)
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
[2021-05-15 20:57] LABS: Glucose,Whole Blood 130 mg/dL (75-99)
[2021-05-15] MEDS ORDERED: TIME SLEEP AID PO SCH (21:00)
[2021-05-15] MEDS ORDERED: TEMAZEPAM 15 MG CAP PO SCH (21:00)
[2021-05-15] MEDS ORDERED: ATORVASTATIN 40 MG TAB PO SCH (21:00)
[2021-05-15] MEDS: GABAPENTIN 300 MG CAP PO SCH (21:22)
[2021-05-15] MEDS: SERTRALINE 100 MG TAB PO SCH (21:22)
[2021-05-15] MEDS: PRIMIDONE 50 MG TAB PO SCH (21:22)
[2021-05-15] MEDS: HEPARIN SODIUM,PORCINE/PF 5,000 UNIT/0.5 ML SYRINGE SQ SCH (21:23)
[2021-05-15] MEDS: oxyCODONE-APAP 7.5-325MG 1 EACH TAB PO SCH (21:23)
[2021-05-15] MEDS ORDERED: MELATONIN 5 MG TABLET PO PRN (22:05)
[2021-05-16] MEDS: SODIUM CHLORIDE 0.9% 1,000 ML IV SCH (05:02)
[2021-05-16] MEDS ORDERED: LEVOTHYROXINE 50 MCG TAB PO SCH (06:30)
[2021-05-16 07:24] LABS: Glucose,Whole Blood 97 mg/dL (75-99)
[2021-05-16] MEDS ORDERED: PANTOPRAZOLE 40 MG TABLET PO SCH (07:30)
[2021-05-16 07:39] LABS: Glucose,Whole Blood 96 mg/dL (75-99)
[2021-05-16 07:46] VITALS: BP 149/79; PULSE 55; RESP 14; TEMP 98
[2021-05-16] MEDS: INSULIN ASPART (NovoLOG) 100 UNIT/ML VIAL SQ SCH ×2 (07:56→13:12)
[2021-05-16] MEDS: oxyCODONE-APAP 7.5-325MG 1 EACH TAB PO SCH (08:50)
[2021-05-16] MEDS: GABAPENTIN 300 MG CAP PO SCH (08:50)
[2021-05-16] MEDS: CHOLECALCIFEROL 25 MCG (1000 IU) TABLET PO SCH (08:50)
[2021-05-16] MEDS: HEPARIN SODIUM,PORCINE/PF 5,000 UNIT/0.5 ML SYRINGE SQ SCH (08:50)
[2021-05-16] MEDS: SERTRALINE 100 MG TAB PO SCH (08:51)
[2021-05-16] MEDS: PRIMIDONE 50 MG TAB PO SCH (08:51)
[2021-05-16] MEDS: TAMSULOSIN 0.4 MG CAP.ER.24H PO SCH (08:51)
[2021-05-16] MEDS ORDERED: amLODIPine 5 MG TAB PO SCH (09:00)
[2021-05-16] MEDS ORDERED: diphenhydrAMINE 25 MG CAP PO SCH (09:00)
[2021-05-16] MEDS ORDERED: atenoloL 25 MG TAB PO SCH (09:00)
[2021-05-16] MEDS ORDERED: MULTIVITAMINS, THERA 1 EACH TAB PO SCH (09:00)
[2021-05-16] MEDS ORDERED: ASPIRIN 325 MG TAB PO SCH (09:00)
[2021-05-16] MEDS ORDERED: FUROSEMIDE 20 MG TAB PO SCH (09:00)
[2021-05-16] MEDS ORDERED: lisinopriL 5 MG TAB PO SCH (09:00)
[2021-05-16] MEDS ORDERED: FUROSEMIDE 40 MG TAB PO SCH (09:00)
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
[2021-05-16] MEDS ORDERED: ACETAMINOPHEN TAB 325 MG TAB PO STA (11:06)
[2021-05-16 12:19] LABS: Glucose,Whole Blood 183 mg/dL (75-99)
[2021-05-16 13:39] LABS: Chol/HDL Ratio 4.96; LDL Cholesterol,Calculated 46.6 mg/dL (0.0-131.0); VLDL Calculation 52.4 mg/dL (5.00-40.00)
--- NOTE | 2021-05-16 16:04 | DS ---
DISCHARGE SUMMARY FINAL DIAGNOSES: 1. Chest pain, myocardial infarction ruled out. 2. Paroxysmal atrial fibrillation. 3. Melena. 4. Hypertension. 5. Hyperlipidemia. 6. Chronic kidney stage 3. 7. History of atrial fibrillation. 8. Diabetes mellitus type 2. 9. Gastroesophageal reflux disease. 10.Hyperlipidemia. 11.History of degenerative joint disease. 12.History of prostate disorder. 13.History of Covid vaccination recently. 14.History of back surgery, degenerative joint disease. 15.History of bowel resection. 16.History of anxiety, depression. 17.Remote history of nicotine dependence. 18.FULL CODE. DISCHARGE DISPOSITION: The patient will be discharged in stable condition with guarded prognosis. HISTORY OF PRESENT ILLNESS: This 81-year-old gentleman with a past medical history of multiple medical problems admitted with melena and some chest pains. Cardiology saw the patient, recommended outpatient followup. Hemoglobin 13.7, creatinine is 1.7. Recommended outpatient labs. On exam, vitals signs stable. Cardiovascular S1, S2. Abdomen soft. Nervous system: No focal deficits. DISCHARGE ADVICE AND MEDICATIONS: 1. Diet is cardiac diet. 2. Activity limited until followup. 3. Follow up with Dr. Higginbotham in 2-3 days. 4. CBC/BMP. 5. Follow up with Cardiology as recommended. 6. Follow up with Dr. Laura Benedict for possible EGD as an outpatient. Patient had a colonoscopy. 7. Ecotrin 81 mg daily, hold if bleeding. 8. Calcitriol 0.5 mg p.o. Tuesday. 9. Crestor 20 mg q.h.s. 10.Flomax 0.5 t.i.d. 11.Fluticasone. 12.Gabapentin 600 mg b.i.d. 13.Kenalog daily. 14.Insulin 30 units subcu daily. 15.Lasix 40 mg p.o. daily. 16.Melatonin 20 mg q.h.s. 17.Mysoline 150 mg p.o. b.i.d. 18.Nitrostat 0.4 mg p.r.n. 19.Norvasc 5 mg p.o. daily. 20.Percocet 1 tablet p.o. b.i.d. 21.Requip 0.5 mg q.h.s. 22.Levothyroxine 50 mcg p.o. daily. 23.Tenormin 25 mg p.o. daily. 24.Vitamin D2 1250 mcg p.o. daily. 25.Vitamin D3 25 mg p.o. t.i.d. 26.Zestril 5 mg p.o. daily. 27.Zoloft 100 mg b.i.d. 28.Prilosec 40 mg with breakfast. Hold aspirin until the investigations are completed and bleeding is completely ruled out. Once again, the patient will be discharged in stable condition with guarded prognosis. MMJOSE ROBERTO / ANDREN: [id number] /
[2021-05-22] MEDS ORDERED: ERGOCALCIFEROL 1,250 MCG (50,000 IU) CAPSULE PO SCH (09:00)
--- NOTE | 2021-05-28 08:46 | ECHOF ---
Referral Reason:chest pain MEASUREMENTS -------- HEIGHT: 162.6 cm WEIGHT: 78.9 kg BP: IVSd: 1.5 cm (0.6 - 1.1) LVIDd: 4.0 cm (3.9 - 5.3) LVPWd: 1.2 cm (0.6 - 1.1) IVSs: 1.7 cm LVIDs: 2.8 cm LVPWs: 1.5 cm LA Diam: 4.3 cm (2.7 - 3.8) Ao Diam: 3.1 cm (2.0 - 3.7) AV Cusp: 1.4 cm (1.5 - 2.6) MV EXCURSION: 24.642 mm (> 18.000) MV EF SLOPE: 98 mm/s (70 - 150) EPSS: 0.4 cm MV E Burton: 0.73 m/s MV DecT: 240 ms MV A Burton: 0.95 m/s MV E/A Ratio: 0.77 RAP: 5.00 mmHg RVSP: 12.99 mmHg FINDINGS -------- Sinus rhythm. This was a technically adequate study. The left ventricular size is normal. There is moderate concentric left ventricular hypertrophy. O verall left ventricular systolic function is low-normal with, an EF between 50 - 55 %. The right ventricle is normal in size. The left atrium is mildly dilated. The right atrial size is normal. There is mild aortic valve sclerosis. There is no evidence of aortic regurgitation. Mild mitral annular calcification present. Mild mitral regurgitation is present. Mild tricuspid regurgitation present. Right ventricular systolic pressure is normal at < 35 mmHg. The pulmonic valve was not well visualized. Echo free space represents a pericardial fat pad. CONCLUSIONS -------- 1. The left ventricular size is normal. 2. There is moderate concentric left ventricular hypertrophy. 3. Overall left ventricular systolic function is low-normal with, an EF between 50 - 55 %. 4. The right ventricle is normal in size. 5. The left atrium is mildly dilated. 6. The right atrial size is normal. 7. There is mild aortic valve sclerosis. 8. Mild mitral annular calcification present. 9. Mild mitral regurgitation is present. 10. Mild tricuspid regurgitation present. 11. The pulmonic valve was not well visualized. 12. Echo free space represents a pericardial fat pad. S3B MULTI SENSOR OPERATOR: Ely Solis RDCS
== END 2021-05-16 14:00 | disposition home or self-care (01) ==
LOC: EC 11:39 → 6NMEDSUR 15:36
PROVIDERS: ADMIT Family Medicine; ATTEND Family Medicine
DX: R07.89 Other chest pain (principal); I48.0 Paroxysmal atrial fibrillation; K92.1 Melena; R11.2 Nausea with vomiting, unspecified; R19.7 Diarrhea, unspecified; I12.9 Hypertensive chronic kidney disease with stage 1 through stage 4 chronic kidney disease, or unspecified chronic kidney disease; N18.30 Chronic kidney disease, stage 3 unspecified; E78.5 Hyperlipidemia, unspecified; E11.22 Type 2 diabetes mellitus with diabetic chronic kidney disease; K21.9 Gastro-esophageal reflux disease without esophagitis; I44.7 Left bundle-branch block, unspecified; M19.90 Unspecified osteoarthritis, unspecified site; N42.9 Disorder of prostate, unspecified; F41.9 Anxiety disorder, unspecified; F32.9 Major depressive disorder, single episode, unspecified; E03.9 Hypothyroidism, unspecified; K44.9 Diaphragmatic hernia without obstruction or gangrene; K57.90 Diverticulosis of intestine, part unspecified, without perforation or abscess without bleeding; H57.9 Unspecified disorder of eye and adnexa; G89.29 Other chronic pain; Z79.890 Hormone replacement therapy; Z79.899 Other long term (current) drug therapy; Z79.82 Long term (current) use of aspirin; Z79.4 Long term (current) use of insulin; G62.9 Polyneuropathy, unspecified; Z98.1 Arthrodesis status; Z96.1 Presence of intraocular lens; Z85.038 Personal history of other malignant neoplasm of large intestine; Z98.41 Cataract extraction status, right eye; Z97.0 Presence of artificial eye; Z90.49 Acquired absence of other specified parts of digestive tract; Z87.891 Personal history of nicotine dependence; Z96.651 Presence of right artificial knee joint; Z82.49 Family history of ischemic heart disease and other diseases of the circulatory system; Z80.8 Family history of malignant neoplasm of other organs or systems; Z83.42 Family history of familial hypercholesterolemia
CPT/HCPCS: 99285; 96361 ×2; 96372 ×2; 96360; 36415; 93005; 93306; 80061; 80053; 83605; 83735; 84484; 85025; 85610; 85730; 82272; 81001; 71046; 74176; G0378 ×2; J1644 ×2

== ENCOUNTER 2021-05-23 23:32 | Emergency (ER) | payer MEDICARE ==
[2021-05-23 23:49] VITALS: RESP 18
[2021-05-23] MEDS ORDERED: MAG HYDROX/AL HYDROX/SIMETH 30 ML, HYOSCYAMINE ELIXIR 10 ML, LIDOCAINE VISCOUS 2% 10 ML PO STA ×3 (23:54)
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
[2021-05-24 00:05] LABS: Basophils # (A) 0.1 k/uL (0-0.2); Basophils % (A) 1 %; Eosinophils # (A) 0.5 k/uL (0-0.7); Eosinophils % (A) 5 %; HCT 35.6 % (39.0-53.0); HGB 12.8 gm/dL (13.0-17.5); Lymphocytes # (A) 2.5 k/uL (1.0-4.8); Lymphocytes % (A) 27 %; MCH 36.7 pg (25.0-35.0); MCHC 35.9 g/dL (31.0-37.0); MCV 102.2 fL (80.0-100.0); Macrocytosis Slight; Monocytes # (A) 0.4 k/uL (0-1.0); Monocytes % (A) 4 %; Neutrophils # (A) 5.5 k/uL (1.3-7.7); Neutrophils % (A) 61 %; Platelet Count 191 k/uL (150-450); RBC 3.49 m/uL (4.30-5.90); RDW 13.7 % (11.5-15.5)
[2021-05-24 00:14] LABS: INR 0.9 (<1.2); Prothrombin Time 10.1 sec (9.0-12.0)
[2021-05-24 00:20] LABS: Albumin 4.3 g/dL (3.5-5.0); Calcium 8.5 mg/dL (8.4-10.2); Magnesium 2.5 mg/dL (1.6-2.3); Potassium 4.3 mmol/L (3.5-5.1); Total Bilirubin 0.4 mg/dL (0.2-1.3); Total Protein 7.2 g/dL (6.3-8.2)
--- NOTE | 2021-05-24 00:28 | XR ---
EXAMINATION TYPE: XR chest 2V DATE OF EXAM: 05/24/2021 COMPARISON: 05/15/2021 HISTORY: Chest pain TECHNIQUE: 2 views FINDINGS: There is some coarse linear interstitial density in the mid and lower lung raphael. There is no heart failure. There are no hilar masses. There is no pleural effusion. IMPRESSION: Increased interstitial density and subsegmental atelectasis compared to old exam. No obvi ous heart failure.
[2021-05-24 03:00] LABS: Glucose,Whole Blood 79 mg/dL (75-99)
[2021-05-24 04:17] VITALS: BP 124/63; PULSE 50; TEMP 97.6
== END 2021-05-24 03:10 | disposition home or self-care (01) ==
LOC: EC 23:32
DX: K85.90 Acute pancreatitis without necrosis or infection, unspecified (principal); R07.9 Chest pain, unspecified; R94.4 Abnormal results of kidney function studies; R79.89 Other specified abnormal findings of blood chemistry; R74.8 Abnormal levels of other serum enzymes; E03.9 Hypothyroidism, unspecified; E11.22 Type 2 diabetes mellitus with diabetic chronic kidney disease; E78.5 Hyperlipidemia, unspecified; I12.9 Hypertensive chronic kidney disease with stage 1 through stage 4 chronic kidney disease, or unspecified chronic kidney disease; I48.91 Unspecified atrial fibrillation; K21.9 Gastro-esophageal reflux disease without esophagitis; M19.90 Unspecified osteoarthritis, unspecified site; N18.9 Chronic kidney disease, unspecified; Z87.891 Personal history of nicotine dependence; Z79.899 Other long term (current) drug therapy; Z79.890 Hormone replacement therapy; Z79.4 Long term (current) use of insulin
CPT/HCPCS: 36415; 71046; 80053; 83690; 83735; 84484; 85025; 85610; 85730; 93005; 99285

== ENCOUNTER 2021-06-07 14:14 | Emergency (ER) | payer MEDICARE ==
[2021-06-07 15:05] VITALS: BP 157/45; PULSE 53; RESP 18; TEMP 98.2
[2021-06-07] MEDS ORDERED: AMOXIC-POT CLAV 875-125MG 1 EACH TAB PO STA (15:26)
[2021-06-07] MEDS ORDERED: DIPH,PERTUS(ACELL)TETVAC-LF 0.5 ML VIAL IM ONE (15:26)
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
== END 2021-06-07 15:55 | disposition home or self-care (01) ==
LOC: EC 14:14
DX: S60.511A Abrasion of right hand, initial encounter (principal); S60.512A Abrasion of left hand, initial encounter; E11.22 Type 2 diabetes mellitus with diabetic chronic kidney disease; I12.9 Hypertensive chronic kidney disease with stage 1 through stage 4 chronic kidney disease, or unspecified chronic kidney disease; N18.9 Chronic kidney disease, unspecified; E78.5 Hyperlipidemia, unspecified; E03.9 Hypothyroidism, unspecified; I48.91 Unspecified atrial fibrillation; M19.90 Unspecified osteoarthritis, unspecified site; Z79.899 Other long term (current) drug therapy; Z79.890 Hormone replacement therapy; Z23 Encounter for immunization; Z87.891 Personal history of nicotine dependence; Z79.891 Long term (current) use of opiate analgesic; Z79.4 Long term (current) use of insulin; W55.03XA Scratched by cat, initial encounter
CPT/HCPCS: 90471; 90715; 99283

== ENCOUNTER → 2021-06-08 | Outpatient (CLI) | payer MEDICARE ==
[2021-06-08 14:45] LABS: Appearance,Urine Clear (Clear); Bilirubin,Urine Negative (Negative); Blood,Urine Negative (Negative); Color,Urine Light Yellow; Glucose,Urine (UA) Negative (Negative); Ketones,Urine Negative (Negative); Leukocyte Esterase,Urine Negative (Negative); Nitrite,Urine Negative (Negative); PH, Urine 5.5 (5.0-8.0); Protein,Urine Trace (Negative); Specific Gravity,Urine 1.013 (1.001-1.035); Urobilinogen,Urine <2.0 mg/dL (<2.0)
[2021-06-09 03:17] LABS: HCT 36.4 % (39.6-50.0); MCH 34.2 pg (27.0-32.0); MCV 103.7 fL (80.0-97.0); Macrocytosis (M) 2+; Mean Platelet Volume 13.1 fL (9.5-12.2); Platelet Count 179 X 10*3/uL (140-440); RBC 3.51 X 10*6/uL (4.40-5.60); RDW 13.7 % (11.5-14.5); WBC 8.54 X 10*3/uL (4.50-10.00)
[2021-06-09 06:11] LABS: % Iron Saturation 37.11 (15.00-50.00); African American GFR (CKD) 34.7 (60.0-200.0); Albumin 4.4 g/dL (3.80-4.90); Albumin/Globulin Ratio 1.91 (1.60-3.17); Anion Gap 13.8 mmol/L (4.00-12.00); Calcium 8.6 mg/dL (8.7-10.3); Carbon Dioxide 19.2 mmol/L (21.6-31.8); Globulin 2.3 g/dL (1.6-3.3); Magnesium 2.3 mg/dL (1.5-2.4); Phosphorus 4.5 mg/dL (2.4-5.1); Potassium 5.7 mmol/L (3.5-5.5); Total Bilirubin 0.2 mg/dL (0.2-1.2); Total Protein 6.7 g/dL (6.2-8.2); Uric Acid 6.3 mg/dL (3.7-8.7)
== END | disposition home or self-care (01) ==
LOC: LABWHC1 13:31
PROVIDERS: ATTEND Nurse Practitioner Family
DX: N18.30 Chronic kidney disease, stage 3 unspecified (principal); D64.9 Anemia, unspecified; N39.0 Urinary tract infection, site not specified; R80.9 Proteinuria, unspecified; N25.81 Secondary hyperparathyroidism of renal origin; E55.9 Vitamin D deficiency, unspecified; M10.9 Gout, unspecified
CPT/HCPCS: 36415; 80053; 81003; 82043; 82306; 82570; 82728; 83540; 83550; 83735; 83970; 84100; 84550; 85027

== ENCOUNTER 2021-06-17 16:33 | Emergency (ER) | payer MEDICARE ==
[2021-06-17 16:51] VITALS: TEMP 98.8
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
[2021-06-17 17:45] LABS: Basophils # (A) 0.1 k/uL (0-0.2); Basophils % (A) 1 %; Eosinophils # (A) 0.3 k/uL (0-0.7); Eosinophils % (A) 4 %; HCT 39.1 % (39.0-53.0); HGB 13.1 gm/dL (13.0-17.5); Lymphocytes % (A) 24 %; MCH 34.8 pg (25.0-35.0); MCHC 33.5 g/dL (31.0-37.0); MCV 103.9 fL (80.0-100.0); Macrocytosis Slight; Mean Platelet Volume 9.4; Monocytes # (A) 0.4 k/uL (0-1.0); Monocytes % (A) 5 %; Neutrophils # (A) 5.4 k/uL (1.3-7.7); Neutrophils % (A) 65 %; Platelet Count 201 k/uL (150-450); RBC 3.76 m/uL (4.30-5.90); RDW 12.8 % (11.5-15.5); WBC 8.3 k/uL (3.8-10.6)
[2021-06-17 18:02] LABS: Calcium 8.7 mg/dL (8.4-10.2); Magnesium 2.4 mg/dL (1.6-2.3); Potassium 4.7 mmol/L (3.5-5.1)
[2021-06-17 20:11] VITALS: BP 154/77; PULSE 59; RESP 181
== END 2021-06-17 20:22 | disposition home or self-care (01) ==
LOC: EC 16:33
DX: I95.9 Hypotension, unspecified (principal); R19.7 Diarrhea, unspecified; E11.22 Type 2 diabetes mellitus with diabetic chronic kidney disease; I12.9 Hypertensive chronic kidney disease with stage 1 through stage 4 chronic kidney disease, or unspecified chronic kidney disease; N18.9 Chronic kidney disease, unspecified; I48.91 Unspecified atrial fibrillation; E78.5 Hyperlipidemia, unspecified; M19.90 Unspecified osteoarthritis, unspecified site; E03.9 Hypothyroidism, unspecified; K21.9 Gastro-esophageal reflux disease without esophagitis; Z79.890 Hormone replacement therapy; Z79.82 Long term (current) use of aspirin; Z79.4 Long term (current) use of insulin; Z79.899 Other long term (current) drug therapy; Z95.5 Presence of coronary angioplasty implant and graft; Z87.891 Personal history of nicotine dependence
CPT/HCPCS: 36415; 80048; 83735; 85025; 87324; 93005; 99284

== ENCOUNTER 2021-06-28 11:46 | Emergency (ER) | payer MEDICARE ==
[2021-06-28 12:05] VITALS: RESP 18; TEMP 98.4
[2021-06-28 12:51] LABS: Basophils # (A) 0.1 k/uL (0-0.2); Basophils % (A) 1 %; Eosinophils # (A) 0.3 k/uL (0-0.7); Eosinophils % (A) 4 %; HCT 38.7 % (39.0-53.0); HGB 13.2 gm/dL (13.0-17.5); Lymphocytes # (A) 1.7 k/uL (1.0-4.8); Lymphocytes % (A) 22 %; MCH 35.1 pg (25.0-35.0); MCHC 33.9 g/dL (31.0-37.0); MCV 103.5 fL (80.0-100.0); Macrocytosis Slight; Mean Platelet Volume 8.9; Monocytes # (A) 0.3 k/uL (0-1.0); Monocytes % (A) 4 %; Neutrophils # (A) 5.2 k/uL (1.3-7.7); Neutrophils % (A) 69 %; Platelet Count 194 k/uL (150-450); RBC 3.74 m/uL (4.30-5.90); RDW 12.8 % (11.5-15.5); WBC 7.6 k/uL (3.8-10.6)
[2021-06-28 12:58] LABS: Albumin 4.3 g/dL (3.5-5.0); Calcium 8.8 mg/dL (8.4-10.2); Magnesium 2.5 mg/dL (1.6-2.3); Potassium 4.7 mmol/L (3.5-5.1); Total Bilirubin 0.3 mg/dL (0.2-1.3)
--- NOTE | 2021-06-28 13:08 | XR ---
EXAMINATION TYPE: XR chest 2V DATE OF EXAM: 06/28/2021 COMPARISON: 05/24/2021 TECHNIQUE: PA and lateral views submitted. HISTORY: Shortness of breath FINDINGS: The heart is enlarged and there is atherosclerotic change aorta. Limited inspiration with subsegmenta l changes at the right lung base. No overt failure or pneumothorax. Arthropathy of the shoulders. Coa rsened interstitium appears chronic. IMPRESSION: 1. Increased interstitial changes are stable from prior exam may represent chronic interstitial lung disease or pneumonitis. 2. Basilar atelectasis favored over pneumonia. 3. Ectasia of the thoracic aorta correlate clinically.
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
[2021-06-28 13:28] LABS: Appearance,Urine Clear (Clear); Bilirubin,Urine Negative (Negative); Blood,Urine Negative (Negative); Color,Urine Light Yellow; Glucose,Urine (UA) Negative (Negative); Hyaline Casts,Urine 1 /lpf (0-2); Ketones,Urine Negative (Negative); Leukocyte Esterase,Urine Negative (Negative); Mucus,Urine Rare /hpf; Nitrite,Urine Negative (Negative); PH, Urine 5.5 (5.0-8.0); Protein,Urine 1+ (Negative); Specific Gravity,Urine 1.012 (1.001-1.035); Urobilinogen,Urine <2.0 mg/dL (<2.0); WBC,Urine <1 /hpf (0-5)
[2021-06-28 13:54] VITALS: BP 151/74; PULSE 53
== END 2021-06-28 13:53 | disposition home or self-care (01) ==
LOC: EC 11:46
DX: R19.7 Diarrhea, unspecified (principal); R11.2 Nausea with vomiting, unspecified; R50.9 Fever, unspecified; R09.81 Nasal congestion; E11.9 Type 2 diabetes mellitus without complications; I10 Essential (primary) hypertension; E03.9 Hypothyroidism, unspecified; E11.22 Type 2 diabetes mellitus with diabetic chronic kidney disease; I48.91 Unspecified atrial fibrillation; E78.5 Hyperlipidemia, unspecified; K21.9 Gastro-esophageal reflux disease without esophagitis; I12.9 Hypertensive chronic kidney disease with stage 1 through stage 4 chronic kidney disease, or unspecified chronic kidney disease; N18.9 Chronic kidney disease, unspecified; Z79.82 Long term (current) use of aspirin; Z87.891 Personal history of nicotine dependence; Z79.899 Other long term (current) drug therapy; Z20.822 Contact with and (suspected) exposure to COVID-19; Z23 Encounter for immunization
CPT/HCPCS: 36415; 71046; 80053; 81001; 83605; 83735; 85025; 87635; 99284

== ENCOUNTER 2021-06-29 19:31 | Observation (INO) | payer MEDICARE ==
[2021-06-29 20:01] LABS: Basophils # (A) 0.1 k/uL (0-0.2); Basophils % (A) 1 %; Eosinophils # (A) 0.3 k/uL (0-0.7); Eosinophils % (A) 4 %; HGB 13.4 gm/dL (13.0-17.5); Lymphocytes # (A) 2.7 k/uL (1.0-4.8); Lymphocytes % (A) 29 %; MCH 35.3 pg (25.0-35.0); MCHC 34.4 g/dL (31.0-37.0); MCV 102.5 fL (80.0-100.0); Macrocytosis Slight; Mean Platelet Volume 9.2; Monocytes # (A) 0.4 k/uL (0-1.0); Monocytes % (A) 4 %; Neutrophils # (A) 5.7 k/uL (1.3-7.7); Neutrophils % (A) 62 %; Platelet Count 191 k/uL (150-450); RBC 3.81 m/uL (4.30-5.90); RDW 12.7 % (11.5-15.5); WBC 9.3 k/uL (3.8-10.6)
--- NOTE | 2021-06-29 20:05 | XR ---
EXAMINATION TYPE: XR chest 2V DATE OF EXAM: 06/29/2021 COMPARISON: 06/28/2021 HISTORY: Chest pain TECHNIQUE: Frontal and lateral views of the chest are obtained. FINDINGS: There is minimal bibasilar atelectasis. No significant infiltrate, pleural effusion, or pn eumothorax seen. The cardiac silhouette size is within normal limits. The osseous structures are i ntact. IMPRESSION: No acute cardiopulmonary process.
[2021-06-29 20:15] LABS: Albumin 4.3 g/dL (3.5-5.0); Calcium 8.9 mg/dL (8.4-10.2); Magnesium 2.3 mg/dL (1.6-2.3); Potassium 4.7 mmol/L (3.5-5.1); Total Bilirubin 0.3 mg/dL (0.2-1.3); Total Protein 7.3 g/dL (6.3-8.2)
[2021-06-29 20:28] LABS: Partial Thromboplastin Time 34.6 sec (22.0-30.0); Prothrombin Time 10.4 sec (9.0-12.0)
[2021-06-29] MEDS ORDERED: NITROGLYCERIN OINT 1 INCH/GM PACKET TOPICAL STA (21:30)
[2021-06-29] MEDS ORDERED: ASPIRIN 81 MG PO STA (21:30)
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
[2021-06-29] MEDS ORDERED: ACETAMINOPHEN TAB 325 MG TAB PO PRN (22:09)
[2021-06-29] MEDS ORDERED: NITROGLYCERIN SL TABS 0.4 MG TAB SUBLINGUAL PRN (22:33)
[2021-06-29] MEDS ORDERED: FLUTICASONE 50MCG/SPRAY NASAL 16GM EA NOSTRIL PRN (22:33)
[2021-06-29] MEDS ORDERED: ERGOCALCIFEROL 1,250 MCG (50,000 IU) CAPSULE PO SCH (22:45)
[2021-06-29 23:57] LABS: Glucose,Whole Blood 133 mg/dL (75-99)
[2021-06-30] MEDS: PRIMIDONE 50 MG TAB PO SCH ×3 (00:14→22:28)
[2021-06-30] MEDS: TAMSULOSIN 0.4 MG CAP.ER.24H PO SCH ×3 (00:15→21:45)
[2021-06-30] MEDS: CHOLECALCIFEROL 25 MCG (1000 IU) TABLET PO SCH ×4 (00:16→21:45)
[2021-06-30] MEDS: ATORVASTATIN 40 MG TAB PO SCH ×2 (00:16→21:45)
[2021-06-30] MEDS: SERTRALINE 100 MG TAB PO SCH ×3 (00:16→22:29)
[2021-06-30] MEDS: GABAPENTIN 300 MG CAP PO SCH ×3 (00:18→21:45)
[2021-06-30] MEDS: MELATONIN 5 MG TABLET PO SCH ×2 (00:18→21:45)
[2021-06-30] MEDS: oxyCODONE-APAP 7.5-325MG 1 EACH TAB PO SCH ×3 (00:19→21:45)
[2021-06-30] MEDS: INSULIN ASPART (NovoLOG) 100 UNIT/ML VIAL SQ SCH ×5 (00:20→21:40)
[2021-06-30] MEDS: NITROGLYCERIN OINT 1 INCH/GM PACKET TOPICAL SCH ×4 (00:21→17:41)
[2021-06-30] MEDS: LEVOTHYROXINE 50 MCG TAB PO SCH (06:02)
[2021-06-30 07:28] LABS: Glucose,Whole Blood 142 mg/dL (75-99)
[2021-06-30] MEDS ORDERED: REGADENOSON 0.4 MG/5 ML SYRINGE IV PRN (08:46)
[2021-06-30] MEDS ORDERED: AMINOPHYLLINE 500 MG/20 ML VIAL IV PRN (08:46)
[2021-06-30] MEDS ORDERED: CAFFEINE CITRATE 60 MG/3 ML VIAL IV PRN (08:46)
[2021-06-30] MEDS ORDERED: TAMSULOSIN 0.4 MG CAP.ER.24H PO SCH (09:00)
[2021-06-30] MEDS ORDERED: NON FORMULARY DRUG (Aspirin Ec 81 MG Tablet) PO SCH (09:00)
[2021-06-30] MEDS ORDERED: ASPIRIN 325 MG TAB PO SCH (09:00)
[2021-06-30] MEDS: MULTIVITAMINS, THERA 1 EACH TAB PO SCH (09:31)
[2021-06-30] MEDS: FAMOTIDINE 20 MG TAB PO SCH (09:32)
[2021-06-30] MEDS: amLODIPine 10 MG TAB PO SCH (09:32)
[2021-06-30] MEDS: FUROSEMIDE 20 MG TAB PO SCH (09:33)
[2021-06-30] MEDS: ASPIRIN 81 MG PO SCH (09:33)
[2021-06-30 10:27] LABS: Chol/HDL Ratio 5.96 Ratio; HDL Cholesterol 24.5 mg/dL (40.00-60.00)
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
[2021-06-30 12:16] LABS: Glucose,Whole Blood 155 mg/dL (75-99)
--- NOTE | 2021-06-30 12:45 | NM ---
EXAMINATION TYPE: NM stress lexiscan cardiolite DATE OF EXAM: 06/30/2021 COMPARISON: Prior exam 01/29/2019 HISTORY: Chest pain TECHNIQUE: After the intravenous administration of 9.6 mCi Tc 99m Sestamibi - Cardiolite resting SPE CT images acquired 70 minutes post injection. The patient received 0.4mg Lexiscan, 25.6 mCi Tc 99m Sestamibi - Stress images obtained [address] injection FINDINGS: Review of stress and rest SPECT images demonstrates no distinct perfusion abnormality. Gated analysi s shows normal wall motion with an estimated left ventricular ejection fraction of 56 %. IMPRESSION: No scintigraphic evidence for reversible ischemia.
[2021-06-30] MEDS: INSULIN DETEMIR (LEVEMIR) 100 UNIT/ML SYR SQ SCH (12:49)
[2021-06-30] MEDS: ENOXAPARIN 40 MG/0.4 ML SYRINGE SQ SCH (12:52)
--- NOTE | 2021-06-30 14:00 | CT ---
EXAMINATION TYPE: CT abdomen pelvis wo con DATE OF EXAM: 06/30/2021 COMPARISON: CT 05/15/2021 HISTORY: RLQ pain CT DLP: 716.5 mGycm Automated exposure control for dose reduction was used. TECHNIQUE: Helical acquisition of images from the lung bases through the pelvis. FINDINGS: Lack of intravenous contrast could compromise sensitivity. Coronary artery calcifications are present. LUNG BASES: No significant abnormality is appreciated. AORTA: No significant abnormality is appreciataed. LIVER/GB: No significant abnormality is appreciated. PANCREAS: No significant abnormality is seen. SPLEEN: No significant interval change is seen, punctate calcification may be due to granuloma. ADRENALS: No significant abnormality is seen. KIDNEYS: No significant abnormality is seen. REPRODUCTIVE ORGANS: Prostate is enlarged and there are associated calcifications. URINARY BLADDER: No significant abnormality is seen. BOWEL: Postop changes to the bowel are again noted in the right upper quadrant. Extensive diverticul ar changes present in the sigmoid colon, on axial image #65, coronal image #40 some increased attenua tion in the pericolonic fat is noted FREE AIR: No Free Air is visible. ASCITES: None visible. PELVIC ADENOPATHY: None visualized. RETROPERITONEAL ADENOPATHY: No Retroperitoneal Adenopathy visible. OSSEOUS STRUCTURES: Patient is post fusion at L3-L5 as on prior exam, degenerative disc changes are present in the visualized spine, there is artifact due to patient's hardware. IMPRESSION: DIVERTICULOSIS, CORRELATE FOR POSSIBLE DIVERTICULITIS. POSTOP CHANGES. NONCONTRAST EXAM
--- NOTE | 2021-06-30 16:01 | ECHOF ---
Referral Reason:cp MEASUREMENTS -------- HEIGHT: 170.2 cm WEIGHT: 79.4 kg BP: 125/66 IVSd: 1.3 cm (0.6 - 1.1) LVIDd: 2.9 cm (3.9 - 5.3) LVPWd: 1.6 cm (0.6 - 1.1) EDV(Teich): 33 ml IVSs: 1.8 cm LVIDs: 1.7 cm LVPWs: 2.1 cm %IVS Thck: 31 % ESV(Teich): 8 ml EF(Teich): 75 % %FS: 42 % SV(Teich): 25 ml FINDINGS -------- This was a technically difficult study with suboptimal views. Limited Study The left ventricular size is normal. There is moderate concentric left ventricular hypertrophy. O verall left ventricular systolic function is normal with, an EF between 55 - 60 %. Lumason used There is no pericardial effusion. CONCLUSIONS -------- 1. The left ventricular size is normal. 2. There is moderate concentric left ventricular hypertrophy. 3. Overall left ventricular systolic function is normal with, an EF between 55 - 60 %. 4. There is no pericardial effusion. DECK MOLDER: Zaida Miguel RDCS
--- NOTE | 2021-06-30 16:42 | P.STRESS ---
- Stress Test Note Stress Test Results/Findings: Exam Performed: NM stress lexiscan cardiolite Exam Date: 06/30/21 Reason for Exam: CP Height: 5 ft 7 in Weight: 79.38 kg Protocol: LEXISCAN CARDIOLITE Stage: NA Duration of Exercise: NA Resting Heart Rate: 52 Resting Blood Pressure: 171/76 Maximum Achieved Heart Rate: 71 Maximum Achieved Blood Pressure: 171/76 85% PMHR: 116 100% PMHR: 137 METS: NA Technologist Comment: Stress Test Results/Findings: Baseline heart rate 52 beats a minute, Baseline blood pressure 171/76. His mercury Twelve-lead EKG shows sinus rhythm VA interval at very mildly increased, left bundle branch block pattern QRS He did complain of headache during Lexiscan infusion Heart rates remained in the normal range blood pressure is normal He did develop transient second-degree AV block but this is old weekly Patient has an underlying left bundle branch block pattern Nuclear portion will be reported separately
[2021-06-30 17:32] LABS: Glucose,Whole Blood 145 mg/dL (75-99)
[2021-06-30] MEDS: metroNIDAZOLE-NS PMX 500 MG in SALINE 1 100ML.BAG IVPB SCH (17:52)
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
--- NOTE | 2021-06-30 18:55 | P.PN ---
Progress Note - Text Progress Note Date: 06/30/21 Patient had stress test, cleared by cardiology; obtain CT abdomen and pelvis for lower quadrant discomfort possible diverticulosis versus diverticulitis we'll initiate IV antibiotics
[2021-06-30 20:35] LABS: Glucose,Whole Blood 129 mg/dL (75-99)
[2021-06-30] MEDS ORDERED: TIME SLEEP AID PO SCH (21:00)
[2021-06-30] MEDS: CIPROFLOXACIN/DEXTROSE PMX 400 MG in DEXTROSE/WATER 1 200ML.BAG IVPB SCH (21:44)
[2021-07-01] MEDS: NITROGLYCERIN OINT 1 INCH/GM PACKET TOPICAL SCH ×3 (02:47→11:06)
[2021-07-01] MEDS: metroNIDAZOLE-NS PMX 500 MG in SALINE 1 100ML.BAG IVPB SCH ×2 (02:47→07:55)
[2021-07-01] MEDS: LEVOTHYROXINE 50 MCG TAB PO SCH (05:55)
[2021-07-01 07:24] LABS: Glucose,Whole Blood 119 mg/dL (75-99)
[2021-07-01] MEDS: INSULIN DETEMIR (LEVEMIR) 100 UNIT/ML SYR SQ SCH (07:54)
[2021-07-01] MEDS: INSULIN ASPART (NovoLOG) 100 UNIT/ML VIAL SQ SCH ×2 (07:55→11:26)
[2021-07-01] MEDS: GABAPENTIN 300 MG CAP PO SCH (08:03)
[2021-07-01] MEDS: FUROSEMIDE 20 MG TAB PO SCH (08:03)
[2021-07-01] MEDS: oxyCODONE-APAP 7.5-325MG 1 EACH TAB PO SCH (08:03)
[2021-07-01] MEDS: MULTIVITAMINS, THERA 1 EACH TAB PO SCH (08:03)
[2021-07-01] MEDS: FAMOTIDINE 20 MG TAB PO SCH (08:03)
[2021-07-01] MEDS: amLODIPine 10 MG TAB PO SCH (08:03)
[2021-07-01] MEDS: ASPIRIN 81 MG PO SCH (08:04)
[2021-07-01] MEDS: CHOLECALCIFEROL 25 MCG (1000 IU) TABLET PO SCH (08:04)
[2021-07-01] MEDS: PRIMIDONE 50 MG TAB PO SCH (08:07)
[2021-07-01] MEDS: TAMSULOSIN 0.4 MG CAP.ER.24H PO SCH (08:10)
[2021-07-01] MEDS: SERTRALINE 100 MG TAB PO SCH (08:10)
[2021-07-01] MEDS: ENOXAPARIN 40 MG/0.4 ML SYRINGE SQ SCH (08:10)
--- NOTE | 2021-07-01 08:16 | ECHOS ---
Exam Performed: NM stress lexiscan cardiolite Exam Date: 06/30/21 Reason for Exam: CP Height: 5 ft 7 in Weight: 79.38 kg Protocol: LEXISCAN CARDIOLITE Stage: NA Duration of Exercise: NA Resting Heart Rate: 52 Resting Blood Pressure: 171/76 Maximum Achieved Heart Rate: 71 Maximum Achieved Blood Pressure: 171/76 85% PMHR: 116 100% PMHR: 137 METS: NA Technologist Comment: Stress Test Results/Findings: Baseline heart rate 52 beats a minute, Baseline blood pressure 171/76. His mercury Twelve-lead EKG shows sinus rhythm FL interval at very mildly increased, left bundle branch block pattern QRS He did complain of headache during Lexiscan infusion Heart rates remained in the normal range blood pressure is normal He did develop transient second-degree AV block but this is old weekly Patient has an underlying left bundle branch block pattern Nuclear portion will be reported separately MTDD
[2021-07-01] MEDS: CIPROFLOXACIN/DEXTROSE PMX 400 MG in DEXTROSE/WATER 1 200ML.BAG IVPB SCH (09:11)
[2021-07-01 11:05] LABS: Glucose,Whole Blood 226 mg/dL (75-99)
[2021-07-01 11:47] VITALS: BMI 27.3
[2021-07-01 12:29] LABS: Glucose,Whole Blood 167 mg/dL (75-99)
[2021-07-01 14:27] VITALS: BP 159/61; PULSE 62; RESP 18; TEMP 97.9
--- NOTE | 2021-07-01 17:58 | P.DS ---
Providers Date of admission: 06/29/21 22:10 Expected date of discharge: 07/01/21 Attending physician: Reilly Higginbotham Consults: 06/29/21 22:10 Consult Physician Urgent Consulting Provider: Linda Milian Consult Reason/Comments: cp Do you want consulting provider notified?: Yes 07/01/21 09:52 Consult Physician Urgent Consulting Provider: Art Dubois Consult Reason/Comments: verify discharge antibiotics Do you want consulting provider notified?: Yes Primary care physician: Reilly Higginbotham Hospital Course: 81-year-old male with significant medical history of paroxysmal atrial fibrillation, hyperlipidemia, hypertension, diabetes mellitus type 2, coronary artery disease with history of heart catheterization 6 years ago with coronary stenting, hypothyroidism, chronic renal failure stage IIIB, BPH, peripheral neuropathy, insomnia, mixed anxiety and depression, and several comorbidities is admitted to the hospital for chest pain rule out ACS. Patient had extensive diagnostic workup in the emergency department revealing no acute changes on 12- lead EKG, negative troponins, no acute processes noted on chest x-ray, and baseline renal failure stage IIIB. Consultation with cardiology for expert opinion recommendations for chest pain rule out ACS. Patient had Lexiscan stress tests which showed no acute reversible ischemia; see dictation from cardiology. Patient had CT abdomen and pelvis, revealing diverticulosis with correlation of possible diverticulitis. Upon review of physical exam patient tender to left and right lower quadrant consistent with diverticulitis no elevated white count or shift noted. Patient started on Flagyl and Cipro for diverticulitis, tolerated well. Patient had positive blood cultures gram- positive bacilli, Cipro will cover gram-positive bacilli. Patient shows no signs of systemic infection. Patient tolerated IV antibiotic therapy transitioned to by mouth antibiotic therapy for an additional 6 days. Patient discharged in stable condition with guarded prognosis due to multiple comorbidities Assessment: Chest discomfort rule out acute coronary syndrome Coronary artery disease with history of heart catheterization with coronary stenting 6 years ago Paroxysmal atrial fibrillation Diabetes mellitus type 2 GERD/reflux Hyperlipidemia Hypertension BPH Chronic renal failure stage IIIB Hypothyroidism peripheral neuropathy Mixed anxiety and depression Tremors Chronic back pain Full code Final diagnosis Atypical chest pain acute coronary syndrome ruled out Hypertension continue home medications will follow-up with primary care and cardiology Diverticulitis continue Cipro and Flagyl for additional 6 days Health Concerns: Multiple comorbidities Complex medical treatment plan Pertinent Studies: Chest x-ray; no acute cardiopulmonary processes Echocardiogram: Moderate left ventricular hypertrophy, overall ventricle systolic function is normal with EF of 55% to 60% Stress tests: See dictation from cardiology no acute abnormalities noted CT abdomen and pelvis without contrast: Diverticulosis with possible diverticulitis Procedures: No procedures performed during hospital stay Patient Condition at Discharge: Good Plan - Discharge Summary Discharge Rx Participant: Yes New Discharge Prescriptions: New Ciprofloxacin HCl [Cipro] 500 mg PO BID 6 Days #12 tab metroNIDAZOLE [Flagyl] 500 mg PO TID 6 Days #18 tab Continue Sertraline [Zoloft] 100 mg PO BID rOPINIRole HCL [Requip] 0.5 mg PO HS Levothyroxine Sodium [Synthroid] 50 mcg PO DAILY calcitrioL [Calcitriol] 0.25 mcg PO SUMOWEFR Gabapentin 600 mg PO BID Furosemide [Lasix] 20 mg PO DAILY Tamsulosin [Flomax] 0.4 mg PO TID Nitroglycerin Sl Tabs [Nitrostat] 0.4 mg SUBLINGUAL Q5M PRN PRN Reason: Chest Pain Fluticasone Propionate 2 spray EA NOSTRIL DAILY PRN PRN Reason: Allergy Symptoms Spectravite 1 tab PO DAILY Cholecalciferol [Vitamin D3 (25 Mcg = 1000 Iu)] 25 mcg PO TID diphenhydrAMINE [Benadryl] 25 mg PO DAILY Ergocalciferol [Vitamin D2 (1250 Mcg = 55507 Iu)] 1,250 mcg PO Q30D Insulin Glargine,Hum.rec.anlog [Lantus Solostar Pen] 30 units SQ DAILY oxyCODONE-APAP 7.5-325MG [Percocet 7.5-325 mg] 1 tab PO BID Rosuvastatin [Crestor] 20 mg PO HS Triamcinolone 0.1% Ointment [Kenalog 0.1% Ointment] 1 applic TOPICAL BID Aspirin EC [Ecotrin Low Dose] 81 mg PO DAILY Primidone [Mysoline] 150 mg PO BID amLODIPine [Norvasc] 10 mg PO DAILY Nite Time Sleep Aid 50 mg PO HS Melatonin 20 mg PO HS Famotidine [Pepcid] 20 mg PO DAILY Discharge Medication List Sertraline [Zoloft] 100 mg PO BID 02/18/16 [History] rOPINIRole HCL [Requip] 0.5 mg PO HS 08/20/16 [History] Levothyroxine Sodium [Synthroid] 50 mcg PO DAILY 12/11/18 [History] calcitrioL [Calcitriol] 0.25 mcg PO SUMOWEFR 12/11/18 [History] Furosemide [Lasix] 20 mg PO DAILY 12/15/18 [History] Gabapentin 600 mg PO BID 12/15/18 [History] Fluticasone Propionate 2 spray EA NOSTRIL DAILY PRN 07/11/20 [History] Nitroglycerin Sl Tabs [Nitrostat] 0.4 mg SUBLINGUAL Q5M PRN 07/11/20 [History] Tamsulosin [Flomax] 0.4 mg PO TID 07/11/20 [History] Primidone [Mysoline] 150 mg PO BID 01/26/21 [History] amLODIPine [Norvasc] 10 mg PO DAILY 01/26/21 [History] Cholecalciferol [Vitamin D3 (25 Mcg = 1000 Iu)] 25 mcg PO TID 05/15/21 [History] Ergocalciferol [Vitamin D2 (1250 Mcg = 69050 Iu)] 1,250 mcg PO Q30D 05/15/21 [History] Insulin Glargine,Hum.rec.anlog [Lantus Solostar Pen] 30 units SQ DAILY 05/15/21 [History] Melatonin 20 mg PO HS 05/15/21 [History] Nite Time Sleep Aid 50 mg PO HS 05/15/21 [History] Rosuvastatin [Crestor] 20 mg PO HS 05/15/21 [History] Spectravite 1 tab PO DAILY 05/15/21 [History] Triamcinolone 0.1% Ointment [Kenalog 0.1% Ointment] 1 applic TOPICAL BID 05/15/21 [History] diphenhydrAMINE [Benadryl] 25 mg PO DAILY 05/15/21 [History] oxyCODONE-APAP 7.5-325MG [Percocet 7.5-325 mg] 1 tab PO BID 05/15/21 [History] Aspirin EC [Ecotrin Low Dose] 81 mg PO DAILY 06/17/21 [History] Famotidine [Pepcid] 20 mg PO DAILY 06/17/21 [History] Ciprofloxacin HCl [Cipro] 500 mg PO BID 6 Days #12 tab 07/01/21 [Rx] metroNIDAZOLE [Flagyl] 500 mg PO TID 6 Days #18 tab 07/01/21 [Rx] Follow up Appointment(s)/Referral(s): Reilly Higginbotham MD [Primary Care Provider] - 07/03/21 2:10 pm Feliciano Green MD [STAFF PHYSICIAN] - 07/15/21 10:30 am Art Dubois MD [STAFF PHYSICIAN] - 2 Weeks (Call for appointment) Patient Instructions/Handouts: Chest Pain (DC), Diverticulitis (DC) Discharge Disposition: HOME SELF-CARE
== END 2021-07-01 15:51 | disposition home or self-care (01) ==
LOC: EC 19:31 → 6NMEDSUR 22:10
PROVIDERS: ADMIT Family Medicine; ATTEND Family Medicine
DX: R07.2 Precordial pain (principal); K57.92 Diverticulitis of intestine, part unspecified, without perforation or abscess without bleeding; R78.81 Bacteremia; B96.89 Other specified bacterial agents as the cause of diseases classified elsewhere; I25.110 Atherosclerotic heart disease of native coronary artery with unstable angina pectoris; I48.0 Paroxysmal atrial fibrillation; Z20.822 Contact with and (suspected) exposure to COVID-19; E11.22 Type 2 diabetes mellitus with diabetic chronic kidney disease; I12.9 Hypertensive chronic kidney disease with stage 1 through stage 4 chronic kidney disease, or unspecified chronic kidney disease; N18.32 Chronic kidney disease, stage 3b; E11.42 Type 2 diabetes mellitus with diabetic polyneuropathy; K21.9 Gastro-esophageal reflux disease without esophagitis; E78.5 Hyperlipidemia, unspecified; N40.0 Benign prostatic hyperplasia without lower urinary tract symptoms; F41.8 Other specified anxiety disorders; R25.1 Tremor, unspecified; I44.7 Left bundle-branch block, unspecified; G89.29 Other chronic pain; M54.9 Dorsalgia, unspecified; K44.9 Diaphragmatic hernia without obstruction or gangrene; E03.9 Hypothyroidism, unspecified; M19.90 Unspecified osteoarthritis, unspecified site; G47.00 Insomnia, unspecified; Z79.82 Long term (current) use of aspirin; Z79.4 Long term (current) use of insulin; Z79.890 Hormone replacement therapy; Z79.899 Other long term (current) drug therapy; Z96.651 Presence of right artificial knee joint; Z96.1 Presence of intraocular lens; Z97.0 Presence of artificial eye; Z87.891 Personal history of nicotine dependence; Z90.49 Acquired absence of other specified parts of digestive tract; Z98.1 Arthrodesis status; Z90.79 Acquired absence of other genital organ(s); Z95.5 Presence of coronary angioplasty implant and graft; Z85.038 Personal history of other malignant neoplasm of large intestine; Z86.69 Personal history of other diseases of the nervous system and sense organs; Z80.8 Family history of malignant neoplasm of other organs or systems; Z82.49 Family history of ischemic heart disease and other diseases of the circulatory system
CPT/HCPCS: 99285; 96365; 96366; 96367; 36415; 93005 ×2; 93017; 85379; 80061; 80053; 83735; 84484 ×2; 85025; 85610; 85730; 87040; 83721; 87635; 71046; 74176; 78452; G0378 ×3; C8924; A9500; J0744 ×2; J2785; Q9950; 93308

== ENCOUNTER 2021-07-09 11:33 | Emergency (ER) | payer MEDICARE ==
[2021-07-09 11:41] VITALS: RESP 18
[2021-07-09] MEDS ORDERED: SODIUM CHLORIDE 0.9% 1,000 ML IV STA (12:03)
[2021-07-09 12:36] LABS: Basophils # (A) 0.1 k/uL (0-0.2); Basophils % (A) 1 %; Eosinophils # (A) 0.4 k/uL (0-0.7); Eosinophils % (A) 4 %; HCT 37.2 % (39.0-53.0); HGB 12.6 gm/dL (13.0-17.5); Lymphocytes # (A) 1.6 k/uL (1.0-4.8); Lymphocytes % (A) 17 %; MCH 34.5 pg (25.0-35.0); MCHC 33.9 g/dL (31.0-37.0); MCV 101.6 fL (80.0-100.0); Mean Platelet Volume 9.3; Monocytes # (A) 0.4 k/uL (0-1.0); Monocytes % (A) 4 %; Neutrophils # (A) 7.4 k/uL (1.3-7.7); Neutrophils % (A) 75 %; Platelet Count 198 k/uL (150-450); RBC 3.66 m/uL (4.30-5.90); RDW 12.7 % (11.5-15.5); WBC 9.9 k/uL (3.8-10.6)
[2021-07-09 12:47] LABS: Albumin 3.8 g/dL (3.5-5.0); Calcium 8.8 mg/dL (8.4-10.2); Magnesium 2.3 mg/dL (1.6-2.3); Potassium 4.2 mmol/L (3.5-5.1); Total Bilirubin 0.3 mg/dL (0.2-1.3); Total Protein 6.6 g/dL (6.3-8.2)
[2021-07-09 12:56] LABS: Appearance,Urine Clear (Clear); Bilirubin,Urine Negative (Negative); Blood,Urine Small (Negative); Color,Urine Yellow; Glucose,Urine (UA) Negative (Negative); Hyaline Casts,Urine 1 /lpf (0-2); Ketones,Urine Negative (Negative); Leukocyte Esterase,Urine Negative (Negative); Mucus,Urine Rare /hpf; Nitrite,Urine Negative (Negative); Protein,Urine 2+ (Negative); RBC,Urine <1 /hpf (0-5); Specific Gravity,Urine 1.016 (1.001-1.035); Urobilinogen,Urine <2.0 mg/dL (<2.0); WBC,Urine 1 /hpf (0-5)
[2021-07-09] MEDS ORDERED: amLODIPine 10 MG TAB PO STA (13:30)
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
[2021-07-09 14:54] VITALS: BP 162/86; PULSE 75; TEMP 98.3
== END 2021-07-09 15:00 | disposition home or self-care (01) ==
LOC: EC 11:33
DX: R53.83 Other fatigue (principal); R11.0 Nausea; E86.0 Dehydration; R19.7 Diarrhea, unspecified; E03.9 Hypothyroidism, unspecified; E11.22 Type 2 diabetes mellitus with diabetic chronic kidney disease; E78.5 Hyperlipidemia, unspecified; K21.9 Gastro-esophageal reflux disease without esophagitis; I48.91 Unspecified atrial fibrillation; I12.9 Hypertensive chronic kidney disease with stage 1 through stage 4 chronic kidney disease, or unspecified chronic kidney disease; M19.90 Unspecified osteoarthritis, unspecified site; N18.9 Chronic kidney disease, unspecified; Z79.4 Long term (current) use of insulin; Z79.82 Long term (current) use of aspirin; Z79.899 Other long term (current) drug therapy; Z79.890 Hormone replacement therapy; Z87.891 Personal history of nicotine dependence; Z20.822 Contact with and (suspected) exposure to COVID-19
CPT/HCPCS: 36415; 80053; 81001; 83735; 85025; 87324; 87635; 96360; 99284

== ENCOUNTER → 2021-07-10 | Outpatient (CLI) | payer MEDICARE ==
--- NOTE | 2021-07-10 12:45 | CT ---
EXAMINATION TYPE: CT chest wo con DATE OF EXAM: 07/10/2021 COMPARISON: 11/29/2017 HISTORY: 81-year-old male R06.00, Dyspnea. Shortness of breath. TECHNIQUE: Contiguous axial scanning of the chest without IV contrast. Coronal and sagittal reconstru ctions performed. CT DLP: 365.6 mGycm Automated exposure control for dose reduction was used. FINDINGS: Heart normal size without pericardial effusion. Extensive LAD and RCA coronary artery calcifications are present. Aorta shows bovine configuration. Mild to moderate atherosclerotic calcifications throughout the aort ic arch and descending thoracic aorta. Mediastinal lymph nodes measure up to 7 mm lower right paratracheal region. No thoracic lymphadenopat hy by CT size criteria. There is vague hazy groundglass density in the mid and lower lungs. This is primarily peribronchovasc ular and basilar. No nick consolidation or pleural effusion. A more nodular 7 mm density at the inferior lingula. Visualized upper abdomen shows a calcified granuloma within the spleen. Bones: Postsurgical change of posterior lumbar fusion noted on the nurse first assist image. Advanced spondylotic changes partially visualized cervical spine and moderate to advanced degenerative disc disease lower thoracic and visualized upper lumbar spine. IMPRESSION: 1. EXTENSIVE LAD AND RCA CORONARY ARTERY CALCIFICATIONS. FINDINGS ARE A MARKER FOR CORONARY ARTERY DI SEASE. 2. VAGUE HAZY GROUNDGLASS DENSITY IN THE MID AND LOWER LUNGS COULD REPRESENT PROMINENT AREAS OF SUBSE GMENTAL ATELECTASIS. SUBTLE DEVELOPING INFECTIOUS OR INFLAMMATORY INFILTRATES ARE DIFFICULT TO ENTIRE LY EXCLUDE SUCH IN THE SETTING OF DIP, BAG REPAIRER, OR DEVELOPING COVID PNEUMONIA. FURTHER CLINICAL CORREL ATION RECOMMENDED. RECOMMEND 3 MONTH FOLLOW-UP CT CHEST. 3. A 7 MM NODULE INFERIOR LINGULA SHOULD ALSO BE REASSESSED AT THE 3 MONTH FOLLOW-UP.
== END | disposition home or self-care (01) ==
LOC: RADCTMAIN 12:07
PROVIDERS: ATTEND Family Medicine
DX: I25.10 Atherosclerotic heart disease of native coronary artery without angina pectoris (principal)
CPT/HCPCS: 71250

== ENCOUNTER 2021-07-14 11:04 | Emergency (ER) | payer MEDICARE ==
[2021-07-14 11:20] VITALS: RESP 18
[2021-07-14] MEDS ORDERED: ONDANSETRON 4 MG/2 ML VIAL IVP STA (11:57)
[2021-07-14] MEDS ORDERED: SODIUM CHLORIDE 0.9% 1,000 ML IV STA (11:57)
[2021-07-14 13:13] LABS: Amphetamine Screen,Urine Not Detected (NotDetected); Barbiturate Screen,Urine Detected (NotDetected); Benzodiazepines Screen,Urine Not Detected (NotDetected); Cocaine Screen,Urine Not Detected (NotDetected); Methadone Screen, Urine Not Detected (NotDetected); Opiate Screen,Urine Not Detected (NotDetected); Oxycodone Screen, Urine Not Detected (NotDetected); Phencyclidine Screen,Urine Not Detected (NotDetected); Tricyclic Antidepressant,Urine Not Detected (NotDetected); Urn Cannabinoid Scrn Not Detected (NotDetected)
[2021-07-14] MEDS ORDERED: PRIMIDONE 50 MG TAB PO STA (14:29)
[2021-07-14] MEDS ORDERED: SERTRALINE 50 MG TAB PO STA (14:29)
[2021-07-14] MEDS ORDERED: ACETAMINOPHEN TAB 325 MG TAB PO STA (15:19)
[2021-07-14 16:16] LABS: Glucose,Whole Blood 208 mg/dL (75-99)
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
[2021-07-14] MEDS ORDERED: ONDANSETRON 4 MG ODT STARTER PACK 2 TAB BTL PO STA (16:33)
[2021-07-14 17:07] VITALS: BP 180/90; PULSE 69; TEMP 98
== END 2021-07-14 17:04 | disposition home or self-care (01) ==
LOC: EC 11:04
DX: R45.851 Suicidal ideations (principal); R11.2 Nausea with vomiting, unspecified; R19.7 Diarrhea, unspecified; R10.9 Unspecified abdominal pain; E03.9 Hypothyroidism, unspecified; E11.22 Type 2 diabetes mellitus with diabetic chronic kidney disease; E78.5 Hyperlipidemia, unspecified; I12.9 Hypertensive chronic kidney disease with stage 1 through stage 4 chronic kidney disease, or unspecified chronic kidney disease; I48.91 Unspecified atrial fibrillation; K21.9 Gastro-esophageal reflux disease without esophagitis; M19.90 Unspecified osteoarthritis, unspecified site; N18.9 Chronic kidney disease, unspecified; Z79.4 Long term (current) use of insulin; Z79.52 Long term (current) use of systemic steroids; Z79.82 Long term (current) use of aspirin; Z79.899 Other long term (current) drug therapy; Z87.891 Personal history of nicotine dependence
CPT/HCPCS: 36415; 80306; 99285; 96374; 96361; J2405; S0119

== ENCOUNTER 2021-07-17 14:59 | Emergency (ER) | payer MEDICARE ==
[2021-07-17 16:59] VITALS: BP 190/81; PULSE 64; RESP 18; TEMP 98.7
[2021-07-17 19:11] LABS: Appearance,Urine Clear (Clear); Basophils % (A) 0 %; Bilirubin,Urine Negative (Negative); Blood,Urine Small (Negative); Color,Urine Yellow; Eosinophils % (A) 0 %; Glucose,Urine (UA) 3+ (Negative); HCT 41.7 % (39.0-53.0); Ketones,Urine Negative (Negative); Leukocyte Esterase,Urine Negative (Negative); Lymphocytes # (A) 1.8 k/uL (1.0-4.8); Lymphocytes % (A) 17 %; MCH 34.1 pg (25.0-35.0); MCHC 33.6 g/dL (31.0-37.0); MCV 101.5 fL (80.0-100.0); Macrocytosis Slight; Mean Platelet Volume 9.1; Monocytes # (A) 0.4 k/uL (0-1.0); Monocytes % (A) 4 %; Mucus,Urine Rare /hpf; Neutrophils # (A) 8.2 k/uL (1.3-7.7); Neutrophils % (A) 77 %; Nitrite,Urine Negative (Negative); Platelet Count 292 k/uL (150-450); Protein,Urine 3+ (Negative); RBC 4.11 m/uL (4.30-5.90); RBC,Urine 1 /hpf (0-5); Specific Gravity,Urine 1.022 (1.001-1.035); Urobilinogen,Urine <2.0 mg/dL (<2.0); WBC 10.7 k/uL (3.8-10.6); WBC,Urine 1 /hpf (0-5)
[2021-07-17 19:16] LABS: Partial Thromboplastin Time 29.8 sec (22.0-30.0); Prothrombin Time 10.3 sec (9.0-12.0)
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
[2021-07-17 19:45] LABS: Albumin 4.5 g/dL (3.5-5.0); Calcium 8.6 mg/dL (8.4-10.2); Potassium 3.7 mmol/L (3.5-5.1); Total Bilirubin 0.3 mg/dL (0.2-1.3); Total Protein 7.5 g/dL (6.3-8.2)
[2021-07-17 19:46] LABS: Magnesium 2.4 mg/dL (1.6-2.3)
[2021-07-17 20:07] LABS: Glucose,Whole Blood 216 mg/dL (75-99)
== END 2021-07-17 23:10 | disposition home or self-care (01) ==
LOC: EC 14:59
DX: R19.7 Diarrhea, unspecified (principal); R11.2 Nausea with vomiting, unspecified; E03.9 Hypothyroidism, unspecified; R53.1 Weakness; R53.81 Other malaise; R50.9 Fever, unspecified; E11.22 Type 2 diabetes mellitus with diabetic chronic kidney disease; E78.5 Hyperlipidemia, unspecified; I12.9 Hypertensive chronic kidney disease with stage 1 through stage 4 chronic kidney disease, or unspecified chronic kidney disease; K21.9 Gastro-esophageal reflux disease without esophagitis; M19.90 Unspecified osteoarthritis, unspecified site; N18.9 Chronic kidney disease, unspecified; Z79.4 Long term (current) use of insulin; Z79.82 Long term (current) use of aspirin; I48.91 Unspecified atrial fibrillation; Z87.891 Personal history of nicotine dependence; Z90.79 Acquired absence of other genital organ(s); Z96.651 Presence of right artificial knee joint; Z79.890 Hormone replacement therapy; Z79.899 Other long term (current) drug therapy
CPT/HCPCS: 36415; 80053; 81001; 82150; 83605; 83690; 83735; 84484; 85025; 85610; 85730; 93005; 99285

== ENCOUNTER 2021-08-13 18:32 | Inpatient (IN) | payer MEDICARE ==
[2021-08-13] MEDS ORDERED: ACETAMINOPHEN TAB 500 MG TAB PO STA (18:47)
[2021-08-13] MEDS ORDERED: SODIUM CHLORIDE 0.9% 1,000 ML IV STA ×3 (18:56→20:01)
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
[2021-08-13 19:09] LABS: Basophils # (A) 0.1 k/uL (0-0.2); Basophils % (A) 0 %; Eosinophils # (A) 0.1 k/uL (0-0.7); Eosinophils % (A) 1 %; HCT 40.1 % (39.0-53.0); HGB 14.1 gm/dL (13.0-17.5); Lymphocytes # (A) 2.5 k/uL (1.0-4.8); Lymphocytes % (A) 17 %; MCH 35.6 pg (25.0-35.0); MCHC 35.1 g/dL (31.0-37.0); MCV 101.6 fL (80.0-100.0); Mean Platelet Volume 9.8; Monocytes # (A) 0.6 k/uL (0-1.0); Monocytes % (A) 4 %; Neutrophils # (A) 11.4 k/uL (1.3-7.7); Neutrophils % (A) 77 %; Platelet Count 220 k/uL (150-450); RBC 3.94 m/uL (4.30-5.90); RDW 12.6 % (11.5-15.5); WBC 14.9 k/uL (3.8-10.6)
[2021-08-13 19:21] LABS: Partial Thromboplastin Time 39.2 sec (22.0-30.0); Prothrombin Time 10.6 sec (9.0-12.0)
[2021-08-13 19:23] LABS: Ionized Calcium 4.7 mg/dL (4.5-5.3)
[2021-08-13 19:31] LABS: Albumin 4.3 g/dL (3.5-5.0); Calcium 8.8 mg/dL (8.4-10.2); Magnesium 2.2 mg/dL (1.6-2.3); Potassium 4.4 mmol/L (3.5-5.1); Total Bilirubin 0.5 mg/dL (0.2-1.3); Total Protein 7.2 g/dL (6.3-8.2)
--- NOTE | 2021-08-13 19:43 | XR ---
EXAMINATION: XR chest 1V portable DATE AND TIME: 08/13/2021 7:20 PM CLINICAL INDICATION: PHH; cough TECHNIQUE: AP upright portable COMPARISON: 06/29/2020 FINDINGS: There is consolidative opacity in the retrocardiac position of the left lower lobe, consistent with a clinical diagnosis of pneumonia. The lungs are otherwise clear. The pleural spaces are negative. The cardiac silhouette is not definitely enlarged on this AP view; remainder of the mediastinal silho uette is unremarkable. The skeletal structures and soft tissues are negative for acute findings. IMPRESSION: Left lower lobe consolidation.
[2021-08-13] MEDS ORDERED: cefTRIAXone IN SWFI 1,000 MG/10 ML SYRINGE IVP STA (19:52)
[2021-08-13] MEDS ORDERED: AZITHROMYCIN 500 MG in SODIUM CHLORIDE 0.9% 250 ML IVPB STA (19:52)
[2021-08-13] MEDS ORDERED: PNEUMONIA PROTOCOL UTILIZED 1 EACH MISC PO PRN (19:57)
[2021-08-13] MEDS ORDERED: KETOROLAC 30 MG/ML 1 ML VIAL IVP STA (20:26)
[2021-08-13] MEDS ORDERED: ARTIFICIAL TEARS-HYPROMELLOSE DROPS 15 ML BTL BOTH EYES PRN (20:35)
[2021-08-14] MEDS: SERTRALINE 100 MG TAB PO SCH ×3 (00:11→19:59)
[2021-08-14] MEDS: PRIMIDONE 50 MG TAB PO SCH ×3 (00:11→19:59)
[2021-08-14] MEDS: oxyCODONE-APAP 7.5-325MG 1 EACH TAB PO SCH ×3 (00:12→19:58)
[2021-08-14] MEDS: ATORVASTATIN 40 MG TAB PO SCH ×2 (00:12→19:59)
[2021-08-14] MEDS: FAMOTIDINE 20 MG TAB PO SCH ×2 (00:12→09:04)
[2021-08-14] MEDS: HEPARIN SODIUM,PORCINE/PF 5,000 UNIT/0.5 ML SYRINGE SQ SCH ×3 (00:12→20:00)
[2021-08-14] MEDS: TAMSULOSIN 0.4 MG CAP.ER.24H PO SCH ×4 (00:12→21:30)
[2021-08-14] MEDS: GABAPENTIN 300 MG CAP PO SCH ×3 (00:12→19:58)
[2021-08-14 00:20] LABS: Glucose,Whole Blood 225 mg/dL (75-99)
[2021-08-14] MEDS: INSULIN ASPART (NovoLOG) 100 UNIT/ML VIAL SQ SCH ×5 (00:21→21:30)
[2021-08-14] MEDS: ALBUTEROL NEBULIZED 2.5 MG/3 ML INHALATION SCH ×4 (07:43→20:35)
[2021-08-14] MEDS: LEVOTHYROXINE 50 MCG TAB PO SCH (09:03)
[2021-08-14] MEDS: ASPIRIN 81 MG PO SCH (09:03)
[2021-08-14] MEDS: ACETAMINOPHEN TAB 325 MG TAB PO PRN (09:03)
[2021-08-14] MEDS: MULTIVITAMINS, THERA 1 EACH TAB PO SCH (09:05)
[2021-08-14] MEDS: CHOLECALCIFEROL 25 MCG (1000 IU) TABLET PO SCH (09:05)
[2021-08-14 11:00] LABS: HCT 41.7 % (39.6-50.0); HGB 13.4 g/dL (13.0-17.0); MCH 34.4 pg (27.0-32.0); MCHC 32.1 g/dL (32.0-37.0); MCV 106.9 fL (80.0-97.0); Mean Platelet Volume 12.3 fL (9.5-12.2); Platelet Count 192 X 10*3/uL (140-440); RDW 13.1 % (11.5-14.5); WBC 13.98 X 10*3/uL (4.50-10.00)
[2021-08-14 11:34] LABS: Basophils # (A) 0.06 X 10*3/uL (0.00-0.10); Basophils % (A) 0.4 %; Eosinophils # (A) 0.06 X 10*3/uL (0.04-0.35); Eosinophils % (A) 0.4 %; Lymphocytes # (A) 2.17 X 10*3/uL (0.90-5.00); Lymphocytes % (A) 15.5 %; Monocytes # (A) 0.69 X 10*3/uL (0.20-1.00); Monocytes % (A) 4.9 %; Neutrophils # (A) 10.88 X 10*3/uL (1.80-7.70); Neutrophils % (A) 77.9 %
[2021-08-14 11:35] LABS: Acanthocytes 2+
[2021-08-14 11:39] LABS: Anion Gap 17.4 mmol/L (10.00-18.00); BUN/Creat Ratio 13.09 Ratio (12.00-20.00); Blood Urea Nitrogen 28.8 mg/dL (9.0-27.0); Calcium 8.4 mg/dL (8.7-10.3); Carbon Dioxide 14.6 mmol/L (20.0-27.5); Non-African American GFR(CKD) 26.7 (60.0-200.0); Potassium 4.4 mmol/L (3.5-5.5)
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
[2021-08-14] MEDS: INSULIN DETEMIR (LEVEMIR) 100 UNIT/ML SYR SQ SCH (14:40)
[2021-08-14 17:52] LABS: Glucose,Whole Blood 316 mg/dL (75-99)
[2021-08-14] MEDS: SODIUM CHLORIDE 0.9% 1,000 ML IV SCH ×2 (17:57→21:32)
[2021-08-14 21:05] LABS: Glucose,Whole Blood 315 mg/dL (75-99)
[2021-08-14] MEDS: guaiFENesin-DM 100-10MG/5ML 10 ML CUP PO PRN (21:30)
[2021-08-14] MEDS: AZITHROMYCIN 500 MG TAB PO SCH (21:30)
[2021-08-15] MEDS: ACETAMINOPHEN TAB 325 MG TAB PO PRN ×5 (00:38→20:56)
[2021-08-15] MEDS: LEVOTHYROXINE 50 MCG TAB PO SCH (06:17)
[2021-08-15 06:53] LABS: Glucose,Whole Blood 253 mg/dL (75-99)
[2021-08-15] MEDS: HEPARIN SODIUM,PORCINE/PF 5,000 UNIT/0.5 ML SYRINGE SQ SCH ×2 (08:06→20:54)
[2021-08-15] MEDS: INSULIN DETEMIR (LEVEMIR) 100 UNIT/ML SYR SQ SCH (08:06)
[2021-08-15] MEDS: INSULIN ASPART (NovoLOG) 100 UNIT/ML VIAL SQ SCH ×4 (08:06→20:54)
[2021-08-15] MEDS: PRIMIDONE 50 MG TAB PO SCH ×2 (08:07→20:53)
[2021-08-15] MEDS: SERTRALINE 100 MG TAB PO SCH ×2 (08:07→20:54)
[2021-08-15] MEDS: TAMSULOSIN 0.4 MG CAP.ER.24H PO SCH ×3 (08:07→20:54)
[2021-08-15] MEDS: GABAPENTIN 300 MG CAP PO SCH ×2 (08:07→20:54)
[2021-08-15] MEDS: CHOLECALCIFEROL 25 MCG (1000 IU) TABLET PO SCH (08:08)
[2021-08-15] MEDS: ASPIRIN 81 MG PO SCH (08:08)
[2021-08-15] MEDS: FAMOTIDINE 20 MG TAB PO SCH (08:08)
[2021-08-15] MEDS: MULTIVITAMINS, THERA 1 EACH TAB PO SCH (08:08)
[2021-08-15] MEDS: SODIUM CHLORIDE 0.9% 1,000 ML IV SCH ×3 (08:09→20:45)
[2021-08-15] MEDS: oxyCODONE-APAP 7.5-325MG 1 EACH TAB PO SCH ×2 (08:10→20:55)
[2021-08-15] MEDS: ALBUTEROL NEBULIZED 2.5 MG/3 ML INHALATION SCH ×4 (08:22→19:49)
[2021-08-15 12:24] VITALS: BMI 26.4
[2021-08-15 12:33] LABS: Glucose,Whole Blood 277 mg/dL (75-99)
[2021-08-15] MEDS: ALPRAZolam 0.25 MG TAB PO PRN ×2 (14:44→20:59)
--- NOTE | 2021-08-15 15:31 | P.PN ---
Subjective Patient is a pleasant 81-year-old male came in with the complaints of cough unable to bring up anything fever chills leukocytosis. Patient is tested negative for Covid 19. Patient also found to have elevated creatinine of around 2.4 was started on IV fluids. Patient does have diarrhea which started about 2 days ago his cough and shortness of breath started about 5 days ago. 08/15/2021 Patient is still having high-grade fevers can you with present antibiotics for her to monitor and infectious disease will be consulted. Constitutional: Denied any fatigue denied any fever. Cardio vascular: denied any chest pain, palpitations Gastrointestinal denied any nausea vomiting Pulmonary: Denied any shortness of breath cough Neurologic denied any new focal deficits All inpatient medications were reviewed and appropriate changes in these medi cations as dictated in the interval history and assessment and plan. PHYSICAL EXAMINATION: GENERAL: The patient is alert and oriented x3, not in any acute distress. HEENT: Pupils are round and equally reacting to light. EOMI. No scleral icterus. No conjunctival pallor. Normocephalic, atraumatic. No pharyngeal erythema. No thyromegaly. CARDIOVASCULAR: S1 and S2 present. No murmurs, rubs, or gallops. PULMONARY: Diffuse bilateral rhonchi ABDOMEN: Soft, nontender, nondistended, normoactive bowel sounds. No palpable organomegaly. MUSCULOSKELETAL: No joint swelling or deformity. EXTREMITIES: No cyanosis, clubbing, or pedal edema. NEUROLOGICAL: Gross neurological examination did not reveal any focal deficits. SKIN: No rashes. Assessment and plan -Sepsis most probably finger left lower lobe pneumonia, patient will be continued on Rocephin and azithromycin -Diarrhea secondary to infection will rule out C. diff continue with IV fluids -Acute renal failure on chronic kidney disease stage III acute renal failure secondary to prerenal azotemia from diarrhea, patient will be continue on IV fluids as mentioned above. 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 DVT prophylaxis: Subcutaneous heparin Objective - Vital Signs Vital signs: Vital Signs Temp 100.0 F H 08/15/21 14:49 Pulse 104 H 08/15/21 14:49 Resp 18 08/15/21 14:49 BP 143/72 08/15/21 07:49 Pulse Ox 95 08/15/21 14:49 Intake & Output 08/14/21 08/15/21 08/15/21 18:59 06:59 18:59 Intake Total 1300 Balance 1300 Weight 76.657 kg 76.657 kg Intake: Intake, IV Titration 1300 Amount Azithromycin 500 mg In 250 Sodium Chloride 0.9% 250 ml @ 250 mls/hr IVPB ONCE STA Rx#:[id number] Sodium Chloride 0.9% 1, 1000 000 ml @ 100 mls/hr IV . Q10H [facility] Rx#:[id number] cefTRIAXone 2 gm In 50 Sodium Chloride 0.9% 50 ml @ 100 mls/hr IVPB Q24HR [facility] Rx#:[id number] Other: # Voids 2 3 - Labs CBC & Chem 7: 08/14/21 07:44 08/14/21 07:44 Labs: Abnormal Lab Results - Last 24 Hours (Table) 08/14/21 08/14/21 08/15/21 Range/Units 17:50 21:03 06:52 POC Glucose (mg/dL) 316 H 315 H 253 H (75-99) mg/dL 08/15/21 Range/Units 12:31 POC Glucose (mg/dL) 277 H (75-99) mg/dL Microbiology - Last 24 Hours (Table) 08/13/21 20:14 Blood Culture - Preliminary Blood No Growth after 24 hours
[2021-08-15] MEDS: guaiFENesin-DM 100-10MG/5ML 10 ML CUP PO PRN (16:36)
[2021-08-15 16:39] LABS: Glucose,Whole Blood 134 mg/dL (75-99)
[2021-08-15 20:29] LABS: Glucose,Whole Blood 185 mg/dL (75-99)
[2021-08-15] MEDS: ATORVASTATIN 40 MG TAB PO SCH (20:54)
[2021-08-15] MEDS: AZITHROMYCIN 500 MG TAB PO SCH (22:42)
[2021-08-16] MEDS: ACETAMINOPHEN TAB 325 MG TAB PO PRN ×3 (03:10→16:31)
[2021-08-16] MEDS: LEVOTHYROXINE 50 MCG TAB PO SCH (05:54)
[2021-08-16 07:36] LABS: Glucose,Whole Blood 137 mg/dL (75-99)
[2021-08-16] MEDS: ALBUTEROL NEBULIZED 2.5 MG/3 ML INHALATION SCH ×4 (07:58→19:28)
[2021-08-16] MEDS: INSULIN ASPART (NovoLOG) 100 UNIT/ML VIAL SQ SCH ×4 (08:18→21:57)
[2021-08-16] MEDS: INSULIN DETEMIR (LEVEMIR) 100 UNIT/ML SYR SQ SCH (08:31)
[2021-08-16] MEDS: oxyCODONE-APAP 7.5-325MG 1 EACH TAB PO SCH ×2 (08:32→21:54)
[2021-08-16] MEDS: GABAPENTIN 300 MG CAP PO SCH ×2 (08:32→21:58)
[2021-08-16] MEDS: PRIMIDONE 50 MG TAB PO SCH ×2 (08:32→21:54)
[2021-08-16] MEDS: HEPARIN SODIUM,PORCINE/PF 5,000 UNIT/0.5 ML SYRINGE SQ SCH ×2 (08:32→21:54)
[2021-08-16] MEDS: FAMOTIDINE 20 MG TAB PO SCH (08:32)
[2021-08-16] MEDS: ASPIRIN 81 MG PO SCH (08:33)
[2021-08-16] MEDS: MULTIVITAMINS, THERA 1 EACH TAB PO SCH (08:33)
[2021-08-16] MEDS: TAMSULOSIN 0.4 MG CAP.ER.24H PO SCH ×3 (08:33→21:54)
[2021-08-16] MEDS: SERTRALINE 100 MG TAB PO SCH ×2 (08:33→21:54)
[2021-08-16] MEDS: CHOLECALCIFEROL 25 MCG (1000 IU) TABLET PO SCH (08:33)
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
[2021-08-16] MEDS: ALPRAZolam 0.25 MG TAB PO PRN (09:49)
[2021-08-16] MEDS: PIPERACILLIN-TAZOBACTAM 3.375 GM in SODIUM CHLORIDE 0.9% 100 ML IVPB SCH ×3 (09:52→23:40)
[2021-08-16 09:54] LABS: African American GFR (CKD) 29.3 (60.0-200.0); BUN/Creat Ratio 12.09 Ratio (12.00-20.00); Blood Urea Nitrogen 27.8 mg/dL (9.0-27.0); Calcium 8.2 mg/dL (8.7-10.3); Non-African American GFR(CKD) 25.3 (60.0-200.0); Potassium 3.5 mmol/L (3.5-5.5)
[2021-08-16 10:40] LABS: HCT 34.2 % (39.6-50.0); HGB 11.4 g/dL (13.0-17.0); MCH 34.2 pg (27.0-32.0); MCHC 33.3 g/dL (32.0-37.0); MCV 102.7 fL (80.0-97.0); Mean Platelet Volume 13.5 fL (9.5-12.2); Platelet Count 182 X 10*3/uL (140-440); RBC 3.33 X 10*6/uL (4.40-5.60); RDW 13.1 % (11.5-14.5); WBC 9.28 X 10*3/uL (4.50-10.00)
[2021-08-16 11:35] LABS: Glucose,Whole Blood 161 mg/dL (75-99)
[2021-08-16] MEDS ORDERED: oxyCODONE-APAP 7.5-325MG 1 EACH TAB PO ONE (12:45)
[2021-08-16] MEDS ORDERED: GABAPENTIN 300 MG CAP PO ONE (12:45)
--- NOTE | 2021-08-16 13:59 | P.PN ---
Subjective Patient is a pleasant 81-year-old male came in with the complaints of cough unable to bring up anything fever chills leukocytosis. Patient is tested negative for Covid 19. Patient also found to have elevated creatinine of around 2.4 was started on IV fluids. Patient does have diarrhea which started about 2 days ago his cough and shortness of breath started about 5 days ago. 08/15/2021 Patient is still having high-grade fevers can you with present antibiotics for her to monitor and infectious disease will be consulted. 08/16/2021 Patient respiratory status is improving although patient believes he is the same. Patient is saturating well on 3 L today his oxygen requirements have come down patient continues to have diffuse bilateral rhonchi patient is asking something for anxiety patient is already on twice a day Xanax as-needed basis for anxiety. Patient was switched to Zosyn. White blood cell count improved and now normalized. Patient was evaluated by infectious disease bronchitis is still pending blood cultures are so far negative. Constitutional: Denied any fatigue denied any fever. Cardio vascular: denied any chest pain, palpitations Gastrointestinal denied any nausea vomiting Pulmonary: He is to have significant shortness of breath Neurologic denied any new focal deficits All inpatient medications were reviewed and appropriate changes in these medications as dictated in the interval history and assessment and plan. PHYSICAL EXAMINATION: GENERAL: The patient is alert and oriented x3, not in any acute distress. HEENT: Pupils are round and equally reacting to light. EOMI. No scleral icterus. No conjunctival pallor. Normocephalic, atraumatic. No pharyngeal erythema. No thyromegaly. CARDIOVASCULAR: S1 and S2 present. No murmurs, rubs, or gallops. PULMONARY: Diffuse bilateral rhonchi ABDOMEN: Soft, nontender, nondistended, normoactive bowel sounds. No palpable organomegaly. MUSCULOSKELETAL: No joint swelling or deformity. EXTREMITIES: No cyanosis, clubbing, or pedal edema. NEUROLOGICAL: Gross neurological examination did not reveal any focal deficits. SKIN: No rashes. Assessment and plan -Sepsis scondary left lower lobe pneumonia, patient was switched to Zosyn which will be continued and patient is also on azithromycin. Patient last fevers were yesterday evening. -Diarrhea secondary to infection, diarrhea at this time -Acute renal failure on chronic kidney disease stage III acute renal failure secondary to prerenal azotemia from diarrhea, patient will be continue on IV fluids as mentioned above. 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 DVT prophylaxis: Subcutaneous heparin Objective - Vital Signs Vital signs: Vital Signs Temp 98.8 F 08/16/21 13:57 Pulse 97 08/16/21 13:57 Resp 17 08/16/21 13:57 BP 130/69 08/16/21 13:57 Pulse Ox 97 08/16/21 13:57 Intake & Output 08/15/21 08/16/21 08/16/21 18:59 06:59 18:59 Weight 76.657 kg Other: # Voids 2 3 # Bowel Movements 1 - Labs CBC & Chem 7: 08/16/21 03:42 08/16/21 03:41 Labs: Abnormal Lab Results - Last 24 Hours (Table) 08/15/21 08/15/21 08/16/21 Range/Units 16:38 20:27 03:41 RBC (4.40-5.60) X 10*6/uL Hgb (13.0-17.0) g/dL Hct (39.6-50.0) % MCV (80.0-97.0) fL MCH (27.0-32.0) pg MPV (9.5-12.2) fL Carbon Dioxide 17.0 L (20.0-27.5) mmol/L BUN 27.8 H (9.0-27.0) mg/dL Creatinine 2.3 H (0.6-1.5) mg/dL Est GFR (CKD-EPI)AfAm 29.3 L (60.0-200.0) Est GFR (CKD-EPI)NonAf 25.3 L (60.0-200.0) Glucose 141 H (70-110) mg/dL POC Glucose (mg/dL) 134 H 185 H (75-99) mg/dL Calcium 8.2 L (8.7-10.3) mg/dL 08/16/21 08/16/21 08/16/21 Range/Units 03:42 07:35 11:33 RBC 3.33 L (4.40-5.60) X 10*6/uL Hgb 11.4 L (13.0-17.0) g/dL Hct 34.2 L (39.6-50.0) % MCV 102.7 H (80.0-97.0) fL MCH 34.2 H (27.0-32.0) pg MPV 13.5 H (9.5-12.2) fL Carbon Dioxide (20.0-27.5) mmol/L BUN (9.0-27.0) mg/dL Creatinine (0.6-1.5) mg/dL Est GFR (CKD-EPI)AfAm (60.0-200.0) Est GFR (CKD-EPI)NonAf (60.0-200.0) Glucose (70-110) mg/dL POC Glucose (mg/dL) 137 H 161 H (75-99) mg/dL Calcium (8.7-10.3) mg/dL Microbiology - Last 24 Hours (Table) 08/13/21 20:14 Blood Culture - Preliminary Blood No Growth after 48 hours
[2021-08-16] MEDS: SODIUM CHLORIDE 0.9% 1,000 ML IV SCH (15:10)
[2021-08-16 16:33] LABS: Glucose,Whole Blood 154 mg/dL (75-99)
[2021-08-16 20:53] LABS: Glucose,Whole Blood 203 mg/dL (75-99)
--- NOTE | 2021-08-16 21:48 | PN ---
PROGRESS NOTE DATE OF SERVICE: 08/16/2021 REASON FOR FOLLOWUP: Pneumonia. INTERVAL HISTORY: The patient's overall fever pattern has improved. Last temperature was last evening. The patient is feeling slightly better, though. Patient denies having any chest pain. He did have a cough, not bringing up any sputum. No abdominal pain or diarrhea. PHYSICAL EXAMINATION: Blood pressure 130/69, pulse of 97, temperature 98.8. He is 97% on 3 L nasal cannula. General description is an elderly male up in the bed in no distress. Respiratory system: Unlabored breathing, coarse breath sounds at the base. No wheeze. Heart S1, S2. Regular rate and rhythm. Abdomen soft, no tenderness. LABS: White count normalized to 9.28, creatinine is 2.3. DIAGNOSTIC IMPRESSION AND PLAN: Patient admitted to hospital with sepsis with a fever, elevated white count concerning for a left lower lobe pneumonia, possible Gram-negative or aspiration. Patient's fever is responding to the Zosyn. That will be continued. Will try to obtain a sputum sample to narrow down his antibiotics and continue supportive care. MMODL / IJN: [id number] /
[2021-08-16] MEDS: guaiFENesin-DM 100-10MG/5ML 10 ML CUP PO PRN (21:53)
[2021-08-16] MEDS: ATORVASTATIN 40 MG TAB PO SCH (21:53)
[2021-08-17] MEDS: SODIUM CHLORIDE 0.9% 1,000 ML IV SCH ×2 (03:19→21:31)
[2021-08-17] MEDS: guaiFENesin-DM 100-10MG/5ML 10 ML CUP PO PRN ×3 (04:13→21:28)
[2021-08-17] MEDS: LEVOTHYROXINE 50 MCG TAB PO SCH (05:58)
[2021-08-17 07:13] LABS: Glucose,Whole Blood 142 mg/dL (75-99)
[2021-08-17 07:33] LABS: African American GFR (CKD) 27 (>60 ml/min/1.73 sqM); Anion Gap 13 mmol/L; Blood Urea Nitrogen 28 mg/dL (9-20); Calcium 8.7 mg/dL (8.4-10.2); Carbon Dioxide 16 mmol/L (22-30); Chloride 109 mmol/L (98-107); Glucose 146 mg/dL (74-99); Non-African American GFR(CKD) 24 (>60 ml/min/1.73 sqM); Sodium 138 mmol/L (137-145)
[2021-08-17 07:56] LABS: Potassium 4.5 mmol/L (3.5-5.1)
[2021-08-17] MEDS: INSULIN DETEMIR (LEVEMIR) 100 UNIT/ML SYR SQ SCH (08:11)
[2021-08-17] MEDS: INSULIN ASPART (NovoLOG) 100 UNIT/ML VIAL SQ SCH ×4 (08:11→21:30)
[2021-08-17] MEDS: PRIMIDONE 50 MG TAB PO SCH ×2 (08:12→21:28)
[2021-08-17] MEDS: ACETAMINOPHEN TAB 325 MG TAB PO PRN (08:12)
[2021-08-17] MEDS: GABAPENTIN 300 MG CAP PO SCH ×2 (08:12→21:29)
[2021-08-17] MEDS: ASPIRIN 81 MG PO SCH (08:13)
[2021-08-17] MEDS: TAMSULOSIN 0.4 MG CAP.ER.24H PO SCH ×3 (08:13→21:29)
[2021-08-17] MEDS: SERTRALINE 100 MG TAB PO SCH ×2 (08:13→21:29)
[2021-08-17] MEDS: oxyCODONE-APAP 7.5-325MG 1 EACH TAB PO SCH ×2 (08:13→21:29)
[2021-08-17] MEDS: HEPARIN SODIUM,PORCINE/PF 5,000 UNIT/0.5 ML SYRINGE SQ SCH ×2 (08:14→21:30)
[2021-08-17] MEDS: CHOLECALCIFEROL 25 MCG (1000 IU) TABLET PO SCH (08:14)
[2021-08-17] MEDS: MULTIVITAMINS, THERA 1 EACH TAB PO SCH (08:14)
[2021-08-17] MEDS: FAMOTIDINE 20 MG TAB PO SCH (08:14)
[2021-08-17] MEDS: ALBUTEROL NEBULIZED 2.5 MG/3 ML INHALATION SCH ×4 (08:15→20:04)
[2021-08-17] MEDS: PIPERACILLIN-TAZOBACTAM 3.375 GM in SODIUM CHLORIDE 0.9% 100 ML IVPB SCH ×3 (08:15→17:32)
[2021-08-17 09:30] LABS: HCT 37.9 % (39.0-53.0); HGB 12.6 gm/dL (13.0-17.5); MCH 33.6 pg (25.0-35.0); MCHC 33.1 g/dL (31.0-37.0); MCV 101.3 fL (80.0-100.0); Mean Platelet Volume 10.4; Platelet Count 227 k/uL (150-450); Poikilocytosis Slight; RBC 3.74 m/uL (4.30-5.90); RDW 13.4 % (11.5-15.5); WBC 13.4 k/uL (3.8-10.6)
[2021-08-17 11:38] LABS: Glucose,Whole Blood 157 mg/dL (75-99)
--- NOTE | 2021-08-17 14:12 | P.PN ---
Subjective Patient is a pleasant 81-year-old male came in with the complaints of cough unable to bring up anything fever chills leukocytosis. Patient is tested negative for Covid 19. Patient also found to have elevated creatinine of around 2.4 was started on IV fluids. Patient does have diarrhea which started about 2 days ago his cough and shortness of breath started about 5 days ago. 08/15/2021 Patient is still having high-grade fevers can you with present antibiotics for her to monitor and infectious disease will be consulted. 08/16/2021 Patient respiratory status is improving although patient believes he is the same. Patient is saturating well on 3 L today his oxygen requirements have come down patient continues to have diffuse bilateral rhonchi patient is asking something for anxiety patient is already on twice a day Xanax as-needed basis for anxiety. Patient was switched to Zosyn. White blood cell count improved and now normalized. Patient was evaluated by infectious disease bronchitis is still pending blood cultures are so far negative. 08/17/2021 So far all the cultures are negative patient clinically looks well although his white blood cell count went up today. Patient also requirements have gone down his rhonchi and bilateral lung raphael improved. Fever resolved. Creatinine remains stable patient probably has chronic kidney disease IV fluids will be discontinued. Constitutional: Denied any fatigue denied any fever. Cardio vascular: denied any chest pain, palpitations Gastrointestinal denied any nausea vomiting Pulmonary: He is to have significant shortness of breath Neurologic denied any new focal deficits All inpatient medications were reviewed and appropriate changes in these medications as dictated in the interval history and assessment and plan. PHYSICAL EXAMINATION: GENERAL: The patient is alert and oriented x3, not in any acute distress. HEENT: Pupils are round and equally reacting to light. EOMI. No scleral icterus. No conjunctival pallor. Normocephalic, atraumatic. No pharyngeal erythema. No thyromegaly. CARDIOVASCULAR: S1 and S2 present. No murmurs, rubs, or gallops. PULMONARY: Diffuse bilateral rhonchi ABDOMEN: Soft, nontender, nondistended, normoactive bowel sounds. No palpable organomegaly. MUSCULOSKELETAL: No joint swelling or deformity. EXTREMITIES: No cyanosis, clubbing, or pedal edema. NEUROLOGICAL: Gross neurological examination did not reveal any focal deficits. SKIN: No rashes. Assessment and plan -Sepsis scondary left lower lobe pneumonia, patient was switched to Zosyn which will be continued and patient is also on azithromycin. He was resolved patient is much better today clinically except for what elevated red blood cell count -Diarrhea secondary to infection, diarrhea resolved at this time -Acute renal failure on chronic kidney disease stage III acute renal failure secondary to prerenal azotemia from diarrhea, patient will be continue on IV fluids as mentioned above. 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 DVT prophylaxis: Subcutaneous heparin Objective - Vital Signs Vital signs: Vital Signs Temp 98.7 F 08/17/21 08:30 Pulse 100 08/17/21 12:29 Resp 18 08/17/21 08:30 BP 161/81 08/17/21 08:30 Pulse Ox 92 L 08/17/21 08:30 Intake & Output 08/16/21 08/17/21 08/17/21 18:59 06:59 18:59 Other: # Voids 3 3 - Labs CBC & Chem 7: 08/17/21 08:37 08/17/21 06:19 Labs: Abnormal Lab Results - Last 24 Hours (Table) 08/16/21 08/16/21 08/17/21 Range/Units 16:32 20:48 06:19 WBC (3.8-10.6) k/uL RBC (4.30-5.90) m/uL Hgb (13.0-17.5) gm/dL Hct (39.0-53.0) % MCV (80.0-100.0) fL Chloride 109 H (98-107) mmol/L Carbon Dioxide 16 L (22-30) mmol/L BUN 28 H (9-20) mg/dL Creatinine 2.43 H (0.66-1.25) mg/dL Glucose 146 H (74-99) mg/dL POC Glucose (mg/dL) 154 H 203 H (75-99) mg/dL 08/17/21 08/17/21 08/17/21 Range/Units 07:12 08:37 11:37 WBC 13.4 H (3.8-10.6) k/uL RBC 3.74 L (4.30-5.90) m/uL Hgb 12.6 L (13.0-17.5) gm/dL Hct 37.9 L (39.0-53.0) % MCV 101.3 H (80.0-100.0) fL Chloride (98-107) mmol/L Carbon Dioxide (22-30) mmol/L BUN (9-20) mg/dL Creatinine (0.66-1.25) mg/dL Glucose (74-99) mg/dL POC Glucose (mg/dL) 142 H 157 H (75-99) mg/dL Microbiology - Last 24 Hours (Table) 08/13/21 20:14 Blood Culture - Preliminary Blood No Growth after 72 hours
[2021-08-17 16:22] LABS: Glucose,Whole Blood 206 mg/dL (75-99)
[2021-08-17 20:23] LABS: Glucose,Whole Blood 220 mg/dL (75-99)
[2021-08-17] MEDS: ALPRAZolam 0.25 MG TAB PO PRN (20:48)
[2021-08-17] MEDS: ATORVASTATIN 40 MG TAB PO SCH (21:29)
--- NOTE | 2021-08-17 22:36 | PN ---
PROGRESS NOTE DATE OF SERVICE: 08/17/2021 REASON FOR FOLLOWUP: Pneumonia. INTERVAL HISTORY: Patient is afebrile. The patient is breathing more comfortably. Patient denies having any chest pain. He did have a cough, not bringing up any sputum. No abdominal pain or diarrhea. PHYSICAL EXAMINATION: Blood pressure 111/60 with a pulse of 94. Temperature is 97.7. He is 92% on room air. General description is a middle-aged male up in the chair in no distress. Respiratory system: Unlabored breathing, coarse breath sounds bilaterally. No wheeze. Heart S1, S2. Regular rate and rhythm. LABS: Hemoglobin is 12.8, white count 13.4, BUN of 28, creatinine is up to 2.43. DIAGNOSTIC IMPRESSION AND PLAN: Patient admitted to hospital with sepsis, source likely pneumonia, question of possible aspiration or gram-negative. The patient clinically responding to the Zosyn. Will try to obtain a sputum to narrow down his antibiotics. Continue Zosyn. Repeat x-ray tomorrow. Continue supportive care. MMODL / IJN: [id number] /
[2021-08-18] MEDS: PIPERACILLIN-TAZOBACTAM 3.375 GM in SODIUM CHLORIDE 0.9% 100 ML IVPB SCH ×4 (00:28→22:43)
[2021-08-18] MEDS: LEVOTHYROXINE 50 MCG TAB PO SCH (05:52)
[2021-08-18 07:41] LABS: Glucose,Whole Blood 170 mg/dL (75-99)
--- NOTE | 2021-08-18 08:12 | XR ---
EXAMINATION TYPE: XR chest 2V DATE OF EXAM: 08/18/2021 COMPARISON: 08/13/2021 INDICATION: Pneumonia TECHNIQUE: Frontal and lateral views of the chest are obtained. FINDINGS: The heart size is normal. The pulmonary vasculature is normal. Bibasilar infiltrates are present. Findings are worsening over the interval. IMPRESSION: 1. Worsening bibasilar infiltrates. Continued follow-up is recommended
[2021-08-18] MEDS: ALBUTEROL NEBULIZED 2.5 MG/3 ML INHALATION SCH (08:32)
[2021-08-18] MEDS: INSULIN DETEMIR (LEVEMIR) 100 UNIT/ML SYR SQ SCH (09:20)
[2021-08-18] MEDS: HEPARIN SODIUM,PORCINE/PF 5,000 UNIT/0.5 ML SYRINGE SQ SCH ×2 (09:20→20:29)
[2021-08-18] MEDS: INSULIN ASPART (NovoLOG) 100 UNIT/ML VIAL SQ SCH ×4 (09:20→20:30)
[2021-08-18] MEDS: PRIMIDONE 50 MG TAB PO SCH ×2 (09:21→20:30)
[2021-08-18] MEDS: TAMSULOSIN 0.4 MG CAP.ER.24H PO SCH ×3 (09:21→20:32)
[2021-08-18] MEDS: MULTIVITAMINS, THERA 1 EACH TAB PO SCH (09:21)
[2021-08-18] MEDS: oxyCODONE-APAP 7.5-325MG 1 EACH TAB PO SCH ×2 (09:22→20:30)
[2021-08-18] MEDS: SERTRALINE 100 MG TAB PO SCH ×2 (09:23→20:32)
[2021-08-18] MEDS: ASPIRIN 81 MG PO SCH (09:23)
[2021-08-18] MEDS: FAMOTIDINE 20 MG TAB PO SCH (09:23)
[2021-08-18] MEDS: CHOLECALCIFEROL 25 MCG (1000 IU) TABLET PO SCH (09:24)
[2021-08-18] MEDS: GABAPENTIN 300 MG CAP PO SCH ×2 (09:29→20:30)
[2021-08-18] MEDS ORDERED: FUROSEMIDE 10 MG/ML 4 ML VIAL IV STA (11:39)
--- NOTE | 2021-08-18 11:39 | P.PN ---
Subjective Patient is a pleasant 81-year-old male came in with the complaints of cough unable to bring up anything fever chills leukocytosis. Patient is tested negative for Covid 19. Patient also found to have elevated creatinine of around 2.4 was started on IV fluids. Patient does have diarrhea which started about 2 days ago his cough and shortness of breath started about 5 days ago. 08/15/2021 Patient is still having high-grade fevers can you with present antibiotics for her to monitor and infectious disease will be consulted. 08/16/2021 Patient respiratory status is improving although patient believes he is the same. Patient is saturating well on 3 L today his oxygen requirements have come down patient continues to have diffuse bilateral rhonchi patient is asking something for anxiety patient is already on twice a day Xanax as-needed basis for anxiety. Patient was switched to Zosyn. White blood cell count improved and now normalized. Patient was evaluated by infectious disease bronchitis is still pending blood cultures are so far negative. 08/17/2021 So far all the cultures are negative patient clinically looks well although his white blood cell count went up today. Patient also requirements have gone down his rhonchi and bilateral lung raphael improved. Fever resolved. Creatinine remains stable patient probably has chronic kidney disease IV fluids will be discontinued. 08/18/2021 Patient is admitted x-ray wheezing on exam can be cardiac asthma chest x-ray showing increasing infiltrate patient will be given a dose of Lasix. Patient doesn't have any history of COPD had remote history of smoking. Patient will also be started on Pulmicort and scheduled albuterol and ipratropium treatments BNP will be ordered. Patient the overall respiratory status although improved significantly and patient is saturating 97% on 3 L which will be weaned off today possibility of discharge tomorrow on oral antibiotics. Constitutional: Denied any fatigue denied any fever. Cardio vascular: denied any chest pain, palpitations Gastrointestinal denied any nausea vomiting Pulmonary: He is to have significant shortness of breath Neurologic denied any new focal deficits All inpatient medications were reviewed and appropriate changes in these medications as dictated in the interval history and assessment and plan. PHYSICAL EXAMINATION: GENERAL: The patient is alert and oriented x3, not in any acute distress. HEENT: Pupils are round and equally reacting to light. EOMI. No scleral icterus. No conjunctival pallor. Normocephalic, atraumatic. No pharyngeal erythema. No thyromegaly. CARDIOVASCULAR: S1 and S2 present. No murmurs, rubs, or gallops. PULMONARY: Diffuse bilateral rhonchi and expiratory wheezing ABDOMEN: Soft, nontender, nondistended, normoactive bowel sounds. No palpable organomegaly. MUSCULOSKELETAL: No joint swelling or deformity. EXTREMITIES: No cyanosis, clubbing, or pedal edema. NEUROLOGICAL: Gross neurological examination did not reveal any focal deficits. SKIN: No rashes. Assessment and plan -Sepsis scondary left lower lobe pneumonia, patient was switched to Zosyn which will be continued and patient is also on azithromycin. He was resolved patient is much better today clinically except for what elevated red blood cell count -Diarrhea secondary to infection, diarrhea resolved at this time -Acute renal failure on chronic kidney disease stage III - diabetes nephropathy -Type 2 diabetes mellitus: Patient will be resumed on his home regimen along with sliding scale insulin titration depending on his blood sugars -Hypertension -Hyperlipidemia - hypothyroidism -Depression -History of colon cancer status post resection in remission since then -Obstructive sleep apnea uses CPAP machine at home. DVT prophylaxis: Subcutaneous heparin Objective - Vital Signs Vital signs: Vital Signs Temp 98.4 F 08/18/21 07:54 Pulse 100 08/18/21 09:16 Resp 18 08/18/21 09:16 BP 148/69 08/18/21 07:54 Pulse Ox 97 08/18/21 08:33 Intake & Output 08/17/21 08/18/21 08/18/21 18:59 06:59 18:59 Intake Total 1172 Balance 1172 Intake: Intake, IV Titration 700 Amount Piperacillin-Tazobactam 3 100 .375 gm In Sodium Chloride 0.9% 100 ml @ 25 mls/hr IVPB Q8HR [facility] Rx# :[id number] Sodium Chloride 0.9% 1, 600 000 ml @ 100 mls/hr IV . Q10H [facility] Rx#:[id number] Oral 472 Other: # Voids 3 3 - Labs CBC & Chem 7: 08/17/21 08:37 08/17/21 06:19 Labs: Abnormal Lab Results - Last 24 Hours (Table) 08/17/21 08/17/21 08/17/21 Range/Units 11:37 16:21 20:21 POC Glucose (mg/dL) 157 H 206 H 220 H (75-99) mg/dL 08/18/21 Range/Units 07:40 POC Glucose (mg/dL) 170 H (75-99) mg/dL Microbiology - Last 24 Hours (Table) 08/13/21 20:14 Blood Culture - Preliminary Blood No Growth after 96 hours
[2021-08-18 12:23] LABS: Glucose,Whole Blood 270 mg/dL (75-99)
[2021-08-18] MEDS: IPRATROPIUM-ALBUTEROL 3 ML NEB INHALATION SCH ×3 (12:40→19:25)
[2021-08-18] MEDS: guaiFENesin-DM 100-10MG/5ML 10 ML CUP PO PRN ×2 (13:18→20:16)
[2021-08-18 16:47] LABS: Glucose,Whole Blood 76 mg/dL (75-99)
[2021-08-18] MEDS: BUDESONIDE 0.5 MG/2 ML NEBU INHALATION SCH (19:25)
[2021-08-18 20:10] LABS: Glucose,Whole Blood 162 mg/dL (75-99)
[2021-08-18] MEDS: ALPRAZolam 0.25 MG TAB PO PRN (20:30)
[2021-08-18] MEDS: ATORVASTATIN 40 MG TAB PO SCH (20:32)
--- NOTE | 2021-08-18 22:35 | PN ---
PROGRESS NOTE DATE OF SERVICE: 08/18/2021 REASON FOR FOLLOWUP: Pneumonia. INTERVAL HISTORY: The patient is afebrile. The patient is breathing more comfortably. The patient denies having any chest pain. He did have a cough; not bringing up any sputum, though. No nausea, no vomiting. No abdominal pain or diarrhea. PHYSICAL EXAMINATION: Blood pressure 177/84 with a pulse of 90, temperature 98.5. He is 90% on 3 L nasal cannula. General description is an elderly male up in the chair in no distress. Respiratory system: Unlabored breathing, coarse breath sounds bilaterally. No wheeze. Heart S1, S2. Regular rate and rhythm. Abdomen soft, no tenderness. LABS: No new labs have been obtained today. Chest x-ray shows slight worsening. DIAGNOSTIC IMPRESSION AND PLAN: Patient admitted to hospital with pneumonia. The patient's fever has resolved and he seems to be seemed to be clinically improving. X-ray shows slight worsening; to be monitored closely. Continue Zosyn. Try to obtain a sputum sample to narrow down the antibiotics. Continue with supportive care. MMODL / IJN: [id number] /
[2021-08-19] MEDS: LEVOTHYROXINE 50 MCG TAB PO SCH (05:11)
[2021-08-19] MEDS: guaiFENesin-DM 100-10MG/5ML 10 ML CUP PO PRN ×3 (05:11→21:20)
[2021-08-19 07:22] LABS: Glucose,Whole Blood 168 mg/dL (75-99)
[2021-08-19] MEDS: PRIMIDONE 50 MG TAB PO SCH ×2 (07:35→21:19)
[2021-08-19] MEDS: MULTIVITAMINS, THERA 1 EACH TAB PO SCH (07:35)
[2021-08-19] MEDS: CHOLECALCIFEROL 25 MCG (1000 IU) TABLET PO SCH (07:36)
[2021-08-19] MEDS: oxyCODONE-APAP 7.5-325MG 1 EACH TAB PO SCH ×2 (07:36→21:19)
[2021-08-19] MEDS: TAMSULOSIN 0.4 MG CAP.ER.24H PO SCH ×3 (07:36→22:03)
[2021-08-19] MEDS: SERTRALINE 100 MG TAB PO SCH ×2 (07:36→21:20)
[2021-08-19] MEDS: FAMOTIDINE 20 MG TAB PO SCH (07:36)
[2021-08-19] MEDS: ASPIRIN 81 MG PO SCH (07:36)
[2021-08-19] MEDS: GABAPENTIN 300 MG CAP PO SCH ×2 (07:36→21:18)
[2021-08-19] MEDS: INSULIN DETEMIR (LEVEMIR) 100 UNIT/ML SYR SQ SCH (07:37)
[2021-08-19] MEDS: HEPARIN SODIUM,PORCINE/PF 5,000 UNIT/0.5 ML SYRINGE SQ SCH ×2 (07:37→21:18)
[2021-08-19] MEDS: PIPERACILLIN-TAZOBACTAM 3.375 GM in SODIUM CHLORIDE 0.9% 100 ML IVPB SCH ×2 (07:37→17:28)
[2021-08-19] MEDS: INSULIN ASPART (NovoLOG) 100 UNIT/ML VIAL SQ SCH ×4 (07:37→21:19)
[2021-08-19] MEDS: BUDESONIDE 0.5 MG/2 ML NEBU INHALATION SCH ×2 (08:54→19:40)
[2021-08-19] MEDS: IPRATROPIUM-ALBUTEROL 3 ML NEB INHALATION SCH ×4 (08:54→19:40)
[2021-08-19 09:50] LABS: HCT 29.7 % (39.6-50.0); MCH 33.7 pg (27.0-32.0); MCHC 33.7 g/dL (32.0-37.0); Mean Platelet Volume 12.9 fL (9.5-12.2); Platelet Count 257 X 10*3/uL (140-440); RBC 2.97 X 10*6/uL (4.40-5.60); RDW 13.9 % (11.5-14.5); WBC 10.06 X 10*3/uL (4.50-10.00)
[2021-08-19 10:44] LABS: African American GFR (CKD) 16.6 (60.0-200.0); Anion Gap 17.6 mmol/L (10.00-18.00); BUN/Creat Ratio 8.59 Ratio (12.00-20.00); Blood Urea Nitrogen 31.7 mg/dL (9.0-27.0); Calcium 8.3 mg/dL (8.7-10.3); Carbon Dioxide 18.4 mmol/L (20.0-27.5); Non-African American GFR(CKD) 14.3 (60.0-200.0); Potassium 4.1 mmol/L (3.5-5.5)
[2021-08-19 11:47] LABS: Glucose,Whole Blood 191 mg/dL (75-99)
[2021-08-19 14:42] LABS: Glucose,Whole Blood 79 mg/dL (75-99)
[2021-08-19 16:36] LABS: Glucose,Whole Blood 129 mg/dL (75-99)
--- NOTE | 2021-08-19 19:22 | P.PN ---
Subjective Progress Note Date: 08/19/21 Principal diagnosis: Sepsis related to left lower lobe pneumonia Possible infectious diarrhea Acute on chronic kidney disease stage III Patient is a pleasant 81-year-old male came in with the complaints of cough unable to bring up anything fever chills leukocytosis. Patient is tested negative for Covid 19. Patient also found to have elevated creatinine of around 2.4 was started on IV fluids. Patient does have diarrhea which started about 2 days ago his cough and shortness of breath started about 5 days ago. 08/19/2021 Patient is seen and evaluated sitting up in bedside chair; family at bedside Vital signs are reviewed and are stable Laboratory review shows WBC 10.6, hemoglobin 10.0, platelet count of 257, sodium 140, potassium 4.1, BUN/creatinine of 31.7/3.7, and blood glucose of 179 Patient remains on IV Zosyn for community-acquired pneumonia; x-ray reveals slight worsening of pneumonia; ID on board and recommending to continue with IV Zosyn at this time with plans to obtain sputum culture to narrow down antibiotic therapy Objective - Vital Signs Vital signs: Vital Signs Temp 98.4 F 08/19/21 07:23 Pulse 80 08/19/21 12:17 Resp 16 08/19/21 07:47 BP 143/57 08/19/21 07:23 Pulse Ox 95 08/19/21 07:23 Intake & Output 08/18/21 08/19/21 08/19/21 18:59 06:59 18:59 Intake Total 700 Output Total 250 Balance 450 Intake: Intake, IV Titration 100 Amount Piperacillin-Tazobactam 3 100 .375 gm In Sodium Chloride 0.9% 100 ml @ 25 mls/hr IVPB Q8HR [facility] Rx# :[id number] Oral 600 Output: Urine 250 Other: Voiding Method Urinal Toilet Urinal # Voids 2 # Bowel Movements 1 - Exam GENERAL: The patient is alert and oriented x3, not in any acute distress. HEENT: Pupils are round and equally reacting to light. EOMI. No scleral icterus. No conjunctival pallor. Normocephalic, atraumatic. No pharyngeal erythema. No thyromegaly. CARDIOVASCULAR: S1 and S2 present. No murmurs, rubs, or gallops. PULMONARY: Diffuse bilateral rhonchi and expiratory wheezing ABDOMEN: Soft, nontender, nondistended, normoactive bowel sounds. No palpable organomegaly. MUSCULOSKELETAL: No joint swelling or deformity. EXTREMITIES: No cyanosis, clubbing, or pedal edema. NEUROLOGICAL: Gross neurological examination did not reveal any focal deficits. SKIN: No rashes. - Labs CBC & Chem 7: 08/19/21 05:54 08/19/21 05:54 Labs: Abnormal Lab Results - Last 24 Hours (Table) 08/18/21 08/19/21 08/19/21 Range/Units 20:09 05:54 05:54 WBC 10.06 H (4.50-10.00) X 10*3/uL RBC 2.97 L (4.40-5.60) X 10*6/uL Hgb 10.0 L (13.0-17.0) g/dL Hct 29.7 L (39.6-50.0) % MCV 100.0 H (80.0-97.0) fL MCH 33.7 H (27.0-32.0) pg MPV 12.9 H (9.5-12.2) fL Carbon Dioxide 18.4 L (20.0-27.5) mmol/L BUN 31.7 H (9.0-27.0) mg/dL Creatinine 3.7 H (0.6-1.5) mg/dL Est GFR (CKD-EPI)AfAm 16.6 L (60.0-200.0) Est GFR (CKD-EPI)NonAf 14.3 L (60.0-200.0) BUN/Creatinine Ratio 8.59 L (12.00-20.00) Ratio Glucose 179 H (70-110) mg/dL POC Glucose (mg/dL) 162 H (75-99) mg/dL Calcium 8.3 L (8.7-10.3) mg/dL 08/19/21 08/19/21 Range/Units 07:21 11:46 WBC (4.50-10.00) X 10*3/uL RBC (4.40-5.60) X 10*6/uL Hgb (13.0-17.0) g/dL Hct (39.6-50.0) % MCV (80.0-97.0) fL MCH (27.0-32.0) pg MPV (9.5-12.2) fL Carbon Dioxide (20.0-27.5) mmol/L BUN (9.0-27.0) mg/dL Creatinine (0.6-1.5) mg/dL Est GFR (CKD-EPI)AfAm (60.0-200.0) Est GFR (CKD-EPI)NonAf (60.0-200.0) BUN/Creatinine Ratio (12.00-20.00) Ratio Glucose (70-110) mg/dL POC Glucose (mg/dL) 168 H 191 H (75-99) mg/dL Calcium (8.7-10.3) mg/dL Microbiology - Last 24 Hours (Table) 08/13/21 20:14 Blood Culture - Preliminary Blood No Growth after 120 hours Assessment and Plan Assessment: Assessment and plan -Sepsis scondary left lower lobe pneumonia, patient was switched to Zosyn which will be continued and patient is also on azithromycin. He was resolved patient is much better today clinically except for what elevated red blood cell count -Diarrhea secondary to infection, diarrhea resolved at this time -Acute renal failure on chronic kidney disease stage III - diabetes nephropathy -Type 2 diabetes mellitus: Patient will be resumed on his home regimen along with sliding scale insulin titration depending on his blood sugars -Hypertension -Hyperlipidemia - hypothyroidism -Depression -History of colon cancer status post resection in remission since then -Obstructive sleep apnea uses CPAP machine at home. DVT prophylaxis: Subcutaneous heparin
[2021-08-19] MEDS ORDERED: amLODIPine 5 MG TAB PO STA (20:44)
[2021-08-19 20:54] LABS: Glucose,Whole Blood 176 mg/dL (75-99)
[2021-08-19] MEDS: ALPRAZolam 0.25 MG TAB PO PRN (21:19)
[2021-08-19] MEDS: ATORVASTATIN 40 MG TAB PO SCH (21:19)
[2021-08-19] MEDS: ACETAMINOPHEN TAB 325 MG TAB PO PRN (21:20)
--- NOTE | 2021-08-19 22:25 | PN ---
PROGRESS NOTE DATE OF SERVICE: 08/19/2021 REASON FOR FOLLOWUP: Pneumonia, possible Gram-negative. INTERVAL HISTORY: The patient is afebrile. The patient is breathing comfortably. The patient continues to have a cough, moderate intensity, not bringing up any sputum. No nausea, no vomiting. No abdominal pain or diarrhea. PHYSICAL EXAMINATION: Blood pressure 160/70 with a pulse of 90, temperature 97.7. He is 97% on 2 L nasal cannula. General description is an elderly male up in the bed in no distress. Respiratory system: Unlabored breathing coarse breath sounds bilaterally. No wheeze. Heart S1, S2. Regular rate and rhythm. Abdomen soft, no tenderness. LABS: Hemoglobin is 10, white count 10.06, creatinine 3.7. DIAGNOSTIC IMPRESSION AND PLAN: Patient admitted to hospital with a fever concerning for a pneumonia, possibly Gram- negative. On Zosyn, fever has resolved. Patient now seems to have worsening of his kidney function. May benefit from nephrology evaluation. Continue Zosyn. Try to obtain a sputum sample to narrow down his antibiotics, and continue supportive care. MMODL / IJN: [id number] /
[2021-08-20] MEDS: PIPERACILLIN-TAZOBACTAM 3.375 GM in SODIUM CHLORIDE 0.9% 100 ML IVPB SCH ×2 (05:26→16:25)
[2021-08-20] MEDS: LEVOTHYROXINE 50 MCG TAB PO SCH (05:35)
[2021-08-20 07:01] LABS: Glucose,Whole Blood 141 mg/dL (75-99)
[2021-08-20] MEDS: oxyCODONE-APAP 7.5-325MG 1 EACH TAB PO SCH ×2 (07:33→22:19)
[2021-08-20] MEDS: PRIMIDONE 50 MG TAB PO SCH ×2 (07:33→22:17)
[2021-08-20] MEDS: FAMOTIDINE 20 MG TAB PO SCH (07:33)
[2021-08-20] MEDS: GABAPENTIN 300 MG CAP PO SCH ×2 (07:33→22:18)
[2021-08-20] MEDS: SERTRALINE 100 MG TAB PO SCH ×2 (07:33→22:18)
[2021-08-20] MEDS: CHOLECALCIFEROL 25 MCG (1000 IU) TABLET PO SCH (07:34)
[2021-08-20] MEDS: TAMSULOSIN 0.4 MG CAP.ER.24H PO SCH ×3 (07:34→22:17)
[2021-08-20] MEDS: ASPIRIN 81 MG PO SCH (07:34)
[2021-08-20] MEDS: MULTIVITAMINS, THERA 1 EACH TAB PO SCH (07:34)
[2021-08-20] MEDS: amLODIPine 5 MG TAB PO SCH (07:34)
[2021-08-20] MEDS: HEPARIN SODIUM,PORCINE/PF 5,000 UNIT/0.5 ML SYRINGE SQ SCH ×2 (07:38→22:16)
[2021-08-20] MEDS: INSULIN DETEMIR (LEVEMIR) 100 UNIT/ML SYR SQ SCH (07:39)
[2021-08-20] MEDS: INSULIN ASPART (NovoLOG) 100 UNIT/ML VIAL SQ SCH ×4 (07:39→22:20)
[2021-08-20] MEDS: guaiFENesin-DM 100-10MG/5ML 10 ML CUP PO PRN ×3 (08:35→22:17)
[2021-08-20] MEDS: IPRATROPIUM-ALBUTEROL 3 ML NEB INHALATION SCH ×4 (08:57→21:24)
[2021-08-20] MEDS: BUDESONIDE 0.5 MG/2 ML NEBU INHALATION SCH ×2 (08:57→21:24)
[2021-08-20 09:05] LABS: Basophils # (A) 0.04 X 10*3/uL (0.00-0.10); Basophils % (A) 0.4 %; Eosinophils # (A) 0.22 X 10*3/uL (0.04-0.35); Eosinophils % (A) 2.1 %; HCT 31.7 % (39.6-50.0); HGB 10.5 g/dL (13.0-17.0); Lymphocytes # (A) 1.69 X 10*3/uL (0.90-5.00); MCH 33.2 pg (27.0-32.0); MCHC 33.1 g/dL (32.0-37.0); MCV 100.3 fL (80.0-97.0); Mean Platelet Volume 12.7 fL (9.5-12.2); Monocytes # (A) 0.63 X 10*3/uL (0.20-1.00); Neutrophils # (A) 7.86 X 10*3/uL (1.80-7.70); Neutrophils % (A) 74.3 %; Platelet Count 306 X 10*3/uL (140-440); RBC 3.16 X 10*6/uL (4.40-5.60); RDW 14.2 % (11.5-14.5); WBC 10.57 X 10*3/uL (4.50-10.00)
[2021-08-20 09:35] LABS: African American GFR (CKD) 17.7 (60.0-200.0); Anion Gap 17.6 mmol/L (10.00-18.00); BUN/Creat Ratio 8.71 Ratio (12.00-20.00); Blood Urea Nitrogen 30.5 mg/dL (9.0-27.0); Calcium 8.6 mg/dL (8.7-10.3); Carbon Dioxide 19.4 mmol/L (20.0-27.5); Non-African American GFR(CKD) 15.2 (60.0-200.0); Potassium 3.8 mmol/L (3.5-5.5)
[2021-08-20 11:23] LABS: Glucose,Whole Blood 219 mg/dL (75-99)
[2021-08-20] MEDS: SODIUM CHLORIDE 0.45% 1,000 ML IV SCH (13:28)
[2021-08-20] MEDS ORDERED: FLUTICASONE 50MCG/SPRAY NASAL 16GM EA NOSTRIL PRN (13:51)
[2021-08-20 16:19] LABS: Glucose,Whole Blood 204 mg/dL (75-99)
--- NOTE | 2021-08-20 17:20 | P.PN ---
Subjective Progress Note Date: 08/20/21 Principal diagnosis: Sepsis related to left lower lobe pneumonia Possible infectious diarrhea Acute on chronic kidney disease stage III Patient is a pleasant 81-year-old male came in with the complaints of cough unable to bring up anything fever chills leukocytosis. Patient is tested negative for Covid 19. Patient also found to have elevated creatinine of around 2.4 was started on IV fluids. Patient does have diarrhea which started about 2 days ago his cough and shortness of breath started about 5 days ago. 08/19/2021 Patient is seen and evaluated sitting up in bedside chair; family at bedside Vital signs are reviewed and are stable Laboratory review shows WBC 10.6, hemoglobin 10.0, platelet count of 257, sodium 140, potassium 4.1, BUN/creatinine of 31.7/3.7, and blood glucose of 179 Patient remains on IV Zosyn for community-acquired pneumonia; x-ray reveals slight worsening of pneumonia; ID on board and recommending to continue with IV Zosyn at this time with plans to obtain sputum culture to narrow down antibiotic therapy 08/20/2021 Patient is seen and evaluated sitting up in bed; requesting home nasal spray Vital signs are reviewed and are stable with temperature of 98.5, pulse 81, respiration 18 and blood pressure 151/74 with O2 saturation of 97% on 3 L Laboratory values significant for WBC of 10.5, hemoglobin 10.5, white blood count of 306, sodium 141, potassium 2.8, BUN/creatinine worsening at 30.5/3.5; blood glucoses ranging above 200 Patient remains on IV antibiotics in form of Zosyn; ID on board and recommending to obtain sputum culture in order to narrow down antibiotic use Creatinine continues to trend up; we will start patient on slow IV fluid hydration with half-normal saline at 50 mL an hour and consult nephrology Objective - Vital Signs Vital signs: Vital Signs Temp 98.3 F 08/20/21 07:23 Pulse 92 08/20/21 12:23 Resp 18 08/20/21 07:23 BP 172/81 08/20/21 07:23 Pulse Ox 92 L 08/20/21 07:23 Intake & Output 08/19/21 08/20/21 08/20/21 18:59 06:59 18:59 Intake Total 336 540 Output Total 150 600 Balance 186 -60 Weight 76.657 kg Intake: Intake, IV Titration 100 200 Amount Piperacillin-Tazobactam 3 100 100 .375 gm In Sodium Chloride 0.9% 100 ml @ 25 mls/hr IVPB Q12H [facility] Rx# :[id number] Piperacillin-Tazobactam 3 100 .375 gm In Sodium Chloride 0.9% 100 ml @ 25 mls/hr IVPB Q8HR [facility] Rx# :[id number] Oral 236 340 Output: Urine 150 600 Other: Voiding Method Toilet Urinal Urinal Urinal - Exam GENERAL: The patient is alert and oriented x3, not in any acute distress. HEENT: Pupils are round and equally reacting to light. EOMI. No scleral icterus. No conjunctival pallor. Normocephalic, atraumatic. No pharyngeal erythema. No thyromegaly. CARDIOVASCULAR: S1 and S2 present. No murmurs, rubs, or gallops. PULMONARY: Diffuse bilateral rhonchi and expiratory wheezing ABDOMEN: Soft, nontender, nondistended, normoactive bowel sounds. No palpable organomegaly. MUSCULOSKELETAL: No joint swelling or deformity. EXTREMITIES: No cyanosis, clubbing, or pedal edema. NEUROLOGICAL: Gross neurological examination did not reveal any focal deficits. SKIN: No rashes. - Labs CBC & Chem 7: 08/20/21 05:50 08/20/21 05:50 Labs: Abnormal Lab Results - Last 24 Hours (Table) 08/19/21 08/19/21 08/20/21 Range/Units 16:35 20:51 05:50 WBC 10.57 H (4.50-10.00) X 10*3/uL RBC 3.16 L (4.40-5.60) X 10*6/uL Hgb 10.5 L (13.0-17.0) g/dL Hct 31.7 L (39.6-50.0) % MCV 100.3 H (80.0-97.0) fL MCH 33.2 H (27.0-32.0) pg MPV 12.7 H (9.5-12.2) fL Immature Gran # 0.13 H (0.00-0.04) X 10*3/uL Neutrophils # 7.86 H (1.80-7.70) X 10*3/uL Carbon Dioxide (20.0-27.5) mmol/L BUN (9.0-27.0) mg/dL Creatinine (0.6-1.5) mg/dL Est GFR (CKD-EPI)AfAm (60.0-200.0) Est GFR (CKD-EPI)NonAf (60.0-200.0) BUN/Creatinine Ratio (12.00-20.00) Ratio Glucose (70-110) mg/dL POC Glucose (mg/dL) 129 H 176 H (75-99) mg/dL Calcium (8.7-10.3) mg/dL 08/20/21 08/20/21 08/20/21 Range/Units 05:50 06:59 11:19 WBC (4.50-10.00) X 10*3/uL RBC (4.40-5.60) X 10*6/uL Hgb (13.0-17.0) g/dL Hct (39.6-50.0) % MCV (80.0-97.0) fL MCH (27.0-32.0) pg MPV (9.5-12.2) fL Immature Gran # (0.00-0.04) X 10*3/uL Neutrophils # (1.80-7.70) X 10*3/uL Carbon Dioxide 19.4 L (20.0-27.5) mmol/L BUN 30.5 H (9.0-27.0) mg/dL Creatinine 3.5 H (0.6-1.5) mg/dL Est GFR (CKD-EPI)AfAm 17.7 L (60.0-200.0) Est GFR (CKD-EPI)NonAf 15.2 L (60.0-200.0) BUN/Creatinine Ratio 8.71 L (12.00-20.00) Ratio Glucose 128 H (70-110) mg/dL POC Glucose (mg/dL) 141 H 219 H (75-99) mg/dL Calcium 8.6 L (8.7-10.3) mg/dL Microbiology - Last 24 Hours (Table) 08/13/21 20:14 Blood Culture - Final Blood No Growth after 144 hours Assessment and Plan Assessment: Assessment and plan -Sepsis scondary left lower lobe pneumonia, patient was switched to Zosyn which will be continued and patient is also on azithromycin. He was resolved patient is much better today clinically except for what elevated red blood cell count -Diarrhea secondary to infection, diarrhea resolved at this time -Acute renal failure on chronic kidney disease stage III - diabetes nephropathy -Type 2 diabetes mellitus: Patient will be resumed on his home regimen along with sliding scale insulin titration depending on his blood sugars -Hypertension -Hyperlipidemia - hypothyroidism -Depression -History of colon cancer status post resection in remission since then -Obstructive sleep apnea uses CPAP machine at home. DVT prophylaxis: Subcutaneous heparin
[2021-08-20 20:35] LABS: Glucose,Whole Blood 161 mg/dL (75-99)
[2021-08-20] MEDS: ATORVASTATIN 40 MG TAB PO SCH (22:19)
--- NOTE | 2021-08-21 01:12 | PN ---
PROGRESS NOTE DATE OF SERVICE: 08/20/2021 REASON FOR FOLLOWUP: Pneumonia, possible gram-negative. INTERVAL HISTORY: The patient is afebrile. He is breathing slightly comfortably. Still complaining of cough, not bringing up any sputum. No chest pain. No abdominal pain, no diarrhea. PHYSICAL EXAMINATION: Blood pressure 117/78 with a pulse of 89, temperature 98.5. He is 98% on 2 L nasal cannula. General description is an elderly male lying in bed in no distress. Respiratory system: Unlabored breathing. Coarse breath sounds bilaterally, no wheeze. Heart S1, S2. Regular rate and rhythm. Abdomen soft, no tenderness. LABS: Hemoglobin is 10.1, white count 10.57, creatinine 3.5. DIAGNOSTIC IMPRESSION AND PLAN: Patient admitted to the hospital with fever and cough concerning for pneumonia, possible gram-negative. Has been treated with Zosyn. Blood culture negative. Sputum has not been collected. Continue current antibiotics and monitor clinical course closely. Continue supportive care. MMODL / IJN: [id number] /
[2021-08-21] MEDS: PIPERACILLIN-TAZOBACTAM 3.375 GM in SODIUM CHLORIDE 0.9% 100 ML IVPB SCH ×2 (05:33→17:12)
[2021-08-21] MEDS: ACETAMINOPHEN TAB 325 MG TAB PO PRN (05:34)
[2021-08-21] MEDS: LEVOTHYROXINE 50 MCG TAB PO SCH (05:35)
[2021-08-21 07:02] LABS: Glucose,Whole Blood 171 mg/dL (75-99)
[2021-08-21] MEDS: FAMOTIDINE 20 MG TAB PO SCH (07:15)
[2021-08-21] MEDS: CHOLECALCIFEROL 25 MCG (1000 IU) TABLET PO SCH (07:15)
[2021-08-21] MEDS: MULTIVITAMINS, THERA 1 EACH TAB PO SCH (07:15)
[2021-08-21] MEDS: ASPIRIN 81 MG PO SCH (07:15)
[2021-08-21] MEDS: oxyCODONE-APAP 7.5-325MG 1 EACH TAB PO SCH ×2 (07:15→20:38)
[2021-08-21] MEDS: GABAPENTIN 300 MG CAP PO SCH ×2 (07:16→20:38)
[2021-08-21] MEDS: amLODIPine 5 MG TAB PO SCH (07:16)
[2021-08-21] MEDS: PRIMIDONE 50 MG TAB PO SCH ×2 (07:16→20:38)
[2021-08-21] MEDS: HEPARIN SODIUM,PORCINE/PF 5,000 UNIT/0.5 ML SYRINGE SQ SCH ×2 (07:16→20:37)
[2021-08-21] MEDS: SERTRALINE 100 MG TAB PO SCH ×2 (07:16→20:38)
[2021-08-21] MEDS: TAMSULOSIN 0.4 MG CAP.ER.24H PO SCH ×3 (07:16→20:39)
[2021-08-21] MEDS: INSULIN DETEMIR (LEVEMIR) 100 UNIT/ML SYR SQ SCH (07:17)
[2021-08-21] MEDS: INSULIN ASPART (NovoLOG) 100 UNIT/ML VIAL SQ SCH ×4 (07:17→20:37)
[2021-08-21] MEDS: SODIUM CHLORIDE 0.45% 1,000 ML IV SCH (07:21)
[2021-08-21] MEDS: BUDESONIDE 0.5 MG/2 ML NEBU INHALATION SCH ×2 (08:23→21:22)
[2021-08-21] MEDS: IPRATROPIUM-ALBUTEROL 3 ML NEB INHALATION SCH ×4 (08:23→21:21)
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
[2021-08-21] MEDS: SODIUM BICARBONATE TAB 650 MG TAB PO SCH ×2 (11:05→20:38)
[2021-08-21 11:33] LABS: Glucose,Whole Blood 168 mg/dL (75-99)
[2021-08-21] MEDS: guaiFENesin-DM 100-10MG/5ML 10 ML CUP PO PRN ×2 (11:41→19:50)
[2021-08-21 12:18] LABS: African American GFR (CKD) 19.8 (60.0-200.0); Anion Gap 16.5 mmol/L (10.00-18.00); BUN/Creat Ratio 8.11 Ratio (12.00-20.00); Blood Urea Nitrogen 25.8 mg/dL (9.0-27.0); Calcium 8.2 mg/dL (8.7-10.3); Carbon Dioxide 18.1 mmol/L (20.0-27.5); Non-African American GFR(CKD) 17.1 (60.0-200.0); Potassium 3.5 mmol/L (3.5-5.5)
[2021-08-21] MEDS ORDERED: POTASSIUM CHLORIDE ER 20 MEQ TAB.ER PO STA (13:39)
[2021-08-21 16:38] LABS: Glucose,Whole Blood 183 mg/dL (75-99)
[2021-08-21 20:28] LABS: Glucose,Whole Blood 246 mg/dL (75-99)
[2021-08-21] MEDS: ATORVASTATIN 40 MG TAB PO SCH (20:38)
--- NOTE | 2021-08-21 23:38 | PN ---
PROGRESS NOTE DATE OF SERVICE: 08/21/2021 REASON FOR FOLLOWUP: Pneumonia possible gram-negative. INTERVAL HISTORY: Patient is afebrile. The patient is breathing comfortably. Still complaining of a cough, not bringing up any sputum. No nausea, no vomiting. No abdominal pain. No diarrhea. PHYSICAL EXAMINATION: Blood pressure 167/90 with a pulse of 83, temperature 98.8. He is 92% on room air. General description is an elderly male lying in bed in no distress. Respiratory system: Unlabored breathing. Coarse breath sounds bilaterally. No wheeze. Heart S1, S2. Regular rate and rhythm. Abdomen soft, no tenderness. LABS: Creatinine is down to 3.0. Blood culture has been negative. DIAGNOSTIC IMPRESSION AND PLAN: Patient with a left-sided pneumonia possible gram-negative covered with Zosyn has shown clinical improvement, to continue while inpatient. Hopefully transition to oral antibiotic on discharge. Continue supportive care. MMODL / IJN: [id number] /
[2021-08-22] MEDS: PIPERACILLIN-TAZOBACTAM 3.375 GM in SODIUM CHLORIDE 0.9% 100 ML IVPB SCH ×2 (05:43→17:10)
[2021-08-22] MEDS: SODIUM CHLORIDE 0.45% 1,000 ML IV SCH (05:45)
[2021-08-22] MEDS: LEVOTHYROXINE 50 MCG TAB PO SCH (05:51)
[2021-08-22 07:21] LABS: Glucose,Whole Blood 165 mg/dL (75-99)
[2021-08-22] MEDS: INSULIN ASPART (NovoLOG) 100 UNIT/ML VIAL SQ SCH ×4 (08:18→21:19)
[2021-08-22] MEDS: PRIMIDONE 50 MG TAB PO SCH ×2 (08:19→21:17)
[2021-08-22] MEDS: oxyCODONE-APAP 7.5-325MG 1 EACH TAB PO SCH ×2 (08:19→21:19)
[2021-08-22] MEDS: SERTRALINE 100 MG TAB PO SCH ×2 (08:19→21:19)
[2021-08-22] MEDS: TAMSULOSIN 0.4 MG CAP.ER.24H PO SCH ×3 (08:19→21:19)
[2021-08-22] MEDS: GABAPENTIN 300 MG CAP PO SCH ×2 (08:19→21:18)
[2021-08-22] MEDS: amLODIPine 5 MG TAB PO SCH (08:19)
[2021-08-22] MEDS: ASPIRIN 81 MG PO SCH (08:19)
[2021-08-22] MEDS: FAMOTIDINE 20 MG TAB PO SCH (08:20)
[2021-08-22] MEDS: CHOLECALCIFEROL 25 MCG (1000 IU) TABLET PO SCH (08:20)
[2021-08-22] MEDS: SODIUM BICARBONATE TAB 650 MG TAB PO SCH ×4 (08:20→21:19)
[2021-08-22] MEDS: HEPARIN SODIUM,PORCINE/PF 5,000 UNIT/0.5 ML SYRINGE SQ SCH ×2 (08:20→21:18)
[2021-08-22] MEDS: MULTIVITAMINS, THERA 1 EACH TAB PO SCH (08:20)
[2021-08-22] MEDS: IPRATROPIUM-ALBUTEROL 3 ML NEB INHALATION SCH ×4 (08:45→21:12)
[2021-08-22] MEDS: BUDESONIDE 0.5 MG/2 ML NEBU INHALATION SCH ×2 (08:45→21:12)
--- NOTE | 2021-08-22 08:51 | P.PN ---
Subjective Progress Note Date: 08/22/21 Principal diagnosis: This is a 81-year-old male seen in consultation because of acute kidney injury from pneumonia. He also has stage IV chronic kidney disease with nephrosclerosi s and diabetic nephropathy. He continues to have cough which is dry. He said he fell once because of dizziness. No nausea vomiting appetite is slowly better. No diarrhea. Objective - Vital Signs Vital signs: Vital Signs Temp 98.7 F 08/22/21 08:00 Pulse 98 08/22/21 08:00 Resp 16 08/22/21 08:00 BP 158/77 08/22/21 08:00 Pulse Ox 93 L 08/22/21 08:00 Intake & Output 08/21/21 08/22/21 08/22/21 18:59 06:59 18:59 Intake Total 600 Output Total 1100 Balance -500 Intake: Intake, IV Titration 600 Amount Sodium Chloride 0.45% 1, 600 000 ml @ 50 mls/hr IV . Q20H [facility] Rx#:[id number] Output: Urine 1100 Other: Voiding Method Urinal On examination is awake alert oriented HEENT exam no JVP neck is supple no facial asymmetry Heart sounds are unremarkable for any murmur rub gallop Abdomen is soft nontender Lungs are significant for bilateral coarse crackle and harsh breath sounds Extremity exam was trace edema Neurologically awake alert oriented - Labs CBC & Chem 7: 08/20/21 05:50 08/21/21 06:05 Labs: Abnormal Lab Results - Last 24 Hours (Table) 08/21/21 08/21/21 08/21/21 Range/Units 06:05 11:31 16:37 Carbon Dioxide 18.1 L (20.0-27.5) mmol/L Creatinine 3.2 H (0.6-1.5) mg/dL Est GFR (CKD-EPI)AfAm 19.8 L (60.0-200.0) Est GFR (CKD-EPI)NonAf 17.1 L (60.0-200.0) BUN/Creatinine Ratio 8.11 L (12.00-20.00) Ratio Glucose 147 H (70-110) mg/dL POC Glucose (mg/dL) 168 H 183 H (75-99) mg/dL Calcium 8.2 L (8.7-10.3) mg/dL 08/21/21 08/22/21 Range/Units 20:24 07:19 Carbon Dioxide (20.0-27.5) mmol/L Creatinine (0.6-1.5) mg/dL Est GFR (CKD-EPI)AfAm (60.0-200.0) Est GFR (CKD-EPI)NonAf (60.0-200.0) BUN/Creatinine Ratio (12.00-20.00) Ratio Glucose (70-110) mg/dL POC Glucose (mg/dL) 246 H 165 H (75-99) mg/dL Calcium (8.7-10.3) mg/dL Assessment and Plan Assessment: Impression 1. Acute kidney injury secondary to pneumonia sepsis. Creatinine improving today's labs not available. 2. Chronic kidney disease stage IV secondary diabetic nephropathy and nephrosclerosis Baseline creatinine 2 3. Mild degree of gap and non-gap acidosis from acute kidney injury bicarb is 18 and gap is 16. 4. Anemia hemoglobin is 10.5, on admission was 14.1. No obvious blood loss Recommendation 1. Increase Sodium bicarbonate 650 4 times a day 2. Maintain hydration currently on 50 mL of half-normal saline, will change that to lactated Ringer's Or. Monitor labs
[2021-08-22] MEDS: guaiFENesin-DM 100-10MG/5ML 10 ML CUP PO PRN ×2 (09:50→19:41)
[2021-08-22] MEDS: LACTATED RINGERS 1,000 ML IV SCH (09:50)
[2021-08-22] MEDS: INSULIN DETEMIR (LEVEMIR) 100 UNIT/ML SYR SQ SCH (09:50)
[2021-08-22 11:57] LABS: Glucose,Whole Blood 262 mg/dL (75-99)
[2021-08-22 12:13] LABS: African American GFR (CKD) 24.2 (60.0-200.0); Anion Gap 19.8 mmol/L (10.00-18.00); BUN/Creat Ratio 8.56 Ratio (12.00-20.00); Blood Urea Nitrogen 23.1 mg/dL (9.0-27.0); Calcium 8.6 mg/dL (8.7-10.3); Carbon Dioxide 15.2 mmol/L (20.0-27.5); Magnesium 2.2 mg/dL (1.5-2.4); Non-African American GFR(CKD) 20.9 (60.0-200.0); Potassium 3.8 mmol/L (3.5-5.5)
[2021-08-22 17:03] LABS: Glucose,Whole Blood 87 mg/dL (75-99)
[2021-08-22] MEDS: ACETAMINOPHEN TAB 325 MG TAB PO PRN (17:09)
[2021-08-22 20:49] LABS: Glucose,Whole Blood 189 mg/dL (75-99)
[2021-08-22] MEDS: ATORVASTATIN 40 MG TAB PO SCH (21:18)
--- NOTE | 2021-08-23 01:33 | PN ---
PROGRESS NOTE DATE OF SERVICE: 08/22/2021 REASON FOR FOLLOWUP: Pneumonia possible gram-negative. INTERVAL HISTORY: Patient is afebrile. The patient is breathing more comfortably. The patient denies any chest pain. Still has some hacking cough, not bringing up any sputum. No vomiting. No abdominal pain. No diarrhea. PHYSICAL EXAMINATION: Blood pressure 150/76, pulse of 82, temperature is 97.8. He is 97% on 2 L nasal cannula. General description is an elderly male up in the bed in no distress. Respiratory system: Unlabored breathing, coarse breath sounds. No wheeze. Heart S1, S2. Regular rate and rhythm. Abdomen soft, no tenderness. LAB: Creatinine is down to 2.7. Blood culture negative. Sputum not collected. DIAGNOSTIC IMPRESSION AND PLAN: The admitted to the hospital with pneumonia, concern for possible gram-negative in this patient overall improvement with Zosyn to continue. Will transition to oral Avelox on discharge once his kidney function improves. Continue supportive care. MMODL / IJN: [id number] /
[2021-08-23] MEDS: LEVOTHYROXINE 50 MCG TAB PO SCH (05:24)
[2021-08-23] MEDS: PIPERACILLIN-TAZOBACTAM 3.375 GM in SODIUM CHLORIDE 0.9% 100 ML IVPB SCH ×2 (05:24→17:11)
[2021-08-23] MEDS: LACTATED RINGERS 1,000 ML IV SCH (05:25)
[2021-08-23] MEDS: guaiFENesin-DM 100-10MG/5ML 10 ML CUP PO PRN ×3 (05:31→23:56)
[2021-08-23 07:27] LABS: Glucose,Whole Blood 175 mg/dL (75-99)
[2021-08-23] MEDS: BUDESONIDE 0.5 MG/2 ML NEBU INHALATION SCH ×2 (08:00→20:04)
[2021-08-23] MEDS: IPRATROPIUM-ALBUTEROL 3 ML NEB INHALATION SCH ×4 (08:00→20:03)
[2021-08-23] MEDS: CHOLECALCIFEROL 25 MCG (1000 IU) TABLET PO SCH (08:03)
[2021-08-23] MEDS: INSULIN DETEMIR (LEVEMIR) 100 UNIT/ML SYR SQ SCH (08:03)
[2021-08-23] MEDS: INSULIN ASPART (NovoLOG) 100 UNIT/ML VIAL SQ SCH ×4 (08:03→21:37)
[2021-08-23] MEDS: amLODIPine 5 MG TAB PO SCH (08:04)
[2021-08-23] MEDS: TAMSULOSIN 0.4 MG CAP.ER.24H PO SCH ×3 (08:04→21:37)
[2021-08-23] MEDS: HEPARIN SODIUM,PORCINE/PF 5,000 UNIT/0.5 ML SYRINGE SQ SCH ×2 (08:04→21:38)
[2021-08-23] MEDS: SERTRALINE 100 MG TAB PO SCH ×2 (08:04→21:35)
[2021-08-23] MEDS: ASPIRIN 81 MG PO SCH (08:04)
[2021-08-23] MEDS: GABAPENTIN 300 MG CAP PO SCH ×2 (08:04→21:35)
[2021-08-23] MEDS: oxyCODONE-APAP 7.5-325MG 1 EACH TAB PO SCH ×2 (08:04→21:36)
[2021-08-23] MEDS: SODIUM BICARBONATE TAB 650 MG TAB PO SCH ×4 (08:04→21:35)
[2021-08-23] MEDS: MULTIVITAMINS, THERA 1 EACH TAB PO SCH (08:04)
[2021-08-23] MEDS: PRIMIDONE 50 MG TAB PO SCH ×2 (08:06→21:37)
[2021-08-23] MEDS: FAMOTIDINE 20 MG TAB PO SCH (08:35)
--- NOTE | 2021-08-23 09:23 | P.PN ---
Subjective Progress Note Date: 08/23/21 Principal diagnosis: This is a 81-year-old male seen in consultation because of acute kidney injury from pneumonia. He also has stage IV chronic kidney disease with nephrosclerosi s and diabetic nephropathy. His creatinine continues to slowly improve as of yesterday creatinine had come down from a peak of 3.7-2.7. He continues to have cough which is dry. Otherwise fairly asymptomatic. He wishes to go home. No nausea vomiting shortness of breath diarrhea. He is on room air Objective - Vital Signs Vital signs: Vital Signs Temp 98.2 F 08/23/21 07:45 Pulse 100 08/23/21 08:19 Resp 20 08/23/21 07:45 BP 161/84 08/23/21 07:45 Pulse Ox 98 08/23/21 07:45 Intake & Output 08/22/21 08/23/21 08/23/21 18:59 06:59 18:59 Output Total 800 Balance -800 Output: Urine 800 Other: Voiding Method Urinal # Voids 2 On examination awake alert oriented comfortable HEENT exam no JVP neck is supple no facial asymmetry Lungs are significant for occasional bibasal are coarse crackle good air entry bilaterally Heart sounds unremarkable for any murmur rub gallop Abdomen soft nontender Extreme exam was no edema Neurologically awake alert oriented - Labs CBC & Chem 7: 08/20/21 05:50 08/22/21 07:47 Labs: Abnormal Lab Results - Last 24 Hours (Table) 08/22/21 08/22/21 08/22/21 Range/Units 07:47 11:55 20:47 Carbon Dioxide 15.2 L (20.0-27.5) mmol/L Anion Gap 19.80 H (10.00-18.00) mmol/L Creatinine 2.7 H (0.6-1.5) mg/dL Est GFR (CKD-EPI)AfAm 24.2 L (60.0-200.0) Est GFR (CKD-EPI)NonAf 20.9 L (60.0-200.0) BUN/Creatinine Ratio 8.56 L (12.00-20.00) Ratio Glucose 154 H (70-110) mg/dL POC Glucose (mg/dL) 262 H 189 H (75-99) mg/dL Calcium 8.6 L (8.7-10.3) mg/dL 08/23/21 Range/Units 07:25 Carbon Dioxide (20.0-27.5) mmol/L Anion Gap (10.00-18.00) mmol/L Creatinine (0.6-1.5) mg/dL Est GFR (CKD-EPI)AfAm (60.0-200.0) Est GFR (CKD-EPI)NonAf (60.0-200.0) BUN/Creatinine Ratio (12.00-20.00) Ratio Glucose (70-110) mg/dL POC Glucose (mg/dL) 175 H (75-99) mg/dL Calcium (8.7-10.3) mg/dL Assessment and Plan Assessment: Impression 1. Acute kidney injury secondary to pneumonia sepsis. Creatinine improving, peaked at 3.7 and 2.7 as of yesterday today's labs not available. 2. Chronic kidney disease stage IV secondary diabetic nephropathy and nephrosclerosis Baseline creatinine 2 3. Mild degree of gap and non-gap acidosis from acute kidney injury bicarb 15 with a gap of 19 as of yesterday him on sodium bicarb 650 4 times a day and normal saline was changed to lactated Ringer's yesterday to improve the acidosis 4. Anemia hemoglobin is 10.5, on admission was 14.1. No obvious blood loss Recommendation 1. Continue Sodium bicarbonate 650 4 times a day 2. Continue lactated Ringer's at 50 mL an hour 3. Patient can be discharged as per primary physician
[2021-08-23 11:33] LABS: Glucose,Whole Blood 164 mg/dL (75-99)
[2021-08-23 16:40] LABS: Glucose,Whole Blood 135 mg/dL (75-99)
--- NOTE | 2021-08-23 17:29 | P.PN ---
Subjective Progress Note Date: 08/21/21 Principal diagnosis: Sepsis related to left lower lobe pneumonia Possible infectious diarrhea Acute on chronic kidney disease stage III Patient is a pleasant 81-year-old male came in with the complaints of cough unable to bring up anything fever chills leukocytosis. Patient is tested negative for Covid 19. Patient also found to have elevated creatinine of around 2.4 was started on IV fluids. Patient does have diarrhea which started about 2 days ago his cough and shortness of breath started about 5 days ago. 08/19/2021 Patient is seen and evaluated sitting up in bedside chair; family at bedside Vital signs are reviewed and are stable Laboratory review shows WBC 10.6, hemoglobin 10.0, platelet count of 257, sodium 140, potassium 4.1, BUN/creatinine of 31.7/3.7, and blood glucose of 179 Patient remains on IV Zosyn for community-acquired pneumonia; x-ray reveals slight worsening of pneumonia; ID on board and recommending to continue with IV Zosyn at this time with plans to obtain sputum culture to narrow down antibiotic therapy 08/20/2021 Patient is seen and evaluated sitting up in bed; requesting home nasal spray Vital signs are reviewed and are stable with temperature of 98.5, pulse 81, respiration 18 and blood pressure 151/74 with O2 saturation of 97% on 3 L Laboratory values significant for WBC of 10.5, hemoglobin 10.5, white blood count of 306, sodium 141, potassium 2.8, BUN/creatinine worsening at 30.5/3.5; blood glucoses ranging above 200 Patient remains on IV antibiotics in form of Zosyn; ID on board and recommending to obtain sputum culture in order to narrow down antibiotic use Creatinine continues to trend up; we will start patient on slow IV fluid hydration with half-normal saline at 50 mL an hour and consult nephrology 08/21/2021 Patient is seen and evaluated in room at bedside; denies any specific complaints Vital signs are reviewed and stable with temperature of 97.4, pulse 110, discussion 14 and blood pressure of 152/71; O2 saturation of 92% Labs are reviewed and reveals sodium 141, potassium 3.5, chloride 107, bicarb 18.1, BUN/creatinine of 25.8/3.2 just slightly improved from yesterday at 30.5/3.5 Nephrology has been consulted and recommending to continue gentle IV fluid hydration and encourage oral intake; oral bicarbonate has been hydrated; continue to monitor strict LUCY's and daily weights; blood scan is ordered to rule out urinary retention Objective - Vital Signs Vital signs: Vital Signs Temp 97.9 F 08/21/21 14:00 Pulse 93 08/21/21 14:00 Resp 18 08/21/21 14:00 BP 138/72 08/21/21 14:00 Pulse Ox 93 L 08/21/21 14:00 Intake & Output 08/20/21 08/21/21 08/21/21 18:59 06:59 18:59 Output Total 300 Balance -300 Output: Urine 300 Other: Voiding Method Urinal Urinal Urinal # Voids 2 - Exam GENERAL: The patient is alert and oriented x3, not in any acute distress. HEENT: Pupils are round and equally reacting to light. EOMI. No scleral icterus. No conjunctival pallor. Normocephalic, atraumatic. No pharyngeal erythema. No thyromegaly. CARDIOVASCULAR: S1 and S2 present. No murmurs, rubs, or gallops. PULMONARY: Diffuse bilateral rhonchi and expiratory wheezing ABDOMEN: Soft, nontender, nondistended, normoactive bowel sounds. No palpable organomegaly. MUSCULOSKELETAL: No joint swelling or deformity. EXTREMITIES: No cyanosis, clubbing, or pedal edema. NEUROLOGICAL: Gross neurological examination did not reveal any focal deficits. SKIN: No rashes. - Labs CBC & Chem 7: 08/20/21 05:50 08/22/21 07:47 Labs: Abnormal Lab Results - Last 24 Hours (Table) 08/20/21 08/20/21 08/21/21 Range/Units 16:15 20:34 06:05 Carbon Dioxide 18.1 L (20.0-27.5) mmol/L Creatinine 3.2 H (0.6-1.5) mg/dL Est GFR (CKD-EPI)AfAm 19.8 L (60.0-200.0) Est GFR (CKD-EPI)NonAf 17.1 L (60.0-200.0) BUN/Creatinine Ratio 8.11 L (12.00-20.00) Ratio Glucose 147 H (70-110) mg/dL POC Glucose (mg/dL) 204 H 161 H (75-99) mg/dL Calcium 8.2 L (8.7-10.3) mg/dL 08/21/21 08/21/21 Range/Units 07:01 11:31 Carbon Dioxide (20.0-27.5) mmol/L Creatinine (0.6-1.5) mg/dL Est GFR (CKD-EPI)AfAm (60.0-200.0) Est GFR (CKD-EPI)NonAf (60.0-200.0) BUN/Creatinine Ratio (12.00-20.00) Ratio Glucose (70-110) mg/dL POC Glucose (mg/dL) 171 H 168 H (75-99) mg/dL Calcium (8.7-10.3) mg/dL Assessment and Plan Assessment: Assessment and plan -Sepsis scondary left lower lobe pneumonia, patient was switched to Zosyn which will be continued and patient is also on azithromycin. He was resolved patient is much better today clinically except for what elevated red blood cell count -Diarrhea secondary to infection, diarrhea resolved at this time -Acute renal failure on chronic kidney disease stage III - diabetes nephropathy -Type 2 diabetes mellitus: Patient will be resumed on his home regimen along with sliding scale insulin titration depending on his blood sugars -Hypertension -Hyperlipidemia - hypothyroidism -Depression -History of colon cancer status post resection in remission since then -Obstructive sleep apnea uses CPAP machine at home. DVT prophylaxis: Subcutaneous heparin
--- NOTE | 2021-08-23 17:32 | P.PN ---
Subjective Progress Note Date: 08/15/21 Principal diagnosis: Sepsis related to left lower lobe pneumonia Possible infectious diarrhea Acute on chronic kidney disease stage III Patient is a pleasant 81-year-old male came in with the complaints of cough unable to bring up anything fever chills leukocytosis. Patient is tested negative for Covid 19. Patient also found to have elevated creatinine of around 2.4 was started on IV fluids. Patient does have diarrhea which started about 2 days ago his cough and shortness of breath started about 5 days ago. 08/19/2021 Patient is seen and evaluated sitting up in bedside chair; family at bedside Vital signs are reviewed and are stable Laboratory review shows WBC 10.6, hemoglobin 10.0, platelet count of 257, sodium 140, potassium 4.1, BUN/creatinine of 31.7/3.7, and blood glucose of 179 Patient remains on IV Zosyn for community-acquired pneumonia; x-ray reveals slight worsening of pneumonia; ID on board and recommending to continue with IV Zosyn at this time with plans to obtain sputum culture to narrow down antibiotic therapy 08/20/2021 Patient is seen and evaluated sitting up in bed; requesting home nasal spray Vital signs are reviewed and are stable with temperature of 98.5, pulse 81, respiration 18 and blood pressure 151/74 with O2 saturation of 97% on 3 L Laboratory values significant for WBC of 10.5, hemoglobin 10.5, white blood count of 306, sodium 141, potassium 2.8, BUN/creatinine worsening at 30.5/3.5; blood glucoses ranging above 200 Patient remains on IV antibiotics in form of Zosyn; ID on board and recommending to obtain sputum culture in order to narrow down antibiotic use Creatinine continues to trend up; we will start patient on slow IV fluid hydration with half-normal saline at 50 mL an hour and consult nephrology 08/21/2021 Patient is seen and evaluated in room at bedside; denies any specific complaints Vital signs are reviewed and stable with temperature of 97.4, pulse 110, discussion 14 and blood pressure of 152/71; O2 saturation of 92% Labs are reviewed and reveals sodium 141, potassium 3.5, chloride 107, bicarb 18.1, BUN/creatinine of 25.8/3.2 just slightly improved from yesterday at 30.5/3.5 Nephrology has been consulted and recommending to continue gentle IV fluid hydration and encourage oral intake; oral bicarbonate has been hydrated; continue to monitor strict LUCY's and daily weights; blood scan is ordered to rule out urinary retention 08/22/2021 Patient is seen in follow-up; sitting up at the bedside; no complaints of shortness of breath or chest pain Vital signs are stable with temperature 98.7, pulse 98, respirations 16 and blood pressure 152/77; O2 saturation 93% Labs reveal sodium of 140, potassium 3.8, BUN/creatinine of 23/2.7 which is improved from 25.8/3.2 yesterday Patient remains on slow IV fluid hydration with normal saline at a rate of 50 mL an hour; nephrology recommending to increase sodium bicarbonate up to 650 mg 4 times a day Objective - Vital Signs Vital signs: Vital Signs Temp 97.8 F 08/22/21 14:00 Pulse 82 08/22/21 14:00 Resp 16 08/22/21 14:00 BP 150/76 08/22/21 14:00 Pulse Ox 97 08/22/21 14:00 Intake & Output 08/21/21 08/22/21 08/22/21 18:59 06:59 18:59 Intake Total 600 Output Total 1100 Balance -500 Intake: Intake, IV Titration 600 Amount Sodium Chloride 0.45% 1, 600 000 ml @ 50 mls/hr IV . Q20H [facility] Rx#:[id number] Output: Urine 1100 Other: Voiding Method Urinal - Exam GENERAL: The patient is alert and oriented x3, not in any acute distress. HEENT: Pupils are round and equally reacting to light. EOMI. No scleral icterus. No conjunctival pallor. Normocephalic, atraumatic. No pharyngeal erythema. No thyromegaly. CARDIOVASCULAR: S1 and S2 present. No murmurs, rubs, or gallops. PULMONARY: Diffuse bilateral rhonchi and expiratory wheezing ABDOMEN: Soft, nontender, nondistended, normoactive bowel sounds. No palpable organomegaly. MUSCULOSKELETAL: No joint swelling or deformity. EXTREMITIES: No cyanosis, clubbing, or pedal edema. NEUROLOGICAL: Gross neurological examination did not reveal any focal deficits. SKIN: No rashes. - Labs CBC & Chem 7: 08/20/21 05:50 08/22/21 07:47 Labs: Abnormal Lab Results - Last 24 Hours (Table) 08/21/21 08/22/21 08/22/21 Range/Units 20:24 07:19 07:47 Carbon Dioxide 15.2 L (20.0-27.5) mmol/L Anion Gap 19.80 H (10.00-18.00) mmol/L Creatinine 2.7 H (0.6-1.5) mg/dL Est GFR (CKD-EPI)AfAm 24.2 L (60.0-200.0) Est GFR (CKD-EPI)NonAf 20.9 L (60.0-200.0) BUN/Creatinine Ratio 8.56 L (12.00-20.00) Ratio Glucose 154 H (70-110) mg/dL POC Glucose (mg/dL) 246 H 165 H (75-99) mg/dL Calcium 8.6 L (8.7-10.3) mg/dL 08/22/21 Range/Units 11:55 Carbon Dioxide (20.0-27.5) mmol/L Anion Gap (10.00-18.00) mmol/L Creatinine (0.6-1.5) mg/dL Est GFR (CKD-EPI)AfAm (60.0-200.0) Est GFR (CKD-EPI)NonAf (60.0-200.0) BUN/Creatinine Ratio (12.00-20.00) Ratio Glucose (70-110) mg/dL POC Glucose (mg/dL) 262 H (75-99) mg/dL Calcium (8.7-10.3) mg/dL Assessment and Plan Assessment: Assessment and plan -Sepsis scondary left lower lobe pneumonia, patient was switched to Zosyn which will be continued and patient is also on azithromycin. He was resolved patient is much better today clinically except for what elevated red blood cell count -Diarrhea secondary to infection, diarrhea resolved at this time -Acute renal failure on chronic kidney disease stage III - diabetes nephropathy -Type 2 diabetes mellitus: Patient will be resumed on his home regimen along wit h sliding scale insulin titration depending on his blood sugars -Hypertension -Hyperlipidemia - hypothyroidism -Depression -History of colon cancer status post resection in remission since then -Obstructive sleep apnea uses CPAP machine at home. DVT prophylaxis: Subcutaneous heparin
--- NOTE | 2021-08-23 17:37 | P.PN ---
Subjective Progress Note Date: 08/23/21 Principal diagnosis: Sepsis related to left lower lobe pneumonia Possible infectious diarrhea Acute on chronic kidney disease stage III Patient is a pleasant 81-year-old male came in with the complaints of cough unable to bring up anything fever chills leukocytosis. Patient is tested negative for Covid 19. Patient also found to have elevated creatinine of around 2.4 was started on IV fluids. Patient does have diarrhea which started about 2 days ago his cough and shortness of breath started about 5 days ago. 08/19/2021 Patient is seen and evaluated sitting up in bedside chair; family at bedside Vital signs are reviewed and are stable Laboratory review shows WBC 10.6, hemoglobin 10.0, platelet count of 257, sodium 140, potassium 4.1, BUN/creatinine of 31.7/3.7, and blood glucose of 179 Patient remains on IV Zosyn for community-acquired pneumonia; x-ray reveals slight worsening of pneumonia; ID on board and recommending to continue with IV Zosyn at this time with plans to obtain sputum culture to narrow down antibiotic therapy 08/20/2021 Patient is seen and evaluated sitting up in bed; requesting home nasal spray Vital signs are reviewed and are stable with temperature of 98.5, pulse 81, respiration 18 and blood pressure 151/74 with O2 saturation of 97% on 3 L Laboratory values significant for WBC of 10.5, hemoglobin 10.5, white blood count of 306, sodium 141, potassium 2.8, BUN/creatinine worsening at 30.5/3.5; blood glucoses ranging above 200 Patient remains on IV antibiotics in form of Zosyn; ID on board and recommending to obtain sputum culture in order to narrow down antibiotic use Creatinine continues to trend up; we will start patient on slow IV fluid hydration with half-normal saline at 50 mL an hour and consult nephrology 08/21/2021 Patient is seen and evaluated in room at bedside; denies any specific complaints Vital signs are reviewed and stable with temperature of 97.4, pulse 110, discussion 14 and blood pressure of 152/71; O2 saturation of 92% Labs are reviewed and reveals sodium 141, potassium 3.5, chloride 107, bicarb 18.1, BUN/creatinine of 25.8/3.2 just slightly improved from yesterday at 30.5/3.5 Nephrology has been consulted and recommending to continue gentle IV fluid hydration and encourage oral intake; oral bicarbonate has been hydrated; continue to monitor strict LUCY's and daily weights; blood scan is ordered to rule out urinary retention 08/22/2021 Patient is seen in follow-up; sitting up at the bedside; no complaints of shortness of breath or chest pain Vital signs are stable with temperature 98.7, pulse 98, respirations 16 and blood pressure 152/77; O2 saturation 93% Labs reveal sodium of 140, potassium 3.8, BUN/creatinine of 23/2.7 which is improved from 25.8/3.2 yesterday Patient remains on slow IV fluid hydration with normal saline at a rate of 50 mL an hour; nephrology recommending to increase sodium bicarbonate up to 650 mg 4 times a day 08/23/2021 Patient is seen and evaluated; reports some nausea earlier this morning which is resolved Vital signs reviewed temperature of 98.2, pulse 100, respiration 20 and blood pressure 161/84; O2 saturation of 98% BUN/creatinine steadily trending down; creatinine at 2.7 yesterday; patient has a baseline around 2.0; fluids have been changed to lactated Ringer at 50 mL an hour due to low bicarb of 15 and anion gap of 19; patient remains on sodium bicarbonate; we will continue to monitor renal function and X lites closely Patient remains on IV Zosyn for gram-negative pneumonia; ID recommending to continue with current management with plan to transition to oral Avelox once renal function improves Objective - Vital Signs Vital signs: Vital Signs Temp 98.2 F 08/23/21 07:45 Pulse 98 08/23/21 16:33 Resp 20 08/23/21 07:45 BP 161/84 08/23/21 07:45 Pulse Ox 98 08/23/21 07:45 Intake & Output 08/22/21 08/23/21 08/23/21 18:59 06:59 18:59 Output Total 800 Balance -800 Output: Urine 800 Other: Voiding Method Urinal Urinal # Voids 2 - Exam GENERAL: The patient is alert and oriented x3, not in any acute distress. HEENT: Pupils are round and equally reacting to light. EOMI. No scleral icterus. No conjunctival pallor. Normocephalic, atraumatic. No pharyngeal erythema. No thyromegaly. CARDIOVASCULAR: S1 and S2 present. No murmurs, rubs, or gallops. PULMONARY: Diffuse bilateral rhonchi and expiratory wheezing ABDOMEN: Soft, nontender, nondistended, normoactive bowel sounds. No palpable organomegaly. MUSCULOSKELETAL: No joint swelling or deformity. EXTREMITIES: No cyanosis, clubbing, or pedal edema. NEUROLOGICAL: Gross neurological examination did not reveal any focal deficits. SKIN: No rashes. - Labs CBC & Chem 7: 08/20/21 05:50 08/22/21 07:47 Labs: Abnormal Lab Results - Last 24 Hours (Table) 08/22/21 08/23/21 08/23/21 Range/Units 20:47 07:25 11:31 POC Glucose (mg/dL) 189 H 175 H 164 H (75-99) mg/dL 08/23/21 Range/Units 16:36 POC Glucose (mg/dL) 135 H (75-99) mg/dL Assessment and Plan Assessment: Assessment and plan -Sepsis scondary left lower lobe pneumonia, patient was switched to Zosyn which will be continued and patient is also on azithromycin. He was resolved patient is much better today clinically except for what elevated red blood cell count -Diarrhea secondary to infection, diarrhea resolved at this time -Acute renal failure on chronic kidney disease stage III - diabetes nephropathy -Type 2 diabetes mellitus: Patient will be resumed on his home regimen along with sliding scale insulin titration depending on his blood sugars -Hypertension -Hyperlipidemia - hypothyroidism -Depression -History of colon cancer status post resection in remission since then -Obstructive sleep apnea uses CPAP machine at home. DVT prophylaxis: Subcutaneous heparin
[2021-08-23 21:01] LABS: Glucose,Whole Blood 165 mg/dL (75-99)
[2021-08-23] MEDS: ATORVASTATIN 40 MG TAB PO SCH (21:35)
[2021-08-23] MEDS: ALPRAZolam 0.25 MG TAB PO PRN (21:52)
--- NOTE | 2021-08-23 23:10 | PN ---
PROGRESS NOTE DATE OF SERVICE: 08/23/2021 REASON FOR FOLLOWUP: Pneumonia, possibly Gram-negative. INTERVAL HISTORY: The patient is afebrile. The patient is breathing comfortably. He is currently on room air. The patient denies having any chest pain or worsening cough or sputum production. No abdominal pain or diarrhea. PHYSICAL EXAMINATION: Blood pressure 168/85, pulse of 92, temperature 98.5. He is 97% on room air. General description is an elderly male up in the bed in no distress. Respiratory system: Unlabored breathing. Occasional wheeze. Heart S1, S2. Regular rate and rhythm. Abdomen soft, no tenderness. LABS: No new labs have been obtained today. DIAGNOSTIC IMPRESSION AND PLAN: Patient admitted to hospital with pneumonia, possibly Gram-negative. Overall improvement on Zosyn. May consider a short course of oral Avelox on discharge and close outpatient followup. MMODL / IJN: [id number] /
[2021-08-24] MEDS: LACTATED RINGERS 1,000 ML IV SCH (04:10)
[2021-08-24] MEDS: PIPERACILLIN-TAZOBACTAM 3.375 GM in SODIUM CHLORIDE 0.9% 100 ML IVPB SCH (06:06)
[2021-08-24] MEDS: LEVOTHYROXINE 50 MCG TAB PO SCH (06:06)
[2021-08-24 07:17] LABS: Glucose,Whole Blood 137 mg/dL (75-99)
[2021-08-24] MEDS: INSULIN DETEMIR (LEVEMIR) 100 UNIT/ML SYR SQ SCH (07:27)
[2021-08-24] MEDS: SERTRALINE 100 MG TAB PO SCH (07:41)
[2021-08-24] MEDS: PRIMIDONE 50 MG TAB PO SCH (07:41)
[2021-08-24] MEDS: GABAPENTIN 300 MG CAP PO SCH (07:41)
[2021-08-24] MEDS: CHOLECALCIFEROL 25 MCG (1000 IU) TABLET PO SCH (07:41)
[2021-08-24] MEDS: FAMOTIDINE 20 MG TAB PO SCH (07:42)
[2021-08-24] MEDS: oxyCODONE-APAP 7.5-325MG 1 EACH TAB PO SCH (07:42)
[2021-08-24] MEDS: TAMSULOSIN 0.4 MG CAP.ER.24H PO SCH (07:42)
[2021-08-24] MEDS: ASPIRIN 81 MG PO SCH (07:42)
[2021-08-24] MEDS: HEPARIN SODIUM,PORCINE/PF 5,000 UNIT/0.5 ML SYRINGE SQ SCH (07:42)
[2021-08-24] MEDS: MULTIVITAMINS, THERA 1 EACH TAB PO SCH (07:42)
[2021-08-24] MEDS: amLODIPine 5 MG TAB PO SCH (07:42)
[2021-08-24] MEDS: SODIUM BICARBONATE TAB 650 MG TAB PO SCH ×2 (07:42→12:06)
[2021-08-24] MEDS: INSULIN ASPART (NovoLOG) 100 UNIT/ML VIAL SQ SCH ×2 (07:43→12:06)
[2021-08-24] MEDS: IPRATROPIUM-ALBUTEROL 3 ML NEB INHALATION SCH ×2 (07:53→11:22)
[2021-08-24 08:02] VITALS: BP 147/74; RESP 18; TEMP 98.4
[2021-08-24] MEDS: BUDESONIDE 0.5 MG/2 ML NEBU INHALATION SCH (08:04)
[2021-08-24 11:34] VITALS: PULSE 102
[2021-08-24 11:36] LABS: Basophils % (A) 0 %; Eosinophils # (A) 0.2 k/uL (0-0.7); Eosinophils % (A) 2 %; HCT 32.7 % (39.0-53.0); Lymphocytes # (A) 1.2 k/uL (1.0-4.8); Lymphocytes % (A) 12 %; MCH 34.7 pg (25.0-35.0); MCHC 33.8 g/dL (31.0-37.0); MCV 102.7 fL (80.0-100.0); Macrocytosis Slight; Mean Platelet Volume 9.9; Monocytes # (A) 0.4 k/uL (0-1.0); Monocytes % (A) 4 %; Neutrophils # (A) 7.8 k/uL (1.3-7.7); Neutrophils % (A) 81 %; Platelet Count 364 k/uL (150-450); Poikilocytosis Slight; RBC 3.18 m/uL (4.30-5.90); RDW 13.8 % (11.5-15.5); WBC 9.7 k/uL (3.8-10.6)
[2021-08-24 11:55] LABS: Glucose,Whole Blood 234 mg/dL (75-99)
--- NOTE | 2021-08-24 12:29 | PN ---
PROGRESS NOTE Patient is seen for followup for acute kidney injury. His renal function has been improving. Serum creatinine was down to 2.7 on 08/22/2021. The patient states that he wants to go home. Lab work is still pending from today. He has been walking in the hallway. Denies any significant chest pains or shortness of breath. PHYSICAL EXAMINATION: On examination today, blood pressure 147/74, heart rate 101 per minute. He is afebrile. Examination of the heart S1, S2. Examination of the lungs, bilateral breath sounds are heard. Abdomen is soft, nontender. Examination of lower extremities shows trace edema bilaterally. [employer] exam grossly intact. LABS: Not available from today. On 08/22/2021, serum creatinine was 2.7, sodium 140, potassium 3.8. ASSESSMENT: 1. Acute kidney injury secondary to pneumonia and sepsis currently improving and labs are pending from today. The patient can be discharged from nephrology standpoint as long as blood work continues to improve. 2. 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 3. Gap and non gap metabolic acidosis maintained on oral sodium bicarb. 4. Anemia, no active bleeding noted. Continue to monitor for now. PLAN: Okay to discharge patient from nephrology standpoint. Follow up on labs from today. Will follow up in the office in about one week's time. Decrease sodium bicarb based on labs from today. MMODL / IJN: [id number] /
[2021-08-24 12:47] LABS: ALT 68 U/L (4-49); AST 101 U/L (17-59); African American GFR (CKD) 29 (>60 ml/min/1.73 sqM); Albumin 3.1 g/dL (3.5-5.0); Albumin/Globulin Ratio 1.1; Alkaline Phosphatase 158 U/L (38-126); Anion Gap 12 mmol/L; Blood Urea Nitrogen 19 mg/dL (9-20); Calcium 8.4 mg/dL (8.4-10.2); Carbon Dioxide 23 mmol/L (22-30); Chloride 108 mmol/L (98-107); Globulin 2.8 g/dL; Glucose 209 mg/dL (74-99); Magnesium 1.9 mg/dL (1.6-2.3); Non-African American GFR(CKD) 25 (>60 ml/min/1.73 sqM); Potassium 3.3 mmol/L (3.5-5.1); Sodium 143 mmol/L (137-145); Total Bilirubin 0.3 mg/dL (0.2-1.3); Total Protein 5.9 g/dL (6.3-8.2)
[2021-08-24] MEDS ORDERED: POTASSIUM CHLORIDE ER 20 MEQ TAB.ER PO STA (12:53)
--- NOTE | 2021-08-24 15:59 | PN ---
PROGRESS NOTE DATE OF SERVICE: 08/24/2021 REASON FOR FOLLOWUP: Pneumonia; possible Gram-negative. INTERVAL HISTORY: The patient is afebrile. The patient is breathing comfortably. The patient denies having any chest pain, shortness of breath or cough. No abdominal pain or diarrhea. PHYSICAL EXAMINATION: Blood pressure is 147/74 with a pulse of 90, temperature 98.4. She is 94% on 2 L nasal cannula. General description is an elderly male up in the chair in no distress. Respiratory system: Unlabored breathing, decreased intensity of breath sounds. No wheeze. Heart S1, S2. Regular rate and rhythm. Abdomen soft, no tenderness. LABS: Hemoglobin is 11, white count 9.7, creatinine is 2.34. DIAGNOSTIC IMPRESSION AND PLAN: Patient admitted to hospital with pneumonia, possibly Gram-negative. Has received adequate Zosyn. Transition to a short course of oral Avelox on discharge and close outpatient followup. MMODL / IJN: [id number] /
--- NOTE | 2021-08-25 08:51 | P.DS ---
Providers Date of admission: 08/13/21 19:57 Expected date of discharge: 08/24/21 Attending physician: Corrine Tubbs Consults: 08/15/21 15:29 Consult Physician Routine Consulting Provider: Art Dubois Consult Reason/Comments: Pneumonia Do you want consulting provider notified?: Yes 08/20/21 12:46 Consult Physician Routine Consulting Provider: Patrice Perez Consult Reason/Comments: worsening renal failure Do you want consulting provider notified?: Yes Primary care physician: Reilly Higginbotham Hospital Course: Final diagnosis -Sepsis scondary left lower lobe pneumonia, present on admission -Diarrhea secondary to infection, diarrhea resolved at this time -Acute renal failure on chronic kidney disease stage III -diabetes nephropathy -Type 2 diabetes mellitus -Hypertension -Hyperlipidemia -hypothyroidism -Depression -History of colon cancer status post resection in remission -Obstructive sleep apnea uses CPAP machine at home. -DVT prophylaxis Discharge disposition Patient is being discharged in a stable condition with guarded prognosis to home. Patient will follow-up with Dr. Higginbotham in the outpatient setting upon discharge. Patient is to follow-up with nephrology and pulmonary in the outpatient setting. Patient will continue on oral Avelox 400 mg daily for the next 5 days to complete the course. Patient also to continue with sodium bicarb tablets and recommend repeat labs in 2-3 days and outpatient follow-up with nephrology. Total time taken is greater than 35 minutes. Hospital course This is an 81-year-old male who was recently admitted with complaints of cough and congestion and being closely monitored. Patient was found to have left lower lobe pneumonia. COVID-19 was negative. Pulmonary and infectious disease following. Nephrology also consulted as patient had elevated creatinine and was started on IV fluids. Kidney functions trending down and recommend to continue current medication regimen as described below and close outpatient follow-up with nephrology along with repeat labs in 2-3 days. Patient was maintained on IV antibiotics and transition to oral Avelox 400 mg daily for the next 5 days to complete the course. Patient was maintained on low-dose oxygen via nasal cannula although did not qualify for oxygen on discharge. Prescription provided to case management to obtain nebulizer and recommend close outpatient follow-up with pulmonary. Patient is adamant and requesting to go home today. Currently no reports of chest pain, worsening shortness of breath, or palpitations. Patient is afebrile. No reports of nausea or vomiting and patient is tolerating diet. Patient will be discharged home today. Her prognosis. Physical Exam: GENERAL: The patient is alert and oriented x3, not in any acute distress. HEENT: Pupils are round and equally reacting to light. EOMI. No scleral icterus. No conjunctival pallor. Normocephalic, atraumatic. No pharyngeal erythema. No thyromegaly. CARDIOVASCULAR: S1 and S2 muffled PULMONARY: Diffuse bilateral rhonchi with no wheezing or crackles noted ABDOMEN: Soft, nontender, nondistended, normoactive bowel sounds. No palpable organomegaly. MUSCULOSKELETAL: No joint swelling or deformity. EXTREMITIES: No cyanosis, clubbing, or pedal edema. NEUROLOGICAL: Gross neurological examination did not reveal any focal deficits. SKIN: No rashes. Please refer to medication reconciliation sheet for a list of medications. Patient Condition at Discharge: Fair Plan - Discharge Summary Discharge Rx Participant: No New Discharge Prescriptions: New Ipratropium-Albuterol Nebulize [Duoneb 0.5 mg-3 mg/3 ml Soln] 3 ml INHALATION RT-QID 30 Days #90 ml Sodium Bicarbonate Tab 650 mg PO QID 30 Days #120 tab Moxifloxacin HCl [Avelox] 400 mg PO DAILY 5 Days #5 tablet guaiFENesin-DM 100-10MG/5ML [Robitussin DM] 10 ml PO Q6HR PRN #120 ml PRN Reason: Cough Continue Sertraline [Zoloft] 100 mg PO BID rOPINIRole HCL [Requip] 0.5 mg PO HS Levothyroxine Sodium [Synthroid] 50 mcg PO DAILY calcitrioL [Calcitriol] 0.25 mcg PO SUTUTHSA Gabapentin 600 mg PO BID Tamsulosin [Flomax] 0.4 mg PO TID Nitroglycerin Sl Tabs [Nitrostat] 0.4 mg SUBLINGUAL Q5M PRN PRN Reason: Chest Pain Fluticasone Propionate 1 spray EA NOSTRIL DAILY PRN PRN Reason: Allergy Symptoms Insulin Glargine,Hum.rec.anlog [Lantus Solostar Pen] 30 units SQ DAILY oxyCODONE-APAP 7.5-325MG [Percocet 7.5-325 mg] 1 tab PO BID Rosuvastatin [Crestor] 20 mg PO HS Aspirin EC [Ecotrin Low Dose] 81 mg PO DAILY Albuterol Inhaler [Ventolin Hfa Inhaler] 2 puff INHALATION RT-QID PRN PRN Reason: Shortness Of Breath Cholecalciferol [Vitamin D3 (25 Mcg = 1000 Iu)] 25 mcg PO DAILY Omeprazole 40 mg PO DAILY Triamcinolone 0.1% Ointment [Kenalog 0.1% Ointment] 1 applic TOPICAL BID Primidone [Mysoline] 150 mg PO BID amLODIPine [Norvasc] 5 mg PO DAILY Melatonin 20 mg PO HS Carboxymethylcellulose Sodium [Refresh Tears] 1 drop BOTH EYES Q12H PRN PRN Reason: Dry Eye(S) atenoloL [Tenormin] 25 mg PO DAILY Multivitamins, Thera [Multivitamin (formulary)] 1 tab PO DAILY Discontinued Furosemide [Lasix] 40 mg PO DAILY lisinopriL [Zestril] 5 mg PO DAILY Amoxic-Pot Clav 875-125Mg [Augmentin 875-125] 1 tab PO BID Discharge Medication List Sertraline [Zoloft] 100 mg PO BID 02/18/16 [History] rOPINIRole HCL [Requip] 0.5 mg PO HS 08/20/16 [History] Levothyroxine Sodium [Synthroid] 50 mcg PO DAILY 12/11/18 [History] calcitrioL [Calcitriol] 0.25 mcg PO SUTUTHSA 12/11/18 [History] Gabapentin 600 mg PO BID 12/15/18 [History] Fluticasone Propionate 1 spray EA NOSTRIL DAILY PRN 07/11/20 [History] Nitroglycerin Sl Tabs [Nitrostat] 0.4 mg SUBLINGUAL Q5M PRN 07/11/20 [History] Tamsulosin [Flomax] 0.4 mg PO TID 07/11/20 [History] Primidone [Mysoline] 150 mg PO BID 01/26/21 [History] amLODIPine [Norvasc] 5 mg PO DAILY 01/26/21 [History] Insulin Glargine,Hum.rec.anlog [Lantus Solostar Pen] 30 units SQ DAILY 05/15/21 [History] Melatonin 20 mg PO HS 05/15/21 [History] Rosuvastatin [Crestor] 20 mg PO HS 05/15/21 [History] oxyCODONE-APAP 7.5-325MG [Percocet 7.5-325 mg] 1 tab PO BID 05/15/21 [History] Aspirin EC [Ecotrin Low Dose] 81 mg PO DAILY 06/17/21 [History] Albuterol Inhaler [Ventolin Hfa Inhaler] 2 puff INHALATION RT-QID PRN 07/09/21 [History] Carboxymethylcellulose Sodium [Refresh Tears] 1 drop BOTH EYES Q12H PRN 07/09/21 [History] atenoloL [Tenormin] 25 mg PO DAILY 07/09/21 [History] Cholecalciferol [Vitamin D3 (25 Mcg = 1000 Iu)] 25 mcg PO DAILY 07/14/21 [History] Omeprazole 40 mg PO DAILY 07/14/21 [History] Multivitamins, Thera [Multivitamin (formulary)] 1 tab PO DAILY 08/13/21 [History] Triamcinolone 0.1% Ointment [Kenalog 0.1% Ointment] 1 applic TOPICAL BID 08/13/21 [History] Ipratropium-Albuterol Nebulize [Duoneb 0.5 mg-3 mg/3 ml Soln] 3 ml INHALATION RT-QID 30 Days #90 ml 08/24/21 [Rx] Moxifloxacin HCl [Avelox] 400 mg PO DAILY 5 Days #5 tablet 08/24/21 [Rx] Sodium Bicarbonate Tab 650 mg PO QID 30 Days #120 tab 08/24/21 [Rx] guaiFENesin-DM 100-10MG/5ML [Robitussin DM] 10 ml PO Q6HR PRN #120 ml 08/24/21 [Rx] Follow up Appointment(s)/Referral(s): Reilly Higginbothma MD [Primary Care Provider] - 08/26/21 1:20 pm Savannah Hackett MD [STAFF PHYSICIAN] - 1 Week (office will call patient with appointment ) Michael Garrison DO [Doctor of Osteopathic Medicine] - 09/10/21 10:00 am Ambulatory/Diagnostic Orders: Complete Blood Count w/diff [LAB.AMB] Time Frame: 3 Days, Location: None Selected Patient Instructions/Handouts: Viral Pneumonia (DC) Activity/Diet/Wound Care/Special Instructions: Patient requires a nebulizer to manage his pneumonia at home. Patient will need Duonebs QID. Activity Limited until follow-up Continue medications as prescribed Follow-up with pulmonary outpatient Follow-up primary care provider outpatient Recommend repeat labs to monitor kidney functions and electrolytes along with magnesium and CBC Follow-up with nephrology outpatient in one week Continue taking antibiotics until finished Discharge Disposition: HOME SELF-CARE
== END 2021-08-24 14:32 | disposition home or self-care (01) | DRG 871 ==
LOC: EC 18:32 → 4SSUR 19:57
PROVIDERS: ADMIT Hospitalist; ATTEND Hospitalist
PROC: 05HF33Z Insertion of Infusion Device into Left Cephalic Vein, Percutaneous Approach (ICD-10-PCS; principal; 2021-08-18 13:30)
DX: A41.9 Sepsis, unspecified organism (principal); J15.6 Pneumonia due to other Gram-negative bacteria; J96.01 Acute respiratory failure with hypoxia; N17.0 Acute kidney failure with tubular necrosis; A09 Infectious gastroenteritis and colitis, unspecified; E87.2 Acidosis; I13.0 Hypertensive heart and chronic kidney disease with heart failure and stage 1 through stage 4 chronic kidney disease, or unspecified chronic kidney disease; N18.4 Chronic kidney disease, stage 4 (severe); Z20.822 Contact with and (suspected) exposure to COVID-19; D64.9 Anemia, unspecified; E03.9 Hypothyroidism, unspecified; E11.22 Type 2 diabetes mellitus with diabetic chronic kidney disease; E78.5 Hyperlipidemia, unspecified; F32.A Depression, unspecified; F41.9 Anxiety disorder, unspecified; G47.33 Obstructive sleep apnea (adult) (pediatric); I48.91 Unspecified atrial fibrillation; M89.8X9 Other specified disorders of bone, unspecified site; R65.20 Severe sepsis without septic shock; Z79.4 Long term (current) use of insulin; Z79.82 Long term (current) use of aspirin; Z87.891 Personal history of nicotine dependence; Z96.1 Presence of intraocular lens; Z96.651 Presence of right artificial knee joint; Z97.0 Presence of artificial eye; Z85.038 Personal history of other malignant neoplasm of large intestine; Z82.49 Family history of ischemic heart disease and other diseases of the circulatory system; Z80.8 Family history of malignant neoplasm of other organs or systems; Z79.899 Other long term (current) drug therapy; Z79.890 Hormone replacement therapy
CPT/HCPCS: 36410; 36415; 71045; 71046; 76937; 80048; 80053; 82330; 83605; 83735; 83880; 84145; 84484; 85025; 85027; 85610; 85730; 87040; 87635; 93005; 94640; 94760; 96361; 96365; 96366; 96375; 99285

== ENCOUNTER 2021-10-21 15:38 | Observation (INO) | payer MEDICARE ==
--- NOTE | 2021-10-21 17:49 | XR ---
EXAMINATION TYPE: XR chest 2V DATE OF EXAM: 10/21/2021 5:04 PM COMPARISON:Chest radiographs from 08/18/2021 TECHNIQUE: Frontal and lateral views of the chest. CLINICAL INDICATION:Male, 81 years old with history of Chest Pain; FINDINGS: Lungs/Pleura: There is no evidence of pleural effusion, focal consolidation, or pneumothorax. Pulmonary vascularity: Unremarkable. Heart/mediastinum: Cardiomediastinal silhouette is unremarkable. Musculoskeletal: No acute osseous pathology. IMPRESSION: No acute cardiopulmonary disease/process.
[2021-10-21 18:55] LABS: Basophils # (A) 0.1 k/uL (0-0.2); Basophils % (A) 1 %; Eosinophils # (A) 0.4 k/uL (0-0.7); Eosinophils % (A) 3 %; HCT 39.9 % (39.0-53.0); HGB 13.6 gm/dL (13.0-17.5); Lymphocytes # (A) 3.5 k/uL (1.0-4.8); Lymphocytes % (A) 32 %; MCH 34.1 pg (25.0-35.0); MCHC 34.1 g/dL (31.0-37.0); MCV 100.1 fL (80.0-100.0); Mean Platelet Volume 9.1; Monocytes # (A) 0.3 k/uL (0-1.0); Monocytes % (A) 3 %; Neutrophils # (A) 6.7 k/uL (1.3-7.7); Neutrophils % (A) 60 %; Platelet Count 194 k/uL (150-450); RBC 3.99 m/uL (4.30-5.90); RDW 13.2 % (11.5-15.5); WBC 11.1 k/uL (3.8-10.6)
[2021-10-21 19:03] LABS: Albumin 4.5 g/dL (3.5-5.0); Magnesium 2.3 mg/dL (1.6-2.3); Potassium 4.1 mmol/L (3.5-5.1); Total Bilirubin 0.4 mg/dL (0.2-1.3); Total Protein 7.6 g/dL (6.3-8.2)
[2021-10-21 19:05] LABS: Partial Thromboplastin Time 31.5 sec (22.0-30.0); Prothrombin Time 10.5 sec (9.0-12.0)
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
[2021-10-21] MEDS ORDERED: 0.9% NACL WITH KCL 20 MEQ/L 1,000 ML IV SCH (21:00)
[2021-10-21] MEDS ORDERED: ACETAMINOPHEN TAB 325 MG TAB PO PRN (21:00)
[2021-10-21] MEDS ORDERED: NALOXONE 0.4 MG/ML 1 ML VIAL IV PRN (21:00)
[2021-10-21 21:06] LABS: Appearance,Urine Clear (Clear); Bilirubin,Urine Negative (Negative); Blood,Urine Trace (Negative); Color,Urine Light Yellow; Glucose,Urine (UA) 1+ (Negative); Ketones,Urine Negative (Negative); Leukocyte Esterase,Urine Negative (Negative); Nitrite,Urine Negative (Negative); PH, Urine 6.5 (5.0-8.0); Protein,Urine 2+ (Negative); RBC,Urine <1 /hpf (0-5); Specific Gravity,Urine 1.014 (1.001-1.035); Urobilinogen,Urine <2.0 mg/dL (<2.0); WBC,Urine <1 /hpf (0-5)
[2021-10-21] MEDS: GABAPENTIN 300 MG CAP PO SCH (22:08)
[2021-10-21] MEDS: TAMSULOSIN 0.4 MG CAP.ER.24H PO SCH (22:08)
[2021-10-22] MEDS ORDERED: HEPARIN SODIUM 1,000 UN/ML (10ML VL) IV PRN (02:08)
[2021-10-22] MEDS ORDERED: HEPARIN SODIUM 1,000 UN/ML (10ML VL) IV ONE (02:08)
[2021-10-22] MEDS ORDERED: amLODIPine 5 MG TAB PO PRN (02:10)
[2021-10-22] MEDS ORDERED: ALPRAZolam 0.25 MG TAB PO STA (02:11)
[2021-10-22] MEDS ORDERED: HEPARIN SOD,PORK IN 0.45% NACL 25,000 UNIT in 0.45% NACL 1 250ML.BAG IV SCH (02:15)
[2021-10-22] MEDS ORDERED: SODIUM CHLORIDE 0.9% 1,000 ML IV SCH (02:15)
[2021-10-22 04:11] LABS: Basophils # (A) 0.1 k/uL (0-0.2); Basophils % (A) 1 %; Eosinophils # (A) 0.4 k/uL (0-0.7); Eosinophils % (A) 5 %; HCT 36.4 % (39.0-53.0); Lymphocytes # (A) 3.3 k/uL (1.0-4.8); Lymphocytes % (A) 37 %; MCH 33.6 pg (25.0-35.0); MCV 101.8 fL (80.0-100.0); Macrocytosis Slight; Mean Platelet Volume 9.7; Monocytes # (A) 0.4 k/uL (0-1.0); Monocytes % (A) 5 %; Neutrophils # (A) 4.5 k/uL (1.3-7.7); Neutrophils % (A) 51 %; Platelet Count 186 k/uL (150-450); RBC 3.57 m/uL (4.30-5.90); RDW 13.4 % (11.5-15.5); WBC 8.8 k/uL (3.8-10.6)
[2021-10-22 04:40] LABS: INR 1.1 (<1.2); Prothrombin Time 11.8 sec (9.0-12.0)
[2021-10-22 04:47] LABS: Partial Thromboplastin Time >200.0 sec (22.0-30.0)
[2021-10-22 06:08] LABS: Glucose,Whole Blood 115 mg/dL (75-99)
[2021-10-22] MEDS ORDERED: LEVOTHYROXINE 50 MCG TAB PO SCH (06:30)
[2021-10-22] MEDS ORDERED: INSULIN DETEMIR (LEVEMIR) 100 UNIT/ML SYR SQ SCH (07:00)
[2021-10-22] MEDS: GABAPENTIN 300 MG CAP PO SCH (08:27)
[2021-10-22] MEDS: TAMSULOSIN 0.4 MG CAP.ER.24H PO SCH (08:27)
[2021-10-22] MEDS ORDERED: lisinopriL 5 MG TAB PO SCH (09:00)
[2021-10-22] MEDS ORDERED: oxyCODONE-APAP 7.5-325MG 1 EACH TAB PO SCH (09:00)
[2021-10-22] MEDS ORDERED: amLODIPine 5 MG TAB PO SCH (09:00)
[2021-10-22] MEDS ORDERED: ASPIRIN 81 MG PO SCH (09:00)
[2021-10-22] MEDS ORDERED: amLODIPine 5 MG TAB PO ONE (09:00)
[2021-10-22] MEDS ORDERED: FLUTICASONE 50MCG/SPRAY NASAL 16GM EA NOSTRIL PRN (09:08)
[2021-10-22 09:14] LABS: Partial Thromboplastin Time 38.6 sec (22.0-30.0)
[2021-10-22] MEDS ORDERED: NON FORMULARY DRUG (Insulin Glargine,Hum.Rec.Anlog [Lantus Solostar Pen] 100 UNIT/ML Each) SQ SCH (09:15)
[2021-10-22] MEDS ORDERED: PANTOPRAZOLE 40 MG TABLET PO SCH (09:30)
[2021-10-22] MEDS ORDERED: FUROSEMIDE 40 MG TAB PO SCH (09:30)
[2021-10-22] MEDS ORDERED: GABAPENTIN 300 MG CAP PO SCH (09:30)
[2021-10-22] MEDS ORDERED: PRIMIDONE 50 MG TAB PO SCH (09:30)
[2021-10-22] MEDS ORDERED: SERTRALINE 100 MG TAB PO SCH (09:30)
[2021-10-22 11:15] VITALS: TEMP 98.8
[2021-10-22 11:37] LABS: Glucose,Whole Blood 137 mg/dL (75-99)
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
[2021-10-22] MEDS ORDERED: INSULIN ASPART (NovoLOG) 100 UNIT/ML VIAL SQ SCH (12:30)
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
[2021-10-22 12:52] VITALS: BP 137/85; PULSE 64; RESP 16
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
--- NOTE | 2021-10-22 15:42 | P.DS ---
Providers Date of admission: 10/21/21 21:00 Expected date of discharge: 10/22/21 Attending physician: Reilly Higginbotham Consults: 10/21/21 21:01 Consult Physician Routine Consulting Provider: Vicky Chow Consult Reason/Comments: Chest pain rule out Do you want consulting provider notified?: Yes Primary care physician: Reilly Higginbotham [facility] Course: Patient is a pleasant 81-year-old male that presented to the emergency room with chest discomfort that began without exertion. Also reported chills, lightheadedness, and mild dyspnea. Troponins were negative 3. Kidney function at baseline. Chest x-ray was negative for acute cardiopulmonary disease. EKGs show sinus rhythm with a left bundle branch block and a ventricular rate of 65 bpm. Patient with pertinent medical history of hypertension, hyperlipidemia, coronary artery disease, chronic kidney disease stage IV, type 2 diabetes, anxiety, depression, hypothyroidism, chronic back pain, BPH, restless leg syndrome, obstructive sleep apnea and osteoarthritis. Surgical history of TURP, back surgery with titanium rods, heart cath, prostate, and left eye prosthesis. Cardiology was consulted. Acute coronary syndrome was ruled out. Patient will follow with Dr. Green in the office, recommending 30 day event monitor. Patient will follow up in the office for anxiety treatment. Assessment: Chest pain, acute coronary syndrome ruled out Palpitations Hypertension Hyperlipidemia Type 2 diabetes Chronic kidney disease stage IV Anxiety Nonobstructive coronary artery disease Hypothyroidism Health Concerns: multiple comorbidities Pertinent Studies: chest xray-negative for acute process EKG- sinus rhythm with left bundle branch block Patient Condition at Discharge: Stable Plan - Discharge Summary Discharge Rx Participant: No New Discharge Prescriptions: New amLODIPine [Norvasc] 10 mg PO DAILY 30 Days #30 tablet Discontinued atenoloL [Tenormin] 25 mg PO DAILY No Action Sertraline [Zoloft] 200 mg PO DAILY rOPINIRole HCL [Requip] 0.5 mg PO HS Levothyroxine Sodium [Synthroid] 50 mcg PO DAILY calcitrioL [Calcitriol] 0.25 mcg PO SUMOWEFR Gabapentin 600 mg PO BID Tamsulosin [Flomax] 0.4 mg PO TID Nitroglycerin Sl Tabs [Nitrostat] 0.4 mg SUBLINGUAL Q5M PRN PRN Reason: Chest Pain Fluticasone Propionate 2 spray EA NOSTRIL DAILY PRN PRN Reason: Allergy Symptoms Insulin Glargine,Hum.rec.anlog [Lantus Solostar Pen] 30 units SQ DAILY oxyCODONE-APAP 7.5-325MG [Percocet 7.5-325 mg] 1 tab PO BID Rosuvastatin [Crestor] 20 mg PO HS Aspirin EC [Ecotrin Low Dose] 81 mg PO DAILY Albuterol Inhaler [Ventolin Hfa Inhaler] 2 puff INHALATION RT-QID PRN PRN Reason: Shortness Of Breath Cholecalciferol [Vitamin D3 (25 Mcg = 1000 Iu)] 25 mcg PO DAILY Omeprazole 40 mg PO DAILY Ergocalciferol (Vitamin D2) [Drisdol (50,000 Iu)] 1,250 mcg PO Q14D lisinopriL [Zestril] 5 mg PO DAILY Primidone [Mysoline] 150 mg PO BID Melatonin 20 mg PO HS Carboxymethylcellulose Sodium [Refresh Tears] 1 drop BOTH EYES Q12H PRN PRN Reason: Dry Eye(S) diphenhydrAMINE [Benadryl] 25 mg PO DAILY Multivit-Min/FA/Lycopen/Lutein [Centrum Silver Men Tablet] 1 tab PO DAILY Furosemide [Lasix] 40 mg PO DAILY Discharge Medication List Sertraline [Zoloft] 200 mg PO DAILY 02/18/16 [History] rOPINIRole HCL [Requip] 0.5 mg PO HS 08/20/16 [History] Levothyroxine Sodium [Synthroid] 50 mcg PO DAILY 12/11/18 [History] calcitrioL [Calcitriol] 0.25 mcg PO SUMOWEFR 12/11/18 [History] Gabapentin 600 mg PO BID 12/15/18 [History] Fluticasone Propionate 2 spray EA NOSTRIL DAILY PRN 07/11/20 [History] Nitroglycerin Sl Tabs [Nitrostat] 0.4 mg SUBLINGUAL Q5M PRN 07/11/20 [History] Tamsulosin [Flomax] 0.4 mg PO TID 07/11/20 [History] Primidone [Mysoline] 150 mg PO BID 01/26/21 [History] Insulin Glargine,Hum.rec.anlog [Lantus Solostar Pen] 30 units SQ DAILY 05/15/21 [History] Melatonin 20 mg PO HS 05/15/21 [History] Rosuvastatin [Crestor] 20 mg PO HS 05/15/21 [History] oxyCODONE-APAP 7.5-325MG [Percocet 7.5-325 mg] 1 tab PO BID 05/15/21 [History] Aspirin EC [Ecotrin Low Dose] 81 mg PO DAILY 06/17/21 [History] Albuterol Inhaler [Ventolin Hfa Inhaler] 2 puff INHALATION RT-QID PRN 07/09/21 [History] Carboxymethylcellulose Sodium [Refresh Tears] 1 drop BOTH EYES Q12H PRN 07/09/21 [History] Cholecalciferol [Vitamin D3 (25 Mcg = 1000 Iu)] 25 mcg PO DAILY 07/14/21 [History] Omeprazole 40 mg PO DAILY 07/14/21 [History] Ergocalciferol (Vitamin D2) [Drisdol (50,000 Iu)] 1,250 mcg PO Q14D 10/21/21 [History] Furosemide [Lasix] 40 mg PO DAILY 10/21/21 [History] Multivit-Min/FA/Lycopen/Lutein [Centrum Silver Men Tablet] 1 tab PO DAILY 10/21/21 [History] diphenhydrAMINE [Benadryl] 25 mg PO DAILY 10/21/21 [History] lisinopriL [Zestril] 5 mg PO DAILY 10/21/21 [History] amLODIPine [Norvasc] 10 mg PO DAILY 30 Days #30 tablet 10/22/21 [Rx] Follow up Appointment(s)/Referral(s): Reilly Higginbotham MD [Primary Care Provider] - 10/26/21 1:30 pm Savannah Hackett MD [STAFF PHYSICIAN] - As Needed Feliciano Green MD [STAFF PHYSICIAN] - 11/09/21 2:15 pm [facility], [NON-STAFF] - Patient Instructions/Handouts: Angina (DC), Acute Kidney Injury (DC), Bradycardia (DC) Discharge Disposition: HOME WITH HOME HEALTH SERVICES
[2021-10-22] MEDS ORDERED: ATORVASTATIN 40 MG TAB PO SCH (21:00)
[2021-10-22] MEDS ORDERED: MELATONIN 5 MG TABLET PO SCH (21:00)
[2021-10-23] MEDS ORDERED: amLODIPine 10 MG TAB PO SCH (09:00)
== END 2021-10-22 16:12 | disposition home health service (06) ==
LOC: EC 15:38 → 3SCARD 21:00
PROVIDERS: ADMIT Family Medicine; ATTEND Family Medicine
DX: R07.2 Precordial pain (principal); R00.2 Palpitations; I12.9 Hypertensive chronic kidney disease with stage 1 through stage 4 chronic kidney disease, or unspecified chronic kidney disease; E11.40 Type 2 diabetes mellitus with diabetic neuropathy, unspecified; E11.22 Type 2 diabetes mellitus with diabetic chronic kidney disease; N18.4 Chronic kidney disease, stage 4 (severe); F41.0 Panic disorder [episodic paroxysmal anxiety]; I25.10 Atherosclerotic heart disease of native coronary artery without angina pectoris; E03.9 Hypothyroidism, unspecified; E78.5 Hyperlipidemia, unspecified; R68.83 Chills (without fever); R06.00 Dyspnea, unspecified; R06.4 Hyperventilation; R42 Dizziness and giddiness; R06.02 Shortness of breath; D72.829 Elevated white blood cell count, unspecified; R00.1 Bradycardia, unspecified; I48.91 Unspecified atrial fibrillation; K21.9 Gastro-esophageal reflux disease without esophagitis; M19.90 Unspecified osteoarthritis, unspecified site; K44.9 Diaphragmatic hernia without obstruction or gangrene; G89.29 Other chronic pain; M54.9 Dorsalgia, unspecified; N40.0 Benign prostatic hyperplasia without lower urinary tract symptoms; G25.81 Restless legs syndrome; G47.33 Obstructive sleep apnea (adult) (pediatric); G43.909 Migraine, unspecified, not intractable, without status migrainosus; I73.9 Peripheral vascular disease, unspecified; F32.A Depression, unspecified; I08.1 Rheumatic disorders of both mitral and tricuspid valves; I44.7 Left bundle-branch block, unspecified; K57.90 Diverticulosis of intestine, part unspecified, without perforation or abscess without bleeding; G62.9 Polyneuropathy, unspecified; Z20.822 Contact with and (suspected) exposure to COVID-19; Z79.899 Other long term (current) drug therapy; Z79.890 Hormone replacement therapy; Z79.82 Long term (current) use of aspirin; Z79.4 Long term (current) use of insulin; Z79.891 Long term (current) use of opiate analgesic; Z90.49 Acquired absence of other specified parts of digestive tract; Z90.79 Acquired absence of other genital organ(s); Z96.1 Presence of intraocular lens; Z97.0 Presence of artificial eye; Z96.651 Presence of right artificial knee joint; Z85.038 Personal history of other malignant neoplasm of large intestine; Z87.01 Personal history of pneumonia (recurrent); Z87.891 Personal history of nicotine dependence; Z82.49 Family history of ischemic heart disease and other diseases of the circulatory system; Z80.8 Family history of malignant neoplasm of other organs or systems
CPT/HCPCS: 96376; 96365; 96366; 99285; 36415; 93005; 93270; 85379; 80053; 83735; 84484 ×2; 85025 ×2; 85610 ×2; 85730 ×2; 81001; 87635; 71046; G0378 ×2; J1644 ×2

== ENCOUNTER 2021-11-09 13:17 | Inpatient (IN) | payer MEDICARE ==
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
[2021-11-09 14:09] LABS: Basophils % (A) 0 %; Eosinophils # (A) 0.2 k/uL (0-0.7); Eosinophils % (A) 3 %; HCT 32.5 % (39.0-53.0); HGB 11.1 gm/dL (13.0-17.5); Lymphocytes # (A) 1.6 k/uL (1.0-4.8); Lymphocytes % (A) 22 %; MCH 34.6 pg (25.0-35.0); MCHC 34.1 g/dL (31.0-37.0); MCV 101.4 fL (80.0-100.0); Macrocytosis Slight; Monocytes # (A) 0.4 k/uL (0-1.0); Monocytes % (A) 5 %; Neutrophils # (A) 5.2 k/uL (1.3-7.7); Neutrophils % (A) 69 %; Platelet Count 156 k/uL (150-450); RBC 3.21 m/uL (4.30-5.90); RDW 14.1 % (11.5-15.5); WBC 7.5 k/uL (3.8-10.6)
[2021-11-09 14:20] LABS: Calcium 8.3 mg/dL (8.4-10.2); Potassium 3.5 mmol/L (3.5-5.1)
[2021-11-09 14:28] LABS: Partial Thromboplastin Time 32.5 sec (22.0-30.0); Prothrombin Time 10.5 sec (9.0-12.0)
[2021-11-09] MEDS ORDERED: ASPIRIN 81 MG PO STA (15:01)
--- NOTE | 2021-11-09 15:17 | XR ---
EXAMINATION TYPE: XR chest 1V portable DATE OF EXAM: 11/09/2021 COMPARISON: Chest x-ray 10/21/2021 HISTORY: Chest pain TECHNIQUE: Single frontal view of the chest is obtained. FINDINGS: There is no focal air space opacity, pleural effusion, or pneumothorax seen. The cardiac silhouette size is stable accounting for differences in technique. There is overlying artifact. Patie nt is rotated, right hemidiaphragm is elevated. Aorta is dense. There are overlying leads. There is e lectronic device over the left pectoral region. The osseous structures are intact. IMPRESSION: Expiratory rotated exam, follow-up as indicated
[2021-11-09] MEDS ORDERED: NITROGLYCERIN SL TABS 0.4 MG TAB SUBLINGUAL PRN ×2 (15:49→20:07)
--- NOTE | 2021-11-09 16:19 | ED ---
Medical Decision Making - Lab Data Result diagrams: 11/09/21 13:59 11/09/21 13:59 Lab Results 11/09/21 11/09/21 11/09/21 Range/Units 13:59 13:59 13:59 WBC 7.5 (3.8-10.6) k/uL RBC 3.21 L (4.30-5.90) m/uL Hgb 11.1 L (13.0-17.5) gm/dL Hct 32.5 L (39.0-53.0) % MCV 101.4 H (80.0-100.0) fL MCH 34.6 (25.0-35.0) pg MCHC 34.1 (31.0-37.0) g/dL RDW 14.1 (11.5-15.5) % Plt Count 156 (150-450) k/uL MPV 10.0 Neutrophils % 69 % Lymphocytes % 22 % Monocytes % 5 % Eosinophils % 3 % Basophils % 0 % Neutrophils # 5.2 (1.3-7.7) k/uL Lymphocytes # 1.6 (1.0-4.8) k/uL Monocytes # 0.4 (0-1.0) k/uL Eosinophils # 0.2 (0-0.7) k/uL Basophils # 0.0 (0-0.2) k/uL Macrocytosis Slight PT 10.5 (9.0-12.0) sec INR 1.0 (<1.2) APTT 32.5 H (22.0-30.0) sec Sodium 139 (137-145) mmol/L Potassium 3.5 (3.5-5.1) mmol/L Chloride 105 (98-107) mmol/L Carbon Dioxide 23 (22-30) mmol/L Anion Gap 11 mmol/L BUN 32 H (9-20) mg/dL Creatinine 2.51 H (0.66-1.25) mg/dL Est GFR (CKD-EPI)AfAm 26 (>60 ml/min/1.73 sqM) Est GFR (CKD-EPI)NonAf 23 (>60 ml/min/1.73 sqM) Glucose 172 H (74-99) mg/dL Calcium 8.3 L (8.4-10.2) mg/dL Troponin I (0.000-0.034) ng/mL Lipase 69 (23-300) U/L 11/09/21 Range/Units 13:59 WBC (3.8-10.6) k/uL RBC (4.30-5.90) m/uL Hgb (13.0-17.5) gm/dL Hct (39.0-53.0) % MCV (80.0-100.0) fL MCH (25.0-35.0) pg MCHC (31.0-37.0) g/dL RDW (11.5-15.5) % Plt Count (150-450) k/uL MPV Neutrophils % % Lymphocytes % % Monocytes % % Eosinophils % % Basophils % % Neutrophils # (1.3-7.7) k/uL Lymphocytes # (1.0-4.8) k/uL Monocytes # (0-1.0) k/uL Eosinophils # (0-0.7) k/uL Basophils # (0-0.2) k/uL Macrocytosis PT (9.0-12.0) sec INR (<1.2) APTT (22.0-30.0) sec Sodium (137-145) mmol/L Potassium (3.5-5.1) mmol/L Chloride (98-107) mmol/L Carbon Dioxide (22-30) mmol/L Anion Gap mmol/L BUN (9-20) mg/dL Creatinine (0.66-1.25) mg/dL Est GFR (CKD-EPI)AfAm (>60 ml/min/1.73 sqM) Est GFR (CKD-EPI)NonAf (>60 ml/min/1.73 sqM) Glucose (74-99) mg/dL Calcium (8.4-10.2) mg/dL Troponin I 0.019 (0.000-0.034) ng/mL Lipase (23-300) U/L Critical Care Time Critical Care Time: Yes Total Critical Care Time: 33 Disposition Clinical Impression: Chest pain, Heart block Disposition: ADMITTED IP TO THIS [facility] Condition: Serious
[2021-11-09 20:47] LABS: Glucose,Whole Blood 179 mg/dL (75-99)
[2021-11-09] MEDS: GABAPENTIN 300 MG CAP PO SCH (20:52)
[2021-11-09] MEDS: oxyCODONE-APAP 7.5-325MG 1 EACH TAB PO SCH (20:53)
[2021-11-09] MEDS: INSULIN ASPART (NovoLOG) 100 UNIT/ML VIAL SQ SCH (20:53)
[2021-11-09] MEDS: PRIMIDONE 50 MG TAB PO SCH (20:53)
[2021-11-09] MEDS: TAMSULOSIN 0.4 MG CAP.ER.24H PO SCH (20:54)
[2021-11-09] MEDS: SODIUM BICARBONATE TAB 650 MG TAB PO SCH (20:54)
[2021-11-09] MEDS: hydrALAZINE HCL 50 MG TAB PO SCH (20:54)
[2021-11-09] MEDS ORDERED: TEMAZEPAM 30 MG CAP PO SCH (21:00)
[2021-11-09] MEDS ORDERED: TEMAZEPAM 15 MG CAP PO SCH (21:01)
[2021-11-09] MEDS: TEMAZEPAM 15 MG CAP PO SCH (21:32)
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
[2021-11-09] MEDS: ALBUTEROL NEBULIZED 2.5 MG/3 ML INHALATION SCH (22:14)
[2021-11-09] MEDS: HEPARIN SODIUM,PORCINE/PF 5,000 UNIT/0.5 ML SYRINGE SQ SCH (23:00)
[2021-11-10] MEDS: LEVOTHYROXINE 50 MCG TAB PO SCH (06:16)
[2021-11-10 06:17] LABS: Glucose,Whole Blood 121 mg/dL (75-99)
[2021-11-10] MEDS: INSULIN ASPART (NovoLOG) 100 UNIT/ML VIAL SQ SCH ×4 (06:19→20:37)
[2021-11-10] MEDS: INSULIN DETEMIR (LEVEMIR) 100 UNIT/ML SYR SQ SCH (06:19)
[2021-11-10] MEDS: ALBUTEROL NEBULIZED 2.5 MG/3 ML INHALATION SCH ×4 (07:59→19:17)
[2021-11-10] MEDS ORDERED: NON FORMULARY DRUG (Aspirin Ec 81 MG Tablet) PO SCH (09:00)
[2021-11-10] MEDS ORDERED: ASPIRIN 325 MG TAB PO SCH (09:00)
[2021-11-10] MEDS ORDERED: SERTRALINE 100 MG TAB PO SCH (09:00)
[2021-11-10] MEDS ORDERED: NON FORMULARY DRUG (Omega-3 Fatty Acids/Fish Oil [Fish Oil 1,000 Mg Softgel] 1 EACH Capsul PO SCH (09:00)
[2021-11-10] MEDS ORDERED: SERTRALINE 50 MG TAB PO SCH (09:00)
[2021-11-10] MEDS ORDERED: ceFAZolin 1,000 MG in SODIUM CHLORIDE 0.9% IRRIG BTL 250 ML IRRIGATION ONE (10:05)
[2021-11-10] MEDS ORDERED: fentaNYL (PF) 50 MCG/ML 2 ML AMP ONE (10:32)
[2021-11-10] MEDS ORDERED: MIDAZOLAM 2 MG/2 ML VIAL ONE (10:32)
[2021-11-10] MEDS ORDERED: LIDOCAINE 1% INJ 10MG/ML (20 ML MDV) ONE (10:51)
[2021-11-10] MEDS ORDERED: SODIUM CHLORIDE 0.9% 500 ML 500 ML IV ONE (11:12)
[2021-11-10] MEDS ORDERED: IOPAMIDOL-370 100ML BTL INJ ONE (11:12)
[2021-11-10] MEDS ORDERED: LIDOCAINE 1% INJ 10MG/ML (20 ML MDV) SQ ONE ×2 (11:34→11:42)
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
[2021-11-10] MEDS ORDERED: NITROGLYCERIN OINT 1 INCH/GM PACKET TOPICAL ONE ×2 (11:47→11:51)
[2021-11-10] MEDS: amLODIPine 10 MG TAB PO SCH (12:17)
[2021-11-10 12:31] LABS: Chol/HDL Ratio 3.91 Ratio; LDL Cholesterol,Calculated 74.3 mg/dL (0.0-131.0)
--- NOTE | 2021-11-10 12:41 | P.EPPROC ---
- EP Procedure Note Electrophysiology Procedure Note: Left upper extremity venogram 10 mL IV dye injected in the left arm Patent axillary and subclavian venous system of the left-sided Patent central venous circulation to the right atrium. Plan proceed with dual-chamber pacemaker implant
--- NOTE | 2021-11-10 12:52 | P.EPPROC ---
- EP Procedure Note Electrophysiology Procedure Note: Diagnosis Bradycardia, 2-1 heart block, normal LV function Permanent 2-1 AV block Procedure Dual-chamber pacemaker implantation Details Patient was brought to the EP lab in a fasting state. Written informed consent was obtained prior to the procedure. Conscious sedation provided by anesthesia team IV antibiotics administered. Local anesthesia administered. A 4 cm incision made in the pectoral area. Subfascial pocket made. Venous access obtained Venous sheaths placed. Leads placed in the right heart Atrial lead position the right atrial appendage. Active fix lead [facility], threshold 1 V at 0.4 ms P waves 3.4 mV, pacing impedance 430 ohms, 10 V test negative RV lead position in the RV apex. Active fix lead [facility] R waves 5 mV, pacing impedance 790 ohms and threshold 0.75 V at 0.4 ms Dual-chamber pacemaker device connected to the leads and placed in the subfascial pocket Patient tolerated the procedure well without acute complications Pacemaker programmed DDD 60 to 130 with normal AV delay
--- NOTE | 2021-11-10 12:52 | P.PN ---
Subjective Progress Note Date: 11/10/21 Principal diagnosis: chest pain Patient is a pleasant 81-year-old male that presented to the emergency room with chest pain. Patient also reported diaphoresis and nausea. Patient has a pertinent medical history of hypertension, hyperlipidemia, coronary artery disease, chronic kidney disease stage IV, type 2 diabetes, anxiety, depression, hypothyroidism, BPH, restless leg syndrome, obstructive sleep apnea and osteoarthritis. Patient was found to be in a second-degree heart block. Troponins and chest x-ray were normal. Acute coronary syndrome was ruled out. Cardiology was consulted. Patient was admitted to hospitalists 11/09/21. 11/10/2021 Patient was seen and examined at bedside. Patient is resting comfortably in bed. Patient denies present chest pain. Denies shortness of breath, abdominal pain, dizziness, headache. He states he is waiting to go down for surgery for permanent pacemaker placement. We will await postoperative recommendations. Objective - Vital Signs Vital signs: Vital Signs Temp 98.3 F 11/10/21 08:00 Pulse 57 L 11/10/21 08:00 Resp 18 11/10/21 08:00 BP 189/91 11/10/21 08:00 Pulse Ox 95 11/10/21 08:00 Intake & Output 11/09/21 11/10/21 11/10/21 18:59 06:59 18:59 Weight 76.204 kg Other: Voiding Method Toilet # Voids 1 1 - Constitutional General appearance: Present: average body habitus, cooperative - EENT Eyes: Present: EOMI, PERRLA ENT: Present: normal oropharynx Ears: bilateral: normal - Neck Neck: Present: normal ROM Carotids: bilateral: upstroke normal Thyroid: bilateral: normal size - Respiratory Respiratory: bilateral: diminished - Cardiovascular Heart rate: 50 Rhythm: regular - Peripheral pulses radial pulse Peripheral Pulses: bilateral: Normal - Gastrointestinal General gastrointestinal: Present: normal bowel sounds, soft - Integumentary Integumentary: Present: normal, normal turgor - Neurologic Neurologic: Present: CNII-XII intact - Musculoskeletal Musculoskeletal: Present: gait normal - Psychiatric Psychiatric: Present: A&O x's 3, appropriate affect, intact judgment & insight - Allied health notes Allied health notes reviewed: nursing - Labs CBC & Chem 7: 11/09/21 13:59 02/28/22 13:59 Labs: Abnormal Lab Results - Last 24 Hours (Table) 11/09/21 11/09/21 11/09/21 Range/Units 13:59 13:59 13:59 RBC 3.21 L (4.30-5.90) m/uL Hgb 11.1 L (13.0-17.5) gm/dL Hct 32.5 L (39.0-53.0) % MCV 101.4 H (80.0-100.0) fL APTT 32.5 H (22.0-30.0) sec BUN 32 H (9-20) mg/dL Creatinine 2.51 H (0.66-1.25) mg/dL Glucose 172 H (74-99) mg/dL POC Glucose (mg/dL) (75-99) mg/dL Calcium 8.3 L (8.4-10.2) mg/dL Magnesium (1.6-2.3) mg/dL 11/09/21 11/09/21 11/10/21 Range/Units 13:59 20:45 06:14 RBC (4.30-5.90) m/uL Hgb (13.0-17.5) gm/dL Hct (39.0-53.0) % MCV (80.0-100.0) fL APTT (22.0-30.0) sec BUN (9-20) mg/dL Creatinine (0.66-1.25) mg/dL Glucose (74-99) mg/dL POC Glucose (mg/dL) 179 H 121 H (75-99) mg/dL Calcium (8.4-10.2) mg/dL Magnesium 2.4 H (1.6-2.3) mg/dL - Imaging and Cardiology Chest x-ray: report reviewed Assessment and Plan Assessment: Chest pain, acute coronary syndrome ruled out Second-degree AV block Acute on chronic kidney disease stage IV Type 2 diabetes Hypertension hyperlipidemia hypothyroidism Peripheral neuropathy Osteoarthritis History of A. fib Anxiety and depression BPH History of colon cancer with bowel resection Plan: Patient is scheduled to undergo permanent pacemaker placement, continue following with cardiology recommendations reassess BUN and creat after procedure Continue to monitor glucose control, sliding scale and home dose insulin ordered Continue home medications Continue to monitor vital signs Further recommendations to come based on patient's clinical course Time with Patient: Greater than 30
[2021-11-10] MEDS: ASPIRIN 81 MG PO SCH (13:11)
[2021-11-10] MEDS: HEPARIN SODIUM,PORCINE/PF 5,000 UNIT/0.5 ML SYRINGE SQ SCH ×3 (13:11→22:57)
[2021-11-10] MEDS: ATORVASTATIN 40 MG TAB PO SCH (13:12)
[2021-11-10] MEDS: MULTIVITAMINS, THERA 1 EACH TAB PO SCH (13:13)
[2021-11-10] MEDS: GABAPENTIN 300 MG CAP PO SCH ×2 (13:13→18:36)
[2021-11-10] MEDS: hydrALAZINE HCL 50 MG TAB PO SCH ×4 (13:13→20:38)
[2021-11-10] MEDS: LACTOBACILLUS ACIDOPH & BULGAR 1 EACH PACKET PO SCH (13:13)
[2021-11-10] MEDS: oxyCODONE-APAP 7.5-325MG 1 EACH TAB PO SCH ×3 (13:13→19:44)
[2021-11-10] MEDS: FUROSEMIDE 40 MG TAB PO SCH (13:13)
[2021-11-10] MEDS: PANTOPRAZOLE 40 MG TABLET PO SCH (13:23)
[2021-11-10] MEDS: SODIUM BICARBONATE TAB 650 MG TAB PO SCH ×2 (13:23→20:38)
[2021-11-10] MEDS: SERTRALINE 50 MG TAB PO SCH (13:34)
[2021-11-10] MEDS: PRIMIDONE 50 MG TAB PO SCH ×2 (13:34→20:38)
[2021-11-10] MEDS: TAMSULOSIN 0.4 MG CAP.ER.24H PO SCH ×3 (13:40→20:38)
--- NOTE | 2021-11-10 15:46 | XR ---
EXAMINATION TYPE: XR chest 1V portable DATE OF EXAM: 11/10/2021 CLINICAL HISTORY: Difficulty breathing and arrhythmia. TECHNIQUE: Single AP portable semiupright view of the chest is obtained. COMPARISON: Chest x-ray from one day earlier FINDINGS: New dual-lead pacemaker with leads projecting over the right atrium and right ventricle. N o pneumothorax seen after pacemaker placement. Stable mild cardiomegaly. Lungs remain clear. Osseous structures are intact. IMPRESSION: As above.
[2021-11-10 16:14] LABS: Glucose,Whole Blood 244 mg/dL (75-99)
[2021-11-10] MEDS: ACETAMINOPHEN TAB 325 MG TAB PO PRN ×2 (16:19→22:57)
[2021-11-10 20:28] LABS: Glucose,Whole Blood 253 mg/dL (75-99)
[2021-11-10] MEDS: TEMAZEPAM 15 MG CAP PO SCH (21:44)
[2021-11-11 06:05] LABS: Glucose,Whole Blood 136 mg/dL (75-99)
[2021-11-11] MEDS: LEVOTHYROXINE 50 MCG TAB PO SCH (06:08)
[2021-11-11] MEDS: ACETAMINOPHEN TAB 325 MG TAB PO PRN ×2 (06:08→13:07)
[2021-11-11] MEDS: INSULIN ASPART (NovoLOG) 100 UNIT/ML VIAL SQ SCH ×4 (06:08→20:31)
[2021-11-11] MEDS: INSULIN DETEMIR (LEVEMIR) 100 UNIT/ML SYR SQ SCH (06:15)
[2021-11-11 07:25] LABS: Basophils % (A) 1 %; Eosinophils # (A) 0.2 k/uL (0-0.7); Eosinophils % (A) 2 %; HCT 35.4 % (39.0-53.0); HGB 11.6 gm/dL (13.0-17.5); Lymphocytes # (A) 1.4 k/uL (1.0-4.8); Lymphocytes % (A) 19 %; MCHC 32.9 g/dL (31.0-37.0); MCV 103.5 fL (80.0-100.0); Macrocytosis Slight; Mean Platelet Volume 9.5; Monocytes # (A) 0.4 k/uL (0-1.0); Monocytes % (A) 5 %; Neutrophils # (A) 5.4 k/uL (1.3-7.7); Neutrophils % (A) 72 %; Platelet Count 171 k/uL (150-450); RBC 3.42 m/uL (4.30-5.90); RDW 13.8 % (11.5-15.5); WBC 7.4 k/uL (3.8-10.6)
[2021-11-11] MEDS: ALBUTEROL NEBULIZED 2.5 MG/3 ML INHALATION SCH ×3 (07:41→21:07)
[2021-11-11 07:45] LABS: Albumin 3.5 g/dL (3.5-5.0); Calcium 8.1 mg/dL (8.4-10.2); Magnesium 2.2 mg/dL (1.6-2.3); Potassium 3.5 mmol/L (3.5-5.1); Total Bilirubin 0.4 mg/dL (0.2-1.3); Total Protein 6.3 g/dL (6.3-8.2)
[2021-11-11] MEDS: SERTRALINE 50 MG TAB PO SCH (08:32)
[2021-11-11] MEDS: amLODIPine 10 MG TAB PO SCH (08:32)
[2021-11-11] MEDS: TAMSULOSIN 0.4 MG CAP.ER.24H PO SCH ×3 (08:32→20:31)
[2021-11-11] MEDS: ATORVASTATIN 40 MG TAB PO SCH (08:33)
[2021-11-11] MEDS: PRIMIDONE 50 MG TAB PO SCH ×2 (08:33→20:29)
[2021-11-11] MEDS: MULTIVITAMINS, THERA 1 EACH TAB PO SCH (08:33)
[2021-11-11] MEDS: GABAPENTIN 300 MG CAP PO SCH ×2 (08:33→20:31)
[2021-11-11] MEDS: oxyCODONE-APAP 7.5-325MG 1 EACH TAB PO SCH ×2 (08:33→20:30)
[2021-11-11] MEDS: ASPIRIN 81 MG PO SCH (08:33)
[2021-11-11] MEDS: PANTOPRAZOLE 40 MG TABLET PO SCH (08:33)
[2021-11-11] MEDS: SODIUM BICARBONATE TAB 650 MG TAB PO SCH ×2 (08:33→20:31)
[2021-11-11] MEDS: HEPARIN SODIUM,PORCINE/PF 5,000 UNIT/0.5 ML SYRINGE SQ SCH ×3 (08:33→23:48)
[2021-11-11] MEDS: FUROSEMIDE 40 MG TAB PO SCH (08:34)
[2021-11-11] MEDS: FUROSEMIDE 20 MG TAB PO SCH (08:35)
[2021-11-11] MEDS: LACTOBACILLUS ACIDOPH & BULGAR 1 EACH PACKET PO SCH (08:35)
[2021-11-11] MEDS: carvediloL 6.25 MG TAB PO SCH ×2 (08:40→17:51)
[2021-11-11 11:39] LABS: Glucose,Whole Blood 225 mg/dL (75-99)
[2021-11-11] MEDS ORDERED: MAG HYDROX/AL HYDROX/SIMETH 30 ML CUP PO PRN (12:43)
--- NOTE | 2021-11-11 13:05 | P.PN ---
Subjective Progress Note Date: 11/11/21 HISTORY OF PRESENT ILLNESS: This is a 81 year old male with a past medical history significant for coronary artery disease with 50% LAD lesion, hypertension, hyperlipidemia, and diabetes. Patient follows in the office with Dr. Green. We have been asked to see the patient in consultation for chest pain and heart block. Patient examined at the bedside. Patient presented to the ER with a chief complaint of nausea and lightheadedness. He states this began about 3-4 weeks ago. He currently denies chest pain or pressure. Denies SOB. EKG completed revealed second degree heart block. * EKG reveals second block heart block * Chest xray no focal airspace opacity, pleural effusion, or pneumothorax seen. * Laboratory data: WBC 7.5. Hemoglobin 11.1 plan account 156. Sodium 139. Potassium 3.5. BUN 32. Creatinine 2.51. Troponin negative 3. * Current home cardiac medications include aspirin 81 mg daily, hydralazine 50 mg 3 times a day, amlodipine 10 mg daily, Crestor 20 mg daily, Lasix 40 mg daily * Most recent echocardiogram obtained in May 2021 revealed ejection fraction 50-55%, mild mitral regurgitation, and mild tricuspid regurgitation * Cardiac catheterization history: February 2010 revealing normal ejection fraction 50% mid LAD lesion * Patient underwent Lexiscan stress test in June 2021 which was negative for ischemia 11/11/2021 Patient is status post dual-chamber pacemaker implantation. Postop day #1. Patient examined this morning at the bedside. Patient reports some discomfort at the pacemaker incision site. Chest x-ray completed this morning revealing new dual-lead pacemaker with leads projecting over the right atrium and right v entricle. No pneumothorax seen. Stable mild cardiomegaly. Patient's blood pressure was elevated yesterday and his medication regimen was adjusted. PHYSICAL EXAM: VITAL SIGNS: Reviewed. GENERAL: Well-developed in no acute distress. HEENT: Head is normocephalic. Pupils are equal, round. Sclerae anicteric. Mucous membranes of the mouth are moist. Neck supple. No JVD or thyromegaly LUNGS: Respirations even and unlabored. Lungs essentially clear to auscultation bilaterally. HEART: Regular rate and rhythm. S1 and S2 heard. ABDOMEN: Soft. Nondistended. Nontender. EXTREMITIES: Normal range of motion. No clubbing or cyanosis. Peripheral pulses intact. No lower extremity edema NEUROLOGIC: Awake and alert. Oriented x 3. ASSESSMENT: Second degree heart block, status post dual-chamber pacemaker implantation Coronary artery disease with 50% LAD lesion Hypertension Hyperlipidemia Diabetes PLAN: Antihypertensive medications adjusted. Continue to monitor BP Decrease lasix to 20mg daily Further recommendations pending patient course Nurse practitioner note has been reviewed by physician. Signing provider agrees with the documented findings, assessment, and plan of care. Objective - Vital Signs Vital signs: Vital Signs Temp 98.2 F 11/11/21 08:00 Pulse 84 11/11/21 11:32 Resp 18 11/11/21 08:00 BP 167/77 11/11/21 08:00 Pulse Ox 95 11/11/21 08:00 Intake & Output 11/10/21 11/11/21 11/11/21 18:59 06:59 18:59 Intake Total 510 260 Output Total 575 Balance -65 260 Intake: IV 100 20 Invasive Line 1 10 Invasive Line 2 10 Intake, IV Titration 50 Amount ceFAZolin 2 gm In Sodium 50 Chloride 0.9% 50 ml @ 100 mls/hr IVPB Q6H [facility] Rx#: [id number] Oral 360 240 Output: Urine 575 Other: Voiding Method Toilet Urinal # Voids 1 1 1 - Labs CBC & Chem 7: 11/11/21 06:37 11/11/21 06:37 Labs: Abnormal Lab Results - Last 24 Hours (Table) 11/10/21 11/10/21 11/11/21 Range/Units 16:12 20:26 06:01 RBC (4.30-5.90) m/uL Hgb (13.0-17.5) gm/dL Hct (39.0-53.0) % MCV (80.0-100.0) fL Chloride (98-107) mmol/L BUN (9-20) mg/dL Creatinine (0.66-1.25) mg/dL Glucose (74-99) mg/dL POC Glucose (mg/dL) 244 H 253 H 136 H (75-99) mg/dL Calcium (8.4-10.2) mg/dL Alkaline Phosphatase (38-126) U/L 11/11/21 11/11/21 11/11/21 Range/Units 06:37 06:37 11:37 RBC 3.42 L (4.30-5.90) m/uL Hgb 11.6 L (13.0-17.5) gm/dL Hct 35.4 L (39.0-53.0) % MCV 103.5 H (80.0-100.0) fL Chloride 108 H (98-107) mmol/L BUN 23 H (9-20) mg/dL Creatinine 2.02 H (0.66-1.25) mg/dL Glucose 132 H (74-99) mg/dL POC Glucose (mg/dL) 225 H (75-99) mg/dL Calcium 8.1 L (8.4-10.2) mg/dL Alkaline Phosphatase 163 H (38-126) U/L
[2021-11-11] MEDS: DOCUSATE 100 MG CAP PO SCH ×2 (13:06→20:31)
[2021-11-11 16:36] LABS: Glucose,Whole Blood 141 mg/dL (75-99)
[2021-11-11 20:25] LABS: Glucose,Whole Blood 173 mg/dL (75-99)
[2021-11-11] MEDS: TEMAZEPAM 15 MG CAP PO SCH (20:31)
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
[2021-11-12 06:17] LABS: Glucose,Whole Blood 168 mg/dL (75-99)
[2021-11-12] MEDS: carvediloL 6.25 MG TAB PO SCH ×2 (06:30→15:17)
[2021-11-12] MEDS: INSULIN ASPART (NovoLOG) 100 UNIT/ML VIAL SQ SCH ×4 (06:30→20:33)
[2021-11-12] MEDS: LEVOTHYROXINE 50 MCG TAB PO SCH (06:30)
[2021-11-12 07:28] LABS: Basophils # (A) 0.1 k/uL (0-0.2); Basophils % (A) 1 %; Eosinophils # (A) 0.4 k/uL (0-0.7); Eosinophils % (A) 5 %; HCT 35.7 % (39.0-53.0); Lymphocytes # (A) 1.8 k/uL (1.0-4.8); Lymphocytes % (A) 23 %; MCH 34.2 pg (25.0-35.0); MCHC 33.5 g/dL (31.0-37.0); MCV 102.1 fL (80.0-100.0); Macrocytosis Slight; Mean Platelet Volume 9.6; Monocytes # (A) 0.4 k/uL (0-1.0); Monocytes % (A) 6 %; Neutrophils # (A) 5.3 k/uL (1.3-7.7); Neutrophils % (A) 65 %; Platelet Count 184 k/uL (150-450); RDW 13.8 % (11.5-15.5); WBC 8.1 k/uL (3.8-10.6)
[2021-11-12] MEDS: ALBUTEROL NEBULIZED 2.5 MG/3 ML INHALATION SCH ×3 (07:32→19:38)
[2021-11-12 07:45] LABS: Calcium 8.4 mg/dL (8.4-10.2); Potassium 3.8 mmol/L (3.5-5.1)
[2021-11-12] MEDS: DOCUSATE 100 MG CAP PO SCH ×2 (09:38→20:33)
[2021-11-12] MEDS: HEPARIN SODIUM,PORCINE/PF 5,000 UNIT/0.5 ML SYRINGE SQ SCH ×3 (09:38→23:03)
[2021-11-12] MEDS: FUROSEMIDE 20 MG TAB PO SCH (09:38)
[2021-11-12] MEDS: amLODIPine 10 MG TAB PO SCH (09:38)
[2021-11-12] MEDS: SODIUM BICARBONATE TAB 650 MG TAB PO SCH ×2 (09:38→20:32)
[2021-11-12] MEDS: ATORVASTATIN 40 MG TAB PO SCH (09:38)
[2021-11-12] MEDS: oxyCODONE-APAP 7.5-325MG 1 EACH TAB PO SCH ×2 (09:38→20:33)
[2021-11-12] MEDS: ASPIRIN 81 MG PO SCH (09:39)
[2021-11-12] MEDS: MULTIVITAMINS, THERA 1 EACH TAB PO SCH (09:39)
[2021-11-12] MEDS: PANTOPRAZOLE 40 MG TABLET PO SCH (09:39)
[2021-11-12] MEDS: PRIMIDONE 50 MG TAB PO SCH ×2 (09:39→20:32)
[2021-11-12] MEDS: GABAPENTIN 300 MG CAP PO SCH ×2 (09:39→20:32)
[2021-11-12] MEDS: SERTRALINE 50 MG TAB PO SCH (09:40)
[2021-11-12] MEDS: TAMSULOSIN 0.4 MG CAP.ER.24H PO SCH ×3 (09:41→20:33)
[2021-11-12] MEDS: LACTOBACILLUS ACIDOPH & BULGAR 1 EACH PACKET PO SCH (09:41)
[2021-11-12 11:33] LABS: Glucose,Whole Blood 137 mg/dL (75-99)
--- NOTE | 2021-11-12 11:41 | XR ---
EXAMINATION TYPE: XR chest 2V DATE OF EXAM: 11/12/2021 COMPARISON: X-ray dated 11/10/2021 HISTORY: Cough TECHNIQUE: Frontal and lateral views of the chest are obtained. FINDINGS: Questionable minimal infiltration in the left lung base retrocardiac in location. Please correlate cl inically for minimal infection. Grossly unremarkable lungs otherwise. No sizable pleural effusion or definite pneumothorax. Slightly increased density of medial aspect of the right third rib, possibly artifactual due to summa tion of shadows. No cardiomegaly. Aortic atherosclerotic calcification. Left upper chest wall dual-le ad pacemaker. Degenerative changes of the thoracic spine. IMPRESSION: Questionable small left lung base retrocardiac infiltration, otherwise no definite acute pulmonary in filtration identified. Incidental findings as described above.
[2021-11-12 12:28] VITALS: RESP 18
--- NOTE | 2021-11-12 12:35 | P.PN ---
Subjective Progress Note Date: 11/12/21 HISTORY OF PRESENT ILLNESS: This is a 81 year old male with a past medical history significant for coronary artery disease with 50% LAD lesion, hypertension, hyperlipidemia, and diabetes. Patient follows in the office with Dr. Green. We have been asked to see the patient in consultation for chest pain and heart block. Patient examined at the bedside. Patient presented to the ER with a chief complaint of nausea and lightheadedness. He states this began about 3-4 weeks ago. He currently denies chest pain or pressure. Denies SOB. EKG completed revealed second degree heart block. * EKG reveals second block heart block * Chest xray no focal airspace opacity, pleural effusion, or pneumothorax seen. * Laboratory data: WBC 7.5. Hemoglobin 11.1 plan account 156. Sodium 139. Potassium 3.5. BUN 32. Creatinine 2.51. Troponin negative 3. * Current home cardiac medications include aspirin 81 mg daily, hydralazine 50 mg 3 times a day, amlodipine 10 mg daily, Crestor 20 mg daily, Lasix 40 mg daily * Most recent echocardiogram obtained in May 2021 revealed ejection fraction 50-55%, mild mitral regurgitation, and mild tricuspid regurgitation * Cardiac catheterization history: February 2010 revealing normal ejection fraction 50% mid LAD lesion * Patient underwent Lexiscan stress test in June 2021 which was negative for ischemia 11/11/2021 Patient is status post dual-chamber pacemaker implantation. Postop day #1. Patient examined this morning at the bedside. Patient reports some discomfort at the pacemaker incision site. Chest x-ray completed this morning revealing new dual-lead pacemaker with leads projecting over the right atrium and right v entricle. No pneumothorax seen. Stable mild cardiomegaly. Patient's blood pressure was elevated yesterday and his medication regimen was adjusted. 11/12/2021 Patient examined this morning at the bedside. Patient denies SOB. Denies chest pain or pressure. Vital signs are stable. PHYSICAL EXAM: VITAL SIGNS: Reviewed. GENERAL: Well-developed in no acute distress. HEENT: Head is normocephalic. Pupils are equal, round. Sclerae anicteric. Mucous membranes of the mouth are moist. Neck supple. No JVD or thyromegaly LUNGS: Respirations even and unlabored. Lungs essentially clear to auscultation bilaterally. HEART: Regular rate and rhythm. S1 and S2 heard. ABDOMEN: Soft. Nondistended. Nontender. EXTREMITIES: Normal range of motion. No clubbing or cyanosis. Peripheral pu lses intact. No lower extremity edema NEUROLOGIC: Awake and alert. Oriented x 3. ASSESSMENT: Second degree heart block, status post dual-chamber pacemaker implantation Coronary artery disease with 50% LAD lesion Hypertension Hyperlipidemia Diabetes PLAN: Continue current cardiac medications Patient is stable for discharge home today Nurse practitioner note has been reviewed by physician. Signing provider agrees with the documented findings, assessment, and plan of care. Objective - Vital Signs Vital signs: Vital Signs Temp 98.3 F 11/12/21 11:56 Pulse 77 11/12/21 11:56 Resp 18 11/12/21 11:56 BP 166/80 11/12/21 11:56 Pulse Ox 99 11/12/21 11:56 Intake & Output 11/11/21 11/12/21 11/12/21 18:59 06:59 18:59 Intake Total 1308 978 Output Total 0 Balance 1308 978 Weight 75 kg Intake: IV 90 Invasive Line 1 20 Invasive Line 2 20 ceFAZolin 2 gm In Sodium 50 Chloride 0.9% 50 ml @ 100 mls/hr IVPB Q6H [facility] Rx#: [id number] Oral 1218 978 Output: Gastric Drainage 0 Emesis 0 Oral Regurgitation 0 Other 0 Other: # Voids 1 1 1 # Bowel Movements 0 - Labs CBC & Chem 7: 11/12/21 07:14 11/12/21 07:14 Labs: Abnormal Lab Results - Last 24 Hours (Table) 11/11/21 11/11/21 11/12/21 Range/Units 16:34 20:21 06:14 RBC (4.30-5.90) m/uL Hgb (13.0-17.5) gm/dL Hct (39.0-53.0) % MCV (80.0-100.0) fL BUN (9-20) mg/dL Creatinine (0.66-1.25) mg/dL Glucose (74-99) mg/dL POC Glucose (mg/dL) 141 H 173 H 168 H (75-99) mg/dL 11/12/21 11/12/21 11/12/21 Range/Units 07:14 07:14 11:31 RBC 3.50 L (4.30-5.90) m/uL Hgb 12.0 L (13.0-17.5) gm/dL Hct 35.7 L (39.0-53.0) % MCV 102.1 H (80.0-100.0) fL BUN 22 H (9-20) mg/dL Creatinine 2.13 H (0.66-1.25) mg/dL Glucose 118 H (74-99) mg/dL POC Glucose (mg/dL) 137 H (75-99) mg/dL
--- NOTE | 2021-11-12 13:01 | P.PN ---
Subjective Progress Note Date: 11/12/21 Principal diagnosis: chest pain Patient is a pleasant 81-year-old male that presented to the emergency room with chest pain. Patient also reported diaphoresis and nausea. Patient has a pertinent medical history of hypertension, hyperlipidemia, coronary artery disease, chronic kidney disease stage IV, type 2 diabetes, anxiety, depression, hypothyroidism, BPH, restless leg syndrome, obstructive sleep apnea and osteoarthritis. Patient was found to be in a second-degree heart block. Troponins and chest x-ray were normal. Acute coronary syndrome was ruled out. Cardiology was consulted. Patient was admitted to hospitalists 11/09/21. 11/10/2021 Patient was seen and examined at bedside. Patient is resting comfortably in bed. Patient denies present chest pain. Denies shortness of breath, abdominal pain, dizziness, headache. He states he is waiting to go down for surgery for permanent pacemaker placement. We will await postoperative recommendations. 11/11/2021- hospitalist coverage 11/12/2021 Patient was seen and evaluated at bedside. Patient reports soreness at Pacemaker placement site, also reports ongoing cough, chills, right-sided lung pain and dyspnea. Denies chest pain, or fever. Chest x-ray was ordered, found questionable small left lung base infiltration. Discussed going home and treating possible pneumonia outpatient, patient is anxious about going home and having to return to the hospital. Pulmonary was consulted to help determine plan of care. White count today was 8.1. BUN 22, creatinine 2.1 slightly higher than baseline, we'll continue to monitor. Patient was cleared to go home by cardiology, will monitor patient one more day to rule out pneumonia. Objective - Vital Signs Vital signs: Vital Signs Temp 98.3 F 11/12/21 11:56 Pulse 77 11/12/21 11:56 Resp 18 11/12/21 11:56 BP 166/80 11/12/21 11:56 Pulse Ox 99 11/12/21 11:56 Intake & Output 11/11/21 11/12/21 11/12/21 18:59 06:59 18:59 Intake Total 1308 978 Output Total 0 Balance 1308 978 Weight 75 kg Intake: IV 90 Invasive Line 1 20 Invasive Line 2 20 ceFAZolin 2 gm In Sodium 50 Chloride 0.9% 50 ml @ 100 mls/hr IVPB Q6H [facility] Rx#: [id number] Oral [id number] Output: Gastric Drainage 0 Emesis 0 Oral Regurgitation 0 Other 0 Other: # Voids 1 1 1 # Bowel Movements 0 - Constitutional General appearance: Present: no acute distress - EENT Eyes: Present: EOMI, PERRLA Ears: bilateral: normal - Neck Neck: Present: normal ROM Carotids: bilateral: upstroke normal - Respiratory Respiratory: bilateral: diminished, wheezing - Cardiovascular Heart rate: 70 Rhythm: regular Heart sounds: normal: S1, S2 - Peripheral pulses radial pulse Peripheral Pulses: bilateral: Normal - Gastrointestinal General gastrointestinal: Present: normal bowel sounds, soft - Integumentary Integumentary: Present: normal - Neurologic Neurologic: Present: CNII-XII intact - Musculoskeletal Musculoskeletal: Present: gait normal - Psychiatric Psychiatric: Present: A&O x's 3, appropriate affect, intact judgment & insight - Allied health notes Allied health notes reviewed: nursing - Labs CBC & Chem 7: 11/12/21 07:14 11/12/21 07:14 Labs: Abnormal Lab Results - Last 24 Hours (Table) 11/11/21 11/11/21 11/12/21 Range/Units 16:34 20:21 06:14 RBC (4.30-5.90) m/uL Hgb (13.0-17.5) gm/dL Hct (39.0-53.0) % MCV (80.0-100.0) fL BUN (9-20) mg/dL Creatinine (0.66-1.25) mg/dL Glucose (74-99) mg/dL POC Glucose (mg/dL) 141 H 173 H 168 H (75-99) mg/dL 11/12/21 11/12/21 11/12/21 Range/Units 07:14 07:14 11:31 RBC 3.50 L (4.30-5.90) m/uL Hgb 12.0 L (13.0-17.5) gm/dL Hct 35.7 L (39.0-53.0) % MCV 102.1 H (80.0-100.0) fL BUN 22 H (9-20) mg/dL Creatinine 2.13 H (0.66-1.25) mg/dL Glucose 118 H (74-99) mg/dL POC Glucose (mg/dL) 137 H (75-99) mg/dL - Imaging and Cardiology Chest x-ray: report reviewed Assessment and Plan Assessment: Chest pain, acute coronary syndrome ruled out Second-degree AV block, status post pacemaker placement new right lung pain, with persistent cough Acute on chronic kidney disease stage IV Type 2 diabetes Hypertension hyperlipidemia hypothyroidism Peripheral neuropathy Osteoarthritis History of A. fib Anxiety and depression BPH History of colon cancer with bowel resection Plan: Patient is status post dual-chamber pacemaker, cleared by cardiology for discharge New-onset cough and right-sided lung pain, pulmonology consult reassess BUN and creat daily for worsening levels Continue to monitor glucose control, sliding scale and home dose insulin ordered Continue home medications Continue to monitor vital signs Further recommendations to come based on patient's clinical course Time with Patient: Greater than 30
[2021-11-12] MEDS: INSULIN DETEMIR (LEVEMIR) 100 UNIT/ML SYR SQ SCH (15:09)
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
[2021-11-12 16:17] LABS: Glucose,Whole Blood 133 mg/dL (75-99)
[2021-11-12] MEDS: guaiFENesin-DM 100-10MG/5ML 10 ML CUP PO PRN ×2 (17:11→23:11)
[2021-11-12 20:03] LABS: Glucose,Whole Blood 113 mg/dL (75-99)
[2021-11-12] MEDS: TEMAZEPAM 15 MG CAP PO SCH (20:32)
--- NOTE | 2021-11-12 21:02 | CT ---
EXAMINATION TYPE: CT chest wo con CT DLP: 405.3 mGycm, Automated exposure control for dose reduction was used. DATE OF EXAM: 11/12/2021 5:30 PM COMPARISON: Chest radiograph from same day. CT chest 07/10/2021 CLINICAL INDICATION:Male, 81 years old with history of shortness of breath; TECHNIQUE: Multiple axial images were obtained through the chest without IV contrast. Lack of IV or o ral contrast limits evaluation of solid and hollow organ viscera. FINDINGS: LUNGS/ PLEURA: Low lung volumes are present. Mild pulmonary vascular congestion suggested. No evidenc e of focal consolidation, pneumothorax or pleural effusion. AIRWAY: Patent and unremarkable. HEART: Myocardium megaly is present. Cardiac conduction device with leads terminating in the right ve ntricle and right atrium. Atherosclerosis of the coronary arteries. MEDIASTINUM: No gross evidence of adenopathy. VASCULATURE: Atherosclerotic calcifications are present throughout the aorta and its branches. MUSCULOSKELETAL: Moderate multilevel disc degeneration changes osteophyte changes SOFT TISSUES/LYMPH NODES: Unremarkable. LOWER NECK: No significant findings. UPPER ABDOMEN: No significant findings. IMPRESSION: 1. Low lung volumes with mild cardiomegaly and mild pulmonary vascular congestion correlate serum BNP for congestive heart failure. No convincing evidence of consolidation to suggest pneumonia. 2. Coronary artery atherosclerosis.
[2021-11-13] MEDS: guaiFENesin-DM 100-10MG/5ML 10 ML CUP PO PRN (05:07)
[2021-11-13 06:16] LABS: Glucose,Whole Blood 130 mg/dL (75-99)
[2021-11-13] MEDS: INSULIN ASPART (NovoLOG) 100 UNIT/ML VIAL SQ SCH ×2 (06:22→12:19)
[2021-11-13] MEDS: LEVOTHYROXINE 50 MCG TAB PO SCH (06:34)
[2021-11-13] MEDS: carvediloL 6.25 MG TAB PO SCH (06:34)
[2021-11-13 07:13] LABS: Basophils % (A) 0 %; Eosinophils # (A) 0.4 k/uL (0-0.7); Eosinophils % (A) 5 %; HCT 31.7 % (39.0-53.0); HGB 10.4 gm/dL (13.0-17.5); Lymphocytes # (A) 1.6 k/uL (1.0-4.8); Lymphocytes % (A) 18 %; MCH 34.3 pg (25.0-35.0); MCV 104.1 fL (80.0-100.0); Macrocytosis Slight; Mean Platelet Volume 9.7; Monocytes # (A) 0.5 k/uL (0-1.0); Monocytes % (A) 5 %; Neutrophils # (A) 6.3 k/uL (1.3-7.7); Neutrophils % (A) 70 %; Platelet Count 171 k/uL (150-450); RBC 3.04 m/uL (4.30-5.90)
[2021-11-13] MEDS: INSULIN DETEMIR (LEVEMIR) 100 UNIT/ML SYR SQ SCH (07:14)
[2021-11-13 07:32] LABS: ALT <6 U/L (4-49); AST 18 U/L (17-59); African American GFR (CKD) 31 (>60 ml/min/1.73 sqM); Albumin 3.3 g/dL (3.5-5.0); Alkaline Phosphatase 144 U/L (38-126); Anion Gap 5 mmol/L; Blood Urea Nitrogen 26 mg/dL (9-20); Calcium 7.8 mg/dL (8.4-10.2); Carbon Dioxide 25 mmol/L (22-30); Chloride 106 mmol/L (98-107); Glucose 130 mg/dL (74-99); Non-African American GFR(CKD) 27 (>60 ml/min/1.73 sqM); Potassium 3.7 mmol/L (3.5-5.1); Sodium 136 mmol/L (137-145); Total Bilirubin 0.4 mg/dL (0.2-1.3)
[2021-11-13] MEDS: ALBUTEROL NEBULIZED 2.5 MG/3 ML INHALATION SCH ×2 (08:20→11:31)
[2021-11-13] MEDS: FUROSEMIDE 20 MG TAB PO SCH (08:41)
[2021-11-13] MEDS: TAMSULOSIN 0.4 MG CAP.ER.24H PO SCH (08:41)
[2021-11-13] MEDS: HEPARIN SODIUM,PORCINE/PF 5,000 UNIT/0.5 ML SYRINGE SQ SCH (08:41)
[2021-11-13] MEDS: amLODIPine 10 MG TAB PO SCH (08:41)
[2021-11-13] MEDS: SODIUM BICARBONATE TAB 650 MG TAB PO SCH (08:41)
[2021-11-13] MEDS: PANTOPRAZOLE 40 MG TABLET PO SCH (08:41)
[2021-11-13] MEDS: SERTRALINE 50 MG TAB PO SCH (08:42)
[2021-11-13] MEDS: GABAPENTIN 300 MG CAP PO SCH (08:42)
[2021-11-13] MEDS: LACTOBACILLUS ACIDOPH & BULGAR 1 EACH PACKET PO SCH (08:42)
[2021-11-13] MEDS: PRIMIDONE 50 MG TAB PO SCH (08:42)
[2021-11-13] MEDS: DOCUSATE 100 MG CAP PO SCH (08:42)
[2021-11-13] MEDS: ASPIRIN 81 MG PO SCH (08:42)
[2021-11-13] MEDS: MULTIVITAMINS, THERA 1 EACH TAB PO SCH (08:42)
[2021-11-13] MEDS: ATORVASTATIN 40 MG TAB PO SCH (08:42)
[2021-11-13] MEDS: oxyCODONE-APAP 7.5-325MG 1 EACH TAB PO SCH (08:42)
[2021-11-13 09:27] VITALS: BP 164/78; TEMP 98
--- NOTE | 2021-11-13 11:33 | P.DS ---
Providers Date of admission: 11/09/21 15:50 Expected date of discharge: 11/13/21 Attending physician: Reilly Higginbotham Consults: 11/09/21 15:50 Consult Physician Urgent Consulting Provider: Shravan Faust Consult Reason/Comments: chest pain, suspect heart block Do you want consulting provider notified?: Already Contacted 11/12/21 12:50 Consult Physician Routine Consulting Provider: Michael Garrison Consult Reason/Comments: cough, right chest pain with inspiration Do you want consulting provider notified?: Yes Primary care physician: Reilly Higginbotham Hospital Course: Patient is a pleasant 81-year-old male that presented to the emergency room with chest pain. Patient also reported diaphoresis and nausea. Patient has a pertinent medical history of hypertension, hyperlipidemia, coronary artery disease, chronic kidney disease stage IV, type 2 diabetes, anxiety, depression, hypothyroidism, BPH, restless leg syndrome, obstructive sleep apnea and osteoarthritis. Patient was found to be in a second-degree heart block. Troponins and chest x-ray were normal. Acute coronary syndrome was ruled out. Cardiology was consulted. Patient was admitted to hospitalists 11/09/21. 11/10/2021 Patient was seen and examined at bedside. Patient is resting comfortably in bed. Patient denies present chest pain. Denies shortness of breath, abdominal pain, dizziness, headache. He states he is waiting to go down for surgery for permanent pacemaker placement. We will await postoperative recommendations. 11/11/2021- hospitalist coverage 11/12/2021 Patient was seen and evaluated at bedside. Patient reports soreness at Pacemaker placement site, also reports ongoing cough, chills, right-sided lung pain and dyspnea. Denies chest pain, or fever. Chest x-ray was ordered, found questionable small left lung base infiltration. Discussed going home and treating possible pneumonia outpatient, patient is anxious about going home and having to return to the hospital. Pulmonary was consulted to help determine plan of care. White count today was 8.1. BUN 22, creatinine 2.1 slightly higher than baseline, we'll continue to monitor. Patient was cleared to go home by cardiology, will monitor patient one more day to rule out pneumonia. 11/13/2021 Patient was seen and evaluated. Patient was up walking in the room, denies shortness of breath, chest pain, dizziness, chills. Continues to have right pleuritic pain and soreness at incision site. Pulmonology saw patient and ordered chest CT which found low lung volumes with mild cardiomegaly and mild pulmonary vascular congestion with no evidence of pneumonia. BNP was 557, will continue daily Lasix 40 mg by mouth. Patient was cleared by cardiology. Computed tomography scan was negative for pneumonia, patient is stable for discharge pending pulmonary clearance. Assessment: Chest pain, acute coronary syndrome ruled out Second-degree AV block, status post pacemaker placement new right pleuritic pain, with persistent cough Acute on chronic kidney disease stage IV Type 2 diabetes Hypertension hyperlipidemia hypothyroidism Peripheral neuropathy Osteoarthritis History of A. fib Anxiety and depression BPH History of colon cancer with bowel resection Health Concerns: multiple comorbidities Pertinent Studies: chest xray found expiratory rotated exam on 11/09/21, exam from 11/12/21 found questionable small left lung base infiltration, and appropriate pacemaker placement EKG showed sinus bradycardia with 2nd degree AV block chest ct found low lung volumes with mild cardiomegaly and mild pulmonary vascular congestion with no evidence of pneumonia. Procedures: 11/10/2021- Pacemaker insertion dual chamber Patient Condition at Discharge: Stable Plan - Discharge Summary New Discharge Prescriptions: New carvediloL [Coreg] 6.25 mg PO BID-W/MEALS 30 Days #60 tab Continue Sertraline [Zoloft] 100 mg PO DAILY rOPINIRole HCL [Requip] 0.5 mg PO HS Levothyroxine Sodium [Synthroid] 50 mcg PO DAILY calcitrioL [Calcitriol] 0.25 mcg PO MOWETHSA Gabapentin 600 mg PO BID Tamsulosin [Flomax] 0.4 mg PO TID Nitroglycerin Sl Tabs [Nitrostat] 0.4 mg SUBLINGUAL Q5M PRN PRN Reason: Chest Pain Insulin Glargine,Hum.rec.anlog [Lantus Solostar Pen] 30 units SQ DAILY oxyCODONE-APAP 7.5-325MG [Percocet 7.5-325 mg] 1 tab PO BID Rosuvastatin [Crestor] 20 mg PO DAILY Aspirin EC [Ecotrin Low Dose] 81 mg PO DAILY Omeprazole 40 mg PO DAILY Ergocalciferol (Vitamin D2) [Drisdol (50,000 Iu)] 1,250 mcg PO QMONTHLY Melatonin 3 mg PO HS Sertraline [Zoloft] 50 mg PO DAILY Temazepam 30 mg PO HS Primidone [Mysoline] 150 mg PO BID Multivit-Min/FA/Lycopen/Lutein [Centrum Silver Men Tablet] 1 tab PO DAILY Furosemide [Lasix] 40 mg PO DAILY amLODIPine [Norvasc] 10 mg PO DAILY 30 Days #30 tablet [place]-3 Fatty Acids/Fish Oil [Fish Oil 1,000 mg Softgel] 1 cap PO DAILY L.acidoph,Paracasei, B.lactis [Probiotic] 1 cap PO DAILY Sodium Bicarbonate Tab 650 mg PO BID Discontinued hydrALAZINE HCL 50 mg PO TID Discharge Medication List Sertraline [Zoloft] 100 mg PO DAILY 02/18/16 [History] rOPINIRole HCL [Requip] 0.5 mg PO HS 08/20/16 [History] Levothyroxine Sodium [Synthroid] 50 mcg PO DAILY 12/11/18 [History] calcitrioL [Calcitriol] 0.25 mcg PO MOWETHSA 12/11/18 [History] Gabapentin 600 mg PO BID 12/15/18 [History] Nitroglycerin Sl Tabs [Nitrostat] 0.4 mg SUBLINGUAL Q5M PRN 07/11/20 [History] Tamsulosin [Flomax] 0.4 mg PO TID 07/11/20 [History] Primidone [Mysoline] 150 mg PO BID 01/26/21 [History] Insulin Glargine,Hum.rec.anlog [Lantus Solostar Pen] 30 units SQ DAILY 05/15/21 [History] Rosuvastatin [Crestor] 20 mg PO DAILY 05/15/21 [History] oxyCODONE-APAP 7.5-325MG [Percocet 7.5-325 mg] 1 tab PO BID 05/15/21 [History] Aspirin EC [Ecotrin Low Dose] 81 mg PO DAILY 06/17/21 [History] Omeprazole 40 mg PO DAILY 07/14/21 [History] Ergocalciferol (Vitamin D2) [Drisdol (50,000 Iu)] 1,250 mcg PO QMONTHLY 10/21/21 [History] Furosemide [Lasix] 40 mg PO DAILY 10/21/21 [History] Multivit-Min/FA/Lycopen/Lutein [Centrum Silver Men Tablet] 1 tab PO DAILY 10/21/21 [History] amLODIPine [Norvasc] 10 mg PO DAILY 30 Days #30 tablet 10/22/21 [Rx] L.acidoph,Paracasei, B.lactis [Probiotic] 1 cap PO DAILY 11/09/21 [History] Melatonin 3 mg PO HS 11/09/21 [History] [place]-3 Fatty Acids/Fish Oil [Fish Oil 1,000 mg Softgel] 1 cap PO DAILY 11/09/21 [History] Sertraline [Zoloft] 50 mg PO DAILY 11/09/21 [History] Sodium Bicarbonate Tab 650 mg PO BID 11/09/21 [History] Temazepam 30 mg PO HS 11/09/21 [History] carvediloL [Coreg] 6.25 mg PO BID-W/MEALS 30 Days #60 tab 11/13/21 [Rx] Follow up Appointment(s)/Referral(s): Reilly Higginbotham MD [Primary Care Provider] - 1-2 days Feliciano Green MD [STAFF PHYSICIAN] - 1 Week [facility], [NON-STAFF] - Patient Instructions/Handouts: Pacemaker (DC) Discharge Disposition: HOME WITH HOME HEALTH SERVICES
[2021-11-13 11:41] VITALS: PULSE 89
[2021-11-13 11:53] LABS: Glucose,Whole Blood 89 mg/dL (75-99)
--- NOTE | 2021-11-13 13:53 | P.PN ---
<Cara Amezquita M - Last Filed: 11/13/21 13:47> Subjective Progress Note Date: 11/13/21 Principal diagnosis: Pleuritic chest discomfort, cough 81-year-old white male patient who came into the emergency department on 11/09/2021 with complaints of substernal chest pain on the left side associated with diaphoresis and nausea and was diagnosed with second-degree AV block. His chest x-ray initially showed no focal airspace opacity, no pleural effusion or pneumothorax. His cardiac troponins were negative 3. Admission labs showed a white blood cell count 7.5, hemoglobin of 11.1, platelet count was 156, his electrolytes were unremarkable, his BUN is 32 and creatinine of 2.51. His past medical history is significant for coronary artery disease, hypertension, hyperlipidemia, diabetes mellitus. Patient is a former smoker, and he had 3 previous episodes of pneumonia, most recent one in August 2021. Not oxygen dependent at baseline. Does not follow with a career information specialist. Patient was evaluated by cardiology and he had a permanent pacemaker implantation by Dr. Faust, on 11/10/2021 with the dual chamber pacemaker. Patient tolerated procedure well, however he states following the procedure he started having cough, and pleuritic chest discomfort which is worsened with deep inspiration more on the right side, the side opposite of the pacemaker implantation. Patient did receive antibiotics prior and after the pacemaker implantation per cardiology protocol. His follow-up chest x-ray showing questionable small left lung base retrocardiac infiltration, but no definite acute pulmonary infiltration identified. He is afebrile, he is on room air, pulse ox is 97%, his lungs are clear to auscultation, however he feels that his breathing is different from his usual baseline. Chest discomfort he described is more pleuritic in nature. Today's labs have been reviewed showing white blood cell count of 8.1, hemoglobin of 12.0, electrolytes within normal limits BUN of 22 and creatinine of 2.013. Currently patient is on nebulized albuterol, he is on Robitussin-DM. He received several doses of Kefzol for his pacemaker implantation. On 11/13/2021 patient seen in follow-up on selective care unit, he is awake and alert, breathing quite quickly, he is ambulating in the hallway, denies any shortness of breath, he states he did cough through the night, and cough syrup was offered to him, which apparently helped with his cough, no chest discomfort on today's exam, he is on room air, vital signs have been stable. Room air pulse ox is 96%, hemodynamically has been stable. Lung sounds are clear to auscultation, CT chest was completed last night showing low lung volumes with mild cardiomegaly, pulmonary vessel congestion no convincing evidence of consolidation to suggest pneumonia. Objective - Vital Signs Vital signs: Vital Signs Temp 98.0 F 11/13/21 08:15 Pulse 89 11/13/21 11:41 Resp 18 11/13/21 08:15 BP 164/78 11/13/21 08:15 Pulse Ox 96 11/13/21 08:15 Intake & Output 11/12/21 11/13/21 11/13/21 18:59 06:59 18:59 Intake Total 1238 240 Balance 1238 240 Intake: Oral 1238 240 Other: Voiding Method Toilet Urinal # Voids 3 2 2 - Exam GENERAL EXAM: Alert, pleasant, 81-year-old male, on room air, with the pulse ox of 96%, doesn't appear to be in any acute distress comfortable in no apparent distress. HEAD: Normocephalic/atraumatic. EYES: Normal reaction of pupils, equal size. Conjunctiva pink, sclera white. NOSE: Clear with pink turbinates. THROAT: No erythema or exudates. NECK: No masses, no JVD, no thyroid enlargement, no adenopathy. CHEST: No chest wall deformity. Symmetrical expansion. Left upper chest permanent pacemaker implantation site covered with a postsurgical dressing, clean dry and intact, no hematoma LUNGS: Equal air entry with no crackles, wheeze, rhonchi or dullness. CVS: Regular rate and rhythm, normal S1 and S2, no gallops, no murmurs, no rubs ABDOMEN: Soft, nontender. No hepatosplenomegaly, normal bowel sounds, no guarding or rigidity. EXTREMITIES: No clubbing, no edema, no cyanosis, 2+ pulses and upper and lower extremities. MUSCULOSKELETAL: Muscle strength and tone normal. SPINE: No scoliosis or deformity SKIN: No rashes CENTRAL NERVOUS SYSTEM: Alert and oriented -3. No focal deficits, tone is normal in all 4 extremities. PSYCHIATRIC: Alert and oriented -3. Appropriate affect. Intact judgment and insight. - Labs CBC & Chem 7: 11/13/21 06:46 11/13/21 06:46 Labs: Abnormal Lab Results - Last 24 Hours (Table) 11/12/21 11/12/21 11/13/21 Range/Units 16:15 20:02 06:14 RBC (4.30-5.90) m/uL Hgb (13.0-17.5) gm/dL Hct (39.0-53.0) % MCV (80.0-100.0) fL Sodium (137-145) mmol/L BUN (9-20) mg/dL Creatinine (0.66-1.25) mg/dL Glucose (74-99) mg/dL POC Glucose (mg/dL) 133 H 113 H 130 H (75-99) mg/dL Calcium (8.4-10.2) mg/dL Alkaline Phosphatase (38-126) U/L Total Protein (6.3-8.2) g/dL Albumin (3.5-5.0) g/dL 11/13/21 11/13/21 Range/Units 06:46 06:46 RBC 3.04 L (4.30-5.90) m/uL Hgb 10.4 L (13.0-17.5) gm/dL Hct 31.7 L (39.0-53.0) % MCV 104.1 H (80.0-100.0) fL Sodium 136 L (137-145) mmol/L BUN 26 H (9-20) mg/dL Creatinine 2.18 H (0.66-1.25) mg/dL Glucose 130 H (74-99) mg/dL POC Glucose (mg/dL) (75-99) mg/dL Calcium 7.8 L (8.4-10.2) mg/dL Alkaline Phosphatase 144 H (38-126) U/L Total Protein 6.0 L (6.3-8.2) g/dL Albumin 3.3 L (3.5-5.0) g/dL Assessment and Plan Plan: Assessment: #1. Second-degree, type II Mobitz, status post permanent pacemaker implantation on 11/10/2021 #2. Pleuritic chest discomfort on the right side, and cough, rule out infectious possibility, chest x-ray showing questionable small left lung retroc ardiac infiltrate. CT of the chest without contrast showed no clear evidence of consolidation to suggest pneumonia, he did not low lung volumes with mild cardiomegaly and mild pulmonary vessel congestion #3. Chronic kidney disease stage IIIB #4. Hypertension #5. Diabetes mellitus type 2 #6. Hyperlipidemia #7. Hypothyroidism #8. Obstructive sleep apnea not on CPAP therapy #9. BPH status post TURP #10. Osteoarthritis with history of arthroplasty on the right knee, back surgery #11. Diverticular disease, with previous history of I&D for abdominal abscess #12. Former smoker Plan: Gen. chest has been reviewed with the patient No clear evidence of pneumonia radiologically or on physical exam His pleuritic right-sided chest discomfort has resolved Patient has remained afebrile, hemodynamically stable, he is breathing quite comfortably From pulmonary perspective he can be discharged home today Follow up with Dr. Hinkle in one week to follow-up on his symptoms I have personally seen and examined the patient, performed the documentation and the assessment and plan as written. Number of minutes spent on the visit: [10] Time with Patient: Less than 30 <Griffin Hinkle - Last Filed: 11/13/21 15:30> Objective - Vital Signs Vital signs: Vital Signs Temp 98.0 F 11/13/21 08:15 Pulse 89 11/13/21 11:41 Resp 18 11/13/21 08:15 BP 164/78 11/13/21 08:15 Pulse Ox 96 11/13/21 08:15 Intake & Output 11/12/21 11/13/21 11/13/21 18:59 06:59 18:59 Intake Total 1238 500 Balance 1238 500 Intake: Oral 1238 500 Other: Voiding Method Toilet Urinal # Voids 3 2 2 - Labs CBC & Chem 7: 11/13/21 06:46 11/13/21 06:46 Labs: Abnormal Lab Results - Last 24 Hours (Table) 11/12/21 11/12/21 11/13/21 Range/Units 16:15 20:02 06:14 RBC (4.30-5.90) m/uL Hgb (13.0-17.5) gm/dL Hct (39.0-53.0) % MCV (80.0-100.0) fL Sodium (137-145) mmol/L BUN (9-20) mg/dL Creatinine (0.66-1.25) mg/dL Glucose (74-99) mg/dL POC Glucose (mg/dL) 133 H 113 H 130 H (75-99) mg/dL Calcium (8.4-10.2) mg/dL Alkaline Phosphatase (38-126) U/L Total Protein (6.3-8.2) g/dL Albumin (3.5-5.0) g/dL 11/13/21 11/13/21 Range/Units 06:46 06:46 RBC 3.04 L (4.30-5.90) m/uL Hgb 10.4 L (13.0-17.5) gm/dL Hct 31.7 L (39.0-53.0) % MCV 104.1 H (80.0-100.0) fL Sodium 136 L (137-145) mmol/L BUN 26 H (9-20) mg/dL Creatinine 2.18 H (0.66-1.25) mg/dL Glucose 130 H (74-99) mg/dL POC Glucose (mg/dL) (75-99) mg/dL Calcium 7.8 L (8.4-10.2) mg/dL Alkaline Phosphatase 144 H (38-126) U/L Total Protein 6.0 L (6.3-8.2) g/dL Albumin 3.3 L (3.5-5.0) g/dL Assessment and Plan Plan: I have personally seen and examined the patient and reviewed the documentation. I performed a joint evaluation with the nurse practitioner in this evaluation was done more than 15 minutes. I fully agree with the documentation above and the plan of CARE.
== END 2021-11-13 15:57 | disposition home health service (06) | DRG 243 ==
LOC: EC 13:17 → 3SCARD 15:50
PROVIDERS: ADMIT Family Medicine; ATTEND Family Medicine
DX: I44.1 Atrioventricular block, second degree (principal); N18.4 Chronic kidney disease, stage 4 (severe); N17.9 Acute kidney failure, unspecified; E11.42 Type 2 diabetes mellitus with diabetic polyneuropathy; E11.22 Type 2 diabetes mellitus with diabetic chronic kidney disease; E11.51 Type 2 diabetes mellitus with diabetic peripheral angiopathy without gangrene; I12.9 Hypertensive chronic kidney disease with stage 1 through stage 4 chronic kidney disease, or unspecified chronic kidney disease; E03.9 Hypothyroidism, unspecified; G20 Parkinson's disease; Z79.4 Long term (current) use of insulin; I44.7 Left bundle-branch block, unspecified; E78.5 Hyperlipidemia, unspecified; G25.81 Restless legs syndrome; G47.33 Obstructive sleep apnea (adult) (pediatric); I25.10 Atherosclerotic heart disease of native coronary artery without angina pectoris; K21.9 Gastro-esophageal reflux disease without esophagitis; K44.9 Diaphragmatic hernia without obstruction or gangrene; F32.A Depression, unspecified; F41.9 Anxiety disorder, unspecified; M54.9 Dorsalgia, unspecified; N40.0 Benign prostatic hyperplasia without lower urinary tract symptoms; G89.29 Other chronic pain; K57.90 Diverticulosis of intestine, part unspecified, without perforation or abscess without bleeding; M19.90 Unspecified osteoarthritis, unspecified site; R07.81 Pleurodynia; Z79.82 Long term (current) use of aspirin; Z79.890 Hormone replacement therapy; Z79.891 Long term (current) use of opiate analgesic; Z79.899 Other long term (current) drug therapy; Z86.79 Personal history of other diseases of the circulatory system; Z85.038 Personal history of other malignant neoplasm of large intestine; Z90.49 Acquired absence of other specified parts of digestive tract; Z97.0 Presence of artificial eye; Z96.651 Presence of right artificial knee joint; Z98.41 Cataract extraction status, right eye; Z96.1 Presence of intraocular lens; Z87.891 Personal history of nicotine dependence; Z87.438 Personal history of other diseases of male genital organs; Z90.79 Acquired absence of other genital organ(s); Z87.19 Personal history of other diseases of the digestive system; Z87.39 Personal history of other diseases of the musculoskeletal system and connective tissue; Z86.69 Personal history of other diseases of the nervous system and sense organs; Z95.5 Presence of coronary angioplasty implant and graft; Z87.01 Personal history of pneumonia (recurrent); Z98.890 Other specified postprocedural states; Z82.49 Family history of ischemic heart disease and other diseases of the circulatory system; Z80.8 Family history of malignant neoplasm of other organs or systems; Z83.49 Family history of other endocrine, nutritional and metabolic diseases
CPT/HCPCS: 33208; 36415; 71045; 71046; 71250; 80048; 80053; 80061; 82607; 83690; 83735; 83880; 84484; 85025; 85610; 85730; 93005; 94640; 99285

== ENCOUNTER 2021-11-16 | Inpatient (IN) | payer MEDICARE ==
[2021-11-16] MEDS ORDERED: SODIUM CHLORIDE 0.9% 1,000 ML IV STA (00:06)
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
[2021-11-16] MEDS ORDERED: ACETAMINOPHEN TAB 500 MG TAB PO STA (00:14)
[2021-11-16] MEDS ORDERED: IBUPROFEN 600 MG TAB PO STA (00:14)
--- NOTE | 2021-11-16 01:04 | XR ---
EXAMINATION TYPE: XR chest 2V DATE OF EXAM: 11/16/2021 COMPARISON: 11/12/2021 HISTORY: Weakness TECHNIQUE: FINDINGS: There is some patchy infiltrate in the periphery of the right upper lobe. There is coarse i nterstitial density throughout the lungs. There is left axillary pacemaker. Heart size is normal. No pleural effusion seen. IMPRESSION: Bilateral interstitial pneumonia which is more in the right upper lobe. This appears new compared to old exam. No heart failure seen.
[2021-11-16 01:43] LABS: Basophils % (A) 0 %; Eosinophils # (A) 0.3 k/uL (0-0.7); Eosinophils % (A) 2 %; HCT 31.8 % (39.0-53.0); HGB 10.7 gm/dL (13.0-17.5); Lymphocytes % (A) 8 %; MCH 34.7 pg (25.0-35.0); MCHC 33.6 g/dL (31.0-37.0); MCV 103.2 fL (80.0-100.0); Macrocytosis Slight; Mean Platelet Volume 10.6; Monocytes # (A) 0.3 k/uL (0-1.0); Monocytes % (A) 2 %; Neutrophils # (A) 11.5 k/uL (1.3-7.7); Neutrophils % (A) 87 %; Platelet Count 176 k/uL (150-450); RBC 3.09 m/uL (4.30-5.90); RDW 14.5 % (11.5-15.5); WBC 13.2 k/uL (3.8-10.6)
[2021-11-16 01:52] LABS: Partial Thromboplastin Time 37.3 sec (22.0-30.0); Prothrombin Time 11.1 sec (9.0-12.0)
[2021-11-16 01:59] LABS: Appearance,Urine Clear (Clear); Bilirubin,Urine Negative (Negative); Blood,Urine Small (Negative); Color,Urine Yellow; Glucose,Urine (UA) Trace (Negative); Ketones,Urine Negative (Negative); Leukocyte Esterase,Urine Negative (Negative); Mucus,Urine Rare /hpf; Nitrite,Urine Negative (Negative); Protein,Urine 2+ (Negative); RBC,Urine 1 /hpf (0-5); Specific Gravity,Urine 1.015 (1.001-1.035); WBC,Urine 1 /hpf (0-5)
[2021-11-16 02:22] LABS: Albumin 3.9 g/dL (3.5-5.0); Calcium 7.8 mg/dL (8.4-10.2); Total Bilirubin 1.1 mg/dL (0.2-1.3); Total Protein 6.8 g/dL (6.3-8.2)
[2021-11-16 02:58] LABS: Phosphorus 3.1 mg/dL (2.5-4.5); Potassium 4.3 mmol/L (3.5-5.1)
[2021-11-16 02:59] LABS: Magnesium 2.1 mg/dL (1.6-2.3)
[2021-11-16] MEDS ORDERED: ALBUTEROL HFA INHALER INHALATION STA (03:28)
[2021-11-16] MEDS ORDERED: NALOXONE 0.4 MG/ML 1 ML VIAL IV PRN (03:28)
[2021-11-16] MEDS ORDERED: ONDANSETRON 4 MG/2 ML VIAL IVP PRN (03:28)
[2021-11-16 03:50] LABS: C Reactive Protein 39.3 mg/dL (<1.0)
[2021-11-16] MEDS: SODIUM CHLORIDE 0.9% 1,000 ML IV SCH ×2 (04:14→12:18)
[2021-11-16 06:03] LABS: Glucose,Whole Blood 180 mg/dL (75-99)
[2021-11-16] MEDS: INSULIN ASPART (NovoLOG) 100 UNIT/ML VIAL SQ SCH ×4 (06:17→19:41)
[2021-11-16] MEDS ORDERED: oxyCODONE-APAP 7.5-325MG 1 EACH TAB PO PRN (08:24)
[2021-11-16] MEDS ORDERED: NITROGLYCERIN SL TABS 0.4 MG TAB SUBLINGUAL PRN (08:24)
[2021-11-16] MEDS ORDERED: MELATONIN 3 MG TABLET PO PRN (08:24)
[2021-11-16] MEDS: ALBUTEROL HFA INHALER INHALATION SCH ×3 (08:29→19:16)
[2021-11-16] MEDS ORDERED: ENOXAPARIN 30 MG/0.3 ML SYRINGE SQ SCH (09:00)
[2021-11-16] MEDS: FUROSEMIDE 40 MG TAB PO SCH (09:20)
[2021-11-16] MEDS: PRIMIDONE 50 MG TAB PO SCH ×2 (09:20→19:40)
[2021-11-16] MEDS: FAMOTIDINE 20 MG/2 ML VIAL IV SCH ×2 (09:20→19:40)
[2021-11-16] MEDS: ASPIRIN 81 MG PO SCH (09:20)
[2021-11-16] MEDS: GABAPENTIN 300 MG CAP PO SCH ×2 (09:21→19:40)
[2021-11-16] MEDS: TAMSULOSIN 0.4 MG CAP.ER.24H PO SCH ×3 (09:21→19:40)
[2021-11-16] MEDS: SERTRALINE 50 MG TAB PO SCH (09:21)
[2021-11-16] MEDS: amLODIPine 10 MG TAB PO SCH (09:21)
[2021-11-16] MEDS: ZINC SULFATE 220 MG CAP PO SCH (09:21)
[2021-11-16] MEDS: SODIUM BICARBONATE TAB 650 MG TAB PO SCH ×2 (09:21→19:40)
[2021-11-16] MEDS: LEVOTHYROXINE 50 MCG TAB PO SCH (09:26)
[2021-11-16] MEDS: ASCORBIC ACID 500 MG TAB PO SCH (09:26)
[2021-11-16] MEDS: INSULIN DETEMIR (LEVEMIR) 100 UNIT/ML SYR SQ SCH (10:16)
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
[2021-11-16 11:44] LABS: Glucose,Whole Blood 165 mg/dL (75-99)
[2021-11-16 16:30] LABS: Glucose,Whole Blood 145 mg/dL (75-99)
[2021-11-16] MEDS ORDERED: ALPRAZolam 0.25 MG TAB PO STA (17:08)
[2021-11-16] MEDS: DEXAMETHASONE SOD PHOSPHATE 10 MG/ML 1 ML VIAL IV SCH (17:10)
[2021-11-16] MEDS: carvediloL 6.25 MG TAB PO SCH (17:10)
[2021-11-16] MEDS: guaiFENesin SYRUP 100MG/5ML 200 MG/10 ML CUP PO PRN (17:23)
[2021-11-16] MEDS: hydrALAZINE HCL 20 MG/ML 1 ML VIAL IVP PRN (17:24)
[2021-11-16] MEDS ORDERED: FUROSEMIDE 10 MG/ML 4 ML VIAL IV STA (17:43)
--- NOTE | 2021-11-16 18:34 | XR ---
EXAMINATION TYPE: XR chest 1V portable DATE OF EXAM: 11/16/2021 6:07 PM COMPARISON:Chest radiographs from 11/16/2021 TECHNIQUE: XR chest 1V portable Frontal view of the chest. CLINICAL INDICATION:Male, 81 years old with history of short of breath; FINDINGS: Lungs/Pleura: Similar multifocal airspace opacities. No evidence of pneumothorax or pleural effusion. Pulmonary vascularity: Unremarkable. Heart/mediastinum: Cardiomediastinal silhouette is unremarkable. Atherosclerotic calcifications are seen in the aorta. Two lead cardiac conduction device overlying the left hemithorax with lead tips pr ojecting over the right ventricle and right atrium. Musculoskeletal: No acute osseous pathology. IMPRESSION: Similar multifocal airspace opacities.
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
[2021-11-16] MEDS ORDERED: AMOXIC-POT CLAV 875-125MG 1 EACH TAB PO SCH (18:45)
[2021-11-16] MEDS: ACETAMINOPHEN TAB 325 MG TAB PO PRN ×2 (18:58→22:58)
[2021-11-16 19:29] LABS: Glucose,Whole Blood 135 mg/dL (75-99)
[2021-11-16] MEDS: ATORVASTATIN 20 MG TAB PO SCH (19:40)
[2021-11-16] MEDS: LORazepam 2 MG/ML INJ IV PRN (20:05)
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
[2021-11-16] MEDS: PIPERACILLIN-TAZOBACTAM 3.375 GM in SODIUM CHLORIDE 0.9% 100 ML IVPB SCH (23:45)
[2021-11-17] MEDS: guaiFENesin SYRUP 100MG/5ML 200 MG/10 ML CUP PO PRN ×3 (03:37→18:17)
[2021-11-17 05:46] LABS: Glucose,Whole Blood 113 mg/dL (75-99)
[2021-11-17] MEDS: INSULIN ASPART (NovoLOG) 100 UNIT/ML VIAL SQ SCH ×4 (06:11→20:29)
[2021-11-17] MEDS: INSULIN DETEMIR (LEVEMIR) 100 UNIT/ML SYR SQ SCH (06:21)
[2021-11-17] MEDS: LEVOTHYROXINE 50 MCG TAB PO SCH (06:21)
[2021-11-17] MEDS: carvediloL 6.25 MG TAB PO SCH ×2 (06:21→16:43)
--- NOTE | 2021-11-17 07:46 | ECHOF ---
Referral Reason:full echo due to elevated troponin and recent PM MEASUREMENTS -------- HEIGHT: 170.2 cm WEIGHT: 75.3 kg BP: 98/52 IVSd: 1.7 cm (0.6 - 1.1) LVIDd: 4.6 cm (3.9 - 5.3) LVPWd: 1.7 cm (0.6 - 1.1) IVSs: 2.0 cm LVIDs: 3.4 cm LVPWs: 2.1 cm LAESV Index (A-L): 38.28 ml/m Ao Diam: 3.8 cm (2.0 - 3.7) AV Cusp: 2.0 cm (1.5 - 2.6) MV EXCURSION: 12.000 mm (> 18.000) MV EF SLOPE: 66 mm/s (70 - 150) EPSS: 0.4 cm MV E Burton: 1.24 m/s MV DecT: 195 ms MV A Burton: 1.04 m/s MV E/A Ratio: 1.20 FINDINGS -------- Paced rhythm. This was a technically difficult study with suboptimal apical views. The left ventricular size is normal. There is severe concentric left ventricular hypertrophy. Ove rall left ventricular systolic function is normal with, an EF between 55 - 60 %. Septal wall motion is delayed, and consistent with ventricular pacing. The RV was not well visualized. LA is moderately dilated 34-39 ml/m2 The right atrial size is normal. Electronic pacemaker lead seen in the right atrial cavity. 5.0mg of Lumason was utilized for enhancement of images Interatrial and interventricular septum intact. There is no evidence of aortic regurgitation. There is no evidence of aortic stenosis. Mild mitral regurgitation is present. Mild tricuspid regurgitation present. Unable to estimate RVSP due to inadequate TR jet spectral dop pler profile. There is no pulmonic regurgitation present. The aortic root size is normal. IVC Not well visulized. Echo free space represents a pericardial fat pad. There is no pericardial effusion. CONCLUSIONS -------- 1. The left ventricular size is normal. 2. There is severe concentric left ventricular hypertrophy. 3. Overall left ventricular systolic function is normal with, an EF between 55 - 60 %. 4. LA is moderately dilated 34-39 ml/m2 5. Mild mitral regurgitation is present. 6. Mild tricuspid regurgitation present. [employer] OPERATOR: Alexandra Sherman RDCS
--- NOTE | 2021-11-17 08:01 | XR ---
EXAMINATION TYPE: XR chest 1V DATE OF EXAM: 11/17/2021 COMPARISON: X-ray dated 11/16/2021 HISTORY: Cough TECHNIQUE: Single frontal view of the chest is obtained. FINDINGS: Persistent heterogeneous patchy opacity in the right upper to midlung zone with smaller opacities in the left mid to lower lung zones, apparently slightly improved in the left lower lobe compared to the previous x-ray. This could be due to technical factors. No sizable pleural effusion or definite pneumothorax. Unchanged cardiomediastinal silhouette, aortic atherosclerotic calcification and the left upper chest wall dual-lead pacemaker. IMPRESSION: Minimal interval changes as described above.
[2021-11-17] MEDS: SODIUM BICARBONATE TAB 650 MG TAB PO SCH ×2 (08:08→20:29)
[2021-11-17] MEDS: PRIMIDONE 50 MG TAB PO SCH ×2 (08:08→20:29)
[2021-11-17] MEDS: ASPIRIN 81 MG PO SCH (08:08)
[2021-11-17] MEDS: ZINC SULFATE 220 MG CAP PO SCH (08:08)
[2021-11-17] MEDS: TAMSULOSIN 0.4 MG CAP.ER.24H PO SCH ×3 (08:08→20:29)
[2021-11-17] MEDS: FUROSEMIDE 40 MG TAB PO SCH (08:08)
[2021-11-17] MEDS: GABAPENTIN 300 MG CAP PO SCH ×2 (08:09→20:29)
[2021-11-17] MEDS: FAMOTIDINE 20 MG/2 ML VIAL IV SCH ×2 (08:09→20:29)
[2021-11-17] MEDS: SERTRALINE 50 MG TAB PO SCH (08:09)
[2021-11-17] MEDS: ASCORBIC ACID 500 MG TAB PO SCH (08:09)
[2021-11-17] MEDS: amLODIPine 10 MG TAB PO SCH (08:09)
[2021-11-17] MEDS: DEXAMETHASONE SOD PHOSPHATE 10 MG/ML 1 ML VIAL IV SCH (08:10)
[2021-11-17] MEDS: PIPERACILLIN-TAZOBACTAM 3.375 GM in SODIUM CHLORIDE 0.9% 100 ML IVPB SCH ×3 (08:11→23:22)
[2021-11-17] MEDS: ALBUTEROL HFA INHALER INHALATION SCH ×4 (08:35→20:01)
[2021-11-17] MEDS ORDERED: ENOXAPARIN 60 MG/0.6 ML SYRINGE SQ SCH (09:00)
--- NOTE | 2021-11-17 09:39 | US ---
EXAMINATION TYPE: US venous doppler duplex LE DATE OF EXAM: 11/17/2021 9:30 AM COMPARISON: US 2017 CLINICAL HISTORY: leg swelling. Exam done portable on covid patient SIDE PERFORMED: Bilateral TECHNIQUE: The lower extremity deep venous system is examined utilizing real time linear array sonog johnathan with graded compression, doppler sonography and color-flow sonography. VESSELS IMAGED: Common Femoral Vein Deep Femoral Vein Greater Saphenous Vein * Femoral Vein Popliteal Vein Proximal Calf Veins (* superficial vessels) Right Leg: Appears negative for DVT Left Leg: Appears negative for DVT IMPRESSION: Grayscale, color doppler, spectral doppler imaging performed of the deep veins of the lo wer extremities. There is normal flow, compressibility, vascular waveforms. No evidence of DVT of t he lower extremities.
[2021-11-17] MEDS: ACETAMINOPHEN TAB 325 MG TAB PO PRN ×2 (09:47→23:27)
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
[2021-11-17 11:28] LABS: Glucose,Whole Blood 128 mg/dL (75-99)
[2021-11-17] MEDS ORDERED: LOPERAMIDE 2 MG CAP PO PRN (12:51)
--- NOTE | 2021-11-17 13:04 | P.PN ---
Subjective This is a 81 year old male with a past medical history significant for second degree heart block s/p dual chamber pacemaker implantation on 11/10/2021, coronary artery disease with 50% LAD lesion, hypertension, hyperlipidemia, and type 2 diabetes. Patient follows in the office with Dr. Green. We have been asked to see the patient in consultation for elevated troponin. Patient presented to the ER with a chief complaint of generalized aches, fever 101 at home, cough, and some mild shortness of breath for 1 day. Patient found to be Covid-19 positive. DIAGNOSTICS -EKG reveals V paced HR 110, repeat V-paced HR 81 -Chest xray Bilateral interstital pneumonia, which is more in the right upper lobe, new compared to old exam. No heart failure seen -Cardiac catheterization history: February 2010 revealing normal ejection fraction 50% mid LAD lesion -Patient underwent Lexiscan stress test in June 2021 which was negative for ischemia 11/17/2021 Patient seen and examined at bedside, patient requiring increased oxygenation this morning and overnight. Currently on non-rebreather. Continues to be febrile Temp 101.5. BP 135/62. HR 70s-80s V paced. Echo revealed EF 55-60%, LVH, mild MR, mild TR Blood cultures have been negative growth to date. US dopplers no DVT bilaterally Patient is currently maintained on amlodipine 10 mg daily, aspirin 81 mg daily, atorvastatin 20 mg daily, carvedilol 6.25 mg twice a day, Lasix 40 mg daily, IV Zosyn, and Decadron PHYSICAL EXAM: VITAL SIGNS: Reviewed. GENERAL: Short of breath HEENT: Neck supple. No JVD LUNGS: Respirations even and unlabored. Lungs diminished in the bases. HEART: Bradycardic. Regular rate and rhythm. S1 and S2 heard. ABDOMEN: Soft. Nondistended. Nontender. EXTREMITIES: Normal range of motion. Peripheral pulses intact. No lower extremity edema NEUROLOGIC: Awake and alert. Oriented x 3. ASSESSMENT: Elevated troponin, likely related to febrile illness, Covid-19 pneumonia Covid-19 Pneumonia Acute hypoxic respiratory failure, secondary to Covid-19 Cough, Fever Generalized body aches Second degree heart block s/p dual chamber PPM on 11/10/2021 Coronary artery disease with 50% LAD lesion Hypertension Hyperlipidemia Diabetes, type 2 PLAN: Continue home cardiac medications No further changes from a cardiology perspective at this time. Pulmonary following Further recommendations based on clinical course Nurse practitioner note has been reviewed by physician. Signing provider agrees with the documented findings, assessment, and plan of care. Objective - Vital Signs Vital signs: Vital Signs Temp 99.1 F 11/17/21 12:00 Pulse 84 11/17/21 12:00 Resp 22 11/17/21 12:00 BP 135/62 11/17/21 12:00 Pulse Ox 90 L 11/17/21 12:00 Intake & Output 11/16/21 11/17/21 11/17/21 18:59 06:59 18:59 Intake Total 240 Output Total 700 1350 100 Balance -700 -1110 -100 Intake: Oral 240 Output: Urine 700 1350 100 Other: Voiding Method Toilet Urinal Urinal # Voids 1 1 # Bowel Movements 1 - Labs CBC & Chem 7: 11/16/21 00:20 11/16/21 00:20 Labs: Abnormal Lab Results - Last 24 Hours (Table) 11/16/21 11/16/21 11/16/21 Range/Units 00:20 16:27 19:27 D-Dimer (<0.60) mg/L FEU POC Glucose (mg/dL) 145 H 135 H (75-99) mg/dL Procalcitonin 0.29 H (0.02-0.09) ng/mL 11/16/21 11/16/21 11/17/21 Range/Units 19:38 19:38 05:44 D-Dimer 2.18 H (<0.60) mg/L FEU POC Glucose (mg/dL) 113 H (75-99) mg/dL Procalcitonin 1.47 H (0.02-0.09) ng/mL 11/17/21 Range/Units 11:22 D-Dimer (<0.60) mg/L FEU POC Glucose (mg/dL) 128 H (75-99) mg/dL Procalcitonin (0.02-0.09) ng/mL Microbiology - Last 24 Hours (Table) 11/16/21 00:20 Blood Culture - Preliminary Blood No Growth after 24 hours
--- NOTE | 2021-11-17 14:29 | P.PN ---
Subjective Progress Note Date: 11/17/21 Principal diagnosis: fever Patient is a pleasant 81-year-old male that presented to the emergency room with fever, shortness of breath and tachycardia. Patient was hypoxic and tested positive for covid 19. White blood cell count was 13.2, troponin was elevated at 0.0569 and 0.078 Chest x-ray showed bilateral interstitial pneumonia which is more in the upper right lobe. Patient was recently discharged after pacemaker insertion. Pacemaker site is clean dry and intact, without symptoms of infection. Patient was admitted for hypoxia, infectious disease, pulmonary, and cardiology were consulted. Patient has an extensive medical history including hypertension, hyperlipidemia, coronary artery disease, chronic kidney disease, type 2 diabetes, anxiety, depression, hypothyroidism, BPH, restless leg syndrome, obstructive sleep apnea, osteoarthritis. Patient has history of heart catheterizations and pacemaker placement in October 2021. hospitalist coverage 11/16/21 11/17/2021 Patient seen and evaluated at bedside, patient in mild distress with shortness of breath at rest. Patient reports nausea, diarrhea, chills, weakness, body aches, productive cough and severe shortness of breath. Patient is currently requiring 15 L on nonrebreather and 15 L nasal cannula. Patient was not a candidate for rem treatment due to kidney function. Chest x-ray from today shows persistent heterogenous patchy opacity in the right upper to midlung zone with smaller obesities in the left mid to lower lungs. Echocardiogram showed severe concentric left ventricular hypertrophy with the EF of between 5560%. Infectious disease started IV Zosyn for pneumonia, IV Decadron. Kidney function labs from yesterday was slightly worse than normal, BUN 36, creatinine 2.5, GFR 23. Nephrology consulted. Objective - Vital Signs Vital signs: Vital Signs Temp 99.1 F 11/17/21 12:00 Pulse 84 11/17/21 12:00 Resp 22 11/17/21 12:00 BP 135/62 11/17/21 12:00 Pulse Ox 90 L 11/17/21 12:00 Intake & Output 11/16/21 11/17/21 11/17/21 18:59 06:59 18:59 Intake Total 240 Output Total 700 1350 100 Balance -700 -1110 -100 Intake: Oral 240 Output: Urine 700 1350 100 Other: Voiding Method Toilet Urinal Urinal # Voids 1 1 # Bowel Movements 1 - Constitutional General appearance: Present: average body habitus, cooperative, mild distress - EENT Eyes: Present: EOMI (right eye), PERRLA (right eye) ENT: Present: normal oropharynx Ears: bilateral: normal - Neck Neck: Present: normal ROM - Respiratory Respiratory: bilateral: diminished, rhonchi, wheezing - Cardiovascular Heart rate: 80 Rhythm: regular Heart sounds: normal: S1, S2 - Peripheral pulses radial pulse Peripheral Pulses: bilateral: Normal - Gastrointestinal General gastrointestinal: Present: normal bowel sounds, soft - Integumentary Integumentary: Present: pale - Neurologic Neurologic: Present: CNII-XII intact - Musculoskeletal Musculoskeletal: Present: generalized weakness - Psychiatric Psychiatric: Present: A&O x's 3 - Allied health notes Allied health notes reviewed: nursing - Labs CBC & Chem 7: 11/16/21 00:20 11/16/21 00:20 Labs: Abnormal Lab Results - Last 24 Hours (Table) 11/16/21 11/16/21 11/16/21 Range/Units 00:20 16:27 19:27 D-Dimer (<0.60) mg/L FEU POC Glucose (mg/dL) 145 H 135 H (75-99) mg/dL Procalcitonin 0.29 H (0.02-0.09) ng/mL 11/16/21 11/16/21 11/17/21 Range/Units 19:38 19:38 05:44 D-Dimer 2.18 H (<0.60) mg/L FEU POC Glucose (mg/dL) 113 H (75-99) mg/dL Procalcitonin 1.47 H (0.02-0.09) ng/mL 11/17/21 Range/Units 11:22 D-Dimer (<0.60) mg/L FEU POC Glucose (mg/dL) 128 H (75-99) mg/dL Procalcitonin (0.02-0.09) ng/mL Microbiology - Last 24 Hours (Table) 11/16/21 00:20 Blood Culture - Preliminary Blood No Growth after 24 hours - Imaging and Cardiology Chest x-ray: report reviewed Assessment and Plan Assessment: Covid 19 pneumonia Acute hypoxic respiratory failure Elevated troponin, ruled out cardiac cause Leukocytosis and fever Status post pacemaker placement for sinus bradycardia Chronic kidney disease, stage IV Type 2 diabetes Hypertension hyperlipidemia hypothyroidism History of colon cancer status post resection Plan: Continue IV antibiotics and steroids per infectious disease Continue supplemental oxygen to keep satO2 greater than 90% Continue vitamin C, vitamin D, and zinc Continue to monitor kidney function labs, nephrology consult Monitor Pacemaker incision site for infection Sliding-scale insulin and Levemir ordered, assess blood glucose before meals at bedtime Subcu Lovenox for DVT prophylaxis Further recommendations to come based on patient's clinical course Time with Patient: Greater than 30
[2021-11-17 16:37] LABS: Glucose,Whole Blood 239 mg/dL (75-99)
[2021-11-17 17:30] LABS: Albumin 3.4 g/dL (3.5-5.0); Calcium 7.4 mg/dL (8.4-10.2); Magnesium 2.1 mg/dL (1.6-2.3); Phosphorus 5.5 mg/dL (2.5-4.5); Potassium 4.1 mmol/L (3.5-5.1); Total Bilirubin 0.9 mg/dL (0.2-1.3); Total Protein 6.3 g/dL (6.3-8.2)
[2021-11-17 17:59] LABS: Basophils % (A) 0 %; Eosinophils # (A) 0.1 k/uL (0-0.7); Eosinophils % (A) 0 %; HCT 35.5 % (39.0-53.0); Hypochromasia Marked; Lymphocytes # (A) 0.8 k/uL (1.0-4.8); Lymphocytes % (A) 7 %; MCH 34.5 pg (25.0-35.0); MCHC 30.9 g/dL (31.0-37.0); Mean Platelet Volume 10.4; Monocytes # (A) 0.6 k/uL (0-1.0); Monocytes % (A) 5 %; Neutrophils % (A) 88 %; Platelet Count 199 k/uL (150-450); RBC 3.18 m/uL (4.30-5.90); RDW 14.1 % (11.5-15.5); WBC 12.6 k/uL (3.8-10.6)
[2021-11-17 18:18] LABS: MCV 111.7 fL (80.0-100.0)
[2021-11-17 19:10] LABS: Macrocytosis Slight
[2021-11-17] MEDS: LORazepam 2 MG/ML INJ IV PRN (19:37)
[2021-11-17] MEDS: hydrALAZINE HCL 20 MG/ML 1 ML VIAL IVP PRN (19:46)
[2021-11-17] MEDS: MORPHINE SULFATE 4 MG/ML SYRINGE IV PRN (20:04)
[2021-11-17 20:14] LABS: Glucose,Whole Blood 149 mg/dL (75-99)
[2021-11-17] MEDS: ATORVASTATIN 20 MG TAB PO SCH (20:29)
--- NOTE | 2021-11-17 21:23 | P.PN ---
Subjective Progress Note Date: 11/17/21 Principal diagnosis: Pneumonia Patient is 81-year-old male who was recently admitted to this facility with secondary heart block status post pacemaker placement readmitted to the hospital with fever evidence of pneumonia and did have a positive covid test. On today's evaluation that is 11/17/2021 the patient did spike a fever this morning of 102F the patient did have worsening of his respiratory status requiring a nonrebreather, the patient denies having any chest pain did continue to have a cough and is bringing up some sputum no sample was collected denies having any nausea no vomiting and abdominal pain did have 2 loose stools today Objective - Vital Signs Vital signs: Vital Signs Temp 99.1 F 11/17/21 12:00 Pulse 84 11/17/21 12:00 Resp 22 11/17/21 12:00 BP 135/62 11/17/21 12:00 Pulse Ox 90 L 11/17/21 12:00 Intake & Output 11/16/21 11/17/21 11/17/21 18:59 06:59 18:59 Intake Total 240 Output Total 700 1350 100 Balance -700 -1110 -100 Intake: Oral 240 Output: Urine 700 1350 100 Other: Voiding Method Toilet Urinal Urinal # Voids 1 1 # Bowel Movements 1 - Exam GENERAL DESCRIPTION: An elderly male lying in bed in no distress RESPIRATORY SYSTEM: Unlabored breathing , coarse breath sounds bilaterally HEART: S1 S2 regular rate and rhythm , ABDOMEN: Soft , no tenderness EXTREMITIES: No edema feet - Labs CBC & Chem 7: 11/17/21 16:23 11/17/21 16:23 Labs: Abnormal Lab Results - Last 24 Hours (Table) 11/16/21 11/16/21 11/16/21 Range/Units 00:20 16:27 19:27 D-Dimer (<0.60) mg/L FEU POC Glucose (mg/dL) 145 H 135 H (75-99) mg/dL Procalcitonin 0.29 H (0.02-0.09) ng/mL 11/16/21 11/16/21 11/17/21 Range/Units 19:38 19:38 05:44 D-Dimer 2.18 H (<0.60) mg/L FEU POC Glucose (mg/dL) 113 H (75-99) mg/dL Procalcitonin 1.47 H (0.02-0.09) ng/mL 11/17/21 Range/Units 11:22 D-Dimer (<0.60) mg/L FEU POC Glucose (mg/dL) 128 H (75-99) mg/dL Procalcitonin (0.02-0.09) ng/mL Microbiology - Last 24 Hours (Table) 11/16/21 00:20 Blood Culture - Preliminary Blood No Growth after 24 hours Assessment and Plan (1) Pneumonia due to COVID-19 virus Current Visit: Yes Status: Acute Code(s): U07.1 - COVID-19; J12.82 - PNEUMONIA DUE TO CORONAVIRUS DISEASE 2018 SNOMED Code(s): 909443606950366124 Plan: 1patient presented to hospital with a fever increasing shortness of breath and this patient did have evidence of interstitial pneumonia on the chest x-ray with a positive COVID-19 testing however the patient has received Covid vaccination with a booster in August with the patient recent admission to the hospital and did have elevated white count with predominantly right upper lobe infiltrate underlying bacterial pneumonia not entirely excluded. 2 patient to continue with the Lovenox zinc ascorbic acid with and dexamethasone 3Continue with Zosyn , sputum culture has been requested again Time with Patient: Less than 30
[2021-11-18] MEDS ORDERED: LORazepam 2 MG/ML INJ IV STA (00:04)
[2021-11-18 00:05] LABS: Glucose,Whole Blood 151 mg/dL (75-99)
--- NOTE | 2021-11-18 00:35 | P.EN ---
A team note RN called A team , due to increase work of breathing and worsening hypoxemia while on airvo. patient looks alert, but anxious, tachypnea , hypoxemia low 80s% lungs sound ronchorus bilaterally patient initiated on bipap, seems to tolerate well. oxygen improved to 92% check ABG in 1 hour continue close monitoring quick increase in oxygen requirement over 1-2 days, d dimer check yesterday 2.18 recheck d dimer in AM continue current treatment otherwise. patient looks more calm after bipap which he seems to tolerate pretty well. Total amount of critical care time spent was 35 minutes not counting procedures performed.
[2021-11-18 01:05] LABS: ABG Base Excess -5.4 mmol/L; ABG HCO3 21 mmol/L (21-25); ABG Oxygen Saturation 88.7 % (94-97); ABG PCO2 39 mmHg (35-45); ABG PH 7.33 (7.35-7.45); ABG TCO2 22 mmol/L (19-24); Allen Test Performed? Yes
[2021-11-18 01:13] LABS: ABG PO2 57 mmHg (83-108)
[2021-11-18] MEDS: MORPHINE SULFATE 4 MG/ML SYRINGE IV PRN (01:14)
[2021-11-18 06:15] LABS: Glucose,Whole Blood 139 mg/dL (75-99)
[2021-11-18] MEDS: carvediloL 6.25 MG TAB PO SCH ×2 (06:28→18:32)
[2021-11-18] MEDS: INSULIN DETEMIR (LEVEMIR) 100 UNIT/ML SYR SQ SCH (06:28)
[2021-11-18] MEDS: INSULIN ASPART (NovoLOG) 100 UNIT/ML VIAL SQ SCH ×4 (06:28→21:27)
[2021-11-18] MEDS: LEVOTHYROXINE 50 MCG TAB PO SCH (06:28)
[2021-11-18] MEDS: LORazepam 2 MG/ML INJ IV PRN ×2 (06:29→18:32)
[2021-11-18 08:44] LABS: Glucose,Whole Blood 121 mg/dL (75-99)
[2021-11-18] MEDS: ALBUTEROL HFA INHALER INHALATION SCH ×4 (08:50→19:06)
[2021-11-18] MEDS: PIPERACILLIN-TAZOBACTAM 3.375 GM in SODIUM CHLORIDE 0.9% 100 ML IVPB SCH (10:35)
[2021-11-18] MEDS: ENOXAPARIN 30 MG/0.3 ML SYRINGE SQ SCH (10:35)
[2021-11-18] MEDS: FAMOTIDINE 20 MG TAB PO SCH (10:36)
[2021-11-18] MEDS: DEXAMETHASONE SOD PHOSPHATE 10 MG/ML 1 ML VIAL IV SCH (10:36)
[2021-11-18] MEDS: PRIMIDONE 50 MG TAB PO SCH ×4 (10:36→22:49)
[2021-11-18] MEDS: SODIUM BICARBONATE TAB 650 MG TAB PO SCH ×4 (10:37→22:49)
[2021-11-18] MEDS: SERTRALINE 50 MG TAB PO SCH (10:37)
[2021-11-18] MEDS: GABAPENTIN 300 MG CAP PO SCH ×4 (10:37→22:49)
[2021-11-18] MEDS: ASCORBIC ACID 500 MG TAB PO SCH (10:37)
[2021-11-18] MEDS: amLODIPine 10 MG TAB PO SCH (10:37)
[2021-11-18] MEDS: ZINC SULFATE 220 MG CAP PO SCH (10:37)
[2021-11-18] MEDS: TAMSULOSIN 0.4 MG CAP.ER.24H PO SCH ×4 (10:37→22:44)
[2021-11-18] MEDS: FUROSEMIDE 40 MG TAB PO SCH (10:37)
[2021-11-18] MEDS: ASPIRIN 81 MG PO SCH (10:38)
--- NOTE | 2021-11-18 11:33 | P.PN ---
Subjective Progress Note Date: 11/18/21 Principal diagnosis: Coronavirus associated pneumonia. Pulmonary consult dated 11/17/2021. 81-year-old male, seen in the emergency room, on November 16. The patient came in for complaints of increasing shortness of breath, cough, fever, and increased heart rate. The patient tested positive for coronavirus, and actually is coronavirus associated pneumonia. The patient was seen by infectious diseases. There was some concern about possible bacterial pneumonia as well. The patient was placed on Zosyn. The patient has been vaccinated against coronavirus. Currently, the patient's on both a 15 L high flow oxygen, and a nonrebreather mask. Saturations are in the low 90s. The patient's not receiving any IV liquids. He is a bit short of breath, speaking, but there is no audible wheezing, or use of accessory muscles. Labs from yesterday show white count of 13.2, hemoglobin 10.7, hematocrit 31.8, platelet count is 176,000. D-dimer was 2.18. PTT is 37.3. Sodium 133, potassium 4.3, chlorides 100, CO2 20, anion gap 13, BUN 36, creatinine 2.50. Because of the patient's renal function, the patient is not a candidate for REM. In addition, the patient's on Zosyn for suspected bacterial pneumonia as well, and is therefore not a candidate for DOMENICO. The patient has not been feeling well for about 3 or 4 days. Was recently an inpatient here, for dual-chamber pacemaker implantation, for secondary heart block. Dopplers of bilateral lower extremities are negative for DVT. Chest x-ray shows diffuse bilateral infiltrates, with greatest consolidation in the right upper lobe. Progress note dated 11/18/2021. This is an 81-year-old male who I saw yesterday in consultation. He was initially seen in the emergency department, on November 16. He came with complaints of shortness of breath, cough, fever, and increased heart rate. He did test positive for coronavirus, and is thought to have coronavirus associated pneumonia. The patient has done poorly over the last 24 hours. He is now on BiPAP at 12/6 and 100% FiO2. Saturations are in the mid to high 80s. The patient apparently has decided that he wants to be a full code. I'm not sure that he understands, and I will call his to clarify. D-dimer was 3.15. PO2 was 57, pCO2 39, and pH 7.33, on an FiO2 of 100%. I'm assuming that was on BiPAP. I did not order the blood gas myself. It was likely ordered by the rapid response team. No additional laboratory data today. Objective - Vital Signs Vital signs: Vital Signs Temp 98 F 11/18/21 08:00 Pulse 71 11/18/21 08:00 Resp 27 H 11/18/21 08:00 BP 111/58 11/18/21 08:00 Pulse Ox 90 L 11/18/21 03:52 Intake & Output 11/17/21 11/18/21 11/18/21 18:59 06:59 18:59 Intake Total 240 Output Total 300 200 250 Balance -300 40 -250 Weight 71.5 kg Intake: Oral 240 Output: Urine 300 200 250 Other: Voiding Method Urinal External Catheter Urinal # Voids 2 1 # Bowel Movements 2 - Exam The patient is a bit confused. He is on BiPAP. I tried to explain to him the whole concept of intubation and mechanical ventilation. I don't know that he understands. HEENT examination is grossly unremarkable. Neck supple. Full range of motion. No adenopathy thyromegaly or neck vein distention. Cardiovascular examination reveals regular rhythm rate. S1-S2 normal. No S3 or S4. No discernible murmur noted. Heart rate 93 bpm. Heart sounds are distant. Lungs reveal bilateral diffuse rhonchi. Bilateral crackles. No wheezes. Breath sounds equal bilaterally. Saturations in the low 90s and high 80s. Abdomen soft bowel sounds are heard. No masses or tenderness. Extremities are intact. No cyanosis clubbing or edema. Skin is without rash or lesion. Neurologic examination is brief but nonfocal. - Labs CBC & Chem 7: 11/17/21 16:23 11/17/21 16:23 Labs: Abnormal Lab Results - Last 24 Hours (Table) 11/17/21 11/17/21 11/17/21 Range/Units 11:22 16:23 16:23 WBC 12.6 H (3.8-10.6) k/uL RBC 3.18 L (4.30-5.90) m/uL Hgb 11.0 L (13.0-17.5) gm/dL Hct 35.5 L (39.0-53.0) % MCV 111.7 H D (80.0-100.0) fL MCHC 30.9 L (31.0-37.0) g/dL Neutrophils # 11.0 H (1.3-7.7) k/uL Lymphocytes # 0.8 L (1.0-4.8) k/uL D-Dimer (<0.60) mg/L FEU ABG pH (7.35-7.45) ABG pO2 (83-108) mmHg ABG O2 Saturation (94-97) % Sodium 134 L (137-145) mmol/L Carbon Dioxide 15 L (22-30) mmol/L BUN 52 H (9-20) mg/dL Creatinine 3.06 H (0.66-1.25) mg/dL Glucose 191 H (74-99) mg/dL POC Glucose (mg/dL) 128 H (75-99) mg/dL Calcium 7.4 L (8.4-10.2) mg/dL Phosphorus 5.5 H (2.5-4.5) mg/dL Alkaline Phosphatase 204 H (38-126) U/L Albumin 3.4 L (3.5-5.0) g/dL 11/17/21 11/17/21 11/17/21 Range/Units 16:34 20:13 23:54 WBC (3.8-10.6) k/uL RBC (4.30-5.90) m/uL Hgb (13.0-17.5) gm/dL Hct (39.0-53.0) % MCV (80.0-100.0) fL MCHC (31.0-37.0) g/dL Neutrophils # (1.3-7.7) k/uL Lymphocytes # (1.0-4.8) k/uL D-Dimer (<0.60) mg/L FEU ABG pH (7.35-7.45) ABG pO2 (83-108) mmHg ABG O2 Saturation (94-97) % Sodium (137-145) mmol/L Carbon Dioxide (22-30) mmol/L BUN (9-20) mg/dL Creatinine (0.66-1.25) mg/dL Glucose (74-99) mg/dL POC Glucose (mg/dL) 239 H 149 H 151 H (75-99) mg/dL Calcium (8.4-10.2) mg/dL Phosphorus (2.5-4.5) mg/dL Alkaline Phosphatase (38-126) U/L Albumin (3.5-5.0) g/dL 11/18/21 11/18/21 11/18/21 Range/Units 00:17 00:56 06:12 WBC (3.8-10.6) k/uL RBC (4.30-5.90) m/uL Hgb (13.0-17.5) gm/dL Hct (39.0-53.0) % MCV (80.0-100.0) fL MCHC (31.0-37.0) g/dL Neutrophils # (1.3-7.7) k/uL Lymphocytes # (1.0-4.8) k/uL D-Dimer 3.15 H (<0.60) mg/L FEU ABG pH 7.33 L (7.35-7.45) ABG pO2 57 L* (83-108) mmHg ABG O2 Saturation 88.7 L (94-97) % Sodium (137-145) mmol/L Carbon Dioxide (22-30) mmol/L BUN (9-20) mg/dL Creatinine (0.66-1.25) mg/dL Glucose (74-99) mg/dL POC Glucose (mg/dL) 139 H (75-99) mg/dL Calcium (8.4-10.2) mg/dL Phosphorus (2.5-4.5) mg/dL Alkaline Phosphatase (38-126) U/L Albumin (3.5-5.0) g/dL 11/18/21 Range/Units 08:42 WBC (3.8-10.6) k/uL RBC (4.30-5.90) m/uL Hgb (13.0-17.5) gm/dL Hct (39.0-53.0) % MCV (80.0-100.0) fL MCHC (31.0-37.0) g/dL Neutrophils # (1.3-7.7) k/uL Lymphocytes # (1.0-4.8) k/uL D-Dimer (<0.60) mg/L FEU ABG pH (7.35-7.45) ABG pO2 (83-108) mmHg ABG O2 Saturation (94-97) % Sodium (137-145) mmol/L Carbon Dioxide (22-30) mmol/L BUN (9-20) mg/dL Creatinine (0.66-1.25) mg/dL Glucose (74-99) mg/dL POC Glucose (mg/dL) 121 H (75-99) mg/dL Calcium (8.4-10.2) mg/dL Phosphorus (2.5-4.5) mg/dL Alkaline Phosphatase (38-126) U/L Albumin (3.5-5.0) g/dL Microbiology - Last 24 Hours (Table) 11/16/21 00:20 Blood Culture - Preliminary Blood No Growth after 48 hours 11/16/21 23:49 Blood Culture - Preliminary Blood No Growth after 24 hours Assessment and Plan Assessment: Acute hypoxemic respiratory failure, secondary to coronavirus associated pneumonia, with possible bacterial pneumonia as well. Recent hospitalization between November 10 and November 13, for second-degree heart block, status post dual-chamber pacemaker implantation. History of atrial fibrillation. History of diabetes mellitus. History of gastroesophageal reflux disease. History of hyperlipidemia. History of hypertension. History of hypothyroidism. History of diabetic neuropathy. Stage III chronic kidney disease. History of colon cancer, colonic resection. History of sleep apnea syndrome. Plan: Plan dated 11/17/2021. The patient is not a candidate for REM, because of his renal dysfunction. Addition, the patient's currently on Zosyn for suspected right upper lobe bacterial pneumonia, and hence is not a candidate for DOMENICO. The patient is currently on a nonrebreather mask and 15 L high flow nasal O2. The patient not receiving any IV fluids. The patient has been seen by infectious diseases. The patient is on vitamin C, zinc, and vitamin D3. The patient is currently also on Lovenox, and Decadron. Prognosis is guarded. If his oxygenation worsens, patient may be a candidate for AIRVO, BiPAP, or in the worse case scenario, intubation and mechanical ventilation. We will continue to follow make recommendations were appropriate. Prognosis is guarded. Plan dated 11/18/2021. The patient's overall condition has deteriorated. The patient is not on BiPAP at 100%. Arterial blood gases are borderline. Earlier today, he pulled off his BiPAP mask, and saturations drop down into the 60s. He is a bit tachypnea. I don't know that he understands my conversation about CODE STATUS, ICU, and intubation with mechanical ventilation. I am going to call his to discuss further. Prognosis is very poor. If he ends up in the intensive care unit, on the ventilator, I don't believe he will do well, and he will likely circumferential this illness, given the rapid progression of his disease. Additional recommendations and suggestions are forthcoming. Time with Patient: Less than 30
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
[2021-11-18 11:43] LABS: Glucose,Whole Blood 121 mg/dL (75-99)
--- NOTE | 2021-11-18 12:36 | P.PN ---
Subjective This is a 81 year old male with a past medical history significant for second degree heart block s/p dual chamber pacemaker implantation on 11/10/2021, coronary artery disease with 50% LAD lesion, hypertension, hyperlipidemia, and type 2 diabetes. Patient follows in the office with Dr. Green. We have been asked to see the patient in consultation for elevated troponin. Patient presented to the ER with a chief complaint of generalized aches, fever 101 at home, cough, and some mild shortness of breath for 1 day. Patient found to be Covid-19 positive. DIAGNOSTICS -EKG reveals V paced HR 110, repeat V-paced HR 81 -Chest xray Bilateral interstital pneumonia, which is more in the right upper lobe, new compared to old exam. No heart failure seen -Cardiac catheterization history: February 2010 revealing normal ejection fraction 50% mid LAD lesion -Patient underwent Lexiscan stress test in June 2021 which was negative for ischemia 11/18/2021 Patient seen and examined at bedside, patient requiring increased oxygenation overnight and this morning. He has been doing poorly over the next 24 hours. Confused. A team called overnight. Currently on BiPAP. Afebrile. BP 111/58. HR 70s-80s V paced. Echo revealed EF 55-60%, LVH, mild MR, mild TR Blood cultures have been negative growth to date. US dopplers no DVT bilaterally Patient is currently maintained on amlodipine 10 mg daily, aspirin 81 mg daily, atorvastatin 20 mg daily, carvedilol 6.25 mg twice a day, Lasix 40 mg daily, IV Zosyn, and Decadron PHYSICAL EXAM: VITAL SIGNS: Reviewed. GENERAL: Short of breath HEENT: Neck supple. No JVD LUNGS: Respirations even and unlabored. Lungs rhonchi bilaterally HEART: Bradycardic. Regular rate and rhythm. S1 and S2 heard. ABDOMEN: Soft. Nondistended. Nontender. EXTREMITIES: Normal range of motion. Peripheral pulses intact. No lower extremity edema NEUROLOGIC: Awake and alert. Oriented x 3. ASSESSMENT: Elevated troponin, likely related to febrile illness, Covid-19 pneumonia Covid-19 Pneumonia Acute hypoxic respiratory failure, secondary to Covid-19 Cough, Fever Generalized body aches Second degree heart block s/p dual chamber PPM on 11/10/2021 Coronary artery disease with 50% LAD lesion Hypertension Hyperlipidemia Diabetes, type 2 PLAN: Continue home cardiac medications Possible transfer to ICU and intubation may need to be required No further changes from a cardiology perspective at this time. Pulmonary following Further recommendations based on clinical course Nurse practitioner note has been reviewed by physician. Signing provider agrees with the documented findings, assessment, and plan of care. Objective - Vital Signs Vital signs: Vital Signs Temp 98 F 11/18/21 08:00 Pulse 71 11/18/21 08:00 Resp 27 H 11/18/21 08:00 BP 111/58 11/18/21 08:00 Pulse Ox 90 L 11/18/21 03:52 Intake & Output 11/17/21 11/18/21 11/18/21 18:59 06:59 18:59 Intake Total 240 Output Total 300 200 250 Balance -300 40 -250 Weight 71.5 kg Intake: Oral 240 Output: Urine 300 200 250 Other: Voiding Method Urinal External Catheter Urinal # Voids 2 1 # Bowel Movements 2 - Labs CBC & Chem 7: 11/17/21 16:23 11/17/21 16:23 Labs: Abnormal Lab Results - Last 24 Hours (Table) 11/17/21 11/17/21 11/17/21 Range/Units 16:23 16:23 16:34 WBC 12.6 H (3.8-10.6) k/uL RBC 3.18 L (4.30-5.90) m/uL Hgb 11.0 L (13.0-17.5) gm/dL Hct 35.5 L (39.0-53.0) % MCV 111.7 H D (80.0-100.0) fL MCHC 30.9 L (31.0-37.0) g/dL Neutrophils # 11.0 H (1.3-7.7) k/uL Lymphocytes # 0.8 L (1.0-4.8) k/uL D-Dimer (<0.60) mg/L FEU ABG pH (7.35-7.45) ABG pO2 (83-108) mmHg ABG O2 Saturation (94-97) % Sodium 134 L (137-145) mmol/L Carbon Dioxide 15 L (22-30) mmol/L BUN 52 H (9-20) mg/dL Creatinine 3.06 H (0.66-1.25) mg/dL Glucose 191 H (74-99) mg/dL POC Glucose (mg/dL) 239 H (75-99) mg/dL Calcium 7.4 L (8.4-10.2) mg/dL Phosphorus 5.5 H (2.5-4.5) mg/dL Alkaline Phosphatase 204 H (38-126) U/L Albumin 3.4 L (3.5-5.0) g/dL 11/17/21 11/17/21 11/18/21 Range/Units 20:13 23:54 00:17 WBC (3.8-10.6) k/uL RBC (4.30-5.90) m/uL Hgb (13.0-17.5) gm/dL Hct (39.0-53.0) % MCV (80.0-100.0) fL MCHC (31.0-37.0) g/dL Neutrophils # (1.3-7.7) k/uL Lymphocytes # (1.0-4.8) k/uL D-Dimer 3.15 H (<0.60) mg/L FEU ABG pH (7.35-7.45) ABG pO2 (83-108) mmHg ABG O2 Saturation (94-97) % Sodium (137-145) mmol/L Carbon Dioxide (22-30) mmol/L BUN (9-20) mg/dL Creatinine (0.66-1.25) mg/dL Glucose (74-99) mg/dL POC Glucose (mg/dL) 149 H 151 H (75-99) mg/dL Calcium (8.4-10.2) mg/dL Phosphorus (2.5-4.5) mg/dL Alkaline Phosphatase (38-126) U/L Albumin (3.5-5.0) g/dL 11/18/21 11/18/21 11/18/21 Range/Units 00:56 06:12 08:42 WBC (3.8-10.6) k/uL RBC (4.30-5.90) m/uL Hgb (13.0-17.5) gm/dL Hct (39.0-53.0) % MCV (80.0-100.0) fL MCHC (31.0-37.0) g/dL Neutrophils # (1.3-7.7) k/uL Lymphocytes # (1.0-4.8) k/uL D-Dimer (<0.60) mg/L FEU ABG pH 7.33 L (7.35-7.45) ABG pO2 57 L* (83-108) mmHg ABG O2 Saturation 88.7 L (94-97) % Sodium (137-145) mmol/L Carbon Dioxide (22-30) mmol/L BUN (9-20) mg/dL Creatinine (0.66-1.25) mg/dL Glucose (74-99) mg/dL POC Glucose (mg/dL) 139 H 121 H (75-99) mg/dL Calcium (8.4-10.2) mg/dL Phosphorus (2.5-4.5) mg/dL Alkaline Phosphatase (38-126) U/L Albumin (3.5-5.0) g/dL 11/18/21 Range/Units 11:42 WBC (3.8-10.6) k/uL RBC (4.30-5.90) m/uL Hgb (13.0-17.5) gm/dL Hct (39.0-53.0) % MCV (80.0-100.0) fL MCHC (31.0-37.0) g/dL Neutrophils # (1.3-7.7) k/uL Lymphocytes # (1.0-4.8) k/uL D-Dimer (<0.60) mg/L FEU ABG pH (7.35-7.45) ABG pO2 (83-108) mmHg ABG O2 Saturation (94-97) % Sodium (137-145) mmol/L Carbon Dioxide (22-30) mmol/L BUN (9-20) mg/dL Creatinine (0.66-1.25) mg/dL Glucose (74-99) mg/dL POC Glucose (mg/dL) 121 H (75-99) mg/dL Calcium (8.4-10.2) mg/dL Phosphorus (2.5-4.5) mg/dL Alkaline Phosphatase (38-126) U/L Albumin (3.5-5.0) g/dL Microbiology - Last 24 Hours (Table) 11/16/21 00:20 Blood Culture - Preliminary Blood No Growth after 48 hours 11/16/21 23:49 Blood Culture - Preliminary Blood No Growth after 24 hours
--- NOTE | 2021-11-18 12:50 | P.PN ---
Subjective Progress Note Date: 11/18/21 Principal diagnosis: fever Patient is a pleasant 81-year-old male that presented to the emergency room with fever, shortness of breath and tachycardia. Patient was hypoxic and tested positive for covid 19. White blood cell count was 13.2, troponin was elevated at 0.0569 and 0.078 Chest x-ray showed bilateral interstitial pneumonia which is more in the upper right lobe. Patient was recently discharged after pacemaker insertion. Pacemaker site is clean dry and intact, without symptoms of infection. Patient was admitted for hypoxia, infectious disease, pulmonary, and cardiology were consulted. Patient has an extensive medical history including hypertension, hyperlipidemia, coronary artery disease, chronic kidney disease, type 2 diabetes, anxiety, depression, hypothyroidism, BPH, restless leg syndrome, obstructive sleep apnea, osteoarthritis. Patient has history of heart catheterizations and pacemaker placement in October 2021. hospitalist coverage 11/16/21 11/17/2021 Patient seen and evaluated at bedside, patient in mild distress with shortness of breath at rest. Patient reports nausea, diarrhea, chills, weakness, body aches, productive cough and severe shortness of breath. Patient is currently requiring 15 L on nonrebreather and 15 L nasal cannula. Patient was not a candidate for rem treatment due to kidney function. Chest x-ray from today shows persistent heterogenous patchy opacity in the right upper to midlung zone with smaller obesities in the left mid to lower lungs. Echocardiogram showed severe concentric left ventricular hypertrophy with the EF of between 5560%. Infectious disease started IV Zosyn for pneumonia, IV Decadron. Kidney function labs from yesterday was slightly worse than normal, BUN 36, creatinine 2.5, GFR 23. Nephrology consulted. 11/18/2021 Patient was seen and examined at bedside. Patient was in severe distress, was on 100% BiPAP With oxygen saturations in the 80s. Patient was using accessory muscles for breathing and became confused, pulling on the BiPAP mask. Nursing reports that an A-team was called on patient this morning, ABGs from midnight show pO2 of 57 and O2 saturation of 88.7. Patient continues to struggle maintaining oxygen saturation on BiPAP, spoke with pulmonary about transferring patient to ICU. Discussed prognosis with , who is agreeable to intubation and ventilation. Had discussed CODE STATUS with patient prior to deterioration, he had stated he wanted to be a full code. Order was placed for transfer to ICU, will follow with lining baster recommendations. Objective - Vital Signs Vital signs: Vital Signs Temp 98 F 11/18/21 08:00 Pulse 71 11/18/21 08:00 Resp 27 H 11/18/21 08:00 BP 111/58 11/18/21 08:00 Pulse Ox 90 L 11/18/21 03:52 Intake & Output 11/17/21 11/18/21 11/18/21 18:59 06:59 18:59 Intake Total 240 Output Total 300 200 250 Balance -300 40 -250 Weight 71.5 kg Intake: Oral 240 Output: Urine 300 200 250 Other: Voiding Method Urinal External Catheter Urinal # Voids 2 1 # Bowel Movements 2 - Constitutional General appearance: Present: disheveled, severe distress - EENT Eyes: Present: EOMI Ears: bilateral: normal - Neck Neck: Present: normal ROM - Respiratory Respiratory: bilateral: diminished, rhonchi, wheezing - Cardiovascular Heart rate: 70 Rhythm: regular Heart sounds: normal: S1, S2 - Peripheral pulses radial pulse Peripheral Pulses: bilateral: Normal - Gastrointestinal General gastrointestinal: Present: normal bowel sounds, soft - Integumentary Integumentary: Present: pale - Neurologic Neurologic: Present: focal deficits - Musculoskeletal Musculoskeletal: Present: generalized weakness - Psychiatric Psychiatric Comment(s): alert, oriented to self - Allied health notes Allied health notes reviewed: nursing - Labs CBC & Chem 7: 11/17/21 16:23 11/17/21 16:23 Labs: Abnormal Lab Results - Last 24 Hours (Table) 11/17/21 11/17/21 11/17/21 Range/Units 16:23 16:23 16:34 WBC 12.6 H (3.8-10.6) k/uL RBC 3.18 L (4.30-5.90) m/uL Hgb 11.0 L (13.0-17.5) gm/dL Hct 35.5 L (39.0-53.0) % MCV 111.7 H D (80.0-100.0) fL MCHC 30.9 L (31.0-37.0) g/dL Neutrophils # 11.0 H (1.3-7.7) k/uL Lymphocytes # 0.8 L (1.0-4.8) k/uL D-Dimer (<0.60) mg/L FEU ABG pH (7.35-7.45) ABG pO2 (83-108) mmHg ABG O2 Saturation (94-97) % Sodium 134 L (137-145) mmol/L Carbon Dioxide 15 L (22-30) mmol/L BUN 52 H (9-20) mg/dL Creatinine 3.06 H (0.66-1.25) mg/dL Glucose 191 H (74-99) mg/dL POC Glucose (mg/dL) 239 H (75-99) mg/dL Calcium 7.4 L (8.4-10.2) mg/dL Phosphorus 5.5 H (2.5-4.5) mg/dL Alkaline Phosphatase 204 H (38-126) U/L Albumin 3.4 L (3.5-5.0) g/dL 11/17/21 11/17/21 11/18/21 Range/Units 20:13 23:54 00:17 WBC (3.8-10.6) k/uL RBC (4.30-5.90) m/uL Hgb (13.0-17.5) gm/dL Hct (39.0-53.0) % MCV (80.0-100.0) fL MCHC (31.0-37.0) g/dL Neutrophils # (1.3-7.7) k/uL Lymphocytes # (1.0-4.8) k/uL D-Dimer 3.15 H (<0.60) mg/L FEU ABG pH (7.35-7.45) ABG pO2 (83-108) mmHg ABG O2 Saturation (94-97) % Sodium (137-145) mmol/L Carbon Dioxide (22-30) mmol/L BUN (9-20) mg/dL Creatinine (0.66-1.25) mg/dL Glucose (74-99) mg/dL POC Glucose (mg/dL) 149 H 151 H (75-99) mg/dL Calcium (8.4-10.2) mg/dL Phosphorus (2.5-4.5) mg/dL Alkaline Phosphatase (38-126) U/L Albumin (3.5-5.0) g/dL 11/18/21 11/18/21 11/18/21 Range/Units 00:56 06:12 08:42 WBC (3.8-10.6) k/uL RBC (4.30-5.90) m/uL Hgb (13.0-17.5) gm/dL Hct (39.0-53.0) % MCV (80.0-100.0) fL MCHC (31.0-37.0) g/dL Neutrophils # (1.3-7.7) k/uL Lymphocytes # (1.0-4.8) k/uL D-Dimer (<0.60) mg/L FEU ABG pH 7.33 L (7.35-7.45) ABG pO2 57 L* (83-108) mmHg ABG O2 Saturation 88.7 L (94-97) % Sodium (137-145) mmol/L Carbon Dioxide (22-30) mmol/L BUN (9-20) mg/dL Creatinine (0.66-1.25) mg/dL Glucose (74-99) mg/dL POC Glucose (mg/dL) 139 H 121 H (75-99) mg/dL Calcium (8.4-10.2) mg/dL Phosphorus (2.5-4.5) mg/dL Alkaline Phosphatase (38-126) U/L Albumin (3.5-5.0) g/dL 11/18/21 Range/Units 11:42 WBC (3.8-10.6) k/uL RBC (4.30-5.90) m/uL Hgb (13.0-17.5) gm/dL Hct (39.0-53.0) % MCV (80.0-100.0) fL MCHC (31.0-37.0) g/dL Neutrophils # (1.3-7.7) k/uL Lymphocytes # (1.0-4.8) k/uL D-Dimer (<0.60) mg/L FEU ABG pH (7.35-7.45) ABG pO2 (83-108) mmHg ABG O2 Saturation (94-97) % Sodium (137-145) mmol/L Carbon Dioxide (22-30) mmol/L BUN (9-20) mg/dL Creatinine (0.66-1.25) mg/dL Glucose (74-99) mg/dL POC Glucose (mg/dL) 121 H (75-99) mg/dL Calcium (8.4-10.2) mg/dL Phosphorus (2.5-4.5) mg/dL Alkaline Phosphatase (38-126) U/L Albumin (3.5-5.0) g/dL Microbiology - Last 24 Hours (Table) 11/16/21 00:20 Blood Culture - Preliminary Blood No Growth after 48 hours 11/16/21 23:49 Blood Culture - Preliminary Blood No Growth after 24 hours Assessment and Plan Assessment: Covid 19 pneumonia Acute hypoxic respiratory failure Elevated troponin, ruled out cardiac cause Leukocytosis and fever Status post pacemaker placement for sinus bradycardia Chronic kidney disease, stage IV Type 2 diabetes Hypertension hyperlipidemia hypothyroidism History of colon cancer status post resection Plan: Continue IV antibiotics and steroids per infectious disease Continue supplemental oxygen to keep satO2 greater than 90%, transferring to ICU for probable intubation and ventilation Continue vitamin C, vitamin D, and zinc Continue to monitor kidney function labs, nephrology consult Monitor Pacemaker incision site for infection Sliding-scale insulin and Levemir ordered, assess blood glucose before meals at bedtime Subcu Lovenox for DVT prophylaxis Further recommendations to come based on patient's clinical course Time with Patient: Greater than 30
[2021-11-18 14:12] LABS: Glucose,Whole Blood 133 mg/dL (75-99)
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
[2021-11-18 18:35] LABS: Glucose,Whole Blood 139 mg/dL (75-99)
[2021-11-18] MEDS: ATORVASTATIN 20 MG TAB PO SCH ×3 (20:06→22:49)
[2021-11-18 21:26] LABS: Glucose,Whole Blood 146 mg/dL (75-99)
[2021-11-18] MEDS: SODIUM CHLORIDE 0.9% 1,000 ML IV SCH (22:32)
[2021-11-18] MEDS: ACETAMINOPHEN TAB 325 MG TAB PO PRN (22:43)
--- NOTE | 2021-11-18 22:53 | US ---
EXAMINATION TYPE: US kidneys/renal and bladder DATE OF EXAM: 11/18/2021 COMPARISON: Ultrasound dated 08/06/2020 CLINICAL HISTORY: rf. Renal failure, COVID [facility] patient EXAM MEASUREMENTS: Right Kidney: 11.0 x 6.2 x 5.3 cm Left Kidney: 9.5 x 5.8 x 4.3 cm Right Kidney: No hydronephrosis or masses seen Left Kidney: No hydronephrosis or masses seen Bladder: Distended There is no evidence for hydronephrosis at this point in time. No nephrolithiasis is seen. No melvina s are identified. Limited assessment of the urinary bladder. IMPRESSION: No evidence of definite renal lesion, calculi or hydronephrosis. Suboptimal assessment of the urinary bladder.
[2021-11-19] MEDS: PIPERACILLIN-TAZOBACTAM 3.375 GM in SODIUM CHLORIDE 0.9% 100 ML IVPB SCH ×2 (00:05→12:07)
[2021-11-19] MEDS ORDERED: FUROSEMIDE 10 MG/ML 10 ML VIAL IV STA (00:40)
[2021-11-19 06:32] LABS: Basophils # (A) 0.1 k/uL (0-0.2); Basophils % (A) 0 %; Eosinophils # (A) 0.2 k/uL (0-0.7); Eosinophils % (A) 1 %; HCT 34.7 % (39.0-53.0); HGB 11.1 gm/dL (13.0-17.5); Lymphocytes # (A) 0.8 k/uL (1.0-4.8); Lymphocytes % (A) 5 %; MCH 33.2 pg (25.0-35.0); MCHC 31.9 g/dL (31.0-37.0); Macrocytosis Slight; Mean Platelet Volume 10.4; Monocytes # (A) 0.5 k/uL (0-1.0); Monocytes % (A) 4 %; Neutrophils # (A) 13.6 k/uL (1.3-7.7); Neutrophils % (A) 89 %; Platelet Count 228 k/uL (150-450); RBC 3.34 m/uL (4.30-5.90); RDW 14.3 % (11.5-15.5); WBC 15.3 k/uL (3.8-10.6)
[2021-11-19 06:34] LABS: MCV 103.9 fL (80.0-100.0)
[2021-11-19] MEDS: carvediloL 6.25 MG TAB PO SCH (06:36)
[2021-11-19] MEDS: LEVOTHYROXINE 50 MCG TAB PO SCH (06:36)
[2021-11-19 06:44] LABS: Glucose,Whole Blood 120 mg/dL (75-99)
[2021-11-19] MEDS: INSULIN ASPART (NovoLOG) 100 UNIT/ML VIAL SQ SCH ×3 (06:56→20:18)
[2021-11-19 07:00] LABS: Calcium 7.4 mg/dL (8.4-10.2); Potassium 4.5 mmol/L (3.5-5.1)
[2021-11-19] MEDS: ALBUTEROL HFA INHALER INHALATION SCH ×4 (08:15→19:16)
[2021-11-19] MEDS: ZINC SULFATE 220 MG CAP PO SCH ×2 (08:16→09:20)
[2021-11-19] MEDS: DEXAMETHASONE SOD PHOSPHATE 10 MG/ML 1 ML VIAL IV SCH (08:16)
[2021-11-19] MEDS: LORazepam 2 MG/ML INJ IV PRN (08:16)
[2021-11-19] MEDS: GABAPENTIN 300 MG CAP PO SCH ×2 (08:16→09:20)
[2021-11-19] MEDS: FUROSEMIDE 40 MG TAB PO SCH ×2 (08:17→09:20)
[2021-11-19] MEDS: TAMSULOSIN 0.4 MG CAP.ER.24H PO SCH ×2 (08:17→09:18)
[2021-11-19] MEDS: FAMOTIDINE 20 MG TAB PO SCH ×2 (08:17→09:20)
[2021-11-19] MEDS: PRIMIDONE 50 MG TAB PO SCH ×2 (08:17→09:20)
[2021-11-19] MEDS: SERTRALINE 50 MG TAB PO SCH ×2 (08:17→09:20)
[2021-11-19] MEDS: ASPIRIN 81 MG PO SCH ×2 (08:17→09:19)
[2021-11-19] MEDS: amLODIPine 10 MG TAB PO SCH ×2 (08:17→09:19)
[2021-11-19] MEDS: ASCORBIC ACID 500 MG TAB PO SCH ×2 (08:17→09:19)
[2021-11-19] MEDS: SODIUM BICARBONATE TAB 650 MG TAB PO SCH ×2 (08:17→09:20)
[2021-11-19] MEDS: INSULIN DETEMIR (LEVEMIR) 100 UNIT/ML SYR SQ SCH (08:18)
--- NOTE | 2021-11-19 08:21 | XR ---
EXAMINATION TYPE: XR chest 1V portable DATE OF EXAM: 11/19/2021 COMPARISON: 11/17/2021 HISTORY: Shortness of breath TECHNIQUE: Single frontal view of the chest is obtained. FINDINGS: Cardiac device is seen and there is limited inspiration. Diffuse bilateral infiltrates are stable. Heart size stable. Hypertrophic and degenerative change of the spine. No pneumothorax. IMPRESSION: Diffuse bilateral infiltrate stable
[2021-11-19] MEDS: ENOXAPARIN 30 MG/0.3 ML SYRINGE SQ SCH (08:39)
--- NOTE | 2021-11-19 09:07 | P.PN ---
Subjective Progress Note Date: 11/19/21 Principal diagnosis: Coronavirus associated pneumonia. Pulmonary consult dated 11/17/2021. 81-year-old male, seen in the emergency room, on November 16. The patient came in for complaints of increasing shortness of breath, cough, fever, and increased heart rate. The patient tested positive for coronavirus, and actually is coronavirus associated pneumonia. The patient was seen by infectious diseases. There was some concern about possible bacterial pneumonia as well. The patient was placed on Zosyn. The patient has been vaccinated against coronavirus. Currently, the patient's on both a 15 L high flow oxygen, and a nonrebreather mask. Saturations are in the low 90s. The patient's not receiving any IV liquids. He is a bit short of breath, speaking, but there is no audible wheezing, or use of accessory muscles. Labs from yesterday show white count of 13.2, hemoglobin 10.7, hematocrit 31.8, platelet count is 176,000. D-dimer was 2.18. PTT is 37.3. Sodium 133, potassium 4.3, chlorides 100, CO2 20, anion gap 13, BUN 36, creatinine 2.50. Because of the patient's renal function, the patient is not a candidate for REM. In addition, the patient's on Zosyn for suspected bacterial pneumonia as well, and is therefore not a candidate for DOMENICO. The patient has not been feeling well for about 3 or 4 days. Was recently an inpatient here, for dual-chamber pacemaker implantation, for secondary heart block. Dopplers of bilateral lower extremities are negative for DVT. Chest x-ray shows diffuse bilateral infiltrates, with greatest consolidation in the right upper lobe. Progress note dated 11/18/2021. This is an 81-year-old male who I saw yesterday in consultation. He was initially seen in the emergency department, on November 16. He came with complaints of shortness of breath, cough, fever, and increased heart rate. He did test positive for coronavirus, and is thought to have coronavirus associated pneumonia. The patient has done poorly over the last 24 hours. He is now on BiPAP at 12/6 and 100% FiO2. Saturations are in the mid to high 80s. The patient apparently has decided that he wants to be a full code. I'm not sure that he understands, and I will call his to clarify. D-dimer was 3.15. PO2 was 57, pCO2 39, and pH 7.33, on an FiO2 of 100%. I'm assuming that was on BiPAP. I did not order the blood gas myself. It was likely ordered by the rapid response team. No additional laboratory data today. Progress note dated 11/19/2021. 81-year-old male, who was transferred to the intensive care unit yesterday. The patient has a history of hypoxemic respiratory failure secondary to coronavirus associated pneumonia. He was initially seen in the emergency department on November 16. The patient has continued to deteriorate, and has required BiPAP therapy, with settings of 15/6 and 100%. He's getting saline at 100 mL an hour. The patient has been stable all night according to the nurse. This morning, he pulled off his mask, and his saturations dropped to the. He did recover when the mask is placed back on him. Current laboratory data includes a white count 15.3, hemoglobin 11.1, hematocrit 34.7, and platelet count 228,000. Sodium is 137, potassium 4.5, chlorides 106, CO2 12, anion gap 19, BUN 75, and creatinine 4.84. Blood cultures are negative. Chest x-ray shows diffuse bilateral infiltrates consistent with coronavirus pneumonia. The patient's on appropriate medications including Decadron, Lovenox, and vitamins. She will have a PICC line placed today, so that we can start some peripheral parenteral nutrition. Objective - Vital Signs Vital signs: Vital Signs Temp 97.7 F 11/19/21 04:00 Pulse 76 11/19/21 06:00 Resp 21 11/19/21 06:00 BP 107/58 11/19/21 06:00 Pulse Ox 93 L 11/19/21 06:00 Intake & Output 11/18/21 11/19/21 11/19/21 18:59 06:59 18:59 Intake Total 130 1000 Output Total 250 110 Balance -120 890 Weight 75.5 kg Intake: IV 1000 Sodium Chloride 0.9% 1, 1000 000 ml @ 100 mls/hr IV . Q10H [facility] Rx#:[id number] Oral 130 Output: Urine 250 110 Other: Voiding Method Urinal Indwelling Catheter - Exam The patient is a bit confused. He is on BiPAP. Saturations are 93-97%. HEENT examination is grossly unremarkable. Neck supple. Full range of motion. No adenopathy thyromegaly or neck vein distention. Cardiovascular examination reveals regular rhythm rate. S1-S2 normal. No S3 or S4. No discernible murmur noted. Heart rate 76 bpm. Heart sounds are distant. Lungs reveal bilateral diffuse rhonchi. Bilateral crackles. No wheezes. Breath sounds equal bilaterally. Saturations are 93-97% on BiPAP at 100%. Abdomen soft bowel sounds are heard. No masses or tenderness. Extremities are intact. No cyanosis clubbing or edema. Skin is without rash or lesion. Neurologic examination is brief but nonfocal. - Labs CBC & Chem 7: 11/19/21 05:54 11/19/21 05:54 Labs: Abnormal Lab Results - Last 24 Hours (Table) 11/18/21 11/18/21 11/18/21 Range/Units 11:42 14:09 18:34 WBC (3.8-10.6) k/uL RBC (4.30-5.90) m/uL Hgb (13.0-17.5) gm/dL Hct (39.0-53.0) % MCV (80.0-100.0) fL Neutrophils # (1.3-7.7) k/uL Lymphocytes # (1.0-4.8) k/uL Carbon Dioxide (22-30) mmol/L BUN (9-20) mg/dL Creatinine (0.66-1.25) mg/dL Glucose (74-99) mg/dL POC Glucose (mg/dL) 121 H 133 H 139 H (75-99) mg/dL Calcium (8.4-10.2) mg/dL 11/18/21 11/19/21 11/19/21 Range/Units 21:24 05:54 05:54 WBC 15.3 H (3.8-10.6) k/uL RBC 3.34 L (4.30-5.90) m/uL Hgb 11.1 L (13.0-17.5) gm/dL Hct 34.7 L (39.0-53.0) % MCV 103.9 H D (80.0-100.0) fL Neutrophils # 13.6 H (1.3-7.7) k/uL Lymphocytes # 0.8 L (1.0-4.8) k/uL Carbon Dioxide 12 L (22-30) mmol/L BUN 75 H (9-20) mg/dL Creatinine 4.84 H (0.66-1.25) mg/dL Glucose 112 H (74-99) mg/dL POC Glucose (mg/dL) 146 H (75-99) mg/dL Calcium 7.4 L (8.4-10.2) mg/dL 11/19/21 Range/Units 06:43 WBC (3.8-10.6) k/uL RBC (4.30-5.90) m/uL Hgb (13.0-17.5) gm/dL Hct (39.0-53.0) % MCV (80.0-100.0) fL Neutrophils # (1.3-7.7) k/uL Lymphocytes # (1.0-4.8) k/uL Carbon Dioxide (22-30) mmol/L BUN (9-20) mg/dL Creatinine (0.66-1.25) mg/dL Glucose (74-99) mg/dL POC Glucose (mg/dL) 120 H (75-99) mg/dL Calcium (8.4-10.2) mg/dL Microbiology - Last 24 Hours (Table) 11/16/21 00:20 Blood Culture - Preliminary Blood No Growth after 72 hours 11/16/21 23:49 Blood Culture - Preliminary Blood No Growth after 48 hours Assessment and Plan Assessment: Acute hypoxemic respiratory failure, secondary to coronavirus associated pn eumonia, with possible bacterial pneumonia as well. Recent hospitalization between November 10 and November 13, for second-degree heart block, status post dual-chamber pacemaker implantation. History of atrial fibrillation. History of diabetes mellitus. History of gastroesophageal reflux disease. History of hyperlipidemia. History of hypertension. History of hypothyroidism. History of diabetic neuropathy. Stage III chronic kidney disease. History of colon cancer, colonic resection. History of sleep apnea syndrome. Plan: Plan dated 11/17/2021. The patient is not a candidate for REM, because of his renal dysfunction. Addition, the patient's currently on Zosyn for suspected right upper lobe bacterial pneumonia, and hence is not a candidate for DOMENICO. The patient is currently on a nonrebreather mask and 15 L high flow nasal O2. The patient not receiving any IV fluids. The patient has been seen by infectious diseases. The patient is on vitamin C, zinc, and vitamin D3. The patient is currently also on Lovenox, and Decadron. Prognosis is guarded. If his oxygenation worsens, patient may be a candidate for AIRVO, BiPAP, or in the worse case scenario, intubation and mechanical ventilation. We will continue to follow make recommendations were appropriate. Prognosis is guarded. Plan dated 11/18/2021. The patient's overall condition has deteriorated. The patient is not on BiPAP at 100%. Arterial blood gases are borderline. Earlier today, he pulled off his BiPAP mask, and saturations drop down into the 60s. He is a bit tachypnea. I don't know that he understands my conversation about CODE STATUS, ICU, and intubation with mechanical ventilation. I am going to call his to discuss further. Prognosis is very poor. If he ends up in the intensive care unit, on the ventilator, I don't believe he will do well, and he will likely circumferential this illness, given the rapid progression of his disease. Additional recommendations and suggestions are forthcoming. Plan dated 11/19/2021. The patient has been reasonably stable all night. This morning he pulled off his BiPAP mask, and he did desaturate down into the mid 60s. He did recover once the mass was placed back on his facial area. The patient will have either a midline or PICC line placed, for PPN. Currently, the patient's on saline at 100 mL an hour. The patient is receiving both Decadron and Lovenox. He does have worsening renal function. He remains on Zosyn as per infectious diseases. Unnecessary medications will be discontinued. The patient really cannot take anything by mouth. Prognosis is certainly guarded. I did have a long conversation with the patient's , and she insisted on intubation and mechanical ventilation should it come to that. Time with Patient: Greater than 30
[2021-11-19] MEDS ORDERED: LIDOCAINE 1% INJ 10MG/ML (20 ML MDV) SQ ONE (10:27)
[2021-11-19] MEDS ORDERED: PANTOPRAZOLE 40 MG/10 ML VIAL IVP SCH (10:45)
--- NOTE | 2021-11-19 10:58 | XR ---
EXAMINATION TYPE: XR chest 1V portable DATE OF EXAM: 11/19/2021 COMPARISON: 11/19/2021 HISTORY: PICC line placement FINDINGS: There are bilateral pleural effusions with cardiomegaly and bibasilar infiltrate. There is a diffuse interstitial pattern. Right-sided PICC line seen with the tip overlying the cavoatrial junction. Car diac device noted. Hypertrophic and degenerative change spine. IMPRESSION: 1. PICC line as discussed above with stable diffuse bilateral airspace disease correlate for diffuse pneumonia, pulmonary edema or ARDS.
--- NOTE | 2021-11-19 11:00 | P.PN ---
Subjective Progress Note Date: 11/19/21 This is a 81 year old male with a past medical history significant for second degree heart block s/p dual chamber pacemaker implantation on 11/10/2021, coronary artery disease with 50% LAD lesion, hypertension, hyperlipidemia, and type 2 diabetes. Patient follows in the office with Dr. Green. We have been asked to see the patient in consultation for elevated troponin. Patient presented to the ER with a chief complaint of generalized aches, fever 101 at home, cough, and some mild shortness of breath for 1 day. Patient found to be Covid-19 positive. Patient is examined in the ICU resting comfortably today. He is dependent on his BiPAP at this time. Patient was transferred due to increased oxygen demands and hypoxia. At this time he is unable to wean down on the BiPAP. Due to the fact that when he takes it off. he desats into the 50s and 60s and have to bump back up to 100% BiPAP. Patient is unable to take oral medications due to not being able to tolerate the BiPAP off. He is being scheduled for a PICC line today and consider for possible TPN. He had an echocardiogram which showed an normal LV systolic function EF of 55-60% with LVH and mild MR and mild TR. Patient has had low urine output, he has stage III kidney disease. They tried a one-time dose of Lasix yesterday. He remains to have low output his creatinine is 4.84. Will hold Lasix due to increased creatinine, and patient is unable to tolerate medications by mouth. Chest x-ray showed stable bilateral infiltrates. He underwent a ultrasound of the abdomen and kidneys which showed no evidence of renal lesion, calculi, or hydronephrosis Objective - Vital Signs Vital signs: Vital Signs Temp 97.4 F L 11/19/21 08:00 Pulse 64 11/19/21 10:00 Resp 20 11/19/21 10:00 BP 93/46 11/19/21 10:00 Pulse Ox 98 11/19/21 10:00 Intake & Output 11/18/21 11/19/21 11/19/21 18:59 06:59 18:59 Intake Total 130 1000 300 Output Total 250 110 25 Balance -120 890 275 Weight 75.5 kg Intake: IV 1000 300 Sodium Chloride 0.9% 1, 1000 300 000 ml @ 100 mls/hr IV . Q10H [facility] Rx#:[id number] Oral 130 Output: Urine 250 110 25 Other: Voiding Method Urinal Indwelling Catheter Indwelling Catheter - Exam PHYSICAL EXAM: VITAL SIGNS: Reviewed. Labs reviewed GENERAL: Well-developed in no acute distress. HEENT: Head is normocephalic. Pupils are equal, round. Sclerae anicteric. Mucous membranes of the mouth are moist. NECK: Supple. No JVD or thyromegaly RESPIRATORY: Respirations even and unlabored. Lungs diminished to auscultation bilaterally. Patient is dependent on 100% BiPAP CARDIO: Regular rate and rhythm. S1 and S2 heard. No murmur or gallops. EXTREMITIES: Normal range of motion. No clubbing or cyanosis. Peripheral pulses intact. Negative for bilateral lower extremity edema NEURO: Sleeping, resting comfortably - Labs CBC & Chem 7: 11/19/21 05:54 11/19/21 05:54 Labs: Abnormal Lab Results - Last 24 Hours (Table) 11/18/21 11/18/21 11/18/21 Range/Units 11:42 14:09 18:34 WBC (3.8-10.6) k/uL RBC (4.30-5.90) m/uL Hgb (13.0-17.5) gm/dL Hct (39.0-53.0) % MCV (80.0-100.0) fL Neutrophils # (1.3-7.7) k/uL Lymphocytes # (1.0-4.8) k/uL Carbon Dioxide (22-30) mmol/L BUN (9-20) mg/dL Creatinine (0.66-1.25) mg/dL Glucose (74-99) mg/dL POC Glucose (mg/dL) 121 H 133 H 139 H (75-99) mg/dL Calcium (8.4-10.2) mg/dL 11/18/21 11/19/21 11/19/21 Range/Units 21:24 05:54 05:54 WBC 15.3 H (3.8-10.6) k/uL RBC 3.34 L (4.30-5.90) m/uL Hgb 11.1 L (13.0-17.5) gm/dL Hct 34.7 L (39.0-53.0) % MCV 103.9 H D (80.0-100.0) fL Neutrophils # 13.6 H (1.3-7.7) k/uL Lymphocytes # 0.8 L (1.0-4.8) k/uL Carbon Dioxide 12 L (22-30) mmol/L BUN 75 H (9-20) mg/dL Creatinine 4.84 H (0.66-1.25) mg/dL Glucose 112 H (74-99) mg/dL POC Glucose (mg/dL) 146 H (75-99) mg/dL Calcium 7.4 L (8.4-10.2) mg/dL 11/19/21 Range/Units 06:43 WBC (3.8-10.6) k/uL RBC (4.30-5.90) m/uL Hgb (13.0-17.5) gm/dL Hct (39.0-53.0) % MCV (80.0-100.0) fL Neutrophils # (1.3-7.7) k/uL Lymphocytes # (1.0-4.8) k/uL Carbon Dioxide (22-30) mmol/L BUN (9-20) mg/dL Creatinine (0.66-1.25) mg/dL Glucose (74-99) mg/dL POC Glucose (mg/dL) 120 H (75-99) mg/dL Calcium (8.4-10.2) mg/dL Microbiology - Last 24 Hours (Table) 11/16/21 00:20 Blood Culture - Preliminary Blood No Growth after 72 hours 11/16/21 23:49 Blood Culture - Preliminary Blood No Growth after 48 hours Assessment and Plan Assessment: Elevated troponin, likely related to febrile illness, Covid-19 pneumonia Covid-19 Pneumonia Acute hypoxic respiratory failure, secondary to Covid-19 Cough, Fever Second degree heart block s/p dual chamber PPM on 11/10/2021 Coronary artery disease with 50% LAD lesion Hypertension Hyperlipidemia Diabetes, type 2 Plan: Continue home cardiac medications Continue to titrate BiPAP as tolerated Hold by mouth and IV Lasix due to increased creatinine No further changes from a cardiology perspective at this time. Pulmonary following Further recommendations based on clinical course The above impression and plan of care have been discussed and directed by the signing physician. Bettye Marquez, nurse practitioner, acting as scribe for signing physician.
--- NOTE | 2021-11-19 11:14 | P.PN ---
Subjective Patient is a 81-year-old male with history of type 2 diabetes, chronic A. fib, hypertension who was admitted to the hospital with complaints of shortness of breath. Patient tested positive focal vulvitis and is being treated for "with pneumonia and possible superimposed bacterial pneumonia. Patient has been maintained on BiPAP and had been fairly stable. Serum creatinine was 2.5 on initial admission and it has increased to 4.8 today. Overnight patient had poor urine output. Overnight patient's respiratory status worsened and he was transferred to the ICU. Apparently patient had taken off the BiPAP. Currently patient remains on BiPAP. Case is discussed with nursing staff. He has had minimal urine output. Systolic blood pressure ranging between 93-1 12 mmHg Objective - Vital Signs Vital signs: Vital Signs Temp 97.4 F L 11/19/21 08:00 Pulse 64 11/19/21 10:00 Resp 20 11/19/21 10:00 BP 93/46 11/19/21 10:00 Pulse Ox 98 11/19/21 10:00 Intake & Output 11/18/21 11/19/21 11/19/21 18:59 06:59 18:59 Intake Total 130 1000 300 Output Total 250 110 25 Balance -120 890 275 Weight 75.5 kg Intake: IV 1000 300 Sodium Chloride 0.9% 1, 1000 300 000 ml @ 100 mls/hr IV . Q10H [facility] Rx#:[id number] Oral 130 Output: Urine 250 110 25 Other: Voiding Method Urinal Indwelling Catheter Indwelling Catheter - Exam Patient is awake he is currently on BiPAP. He is having a PICC line placed. Case is discussed with nursing staff. - Labs CBC & Chem 7: 11/19/21 05:54 11/19/21 05:54 Labs: Abnormal Lab Results - Last 24 Hours (Table) 11/18/21 11/18/21 11/18/21 Range/Units 11:42 14:09 18:34 WBC (3.8-10.6) k/uL RBC (4.30-5.90) m/uL Hgb (13.0-17.5) gm/dL Hct (39.0-53.0) % MCV (80.0-100.0) fL Neutrophils # (1.3-7.7) k/uL Lymphocytes # (1.0-4.8) k/uL Carbon Dioxide (22-30) mmol/L BUN (9-20) mg/dL Creatinine (0.66-1.25) mg/dL Glucose (74-99) mg/dL POC Glucose (mg/dL) 121 H 133 H 139 H (75-99) mg/dL Calcium (8.4-10.2) mg/dL 11/18/21 11/19/21 11/19/21 Range/Units 21:24 05:54 05:54 WBC 15.3 H (3.8-10.6) k/uL RBC 3.34 L (4.30-5.90) m/uL Hgb 11.1 L (13.0-17.5) gm/dL Hct 34.7 L (39.0-53.0) % MCV 103.9 H D (80.0-100.0) fL Neutrophils # 13.6 H (1.3-7.7) k/uL Lymphocytes # 0.8 L (1.0-4.8) k/uL Carbon Dioxide 12 L (22-30) mmol/L BUN 75 H (9-20) mg/dL Creatinine 4.84 H (0.66-1.25) mg/dL Glucose 112 H (74-99) mg/dL POC Glucose (mg/dL) 146 H (75-99) mg/dL Calcium 7.4 L (8.4-10.2) mg/dL 11/19/21 Range/Units 06:43 WBC (3.8-10.6) k/uL RBC (4.30-5.90) m/uL Hgb (13.0-17.5) gm/dL Hct (39.0-53.0) % MCV (80.0-100.0) fL Neutrophils # (1.3-7.7) k/uL Lymphocytes # (1.0-4.8) k/uL Carbon Dioxide (22-30) mmol/L BUN (9-20) mg/dL Creatinine (0.66-1.25) mg/dL Glucose (74-99) mg/dL POC Glucose (mg/dL) 120 H (75-99) mg/dL Calcium (8.4-10.2) mg/dL Microbiology - Last 24 Hours (Table) 11/16/21 00:20 Blood Culture - Preliminary Blood No Growth after 72 hours 11/16/21 23:49 Blood Culture - Preliminary Blood No Growth after 48 hours Assessment and Plan Assessment: 1. Acute kidney injury ATN associated with COVID pneumonia and hypotension, currently oliguric with worsening renal function. 2. Chronic kidney disease NKF stage IV secondary to diabetic kidney disease baseline creatinine around 2 mg/dL 3. Covid pneumonia with high oxygen requirement currently maintained on BiPAP. possible superimposed bacterial pneumonia, maintained on antibiotics 4. Recent hospitalization on November 10 for second-degree heart block status post dual-chamber pacemaker implantation 5. History of chronic A. fib 6. History of type 2 diabetes 7. History of colon cancer status post resection 8. Metabolic acidosis maintained on oral sodium bicarb 9. 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 Continue antibiotics as per ID
[2021-11-19 11:21] VITALS: BMI 26.0
--- NOTE | 2021-11-19 12:04 | IR ---
EXAMINATION TYPE: IR cvc insert >=5 years DATE OF EXAM: 11/19/2021 COMPARISON: NONE HISTORY: Covid infection, needs long-term intravenous access for total parenteral nutrition FINDINGS: Maximal barrier technique was utilized. Hand hygiene obtained with soap and water and alco hol-based hand rub. The skin overlying the right brachial vein was localized with ultrasound and note d to be compressible and patent by ultrasound. An ultrasound image was obtained and submitted on pat chris's chart. Sterile technique utilized with the ultrasound machine. The skin overlying was prepped and draped and Lidocaine used for local anesthesia. A skin pamela was made with a scalpel. Access was gained to the vein under direct ultrasound guidance with a 21-gauge needle and a 0.018 inch wire was advanced. Access site was dilated with a peel-away sheath and the catheter tailored to length. Cat heter advanced centrally and a post procedure chest x-ray verified placement with tip at the superior vena cava. Catheter was fixed to the skin and a sterile dressing placed. Hemostasis achieved and t he catheter was aspirated and flushed with sterile saline. The patient remained in stable condition. IMPRESSION: STATUS POST ULTRASOUND GUIDED PICC LINE PLACEMENT, READY FOR USE. THIS PROCEDURE WAS PER FORMED BY THE UNDERSIGNED.
[2021-11-19] MEDS: SODIUM CHLORIDE 0.9% 1,000 ML IV SCH (12:07)
[2021-11-19] MEDS: DEXTROSE 5% IN WATER 1,000 ML with SODIUM BICARB (1 MEQ/ML) 150 ML IV SCH (12:07)
[2021-11-19 12:14] LABS: Prothrombin Time 11.2 sec (9.0-12.0)
[2021-11-19 12:24] LABS: Glucose,Whole Blood 125 mg/dL (75-99)
[2021-11-19 12:50] LABS: LDH 1750 U/L (313-618); Magnesium 2.2 mg/dL (1.6-2.3); Phosphorus 8.4 mg/dL (2.5-4.5)
--- NOTE | 2021-11-19 13:06 | P.PN ---
Subjective Progress Note Date: 11/19/21 Principal diagnosis: fever Patient is a pleasant 81-year-old male that presented to the emergency room with fever, shortness of breath and tachycardia. Patient was hypoxic and tested positive for covid 19. White blood cell count was 13.2, troponin was elevated at 0.0569 and 0.078 Chest x-ray showed bilateral interstitial pneumonia which is more in the upper right lobe. Patient was recently discharged after pacemaker insertion. Pacemaker site is clean dry and intact, without symptoms of infection. Patient was admitted for hypoxia, infectious disease, pulmonary, and cardiology were consulted. Patient has an extensive medical history including hypertension, hyperlipidemia, coronary artery disease, chronic kidney disease, type 2 diabetes, anxiety, depression, hypothyroidism, BPH, restless leg syndrome, obstructive sleep apnea, osteoarthritis. Patient has history of heart catheterizations and pacemaker placement in October 2021. hospitalist coverage 11/16/21 11/17/2021 Patient seen and evaluated at bedside, patient in mild distress with shortness of breath at rest. Patient reports nausea, diarrhea, chills, weakness, body aches, productive cough and severe shortness of breath. Patient is currently requiring 15 L on nonrebreather and 15 L nasal cannula. Patient was not a candidate for rem treatment due to kidney function. Chest x-ray from today shows persistent heterogenous patchy opacity in the right upper to midlung zone with smaller obesities in the left mid to lower lungs. Echocardiogram showed severe concentric left ventricular hypertrophy with the EF of between 5560%. Infectious disease started IV Zosyn for pneumonia, IV Decadron. Kidney function labs from yesterday was slightly worse than normal, BUN 36, creatinine 2.5, GFR 23. Nephrology consulted. 11/18/2021 Patient was seen and examined at bedside. Patient was in severe distress, was on 100% BiPAP With oxygen saturations in the 80s. Patient was using accessory muscles for breathing and became confused, pulling on the BiPAP mask. Nursing reports that an A-team was called on patient this morning, ABGs from midnight show pO2 of 57 and O2 saturation of 88.7. Patient continues to struggle maintaining oxygen saturation on BiPAP, spoke with pulmonary about transferring patient to ICU. Discussed prognosis with , who is agreeable to intubation and ventilation. Had discussed CODE STATUS with patient prior to deterioration, he had stated he wanted to be a full code. Order was placed for transfer to ICU, will follow with pharmacy operations specialist recommendations. 11/19/2021 Patient was seen and examined in ICU. Patient is lethargic, awakens to pain. Patient is confused, unable to answer questions appropriately. Patient is on 100% BiPAP maintaining oxygen saturations greater than 90%. Patient was reported to desat into the 60s when he removed the BiPAP mask. A PICC line was inserted to start parental nutrition as the patient is unable to tolerate being off BiPAP. Kidney function worsened, BUN 75, creatinine 4.8, GFR 10. White blood count jumped to 15.3. We'll continue to follow along with consultants recommendations. Objective - Vital Signs Vital signs: Vital Signs Temp 97.4 F L 11/19/21 12:00 Pulse 66 11/19/21 12:00 Resp 16 11/19/21 12:00 BP 115/58 11/19/21 12:00 Pulse Ox 96 11/19/21 12:00 Intake & Output 11/18/21 11/19/21 11/19/21 18:59 06:59 18:59 Intake Total 130 1000 500 Output Total 250 110 30 Balance -120 890 470 Weight 75.5 kg 75.5 kg Intake: IV 1000 500 Sodium Chloride 0.9% 1, 1000 500 000 ml @ 100 mls/hr IV . Q10H [facility] Rx#:[id number] Oral 130 Output: Urine 250 110 30 Other: Voiding Method Urinal Indwelling Catheter Indwelling Catheter - Constitutional General appearance: Present: average body habitus, disheveled - EENT ENT: Present: normal oropharynx - Neck Neck: Present: normal ROM - Respiratory Respiratory: bilateral: diminished, rhonchi, wheezing - Cardiovascular Heart rate: 66 Rhythm: regular Heart sounds: normal: S1, S2 - Peripheral pulses radial pulse Peripheral Pulses: bilateral: Normal - Gastrointestinal General gastrointestinal: Present: normal bowel sounds, soft - Integumentary Integumentary: Present: pale - Neurologic Neurologic: Present: focal deficits - Musculoskeletal Musculoskeletal: Present: generalized weakness - Psychiatric Psychiatric Comment(s): oriented to self - Allied health notes Allied health notes reviewed: nursing - Labs CBC & Chem 7: 11/19/21 05:54 11/19/21 05:54 Labs: Abnormal Lab Results - Last 24 Hours (Table) 11/18/21 11/18/2111/18/22 Range/Units 14:09 18:34 21:24 WBC (3.8-10.6) k/uL RBC (4.30-5.90) m/uL Hgb (13.0-17.5) gm/dL Hct (39.0-53.0) % MCV (80.0-100.0) fL Neutrophils # (1.3-7.7) k/uL Lymphocytes # (1.0-4.8) k/uL D-Dimer (<0.60) mg/L FEU Carbon Dioxide (22-30) mmol/L BUN (9-20) mg/dL Creatinine (0.66-1.25) mg/dL Glucose (74-99) mg/dL POC Glucose (mg/dL) 133 H 139 H 146 H (75-99) mg/dL Calcium (8.4-10.2) mg/dL 11/19/21 11/19/21 11/19/21 Range/Units 05:54 05:54 06:43 WBC 15.3 H (3.8-10.6) k/uL RBC 3.34 L (4.30-5.90) m/uL Hgb 11.1 L (13.0-17.5) gm/dL Hct 34.7 L (39.0-53.0) % MCV 103.9 H D (80.0-100.0) fL Neutrophils # 13.6 H (1.3-7.7) k/uL Lymphocytes # 0.8 L (1.0-4.8) k/uL D-Dimer (<0.60) mg/L FEU Carbon Dioxide 12 L (22-30) mmol/L BUN 75 H (9-20) mg/dL Creatinine 4.84 H (0.66-1.25) mg/dL Glucose 112 H (74-99) mg/dL POC Glucose (mg/dL) 120 H (75-99) mg/dL Calcium 7.4 L (8.4-10.2) mg/dL 11/19/21 11/19/21 Range/Units 11:22 12:22 WBC (3.8-10.6) k/uL RBC (4.30-5.90) m/uL Hgb (13.0-17.5) gm/dL Hct (39.0-53.0) % MCV (80.0-100.0) fL Neutrophils # (1.3-7.7) k/uL Lymphocytes # (1.0-4.8) k/uL D-Dimer 3.78 H (<0.60) mg/L FEU Carbon Dioxide (22-30) mmol/L BUN (9-20) mg/dL Creatinine (0.66-1.25) mg/dL Glucose (74-99) mg/dL POC Glucose (mg/dL) 125 H (75-99) mg/dL Calcium (8.4-10.2) mg/dL Microbiology - Last 24 Hours (Table) 11/16/21 00:20 Blood Culture - Preliminary Blood No Growth after 72 hours 11/16/21 23:49 Blood Culture - Preliminary Blood No Growth after 48 hours - Imaging and Cardiology Chest x-ray: report reviewed Assessment and Plan Assessment: Covid 19 pneumonia Acute hypoxic respiratory failure Elevated troponin, ruled out cardiac cause Leukocytosis and fever Status post pacemaker placement for sinus bradycardia Chronic kidney disease, stage V Type 2 diabetes Hypertension hyperlipidemia hypothyroidism History of colon cancer status post resection Plan: Continue IV antibiotics and steroids per infectious disease TPN ordered for nutrition needs Continue supplemental oxygen to keep satO2 greater than 90% Continue vitamin C, vitamin D, and zinc Continue to monitor kidney function labs, nephrology consult Monitor Pacemaker incision site for infection Sliding-scale insulin and Levemir ordered, assess blood glucose before meals at bedtime Subcu Lovenox for DVT prophylaxis Further recommendations to come based on patient's clinical course Time with Patient: Greater than 30
[2021-11-19 13:59] LABS: C Reactive Protein >45.0 mg/dL (<1.0)
[2021-11-19] MEDS ORDERED: FAT EMULSION 20% 500 ML IV SCH (14:00)
[2021-11-19] MEDS ORDERED: MVI, ADULT NO.4 WITH VIT K 10 ML, TRACE (CONC-1ML/DOSE) 1 ML, PARENTERAL ELECTROLYTES 2... IV ONE ×5 (14:00)
[2021-11-19] MEDS ORDERED: FUROSEMIDE 10 MG/ML 10 ML VIAL IV ONE (16:00)
[2021-11-19 18:32] LABS: Glucose,Whole Blood 271 mg/dL (75-99)
[2021-11-19] MEDS: MORPHINE SULFATE 4 MG/ML SYRINGE IV PRN (18:39)
[2021-11-19 20:08] LABS: Glucose,Whole Blood 270 mg/dL (75-99)
--- NOTE | 2021-11-19 22:31 | P.PN ---
Subjective Progress Note Date: 11/18/21 Principal diagnosis: Pneumonia Patient is 81-year-old male who was recently admitted to this facility with secondary heart block status post pacemaker placement readmitted to the hospital with fever evidence of pneumonia and did have a positive covid test. On today's evaluation that is 11/18/2021 the patient is afebrile today, the patient did have worsening of his respiratory status requiring bipap, the patient is lethargic and not a good historian today, no vomiting diarrhea or any other changes reported by the nursing staff Objective - Vital Signs Vital signs: Vital Signs Temp 98 F 11/18/21 08:00 Pulse 71 11/18/21 08:00 Resp 27 H 11/18/21 08:00 BP 111/58 11/18/21 08:00 Pulse Ox 90 L 11/18/21 03:52 Intake & Output 11/17/21 11/18/21 11/18/21 18:59 06:59 18:59 Intake Total 240 Output Total 300 200 250 Balance -300 40 -250 Weight 71.5 kg Intake: Oral 240 Output: Urine 300 200 250 Other: Voiding Method Urinal External Catheter Urinal # Voids 2 1 # Bowel Movements 2 - Exam GENERAL DESCRIPTION: An elderly male lying in bed in no distress RESPIRATORY SYSTEM: Unlabored breathing , coarse breath sounds bilaterally HEART: S1 S2 regular rate and rhythm , ABDOMEN: Soft , no tenderness EXTREMITIES: No edema feet - Labs CBC & Chem 7: 11/19/21 05:54 11/19/21 05:54 Labs: Abnormal Lab Results - Last 24 Hours (Table) 11/17/21 11/17/21 11/17/21 Range/Units 11:22 16:23 16:23 WBC 12.6 H (3.8-10.6) k/uL RBC 3.18 L (4.30-5.90) m/uL Hgb 11.0 L (13.0-17.5) gm/dL Hct 35.5 L (39.0-53.0) % MCV 111.7 H D (80.0-100.0) fL MCHC 30.9 L (31.0-37.0) g/dL Neutrophils # 11.0 H (1.3-7.7) k/uL Lymphocytes # 0.8 L (1.0-4.8) k/uL D-Dimer (<0.60) mg/L FEU ABG pH (7.35-7.45) ABG pO2 (83-108) mmHg ABG O2 Saturation (94-97) % Sodium 134 L (137-145) mmol/L Carbon Dioxide 15 L (22-30) mmol/L BUN 52 H (9-20) mg/dL Creatinine 3.06 H (0.66-1.25) mg/dL Glucose 191 H (74-99) mg/dL POC Glucose (mg/dL) 128 H (75-99) mg/dL Calcium 7.4 L (8.4-10.2) mg/dL Phosphorus 5.5 H (2.5-4.5) mg/dL Alkaline Phosphatase 204 H (38-126) U/L Albumin 3.4 L (3.5-5.0) g/dL 11/17/21 11/17/21 11/17/21 Range/Units 16:34 20:13 23:54 WBC (3.8-10.6) k/uL RBC (4.30-5.90) m/uL Hgb (13.0-17.5) gm/dL Hct (39.0-53.0) % MCV (80.0-100.0) fL MCHC (31.0-37.0) g/dL Neutrophils # (1.3-7.7) k/uL Lymphocytes # (1.0-4.8) k/uL D-Dimer (<0.60) mg/L FEU ABG pH (7.35-7.45) ABG pO2 (83-108) mmHg ABG O2 Saturation (94-97) % Sodium (137-145) mmol/L Carbon Dioxide (22-30) mmol/L BUN (9-20) mg/dL Creatinine (0.66-1.25) mg/dL Glucose (74-99) mg/dL POC Glucose (mg/dL) 239 H 149 H 151 H (75-99) mg/dL Calcium (8.4-10.2) mg/dL Phosphorus (2.5-4.5) mg/dL Alkaline Phosphatase (38-126) U/L Albumin (3.5-5.0) g/dL 11/18/21 11/18/21 11/18/21 Range/Units 00:17 00:56 06:12 WBC (3.8-10.6) k/uL RBC (4.30-5.90) m/uL Hgb (13.0-17.5) gm/dL Hct (39.0-53.0) % MCV (80.0-100.0) fL MCHC (31.0-37.0) g/dL Neutrophils # (1.3-7.7) k/uL Lymphocytes # (1.0-4.8) k/uL D-Dimer 3.15 H (<0.60) mg/L FEU ABG pH 7.33 L (7.35-7.45) ABG pO2 57 L* (83-108) mmHg ABG O2 Saturation 88.7 L (94-97) % Sodium (137-145) mmol/L Carbon Dioxide (22-30) mmol/L BUN (9-20) mg/dL Creatinine (0.66-1.25) mg/dL Glucose (74-99) mg/dL POC Glucose (mg/dL) 139 H (75-99) mg/dL Calcium (8.4-10.2) mg/dL Phosphorus (2.5-4.5) mg/dL Alkaline Phosphatase (38-126) U/L Albumin (3.5-5.0) g/dL 11/18/21 Range/Units 08:42 WBC (3.8-10.6) k/uL RBC (4.30-5.90) m/uL Hgb (13.0-17.5) gm/dL Hct (39.0-53.0) % MCV (80.0-100.0) fL MCHC (31.0-37.0) g/dL Neutrophils # (1.3-7.7) k/uL Lymphocytes # (1.0-4.8) k/uL D-Dimer (<0.60) mg/L FEU ABG pH (7.35-7.45) ABG pO2 (83-108) mmHg ABG O2 Saturation (94-97) % Sodium (137-145) mmol/L Carbon Dioxide (22-30) mmol/L BUN (9-20) mg/dL Creatinine (0.66-1.25) mg/dL Glucose (74-99) mg/dL POC Glucose (mg/dL) 121 H (75-99) mg/dL Calcium (8.4-10.2) mg/dL Phosphorus (2.5-4.5) mg/dL Alkaline Phosphatase (38-126) U/L Albumin (3.5-5.0) g/dL Microbiology - Last 24 Hours (Table) 11/16/21 00:20 Blood Culture - Preliminary Blood No Growth after 48 hours 11/16/21 23:49 Blood Culture - Preliminary Blood No Growth after 24 hours Assessment and Plan (1) Pneumonia due to COVID-19 virus Current Visit: Yes Status: Acute Code(s): U07.1 - COVID-19; J12.82 - PNEUMONIA DUE TO CORONAVIRUS DISEASE 2018 SNOMED Code(s): 383317065020858344 Plan: 1patient presented to hospital with a fever increasing shortness of breath and this patient did have evidence of interstitial pneumonia on the chest x-ray with a positive COVID-19 testing however the patient has received Covid vaccination with a booster in August with the patient recent admission to the hospital and did have elevated white count with predominantly right upper lobe infiltrate underlying bacterial pneumonia not entirely excluded. 2 patient to continue with the Lovenox zinc ascorbic acid with and dexamethasone 3patient to Continue with Zosyn , we'll try to obtain sputum culture to narrow down his antibiotics Time with Patient: Less than 30
--- NOTE | 2021-11-19 22:35 | P.PN ---
Subjective Progress Note Date: 11/19/21 Principal diagnosis: Pneumonia Patient is 81-year-old male who was recently admitted to this facility with secondary heart block status post pacemaker placement readmitted to the hospital with fever evidence of pneumonia and did have a positive covid test. On today's evaluation that is 11/19/2021 the patient remains to be afebrile, the patient has been moved out of the ICU has the patient was pulling off his BiPAP, patient is currently on the BiPAP is hemodynamically stable not requiring any pressor support, the patient remains to be lethargic, no vomiting diarrhea or any other changes reported by the nursing staff Objective - Vital Signs Vital signs: Vital Signs Temp 97.6 F 11/19/21 16:00 Pulse 73 11/19/21 19:00 Resp 21 11/19/21 19:00 BP 97/43 11/19/21 19:00 Pulse Ox 98 11/19/21 19:19 Intake & Output 11/19/21 11/19/21 11/20/21 06:59 18:59 06:59 Intake Total 1000 1236.4 146.6 Output Total 110 40 0 Balance 890 1196.4 146.6 Weight 75.5 kg 75.5 kg Intake: IV 1000 1236.4 146.6 Dextrose 5% in Water 1, 450 75 000 ml @ 75 mls/hr IV . [id number] [facility] with Sodium Bicarb (1 Meq/ml) 150 ml Rx#:[id number] Fat Emulsion 20% 500 ml @ 166.4 41.6 41.667 mls/hr IV Th@1400 [facility] Rx#:[id number] Mvi, Adult No.4 with Vit 120 30 K 10 ml Trace (Conc-1Ml/ Dose) 1 ml Parenteral Electrolytes 20 ml Calcium Gluconate 1 gm In Amino Acid 4.25%-D10w 1, 000 ml @ 30 mls/hr IV . Q24H [facility] Rx#:[id number] Sodium Chloride 0.9% 1, 1000 500 000 ml @ 100 mls/hr IV . Q10H [facility] Rx#:[id number] Output: Urine 110 40 0 Other: Voiding Method Indwelling Catheter Indwelling Catheter - Exam GENERAL DESCRIPTION: An elderly male lying in bed in mild distress RESPIRATORY SYSTEM: Unlabored breathing , coarse breath sounds bilaterally HEART: S1 S2 regular rate and rhythm , ABDOMEN: Soft , no tenderness EXTREMITIES: No edema feet - Labs CBC & Chem 7: 11/19/21 05:54 11/19/21 05:54 Labs: Abnormal Lab Results - Last 24 Hours (Table) 11/19/21 11/19/21 11/19/21 Range/Units 05:54 05:54 05:54 WBC 15.3 H (3.8-10.6) k/uL RBC 3.34 L (4.30-5.90) m/uL Hgb 11.1 L (13.0-17.5) gm/dL Hct 34.7 L (39.0-53.0) % MCV 103.9 H D (80.0-100.0) fL Neutrophils # 13.6 H (1.3-7.7) k/uL Lymphocytes # 0.8 L (1.0-4.8) k/uL D-Dimer (<0.60) mg/L FEU Carbon Dioxide 12 L (22-30) mmol/L BUN 75 H (9-20) mg/dL Creatinine 4.84 H (0.66-1.25) mg/dL Glucose 112 H (74-99) mg/dL POC Glucose (mg/dL) (75-99) mg/dL Calcium 7.4 L (8.4-10.2) mg/dL Phosphorus 8.4 H (2.5-4.5) mg/dL Lactate Dehydrogenase 1750 H (313-618) U/L C-Reactive Protein >45.0 H (<1.0) mg/dL Procalcitonin (0.02-0.09) ng/mL 11/19/21 11/19/21 11/19/21 Range/Units 06:43 11:22 12:18 WBC (3.8-10.6) k/uL RBC (4.30-5.90) m/uL Hgb (13.0-17.5) gm/dL Hct (39.0-53.0) % MCV (80.0-100.0) fL Neutrophils # (1.3-7.7) k/uL Lymphocytes # (1.0-4.8) k/uL D-Dimer 3.78 H (<0.60) mg/L FEU Carbon Dioxide (22-30) mmol/L BUN (9-20) mg/dL Creatinine (0.66-1.25) mg/dL Glucose (74-99) mg/dL POC Glucose (mg/dL) 120 H (75-99) mg/dL Calcium (8.4-10.2) mg/dL Phosphorus (2.5-4.5) mg/dL Lactate Dehydrogenase (313-618) U/L C-Reactive Protein (<1.0) mg/dL Procalcitonin 7.70 H (0.02-0.09) ng/mL 11/19/21 11/19/21 11/19/21 Range/Units 12:22 18:31 20:05 WBC (3.8-10.6) k/uL RBC (4.30-5.90) m/uL Hgb (13.0-17.5) gm/dL Hct (39.0-53.0) % MCV (80.0-100.0) fL Neutrophils # (1.3-7.7) k/uL Lymphocytes # (1.0-4.8) k/uL D-Dimer (<0.60) mg/L FEU Carbon Dioxide (22-30) mmol/L BUN (9-20) mg/dL Creatinine (0.66-1.25) mg/dL Glucose (74-99) mg/dL POC Glucose (mg/dL) 125 H 271 H 270 H (75-99) mg/dL Calcium (8.4-10.2) mg/dL Phosphorus (2.5-4.5) mg/dL Lactate Dehydrogenase (313-618) U/L C-Reactive Protein (<1.0) mg/dL Procalcitonin (0.02-0.09) ng/mL Microbiology - Last 24 Hours (Table) 11/16/21 00:20 Blood Culture - Preliminary Blood No Growth after 72 hours 11/16/21 23:49 Blood Culture - Preliminary Blood No Growth after 48 hours Assessment and Plan (1) Pneumonia due to COVID-19 virus Current Visit: Yes Status: Acute Code(s): U07.1 - COVID-19; J12.82 - PNEUMO HA DUE TO CORONAVIRUS DISEASE 2018 SNOMED Code(s): 193110330143150667 Plan: 1patient with acute respiratory failure which is multifactorial in this patient did have a covid 19 infection however the patient did have a elevated pro calcitonin which is now up to 7.7, patient is currently covered with an apparent Zosyn to continue and also continue with the Lovenox dexamethasone zinc and ascorbic acid prognosis remains to be guarded Time with Patient: Less than 30
[2021-11-20] MEDS: PIPERACILLIN-TAZOBACTAM 3.375 GM in SODIUM CHLORIDE 0.9% 100 ML IVPB SCH (00:06)
[2021-11-20 00:18] VITALS: TEMP 97.9
[2021-11-20] MEDS: INSULIN ASPART (NovoLOG) 100 UNIT/ML VIAL SQ SCH ×2 (01:31→05:19)
[2021-11-20] MEDS: DEXTROSE 5% IN WATER 1,000 ML with SODIUM BICARB (1 MEQ/ML) 150 ML IV SCH (02:46)
[2021-11-20 04:36] LABS: Glucose,Whole Blood 211 mg/dL (75-99)
[2021-11-20 05:50] LABS: ABG Base Excess -4.1 mmol/L; ABG HCO3 23 mmol/L (21-25); ABG PCO2 47 mmHg (35-45); ABG PH 7.29 (7.35-7.45); ABG TCO2 24 mmol/L (19-24); Allen Test Performed? Yes
[2021-11-20] MEDS ORDERED: EPINEPHrine 1 MG/ML (MDV) 30 ML VIAL ONE (06:10)
[2021-11-20] MEDS ORDERED: CALCIUM CHLORIDE 100 MG/ML 10 ML SYRINGE ONE (06:10)
[2021-11-20] MEDS ORDERED: SODIUM BICARB 8.4% 50 ML SYR (1 MEQ/ML) ONE ×2 (06:10→07:15)
[2021-11-20] MEDS ORDERED: SODIUM CHLORIDE 0.9% 250 ML BAG ONE (06:10)
[2021-11-20] MEDS ORDERED: NOREPINEPHRIN 4 MG-0.9% NS PMX 4 MG/250 ML ML IV ONE (06:18)
[2021-11-20 06:20] LABS: HCT 30.9 % (39.0-53.0); HGB 10.5 gm/dL (13.0-17.5); MCH 34.8 pg (25.0-35.0); MCV 102.4 fL (80.0-100.0); Macrocytosis Slight; Mean Platelet Volume 10.6; Platelet Count 221 k/uL (150-450); RBC 3.02 m/uL (4.30-5.90); RDW 13.9 % (11.5-15.5); WBC 14.1 k/uL (3.8-10.6)
[2021-11-20 06:25] LABS: Glucose,Whole Blood 255 mg/dL (75-99)
[2021-11-20 06:33] LABS: ABG PO2 41 mmHg (83-108)
[2021-11-20 06:34] LABS: Albumin 2.9 g/dL (3.5-5.0); Calcium 7.1 mg/dL (8.4-10.2); Phosphorus 6.1 mg/dL (2.5-4.5); Potassium 4.1 mmol/L (3.5-5.1); Total Bilirubin 1.2 mg/dL (0.2-1.3); Total Protein 5.6 g/dL (6.3-8.2)
--- NOTE | 2021-11-20 06:34 | P.EN ---
code blue note patient has a pacemaker, however he lost pulse after intubation, CPR initiated following ACLS protocol , ROSC achieved after one round of epi vital signs stable cxr reviewed to confirm ET tube placement continue supportive care
[2021-11-20] MEDS ORDERED: CISATRACURIUM 2 MG/ML 5 ML VIAL IV ONE ×2 (06:36→06:38)
--- NOTE | 2021-11-20 06:57 | XR ---
EXAM: XR Chest, 1 View CLINICAL HISTORY: ITS.REASON XR Reason: Tube placement TECHNIQUE: Frontal view of the chest. COMPARISON: CXR, same day. FINDINGS/IMPRESSION: Endotracheal tube terminates 2.3 cm above the zuleyka. Feeding tube terminates in the stomach. Right PICC line terminates in the SVC. Extensive bilateral airspace consolidations, consistent with multifocal pneumonia, minimally improving when compared CXR, earlier same day. No pneumothorax. Cardiomegaly. Calcified aorta.
[2021-11-20] MEDS ORDERED: SODIUM CHLORIDE 0.9% 2,000 ML IV ONE (07:03)
[2021-11-20] MEDS ORDERED: SODIUM CHLORIDE 0.9% 150 ML with VASOPRESSIN 60 UNIT IV SCH ×2 (07:30)
[2021-11-20 07:35] VITALS: BP 67/32; PULSE 60; RESP 0
--- NOTE | 2021-11-20 08:24 | XR ---
EXAMINATION TYPE: XR chest 1V portable DATE OF EXAM: 11/20/2021 COMPARISON: X-ray dated 11/19/2021 HISTORY: Covid TECHNIQUE: Single frontal view of the chest is obtained. FINDINGS: Extensive bilateral pulmonary areas of consolidation and alveolar opacities, apparently progressed co mpared to the previous x-ray. This is obscuring the cardiac border and the diaphragmatic border. Unchanged position of the left upper chest wall dual-lead pacemaker and right-sided PICC line. Cardia c size cannot be properly assessed. Small pleural effusion is difficult to confirm. IMPRESSION: Progressive pulmonary infiltration, suggestive of severe pneumonia versus severe pulmonary edema/ARDS , please correlate clinically.
[2021-11-20] MEDS ORDERED: CHLORHEXIDINE GLUCONATE 15 ML CUP MUCOUS MEM SCH (09:00)
--- NOTE | 2021-11-20 09:02 | P.PN ---
Subjective Progress Note Date: 11/20/21 Principal diagnosis: Coronavirus associated pneumonia. Pulmonary consult dated 11/17/2021. 81-year-old male, seen in the emergency room, on November 16. The patient came in for complaints of increasing shortness of breath, cough, fever, and increased heart rate. The patient tested positive for coronavirus, and actually is coronavirus associated pneumonia. The patient was seen by infectious diseases. There was some concern about possible bacterial pneumonia as well. The patient was placed on Zosyn. The patient has been vaccinated against coronavirus. Currently, the patient's on both a 15 L high flow oxygen, and a nonrebreather mask. Saturations are in the low 90s. The patient's not receiving any IV liquids. He is a bit short of breath, speaking, but there is no audible wheezing, or use of accessory muscles. Labs from yesterday show white count of 13.2, hemoglobin 10.7, hematocrit 31.8, platelet count is 176,000. D-dimer was 2.18. PTT is 37.3. Sodium 133, potassium 4.3, chlorides 100, CO2 20, anion gap 13, BUN 36, creatinine 2.50. Because of the patient's renal function, the patient is not a candidate for REM. In addition, the patient's on Zosyn for suspected bacterial pneumonia as well, and is therefore not a candidate for DOMENICO. The patient has not been feeling well for about 3 or 4 days. Was recently an inpatient here, for dual-chamber pacemaker implantation, for secondary heart block. Dopplers of bilateral lower extremities are negative for DVT. Chest x-ray shows diffuse bilateral infiltrates, with greatest consolidation in the right upper lobe. Progress note dated 11/18/2021. This is an 81-year-old male who I saw yesterday in consultation. He was initially seen in the emergency department, on November 16. He came with complaints of shortness of breath, cough, fever, and increased heart rate. He did test positive for coronavirus, and is thought to have coronavirus associated pneumonia. The patient has done poorly over the last 24 hours. He is now on BiPAP at 12/6 and 100% FiO2. Saturations are in the mid to high 80s. The patient apparently has decided that he wants to be a full code. I'm not sure that he understands, and I will call his to clarify. D-dimer was 3.15. PO2 was 57, pCO2 39, and pH 7.33, on an FiO2 of 100%. I'm assuming that was on BiPAP. I did not order the blood gas myself. It was likely ordered by the rapid response team. No additional laboratory data today. Progress note dated 11/19/2021. 81-year-old male, who was transferred to the intensive care unit yesterday. The patient has a history of hypoxemic respiratory failure secondary to coronavirus associated pneumonia. He was initially seen in the emergency department on November 16. The patient has continued to deteriorate, and has required BiPAP therapy, with settings of 15/6 and 100%. He's getting saline at 100 mL an hour. The patient has been stable all night according to the nurse. This morning, he pulled off his mask, and his saturations dropped to the. He did recover when the mask is placed back on him. Current laboratory data includes a white count 15.3, hemoglobin 11.1, hematocrit 34.7, and platelet count 228,000. Sodium is 137, potassium 4.5, chlorides 106, CO2 12, anion gap 19, BUN 75, and creatinine 4.84. Blood cultures are negative. Chest x-ray shows diffuse bilateral infiltrates consistent with coronavirus pneumonia. The patient's on appropriate medications including Decadron, Lovenox, and vitamins. She will have a PICC line placed today, so that we can start some peripheral parenteral nutrition. Progress note dated 11/20/2021. 81-year-old patient with a history of acute hypoxemic respiratory failure secondary to coronavirus associated pneumonia. The patient was transferred to the intensive care unit on November 18. In the ICU, the patient was on BiPAP. Early this morning, I get a message from the nurse, that his respiratory status had declined. I asked for a stat blood gas. The blood gas 100% showed a pO2 of 41, pCO2 47, and pH of 7.29. Immediately, I told the nurse to have anesthesia intubate the patient, and they did. He was intubated 5 minutes after 6 is morning. Initial vent settings were volume assist control, rate 24, tidal volume 450, FiO2 100% and PEEP of 10. He initially had a cardiac arrest at 619 in the morning. The patient was placed on fluids, propofol, norepinephrine, vasopressin, and received a dose of Nimbex 10 mg. The patient coded at least 2 more times, and received full resuscitation via ACLS protocol. Essentially at 7:25 AM, the code was discontinued. I did speak to Mrs. Duncan, who was in the hallway outside the patient's room. She was tearful, but understood that everything was done for her . Labs this morning included a white count 14.1, hemoglobin 10.5, hematocrit 30.9, platelet count 221,000. Sodium 132, potassium 4.1, chlorides 97, CO2 21, anion gap 14, BUN 87, and creatinine 5.69. Albumin was 2.9. Microbiologic studies were negative. The chest x-ray showed the endotracheal tube to be about 2-1/2 cm above the zuleyka. There is extensive bilateral airspace consolidations, consistent with coronavirus pneumonia. Objective - Vital Signs Vital signs: Vital Signs Temp 97.9 F 11/20/21 04:00 Pulse 60 11/20/21 07:00 Resp 0 L 11/20/21 07:00 BP 67/32 11/20/21 07:00 Pulse Ox 50 L 11/20/21 07:00 Intake & Output 11/19/21 11/20/21 11/20/21 18:59 06:59 18:59 Intake Total 1236.4 2604.4 Output Total 40 70 Balance 1196.4 2534.4 Weight 75.5 kg 77 kg Intake: IV 1236.4 1604.4 Dextrose 5% in Water 1, 450 900 000 ml @ 75 mls/hr IV . [id number] OCTAVIO with Sodium Bicarb (1 Meq/ml) 150 ml Rx#:[id number] Fat Emulsion 20% 500 ml @ 166.4 374.4 41.667 mls/hr IV Th@1400 OCTAVIO Rx#:[id number] Mvi, Adult No.4 with Vit 120 330 K 10 ml Trace (Conc-1Ml/ Dose) 1 ml Parenteral Electrolytes 20 ml Calcium Gluconate 1 gm In Amino Acid 4.25%-D10w 1, 000 ml @ 30 mls/hr IV . Q24H ONE Rx#:[id number] Sodium Chloride 0.9% 1, 500 000 ml @ 100 mls/hr IV . Q10H OCTAVIO Rx#:[id number] Intake, IV Titration 1000 Amount Sodium Chloride 0.9% 1, 1000 000 ml @ 100 mls/hr IV . Q10H OCTAVIO Rx#:[id number] Output: Urine 40 70 Other: Voiding Method Indwelling Catheter Indwelling Catheter - Exam The patient is unresponsive, and intubated. HEENT examination is grossly unremarkable. Neck supple. Full range of motion. No adenopathy thyromegaly or neck vein distention. Cardiovascular examination reveals regular rhythm rate. S1-S2 normal. No S3 or S4. No discernible murmur noted. Heart rate 60 bpm. Heart sounds are distant. Lungs reveal bilateral diffuse rhonchi. Bilateral crackles. No wheezes. Breath sounds equal bilaterally. Saturations are 71 % on 100% FIO2. Abdomen soft without bowel sounds. Extremities are intact. No cyanosis clubbing or edema. Skin is without rash or lesion. Neurologic examination cannot be assessed. - Labs CBC & Chem 7: 11/20/21 05:50 11/20/21 05:50 Labs: Abnormal Lab Results - Last 24 Hours (Table) 11/19/21 11/19/21 11/19/21 Range/Units 05:54 11:22 12:18 WBC (3.8-10.6) k/uL RBC (4.30-5.90) m/uL Hgb (13.0-17.5) gm/dL Hct (39.0-53.0) % MCV (80.0-100.0) fL D-Dimer 3.78 H (<0.60) mg/L FEU ABG pH (7.35-7.45) ABG pCO2 (35-45) mmHg ABG pO2 (83-108) mmHg ABG O2 Saturation (94-97) % Sodium (137-145) mmol/L Chloride (98-107) mmol/L Carbon Dioxide (22-30) mmol/L BUN (9-20) mg/dL Creatinine (0.66-1.25) mg/dL Glucose (74-99) mg/dL POC Glucose (mg/dL) (75-99) mg/dL Calcium (8.4-10.2) mg/dL Ionized Calcium Leandra (4.5-5.3) mg/dL Phosphorus 8.4 H (2.5-4.5) mg/dL Alkaline Phosphatase (38-126) U/L Lactate Dehydrogenase 1750 H (313-618) U/L C-Reactive Protein >45.0 H (<1.0) mg/dL Total Protein (6.3-8.2) g/dL Albumin (3.5-5.0) g/dL Procalcitonin 7.70 H (0.02-0.09) ng/mL 11/19/21 11/19/21 11/19/21 Range/Units 12:22 18:31 20:05 WBC (3.8-10.6) k/uL RBC (4.30-5.90) m/uL Hgb (13.0-17.5) gm/dL Hct (39.0-53.0) % MCV (80.0-100.0) fL D-Dimer (<0.60) mg/L FEU ABG pH (7.35-7.45) ABG pCO2 (35-45) mmHg ABG pO2 (83-108) mmHg ABG O2 Saturation (94-97) % Sodium (137-145) mmol/L Chloride (98-107) mmol/L Carbon Dioxide (22-30) mmol/L BUN (9-20) mg/dL Creatinine (0.66-1.25) mg/dL Glucose (74-99) mg/dL POC Glucose (mg/dL) 125 H 271 H 270 H (75-99) mg/dL Calcium (8.4-10.2) mg/dL Ionized Calcium Leandra (4.5-5.3) mg/dL Phosphorus (2.5-4.5) mg/dL Alkaline Phosphatase (38-126) U/L Lactate Dehydrogenase (313-618) U/L C-Reactive Protein (<1.0) mg/dL Total Protein (6.3-8.2) g/dL Albumin (3.5-5.0) g/dL Procalcitonin (0.02-0.09) ng/mL 11/20/21 11/20/21 11/20/21 Range/Units 04:34 05:48 05:50 WBC (3.8-10.6) k/uL RBC (4.30-5.90) m/uL Hgb (13.0-17.5) gm/dL Hct (39.0-53.0) % MCV (80.0-100.0) fL D-Dimer (<0.60) mg/L FEU ABG pH 7.29 L (7.35-7.45) ABG pCO2 47 H (35-45) mmHg ABG pO2 41 L* (83-108) mmHg ABG O2 Saturation 74.0 L (94-97) % Sodium 132 L (137-145) mmol/L Chloride 97 L (98-107) mmol/L Carbon Dioxide 21 L (22-30) mmol/L BUN 87 H (9-20) mg/dL Creatinine 5.69 H (0.66-1.25) mg/dL Glucose 221 H (74-99) mg/dL POC Glucose (mg/dL) 211 H (75-99) mg/dL Calcium 7.1 L (8.4-10.2) mg/dL Ionized Calcium Leandra 4.0 L (4.5-5.3) mg/dL Phosphorus 6.1 H (2.5-4.5) mg/dL Alkaline Phosphatase 150 H (38-126) U/L Lactate Dehydrogenase (313-618) U/L C-Reactive Protein (<1.0) mg/dL Total Protein 5.6 L (6.3-8.2) g/dL Albumin 2.9 L (3.5-5.0) g/dL Procalcitonin (0.02-0.09) ng/mL 11/20/21 11/20/21 Range/Units 05:50 06:23 WBC 14.1 H (3.8-10.6) k/uL RBC 3.02 L (4.30-5.90) m/uL Hgb 10.5 L (13.0-17.5) gm/dL Hct 30.9 L (39.0-53.0) % MCV 102.4 H (80.0-100.0) fL D-Dimer (<0.60) mg/L FEU ABG pH (7.35-7.45) ABG pCO2 (35-45) mmHg ABG pO2 (83-108) mmHg ABG O2 Saturation (94-97) % Sodium (137-145) mmol/L Chloride (98-107) mmol/L Carbon Dioxide (22-30) mmol/L BUN (9-20) mg/dL Creatinine (0.66-1.25) mg/dL Glucose (74-99) mg/dL POC Glucose (mg/dL) 255 H (75-99) mg/dL Calcium (8.4-10.2) mg/dL Ionized Calcium Leandra (4.5-5.3) mg/dL Phosphorus (2.5-4.5) mg/dL Alkaline Phosphatase (38-126) U/L Lactate Dehydrogenase (313-618) U/L C-Reactive Protein (<1.0) mg/dL Total Protein (6.3-8.2) g/dL Albumin (3.5-5.0) g/dL Procalcitonin (0.02-0.09) ng/mL Microbiology - Last 24 Hours (Table) 11/16/21 00:20 Blood Culture - Preliminary Blood No Growth after 96 hours 11/16/21 23:49 Blood Culture - Preliminary Blood No Growth after 72 hours Assessment and Plan Assessment: Acute hypoxemic respiratory failure, secondary to coronavirus associated pneumonia, with possible bacterial pneumonia as well. Status post cardiopulmonary arrest, cardiopulmonary resuscitation and intermittent return of spontaneous circulation, lasting more than 1 hour. Recent hospitalization between November 10 and November 13, for second-degree heart block, status post dual-chamber pacemaker implantation. History of atrial fibrillation. History of diabetes mellitus. History of gastroesophageal reflux disease. History of hyperlipidemia. History of hypertension. History of hypothyroidism. History of diabetic neuropathy. Stage III chronic kidney disease. History of colon cancer, colonic resection. History of sleep apnea syndrome. Plan: Plan dated 11/17/2021. The patient is not a candidate for REM, because of his renal dysfunction. Addition, the patient's currently on Zosyn for suspected right upper lobe bacterial pneumonia, and hence is not a candidate for DOMENICO. The patient is currently on a nonrebreather mask and 15 L high flow nasal O2. The patient not receiving any IV fluids. The patient has been seen by infectious diseases. The patient is on vitamin C, zinc, and vitamin D3. The patient is currently also on Lovenox, and Decadron. Prognosis is guarded. If his oxygenation worsens, patient may be a candidate for AIRVO, BiPAP, or in the worse case scenario, intubation and mechanical ventilation. We will continue to follow make recommendations were appropriate. Prognosis is guarded. Plan dated 11/18/2021. The patient's overall condition has deteriorated. The patient is not on BiPAP at 100%. Arterial blood gases are borderline. Earlier today, he pulled off his BiPAP mask, and saturations drop down into the 60s. He is a bit tachypnea. I don't know that he understands my conversation about CODE STATUS, ICU, and intubation with mechanical ventilation. I am going to call his to discuss further. Prognosis is very poor. If he ends up in the intensive care unit, on the ventilator, I don't believe he will do well, and he will likely circumferential this illness, given the rapid progression of his disease. Additional recommendations and suggestions are forthcoming. Plan dated 11/19/2021. The patient has been reasonably stable all night. This morning he pulled off his BiPAP mask, and he did desaturate down into the mid 60s. He did recover once the mass was placed back on his facial area. The patient will have either a midline or PICC line placed, for PPN. Currently, the patient's on saline at 100 mL an hour. The patient is receiving both Decadron and Lovenox. He does have worsening renal function. He remains on Zosyn as per infectious diseases. Unnecessary medications will be discontinued. The patient really cannot take anything by mouth. Prognosis is certainly guarded. I did have a long conversat ion with the patient's , and she insisted on intubation and mechanical ventilation should it come to that. Plan dated 11/20/2021. The blood gases done on 100% oxygen, showed a pO2 that was only 41. I asked the nurse to call anesthesia and have the patient intubated. Initial vent settings included a volume assist control, rate 24, tidal volume 450, FiO2 100%, and PEEP of 10. Subsequent to this, the patient received propofol for sedation, and then developed hypotension. The patient initially received fluids, norepinephrine, and vasopressin, all at maximal doses. The patient also received 1 dose of Nimbex, 10 mg IV push. Unfortunately, the patient then developed cardiopulmonary arrest, with pulseless electrical activity. The patient was resuscitated for more than an hour. The resuscitation started at 0619, and ended at 0725. The patient's was in the hallway, outside the patient's room. We did speak to her, and let her know that there was nothing more that can be done. After more than 1 hour resuscitation efforts, the code was called. The patient's was then allowed to go into the room, and sit by his bedside. Time with Patient: Greater than 30
[2021-11-20] MEDS ORDERED: 1: MVI, ADULT NO.4 WITH VIT K 10 ML, TRACE (CONC-1ML/DOSE) 1 ML, PARENTERAL ELECTROLYTES IV SCH ×4 (14:00)
== END 2021-11-20 09:23 | disposition expired | DRG 871 ==
LOC: EC → 3SCARD 03:28 → 2SICU 11-18 13:56
PROVIDERS: ADMIT Family Medicine; ATTEND Family Medicine
PROC: 5A0935A Assistance with Respiratory Ventilation, Less than 24 Consecutive Hours, High Flow/Velocity Cannula (ICD-10-PCS; 2021-11-17)
PROC: 5A09457 Assistance with Respiratory Ventilation, 24-96 Consecutive Hours, Continuous Positive Airway Pressure (ICD-10-PCS; 2021-11-19)
PROC: 02HV33Z Insertion of Infusion Device into Superior Vena Cava, Percutaneous Approach (ICD-10-PCS; 2021-11-19)
PROC: 3E0436Z Introduction of Nutritional Substance into Central Vein, Percutaneous Approach (ICD-10-PCS; 2021-11-19)
PROC: 5A1935Z Respiratory Ventilation, Less than 24 Consecutive Hours (ICD-10-PCS; principal; 2021-11-20)
PROC: 0BH17EZ Insertion of Endotracheal Airway into Trachea, Via Natural or Artificial Opening (ICD-10-PCS; principal; 2021-11-20)
PROC: 3E043XZ Introduction of Vasopressor into Central Vein, Percutaneous Approach (ICD-10-PCS; 2021-11-20)
PROC: 5A12012 Performance of Cardiac Output, Single, Manual (ICD-10-PCS; 2021-11-20)
PROC: 0D9670Z Drainage of Stomach with Drainage Device, Via Natural or Artificial Opening (ICD-10-PCS; 2021-11-20)
DX: A41.89 Other specified sepsis (principal); U07.1 COVID-19; N17.0 Acute kidney failure with tubular necrosis; J96.01 Acute respiratory failure with hypoxia; J12.82 Pneumonia due to coronavirus disease 2019; J15.9 Unspecified bacterial pneumonia; E87.2 Acidosis; I48.20 Chronic atrial fibrillation, unspecified; N18.5 Chronic kidney disease, stage 5; E03.9 Hypothyroidism, unspecified; E11.22 Type 2 diabetes mellitus with diabetic chronic kidney disease; E11.40 Type 2 diabetes mellitus with diabetic neuropathy, unspecified; E78.5 Hyperlipidemia, unspecified; F32.A Depression, unspecified; F41.9 Anxiety disorder, unspecified; G25.81 Restless legs syndrome; G89.29 Other chronic pain; I12.9 Hypertensive chronic kidney disease with stage 1 through stage 4 chronic kidney disease, or unspecified chronic kidney disease; K57.90 Diverticulosis of intestine, part unspecified, without perforation or abscess without bleeding; G43.909 Migraine, unspecified, not intractable, without status migrainosus; I95.9 Hypotension, unspecified; I25.10 Atherosclerotic heart disease of native coronary artery without angina pectoris; G20 Parkinson's disease; I44.1 Atrioventricular block, second degree; Z95.0 Presence of cardiac pacemaker; I46.9 Cardiac arrest, cause unspecified; E83.9 Disorder of mineral metabolism, unspecified; M54.9 Dorsalgia, unspecified; N40.0 Benign prostatic hyperplasia without lower urinary tract symptoms; Z79.4 Long term (current) use of insulin; Z79.82 Long term (current) use of aspirin; Z79.890 Hormone replacement therapy; Z79.899 Other long term (current) drug therapy; Z80.8 Family history of malignant neoplasm of other organs or systems; Z82.49 Family history of ischemic heart disease and other diseases of the circulatory system; Z85.038 Personal history of other malignant neoplasm of large intestine; Z87.891 Personal history of nicotine dependence; Z98.41 Cataract extraction status, right eye; Z96.1 Presence of intraocular lens; Z97.0 Presence of artificial eye; Z96.651 Presence of right artificial knee joint; Z98.890 Other specified postprocedural states; Z71.3 Dietary counseling and surveillance
CPT/HCPCS: 36415; 36573; 36600; 71045; 71046; 76770; 80048; 80053; 81001; 82330; 82805; 83605; 83615; 83735; 83880; 84100; 84145; 84478; 84484; 85025; 85027; 85379; 85610; 85730; 86140; 87040; 87635; 92950; 93005; 93306; 93970; 94002; 94640; 94660; 94760; 96360; 96361; 99291